=== PATIENT | female | born 1945 | race Caucasian/White ===

== ENCOUNTER → 2018-01-11 16:46 | Outpatient (CLI) | payer MEDICARE, SELFPAY | PROVIDERS: Family Provider Internal Medicine; PCP Internal Medicine; Visit Provider Otolaryngology Otolaryngology/Facial Plastic Surgery | DX: J02.9 Acute pharyngitis, unspecified (principal) | CPT/HCPCS: 87070 ==

== ENCOUNTER → 2018-10-24 12:07 | Outpatient (CLI) | payer MEDICARE, SELFPAY ==
--- NOTE | 2018-10-23 | IMM_PTH ---
PATIENT: DL PALOMINO LOC: [facility] U#:[id number] AGE/SX: 80/F ROOM: RE10/24/[address]: Dr. Juliano Ennis MD : 1945 BED: DIS: SPEC #: [id number] RECD: 10/25/18 09:40 STATUS: FREDA REQ #: [id number] KHANH: 10/23/18 00:[address]: Juliano Ennis DEPT: IMMUNOHISTOCHEMISTRY RECD BY: Kisha Stinson ENTERED: 10/25/18 09:41 SP TYPE: IMMUNO OTHR DR: Dr. Anabella Pastrana MD Tissues: A - Stomach, NOS Procedures: H Pylori (initial) PHYSICIAN & INSTITUTION [place] [id number] SPECIMEN INFORMATION: Tissue Source: A - Antral biopsy Clinical Info: K21.9, Z80.0, K62.5 Specimen Number: [id number] CPT code: 29477 METHODOLOGY: Deparaffinized sections of prefer/formalin-fixed tissue or PAP/DQ stained slides are incubated with monoclonal/polyclonal antibodies/oligonucleotide probes. Localization is made via biotin free immunoperoxidase method. Appropriate controls are performed and reacted as expected. Results on target cell population are indicated in the following table: RESULTS: ANTIBODY / CLONE RESULT Block A H Pylori (polyclonal) negative These tests were developed and their performance characteristics determined by [facility]. They may not have been cleared or approved by the U.S. Food and Drug Administration. The FDA has determined that such clearance or approval is not necessary. INTERPRETATION: A. Antral biopsy: Negative for Helicobacter pylori organisms. SJ:jen 10/25/18
--- NOTE | 2018-10-23 09:42 | EGD_PTH ---
PATIENT: DL PALOMINO LOC: [facility] U#:[id number] AGE/SX: 80/F ROOM: RE10/24/[address]: Dr. Juliano Ennis MD : 1945 BED: DIS: SPEC #: [id number] RECD: 10/24/18 12:01 STATUS: FREDA RENga #: [id number] KHANH: 10/23/18 09:[address]: Juliano Ennis DEPT: SURGICAL PATHOLOGY RECD BY: Niles Chen ENTERED: 10/24/18 13:17 SP TYPE: EGD BIOPSY OT DR: Dr. Anabella Pastrana MD Tissues: A - Gastric mucous membrane B - Right colon C - Sigmoid colon biopsy Procedures: Surgery Specimen Level IV HEADER OPERATION: EGD with biopsy and colonoscopy with biopsy PRE-OP DIAGNOSIS: K21.9, Z80.0, K62.5 TISSUE SUBMITTED: A - Antrum biopsy H/H, B - Random right colon biopsy, C - Sigmoid colon polyp MICROSCOPIC DIAGNOSIS A. Antral biopsy: Mild gastritis. See microscopic description and comment. B. Right colon, random biopsy; Fragments of colonic mucosa, no pathologic diagnosis. C. Sigmoid colon polyp, biopsy: Fragments of colonic mucosa, no pathologic diagnosis. SJ:rg 10/25/18 COMMENT A. The results of immunohistochemistry for Helicobacter pylori will be reported separately ([id number]). MICROSCOPIC DESCRIPTION Slides are reviewed. A. The specimen shows fragments of gastric mucosa with chronic inflammatory cell infiltrates in the lamina propria consisting of lymphocytes and plasma cells, consistent with mild chronic gastritis. GROSS DESCRIPTION A - Received in fixative is one container labeled with the patient's name and designated antral biopsy. The specimen consists of one irregular fragment of light quinn soft tissue that measures 0.5 x 0.3 x 0.1 cm. The specimen is totally submitted in one cassette. B - Received in fixative is one container labeled with the patient's name and designated random right colon biopsy. The specimen consists of multiple irregular fragments of light quinn soft tissue that in aggregate measure 1.5 x 0.5 x 0.1 cm. The specimen is totally submitted in one cassette. C - Received in fixative is one container labeled with the patient's name and designated sigmoid colon polyp. The specimen consists of two irregular fragments of light quinn soft tissue that in aggregate measure 0.6 x 0.2 x 0.1 cm. The specimen is totally submitted in one cassette. / SJ:rg 10/24/18 TC:3 CPT: 27935 x3
== END ==
PROVIDERS: Family Provider Internal Medicine; PCP Internal Medicine; Referring Provider Internal Medicine Gastroenterology; Visit Provider Internal Medicine Gastroenterology
DX: K21.9 Gastro-esophageal reflux disease without esophagitis (principal); K62.5 Hemorrhage of anus and rectum; Z80.0 Family history of malignant neoplasm of digestive organs
CPT/HCPCS: 88305; 88342

== ENCOUNTER 2020-03-19 08:15 | Inpatient (IN) | payer MEDICARE, SELFPAY ==
[2020-03-19] VITALS (11 sets, daily range): BP systolic 137–157; BP diastolic 67–109; PULSE 91–113; RESP 16–20; TEMP 36.6–38.1; O2SAT 82–98; BMI 37.0; BMI 37.2
--- NOTE | 2020-03-19 08:38 | EKG12_ITS ---
Test Reason : ABD PAIN Blood Pressure : / mmHG Vent. Rate : 100 BPM Atrial Rate : 100 BPM P-R Int : 202 ms QRS Dur : 086 ms QT Int : 326 ms P-R-T Axes : 042 -23 060 degrees QTc Int : 420 ms Normal sinus rhythm Normal ECG Confirmed by TALA CARNES, ILA ([id number]), photograph editor PENG BA ([id number]) on 03/24/2020 9:25:44 AM Referred By: JOE Confirmed By:RASHEL EDGAR MD
[2020-03-19] MEDS: HYDROmorphone 1 MG/ML Syringe IV (08:48)
[2020-03-19] MEDS: Ondansetron 4 MG/2 ML Vial IV ×3 (08:48→23:29)
--- NOTE | 2020-03-19 08:50 | CT_ITS ---
STUDY: CT ABDOMEN AND PELVIS WITHOUT CONTRAST REASON FOR EXAM: Female, 74 years old. NAUSEA AND VOMITING SINCE LAST NIGHT RADIATION DOSAGE (If Supplied By Facility): CTDIvol = ( 15.18 ) mGy, DLP = ( 769.85 ) mGycm TECHNIQUE: Transaxial images were obtained from the dome of the diaphragm to the symphysis pubis without oral contrast, and without intravenous contrast. Sagittal and coronal images were reconstructed. Individualized dose optimization techniques were used for this CT. COMPARISON: None. FINDINGS: Minimal increased markings at the lung bases suggestive of atelectasis and/or scarring. Coronary artery calcification. Normal liver. There are multiple small gallstones. The gallbladder is slightly distended. Normal spleen. Mild degree of pancreatitis should be ruled out.There is a mild degree of increased markings in the root of the mesentery. This is nonspecific and may represent changes secondary to inflammatory process. There is thickening of the left perinephric fascia. Normal bilateral adrenal glands. Normal right kidney. There is a punctate nonobstructive calculus in the lower pole calyx of the left kidney. There is a small hiatal hernia. Normal small intestine. There are multiple colonic diverticula consistent with diverticulosis. There is non-visualization of the appendix. There is diffuse atherosclerotic calcification of the abdominal aorta, without a demonstrated aneurysm. Normal inferior vena cava. Normal retroperitoneum. Normal urinary bladder. There is absence of the uterus consistent with a prior hysterectomy. Normal abdominal wall. There are diffuse degenerative changes of the visualized lumbar spine. Marked degree of levoscoliosis. CT/Abdomen/Pelvis without Cont IMPRESSION: Mildly distended gallbladder containing multiple small stones. Increased markings in the root of the mesentery and in the peripancreatic region extending into the left anterior pararenal space. Pancreatitis should be ruled out. Electronically Signed: Luis Lynne, at 9:45 EDT , Service support ,
--- NOTE | 2020-03-19 08:51 | ED.DCSUM_ITS ---
- ER Visit Summary Date of Service: 03/19/20 Chief Complaint: [Abdominal pain] History of Present Illness: The patient is a 74 F [does the emergency department complaint of abdominal pain that started around noon yesterday. Patient states that she had eaten around 8 AM but the pain did not start up about 4 hours later. She described the pain as sharp and stabbing in the upper abdomen radiating into her chest and at times down her left arm. Patient states the pain seems to radiate out her back as well. She has had multiple episodes of nausea and vomiting now having dry heaves. At times she is noted some blood- tinged emesis. No history of peptic ulcer disease. She still has her gallbladder. She is had prior appendectomy. Patient is also had prior hysterectomy. Patient denies urinary symptoms. She denies any fever. Patient has history of diabetes, hypertension, and high cholesterol.] Physical Examination: [HEENT-PERRLA, EOMI. Cranial nerves II through XII grossly intact. TMs clear. Mucous membranes moist. No adenopathy. Cardiovascular-regular rate and rhythm without murmur or ectopy Lungs-clear to auscultation, chest wall stable without crepitus or subcu emphysema Abdomen-normoactive bowel sounds, soft. Patient has diffuse tenderness to the upper abdomen in the epigastric region as well as the right upper quadrant with guarding. She is got a positive Leong sign. She does have guarding. No rebound or rigidity noted. Extremities-intact ?4, normal range of motion, normal pulses, atraumatic] Test Results: [EKG obtained on arrival shows sinus rhythm with a ventricular rate of 100 bpm with no acute segment changes. CBC with differential obtained showed a white count 12.2, hemoglobin 13, hematocrit 38, placed 346. Chemistries unremarkable. LFTs showed a total bili of 1.9, alk phos 128, ALT 89, AST 74, lipase is 15,985. Troponin was less than 0.015. CT scan of the abdomen pelvis obtained showed mildly distended gallbladder with small stones and sludge noted patient also had increased markings around the pancreas consistent with pancreatitis. Patient had also an ultrasound of the gallbladder that showed small gallstones with a gallbladder wall thickness of 2.6 mm and the common bile duct diameter 3.4 mm. There was no pericholecystic fluid. Patient was noted to have some sludge.] Emergency Department Course and Treatment: [IV line established. Patient was me dicated with Zofran 4 mg IV as well as Dilaudid 1 mg IV.] Treatment Plan: [Case discussed with hospitalist will evaluate patient for admission. Hospitalist did speak with general surgeon on-call.] Disposition: [Admit] Impression: [Abdominal pain Acute pancreatitis Cholelithiasis] This note was generated with [employer] dictation software. It may contain incorrect words, spelling, and punctuation that were not noted in review of the chart prior to signing ED Disposition - Plan for ED Patient: Referrals: Anabella Pastrana MD [Primary Care Provider] -
[2020-03-19] MEDS: 0.9% Normal Saline 1,000 ML 999 ML IV (08:53)
[2020-03-19 08:59] LABS: Absolute Lymphocyte Count 0.99 X10^3/uL (0.83-4.51); Absolute Neutrophil Count 10.6 X10^3/uL (2.0-7.7); Basophil# 0.01 X10^3/uL; Basophil% 0.1 % (0-1); Hemoglobin 13.1 g/dL (12.0-15.0); Lymphocyte # 0.99 X10^3/ul (4.0); Lymphocyte % 8.1 % (19-41); Mean Corp Hgb Conc 34.5 g/dL (32-36); Mean Corpuscular Hgb 29.2 pg (27.0-32.0); Mean Corpuscular Volume 84.8 fL (81-99); Mean Platelet Vol. 9.6 fl (6.2-12.0); Monocyte# 0.56 X10^3/uL; Monocyte% 4.6 % (0-10); NRBC Flagged by Analyzer 0 % (0-5); Neutrophil # 10.62 X10^3/uL (2.7-7.7); Neutrophil % 86.9 % (47-70); Platelet Count 346 K/mm3 (150-450); RBC Distribution Width CV 14.8 % (11.6-14.6); RBC Distribution Width SD 43.3 fl (35.1-43.9); Red Blood Count 4.48 M/mm3 (4.2-5.4); White Blood Count 12.2 K/mm3 (4.4-11.0)
[2020-03-19 09:18] LABS: ALB/GLOB Ratio 0.9 RATIO (0.9-2.4); AST(SGOT) 74 U/L (15-37); Alanine Aminotransfer ALT/SGPT 89 U/L (13-56); Albumin, Serum 3.9 g/dL (3.2-5.0); Alkaline Phosphatase 128 U/L (45-117); Anion Gap 5 (5-15); BUN 11 mg/dL (7-18); BUN/Creat Ratio 12.6 RATIO (10-20); Calcium,Total 8.8 mg/dL (8.5-10.1); Chloride 98 mmol/L (98-107); Creatinine, Serum 0.87 mg/dL (0.55-1.02); EST Glomerular Filtration Rate 67 mL/min (>60); Est Glom Filt Rate - Afr Amer 81 mL/min (>60); Estimated Creatinine Clearance 41.37 ml/min; Globulin 4.2 g/dL (2.2-4.2); Glucose 191 mg/dL (74-106); Lipase 15985 U/L (73-393); Potassium 3.5 mmol/L (3.5-5.1); Protein, Total 8.1 g/dL (6.4-8.2); Sodium Level 133 mmol/L (136-145)
[2020-03-19 09:23] LABS: Lactic Acid 1.5 mmol/L (0.4-1.9)
--- NOTE | 2020-03-19 09:28 | US_ITS ---
STUDY: ABDOMINAL ULTRASOUND - RIGHT UPPER QUADRANT REASON FOR VISIT: Female, 74 years old RT ABD PAIN X 2 DAYS TECHNIQUE: Ultrasound evaluation of the right upper quadrant was performed with real-time and static ko-scale imaging. TECHNICAL QUALITY: Adequate. COMPARISON: Comparison is made with prior CT scan abdomen and pelvis done earlier in the day. FINDINGS: Liver: The liver measures 17.0 cm. There is increased echogenicity consistent with fatty infiltration. The bile ducts are within normal limits. There is hepatic color flow. The direction of portal flow is hepatopetal. There is no demonstrated mass lesion. Gallbladder: Normal distended gallbladder. The gallbladder wall measures 2.6 mm. There is a negative sonographic Leong''s sign. There is no pericholecystic fluid. There are multiple echogenic structures within the gallbladder, consistent with multiple small gallstones. Sludge is also seen within the gallbladder lumen. Common Bile Duct (C.B.D.): The common bile duct measures 3.4 mm. Pancreas: Normal size of the head, body and tail of the pancreas. There is increased echogenicity of the pancreas. There is no demonstrated pancreatic mass or cyst. Right Kidney: Normal size of the right kidney. The right kidney measures 11.6 cm x 5.6 cm x 4.9 cm. Normal renal cortex. The right cortex measures 1.7 cm. There is no demonstrated renal mass or cyst. There is no right hydronephrosis. US/Abdomen Limited IMPRESSION: Fatty infiltration of the liver. Multiple small gallstones and sludge within the gallbladder lumen. Electronically Signed: Luis Lynne, at 10:37 EDT , Service support ,
[2020-03-19 10:43] LABS: Mucous, Urine 0 SEEN /hpf (<or=2+); Red Blood Cells-Urine 0 SEEN /hpf (0-5); White Blood Cells 0 SEEN /hpf (0-5)
[2020-03-19 10:44] LABS: Color, Urine Yellow (Yellow); Glucose, Dipstick 50 mg/dl (Normal); Ketone-Dipstick 5 mg/dl (Negative); Leukocyte Esterase-Dipstick Negative /ul (Negative); Nitrite-Dipstick Negative (Negative); Occult Blood-Urine Negative /ul (Negative); Protein-Dipstick 30 mg/dl (Negative); Specific Gravity, Urine 1.025 (1.002-1.030); Urine Bilirubin Dipstick Negative (Negative); Urine Clarity Sl. Cloudy (Clear); Urine Urobilinogen 1 mg/dl (Normal)
--- NOTE | 2020-03-19 10:44 | NURSING ---
DR PLUMMER FOR DR SANABRIA
[2020-03-19 10:52] LABS: Bacteria 1+ /hpf (None Seen); Squamous Epithelial Cells - UA 0-5 SEEN /hpf (5-10)
--- NOTE | 2020-03-19 10:59 | NURSING ---
MED SURG KAVITHA ROGERREATITIS, CHOLELITHIASIS
--- NOTE | 2020-03-19 11:09 | HP.PCM_ITS ---
Problem List (1) Gallstones Status: Acute (2) Acute pancreatitis Status: Acute (3) Type 2 diabetes mellitus Status: Chronic (4) Hypothyroidism Status: Chronic (5) Hypertension Status: Chronic (6) Asthma Status: Chronic (7) Hyperlipidemia Status: Chronic (8) GERD (gastroesophageal reflux disease) Status: Chronic History of Present Illness Date of Admission: 03/19/20 Chief Complaint: Abdominal pain. The patient is a 74 year old F with past medical history as mentioned above presented to the emergency room because of abdominal pain. Her symptoms started yesterday morning after she took her breakfast around 11 AM, started having abdominal pain, upper abdomen/epigastric pain, sharp pain, 10 out of 10 in severity, constant, radiates to the back and up to her chest, associated with nausea and vomiting, no relieving or aggravating factors and she could not keep anything down to her stomach since yesterday morning. She denied fever or chills. She mentioned that she took Gaviscon as well as lansoprazole and both did not help. In the emergency department, she was tachycardic, afebrile, blood pressure was slight elevated, pulse ox was 98% on room air. Routine blood work was remarkable for leukocytosis,, otherwise normal. LFT revealed total bilirubin of 1.9, AST of 74 and ALT of 89, alkaline phosphatase was 129. Lipase was 15,985. EKG revealed normal sinus rhythm without evidence of acute segment changes. Troponin was negative. CT scan abdomen and pelvis revealed increased marking in the root of mesentery and in the peripancreatic region consistent with acute pancreatitis, gallbladder was mildly distended with multiple small gallstones. Ultrasound liver revealed fatty liver, multiple small gallstones and sludge, CBD diameter was 3.4 mm. She is being admitted for acute pancreatitis for treatment. Past Medical History Past Medical History (Chronic Problems): Chronic Problems Type 2 diabetes mellitus (Chronic) Hypothyroidism (Chronic) Hypertension (Chronic) Asthma (Chronic) Hyperlipidemia (Chronic) GERD (gastroesophageal reflux disease) (Chronic) Allergies Penicillins Allergy (Verified 03/19/20 08:20) Rash Sulfa (Sulfonamide Antibiotics) Allergy (Verified 03/19/20 08:20) Rash sertraline Adverse Reaction (Verified 03/19/20 08:20) Other CALCIUM CITRATE Adverse Reaction (Uncoded 03/19/20 08:20) Other Surgical History: appendectomy, hysterectomy Psychiatric History: No pertinent psych hx FIELD EDUCATION COORDINATOR History: No pertinent FIELD EDUCATION COORDINATOR history Lives: Spouse/ Significant Other Smoking Status: Never smoker Alcohol: None Drugs: None - *Family History Maternal History Items: No pertinent history Paternal History Items: No pertinent history Review of Systems Constitutional: Reports: Anorexia. Denies: Chills, Fever, Weakness Eyes: Denies: Blurred vision, Double vision, Drainage, Redness HEENT: Denies: Difficulty Hearing, Ear Pain, Eye Pain, Nasal Congestion, Sore Throat Cardiovascular: Denies: Chest Pain, Claudication, Chest Pressure, Edema, Heaviness, Palpitations, Paroxysmal Noc. Dyspnea, Syncope Respiratory: Denies: Cough, Pleuritic Pain, Shortness of Breath, Sputum production, Wheezing Gastrointestinal: Reports: Abdominal Pain, Nausea, Vomiting. Denies: Constipation, Diarrhea, Hematochezia, Melena Genitourinary: Denies: Dysuria, Frequency, Hematuria Musculoskeletal: Denies: Arm Pain, Back Pain, Foot Pain Skin: Denies: Dryness, Rash Neurological: Denies: Balance problems, Double vision, Slurred speech, Confusion, Headaches, Incoordination, Numbness Psychiatric: Denies: Anxiety, Depression Endocrine: Denies: Change in Body Habitus, Polydipsia, Polyuria VTE Information - Inpt Only VTE Present on Admission: No VTE Mechan Device Prophylaxis: None VTE Pharm Prophylaxis ordered?: Yes Patient Problems: Active and Suspected Problems Gallstones (Acute) Acute pancreatitis (Acute) - Physical Exam Vitals/I&O's: Vital Signs Temp Pulse Resp BP Pulse Ox 98 F 113 H 20 H 157/109 H 98 03/19/20 08:17 03/19/20 08:17 03/19/20 10:44 03/19/20 08:17 03/19/20 08:17 Oxygen Delivery Method Room Air Weight: 190 lb Body Mass Index (BMI) 37.0 General: Alert, Oriented x3, Cooperative, No apparent distress HEENT: Atraumatic, PERRLA, EOMI, Normocephalic Oral: Moist Mucosa, No Gingival or Mucosal Lesions/ Ulcerations Neck: Supple, No JVD, Negative Carotid Bruits, Trachea Midline, Thyroid Normal Size and Texture Lungs: Clear to auscultation, Normal air movement, No rhonchi, No wheeze, No rales Cardiovascular: Regular rate, Regular Rhythm, Normal S1, Normal S2, No murmurs, PMI Normal, Tachycardic Abdomen: Bowel Sounds Present, Soft, Non-Distended, No Hepato-splenomegaly, Tender - Epigastric tenderness, no guarding or rigidity. Extremities: No clubbing, No cyanosis, No edema Skin: No rashes, No breakdown Lymphatic: No Cervical, Supraclavicular, or Inguinal Adenopathy Neurological: Cranial nerves II-XII grossly intact, Motor Exam 5/5 strength throughout Psych/Mental Status: Normal Affect, Appropriate, Alert and oriented to time, place, person, mood and affect Laboratory Results 03/19/20 08:50: WBC 12.2 H, RBC 4.48, Hgb 13.1, Hct 38.0, MCV 84.8, MCH 29.2, MCHC 34.5, RDW Std Deviation 43.3, RDW Coeff of Clarence 14.8 H, Plt Count 346, MPV 9.6, Immature Gran % (Auto) 0.300, Neut % (Auto) 86.9 H, Lymph % (Auto) 8.1 L, [place] % (Auto) 4.6, Eos % (Auto) 0.0, Baso % (Auto) 0.1, Absolute Neuts (auto) 10.6 H, Absolute Lymphs (auto) 0.99, Nucleated RBC % 0 03/19/20 08:50: Sodium 133 L, Potassium 3.5, Chloride 98, Carbon Dioxide 30.0, Anion Gap 5, BUN 11, Creatinine 0.87, Estim Creat Clear Calc 41.37, Est GFR (MDRD) Af Amer 81, Est GFR (MDRD) Non-Af 67, BUN/Creatinine Ratio 12.6, Glucose 191 H, Calcium 8.8, Total Bilirubin 1.90 H, AST 74 H, ALT 89 H, Alkaline Phosphatase 128 H, Troponin I < 0.015, Total Protein 8.1, Albumin 3.9, Globulin 4.2, Albumin/Globulin Ratio 0.9, Lipase 04234 H 03/19/20 08:50: Lactic Acid 1.5 03/19/20 10:40: Urine Color Yellow, Urine Clarity Sl. Cloudy, Urine pH 5.0, Ur Specific [place] 1.025, Urine Protein 30 H, Urine Glucose (UA) 50 H, Urine Ketones 5 H, Urine Occult Blood Negative, Urine Nitrite Negative, Urine Bilirubin Negative, Urine Urobilinogen 1 H, Ur Leukocyte Esterase Negative, Urine RBC 0 SEEN, Urine WBC 0 SEEN, Ur Squamous Epith Cells 0-5 SEEN, Urine Bacteria 1+, Urine Mucus 0 SEEN Clinical Impression(s) from Imaging Studies Abdomen/Pelvis CT 03/19/20 08:50 IMPRESSION: Mildly distended gallbladder containing multiple small stones. Increased markings in the root of the mesentery and in the peripancreatic region extending into the left anterior pararenal space. Pancreatitis should be ruled out. Electronically Signed: Luis Lynne, at 9:45 EDT , Service support , Abdomen Ultrasound 03/19/20 09:28 IMPRESSION: Fatty infiltration of the liver. Multiple small gallstones and sludge within the gallbladder lumen. Electronically Signed: Luis Lynne, at 10:37 EDT , Service support , Current Medications Sodium Chloride () 1,000 mls @ 125 mls/hr IV .Q8H KELL Assessment/Plan All Active Problems Gallstones (Acute) Acute pancreatitis (Acute) This is a 74 years old female patient presented with abdominal pain with nausea and vomiting and she was found to have acute pancreatitis and she is being admitted for treatment. #1 acute pancreatitis: CT scan abdomen as well as ultrasound liver reviewed. CBD diameter on ultrasound was 3.4 mm. LFT revealed elevated total bilirubin as well as slight elevated liver transaminases and alkaline phosphatase. This acute pancreatitis could be due to gallstone pancreatitis with possibly stone passed down. Patient denied alcohol drinking. Plan: Admit to MedSurg, telemetry, n.p.o., IV fluids, IV morphine PRN for pain, IV antiemetics, IV Protonix twice daily, IV Phenergan as needed, general surgery consult, repeat CBC, CMP and lipase tomorrow morning. #2 elevated LFT: Without evidence of acute cholecystitis on ultrasound. This is could be due to CBD stone that passed down already. Plan as above, repeat LFT tomorrow morning, repeat lipase tomorrow morning. #3 type 2 diabetes mellitus: N.p.o., IV fluids, Accu-Cheks every 6 hours, insulin sliding scale, hold p.o. oral hypoglycemics. #4 hypertension: Blood pressure stable, hold antihypertensive medication at this time, start IV allergy PRN. #5 hypothyroidism: Hold levothyroxine. #6 bronchial asthma: Clinically stable, pulse ox maintained on room air. Plan for albuterol PRN. #7 hyperlipidemia: Hold statins. #8 GERD: Start IV Protonix twice daily. #9 DVT prophylaxis: Subcu Lovenox. This note was generated with [employer] dictation software. It may contain incorrect words, spelling, and punctuation that were not noted in checking the note before signing. Inpatient E&M: 56649 Init Hosp L3
[2020-03-19] MEDS: 0.9% Saline Lock 10 ML Syringe IV ×3 (12:51→16:16)
[2020-03-19 13:01] LABS: Bedside Glucose 176 mg/dL (70-110)
--- NOTE | 2020-03-19 13:03 | PCM.CONS.GEN ---
Problem List (1) Gallstone pancreatitis Status: Acute Reason for Consult Date of Consultation: 03/19/20 History of Present Illness: The patient is a 74 year old F admitted with gallstone pancreatitis. The patient reports that yesterday morning she began having epigastric pain that radiated into her chest. She has been having a lot of nausea and vomiting as well. She does not report any gallbladder issues in the past. She is not having any fevers or chills. She reports with the amount of pain now is yesterday. Past Medical History Past Medical History (Chronic Problems): Chronic Problems Type 2 diabetes mellitus (Chronic) Hypothyroidism (Chronic) Hypertension (Chronic) Asthma (Chronic) Hyperlipidemia (Chronic) GERD (gastroesophageal reflux disease) (Chronic) Allergies Penicillins Allergy (Verified 03/19/20 08:20) Rash Sulfa (Sulfonamide Antibiotics) Allergy (Verified 03/19/20 08:20) Rash sertraline Adverse Reaction (Verified 03/19/20 08:20) Other CALCIUM CITRATE Adverse Reaction (Uncoded 03/19/20 08:20) Other Home Medications: Ambulatory Orders Medication Instructions Recorded Albuterol Sulfate [Albuterol 2 puff INHALATION Q6H PRN PRN 03/19/20 Sulfate HFA] Amlodipine [Norvasc] 10 mg PO DAILY 03/19/20 Atorvastatin Calcium 10 mg PO QHS 03/19/20 Ergocalciferol (Vitamin D2) 50,000 unit PO QWEEK 03/19/20 [Vitamin D2] Irbesartan/Hydrochlorothiazide 1 ea PO DAILY 03/19/20 [Irbesartan-Hctz 300-12.5 mg Tb] Lansoprazole [Prevacid] 30 mg PO QODAY 03/19/20 Levothyroxine [Synthroid] 75 mcg PO DAILY 03/19/20 Metformin HCl [Glucophage] 2 tab PO BID 03/19/20 Metoprolol Tartrate 25 mg PO BID 03/19/20 Potassium Chloride 8 meq PO BID 03/19/20 Surgical History: appendectomy, hysterectomy Psychiatric History: No pertinent psych hx [employer] History: No pertinent [employer] history Lives: Spouse/ Significant Other Smoking Status: Never smoker Alcohol: None Drugs: None - *Family History Maternal History Items: No pertinent history Paternal History Items: No pertinent history Review of Systems Constitutional: Denies: Anorexia, Fever HEENT: Denies: Difficulty Swallowing Cardiovascular: Denies: Chest Pain Respiratory: Denies: Cough, Shortness of Breath Gastrointestinal: Reports: Abdominal Pain, Nausea, Vomiting. Denies: Constipation, Diarrhea Genitourinary: Denies: Dysuria Hematologic/ Lymphatic: Denies: Anemia Patient Problems: Active and Suspected Problems Gallstone pancreatitis (Acute) Gallstones (Acute) Acute pancreatitis (Acute) - Physical Exam Vitals/I&O's: Vital Signs Temp Pulse Resp BP Pulse Ox 98.6 F 96 18 155/83 H 94 03/19/20 12:33 03/19/20 12:33 03/19/20 12:33 03/19/20 12:33 03/19/20 12:33 Oxygen Delivery Method Room Air Weight: 190 lb 8 oz Body Mass Index (BMI) 37.2 General: Alert, Oriented x3, Cooperative Neck: No JVD Lungs: Normal air movement Cardiovascular: Regular rate, Regular Rhythm Abdomen: Soft, Non-Distended, Tender - Tender in the epigastric region and right upper quadrant Extremities: No clubbing Musculoskeletal: No Muscle Wasting Neurological: Cranial nerves II-XII grossly intact Psych/Mental Status: Normal Affect Laboratory Results 03/19/20 08:50: WBC 12.2 H, RBC 4.48, Hgb 13.1, Hct 38.0, MCV 84.8, MCH 29.2, MCHC 34.5, RDW Std Deviation 43.3, RDW Coeff of Clarence 14.8 H, Plt Count 346, MPV 9.6, Immature Gran % (Auto) 0.300, Neut % (Auto) 86.9 H, Lymph % (Auto) 8.1 L, [place] % (Auto) 4.6, Eos % (Auto) 0.0, Baso % (Auto) 0.1, Absolute Neuts (auto) 10.6 H, Absolute Lymphs (auto) 0.99, Nucleated RBC % 0 03/19/20 08:50: Sodium 133 L, Potassium 3.5, Chloride 98, Carbon Dioxide 30.0, Anion Gap 5, BUN 11, Creatinine 0.87, Estim Creat Clear Calc 41.37, Est GFR (MDRD) Af Amer 81, Est GFR (MDRD) Non-Af 67, BUN/Creatinine Ratio 12.6, Glucose 191 H, Calcium 8.8, Total Bilirubin 1.90 H, AST 74 H, ALT 89 H, Alkaline Phosphatase 128 H, Troponin I < 0.015, Total Protein 8.1, Albumin 3.9, Globulin 4.2, Albumin/Globulin Ratio 0.9, Lipase 11177 H 03/19/20 08:50: Lactic Acid 1.5 03/19/20 10:40: Urine Color Yellow, Urine Clarity Sl. Cloudy, Urine pH 5.0, Ur Specific [place] 1.025, Urine Protein 30 H, Urine Glucose (UA) 50 H, Urine Ketones 5 H, Urine Occult Blood Negative, Urine Nitrite Negative, Urine Bilirubin Negative, Urine Urobilinogen 1 H, Ur Leukocyte Esterase Negative, Urine RBC 0 SEEN, Urine WBC 0 SEEN, Ur Squamous Epith Cells 0-5 SEEN, Urine Bacteria 1+, Urine Mucus 0 SEEN 03/19/20 12:47: POC Glucose 176 H 03/19/20 12:55: Total Bilirubin Pending, Direct Bilirubin Pending, AST Pending, ALT Pending, Alkaline Phosphatase Pending, Total Protein Pending, Albumin Pending Clinical Impression(s) from Imaging Studies Abdomen/Pelvis CT 03/19/20 08:50 IMPRESSION: Mildly distended gallbladder containing multiple small stones. Increased markings in the root of the mesentery and in the peripancreatic region extending into the left anterior pararenal space. Pancreatitis should be ruled out. Electronically Signed: Luis Lynne, at 9:45 EDT , Service support , Abdomen Ultrasound 03/19/20 09:28 IMPRESSION: Fatty infiltration of the liver. Multiple small gallstones and sludge within the gallbladder lumen. Electronically Signed: Luis yLnne, at 10:37 EDT , Service support , Current Medications Albuterol Sulfate (Ventolin Aerosols) 2.5 mg INHALATION Q4H PRN PRN PRN Reason: Shortness of Breath/Wheezing Enoxaparin Sodium (Lovenox) 40 mg SC DAILY [facility] Hydralazine HCl (Apresoline Iv) 10 mg IV Q6H PRN PRN PRN Reason: for SBP>160 Lactated Ringer's () 1,000 mls @ 150 mls/hr IV .Q6H40M [facility] Pantoprazole Sodium 40 mg/ (Sodium Chloride) 110 mls @ 330 mls/hr IV Q12 [facility] Insulin Human Lispro (Humalog Kwikpen (Bkc)) 0 unit SC Q6 [facility]; Protocol Morphine Sulfate () 2 mg IV Q3H PRN PRN PRN Reason: Pain Score 6-10/10 Ondansetron HCl (Zofran) 4 mg IV Q8H PRN PRN PRN Reason: NAUSEA/VOMITING Last Admin: 03/19/20 12:50 Dose: 4 mg Documented by: Promethazine HCl (Phenergan) 6.25 mg IV Q6H PRN PRN PRN Reason: NAUSEA/VOMITING Sodium Chloride () 10 - 40 ml IV UD PRN PRN Reason: SALINE FLUSH Last Admin: 03/19/20 12:51 Dose: 10 ml Documented by: Assessment/Plan All Active Problems Gallstone pancreatitis (Acute) Gallstones (Acute) Acute pancreatitis (Acute) 74-year-old female with gallstone pancreatitis 1. Patient had an ultrasound which showed small gallstones and sludge. Patient has elevated LFTs at this time. There was slightly elevated. She has markedly elevated lipase. I discussed ERCP and cholecystectomy with her. I discussed that the cholecystectomy with cholangiogram will take place once her pancreatitis has resolved. I discussed if an ERCP is necessary. 2. I repeated hepatic panel this afternoon and it slightly decreased from this morning. I will hold off on ERCP at the time being. I will recheck LFTs in the morning. Or for LFTs rise I will perform ERCP tomorrow. If they continue to decline I will perform cholangiogram during laparoscopic cholecystectomy once pancreatitis resolves. 3. Continue n.p.o. and IV fluids. Trevon Vee MD Pager: [facility] [address] [place] [address], [address] [place] [address] Office:
[2020-03-19 13:17] LABS: AST(SGOT) 63 U/L (15-37); Alanine Aminotransfer ALT/SGPT 79 U/L (13-56); Albumin, Serum 3.6 g/dL (3.2-5.0); Alkaline Phosphatase 118 U/L (45-117); Bilirubin, Direct 0.38 mg/dL (0.00-0.30); Protein, Total 7.6 g/dL (6.4-8.2)
--- NOTE | 2020-03-19 13:34 | NURSING ---
Home med list completed once patient arrived to unit- this RN borrowed pt [employer] card to be connected to her [facility] to verify home medications. Same completed at this time with assistance of Germán at [facility].
[2020-03-19] MEDS: Lactated Ringers 1,000 ML 150 ML IV ×2 (13:44→20:37)
[2020-03-19] MEDS: Morphine 2 MG/ML Syringe IV ×2 (16:10→23:29)
[2020-03-19] MEDS: proMETHazine 25 MG/ML Syringe 6.25 MG IV (16:15)
[2020-03-19 18:40] LABS: Bedside Glucose 110 mg/dL (70-110)
[2020-03-19 23:45] LABS: Bedside Glucose 115 mg/dL (70-110)
[2020-03-20] VITALS (13 sets, daily range): BP systolic 129–158; BP diastolic 54–83; PULSE 80–101; RESP 16–18; TEMP 37.3–38.3; O2SAT 93–97
[2020-03-20] MEDS: Lactated Ringers 1,000 ML 150 ML IV (02:35)
[2020-03-20] MEDS: Morphine 2 MG/ML Syringe IV ×4 (04:04→20:21)
[2020-03-20] MEDS: proMETHazine 25 MG/ML Syringe 6.25 MG IV (04:04)
[2020-03-20 06:16] LABS: Absolute Lymphocyte Count 1.32 X10^3/uL (0.83-4.51); Absolute Neutrophil Count 13.7 X10^3/uL (2.0-7.7); Basophil# 0.02 X10^3/uL; Basophil% 0.1 % (0-1); Eosinophil# 0.01 X10^3/uL; Eosinophils% 0.1 % (0-5); Hematocrit 39.6 % (37-47); Hemoglobin 12.6 g/dL (12.0-15.0); Lymphocyte # 1.32 X10^3/ul (4.0); Lymphocyte % 7.9 % (19-41); Mean Corp Hgb Conc 31.8 g/dL (32-36); Mean Corpuscular Hgb 27.6 pg (27.0-32.0); Mean Corpuscular Volume 86.8 fL (81-99); Mean Platelet Vol. 9.7 fl (6.2-12.0); Monocyte# 1.54 X10^3/uL; Monocyte% 9.3 % (0-10); NRBC Flagged by Analyzer 0 % (0-5); Neutrophil # 13.66 X10^3/uL (2.7-7.7); Neutrophil % 82.1 % (47-70); POSITIVE DIFFERENTIAL YES; Platelet Count 346 K/mm3 (150-450); RBC Distribution Width CV 14.6 % (11.6-14.6); RBC Distribution Width SD 46.6 fl (35.1-43.9); Red Blood Count 4.56 M/mm3 (4.2-5.4); White Blood Count 16.6 K/mm3 (4.4-11.0)
[2020-03-20 06:18] LABS: Differential Indicated SCAN CRITERIA MET
[2020-03-20 06:45] LABS: ALB/GLOB Ratio 0.8 RATIO (0.9-2.4); AST(SGOT) 43 U/L (15-37); Alanine Aminotransfer ALT/SGPT 62 U/L (13-56); Albumin, Serum 3.1 g/dL (3.2-5.0); Alkaline Phosphatase 110 U/L (45-117); Anion Gap 4 (5-15); BUN 6 mg/dL (7-18); BUN/Creat Ratio 8.4 RATIO (10-20); Calcium,Total 8.3 mg/dL (8.5-10.1); Chloride 102 mmol/L (98-107); Creatinine, Serum 0.72 mg/dL (0.55-1.02); Differential Comment SCANNED; EST Glomerular Filtration Rate 85 mL/min (>60); Est Glom Filt Rate - Afr Amer 102 mL/min (>60); Estimated Creatinine Clearance 35.99 ml/min; Glucose 99 mg/dL (74-106); Lipase 4510 U/L (73-393); Potassium 3.3 mmol/L (3.5-5.1); Protein, Total 7.1 g/dL (6.4-8.2); Sodium Level 136 mmol/L (136-145)
[2020-03-20 06:45] LABS: Bedside Glucose 101 mg/dL (70-110)
--- NOTE | 2020-03-20 08:15 | PCM.PROGNOTE ---
Patient Problems: Active and Suspected Problems Gallstone pancreatitis (Acute) Gallstones (Acute) Acute pancreatitis (Acute) Subjective: Chief complaint: Follow-up after admission for acute gallstone pancreatitis. Patient seen and examined. No acute events overnight. Abdominal pain is getting better but it is more diffuse. She complains of dark urine. Denies dysuria or foul-smelling urine. Denied nausea or vomiting this morning. She started having spikes of low-grade fever. Blood pressure and heart rate are stable, pulse ox is 96% on 2 L. - Physical Exam Vitals/I&O's: Vital Signs Temp Pulse Resp BP Pulse Ox 99.9 F H 91 16 129/67 H 96 03/20/20 02:35 03/20/20 04:05 03/20/20 02:35 03/20/20 02:35 03/20/20 02:35 Oxygen Flow Rate (L/min) 2 Oxygen Delivery Method Nasal Cannula Weight: 190 lb 8 oz Body Mass Index (BMI) 37.2 Intake and Output for Last 24 Hours 03/18/20 03/19/20 03/20/20 23:59 23:59 23:59 Intake Total 2210.0 / 2210.0 895 / 895 Output Total 650 / 650 200 / 200 Balance 1560.0 / 1560.0 695 / 695 General: Alert, Oriented x3, Cooperative, - - Minimally short of breath. HEENT: Atraumatic, PERRLA, EOMI, Normocephalic Oral: Moist Mucosa, No Gingival or Mucosal Lesions/ Ulcerations Neck: Supple, No JVD, Negative Carotid Bruits, Trachea Midline, Thyroid Normal Size and Texture Lungs: Clear to auscultation, Normal air movement, No rhonchi, No wheeze, No rales, Diminished Cardiovascular: Regular rate, Regular Rhythm, Normal S1, Normal S2, PMI Normal Abdomen: Bowel Sounds Present, Soft, Non-Distended, No Hepato-splenomegaly, Tender - Epigastric and right upper quadrant tenderness. Extremities: No clubbing, No cyanosis, No edema Skin: No rashes, No breakdown Lymphatic: No Cervical, Supraclavicular, or Inguinal Adenopathy Neurological: Cranial nerves II-XII grossly intact, Neuro grossly intact Psych/Mental Status: Normal Affect, Appropriate, Alert and oriented to time, place, person, mood and affect Laboratory Results 03/19/20 08:50: WBC 12.2 H, RBC 4.48, Hgb 13.1, Hct 38.0, MCV 84.8, MCH 29.2, MCHC 34.5, RDW Std Deviation 43.3, RDW Coeff of [place] 14.8 H, Plt Count 346, MPV 9.6, Immature Gran % (Auto) 0.300, Neut % (Auto) 86.9 H, Lymph % (Auto) 8.1 L, [place] % (Auto) 4.6, Eos % (Auto) 0.0, Baso % (Auto) 0.1, Absolute Neuts (auto) 10.6 H, Absolute Lymphs (auto) 0.99, Nucleated RBC % 0 03/19/20 08:50: Sodium 133 L, Potassium 3.5, Chloride 98, Carbon Dioxide 30.0, Anion Gap 5, BUN 11, Creatinine 0.87, Estim Creat Clear Calc 41.37, Est GFR (MDRD) Af Amer 81, Est GFR (MDRD) Non-Af 67, BUN/Creatinine Ratio 12.6, Glucose 191 H, Calcium 8.8, Total Bilirubin 1.90 H, AST 74 H, ALT 89 H, Alkaline Phosphatase 128 H, Troponin I < 0.015, Total Protein 8.1, Albumin 3.9, Globulin 4.2, Albumin/Globulin Ratio 0.9, Lipase 30031 H 03/19/20 08:50: Lactic Acid 1.5 03/19/20 10:40: Urine Color Yellow, Urine Clarity Sl. Cloudy, Urine pH 5.0, Ur Specific [place] 1.025, Urine Protein 30 H, Urine Glucose (UA) 50 H, Urine Ketones 5 H, Urine Occult Blood Negative, Urine Nitrite Negative, Urine Bilirubin Negative, Urine Urobilinogen 1 H, Ur Leukocyte Esterase Negative, Urine RBC 0 SEEN, Urine WBC 0 SEEN, Ur Squamous Epith Cells 0-5 SEEN, Urine Bacteria 1+, Urine Mucus 0 SEEN 03/19/20 12:47: POC Glucose 176 H 03/19/20 12:55: Total Bilirubin 1.50 H, Direct Bilirubin 0.38 H, AST 63 H, ALT 79 H, Alkaline Phosphatase 118 H, Total Protein 7.6, Albumin 3.6, Globulin 4.0 03/19/20 18:31: POC Glucose 110 03/19/20 23:37: POC Glucose 115 H 03/20/20 05:44: POC Glucose 101 03/20/20 05:55: WBC 16.6 H, RBC 4.56, Hgb 12.6, Hct 39.6, MCV 86.8, MCH 27.6, MCHC 31.8 L D, RDW Std Deviation 46.6 H, RDW Coeff of [place]rence 14.6, Plt Count 346, MPV 9.7, Immature Gran % (Auto) 0.500, Neut % (Auto) 82.1 H, Lymph % (Auto) 7.9 L, [place] % (Auto) 9.3, Eos % (Auto) 0.1, Baso % (Auto) 0.1, Absolute Neuts (auto) 13.7 H, Absolute Lymphs (auto) 1.32, Nucleated RBC % 0, Differential Comment SCANNED, Diff Path Review December03/20/20 05:55: Sodium 136, Potassium 3.3 L, Chloride 102, Carbon Dioxide 30.0, Anion Gap 4 L, BUN 6 L, Creatinine 0.72, Estim Creat Clear Calc 35.99, Est GFR (MDRD) Af Amer 102, Est GFR (MDRD) Non-Af 85, BUN/Creatinine Ratio 8.4 L, Glucose 99, Calcium 8.3 L, Total Bilirubin 2.40 H, AST 43 H, ALT 62 H, Alkaline Phosphatase 110, Total Protein 7.1, Albumin 3.1 L, Globulin 4.0, Albumin/Globulin Ratio 0.8 L, Lipase 4510 H Current Medications Albuterol Sulfate (Ventolin Aerosols) 2.5 mg INHALATION Q4H PRN PRN PRN Reason: Shortness of Breath/Wheezing Enoxaparin Sodium (Lovenox) 40 mg SC DAILY [facility] Hydralazine HCl (Apresoline Iv) 10 mg IV Q6H PRN PRN PRN Reason: for SBP>160 Lactated Ringer's () 1,000 mls @ 150 mls/hr IV .Q6H40M [facility] Last Admin: 03/20/20 02:35 Dose: 150 mls/hr Documented by: Pantoprazole Sodium 40 mg/ (Sodium Chloride) 110 mls @ 330 mls/hr IV Q12 [facility] Last Infusion: 03/19/20 22:05 Dose: Infused Documented by: Insulin Human Lispro (Humalog Kwikpen (Bkc)) 0 unit SC Q6 [facility]; Protocol Last Admin: 03/20/20 05:49 Dose: Not Given Documented by: Morphine Sulfate () 2 mg IV Q3H PRN PRN PRN Reason: Pain Score 6-10/10 Last Admin: 03/20/20 04:04 Dose: 2 mg Documented by: Ondansetron HCl (Zofran) 4 mg IV Q8H PRN PRN PRN Reason: NAUSEA/VOMITING Last Admin: 03/19/20 23:29 Dose: 4 mg Documented by: Promethazine HCl (Phenergan) 6.25 mg IV Q6H PRN PRN PRN Reason: NAUSEA/VOMITING Last Admin: 03/20/20 04:04 Dose: 6.25 mg Documented by: Sodium Chloride () 10 - 40 ml IV UD PRN PRN Reason: SALINE FLUSH Last Admin: 03/19/20 16:16 Dose: 10 ml Documented by: Medical Necessity - Tobacco Use Smoking Status: Never smoker Assessment/Plan All Active Problems Gallstone pancreatitis (Acute) Gallstones (Acute) Acute pancreatitis (Acute) This is a 74 years old female patient presented with abdominal pain with nausea and vomiting and she was found to have acute pancreatitis and she is being admitted for treatment. #1 acute gallstone pancreatitis: She is on n.p.o., IV fluids, IV morphine, IV antiemetics and IV Protonix. Abdominal pain, nausea and vomiting started to improve but she started having spikes of low-grade fever. WBC is trending up. Lipase is down to 4510. Bilirubin is trending up and it is 2.4 today, liver transaminases are trending down as well as alkaline phosphatase. Patient does have significant epigastric and right upper quadrant tenderness. General surgery on the case, case discussed with Dr. Vee this morning. Plan: Start IV cefepime and IV Flagyl, MRCP, continue other treatments, repeat CBC, CMP and lipase tomorrow morning. #2 elevated LFT: Without evidence of acute cholecystitis on ultrasound. CBD diameter was normal on ultrasound, it was 3.4 mm. Bilirubin is trending up, liver transaminases trending down, alkaline phosphatase back to normal. Plan as above. #3 type 2 diabetes mellitus: N.p.o., IV fluids, Accu-Cheks every 6 hours, insulin sliding scale, hold metformin. #4 hypertension: Blood pressure stable, keep holding Norvasc, irbesartan/HCTZ and metoprolol. Continue IV hydralazine PRN. #5 hypothyroidism: Keep holding levothyroxine. #6 bronchial asthma: Clinically stable, she is on 2 L of oxygen. She is on albuterol PRN, denied worsening shortness of breath. #7 hyperlipidemia: Statins held. #8 GERD: She is on IV Protonix twice daily. #9 DVT prophylaxis: Subcu Lovenox. This note was generated with [employer] dictation software. It may contain incorrect words, spelling, and punctuation that were not noted in checking the note before signing. Inpatient E&M: 95881 Subs Hosp L2
--- NOTE | 2020-03-20 08:20 | PCM.PN.SRG ---
Patient Problems: Active and Suspected Problems Gallstone pancreatitis (Acute) Gallstones (Acute) Acute pancreatitis (Acute) Subjective: Patient still reporting some epigastric pain but no nausea or vomiting overnight. - Physical Exam Vitals/I&O's: Vital Signs Temp Pulse Resp BP Pulse Ox 99.9 F H 91 16 129/67 H 96 03/20/20 02:35 03/20/20 04:05 03/20/20 02:35 03/20/20 02:35 03/20/20 02:35 Oxygen Flow Rate (L/min) 2 Oxygen Delivery Method Nasal Cannula Weight: 190 lb 8 oz Body Mass Index (BMI) 37.2 Intake and Output for Last 24 Hours 03/18/20 03/19/20 03/20/20 23:59 23:59 23:59 Intake Total 2210.0 / 2210.0 895 / 895 Output Total 650 / 650 200 / 200 Balance 1560.0 / 1560.0 695 / 695 General: Alert, Oriented x3 Lungs: Normal air movement Abdomen: Soft, Non-Distended, Tender - Tender in the epigastric region and right upper quadrant Laboratory Results 03/19/20 08:50: WBC 12.2 H, RBC 4.48, Hgb 13.1, Hct 38.0, MCV 84.8, MCH 29.2, MCHC 34.5, RDW Std Deviation 43.3, RDW Coeff of [place] 14.8 H, Plt Count 346, MPV 9.6, Immature Gran % (Auto) 0.300, Neut % (Auto) 86.9 H, Lymph % (Auto) 8.1 L, [place] % (Auto) 4.6, Eos % (Auto) 0.0, Baso % (Auto) 0.1, Absolute Neuts (auto) 10.6 H, Absolute Lymphs (auto) 0.99, Nucleated RBC % 0 03/19/20 08:50: Sodium 133 L, Potassium 3.5, Chloride 98, Carbon Dioxide 30.0, Anion Gap 5, BUN 11, Creatinine 0.87, Estim Creat Clear Calc 41.37, Est GFR (MDRD) Af Amer 81, Est GFR (MDRD) Non-Af 67, BUN/Creatinine Ratio 12.6, Glucose 191 H, Calcium 8.8, Total Bilirubin 1.90 H, AST 74 H, ALT 89 H, Alkaline Phosphatase 128 H, Troponin I < 0.015, Total Protein 8.1, Albumin 3.9, Globulin 4.2, Albumin/Globulin Ratio 0.9, Lipase 99884 H 03/19/20 08:50: Lactic Acid 1.5 03/19/20 10:40: Urine Color Yellow, Urine Clarity Sl. Cloudy, Urine pH 5.0, Ur Specific [place] 1.025, Urine Protein 30 H, Urine Glucose (UA) 50 H, Urine Ketones 5 H, Urine Occult Blood Negative, Urine Nitrite Negative, Urine Bilirubin Negative, Urine Urobilinogen 1 H, Ur Leukocyte Esterase Negative, Urine RBC 0 SEEN, Urine WBC 0 SEEN, Ur Squamous Epith Cells 0-5 SEEN, Urine Bacteria 1+, Urine Mucus 0 SEEN 03/19/20 12:47: POC Glucose 176 H 03/19/20 12:55: Total Bilirubin 1.50 H, Direct Bilirubin 0.38 H, AST 63 H, ALT 79 H, Alkaline Phosphatase 118 H, Total Protein 7.6, Albumin 3.6, Globulin 4.0 03/19/20 18:31: POC Glucose 110 03/19/20 23:37: POC Glucose 115 H 03/20/20 05:44: POC Glucose 101 03/20/20 05:55: WBC 16.6 H, RBC 4.56, Hgb 12.6, Hct 39.6, MCV 86.8, MCH 27.6, MCHC 31.8 L D, RDW Std Deviation 46.6 H, RDW Coeff of [place] 14.6, Plt Count 346, MPV 9.7, Immature Gran % (Auto) 0.500, Neut % (Auto) 82.1 H, Lymph % (Auto) 7.9 L, [place] % (Auto) 9.3, Eos % (Auto) 0.1, Baso % (Auto) 0.1, Absolute Neuts (auto) 13.7 H, Absolute Lymphs (auto) 1.32, Nucleated RBC % 0, Differential Comment SCANNED, Diff Path Review December03/20/20 05:55: Sodium 136, Potassium 3.3 L, Chloride 102, Carbon Dioxide 30.0, Anion Gap 4 L, BUN 6 L, Creatinine 0.72, Estim Creat Clear Calc 35.99, Est GFR (MDRD) Af Amer 102, Est GFR (MDRD) Non-Af 85, BUN/Creatinine Ratio 8.4 L, Glucose 99, Calcium 8.3 L, Total Bilirubin 2.40 H, AST 43 H, ALT 62 H, Alkaline Phosphatase 110, Total Protein 7.1, Albumin 3.1 L, Globulin 4.0, Albumin/Globulin Ratio 0.8 L, Lipase 4510 H Current Medications Albuterol Sulfate (Ventolin Aerosols) 2.5 mg INHALATION Q4H PRN PRN PRN Reason: Shortness of Breath/Wheezing Enoxaparin Sodium (Lovenox) 40 mg SC DAILY [facility] Hydralazine HCl (Apresoline Iv) 10 mg IV Q6H PRN PRN PRN Reason: for SBP>160 Lactated Ringer's () 1,000 mls @ 150 mls/hr IV .Q6H40M [facility] Last Admin: 03/20/20 02:35 Dose: 150 mls/hr Documented by: Pantoprazole Sodium 40 mg/ (Sodium Chloride) 110 mls @ 330 mls/hr IV Q12 [facility] Last Infusion: 03/19/20 22:05 Dose: Infused Documented by: Insulin Human Lispro (Humalog Kwikpen (Bkc)) 0 unit SC Q6 [facility]; Protocol Last Admin: 03/20/20 05:49 Dose: Not Given Documented by: Morphine Sulfate () 2 mg IV Q3H PRN PRN PRN Reason: Pain Score 6-10/10 Last Admin: 03/20/20 04:04 Dose: 2 mg Documented by: Ondansetron HCl (Zofran) 4 mg IV Q8H PRN PRN PRN Reason: NAUSEA/VOMITING Last Admin: 03/19/20 23:29 Dose: 4 mg Documented by: Promethazine HCl (Phenergan) 6.25 mg IV Q6H PRN PRN PRN Reason: NAUSEA/VOMITING Last Admin: 03/20/20 04:04 Dose: 6.25 mg Documented by: Sodium Chloride () 10 - 40 ml IV UD PRN PRN Reason: SALINE FLUSH Last Admin: 03/19/20 16:16 Dose: 10 ml Documented by: Medical Necessity - Tobacco Use Smoking Status: Never smoker Assessment/Plan All Active Problems Gallstone pancreatitis (Acute) Gallstones (Acute) Acute pancreatitis (Acute) 74-year-old female with gallstone pancreatitis 1. The patient's lipase is improving. She is still having some epigastric pain but does not believe it has worsened. Patient did have some low-grade fevers overnight. Her white count is elevated this morning as well. I am unsure if this is due to the inflammation or if she has some element of cholangitis. I would recommend starting antibiotics. The patient's AST and ALT and alkaline phosphatase have decreased. Her bilirubin has slightly increased. The bilirubin is usually the last liver enzyme to correct. I believe she is not fully obstructed. I would recommend performing MRCP instead of ERCP today to ensure that there is no obstruction or element of acute cholecystitis. Otherwise I would plan for waiting for the pancreatitis to resolve and then performing a laparoscopic cholecystectomy with cholangiogram. Trevon Vee MD Pager: [facility] [address] [place] [address] Office:
--- NOTE | 2020-03-20 08:22 | MRI_ITS ---
STUDY: MR MRCP WITHOUT CONTRAST REASON FOR EXAM: Female, 74 years old. acute gallstones, pancreatitis, ruq pain TECHNIQUE: Standard MRCP technique was utilized. COMPARISON: None. FINDINGS: Gall Bladder: Small stones in the dependent portion the gallbladder. Cystic duct: Normal with no demonstrated fixed filling defect. Intrahepatic ducts: Normal visualized intrahepatic ducts with no demonstrated fixed filling defect, dilation or stricture. Common hepatic duct: Normal with no demonstrated fixed filling defect, dilation or stricture. Common bile duct: Normal with no demonstrated fixed filling defect, dilation or stricture. Pancreatic duct: Normal with no demonstrated fixed filling defect, dilation or stricture. MRI/MRCP Abdomen without Contrast IMPRESSION: Cholelithiasis. No MRCP evidence of choledocholithiasis. Electronically Signed: Artemio Lares MD at 10:47 EDT Tel , Service support ,
[2020-03-20] MEDS: 0.9% Normal Saline 1,000 ML 125 ML IV ×2 (10:00→18:09)
[2020-03-20] MEDS: Potassium Chloride 10mEq/100mL 10 MEQ/100 ML IV.SOLN. 100 MEQ IV BOLUS ×2 (10:01→12:38)
--- NOTE | 2020-03-20 10:45 | CASEMGMT ---
RN LISA Face to Face with patient for initial transition planning/care coordination assessment. RN CM introduced self and role at [facility]. Patient lying in bed, alert and oriented. Patient willing to participate in assessment and is able to answer all questions appropriately. Care providers, pharmacy, and demographics verified. Patient wishes to discharge home, denies need for home health at this time. Patient states she has no further needs or concerns at this time. CM to follow for discharge planning needs that may arise. PCP: Victoriano Specialists: Theresa senior treasury consultant Preferred Pharmacy: [facility] Insurance: [employer] [facility] Prescription Benefit: yes Living Will/HPOA: none LNOK: Living Arrangements: Patient lives in a 1 story home with bed and bath on the main level. 3 steps and railing to enter the home. Patient states she is independent at home. Transportation: self, DME/HHC: Paitent states she has shower chair, cane, walker, grab bars at home. No previous HHC Disposition Plan: Patient to discharge home with family support and follow-up plans in place. Pamela VERMA, RN, CM
[2020-03-20] MEDS: Enoxaparin 40 MG/0.4 ML Syringe SC (11:04)
[2020-03-20 12:11] LABS: Bedside Glucose 101 mg/dL (70-110)
[2020-03-20] MEDS: metroNIDAZOLE 500 MG/100 ML BAG 100 MG IV ×2 (13:16→22:33)
[2020-03-20] MEDS: 0.9% Saline Lock 10 ML Syringe IV (14:14)
[2020-03-20 16:40] LABS: Bedside Glucose 90 mg/dL (70-110)
--- NOTE | 2020-03-20 18:17 | NURSING ---
PSN called and notified of covid test order, also notified that as pt is asymptomatic and presurgical test will need to be sent out.
[2020-03-21] VITALS (21 sets, daily range): BP systolic 109–151; BP diastolic 51–90; PULSE 80–106; RESP 16–18; TEMP 36.6–37.7; O2SAT 85–100; BMI 37.2
[2020-03-21 00:05] LABS: Bedside Glucose 107 mg/dL (70-110)
[2020-03-21] MEDS: Morphine 2 MG/ML Syringe IV ×5 (00:07→23:31)
[2020-03-21] MEDS: 0.9% Normal Saline 1,000 ML 125 ML IV ×3 (03:59→16:24)
[2020-03-21] MEDS: Ondansetron 4 MG/2 ML Vial IV (04:00)
[2020-03-21] MEDS: metroNIDAZOLE 500 MG/100 ML BAG 100 MG IV ×3 (04:42→21:55)
[2020-03-21 05:51] LABS: Bedside Glucose 101 mg/dL (70-110)
[2020-03-21 06:13] LABS: Absolute Lymphocyte Count 0.83 X10^3/uL (0.83-4.51); Absolute Neutrophil Count 16.6 X10^3/uL (2.0-7.7); Basophil# 0.03 X10^3/uL; Basophil% 0.2 % (0-1); Eosinophil# 0.02 X10^3/uL; Eosinophils% 0.1 % (0-5); Hematocrit 36.3 % (37-47); Hemoglobin 11.5 g/dL (12.0-15.0); Lymphocyte # 0.83 X10^3/ul (4.0); Lymphocyte % 4.4 % (19-41); Mean Corp Hgb Conc 31.7 g/dL (32-36); Mean Corpuscular Volume 88.3 fL (81-99); Mean Platelet Vol. 9.9 fl (6.2-12.0); Monocyte# 1.32 X10^3/uL; NRBC Flagged by Analyzer 0 % (0-5); Neutrophil # 16.58 X10^3/uL (2.7-7.7); Neutrophil % 87.5 % (47-70); Platelet Count 285 K/mm3 (150-450); RBC Distribution Width CV 14.5 % (11.6-14.6); RBC Distribution Width SD 46.7 fl (35.1-43.9); Red Blood Count 4.11 M/mm3 (4.2-5.4); White Blood Count 18.9 K/mm3 (4.4-11.0)
[2020-03-21 06:39] LABS: ALB/GLOB Ratio 0.7 RATIO (0.9-2.4); AST(SGOT) 94 U/L (15-37); Alanine Aminotransfer ALT/SGPT 92 U/L (13-56); Albumin, Serum 2.7 g/dL (3.2-5.0); Alkaline Phosphatase 209 U/L (45-117); Anion Gap 7 (5-15); BUN 7 mg/dL (7-18); BUN/Creat Ratio 12.8 RATIO (10-20); Calcium,Total 7.9 mg/dL (8.5-10.1); Chloride 105 mmol/L (98-107); Creatinine, Serum 0.55 mg/dL (0.55-1.02); EST Glomerular Filtration Rate 115 mL/min (>60); Est Glom Filt Rate - Afr Amer 140 mL/min (>60); Estimated Creatinine Clearance 35.99 ml/min; Globulin 3.9 g/dL (2.2-4.2); Glucose 115 mg/dL (74-106); Lipase 2142 U/L (73-393); Potassium 3.6 mmol/L (3.5-5.1); Protein, Total 6.6 g/dL (6.4-8.2); Sodium Level 136 mmol/L (136-145)
[2020-03-21] MEDS: proMETHazine 25 MG/ML Syringe 6.25 MG IV (07:31)
--- NOTE | 2020-03-21 07:35 | PN.SURG_ITS ---
Patient Problems: Active and Suspected Problems Gallstone pancreatitis (Acute) Gallstones (Acute) Acute pancreatitis (Acute) Subjective: Patient is having worsening pain today and she has been having nausea and vomiting this morning - Physical Exam Vitals/I&O's: Vital Signs Temp Pulse Resp BP Pulse Ox 99.4 F H 100 18 126/63 H 96 03/21/20 04:30 03/21/20 04:30 03/21/20 04:30 03/21/20 04:30 03/21/20 04:30 Oxygen Flow Rate (L/min) 2 Oxygen Delivery Method Nasal Cannula Weight: 190 lb 7.67 oz Body Mass Index (BMI) 37.2 Intake and Output for Last 24 Hours 03/19/20 03/20/20 03/21/20 23:59 23:59 23:59 Intake Total 2210.0 / 2210.0 3615 / 3615 1100 / 1100 Output Total 650 / 650 500 / 800 500 / 500 Balance 1560.0 / 1560.0 3115 / 2815 600 / 600 General: Alert, Oriented x3 Lungs: Normal air movement Abdomen: Soft, Non-Distended, Tender - Tender in the epigastric region Laboratory Results 03/20/20 12:06: POC Glucose 101 03/20/20 16:36: POC Glucose 90 03/21/20 00:03: POC Glucose 107 03/21/20 05:47: POC Glucose 101 03/21/20 05:58: WBC 18.9 H, RBC 4.11 L, Hgb 11.5 L, Hct 36.3 L, MCV 88.3, MCH 28.0, MCHC 31.7 L, RDW Std Deviation 46.7 H, RDW Coeff of Clarence 14.5, Plt Count 285, MPV 9.9, Immature Gran % (Auto) 0.800, Neut % (Auto) 87.5 H, Lymph % (Auto) 4.4 L, [place] % (Auto) 7.0, Eos % (Auto) 0.1, Baso % (Auto) 0.2, Absolute Neuts (auto) 16.6 H, Absolute Lymphs (auto) 0.83, Nucleated RBC % 0 03/21/20 05:58: Sodium 136, Potassium 3.6, Chloride 105, Carbon Dioxide 24.0, Anion Gap 7, BUN 7, Creatinine 0.55, Estim Creat Clear Calc 35.99, Est GFR (MDRD) Af Amer 140, Est GFR (MDRD) Non-Af 115, BUN/Creatinine Ratio 12.8, Glucose 115 H, Calcium 7.9 L, Total Bilirubin 4.70 H, AST 94 H, ALT 92 H, Alkaline Phosphatase 209 H, Total Protein 6.6, Albumin 2.7 L, Globulin 3.9, Albumin/Globulin Ratio 0.7 L, Lipase 2142 H Current Medications Albuterol Sulfate (Ventolin Aerosols) 2.5 mg INHALATION Q4H PRN PRN PRN Reason: Shortness of Breath/Wheezing Enoxaparin Sodium (Lovenox) 40 mg SC DAILY REPLACED BY [facility] Last Admin: 03/20/20 11:04 Dose: 40 mg Documented by: Hydralazine HCl (Apresoline Iv) 10 mg IV Q6H PRN PRN PRN Reason: for SBP>160 Pantoprazole Sodium 40 mg/ (Sodium Chloride) 110 mls @ 330 mls/hr IV Q12 REPLACED BY [facility] Last Infusion: 03/20/20 22:34 Dose: Infused Documented by: Cefepime HCl 1 gm/ Sodium (Chloride) 50 mls @ 100 mls/hr IV Q12 REPLACED BY [facility] Last Infusion: 03/20/20 20:58 Dose: Infused Documented by: Metronidazole (Flagyl) 500 mg in 100 mls @ 100 mls/hr IV Q8 [facility] Last Infusion: 03/21/20 05:52 Dose: Infused Documented by: Sodium Chloride () 1,000 mls @ 125 mls/hr IV .Q8H [facility] Last Admin: 03/21/20 03:59 Dose: 125 mls/hr Documented by: Sodium Chloride () 250 mls @ 15 mls/hr IV .[id number] PRN PRN Reason: Saline Flush Last Admin: 03/20/20 11:16 Dose: 15 mls/hr Documented by: Sodium Chloride () 250 mls @ 15 mls/hr IV .[id number] PRN PRN Reason: Additional IVPB Infusion Insulin Human Lispro (Humalog Kwikpen (Bkc)) 0 unit SC Q6 REPLACED BY [facility]; Protocol Last Admin: 03/21/20 05:51 Dose: Not Given Documented by: Morphine Sulfate () 2 mg IV Q3H PRN PRN PRN Reason: Pain Score 6-10/10 Last Admin: 03/21/20 04:42 Dose: 2 mg Documented by: Ondansetron HCl (Zofran) 4 mg IV Q8H PRN PRN PRN Reason: NAUSEA/VOMITING Last Admin: 03/21/20 04:00 Dose: 4 mg Documented by: Promethazine HCl (Phenergan) 6.25 mg IV Q6H PRN PRN PRN Reason: NAUSEA/VOMITING Last Admin: 03/21/20 07:31 Dose: 6.25 mg Documented by: Sodium Chloride () 10 - 40 ml IV UD PRN PRN Reason: SALINE FLUSH Last Admin: 03/20/20 14:14 Dose: 10 ml Documented by: Medical Necessity - Tobacco Use Smoking Status: Never smoker Assessment/Plan All Active Problems Gallstone pancreatitis (Acute) Gallstones (Acute) Acute pancreatitis (Acute) 74-year-old female with gallstone pancreatitis and obstructive jaundice 1. The patient had MRCP yesterday which did not show any filling defects however overnight she still had a low-grade fever and she is having increased pain. Her LFTs have increased again today. I am unsure if the filling defect was not noticed on MRCP yesterday or if she had another stone drop into her common bile duct. Either way she seems to be worsening instead of improving and I will take her today for ERCP and possible stent placement. 2. I discussed ERCP in detail with the patient. I discussed the risks including not limited to bleeding, infection, perforation of the bile duct or bowel, worsening of pancreatitis. The patient understands the risks and is well to proceed with ERCP this morning. I have held morning Enablonnox and she has been n.p.o. Trevon Vee MD Pager: [facility] [address] [place] [address], [address] [place] [address] Office:
--- NOTE | 2020-03-21 08:19 | PN_ITS ---
Patient Problems: Active and Suspected Problems Ascending cholangitis (Suspected) Gallstone pancreatitis (Acute) Subjective: Chief complaint: Follow-up after admission for acute gallstone pancreatitis and suspected acute cholangitis. Patient seen and examined. No acute events overnight. This morning, she reported worsening abdominal pain mainly onto the right upper quadrant. She complained of nausea and vomiting as well. She had a spike of fever yesterday evening, still having spikes of low-grade fever. She is tachycardic, blood pressure is maintained, pulse ox is 96% on 2 L. - Physical Exam Vitals/I&O's: Vital Signs Temp Pulse Resp BP Pulse Ox 97.9 F 106 H 18 151/79 H 96 03/21/20 08:03 03/21/20 08:03 03/21/20 08:03 03/21/20 08:03 03/21/20 08:03 Oxygen Flow Rate (L/min) 2 Oxygen Delivery Method Nasal Cannula Weight: 190 lb 7.67 oz Body Mass Index (BMI) 37.2 Intake and Output for Last 24 Hours 03/19/20 03/20/20 03/21/20 23:59 23:59 23:59 Intake Total 2210.0 / 2210.0 3615 / 3615 1100 / 1100 Output Total 650 / 650 500 / 800 500 / 500 Balance 1560.0 / 1560.0 3115 / 2815 600 / 600 General: Alert, Oriented x3, Cooperative, - - She is in mild distress because of abdominal pain. HEENT: Atraumatic, PERRLA, EOMI, Normocephalic Oral: Moist Mucosa, No Gingival or Mucosal Lesions/ Ulcerations Neck: Supple, No JVD, Negative Carotid Bruits, Trachea Midline, Thyroid Normal Size and Texture Lungs: Clear to auscultation, Normal air movement, No rhonchi, No wheeze, No rales, Diminished Cardiovascular: Regular rate, Regular Rhythm, Normal S1, Normal S2, PMI Normal, Tachycardic Abdomen: Bowel Sounds Present, Soft, Non-Distended, No Hepato-splenomegaly, Obese, Tender - Right upper quadrant tenderness, mild epigastric tenderness. No guarding or rigidity. Extremities: No clubbing, No cyanosis, No edema Skin: No rashes, No breakdown Lymphatic: No Cervical, Supraclavicular, or Inguinal Adenopathy Neurological: Cranial nerves II-XII grossly intact, Neuro grossly intact Psych/Mental Status: Normal Affect, Appropriate, Alert and oriented to time, place, person, mood and affect Laboratory Results 03/20/20 12:06: POC Glucose 101 03/20/20 16:36: POC Glucose 90 03/21/20 00:03: POC Glucose 107 03/21/20 05:47: POC Glucose 101 03/21/20 05:58: WBC 18.9 H, RBC 4.11 L, Hgb 11.5 L, Hct 36.3 L, MCV 88.3, MCH 28.0, MCHC 31.7 L, RDW Std Deviation 46.7 H, RDW Coeff of Clarence 14.5, Plt Count 285, MPV 9.9, Immature Gran % (Auto) 0.800, Neut % (Auto) 87.5 H, Lymph % (Auto) 4.4 L, [place] % (Auto) 7.0, Eos % (Auto) 0.1, Baso % (Auto) 0.2, Absolute Neuts (auto) 16.6 H, Absolute Lymphs (auto) 0.83, Nucleated RBC % 0 03/21/20 05:58: Sodium 136, Potassium 3.6, Chloride 105, Carbon Dioxide 24.0, Anion Gap 7, BUN 7, Creatinine 0.55, Estim Creat Clear Calc 35.99, Est GFR (MDRD) Af Amer 140, Est GFR (MDRD) Non-Af 115, BUN/Creatinine Ratio 12.8, Glucose 115 H, Calcium 7.9 L, Total Bilirubin 4.70 H, AST 94 H, ALT 92 H, Alkaline Phosphatase 209 H, Total Protein 6.6, Albumin 2.7 L, Globulin 3.9, Al bumin/Globulin Ratio 0.7 L, Lipase 2142 H Clinical Impression(s) from Imaging Studies MRCP 03/20/20 08:22 IMPRESSION: Cholelithiasis. No MRCP evidence of choledocholithiasis. Electronically Signed: Artemio Lares MD at 10:47 EDT Tel , Service support , Current Medications Albuterol Sulfate (Ventolin Aerosols) 2.5 mg INHALATION Q4H PRN PRN PRN Reason: Shortness of Breath/Wheezing Enoxaparin Sodium (Lovenox) 40 mg SC DAILY [facility] Last Admin: 03/20/20 11:04 Dose: 40 mg Documented by: Hydralazine HCl (Apresoline Iv) 10 mg IV Q6H PRN PRN PRN Reason: for SBP>160 Pantoprazole Sodium 40 mg/ (Sodium Chloride) 110 mls @ 330 mls/hr IV Q12 [facility] Last Infusion: 03/20/20 22:34 Dose: Infused Documented by: Cefepime HCl 1 gm/ Sodium (Chloride) 50 mls @ 100 mls/hr IV Q12 [facility] Last Infusion: 03/20/20 20:58 Dose: Infused Documented by: Metronidazole (Flagyl) 500 mg in 100 mls @ 100 mls/hr IV Q8 [facility] Last Infusion: 03/21/20 05:52 Dose: Infused Documented by: Sodium Chloride () 1,000 mls @ 125 mls/hr IV .Q8H [facility] Last Admin: 03/21/20 03:59 Dose: 125 mls/hr Documented by: Sodium Chloride () 250 mls @ 15 mls/hr IV .[id number] PRN PRN Reason: Saline Flush Last Admin: 03/20/20 11:16 Dose: 15 mls/hr Documented by: Sodium Chloride () 250 mls @ 15 mls/hr IV .[id number] PRN PRN Reason: Additional IVPB Infusion Insulin Human Lispro (Humalog Kwikpen (Bkc)) 0 unit SC Q6 [facility]; Protocol Last Admin: 03/21/20 05:51 Dose: Not Given Documented by: Morphine Sulfate () 2 mg IV Q3H PRN PRN PRN Reason: Pain Score 6-10/10 Last Admin: 03/21/20 04:42 Dose: 2 mg Documented by: Ondansetron HCl (Zofran) 4 mg IV Q8H PRN PRN PRN Reason: NAUSEA/VOMITING Last Admin: 03/21/20 04:00 Dose: 4 mg Documented by: Promethazine HCl (Phenergan) 6.25 mg IV Q6H PRN PRN PRN Reason: NAUSEA/VOMITING Last Admin: 03/21/20 07:31 Dose: 6.25 mg Documented by: Sodium Chloride () 10 - 40 ml IV UD PRN PRN Reason: SALINE FLUSH Last Admin: 03/20/20 14:14 Dose: 10 ml Documented by: Medical Necessity - Tobacco Use Smoking Status: Never smoker Assessment/Plan All Active Problems Gallstone pancreatitis (Acute) This is a 74 years old female patient presented with abdominal pain with nausea and vomiting and she was found to have acute pancreatitis and she is being admitted for treatment. #1 acute gallstone pancreatitis/suspected acute cholangitis: Remains on n.p.o., IV fluids, IV morphine, IV antiemetics and IV Protonix. Started on IV cefepime and IV Flagyl yesterday for possible acute cholangitis. She is having spikes of fever, leukocytosis is worsening, symptoms are worsening as well with abdominal pain and nausea and vomiting. Total bilirubin as well as liver transaminases and alkaline phosphatase are trending up. Lipase is trending down, it is down to 2142. Patient slightly tachycardic, blood pressure is maintained, pulse ox is 96% on 2 L. General surgery on the case. Plan: ERCP today, repeat CBC, CMP and lipase tomorrow morning, continue IV antibiotics. #2 elevated LFT: With suspected acute cholangitis. No evidence of acute cholecystitis on ultrasound. CBD diameter was normal on ultrasound, it was 3.4 mm. Bilirubin is trending up, liver transaminases and alkaline phosphatase also trending up today. MRCP showed no evidence of choledocholithiasis. Plan as above. #3 type 2 diabetes mellitus: Blood sugar stable, continue Accu-Cheks every 6 hours, insulin sliding scale, keep holding metformin. #4 hypertension: Blood pressure stable, keep holding Norvasc, irbesartan/HCTZ and metoprolol. Continue IV hydralazine PRN. #5 hypothyroidism: Keep holding levothyroxine. #6 bronchial asthma: Clinically stable, she is on 2 L of oxygen. She is on albuterol PRN, denied worsening shortness of breath. #7 hyperlipidemia: Statins held. #8 GERD: She is on IV Protonix twice daily. #9 DVT prophylaxis: Subcu Lovenox. This note was generated with Rivalfoxation software. It may contain incorrect words, spelling, and punctuation that were not noted in checking the note before signing. Inpatient E&M: 80116 [facility] L3
--- NOTE | 2020-03-21 09:30 | GALL_PTH ---
PATIENT: DL PALOMINO LOC: MS3 U#:[id number] AGE/SX: 74/F ROOM: WI320 RE03/19/[address]: Dr. Cade Mariano MD : 1945 BED: 1 DIS: 03/30/2020 SPEC #: [id number] RECD: 03/24/20 14:01 STATUS: FREDA ARTI #: [id number] KHANH: 03/21/20 09:[address]: Trevon Vee DEPT: SURGICAL PATHOLOGY RECD BY: Niles Chen ENTERED: 03/25/20 07:58 SP TYPE: JOHNNIE DE LA CRUZ DR: MD Dr. Any Navarro DO Dr. Liza D Talampas, MD Tissues: Gallbladder, NOS Procedures: Surgery Specimen Level III HEADER OPERATION: ERCP PRE-OP DIAGNOSIS: Gallstone pancreatitis TISSUE SUBMITTED: Gallbladder MICROSCOPIC DIAGNOSIS Gallbladder, cholecystectomy: Chronic cholecystitis and cholelithiasis. Moderate to marked atypia favor reactive epithelial changes. Focal dysplastic changes CRISTOPHER:jen 03/27/20 COMMENT Case has been reviewed in consultation with Dr. Nina who concurs with the above diagnosis. IDC:AM MICROSCOPIC DESCRIPTION Slides are reviewed. GROSS DESCRIPTION Received is one container labeled with the patient's name and designated gallbladder. The specimen consists of a gallbladder measuring 7.5 cm in length and up to 3 cm in diameter. The external surface is pink-quinn, smooth and glistening for the most part. Focally it is granular, hemorrhagic and contains cautery artifact. The gallbladder contains green-yellow mucoid bile and multiple black stones measuring in aggregate 2 x 2 x 0.2 cm and <0.1 to 0.1 cm in greatest dimension. The mucosa is bile-stained and without any mass lesions. The gallbladder wall measures up to 0.5 cm in thickness. Bearing Maker sections from the gallbladder and the cystic duct are submitted in one cassette. / CRISTOPHER:jen 03/25/20 More sections are submitted in three more cassettes. / CRISTOPHER:jen 03/26/20 TC:5 CPT: 89902
--- NOTE | 2020-03-21 09:41 | RAD_ITS ---
STUDY: ERCP. REASON FOR EXAM: Female, 74 years old. ERCP FOR PAIN, CHOLELITHESIS, AND PANCREATITIS -- 44.29 mGy DOSE FLUOROSCOPY TIME (if supplied): ( 84.7 seconds. ) minutes/seconds. A single image was submitted. TECHNIQUE: An ERCP was performed by the surgeon. COMPARISON: None. FINDINGS: A nondiagnostic image was submitted for interpretation. RAD/ERCP Biliary Only IMPRESSION: Nondiagnostic image submitted for interpretation. Electronically Signed: Luis Lynne, at 15:35 EDT , Service support ,
--- NOTE | 2020-03-21 10:25 | OP.ERCP_ITS ---
Patient Name: Carmen Parsons Procedure Date: 03/21/2020 9:10 AM Date of : 1945 Age: 74 Procedure: ERCP Indications: Elevated liver enzymes Providers: Trevon Vee MD Medicines: General Anesthesia Patient Profile: This is a 74 year old female. Refer to note in patient chart for documentation of history and physical. Complications: No immediate complications. Estimated blood loss: Minimal. Procedure: Pre-Anesthesia Assessment: - Prior to the procedure, a History and Physical was performed, and patient medications and allergies were reviewed. The patient's tolerance of previous anesthesia was also reviewed. The risks and benefits of the procedure and the sedation options and risks were discussed with the patient. All questions were answered, and informed consent was obtained. Prior Anticoagulants: The patient has taken no previous anticoagulant or antiplatelet agents. After reviewing the risks and benefits, the patient was deemed in satisfactory condition to undergo the procedure. After obtaining informed consent, the scope was passed under direct vision. Throughout the procedure, the patient's blood pressure, pulse, and oxygen saturations were monitored continuously. The duodenoscope was introduced through the mouth, and advanced to the duodenum and used to inject contrast into the bile duct. The ERCP was accomplished without difficulty. The patient tolerated the procedure well. Scope In: 9:45:23 AM Scope Out: 10:09:51 AM Total Procedure Duration Time 0 hours 24 minutes 28 seconds Findings: The major papilla was bulging. A 0.035 inch x 260 cm straight Dreamwire was passed into the biliary tree. The sphincterotome was passed over the guidewire and the bile duct was then deeply cannulated. Contrast was injected. Biliary sphincterotomy was made with a monofilament sphincterotome using ERBE electrocautery. The sphincterotomy oozed blood. The biliary tree was swept with a 12 mm balloon starting at the bifurcation. Sludge was swept from the duct. Impression: - The major papilla appeared to be bulging. - A biliary sphincterotomy was performed. - The biliary tree was swept and sludge was found. Recommendation: - NPO. - [facility]. Procedure Code(s): --- Professional --- 42544, Endoscopic retrograde cholangiopancreatography (ERCP); with removal of calculi/debris from biliary/pancreatic duct(s) 35573, 51, Endoscopic retrograde cholangiopancreatography (ERCP); with sphincterotomy/papillotomy Diagnosis Code(s): --- Professional --- R74.8, Abnormal levels of other serum enzymes K83.8, Other specified diseases of biliary tract CPT copyright 2017 [employer]. All rights reserved. The codes documented in this report are preliminary and upon air cargo ground crew supervisor review may be revised to meet current compliance requirements. Trevon Vee MD 03/21/2020 10:24:38 AM This report has been signed electronically. Number of Addenda: 0 Note Initiated On: 03/21/2020 9:10 AM
--- NOTE | 2020-03-21 10:25 | OP.CCLET_ITS ---
03/21/2020 Anabella Pastrana [address] [place] [address] Re : ERCP procedure for Carmen Parsons Dear Dr. Pastrana This procedure was performed on Saturday, March 21, 2020. My impressions and recommendations are as follows: Impressions : - The major papilla appeared to be bulging. - A biliary sphincterotomy was performed. - The biliary tree was swept and sludge was found. Recommendations : - NPO. - [facility]. My findings are described in the full procedure note, which is enclosed. If I can be of further assistance, please feel free to contact me at Doctor phone number(s): , Work: . Sincerely, Trevon Vee MD 03/21/2020 10:24:38 AM This report has been signed electronically.
[2020-03-21] MEDS: Levothyroxine 75 MCG Tablet PO (10:45)
[2020-03-21 10:55] LABS: Bedside Glucose 115 mg/dL (70-110)
[2020-03-21] MEDS: amLODIPine 10 MG Tablet PO (11:05)
[2020-03-21] MEDS: Metoprolol Tartrate 25 MG Tablet PO (11:05)
[2020-03-21 12:11] LABS: Pathologist Review Reviewed
[2020-03-21 12:21] LABS: Bedside Glucose 112 mg/dL (70-110)
--- NOTE | 2020-03-21 12:32 | NURSING ---
Dr. Vee wants pt to continue to be NPO today only with sips with meds.
[2020-03-21] MEDS: 0.9% Saline Lock 10 ML Syringe IV ×3 (16:23→23:32)
[2020-03-21 17:21] LABS: Bedside Glucose 123 mg/dL (70-110)
[2020-03-21 23:45] LABS: Bedside Glucose 94 mg/dL (70-110)
[2020-03-22] VITALS (13 sets, daily range): BP systolic 111–157; BP diastolic 69–90; PULSE 88–100; RESP 18–20; TEMP 36.7–37.1; O2SAT 94–98; BMI 37.2
[2020-03-22] MEDS: 0.9% Normal Saline 1,000 ML 125 ML IV (00:40)
[2020-03-22] MEDS: metroNIDAZOLE 500 MG/100 ML BAG 100 MG IV ×3 (05:13→21:10)
--- NOTE | 2020-03-22 06:26 | PN.SURG_ITS ---
Patient Problems: Active and Suspected Problems Ascending cholangitis (Suspected) Gallstone pancreatitis (Acute) Subjective: Patient states that her abdomen is feeling much improved. She pokes around on it demonstrating minimal tenderness. She also states that she was so parched that she snuck some water. She tolerated that well. She states that she does have trouble breathing. She cannot get a deep breath. She admits that she has not been ambulating in the otto. She denies any blood per rectum - Physical Exam Vitals/I&O's: Vital Signs Temp Pulse Resp BP Pulse Ox 98.7 F 96 18 125/90 H 94 03/22/20 05:00 03/22/20 06:00 03/22/20 05:00 03/22/20 05:00 03/22/20 05:00 Oxygen Flow Rate (L/min) 2 Oxygen Delivery Method Nasal Cannula Weight: 190 lb 7.67 oz Body Mass Index (BMI) 37.2 Finger Stick Blood Glucose 115 Intake and Output for Last 24 Hours 03/20/20 03/21/20 03/22/20 23:59 23:59 23:59 Intake Total 3615 / 3615 3420.25 / 3620.25 1300 / 1300 Output Total 500 / 800 975 / 1175 700 / 700 Balance 3115 / 2815 2445.25 / 2445.25 600 / 600 General: Alert, Oriented x3, Cooperative, No apparent distress Lungs: - - Diminished excursion, diminished breath sounds in the bases, Abdomen: Soft, Non Tender, Hypoactive Bowel Sounds Laboratory Results 03/20/20 05:55: Diff Path Review Reviewed 03/21/20 05:58: Sodium 136, Potassium 3.6, Chloride 105, Carbon Dioxide 24.0, Anion Gap 7, BUN 7, Creatinine 0.55, Estim Creat Clear Calc 35.99, Est GFR (MDRD) Af Amer 140, Est GFR (MDRD) Non-Af 115, BUN/Creatinine Ratio 12.8, Glucose 115 H, Calcium 7.9 L, Total Bilirubin 4.70 H, AST 94 H, ALT 92 H, Alkaline Phosphatase 209 H, Total Protein 6.6, Albumin 2.7 L, Globulin 3.9, Albumin/Globulin Ratio 0.7 L, Lipase 2142 H 03/21/20 10:51: POC Glucose 115 H 03/21/20 12:16: POC Glucose 112 H 03/21/20 17:10: POC Glucose 123 H 03/21/20 23:38: POC Glucose 94 Current Medications Albuterol Sulfate (Ventolin Aerosols) 2.5 mg INHALATION Q4H PRN PRN PRN Reason: Shortness of Breath/Wheezing Enoxaparin Sodium (Lovenox) 40 mg SC DAILY [facility] Last Admin: 03/20/20 11:04 Dose: 40 mg Documented by: Hydralazine HCl (Apresoline Iv) 10 mg IV Q6H PRN PRN PRN Reason: for SBP>160 Pantoprazole Sodium 40 mg/ (Sodium Chloride) 110 mls @ 330 mls/hr IV Q12 [facility] Last Infusion: 03/21/20 21:56 Dose: Infused Documented by: Cefepime HCl 1 gm/ Sodium (Chloride) 50 mls @ 100 mls/hr IV Q12 [facility] Last Infusion: 03/21/20 23:44 Dose: Infused Documented by: Metronidazole (Flagyl) 500 mg in 100 mls @ 100 mls/hr IV Q8 [facility] Last Infusion: 03/22/20 06:13 Dose: Infused Documented by: Sodium Chloride () 1,000 mls @ 125 mls/hr IV .Q8H [facility] Last Admin: 03/22/20 00:40 Dose: 125 mls/hr Documented by: Sodium Chloride () 250 mls @ 15 mls/hr IV .[id number] PRN PRN Reason: Saline Flush Last Infusion: 03/21/20 23:35 Dose: 15 mls/hr Documented by: Sodium Chloride () 250 mls @ 15 mls/hr IV .[id number] PRN PRN Reason: Additional IVPB Infusion Insulin Human Lispro (Humalog Kwikpen (Bkc)) 0 unit SC Q6 [facility]; Protocol Last Admin: 03/22/20 06:16 Dose: Not Given Documented by: Morphine Sulfate () 2 mg IV Q3H PRN PRN PRN Reason: Pain Score 6-10/10 Last Admin: 03/21/20 23:31 Dose: 2 mg Documented by: Ondansetron HCl (Zofran) 4 mg IV Q8H PRN PRN PRN Reason: NAUSEA/VOMITING Last Admin: 03/21/20 04:00 Dose: 4 mg Documented by: Promethazine HCl (Phenergan) 6.25 mg IV Q6H PRN PRN PRN Reason: NAUSEA/VOMITING Last Admin: 03/21/20 07:31 Dose: 6.25 mg Documented by: Sodium Chloride () 10 - 40 ml IV UD PRN PRN Reason: SALINE FLUSH Last Admin: 03/21/20 23:32 Dose: 10 ml Documented by: Medical Necessity - Tobacco Use Smoking Status: Never smoker Assessment/Plan All Active Problems Gallstone pancreatitis (Acute) Patient appears to be quite stable. Laboratories pending. I will initiate clear liquids. Tentative plans are for laparoscopic cholecystectomy on March 24, 2020 Patient notes shortness of breath. Likely fluid overloaded, third spaced fluids and significant atelectasis from 5 days of supine posturing. Will check chest x-ray and limit IV fluids Orlando Oconnor M.D., F.A.C.S.
--- NOTE | 2020-03-22 06:41 | RAD_ITS ---
STUDY: X-RAY CHEST REASON FOR EXAM: Female, 74 years old. SOB TECHNIQUE: PA and lateral views of the chest. COMPARISON: None. FINDINGS: Poor inspiration with some bibasilar atelectasis. There is no demonstrated pleural abnormality. Normal size heart. Normal mediastinum and robert. Normal visualized pulmonary arteries. Normal visualized aortic arch and descending thoracic aorta. There is a dextroscoliosis of the thoracic spine. Normal visualized ribs, clavicles, and shoulders. There is no demonstrated abnormality of the visualized soft tissue structures of the upper abdomen. RAD/Chest PA and Lateral IMPRESSION: Poor inspiration with some bibasilar atelectasis Electronically Signed: Artemio Lares MD at 7:58 EDT Tel , Service support ,
[2020-03-22 06:46] LABS: Bedside Glucose 83 mg/dL (70-110)
[2020-03-22 07:05] LABS: Absolute Lymphocyte Count 0.75 X10^3/uL (0.83-4.51); Absolute Neutrophil Count 16.6 X10^3/uL (2.0-7.7); Basophil# 0.04 X10^3/uL; Basophil% 0.2 % (0-1); Eosinophil# 0.02 X10^3/uL; Eosinophils% 0.1 % (0-5); Hematocrit 34.8 % (37-47); Hemoglobin 10.8 g/dL (12.0-15.0); Lymphocyte # 0.75 X10^3/ul (4.0); Mean Corpuscular Hgb 27.6 pg (27.0-32.0); Mean Platelet Vol. 9.9 fl (6.2-12.0); Monocyte# 1.13 X10^3/uL; NRBC Flagged by Analyzer 0 % (0-5); Neutrophil # 16.55 X10^3/uL (2.7-7.7); Neutrophil % 88.1 % (47-70); Platelet Count 295 K/mm3 (150-450); RBC Distribution Width CV 14.8 % (11.6-14.6); RBC Distribution Width SD 47.7 fl (35.1-43.9); Red Blood Count 3.91 M/mm3 (4.2-5.4); White Blood Count 18.8 K/mm3 (4.4-11.0)
[2020-03-22 07:15] LABS: ALB/GLOB Ratio 0.7 RATIO (0.9-2.4); AST(SGOT) 53 U/L (15-37); Alanine Aminotransfer ALT/SGPT 78 U/L (13-56); Albumin, Serum 2.5 g/dL (3.2-5.0); Alkaline Phosphatase 226 U/L (45-117); Anion Gap 5 (5-15); BUN 9 mg/dL (7-18); BUN/Creat Ratio 15.7 RATIO (10-20); Chloride 108 mmol/L (98-107); Creatinine, Serum 0.57 mg/dL (0.55-1.02); EST Glomerular Filtration Rate 109 mL/min (>60); Est Glom Filt Rate - Afr Amer 132 mL/min (>60); Estimated Creatinine Clearance 35.99 ml/min; Globulin 3.8 g/dL (2.2-4.2); Glucose 99 mg/dL (74-106); Lipase 192 U/L (73-393); Potassium 3.5 mmol/L (3.5-5.1); Protein, Total 6.3 g/dL (6.4-8.2); Sodium Level 140 mmol/L (136-145)
--- NOTE | 2020-03-22 08:44 | PN_ITS ---
Patient Problems: Active and Suspected Problems Ascending cholangitis (Suspected) Gallstone pancreatitis (Acute) Subjective: Chief complaint: Follow-up after admission for acute gallstone pancreatitis and suspected ascending cholangitis. Patient seen and examined. No acute events overnight. Abdominal pain significantly improved, denies any more nausea or vomiting. This morning, she complained of shortness of breath. Chest x-ray done and reviewed. Denied fever chills. Maximum temperature overnight was 99.8, heart rate has been around 100, blood pressure stable, pulse ox is 94% on 2 L. - Physical Exam Vitals/I&O's: Vital Signs Temp Pulse Resp BP Pulse Ox 98.7 F 96 18 125/90 H 94 03/22/20 05:00 03/22/20 06:00 03/22/20 05:00 03/22/20 05:00 03/22/20 05:00 Oxygen Flow Rate (L/min) 2 Oxygen Delivery Method Nasal Cannula Weight: 190 lb 7.67 oz Body Mass Index (BMI) 37.2 Finger Stick Blood Glucose 115 Intake and Output for Last 24 Hours 03/20/20 03/21/20 03/22/20 23:59 23:59 23:59 Intake Total 3615 / 3615 3420.25 / 3620.25 1300 / 1300 Output Total 500 / 800 975 / 1175 700 / 700 Balance 3115 / 2815 2445.25 / 2445.25 600 / 600 General: Alert, Oriented x3, Cooperative, - - Minimally short of breath. HEENT: Atraumatic, PERRLA, EOMI, Normocephalic Oral: Moist Mucosa, No Gingival or Mucosal Lesions/ Ulcerations Neck: Supple, No JVD, Negative Carotid Bruits, Trachea Midline, Thyroid Normal Size and Texture Lungs: No rhonchi, No wheeze, Diminished, Rales, - - Decreased breath sounds bilateral, faint basilar crackles. Cardiovascular: Regular rate, Regular Rhythm, Normal S1, Normal S2, PMI Normal Abdomen: Bowel Sounds Present, Soft, Non-Distended, No Hepato-splenomegaly, Tender - Minimal epigastric and right upper quadrant tenderness, no guarding or rigidity. Extremities: No clubbing, No cyanosis, No edema Skin: No rashes, No breakdown Lymphatic: No Cervical, Supraclavicular, or Inguinal Adenopathy Neurological: Cranial nerves II-XII grossly intact, Neuro grossly intact Psych/Mental Status: Normal Affect, Appropriate, Alert and oriented to time, place, person, mood and affect Laboratory Results 03/20/20 05:55: Diff Path Review Reviewed 03/21/20 10:51: POC Glucose 115 H 03/21/20 12:16: POC Glucose 112 H 03/21/20 17:10: POC Glucose 123 H 03/21/20 23:38: POC Glucose 94 03/22/20 06:15: POC Glucose 83 03/22/20 06:47: WBC 18.8 H, RBC 3.91 L, Hgb 10.8 L, Hct 34.8 L, MCV 89.0, MCH 27.6, MCHC 31.0 L, RDW Std Deviation 47.7 H, RDW Coeff of Clarence 14.8 H, Plt Count 295, MPV 9.9, Immature Gran % (Auto) 1.600 H, Neut % (Auto) 88.1 H, Lymph % (Auto) 4.0 L, [place] % (Auto) 6.0, Eos % (Auto) 0.1, Baso % (Auto) 0.2, Absolute Neuts (auto) 16.6 H, Absolute Lymphs (auto) 0.75 L, Nucleated RBC % 0 03/22/20 06:47: Sodium 140, Potassium 3.5, Chloride 108 H, Carbon Dioxide 27.0, Anion Gap 5, BUN 9, Creatinine 0.57, Estim Creat Clear Calc 35.99, Est GFR (MDRD ) Af Amer 132, Est GFR (MDRD) Non-Af 109, BUN/Creatinine Ratio 15.7, Glucose 99, Calcium 8.0 L, Total Bilirubin 2.70 H, AST 53 H, ALT 78 H, Alkaline Phosphatase 226 H, Total Protein 6.3 L, Albumin 2.5 L, Globulin 3.8, Albumin/Globulin Ratio 0.7 L, Lipase 192 Current Medications Albuterol Sulfate (Ventolin Aerosols) 2.5 mg INHALATION Q4H PRN PRN PRN Reason: Shortness of Breath/Wheezing Enoxaparin Sodium (Lovenox) 40 mg SC DAILY [facility] Last Admin: 03/20/20 11:04 Dose: 40 mg Documented by: Hydralazine HCl (Apresoline Iv) 10 mg IV Q6H PRN PRN PRN Reason: for SBP>160 Pantoprazole Sodium 40 mg/ (Sodium Chloride) 110 mls @ 330 mls/hr IV Q12 [facility] Last Infusion: 03/21/20 21:56 Dose: Infused Documented by: Cefepime HCl 1 gm/ Sodium (Chloride) 50 mls @ 100 mls/hr IV Q12 [facility] Last Infusion: 03/21/20 23:44 Dose: Infused Documented by: Metronidazole (Flagyl) 500 mg in 100 mls @ 100 mls/hr IV Q8 [facility] Last Infusion: 03/22/20 06:13 Dose: Infused Documented by: Sodium Chloride () 1,000 mls @ 30 mls/hr IV .[id number] [facility] Last Admin: 03/22/20 00:40 Dose: 125 mls/hr Documented by: Sodium Chloride () 250 mls @ 15 mls/hr IV .[id number] PRN PRN Reason: Saline Flush Last Infusion: 03/21/20 23:35 Dose: 15 mls/hr Documented by: Sodium Chloride () 250 mls @ 15 mls/hr IV .[id number] PRN PRN Reason: Additional IVPB Infusion Insulin Human Lispro (Humalog Kwikpen (Bkc)) 0 unit SC Q6 [facility]; Protocol Last Admin: 03/22/20 06:16 Dose: Not Given Documented by: Morphine Sulfate () 2 mg IV Q3H PRN PRN PRN Reason: Pain Score 6-10/10 Last Admin: 03/21/20 23:31 Dose: 2 mg Documented by: Ondansetron HCl (Zofran) 4 mg IV Q8H PRN PRN PRN Reason: NAUSEA/VOMITING Last Admin: 03/21/20 04:00 Dose: 4 mg Documented by: Promethazine HCl (Phenergan) 6.25 mg IV Q6H PRN PRN PRN Reason: NAUSEA/VOMITING Last Admin: 03/21/20 07:31 Dose: 6.25 mg Documented by: Sodium Chloride () 10 - 40 ml IV UD PRN PRN Reason: SALINE FLUSH Last Admin: 03/21/20 23:32 Dose: 10 ml Documented by: Medical Necessity - Tobacco Use Smoking Status: Never smoker Assessment/Plan All Active Problems Gallstone pancreatitis (Acute) This is a 74 years old female patient presented with abdominal pain with nausea and vomiting and she was found to have acute pancreatitis and she is being admitted for treatment. #1 acute gallstone pancreatitis/suspected acute cholangitis: She is on IV fluids, IV antibiotics, IV antiemetics, IV Protonix. Status post ERCP that revealed bulging major papilla, biliary sludge, biliary sphincterotomy was performed. She was started on clear liquids this morning. Fever is trending down, WBC remained almost the same, other vital signs are stable. Lipase is back to normal. Bilirubin is trending down as well as liver transaminases. Patient had no more abdominal pain, no nausea or vomiting, she is tolerating clear liquids. General surgery on the case. Plan: Continue clear liquids, repeat CBC and CMP after tomorrow morning, plan for laparoscopic cholecystectomy on Tuesday. #2 elevated LFT: With suspected acute cholangitis. Status post ERCP as mentioned above. CBD diameter was normal on ultrasound, it was 3.4 mm. Total bilirubin as well as liver transaminases are trending down. MRCP showed no evidence of choledocholithiasis. Plan as above. #3 type 2 diabetes mellitus: Blood sugar stable, continue Accu-Cheks every 6 hours, insulin sliding scale, keep holding metformin. #4 hypertension: Blood pressure stable, keep holding Norvasc, irbesartan/HCTZ and metoprolol. Continue IV hydralazine PRN. #5 hypothyroidism: Keep holding levothyroxine. #6 bronchial asthma: Clinically stable, she is on 2 L of oxygen. She is on albuterol PRN. Chest x-ray reviewed, revealed poor aeration of the right lung, treated patient. Her shortness of breath likely due to volume overload. IV fluids decreased down to 30 cc/h, encouraged ambulation and incentive spirometer. #7 hyperlipidemia: Statins held. #8 GERD: Continue IV Protonix twice daily. #9 DVT prophylaxis: Subcu Lovenox. This note was generated with [employer] dictation software. It may contain incorrect words, spelling, and punctuation that were not noted in checking the note before signing. Inpatient E&M: 21120 Subs Hosp L2
[2020-03-22] MEDS: Enoxaparin 40 MG/0.4 ML Syringe SC (10:22)
[2020-03-22 12:01] LABS: Bedside Glucose 165 mg/dL (70-110)
[2020-03-22] MEDS: Insulin Lispro 100 UNIT/ML INSULN.PEN SC (12:04)
[2020-03-22] MEDS: Furosemide 20 MG/2 ML VIAL IV (12:04)
[2020-03-22] MEDS: Morphine 2 MG/ML Syringe IV ×2 (14:24→19:33)
[2020-03-22] MEDS: 0.9% Saline Lock 10 ML Syringe IV ×3 (14:25→22:23)
[2020-03-22 19:21] LABS: Bedside Glucose 145 mg/dL (70-110)
[2020-03-22] MEDS: Ondansetron 4 MG/2 ML Vial IV (22:23)
[2020-03-22] MEDS: 0.9% Normal Saline 1,000 ML 30 ML IV (22:55)
[2020-03-22] MEDS: Zolpidem Tartrate 5 MG Tablet PO (22:57)
--- NOTE | 2020-03-22 23:00 | NURSING ---
pt ambulated in halls x2 and sat up in chair for 2 hrs this evening
[2020-03-22 23:30] LABS: Bedside Glucose 143 mg/dL (70-110)
[2020-03-23] VITALS (12 sets, daily range): BP systolic 145–166; BP diastolic 74–99; PULSE 83–95; RESP 16–20; TEMP 36.8–37.2; O2SAT 91–98
[2020-03-23 03:46] LABS: Bedside Glucose 113 mg/dL (70-110)
[2020-03-23] MEDS: metroNIDAZOLE 500 MG/100 ML BAG 100 MG IV ×3 (05:27→21:29)
[2020-03-23 05:40] LABS: Bedside Glucose 115 mg/dL (70-110)
--- NOTE | 2020-03-23 06:28 | PCM.PN.SRG ---
Patient Problems: Active and Suspected Problems Gallstone pancreatitis (Acute) Subjective: Patient continues to feel improved. Minimal nausea with clear liquids yesterday. She feels bloated in the abdomen. She feels like she needs to move her bowels. She has walked the halls 4 times. I found her sitting out of bed in a chair. She is still on nasal prong oxygen therapy. - Physical Exam Vitals/I&O's: Vital Signs Temp Pulse Resp BP Pulse Ox 98.3 F 87 20 H 159/83 H 97 03/23/20 03:40 03/23/20 03:46 03/23/20 03:40 03/23/20 03:40 03/23/20 03:40 Oxygen Flow Rate (L/min) 1 Oxygen Delivery Method Nasal Cannula Weight: 190 lb 7.67 oz Body Mass Index (BMI) 37.2 Finger Stick Blood Glucose 115 Intake and Output for Last 24 Hours 03/21/20 03/22/20 03/23/20 23:59 23:59 23:59 Intake Total 3420.25 / 3620.25 3870.00 / 4110.00 685.75 / 685.75 Output Total 975 / 1175 700 / 1300 1000 / 1000 Balance 2445.25 / 2445.25 3170.00 / 2810.00 -314.25 / -314.25 General: Alert, Oriented x3 Lungs: Clear to auscultation, Normal air movement Abdomen: Soft, Hypoactive Bowel Sounds, Tender Laboratory Results 03/22/20 06:15: POC Glucose 83 03/22/20 06:47: WBC 18.8 H, RBC 3.91 L, Hgb 10.8 L, Hct 34.8 L, MCV 89.0, MCH 27.6, MCHC 31.0 L, RDW Std Deviation 47.7 H, RDW Coeff of Clarence 14.8 H, Plt Count 295, MPV 9.9, Immature Gran % (Auto) 1.600 H, Neut % (Auto) 88.1 H, Lymph % (Auto) 4.0 L, [place] % (Auto) 6.0, Eos % (Auto) 0.1, Baso % (Auto) 0.2, Absolute Neuts (auto) 16.6 H, Absolute Lymphs (auto) 0.75 L, Nucleated RBC % 0 03/22/20 06:47: Sodium 140, Potassium 3.5, Chloride 108 H, Carbon Dioxide 27.0, Anion Gap 5, BUN 9, Creatinine 0.57, Estim Creat Clear Calc 35.99, Est GFR (MDRD) Af Amer 132, Est GFR (MDRD) Non-Af 109, BUN/Creatinine Ratio 15.7, Glucose 99, Calcium 8.0 L, Total Bilirubin 2.70 H, AST 53 H, ALT 78 H, Alkaline Phosphatase 226 H, Total Protein 6.3 L, Albumin 2.5 L, Globulin 3.8, Albumin/Globulin Ratio 0.7 L, Lipase 192 03/22/20 11:54: POC Glucose 165 H 03/22/20 17:23: POC Glucose 145 H 03/22/20 23:16: POC Glucose 143 H 03/23/20 03:36: POC Glucose 113 H 03/23/20 05:33: POC Glucose 115 H Current Medications Albuterol Sulfate (Ventolin Aerosols) 2.5 mg INHALATION Q4H PRN PRN PRN Reason: Shortness of Breath/Wheezing Enoxaparin Sodium (Lovenox) 40 mg SC DAILY [facility] Last Admin: 03/22/20 10:22 Dose: 40 mg Documented by: Hydralazine HCl (Apresoline Iv) 10 mg IV Q6H PRN PRN PRN Reason: for SBP>160 Pantoprazole Sodium 40 mg/ (Sodium Chloride) 110 mls @ 330 mls/hr IV Q12 [facility] Last Infusion: 03/22/20 22:41 Dose: Infused Documented by: Cefepime HCl 1 gm/ Sodium (Chloride) 50 mls @ 100 mls/hr IV Q12 [facility] Last Infusion: 03/22/20 23:24 Dose: Infused Documented by: Metronidazole (Flagyl) 500 mg in 100 mls @ 100 mls/hr IV Q8 [facility] Last Admin: 03/23/20 05:27 Dose: 100 mls/hr Documented by: Sodium Chloride () 1,000 mls @ 30 mls/hr IV .[id number] [facility] Last Infusion: 03/23/20 05:27 Dose: 0 mls/hr Documented by: Sodium Chloride () 250 mls @ 15 mls/hr IV .[id number] PRN PRN Reason: Saline Flush Last Infusion: 03/23/20 01:23 Dose: Infused Documented by: Sodium Chloride () 250 mls @ 15 mls/hr IV .[id number] PRN PRN Reason: Additional IVPB Infusion Insulin Human Lispro (Humalog Kwikpen (Bkc)) 0 unit SC Q6 [facility]; Protocol Last Admin: 03/23/20 05:33 Dose: Not Given Documented by: Morphine Sulfate () 2 mg IV Q3H PRN PRN PRN Reason: Pain Score 6-10/10 Last Admin: 03/22/20 19:33 Dose: 2 mg Documented by: Ondansetron HCl (Zofran) 4 mg IV Q8H PRN PRN PRN Reason: NAUSEA/VOMITING Last Admin: 03/22/20 22:23 Dose: 4 mg Documented by: Potassium Chloride (K-Dur) 20 meq PO BIDCM [facility] Last Admin: 03/22/20 17:19 Dose: 20 meq Documented by: Promethazine HCl (Phenergan) 6.25 mg IV Q6H PRN PRN PRN Reason: NAUSEA/VOMITING Last Admin: 03/21/20 07:31 Dose: 6.25 mg Documented by: Sodium Chloride () 10 - 40 ml IV UD PRN PRN Reason: SALINE FLUSH Last Admin: 03/22/20 22:23 Dose: 10 ml Documented by: Zolpidem Tartrate (Ambien (Generic)) 5 mg PO QHS PRN PRN PRN Reason: INSOMNIA Last Admin: 03/22/20 22:57 Dose: 5 mg Documented by: Medical Necessity - Tobacco Use Smoking Status: Never smoker Assessment/Plan All Active Problems Gallstone pancreatitis (Acute) The patient had questions about her upcoming surgery which I attempted to answer. She is concerned that the surgery will be done in the same area namely epigastrium where she still is persistently sore. I tried to reassure her that it would be done laparoscopically and I am not anticipating that she should have any difficulties. We will provide a suppository today to help assist with her feeling of needing to move her bowels We will hold her clear liquids today. I continue to encourage I-S and mobilization. The patient said that her urine was clear yesterday afternoon and then became more dark by evening. Her laboratory is pending
--- NOTE | 2020-03-23 08:22 | PCM.PROGNOTE ---
Patient Problems: Active and Suspected Problems Gallstone pancreatitis (Acute) Subjective: Chief complaint: Follow-up after admission for acute gallstone pancreatitis and suspected ascending cholangitis. Patient seen and examined. No acute events overnight. Abdominal pain has been improving, denied nausea or vomiting this morning. Shortness of breath is also improved and she is down to 1 L of oxygen. She has been afebrile, blood pressure and heart rate are stable, pulse ox is 97% on 1 L. - Physical Exam Vitals/I&O's: Vital Signs Temp Pulse Resp BP Pulse Ox 98.3 F 87 20 H 159/83 H 91 03/23/20 03:40 03/23/20 03:46 03/23/20 03:40 03/23/20 03:40 03/23/20 08:05 Oxygen Flow Rate (L/min) 1 Oxygen Delivery Method Nasal Cannula Weight: 190 lb 7.67 oz Body Mass Index (BMI) 37.2 Finger Stick Blood Glucose 115 Intake and Output for Last 24 Hours 03/21/20 03/22/20 03/23/20 23:59 23:59 23:59 Intake Total 3420.25 / 3620.25 3870.00 / 4110.00 785.75 / 785.75 Output Total 975 / 1175 700 / 1300 1000 / 1000 Balance 2445.25 / 2445.25 3170.00 / 2810.00 -214.25 / -214.25 General: Alert, Oriented x3, Cooperative, - - Minimally short of breath. HEENT: Atraumatic, PERRLA, EOMI, Normocephalic Oral: Moist Mucosa, No Gingival or Mucosal Lesions/ Ulcerations Neck: Supple, No JVD, Negative Carotid Bruits, Trachea Midline, Thyroid Normal Size and Texture Lungs: Clear to auscultation, No rhonchi, No wheeze, No rales, Diminished, - - Diminished breath sounds at the bases, otherwise clear. Cardiovascular: Regular rate, Regular Rhythm, Normal S1, Normal S2, PMI Normal Abdomen: Bowel Sounds Present, Soft, Non-Distended, No Hepato-splenomegaly, Obese, Tender - Minimal epigastric and right upper quadrant tenderness. Extremities: No clubbing, No cyanosis, No edema Skin: No rashes, No breakdown Lymphatic: No Cervical, Supraclavicular, or Inguinal Adenopathy Neurological: Cranial nerves II-XII grossly intact, Neuro grossly intact Psych/Mental Status: Normal Affect, Appropriate, Alert and oriented to time, place, person, mood and affect Laboratory Results 03/22/20 11:54: POC Glucose 165 H 03/22/20 17:23: POC Glucose 145 H 03/22/20 23:16: POC Glucose 143 H 03/23/20 03:36: POC Glucose 113 H 03/23/20 05:33: POC Glucose 115 H Current Medications Albuterol Sulfate (Ventolin Aerosols) 2.5 mg INHALATION Q4H PRN PRN PRN Reason: Shortness of Breath/Wheezing Enoxaparin Sodium (Lovenox) 40 mg SC DAILY [facility] Last Admin: 03/22/20 10:22 Dose: 40 mg Documented by: Hydralazine HCl (Apresoline Iv) 10 mg IV Q6H PRN PRN PRN Reason: for SBP>160 Pantoprazole Sodium 40 mg/ (Sodium Chloride) 110 mls @ 330 mls/hr IV Q12 [facility] Last Infusion: 03/22/20 22:41 Dose: Infused Documented by: Cefepime HCl 1 gm/ Sodium (Chloride) 50 mls @ 100 mls/hr IV Q12 [facility] Last Infusion: 03/22/20 23:24 Dose: Infused Documented by: Metronidazole (Flagyl) 500 mg in 100 mls @ 100 mls/hr IV Q8 [facility] Last Infusion: 03/23/20 06:27 Dose: Infused Documented by: Sodium Chloride () 1,000 mls @ 30 mls/hr IV .[id number] [facility] Last Infusion: 03/23/20 06:27 Dose: 30 mls/hr Documented by: Sodium Chloride () 250 mls @ 15 mls/hr IV .[id number] PRN PRN Reason: Saline Flush Last Infusion: 03/23/20 01:23 Dose: Infused Documented by: Sodium Chloride () 250 mls @ 15 mls/hr IV .[id number] PRN PRN Reason: Additional IVPB Infusion Insulin Human Lispro (Humalog Kwikpen (Bkc)) 0 unit SC Q6 [facility]; Protocol Last Admin: 03/23/20 05:33 Dose: Not Given Documented by: Morphine Sulfate () 2 mg IV Q3H PRN PRN PRN Reason: Pain Score 6-10/10 Last Admin: 03/22/20 19:33 Dose: 2 mg Documented by: Ondansetron HCl (Zofran) 4 mg IV Q8H PRN PRN PRN Reason: NAUSEA/VOMITING Last Admin: 03/22/20 22:23 Dose: 4 mg Documented by: Potassium Chloride (K-Dur) 20 meq PO BIDCM [facility] Last Admin: 03/22/20 17:19 Dose: 20 meq Documented by: Promethazine HCl (Phenergan) 6.25 mg IV Q6H PRN PRN PRN Reason: NAUSEA/VOMITING Last Admin: 03/21/20 07:31 Dose: 6.25 mg Documented by: Sodium Chloride () 10 - 40 ml IV UD PRN PRN Reason: SALINE FLUSH Last Admin: 03/22/20 22:23 Dose: 10 ml Documented by: Zolpidem Tartrate (Ambien (Generic)) 5 mg PO QHS PRN PRN PRN Reason: INSOMNIA Last Admin: 03/22/20 22:57 Dose: 5 mg Documented by: Medical Necessity - Tobacco Use Smoking Status: Never smoker Assessment/Plan All Active Problems Gallstone pancreatitis (Acute) This is a 74 years old female patient presented with abdominal pain with nausea and vomiting and she was found to have acute pancreatitis and she is being admitted for treatment. #1 acute gallstone pancreatitis/suspected acute cholangitis: Remains on clear liquids, minimal IV fluids, IV antibiotics, IV antiemetics, IV Protonix. Status post ERCP that revealed bulging major papilla, biliary sludge, biliary sphincterotomy was performed. She has been afebrile, symptoms of abdominal pain, nausea vomiting has been improving. No blood work was done today. General surgery on the case. Plan for laparoscopic cholecystectomy tomorrow. #2 elevated LFT: Attributed to suspected acute cholangitis. Status post ERCP as mentioned above. CBD diameter was normal on ultrasound, it was 3.4 mm. Total bilirubin as well as liver transaminases was trending down from yesterday's blood work. MRCP showed no evidence of choledocholithiasis. Plan as above. #3 type 2 diabetes mellitus: Blood sugar stable, continue Accu-Cheks every 6 hours, insulin sliding scale, keep holding metformin. #4 hypertension: Blood pressure stable, keep holding Norvasc, irbesartan/HCTZ and metoprolol. Continue IV hydralazine PRN. #5 hypothyroidism: Keep holding levothyroxine. #6 bronchial asthma: Shortness of breath improved, it was attributed to mild volume overload. She is down to 1 L of oxygen. She is on albuterol PRN. Chest x-ray from yesterday reviewed, revealed poor aeration of the right lung, treated patient. #7 hyperlipidemia: Statins held. #8 GERD: Continue IV Protonix twice daily. #9 DVT prophylaxis: Subcu Lovenox. This note was generated with [employer] dictation software. It may contain incorrect words, spelling, and punctuation that were not noted in checking the note before signing. Inpatient E&M: 01277 Subs Hosp L2
[2020-03-23] MEDS: Bisacodyl 10 MG Suppository RECTAL (09:54)
[2020-03-23] MEDS: Enoxaparin 40 MG/0.4 ML Syringe SC (10:05)
[2020-03-23 12:05] LABS: Bedside Glucose 128 mg/dL (70-110)
[2020-03-23] MEDS: 0.9% Saline Lock 10 ML Syringe IV (20:18)
[2020-03-23] MEDS: Morphine 2 MG/ML Syringe IV (20:18)
[2020-03-23 21:30] LABS: Bedside Glucose 106 mg/dL (70-110)
[2020-03-23] MEDS: Zolpidem Tartrate 5 MG Tablet PO (23:17)
[2020-03-23 23:21] LABS: Bedside Glucose 116 mg/dL (70-110)
[2020-03-24] VITALS (24 sets, daily range): BP systolic 151–173; BP diastolic 75–84; PULSE 70–97; RESP 12–20; TEMP 36.6–37.2; O2SAT 92–99; BMI 37.2
[2020-03-24] MEDS: hydrALAZINE 20 MG/ML Vial 10 MG IV ×2 (02:04→20:03)
[2020-03-24] MEDS: 0.9% Saline Lock 10 ML Syringe IV ×3 (02:04→20:03)
[2020-03-24] MEDS: metroNIDAZOLE 500 MG/100 ML BAG 100 MG IV ×3 (05:29→21:18)
[2020-03-24 05:41] LABS: Bedside Glucose 109 mg/dL (70-110)
[2020-03-24 07:42] LABS: Absolute Lymphocyte Count 1.06 X10^3/uL (0.83-4.51); Absolute Neutrophil Count 9.7 X10^3/uL (2.0-7.7); Basophil# 0.04 X10^3/uL; Basophil% 0.3 % (0-1); Eosinophil# 0.17 X10^3/uL; Eosinophils% 1.4 % (0-5); Hematocrit 32.2 % (37-47); Hemoglobin 10.3 g/dL (12.0-15.0); Lymphocyte # 1.06 X10^3/ul (4.0); Lymphocyte % 8.9 % (19-41); Mean Corpuscular Hgb 27.6 pg (27.0-32.0); Mean Corpuscular Volume 86.3 fL (81-99); Mean Platelet Vol. 9.5 fl (6.2-12.0); Monocyte# 0.89 X10^3/uL; Monocyte% 7.5 % (0-10); NRBC Flagged by Analyzer 0 % (0-5); Neutrophil # 9.65 X10^3/uL (2.7-7.7); Neutrophil % 81.2 % (47-70); Platelet Count 314 K/mm3 (150-450); RBC Distribution Width CV 14.8 % (11.6-14.6); RBC Distribution Width SD 46.8 fl (35.1-43.9); Red Blood Count 3.73 M/mm3 (4.2-5.4); White Blood Count 11.9 K/mm3 (4.4-11.0)
[2020-03-24 08:07] LABS: ALB/GLOB Ratio 0.7 RATIO (0.9-2.4); AST(SGOT) 20 U/L (15-37); Alanine Aminotransfer ALT/SGPT 38 U/L (13-56); Albumin, Serum 2.4 g/dL (3.2-5.0); Alkaline Phosphatase 154 U/L (45-117); Anion Gap 6 (5-15); BUN 7 mg/dL (7-18); Calcium,Total 8.1 mg/dL (8.5-10.1); Chloride 104 mmol/L (98-107); Creatinine, Serum 0.39 mg/dL (0.55-1.02); EST Glomerular Filtration Rate 172 mL/min (>60); Est Glom Filt Rate - Afr Amer 208 mL/min (>60); Estimated Creatinine Clearance 35.99 ml/min; Globulin 3.6 g/dL (2.2-4.2); Glucose 110 mg/dL (74-106); Potassium 3.2 mmol/L (3.5-5.1); Sodium Level 140 mmol/L (136-145); Thyroid Stim Hormone (TSH) 2.72 uIU/mL (0.358-3.74)
[2020-03-24 08:36] LABS: Hemoglobin A1c 6.6 % (3.8-5.6)
[2020-03-24] MEDS: Lactated Ringers 1,000 ML 100 ML IV ×2 (10:20→12:36)
--- NOTE | 2020-03-24 12:17 | RAD_ITS ---
STUDY: INTRAOPERATIVE GLANDULAR. REASON FOR EXAM: Female, 74 years old. LAP LEIGHANN -- 1 CINE RUN, 16.4 FLUORO SEC, 7.13mGy FLUOROSCOPY TIME (if supplied): ( 16.4 seconds ) minutes/seconds. A cine loop consisting of 93 images were submitted. TECHNIQUE: Intraoperative Cholangiogram was performed by the surgeon. Imaging was submitted. COMPARISON: None. FINDINGS: The intrahepatic biliary ducts are unremarkable. The common bile duct is unremarkable as well. There is free flow of contrast into the duodenum. RAD/Cholangiogram/ O R,Initial IMPRESSION: Unremarkable intraoperative cholangiogram. Electronically Signed: Luis Lynne, at 13:11 EDT , Service support ,
[2020-03-24] MEDS: Bupiv/Epi 0.25% 30 ML Vial (13:03)
--- NOTE | 2020-03-24 13:32 | PCM.OPRPT ---
Problem List (1) Gallstone pancreatitis Status: Acute Report of Operation Date of Procedure: 03/24/20 Pre-Operative Diagnosis: Gallstone pancreatitis Post-Operative Diagnosis: Same Surgery/Procedure Performed:: Laparoscopic cholecystectomy with cholangiogram Specimen's removed: Gallbladder Description of Procedure: After obtaining informed consent patient was brought back to the operating room. General anesthesia was induced. The abdomen was prepped and draped in usual sterile fashion. A small midline incision was made superior to the umbilicus and deepened to the level of fascia. The fascia was elevated and incised. Next the peritoneum was elevated and incised in the same fashion. Finger sweep was performed and the Patton trocar was placed into the abdomen. The balloon was inflated. The abdomen was inflated to 15 mmHg. Next a camera was introduced into the abdomen and the abdomen was inspected. Next under direct visualization three 5-mm ports were placed one subxiphoid and 2 subcostal. Next the gallbladder was elevated and retracted toward the right shoulder. The peritoneum was stripped from the gallbladder. The infundibulum was located and retracted laterally. Next the triangle of Calot was dissected and the cystic duct and cystic artery were identified. Cholangiograms were performed. The Albarado clamp was used to clamp across the infundibulum and the catheter needle was inserted into the gallbladder. Under fluoroscopy contrast was instilled into the gallbladder and the common duct, cystic duct as well as proximal hepatic ducts were identified. There was good filling of the duodenum. There were no filling defects noted in the common bile duct. The clamp was removed as well as the needle and the infundibulum was grasped once more. Three hemolock clips were placed across the cystic duct. The cystic duct was then divided leaving 2 clips on the stump. The cystic artery was clipped and divided in the same fashion. The hook cautery was then used to take the gallbladder off of the gallbladder bed. Hemostasis was obtained. Gallbladder fossa was irrigated and no active bleeding or bile leakage was noted. Next the camera was introduced in the subxiphoid port. An Endopouch bag was placed through the umbilical port and the gallbladder was placed into it. The gallbladder was then removed through the umbilical incision. The camera was then reinserted through the umbilical port. The gallbladder fossa was inspected once more and noted to be hemostatic with no leaking bile. The abdomen was suctioned dry. The 5 mm ports were removed under direct visualization. The umbilical port was then removed and the air was removed from the abdomen. Next using an 0 Vicryl suture the umbilical fascia was closed in a [id number] fashion. The umbilical port site was irrigated local anesthetic was administered to all the incisions. All the incisions were closed with interrupted subcuticular 4-0 Monocryl sutures followed by Steri-Strips and dressings. The patient was awoken and taken to PACU in stable condition. - Admit VTE Documentation VTE Mechan Device Prophylaxis: SCD's
[2020-03-24 13:41] LABS: Bedside Glucose 109 mg/dL (70-110)
--- NOTE | 2020-03-24 14:33 | PCM.PN.HOSP ---
Patient Problems: Active and Suspected Problems Gallstone pancreatitis (Acute) Subjective: Pt has just returned from OR. Takes quite a bit of stimuli to awaken. Admits to having JOSIE but not compliant with home treatment. Falls back asleep Vitals/I&O's: Vital Signs Temp Pulse Resp BP Pulse Ox 98.4 F 91 16 166/83 H 96 03/24/20 13:35 03/24/20 14:15 03/24/20 14:15 03/24/20 14:15 03/24/20 14:15 Oxygen Flow Rate (L/min) 2 Oxygen Delivery Method Nasal Cannula Weight: 86.4 kg Body Mass Index (BMI) 37.2 Finger Stick Blood Glucose 115 Intake and Output for Last 24 Hours 03/22/20 03/23/20 03/24/20 23:59 23:59 23:59 Intake Total 3870.00 / 4110.00 2657.25 / 2897.25 1980.5 / 1980.5 Output Total 700 / 1300 1000 / 1700 1300 / 1300 Balance 3170.00 / 2810.00 1657.25 / 1197.25 680.5 / 680.5 General: Lethargic, - - sleepy, Obese WF lying in bed sleeping, has just returned from PACU HEENT: Atraumatic, PERRLA, EOMI, Normocephalic, EAC Clear Oral: Moist Mucosa, No Gingival or Mucosal Lesions/ Ulcerations, Dry Mucosa, - - Mallamapti 3 Neck: Supple, No JVD, - - short thick neck Lungs: No rhonchi, No wheeze, No rales, Diminished - bases B Cardiovascular: Regular Rhythm, Normal S1, Normal S2, No murmurs, No Ectopic Activity, No rub noted, No Gallop, Tachycardic - slight Abdomen: Soft, Hypoactive Bowel Sounds, Distended, Tender, - - laproscopic incisions noted, no oozing at the present time Extremities: No clubbing, No cyanosis, No edema, Capillary Refill Less than 3 Seconds Skin: No rashes, No breakdown Musculoskeletal: No Tenderness to Palpation of Joints or Extremities Lymphatic: No Cervical, Supraclavicular, or Inguinal Adenopathy Neurological: Deep Tendon Reflexes 2+/4 and Symmetrical, - - difficult to fully assess 2/2 pt sleepiness in the immediate post-op period Psych/Mental Status: - - sleepy Laboratory Results 03/23/20 17:31: POC Glucose 106 03/23/20 23:13: POC Glucose 116 H 03/24/20 05:33: POC Glucose 109 03/24/20 05:45: WBC Cancelled, Corrected WBC Cancelled, RBC Cancelled, Hgb Cancelled, Hct Cancelled, MCV Cancelled, MCH Cancelled, MCHC Cancelled, RDW Std Deviation Cancelled, RDW Coeff of Clarence Cancelled, Plt Count Cancelled, MPV Cancelled, Immature Gran % (Auto) Cancelled, Neut % (Auto) Cancelled, Lymph % (Auto) Cancelled, Bracken % (Auto) Cancelled, Eos % (Auto) Cancelled, Baso % (Auto) Cancelled, Absolute Neuts (auto) Cancelled, Absolute Lymphs (auto) Cancelled, Total Counted Cancelled, Neutrophils % (Manual) Cancelled, Band Neutrophils % Cancelled, Lymphocytes % (Manual) Cancelled, Monocytes % (Manual) Cancelled, Eosinophils % (Manual) Cancelled, Basophils % (Manual) Cancelled, Metamyelocytes % Cancelled, Myelocytes % Cancelled, Promyelocytes % Cancelled, Blast Cells % Cancelled, Plasma Cell % (Manual) Cancelled, Other Cells % Cancelled, Nucleated RBC % Cancelled, Nucleated RBCs/100 WBC Cancelled, Differential Comment Cancelled, Diff Path Review Cancelled, Hypersegmented Neuts Cancelled, Atypical Lymphocytes Cancelled, Reactive Lymphocytes Cancelled, Smudge Cells Cancelled, Toxic Granulation Cancelled, Toxic Vacuolation Cancelled, Dohle Bodies Cancelled, Ladarius Rods Cancelled, Platelet Estimate Cancelled, Plt Morphology Comment Cancelled, RBC Morphology Cancelled, Polychromasia Cancelled, Hypochromasia Cancelled, Poikilocytosis Cancelled, Basophilic Stippling Cancelled, Anisocytosis Cancelled, Microcytosis Cancelled, Macrocytosis Cancelled, Spherocytes Cancelled, Sickle Cells Cancelled, Target Cells Cancelled, Tear Drop Cells Cancelled, Ovalocytes Cancelled, Stomatocytes Cancelled, Dorado-Doon Bodies Cancelled, Christal Cells Cancelled, Bite Cells Cancelled, Crenated Cell Cancelled, Acanthocytes (Spur) Cancelled, Rouleaux Cancelled, Schistocytes Cancelled 03/24/20 05:45: Sodium Cancelled, Potassium Cancelled, Chloride Cancelled, Carbon Dioxide Cancelled, Anion Gap Cancelled, BUN Cancelled, Creatinine Cancelled, Estim Creat Clear Calc Cancelled, Est GFR (MDRD) Af Amer Cancelled, Est GFR (MDRD) Non-Af Cancelled, BUN/Creatinine Ratio Cancelled, Glucose Cancelled, Calcium Cancelled, Total Bilirubin Cancelled, AST Cancelled, ALT Cancelled, Alkaline Phosphatase Cancelled, Total Protein Cancelled, Albumin Cancelled, Globulin Cancelled, Albumin/Globulin Ratio Cancelled 03/24/20 05:45: TSH Cancelled 03/24/20 05:45: Hemoglobin A1c Cancelled 03/24/20 07:25: WBC 11.9 H, RBC 3.73 L, Hgb 10.3 L, Hct 32.2 L, MCV 86.3, MCH 27.6, MCHC 32.0, RDW Std Deviation 46.8 H, RDW Coeff of Clarence 14.8 H, Plt Count 314, MPV 9.5, Immature Gran % (Auto) 0.700, Neut % (Auto) 81.2 H, Lymph % (Auto) 8.9 L, Bracken % (Auto) 7.5, Eos % (Auto) 1.4, Baso % (Auto) 0.3, Absolute Neuts (auto) 9.7 H, Absolute Lymphs (auto) 1.06, Nucleated RBC % 0 03/24/20 07:25: Sodium 140, Potassium 3.2 L, Chloride 104, Carbon Dioxide 30.0, Anion Gap 6, BUN 7, Creatinine 0.39 L, Estim Creat Clear Calc 35.99, Est GFR (MDRD) Af Amer 208, Est GFR (MDRD) Non-Af 172, BUN/Creatinine Ratio 18.0, Glucose 110 H, Calcium 8.1 L, Total Bilirubin 1.00, AST 20, ALT 38, Alkaline Phosphatase 154 H, Total Protein 6.0 L, Albumin 2.4 L, Globulin 3.6, Albumin/Globulin Ratio 0.7 L, TSH 2.72 03/24/20 07:25: Hemoglobin A1c 6.6 H 03/24/20 13:38: POC Glucose 109 Current Medications Albuterol Sulfate (Ventolin Aerosols) 2.5 mg INHALATION Q4H PRN PRN PRN Reason: Shortness of Breath/Wheezing Enoxaparin Sodium (Lovenox) 40 mg SC DAILY [facility] [place] Last Admin: 03/24/20 08:43 Dose: Not Given Documented by: Hydralazine HCl (Apresoline Iv) 10 mg IV Q6H PRN PRN PRN Reason: for SBP>160 Last Admin: 03/24/20 02:04 Dose: 10 mg Documented by: Pantoprazole Sodium 40 mg/ (Sodium Chloride) 110 mls @ 330 mls/hr IV Q12 [facility] Last Infusion: 03/24/20 10:21 Dose: Infused Documented by: Cefepime HCl 1 gm/ Sodium (Chloride) 50 mls @ 100 mls/hr IV Q12 [facility] [place] Last Infusion: 03/24/20 09:20 Dose: Infused Documented by: Metronidazole (Flagyl) 500 mg in 100 mls @ 100 mls/hr IV Q8 [facility] [place] Last Admin: 03/24/20 14:30 Dose: 100 mls/hr Documented by: Sodium Chloride () 1,000 mls @ 30 mls/hr IV .[id number] [facility] Last Infusion: 03/24/20 10:21 Dose: 30 mls/hr Documented by: Sodium Chloride () 250 mls @ 15 mls/hr IV .[id number] PRN PRN Reason: Saline Flush Last Infusion: 03/23/20 01:23 Dose: Infused Documented by: Sodium Chloride () 250 mls @ 15 mls/hr IV .[id number] PRN PRN Reason: Additional IVPB Infusion Lactated Ringer's () 1,000 mls @ 100 mls/hr IV .Q10H [facility] [place] Last Admin: 03/24/20 12:36 Dose: 100 mls/hr Documented by: Insulin Human Lispro (Humalog Kwikpen (Bkc)) 0 unit SC Q6 [facility]; Protocol Last Admin: 03/24/20 05:33 Dose: Not Given Documented by: Morphine Sulfate () 2 mg IV Q3H PRN PRN PRN Reason: Pain Score 6-10/10 Last Admin: 03/23/20 20:18 Dose: 2 mg Documented by: Ondansetron HCl (Zofran) 4 mg IV Q8H PRN PRN PRN Reason: NAUSEA/VOMITING Last Admin: 03/22/20 22:23 Dose: 4 mg Documented by: Potassium Chloride (K-Dur) 20 meq PO BIDCM [facility] Last Admin: 03/23/20 17:33 Dose: 20 meq Documented by: Promethazine HCl (Phenergan) 6.25 mg IV Q6H PRN PRN PRN Reason: NAUSEA/VOMITING Last Admin: 03/21/20 07:31 Dose: 6.25 mg Documented by: Sodium Chloride () 10 - 40 ml IV UD PRN PRN Reason: SALINE FLUSH Last Admin: 03/24/20 05:29 Dose: 10 ml Documented by: Zolpidem Tartrate (Ambien (Generic)) 5 mg PO QHS PRN PRN PRN Reason: INSOMNIA Last Admin: 03/23/20 23:17 Dose: 5 mg Documented by: STROKE Vital Signs/Narrative: Vital Signs Temp Pulse Resp BP Pulse Ox 03/24/20 14:15 91 16 166/83 H 96 03/24/20 14:00 93 16 168/84 H 95 03/24/20 13:45 96 16 170/80 H 96 03/24/20 13:35 98.4 F 95 16 171/84 H 97 Medical Necessity - Tobacco Use Smoking Status: Never smoker Assessment/Plan All Active Problems Gallstone pancreatitis (Acute) Acute Gallstone Pancreatitis with suspected cholangitis -POD 0 from [facility] with cholangiogram today 03/24 -had ERCP with sphincterotomy done 03/21 -Cefepime to complete today and pt has had appropriate drainage and treatment -WBC count is trending down -may go up a bit tomorrow with OR today -wean IVF to 50 cc/hr and d/c tomorrow if PO intake of fluids is adequate -CLD per GS -GS following Hypokalemia -40 mEq Po and recheck in am -check am mag DM-2 Controlled -A1c is 6.6 -BGT here good -SSI only for now -take metformin at home Transaminitis -AST and ALT resolved -AP is still mildly elevated -bili WNL HTN -restart home amlodipine 10 mg, metoprolol 25 mg BID and Losartan as substitution for home ARB -hold HCTZ Hypothyroidism -continue Synthroid JOSIE -untreated at baseline -CPAP now and naps/qhs for now -8 cmH2O Asthma -on 4 L now in postoperative period -wean as able to no O2 as pt is not dependent at home -wean IVF and restart home diuretic (HCTZ as able) -nebs -IS HPL -statin on hold for now -restart tomorrow if stable and tolerating PO GERD -PPI IV for now DVT prophylaxis -Lovenox Code Status -not ordered--> unable to discuss with pt at present time 2/2 MS post op Inpatient E&M: 37747 Subs Hosp L3
[2020-03-24 17:31] LABS: Bedside Glucose 127 mg/dL (70-110)
[2020-03-24 18:11] LABS: Allen Test Positive; Base Excess 2 mmol/L (-2 to +2); Bicarbonate 28.2 mmol/L (22-26); Blood Gas Specimen Type ART; FI02 30; O2 Delivery Device BiPAP; PO2 77 mmHG (75-100); SITE L Radial; SO2 94 % (95-99); Total Carbon Dioxide 30 mmol/L; pCO2 52.8 mmHg (35-45); pH 7.34 (7.35-7.45)
--- NOTE | 2020-03-24 20:45 | NURSING ---
this rn set up to straight cath pt who previously was only responding to physical stimuli and mumbling. pt awoke and asked repeatedly to get up to bsc instead of being straight cath'd. this rn and gas engine operator compressors pablito assisted pt on bedpan but pt was unable to void. bipap removed and nasal cannula placed. pt a/ox3 and denied pain or nausea. assisted pt to sit on edge of bed for a few minutes and then assisted to bsc with gas engine operator compressors pablito and pt was able to void. pt kimberly activity well.
[2020-03-24] MEDS: Lactated Ringers 1,000 ML 50 ML IV (21:15)
--- NOTE | 2020-03-24 21:35 | NURSING ---
update given to pt's , Iain. pt notified of update
[2020-03-24] MEDS: Metoprolol Tartrate 25 MG Tablet PO (22:46)
[2020-03-24 23:26] LABS: Bedside Glucose 136 mg/dL (70-110)
[2020-03-25] VITALS (19 sets, daily range): BP systolic 149–173; BP diastolic 50–87; PULSE 72–100; RESP 12–21; TEMP 36.9–37.6; O2SAT 85–99; BMI 37.2
[2020-03-25] MEDS: 0.9% Saline Lock 10 ML Syringe IV (02:32)
[2020-03-25] MEDS: Morphine 2 MG/ML Syringe IV (02:32)
[2020-03-25] MEDS: Ondansetron 4 MG/2 ML Vial IV (02:43)
[2020-03-25 06:14] LABS: Absolute Lymphocyte Count 1.13 X10^3/uL (0.83-4.51); Absolute Neutrophil Count 7.5 X10^3/uL (2.0-7.7); Basophil# 0.03 X10^3/uL; Basophil% 0.3 % (0-1); Eosinophil# 0.15 X10^3/uL; Eosinophils% 1.5 % (0-5); Hemoglobin 10.1 g/dL (12.0-15.0); Lymphocyte # 1.13 X10^3/ul (4.0); Lymphocyte % 11.6 % (19-41); Mean Corp Hgb Conc 31.6 g/dL (32-36); Mean Corpuscular Hgb 27.4 pg (27.0-32.0); Mean Platelet Vol. 9.6 fl (6.2-12.0); Monocyte# 0.85 X10^3/uL; Monocyte% 8.7 % (0-10); NRBC Flagged by Analyzer 0 % (0-5); Neutrophil # 7.54 X10^3/uL (2.7-7.7); Neutrophil % 77.2 % (47-70); Platelet Count 341 K/mm3 (150-450); RBC Distribution Width CV 15.2 % (11.6-14.6); RBC Distribution Width SD 48.2 fl (35.1-43.9); Red Blood Count 3.68 M/mm3 (4.2-5.4); White Blood Count 9.8 K/mm3 (4.4-11.0)
[2020-03-25] MEDS: metroNIDAZOLE 500 MG/100 ML BAG 100 MG IV (06:15)
[2020-03-25 06:21] LABS: Allen Test Positive; Base Excess 4 mmol/L (-2 to +2); Bicarbonate 28.8 mmol/L (22-26); Blood Gas Specimen Type ART; O2 Delivery Device BiPAP; PO2 65 mmHG (75-100); SITE L Radial; SO2 92 % (95-99); Total Carbon Dioxide 30 mmol/L; pH 7.41 (7.35-7.45)
[2020-03-25 06:25] LABS: Bedside Glucose 100 mg/dL (70-110)
[2020-03-25 06:47] LABS: ALB/GLOB Ratio 0.6 RATIO (0.9-2.4); AST(SGOT) 49 U/L (15-37); Alanine Aminotransfer ALT/SGPT 41 U/L (13-56); Albumin, Serum 2.1 g/dL (3.2-5.0); Alkaline Phosphatase 132 U/L (45-117); Anion Gap 6 (5-15); BUN 8 mg/dL (7-18); BUN/Creat Ratio 17.4 RATIO (10-20); Chloride 102 mmol/L (98-107); Creatinine, Serum 0.46 mg/dL (0.55-1.02); EST Glomerular Filtration Rate 142 mL/min (>60); Est Glom Filt Rate - Afr Amer 171 mL/min (>60); Estimated Creatinine Clearance 35.99 ml/min; Globulin 3.5 g/dL (2.2-4.2); Glucose 107 mg/dL (74-106); Magnesium 1.9 mg/dL (1.6-2.6); Potassium 3.3 mmol/L (3.5-5.1); Protein, Total 5.6 g/dL (6.4-8.2); Sodium Level 138 mmol/L (136-145)
[2020-03-25 07:18] LABS: FI02 30
--- NOTE | 2020-03-25 07:30 | PN.SURG_ITS ---
Patient Problems: Active and Suspected Problems Gallstone pancreatitis (Acute) Subjective: Patient is still complaining of abdominal pain and some mild nausea. - Physical Exam Vitals/I&O's: Vital Signs Temp Pulse Resp BP Pulse Ox 98.8 F 72 21 H 153/74 H 95 03/25/20 02:24 03/25/20 04:30 03/25/20 04:30 03/25/20 02:24 03/25/20 07:11 Oxygen Flow Rate (L/min) 2 Oxygen Delivery Method Nasal Cannula Weight: 190 lb 7.67 oz Body Mass Index (BMI) 37.2 Finger Stick Blood Glucose 109 Intake and Output for Last 24 Hours 03/23/20 03/24/20 03/25/20 23:59 23:59 23:59 Intake Total 2657.25 / 2897.25 3010.00 / 3370.00 1062.5 / 1062.5 Output Total 1000 / 1700 1300 / 2100 1000 / 1000 Balance 1657.25 / 1197.25 1710.00 / 1270.00 62.5 / 62.5 General: Alert, Oriented x3 Abdomen: Soft, Non-Distended, Tender - Tender in the epigastric and right upper quadrant region Laboratory Results 03/24/20 07:25: WBC 11.9 H, RBC 3.73 L, Hgb 10.3 L, Hct 32.2 L, MCV 86.3, MCH 27.6, MCHC 32.0, RDW Std Deviation 46.8 H, RDW Coeff of Clarence 14.8 H, Plt Count 314, MPV 9.5, Immature Gran % (Auto) 0.700, Neut % (Auto) 81.2 H, Lymph % (Auto) 8.9 L, Converse % (Auto) 7.5, Eos % (Auto) 1.4, Baso % (Auto) 0.3, Absolute Neuts (auto) 9.7 H, Absolute Lymphs (auto) 1.06, Nucleated RBC % 0 03/24/20 07:25: Sodium 140, Potassium 3.2 L, Chloride 104, Carbon Dioxide 30.0, Anion Gap 6, BUN 7, Creatinine 0.39 L, Estim Creat Clear Calc 35.99, Est GFR (MDRD) Af Amer 208, Est GFR (MDRD) Non-Af 172, BUN/Creatinine Ratio 18.0, Glucose 110 H, Calcium 8.1 L, Total Bilirubin 1.00, AST 20, ALT 38, Alkaline Phosphatase 154 H, Total Protein 6.0 L, Albumin 2.4 L, Globulin 3.6, Albumin/Globulin Ratio 0.7 L, TSH 2.72 03/24/20 07:25: Hemoglobin A1c 6.6 H 03/24/20 13:38: POC Glucose 109 03/24/20 17:24: POC Glucose 127 H 03/24/20 18:03: Specimen Type ART, Sample Site L Radial, pH 7.34 L, Bicarbonate Actual 28.2 H, Total CO2 30, Base Excess 2, O2 Saturation 94 L, O2 % 30, ABG pCO2 52.8 H, ABG pO2 77, Keegan Test Positive, O2 Delivery Device BiPAP 03/24/20 23:19: POC Glucose 136 H 03/25/20 06:03: Specimen Type ART, Sample Site L Radial, pH 7.41, Bicarbonate A ctual 28.8 H, Total CO2 30, Base Excess 4 H, O2 Saturation 92 L, O2 % 30, ABG pCO2 46.0 H, ABG pO2 65 L, Keegan Test Positive, O2 Delivery Device BiPAP 03/25/20 06:04: WBC 9.8, RBC 3.68 L, Hgb 10.1 L, Hct 32.0 L, MCV 87.0, MCH 27.4, MCHC 31.6 L, RDW Std Deviation 48.2 H, RDW Coeff of Clarence 15.2 H, Plt Count 341, MPV 9.6, Immature Gran % (Auto) 0.700, Neut % (Auto) 77.2 H, Lymph % (Auto) 11.6 L, Converse % (Auto) 8.7, Eos % (Auto) 1.5, Baso % (Auto) 0.3, Absolute Neuts (auto) 7.5, Absolute Lymphs (auto) 1.13, Nucleated RBC % 0 03/25/20 06:04: Sodium 138, Potassium 3.3 L, Chloride 102, Carbon Dioxide 30.0, Anion Gap 6, BUN 8, Creatinine 0.46 L, Estim Creat Clear Calc 35.99, Est GFR (MDRD) Af Amer 171, Est GFR (MDRD) Non-Af 142, BUN/Creatinine Ratio 17.4, Glucose 107 H, Calcium 8.0 L, Magnesium 1.9, Total Bilirubin 0.70, AST 49 H, ALT 41, Alkaline Phosphatase 132 H, Total Protein 5.6 L, Albumin 2.1 L, Globulin 3.5, Albumin/Globulin Ratio 0.6 L 03/25/20 06:19: POC Glucose 100 Current Medications Albuterol Sulfate (Ventolin Aerosols) 2.5 mg INHALATION Q4H PRN PRN PRN Reason: Shortness of Breath/Wheezing Amlodipine Besylate (Norvasc) 10 mg PO DAILY [facility] Last Admin: 03/24/20 22:34 Dose: Not Given Documented by: Enoxaparin Sodium (Lovenox) 40 mg SC DAILY [facility] Last Admin: 03/24/20 08:43 Dose: Not Given Documented by: Hydralazine HCl (Apresoline Iv) 10 mg IV Q6H PRN PRN PRN Reason: for SBP>160 Last Admin: 03/24/20 20:03 Dose: 10 mg Documented by: Pantoprazole Sodium 40 mg/ (Sodium Chloride) 110 mls @ 330 mls/hr IV Q12 [facility] Last Infusion: 03/24/20 23:24 Dose: Infused Documented by: Cefepime HCl 1 gm/ Sodium (Chloride) 50 mls @ 100 mls/hr IV Q12 [facility] Last Infusion: 03/24/20 22:54 Dose: Infused Documented by: Metronidazole (Flagyl) 500 mg in 100 mls @ 100 mls/hr IV Q8 [facility] Last Admin: 03/25/20 06:15 Dose: 100 mls/hr Documented by: Sodium Chloride () 1,000 mls @ 30 mls/hr IV .[id number] [facility] Last Infusion: 03/24/20 15:34 Dose: Infused Documented by: Sodium Chloride () 250 mls @ 15 mls/hr IV .[id number] PRN PRN Reason: Saline Flush Last Infusion: 03/23/20 01:23 Dose: Infused Documented by: Sodium Chloride () 250 mls @ 15 mls/hr IV .[id number] PRN PRN Reason: Additional IVPB Infusion Lactated Ringer's () 1,000 mls @ 50 mls/hr IV .Q20H [facility] Last Infusion: 03/25/20 06:15 Dose: 0 mls/hr Documented by: Insulin Human Lispro (Humalog Kwikpen (Bkc)) 0 unit SC Q6 [facility]; Protocol Last Admin: 03/25/20 06:21 Dose: Not Given Documented by: Losartan Potassium (Cozaar) 50 mg PO DAILY [facility] Last Admin: 03/24/20 22:34 Dose: Not Given Documented by: Metoprolol Tartrate (Lopressor (Beta José Luis)) 25 mg PO BID [facility] Last Admin: 03/24/20 22:46 Dose: 25 mg Documented by: Morphine Sulfate () 2 mg IV Q3H PRN PRN PRN Reason: Pain Score 6-05/24 Last Admin: 03/25/20 02:32 Dose: 2 mg Documented by: Ondansetron HCl (Zofran) 4 mg IV Q8H PRN PRN PRN Reason: NAUSEA/VOMITING Last Admin: 03/25/20 02:43 Dose: 4 mg Documented by: Potassium Chloride (K-Dur) 20 meq PO BIDCM [facility] Last Admin: 03/24/20 22:44 Dose: 20 meq Documented by: Promethazine HCl (Phenergan) 6.25 mg IV Q6H PRN PRN PRN Reason: NAUSEA/VOMITING Last Admin: 03/21/20 07:31 Dose: 6.25 mg Documented by: Sodium Chloride () 10 - 40 ml IV UD PRN PRN Reason: SALINE FLUSH Last Admin: 03/25/20 02:32 Dose: 10 ml Documented by: Zolpidem Tartrate (Ambien (Generic)) 5 mg PO QHS PRN PRN PRN Reason: INSOMNIA Last Admin: 03/23/20 23:17 Dose: 5 mg Documented by: Medical Necessity - Tobacco Use Smoking Status: Never smoker Assessment/Plan All Active Problems Gallstone pancreatitis (Acute) 74-year-old female status post laparoscopic cholecystectomy for gallstone pancreatitis 1. Patient still having some pain and nausea. Continue clear liquids until patient is doing well and ambulating and passing flatus with no nausea. 2. At this point I believe antibiotics can be stopped. Trevon Vee MD Pager: [facility] [address] [place] [address], [address] [place] [address] Office:
--- NOTE | 2020-03-25 09:51 | PN_ITS ---
Patient Problems: Active and Suspected Problems Gallstone pancreatitis (Acute) Subjective: Pt states that she is feeling tired and sore. Is up in a chair and eating lunch. Asking for pain medication. Per discussion, not ready to and would like to be full code. Vitals/I&O's: Vital Signs Temp Pulse Resp BP Pulse Ox 98.4 F 73 16 149/50 H 96 03/25/20 08:20 03/25/20 08:20 03/25/20 08:20 03/25/20 08:20 03/25/20 08:20 Oxygen Flow Rate (L/min) 1.5 Oxygen Delivery Method Nasal Cannula Weight: 86.4 kg Body Mass Index (BMI) 37.2 Finger Stick Blood Glucose 109 Intake and Output for Last 24 Hours 03/23/20 03/24/20 03/25/20 23:59 23:59 23:59 Intake Total 2657.25 / 2897.25 3010.00 / 3370.00 1162.5 / 1162.5 Output Total 1000 / 1700 1300 / 2100 1000 / 1000 Balance 1657.25 / 1197.25 1710.00 / 1270.00 162.5 / 162.5 General: Alert, Oriented x3, Cooperative, No apparent distress, Well developed, Well nourished HEENT: Atraumatic, PERRLA, EOMI, Normocephalic, TM's Clear, - - Mallamapti 3, tongue orange Oral: Moist Mucosa, No Gingival or Mucosal Lesions/ Ulcerations Neck: Supple, No JVD, Negative Carotid Bruits, Negative Hepatojugular Reflux, No Nodes, No Nuchal Rigidity, Trachea Midline, Thyroid Normal Size and Texture Lungs: Clear to auscultation, Normal air movement, No rhonchi, No wheeze, No rales Cardiovascular: Regular rate, Regular Rhythm, Normal S1, Normal S2, No murmurs, No Ectopic Activity, No rub noted, No Gallop Abdomen: Bowel Sounds Present, Soft, Non-Distended, Obese, Tender Extremities: No clubbing, No cyanosis, No edema, No Calf Tenderness, Peripheral Pulses Normal Skin: No rashes, No breakdown Musculoskeletal: No Tenderness to Palpation of Joints or Extremities, No Muscle Wasting, Arthritic Changes Lymphatic: No Cervical, Supraclavicular, or Inguinal Adenopathy Neurological: Cranial nerves II-XII grossly intact, Neuro grossly intact, Muscle tone normal, Coordination normal Psych/Mental Status: Normal Affect, Appropriate, Alert and oriented to time, place, person, mood and affect Laboratory Results 03/24/20 13:38: POC Glucose 109 03/24/20 17:24: POC Glucose 127 H 03/24/20 18:03: Specimen Type ART, Sample Site L Radial, pH 7.34 L, Bicarbonate Actual 28.2 H, Total CO2 30, Base Excess 2, O2 Saturation 94 L, O2 % 30, ABG pCO2 52.8 H, ABG pO2 77, Keegan Test Positive, O2 Delivery Device BiPAP 03/24/20 23:19: POC Glucose 136 H 03/25/20 06:03: Specimen Type ART, Sample Site L Radial, pH 7.41, Bicarbonate Actual 28.8 H, Total CO2 30, Base Excess 4 H, O2 Saturation 92 L, O2 % 30, ABG pCO2 46.0 H, ABG pO2 65 L, Keegan Test Positive, O2 Delivery Device BiPAP 03/25/20 06:04: WBC 9.8, RBC 3.68 L, Hgb 10.1 L, Hct 32.0 L, MCV 87.0, MCH 27.4, MCHC 31.6 L, RDW Std Deviation 48.2 H, RDW Coeff of Clarence 15.2 H, Plt Count 341, MPV 9.6, Immature Gran % (Auto) 0.700, Neut % (Auto) 77.2 H, Lymph % (Auto) 11.6 L, [place] % (Auto) 8.7, Eos % (Auto) 1.5, Baso % (Auto) 0.3, Absolute Neuts (auto) 7.5, Absolute Lymphs (auto) 1.13, Nucleated RBC % 0 03/25/20 06:04: Sodium 138, Potassium 3.3 L, Chloride 102, Carbon Dioxide 30.0, Anion Gap 6, BUN 8, Creatinine 0.46 L, Estim Creat Clear Calc 35.99, Est GFR (MDRD) Af Amer 171, Est GFR (MDRD) Non-Af 142, BUN/Creatinine Ratio 17.4, Glucose 107 H, Calcium 8.0 L, Magnesium 1.9, Total Bilirubin 0.70, AST 49 H, ALT 41, Alkaline Phosphatase 132 H, Total Protein 5.6 L, Albumin 2.1 L, Globulin 3.5, Albumin/Globulin Ratio 0.6 L 03/25/20 06:19: POC Glucose 100 Current Medications Albuterol Sulfate (Ventolin Aerosols) 2.5 mg INHALATION Q4H PRN PRN PRN Reason: Shortness of Breath/Wheezing Amlodipine Besylate (Norvasc) 10 mg PO DAILY [facility] Last Admin: 03/24/20 22:34 Dose: Not Given Documented by: Enoxaparin Sodium (Lovenox) 40 mg SC DAILY [facility] Last Admin: 03/24/20 08:43 Dose: Not Given Documented by: Hydralazine HCl (Apresoline Iv) 10 mg IV Q6H PRN PRN PRN Reason: for SBP>160 Last Admin: 03/24/20 20:03 Dose: 10 mg Documented by: Pantoprazole Sodium 40 mg/ (Sodium Chloride) 110 mls @ 330 mls/hr IV Q12 [facility] Last Infusion: 03/24/20 23:24 Dose: Infused Documented by: Cefepime HCl 1 gm/ Sodium (Chloride) 50 mls @ 100 mls/hr IV Q12 [facility] Last Infusion: 03/24/20 22:54 Dose: Infused Documented by: Metronidazole (Flagyl) 500 mg in 100 mls @ 100 mls/hr IV Q8 [facility] Last Infusion: 03/25/20 07:33 Dose: Infused Documented by: Sodium Chloride () 250 mls @ 15 mls/hr IV .[id number] PRN PRN Reason: Saline Flush Last Infusion: 03/23/20 01:23 Dose: Infused Documented by: Sodium Chloride () 250 mls @ 15 mls/hr IV .[id number] PRN PRN Reason: Additional IVPB Infusion Lactated Ringer's () 1,000 mls @ 50 mls/hr IV .Q20H [facility] Last Infusion: 03/25/20 07:34 Dose: 50 mls/hr Documented by: Insulin Human Lispro (Humalog Kwikpen (Bkc)) 0 unit SC Q6 [facility]; Protocol Last Admin: 03/25/20 06:21 Dose: Not Given Documented by: Losartan Potassium (Cozaar) 50 mg PO DAILY [facility] Last Admin: 03/24/20 22:34 Dose: Not Given Documented by: Metoprolol Tartrate (Lopressor (Beta José Luis)) 25 mg PO BID [facility] Last Admin: 03/24/20 22:46 Dose: 25 mg Documented by: Morphine Sulfate () 2 mg IV Q3H PRN PRN PRN Reason: Pain Score 6-05/24 Last Admin: 03/25/20 02:32 Dose: 2 mg Documented by: Ondansetron HCl (Zofran) 4 mg IV Q8H PRN PRN PRN Reason: NAUSEA/VOMITING Last Admin: 03/25/20 02:43 Dose: 4 mg Documented by: Potassium Chloride (K-Dur) [facility]q [facility] Last Admin: 03/25/20 08:07 Dose: 20 meq Documented by: Promethazine HCl (Phenergan) 6.25 mg IV Q6H PRN PRN PRN Reason: NAUSEA/VOMITING Last Admin: 03/21/20 07:31 Dose: 6.25 mg Documented by: Sodium Chloride () 10 - 40 ml IV UD PRN PRN Reason: SALINE FLUSH Last Admin: 03/25/20 02:32 Dose: 10 ml Documented by: Zolpidem Tartrate (Ambien (Generic)) 5 mg PO QHS PRN PRN PRN Reason: INSOMNIA Last Admin: 03/23/20 23:17 Dose: 5 mg Documented by: STROKE Vital Signs/Narrative: Vital Signs Temp Pulse Resp BP Pulse Ox 03/25/20 08:20 98.4 F 73 16 149/50 H 96 03/25/20 07:32 72 03/25/20 07:11 95 Medical Necessity - Tobacco Use Smoking Status: Never smoker Assessment/Plan All Active Problems Gallstone pancreatitis (Acute) Acute Gallstone Pancreatitis with suspected cholangitis -POD 0 from [facility] with cholangiogram today 03/24 -had ERCP with sphincterotomy done 03/21 -Abx completed -WBC count has normalized -d/c IVF -to continue CLD per GS -add oxy po for pain -GS following Acute Hypoxic/Hypercapnic Respiratory Failure 2/2 JOSIE and Narcotics post- operatively -pt somnolent continually post-op and did receive 12 mg of morphine in PACU -has untreated JOSIE at baseline -ABG showed mild respiratory acidosis with pCO2 of 52 and pH of 7.34 -better this am with nomalized pH and pCO2 to 46 -weaned to 1.5 L nasal cannula with SpO2 96% -wean as able Hypokalemia -40 mEq PO and recheck in am -check am mag DM-2 Controlled -A1c is 6.6 -BGT here good -SSI only for now -take metformin at home HTN -Continue amlodipine 10 mg, metoprolol 25 mg BID and Losartan as substitution for home ARB -restart HCTZ Hypothyroidism -continue Synthroid JOSIE -untreated at baseline -CPAP at HS -8 cmH2O Asthma -weaned to 1.5 L -wean as able to no O2 as pt is not dependent at home -wean IVF and restart home diuretic (HCTZ as able) -nebs -IS HPL -restart home statin GERD -PPI IV for now DVT prophylaxis -Lovenox Code Status -Full code Inpatient E&M: 35288 Subs Hosp L3
[2020-03-25] MEDS: Polyethylene Glycol 3350 17 GM PACKET PO (10:12)
[2020-03-25] MEDS: oxyCODONE 5 MG Tablet PO ×2 (10:13→18:30)
[2020-03-25] MEDS: Metoprolol Tartrate 25 MG Tablet PO ×2 (10:16→21:35)
[2020-03-25] MEDS: Losartan Potassium 50 MG Tablet PO (10:16)
[2020-03-25] MEDS: Enoxaparin 40 MG/0.4 ML Syringe SC (10:17)
[2020-03-25] MEDS: amLODIPine 10 MG Tablet PO (10:17)
[2020-03-25 11:46] LABS: Bedside Glucose 164 mg/dL (70-110)
[2020-03-25] MEDS: Insulin Lispro 100 UNIT/ML INSULN.PEN SC (11:57)
[2020-03-25] MEDS: Albuterol 2.5 MG/3 ML VIAL.NEB. INHALATION ×2 (12:13→20:05)
[2020-03-25 18:31] LABS: Bedside Glucose 134 mg/dL (70-110)
[2020-03-25] MEDS: hydrALAZINE 20 MG/ML Vial 10 MG IV (19:50)
[2020-03-25 23:25] LABS: Bedside Glucose 138 mg/dL (70-110)
[2020-03-26] VITALS (14 sets, daily range): BP systolic 151–168; BP diastolic 64–85; PULSE 77–98; RESP 12–22; TEMP 36.7–37.2; O2SAT 93–99
[2020-03-26] MEDS: Ondansetron 4 MG/2 ML Vial IV (05:45)
[2020-03-26 06:00] LABS: Bedside Glucose 138 mg/dL (70-110)
--- NOTE | 2020-03-26 07:51 | PN.SURG_ITS ---
Patient Problems: Active and Suspected Problems Gallstone pancreatitis (Acute) Subjective: The patient had a lot of nausea this morning. She is passing flatus and had 2 liquid bowel movements. She is still having epigastric pain as well. - Physical Exam Vitals/I&O's: Vital Signs Temp Pulse Resp BP Pulse Ox 98.1 F 81 16 154/85 H 99 03/26/20 02:00 03/26/20 03:07 03/26/20 02:00 03/26/20 02:00 03/26/20 02:00 Oxygen Flow Rate (L/min) 2 Oxygen Delivery Method Bi-pap Weight: 190 lb 7.67 oz Body Mass Index (BMI) 37.2 Finger Stick Blood Glucose 109 Intake and Output for Last 24 Hours 03/24/20 03/25/20 03/26/20 23:59 23:59 23:59 Intake Total 3010.00 / 3370.00 3682.5 / 3682.5 Output Total 1300 / 2100 1900 / 1900 850 / 850 Balance 1710.00 / 1270.00 1782.5 / 1782.5 -850 / -850 General: Alert, Oriented x3 Lungs: Normal air movement Abdomen: Soft, Tender Laboratory Results 03/25/20 11:39: POC Glucose 164 H 03/25/20 18:24: POC Glucose 134 H 03/25/20 23:19: POC Glucose 138 H 03/26/20 05:44: POC Glucose 138 H Current Medications Albuterol Sulfate (Ventolin Aerosols) 2.5 mg INHALATION Q4H PRN PRN PRN Reason: Shortness of Breath/Wheezing Last Admin: 03/25/20 20:05 Dose: 2.5 mg Documented by: Amlodipine Besylate (Norvasc) 10 mg PO DAILY [facility] Last Admin: 03/25/20 10:17 Dose: 10 mg Documented by: Enoxaparin Sodium (Lovenox) 40 mg SC DAILY [facility] Last Admin: 03/25/20 10:17 Dose: 40 mg Documented by: Hydralazine HCl (Apresoline Iv) 10 mg IV Q6H PRN PRN PRN Reason: for SBP>160 Last Admin: 03/25/20 19:50 Dose: 10 mg Documented by: Pantoprazole Sodium 40 mg/ (Sodium Chloride) 110 mls @ 330 mls/hr IV Q12 [facility] Last Infusion: 03/25/20 21:56 Dose: Infused Documented by: Sodium Chloride () 250 mls @ 15 mls/hr IV .[id number] PRN PRN Reason: Saline Flush Last Infusion: 03/23/20 01:23 Dose: Infused Documented by: Sodium Chloride () 250 mls @ 15 mls/hr IV .[id number] PRN PRN Reason: Additional IVPB Infusion Insulin Human Lispro (Humalog Kwikpen (Bkc)) 0 unit SC Q6 [facility]; Protocol Last Admin: 03/26/20 06:03 Dose: Not Given Documented by: Losartan Potassium (Cozaar) 50 mg PO DAILY [facility] Last Admin: 03/25/20 10:16 Dose: 50 mg Documented by: Metoprolol Tartrate (Lopressor (Beta José Luis)) 25 mg PO BID [facility] Last Admin: 03/25/20 21:35 Dose: 25 mg Documented by: Morphine Sulfate () 2 mg IV Q3H PRN PRN PRN Reason: Pain Score 6-10/10 Last Admin: 03/25/20 02:32 Dose: 2 mg Documented by: Ondansetron HCl (Zofran) 4 mg IV Q8H PRN PRN PRN Reason: NAUSEA/VOMITING Last Admin: 03/26/20 05:45 Dose: 4 mg Documented by: Oxycodone HCl (Oxyir) 5 mg PO Q6H PRN PRN PRN Reason: Pain Score 6-10/10 Last Admin: 03/25/20 18:30 Dose: 5 mg Documented by: Polyethylene Glycol (Miralax) 17 gm PO DAILY [facility] Last Admin: 03/25/20 10:12 Dose: 17 gm Documented by: Promethazine HCl (Phenergan) 6.25 mg IV Q6H PRN PRN PRN Reason: NAUSEA/VOMITING Last Admin: 03/21/20 07:31 Dose: 6.25 mg Documented by: Sodium Chloride () 10 - 40 ml IV UD PRN PRN Reason: SALINE FLUSH Last Admin: 03/25/20 02:32 Dose: 10 ml Documented by: Zolpidem Tartrate (Ambien (Generic)) 5 mg PO QHS PRN PRN PRN Reason: INSOMNIA Last Admin: 03/23/20 23:17 Dose: 5 mg Documented by: Medical Necessity - Tobacco Use Smoking Status: Never smoker Assessment/Plan All Active Problems Gallstone pancreatitis (Acute) 74-year-old female status post laparoscopic cholecystectomy for gallstone pancreatitis 1. The patient is still having pain in the epigastric region and she is still having nausea. She is passing flatus and liquid bowel movements. Patient may be still having residual inflammation from her pancreatitis. Continue PPI and clear liquids until pain and nausea resolved and then she may be advanced to a full liquid diet. Trevon Vee MD Pager: [facility] [address] [place] [address] [address] [place] [address] Office:
--- NOTE | 2020-03-26 09:03 | PCM.PN.HOSP ---
Patient Problems: Active and Suspected Problems Gallstone pancreatitis (Acute) Subjective: Some nausea this am but no emesis and tolerating CLD. Having BM and flatus. Some BRB in stool yesterday. Dr. Barahona aware. C/O leg hurting from all of the edema. Vitals/I&O's: Vital Signs Temp Pulse Resp BP Pulse Ox 98.1 F 81 16 154/85 H 98 03/26/20 02:00 03/26/20 03:07 03/26/20 02:00 03/26/20 02:00 03/26/20 07:00 Oxygen Flow Rate (L/min) 3 Oxygen Delivery Method Nasal Cannula Weight: 86.4 kg Body Mass Index (BMI) 37.2 Finger Stick Blood Glucose 109 Intake and Output for Last 24 Hours 03/24/20 03/25/20 03/26/20 23:59 23:59 23:59 Intake Total 3010.00 / 3370.00 3682.5 / 3682.5 Output Total 1300 / 2100 1900 / 1900 850 / 850 Balance 1710.00 / 1270.00 1782.5 / 1782.5 -850 / -850 General: Alert, Oriented x3, Cooperative, No apparent distress, Well developed, Well nourished, - - Obese WF, sitting up in a chair doing IS HEENT: Atraumatic, PERRLA, EOMI, Normocephalic, EAC Clear Oral: Moist Mucosa, No Gingival or Mucosal Lesions/ Ulcerations, - - Mallampati 3 Neck: Supple, No JVD, Trachea Midline, Thyroid Normal Size and Texture Lungs: Clear to auscultation, No rhonchi, No wheeze, No rales, Diminished - bases B Cardiovascular: Regular rate, Regular Rhythm, Normal S1, Normal S2, No murmurs, No Ectopic Activity, No rub noted, No Gallop Abdomen: Bowel Sounds Present, Soft, Non-Distended, Tender - at scope sites Extremities: No clubbing, No cyanosis, Capillary Refill Less than 3 Seconds, Edema - 1-2+, Tenderness Skin: No rashes, No breakdown Musculoskeletal: No Tenderness to Palpation of Joints or Extremities, No Muscle Wasting Lymphatic: No Cervical, Supraclavicular, or Inguinal Adenopathy Neurological: Cranial nerves II-XII grossly intact, Neuro grossly intact, Muscle tone normal, Sensory exam intact to light touch and pain, Coordination normal Psych/Mental Status: Normal Affect, Appropriate, - - talkative and very pleasant, Alert and oriented to time, place, person, mood and affect Laboratory Results 03/25/20 11:39: POC Glucose 164 H 03/25/20 18:24: POC Glucose 134 H 03/25/20 23:19: POC Glucose 138 H 03/26/20 05:44: POC Glucose 138 H Current Medications Albuterol Sulfate (Ventolin Aerosols) 2.5 mg INHALATION Q4H PRN PRN PRN Reason: Shortness of Breath/Wheezing Last Admin: 03/25/20 20:05 Dose: 2.5 mg Documented by: Amlodipine Besylate (Norvasc) 10 mg PO DAILY [facility] Last Admin: 03/25/20 10:17 Dose: 10 mg Documented by: Enoxaparin Sodium (Lovenox) 40 mg SC DAILY [facility] Last Admin: 03/25/20 10:17 Dose: 40 mg Documented by: Hydralazine HCl (Apresoline Iv) 10 mg IV Q6H PRN PRN PRN Reason: for SBP>160 Last Admin: 03/25/20 19:50 Dose: 10 mg Documented by: Pantoprazole Sodium 40 mg/ (Sodium Chloride) 110 mls @ 330 mls/hr IV Q12 [facility] Last Infusion: 03/25/20 21:56 Dose: Infused Documented by: Sodium Chloride () 250 mls @ 15 mls/hr IV .[id number] PRN PRN Reason: Saline Flush Last Infusion: 03/23/20 01:23 Dose: Infused Documented by: Sodium Chloride () 250 mls @ 15 mls/hr IV .[id number] PRN PRN Reason: Additional IVPB Infusion Insulin Human Lispro (Humalog Kwikpen (Bkc)) 0 unit SC Q6 [facility]; Protocol Last Admin: 03/26/20 06:03 Dose: Not Given Documented by: Losartan Potassium (Cozaar) 50 mg PO DAILY [facility] Last Admin: 03/25/20 10:16 Dose: 50 mg Documented by: Metoprolol Tartrate (Lopressor (Beta José Luis)) 25 mg PO BID [facility] Last Admin: 03/25/20 21:35 Dose: 25 mg Documented by: Morphine Sulfate () 2 mg IV Q3H PRN PRN PRN Reason: Pain Score 6-10/10 Last Admin: 03/25/20 02:32 Dose: 2 mg Documented by: Ondansetron HCl (Zofran) 4 mg IV Q8H PRN PRN PRN Reason: NAUSEA/VOMITING Last Admin: 03/26/20 05:45 Dose: 4 mg Documented by: Oxycodone HCl (Oxyir) 5 mg PO Q6H PRN PRN PRN Reason: Pain Score 6-10/10 Last Admin: 03/25/20 18:30 Dose: 5 mg Documented by: Polyethylene Glycol (Miralax) 17 gm PO DAILY [facility] Last Admin: 03/25/20 10:12 Dose: 17 gm Documented by: Promethazine HCl (Phenergan) 6.25 mg IV Q6H PRN PRN PRN Reason: NAUSEA/VOMITING Last Admin: 03/21/20 07:31 Dose: 6.25 mg Documented by: Sodium Chloride () 10 - 40 ml IV UD PRN PRN Reason: SALINE FLUSH Last Admin: 03/25/20 02:32 Dose: 10 ml Documented by: Zolpidem Tartrate (Ambien (Generic)) 5 mg PO QHS PRN PRN PRN Reason: INSOMNIA Last Admin: 03/23/20 23:17 Dose: 5 mg Documented by: STROKE Vital Signs/Narrative: Vital Signs Pulse Ox 03/26/20 07:00 98 Medical Necessity - Tobacco Use Smoking Status: Never smoker Assessment/Plan All Active Problems Gallstone pancreatitis (Acute) Acute Gallstone Pancreatitis with suspected cholangitis -POD 2 from [facility] with cholangiogram today 03/24 -had ERCP with sphincterotomy done 03/21 -Abx completed -to continue CLD per GS with nausea today -oxy po for pain -GS following Acute Hypoxic/Hypercapnic Respiratory Failure 2/2 JOSIE and Narcotics post-operatively -pt somnolent continually post-op and did receive 12 mg of morphine in PACU -has untreated JOSIE at baseline -ABG showed mild respiratory acidosis with pCO2 of 52 and pH of 7.34 - repeat ABG am 03/25 was better with normalized pH and pCO2 to 46 -now on 3 L nasal cannula with SpO2 98% -wean as able -CXR today -Lasix x 1 dose today -IS B LE edema -volume overload suspected -lasix 40 mg x 1 dose today -check US BRBPR -once yesterday with BM -has h/o hemorrhoids -CBC in am and monitor -no further bleeding Hypokalemia -am BMP DM-2 Controlled -A1c is 6.6 -BGT here good -SSI to q AC -take metformin at home HTN -Continue amlodipine 10 mg, metoprolol 25 mg BID, HCTZ 12.5 and Losartan as substitution for home ARB -will increase Losartan to 100 mg Hypothyroidism -continue Synthroid JOSIE -untreated at baseline -CPAP at HS -8 cmH2O Asthma -wean O2 as able -wean as able to no O2 as pt is not dependent at home -wean IVF and restart home diuretic (HCTZ as able) -nebs -IS HPL -statin GERD -PPI to PO DVT prophylaxis -Lovenox Code Status -Full code Inpatient E&M: 51910 Subs Hosp L3
--- NOTE | 2020-03-26 09:34 | VDLE_ITS ---
Reason For Study: Swelling RIGHT LEFT GSV is normal. GSV is normal. CFV is compressible, spontaneous, phasic, CFV is compressible, spontaneous, phasic, competent and demonstrates normal competent, and demonstrates normal augmentation. augmentation. FV is compressible, spontaneous, phasic, FV is compressible, spontaneous, phasic, competent and demonstrates normal competent and demonstrates normal augmentation. augmentation. POP V is compressible, spontaneous, phasic, POP V is compressible, spontaneous, phasic, competent and demonstrates normal competent and demonstrates normal augmentation. augmentation. T/P Trunk is compressible. T/P Trunk is compressible. PTV is compressible. PTV is compressible. RT PerV is compressible. LT PerV is compressible. Procedure Exam performed in department. A preliminary report was called and/or faxed to [facility]. Interpretation Summary No evidence for acute deep venous thrombosis bilateral lower extremities with patent and compressible bilateral great saphenous veins. Ordering Physician: Any Preciado Referring Physician: Anabella Pastrana Performed By: Laura Mcfarlane, TINO, RVT
--- NOTE | 2020-03-26 09:35 | RAD_ITS ---
STUDY: X-RAY CHEST REASON FOR EXAM: Female, 74 years old. hypoxia, pancreatitis TECHNIQUE: Single AP portable view of the chest. COMPARISON: Comparison is made with prior study dated 03/22/2020. FINDINGS: EKG electrodes are seen. Mild degree of residual bibasilar atelectasis. There has been improvement as compared to prior study. Persistent blunting of the costophrenic angles bilaterally. Normal size heart. Normal mediastinum and robert. Normal visualized pulmonary arteries. Normal visualized aortic arch and descending thoracic aorta. There is a dextroscoliosis of the thoracic spine. Normal visualized ribs, clavicles, and shoulders. There is no demonstrated abnormality of the visualized soft tissue structures of the upper abdomen. RAD/Chest 1 View (Portable) IMPRESSION: Mild residual bibasilar atelectasis. There has been improvement as compared to prior study. Electronically Signed: Luis Lynne, at 11:02 EDT , Service support ,
[2020-03-26] MEDS: Furosemide 40 MG/4 ML Vial IV (11:17)
[2020-03-26] MEDS: Metoprolol Tartrate 25 MG Tablet PO ×2 (11:23→22:38)
[2020-03-26] MEDS: Enoxaparin 40 MG/0.4 ML Syringe SC (11:24)
[2020-03-26] MEDS: amLODIPine 10 MG Tablet PO (11:24)
[2020-03-26] MEDS: Polyethylene Glycol 3350 17 GM PACKET PO (11:50)
[2020-03-26 12:00] LABS: Bedside Glucose 136 mg/dL (70-110)
--- NOTE | 2020-03-26 12:03 | CT_ITS ---
STUDY: CT ABDOMEN AND PELVIS WITH CONTRAST REASON FOR EXAM: Female, 74 years old. NAUSEA/UPPER ABDOMEN PAIN. Cholecystectomy 03/24/20. Hx of GERD, HTN, diabetes-Insulin RADIATION DOSAGE (If Supplied By Facility): CTDIvol = ( 12.41 ) mGy, DLP = ( 1277.23 ) mGycm TECHNIQUE: Transaxial images were obtained from the dome of the diaphragm to the symphysis pubis with oral contrast. Oral and amp; IV Gastrografin and amp; 100mL Isovue-300 was administered. Sagittal and coronal images were reconstructed. Individualized dose optimization techniques were used for this CT. COMPARISON: Comparison is made with prior examination dated 03/19/2020. FINDINGS: Minimal degree of increased markings at the lung bases suggestive of atelectasis and scarring. Coronary artery calcification. Normal liver. There now is evidence of a small amount of the perihepatic and perisplenic fluid. The patient is status post cholecystectomy. Postoperative changes are seen within the gallbladder fossa. Normal spleen. There is diffuse enlargement of the pancreas with betina-pancreatic edema suggesting acute pancreatitis. Normal bilateral adrenal glands. Normal right kidney. Normal left kidney. There is a small hiatal hernia. Normal small intestine. There are multiple colonic diverticula consistent with diverticulosis. There is non-visualization of the appendix. There is scattered atherosclerotic calcification of the abdominal aorta, without a demonstrated aneurysm. Normal inferior vena cava. Normal retroperitoneum. Normal urinary bladder. Moderate amount of fluid is seen in the cul-de-sac. The patient is status post hysterectomy. Postoperative changes are seen in the periumbilical region most likely secondary to the trocar placement for laparoscopic surgery. There are diffuse degenerative changes of the visualized lumbar spine. Levoscoliosis. CT/Abdomen/Pelvis WITH Contrast IMPRESSION: Mild degree of atelectasis/scarring at the lung bases. Small amount of perihepatic and perisplenic fluid as well as fluid in the pelvis. Findings ET tube with the acute pancreatitis with peripancreatic inflammatory changes and thickening of the anterior pararenal spaces. Electronically Signed: Luis Lynne, at 14:57 EDT , Service support ,
[2020-03-26] MEDS: Losartan Potassium 100 MG Tablet PO (12:35)
[2020-03-26 16:21] LABS: Bedside Glucose 124 mg/dL (70-110)
--- NOTE | 2020-03-26 21:40 | NURSING ---
Oxygen applied at 1L & pulse ox now 96%. Pt had been sleeping with her mouth open when I entered room ...sats were in the upper 80's prior to application of oxygen. Marisa FISHER aware.
[2020-03-26] MEDS: Albuterol 2.5 MG/3 ML VIAL.NEB. INHALATION (23:07)
[2020-03-27] VITALS (14 sets, daily range): BP systolic 154–159; BP diastolic 69–81; PULSE 73–82; RESP 12–20; TEMP 36.8–37.1; O2SAT 93–100
[2020-03-27 06:06] LABS: Absolute Neutrophil Count 6.2 X10^3/uL (2.0-7.7); Basophil# 0.04 X10^3/uL; Basophil% 0.5 % (0-1); Eosinophil# 0.15 X10^3/uL; Eosinophils% 1.7 % (0-5); Hematocrit 31.2 % (37-47); Hemoglobin 10.1 g/dL (12.0-15.0); Lymphocyte % 16.1 % (19-41); Mean Corp Hgb Conc 32.4 g/dL (32-36); Mean Corpuscular Hgb 27.2 pg (27.0-32.0); Mean Corpuscular Volume 84.1 fL (81-99); Mean Platelet Vol. 8.9 fl (6.2-12.0); Monocyte# 0.82 X10^3/uL; Monocyte% 9.4 % (0-10); NRBC Flagged by Analyzer 0 % (0-5); Neutrophil # 6.15 X10^3/uL (2.7-7.7); Neutrophil % 70.5 % (47-70); Platelet Count 368 K/mm3 (150-450); RBC Distribution Width SD 45.6 fl (35.1-43.9); Red Blood Count 3.71 M/mm3 (4.2-5.4); White Blood Count 8.7 K/mm3 (4.4-11.0)
[2020-03-27 06:38] LABS: ALB/GLOB Ratio 0.7 RATIO (0.9-2.4); AST(SGOT) 21 U/L (15-37); Alanine Aminotransfer ALT/SGPT 35 U/L (13-56); Albumin, Serum 2.4 g/dL (3.2-5.0); Alkaline Phosphatase 111 U/L (45-117); Anion Gap 6 (5-15); BUN 3 mg/dL (7-18); Chloride 97 mmol/L (98-107); Creatinine, Serum 0.43 mg/dL (0.55-1.02); EST Glomerular Filtration Rate 153 mL/min (>60); Est Glom Filt Rate - Afr Amer 186 mL/min (>60); Estimated Creatinine Clearance 35.99 ml/min; Globulin 3.6 g/dL (2.2-4.2); Glucose 137 mg/dL (74-106); Potassium 2.9 mmol/L (3.5-5.1); Sodium Level 137 mmol/L (136-145)
[2020-03-27] MEDS: Insulin Lispro 100 UNIT/ML INSULN.PEN SC ×3 (06:46→15:40)
[2020-03-27 06:56] LABS: Bedside Glucose 154 mg/dL (70-110)
--- NOTE | 2020-03-27 08:12 | PCM.PN.SRG ---
Patient Problems: Active and Suspected Problems Gallstone pancreatitis (Acute) Subjective: Patient had nausea and upset stomach after trying full liquids yesterday. She also reports that she is still having bright red bleeding per rectum - Physical Exam Vitals/I&O's: Vital Signs Temp Pulse Resp BP Pulse Ox 98.3 F 76 16 159/69 H 96 03/27/20 03:30 03/27/20 04:01 03/27/20 03:30 03/27/20 03:30 03/27/20 04:41 Oxygen Flow Rate (L/min) 2 Oxygen Delivery Method Nasal Cannula Weight: 190 lb 7.67 oz Body Mass Index (BMI) 37.2 Finger Stick Blood Glucose 109 Intake and Output for Last 24 Hours 03/25/20 03/26/20 03/27/20 23:59 23:59 23:59 Intake Total 3682.5 / 3682.5 110 / 230 430 / 430 Output Total 1900 / 1900 850 / 1350 1125 / 1125 Balance 1782.5 / 1782.5 -740 / -1120 -695 / -695 General: Alert, Oriented x3 Lungs: Normal air movement Cardiovascular: Regular rate, Regular Rhythm Abdomen: Soft, Non-Distended Laboratory Results 03/26/20 11:33: POC Glucose 136 H 03/26/20 16:11: POC Glucose 124 H 03/27/20 05:55: WBC 8.7, RBC 3.71 L, Hgb 10.1 L, Hct 31.2 L, MCV 84.1, MCH 27.2, MCHC 32.4, RDW Std Deviation 45.6 H, RDW Coeff of Clarence 15.0 H, Plt Count 368, MPV 8.9, Immature Gran % (Auto) 1.800 H, Neut % (Auto) 70.5 H, Lymph % (Auto) 16.1 L, [place] % (Auto) 9.4, Eos % (Auto) 1.7, Baso % (Auto) 0.5, Absolute Neuts (auto) 6.2, Absolute Lymphs (auto) 1.40, Nucleated RBC % 0 03/27/20 05:55: Sodium 137, Potassium 2.9 L, Chloride 97 L, Carbon Dioxide 34.0 H, Anion Gap 6, BUN 3 L, Creatinine 0.43 L, Estim Creat Clear Calc 35.99, Est GFR (MDRD) Af Amer 186, Est GFR (MDRD) Non-Af 153, BUN/Creatinine Ratio 7.0 L, Glucose 137 H, Calcium 8.0 L, Total Bilirubin 0.80, AST 21, ALT 35, Alkaline Phosphatase 111, Total Protein 6.0 L, Albumin 2.4 L, Globulin 3.6, Albumin/Globulin Ratio 0.7 L 03/27/20 06:42: POC Glucose 154 H Current Medications Albuterol Sulfate (Ventolin Aerosols) 2.5 mg INHALATION Q4H PRN PRN PRN Reason: Shortness of Breath/Wheezing Last Admin: 03/26/20 23:07 Dose: 2.5 mg Documented by: Amlodipine Besylate (Norvasc) 10 mg PO DAILY [facility] Last Admin: 03/26/20 11:24 Dose: 10 mg Documented by: Enoxaparin Sodium (Lovenox) 40 mg SC DAILY [facility] Last Admin: 03/26/20 11:24 Dose: 40 mg Documented by: Hydralazine HCl (Apresoline Iv) 10 mg IV Q6H PRN PRN PRN Reason: for SBP>160 Last Admin: 03/25/20 19:50 Dose: 10 mg Documented by: Pantoprazole Sodium 40 mg/ (Sodium Chloride) 110 mls @ 330 mls/hr IV Q12 [facility] Last Infusion: 03/27/20 00:44 Dose: Infused Documented by: Sodium Chloride () 250 mls @ 15 mls/hr IV .[id number] PRN PRN Reason: Saline Flush Last Infusion: 03/23/20 01:23 Dose: Infused Documented by: Sodium Chloride () 250 mls @ 15 mls/hr IV .[id number] PRN PRN Reason: Additional IVPB Infusion Insulin Human Lispro (Humalog Kwikpen (Bkc)) 0 unit SC TIDAC [facility]; Protocol Last Admin: 03/27/20 06:46 Dose: 1 u Documented by: Losartan Potassium (Cozaar) 100 mg PO DAILY [facility] Last Admin: 03/26/20 12:35 Dose: 100 mg Documented by: Metoprolol Tartrate (Lopressor (Beta José Luis)) 25 mg PO BID [facility] Last Admin: 03/26/20 22:38 Dose: 25 mg Documented by: Morphine Sulfate () 2 mg IV Q3H PRN PRN PRN Reason: Pain Score 6-10/10 Last Admin: 03/25/20 02:32 Dose: 2 mg Documented by: Ondansetron HCl (Zofran) 4 mg IV Q8H PRN PRN PRN Reason: NAUSEA/VOMITING Last Admin: 03/26/20 05:45 Dose: 4 mg Documented by: Oxycodone HCl (Oxyir) 5 mg PO Q6H PRN PRN PRN Reason: Pain Score 6-10/10 Last Admin: 03/25/20 18:30 Dose: 5 mg Documented by: Polyethylene Glycol (Miralax) 17 gm PO DAILY [facility] Last Admin: 03/26/20 11:50 Dose: 17 gm Documented by: Promethazine HCl (Phenergan) 6.25 mg IV Q6H PRN PRN PRN Reason: NAUSEA/VOMITING Last Admin: 03/21/20 07:31 Dose: 6.25 mg Documented by: Sodium Chloride () 10 - 40 ml IV UD PRN PRN Reason: SALINE FLUSH Last Admin: 03/25/20 02:32 Dose: 10 ml Documented by: Zolpidem Tartrate (Ambien (Generic)) 5 mg PO QHS PRN PRN PRN Reason: INSOMNIA Last Admin: 03/23/20 23:17 Dose: 5 mg Documented by: Medical Necessity - Tobacco Use Smoking Status: Never smoker Assessment/Plan All Active Problems Gallstone pancreatitis (Acute) 74-year-old female with pancreatitis 1. Patient has had ERCP and laparoscopic cholecystectomy. The patient is having bright red bleeding per rectum which she attributes to her hemorrhoids. She says this happened in the past. She had an episode of this yesterday morning as well as this morning. Hemoglobin is stable. I believe if this was happening from the ERCP site it would be darker so I do believe this could be due to her hemorrhoids. 2. Patient is also having nausea and epigastric pain still. I tried full liquid diets for her yesterday evening but this caused her to have upset stomach and nausea. Continue clear liquids and once she is tolerating better she may advance again to try a full liquid diet. Trevon Vee MD Pager: [facility] [address] [place] [address] [address] [place] [address] Office:
[2020-03-27] MEDS: Albuterol 2.5 MG/3 ML VIAL.NEB. INHALATION ×2 (08:15→15:06)
--- NOTE | 2020-03-27 09:07 | PCM.PN.HOSP ---
Patient Problems: Active and Suspected Problems Gallstone pancreatitis (Acute) Reason for Visit: acute gallstone pancreatitis with suspected cholangitis Subjective: 74-year-old lady admitted with acute gallstone pancreatitis with suspected cholangitis -03/27/2020: Patient complained of bright red blood per rectum which she attributed to hemorrhoids Objective: GENERAL: cooperative HEENT: Atraumatic; EYES; Anicteric, Normal Conjunctiva NECK; supple, normal thyroid, RESPIRATORY: Diminished to auscultation CARDIOVASCULAR: Regular S1 S2, GI: soft, normoactive bowel sounds, : No Renal angle tenderness; EXTREMITIES: No edema, no clubbing, MUSCULOSKELETAL: no muscle waisting NEURO: Awake; no lateralizing signs. SKIN: No Rash PSYCH; Flat affect Vitals/I&O's: Vital Signs Temp Pulse Resp BP Pulse Ox 98.3 F 80 13 159/69 H 93 03/27/20 03:30 03/27/20 08:16 03/27/20 08:16 03/27/20 03:30 03/27/20 08:27 Oxygen Flow Rate (L/min) 1 Oxygen Delivery Method Nasal Cannula Weight: 86.4 kg Body Mass Index (BMI) 37.2 Finger Stick Blood Glucose 109 Intake and Output for Last 24 Hours 03/25/20 03/26/20 03/27/20 23:59 23:59 23:59 Intake Total 3682.5 / 3682.5 110 / 230 430 / 430 Output Total 1900 / 1900 850 / 1350 1125 / 1125 Balance 1782.5 / 1782.5 -740 / -1120 -695 / -695 Laboratory Results 03/26/20 11:33: POC Glucose 136 H 03/26/20 16:11: POC Glucose 124 H 03/27/20 05:55: WBC 8.7, RBC 3.71 L, Hgb 10.1 L, Hct 31.2 L, MCV 84.1, MCH 27.2, MCHC 32.4, RDW Std Deviation 45.6 H, RDW Coeff of Clarence 15.0 H, Plt Count 368, MPV 8.9, Immature Gran % (Auto) 1.800 H, Neut % (Auto) 70.5 H, Lymph % (Auto) 16.1 L, Stanton % (Auto) 9.4, Eos % (Auto) 1.7, Baso % (Auto) 0.5, Absolute Neuts (auto) 6.2, Absolute Lymphs (auto) 1.40, Nucleated RBC % 0 03/27/20 05:55: Sodium 137, Potassium 2.9 L, Chloride 97 L, Carbon Dioxide 34.0 H, Anion Gap 6, BUN 3 L, Creatinine 0.43 L, Estim Creat Clear Calc 35.99, Est GFR (MDRD) Af Amer 186, Est GFR (MDRD) Non-Af 153, BUN/Creatinine Ratio 7.0 L, Glucose 137 H, Calcium 8.0 L, Total Bilirubin 0.80, AST 21, ALT 35, Alkaline Phosphatase 111, Total Protein 6.0 L, Albumin 2.4 L, Globulin 3.6, Albumin/Globulin Ratio 0.7 L 03/27/20 06:42: POC Glucose 154 H Current Medications Albuterol Sulfate (Ventolin Aerosols) 2.5 mg INHALATION Q4H PRN PRN PRN Reason: Shortness of Breath/Wheezing Last Admin: 03/27/20 08:15 Dose: 2.5 mg Documented by: Amlodipine Besylate (Norvasc) 10 mg PO DAILY [facility] Last Admin: 03/26/20 11:24 Dose: 10 mg Documented by: Enoxaparin Sodium (Lovenox) 40 mg SC DAILY [facility] Last Admin: 03/26/20 11:24 Dose: 40 mg Documented by: Hydralazine HCl (Apresoline Iv) 10 mg IV Q6H PRN PRN PRN Reason: for SBP>160 Last Admin: 03/25/20 19:50 Dose: 10 mg Documented by: Pantoprazole Sodium 40 mg/ (Sodium Chloride) 110 mls @ 330 mls/hr IV Q12 [facility] Last Infusion: 03/27/20 00:44 Dose: Infused Documented by: Sodium Chloride () 250 mls @ 15 mls/hr IV .[id number] PRN PRN Reason: Saline Flush Last Infusion: 03/23/20 01:23 Dose: Infused Documented by: Sodium Chloride () 250 mls @ 15 mls/hr IV .[id number] PRN PRN Reason: Additional IVPB Infusion Insulin Human Lispro (Humalog Kwikpen (Bkc)) 0 unit SC TIDAC [facility]; Protocol Last Admin: 03/27/20 06:46 Dose: 1 u Documented by: Losartan Potassium (Cozaar) 100 mg PO DAILY [facility] Last Admin: 03/26/20 12:35 Dose: 100 mg Documented by: Metoprolol Tartrate (Lopressor (Beta José Luis)) 25 mg PO BID [facility] Last Admin: 03/26/20 22:38 Dose: 25 mg Documented by: Morphine Sulfate () 2 mg IV Q3H PRN PRN PRN Reason: Pain Score 6-10/10 Last Admin: 03/25/20 02:32 Dose: 2 mg Documented by: Ondansetron HCl (Zofran) 4 mg IV Q8H PRN PRN PRN Reason: NAUSEA/VOMITING Last Admin: 03/26/20 05:45 Dose: 4 mg Documented by: Oxycodone HCl (Oxyir) 5 mg PO Q6H PRN PRN PRN Reason: Pain Score 6-10/10 Last Admin: 03/25/20 18:30 Dose: 5 mg Documented by: Polyethylene Glycol (Miralax) 17 gm PO DAILY [facility] Last Admin: 03/26/20 11:50 Dose: 17 gm Documented by: Promethazine HCl (Phenergan) 6.25 mg IV Q6H PRN PRN PRN Reason: NAUSEA/VOMITING Last Admin: 03/21/20 07:31 Dose: 6.25 mg Documented by: Sodium Chloride () 10 - 40 ml IV UD PRN PRN Reason: SALINE FLUSH Last Admin: 03/25/20 02:32 Dose: 10 ml Documented by: Zolpidem Tartrate (Ambien (Generic)) 5 mg PO QHS PRN PRN PRN Reason: INSOMNIA Last Admin: 03/23/20 23:17 Dose: 5 mg Documented by: STROKE Vital Signs/Narrative: Vital Signs Pulse Resp Pulse Ox 03/27/20 08:27 93 03/27/20 08:16 80 13 96 Medical Necessity - Tobacco Use Smoking Status: Never smoker Assessment/Plan All Active Problems Gallstone pancreatitis (Acute) 74-year-old lady admitted with acute gallstone pancreatitis with suspected cholangitis 1. Acute gallstone pancreatitis with suspected cholangitis ?Patient underwent ERCP with sphincterotomy on 03/21/2020 and subsequently lap rajani with cholangiogram on 03/24/2020. 2. Acute hypoxic/hypercapnic respiratory failure ?This was attributed to narcotics postoperatively as well as obstructive sleep apnea 3. Bleeding per rectum Attributed to hemorrhoids managed conservatively 4. Hypokalemia ?Corrected per protocol 5. Diabetes mellitus type 2 -on sliding scale insulin 6. Essential hypertension - Blood pressure controlled, home medications continued with dose adjustment as needed 7. Dyslipidemia -Patient is on statin therapy, continued at home dose 8. Hypothyroidism - Patient is on levothyroxine home dose continued . Mild intermittent asthma ?Currently stable 10. GERD ?On PPI 11. DVT prophylaxis SC Lovenox Inpatient E&M: [id number] [facility] Hosp L2
[2020-03-27] MEDS: Metoprolol Tartrate 25 MG Tablet PO ×2 (09:24→21:16)
[2020-03-27] MEDS: Polyethylene Glycol 3350 17 GM PACKET PO (09:24)
[2020-03-27] MEDS: Losartan Potassium 100 MG Tablet PO (09:24)
[2020-03-27] MEDS: amLODIPine 10 MG Tablet PO (09:24)
[2020-03-27] MEDS: Enoxaparin 40 MG/0.4 ML Syringe SC (09:25)
[2020-03-27 10:55] LABS: Bedside Glucose 196 mg/dL (70-110)
[2020-03-27 15:56] LABS: Bedside Glucose 212 mg/dL (70-110)
[2020-03-27] MEDS: Potassium Chloride 10mEq/100mL 10 MEQ/100 ML IV.SOLN. 100 MEQ IV BOLUS ×2 (16:48→21:40)
[2020-03-27] MEDS: Potassium Chloride 10mEq/100mL 10 MEQ/100 ML IV.SOLN. 70 MEQ IV BOLUS ×2 (18:09→20:09)
[2020-03-28] VITALS (15 sets, daily range): BP systolic 141–166; BP diastolic 66–80; PULSE 65–90; RESP 12–20; TEMP 36.7–37.1; O2SAT 94–99
[2020-03-28 06:51] LABS: Bedside Glucose 143 mg/dL (70-110)
[2020-03-28 07:49] LABS: Hematocrit 34.1 % (37-47); Hemoglobin 10.9 g/dL (12.0-15.0); Mean Corpuscular Hgb 27.3 pg (27.0-32.0); Mean Corpuscular Volume 85.3 fL (81-99); Mean Platelet Vol. 8.7 fl (6.2-12.0); Platelet Count 432 K/mm3 (150-450); RBC Distribution Width CV 15.4 % (11.6-14.6); RBC Distribution Width SD 47.5 fl (35.1-43.9); White Blood Count 8.1 K/mm3 (4.4-11.0)
[2020-03-28 08:02] LABS: Anion Gap 5 (5-15); BUN 2 mg/dL (7-18); BUN/Creat Ratio 3.9 RATIO (10-20); Calcium,Total 8.5 mg/dL (8.5-10.1); Chloride 99 mmol/L (98-107); Creatinine, Serum 0.51 mg/dL (0.55-1.02); EST Glomerular Filtration Rate 125 mL/min (>60); Est Glom Filt Rate - Afr Amer 151 mL/min (>60); Estimated Creatinine Clearance 35.99 ml/min; Glucose 143 mg/dL (74-106); Magnesium 1.9 mg/dL (1.6-2.6); Potassium 3.8 mmol/L (3.5-5.1); Sodium Level 138 mmol/L (136-145)
--- NOTE | 2020-03-28 08:58 | PCM.PN.HOSP ---
Patient Problems: Active and Suspected Problems Gallstone pancreatitis (Acute) Reason for Visit: Gallstone pancreatitis Subjective: Patient scheduled to undergo upper GI dual contrast imaging studies in view of persistent abdominal discomfort Objective: GENERAL: cooperative HEENT: Atraumatic; EYES; Anicteric, Normal Conjunctiva NECK; supple, normal thyroid, RESPIRATORY: Diminished to auscultation CARDIOVASCULAR: Regular S1 S2, GI: soft, normoactive bowel sounds, : No Renal angle tenderness; EXTREMITIES: No edema, no clubbing, MUSCULOSKELETAL: no muscle waisting NEURO: Awake; no lateralizing signs. SKIN: No Rash PSYCH; Flat affect Vitals/I&O's: Vital Signs Temp Pulse Resp BP Pulse Ox 98.7 F 80 18 166/66 H 98 03/28/20 08:45 03/28/20 08:45 03/28/20 08:45 03/28/20 08:45 03/28/20 08:45 Oxygen Flow Rate (L/min) 2 Oxygen Delivery Method Room Air Weight: 84 kg Body Mass Index (BMI) 37.2 Finger Stick Blood Glucose 109 Intake and Output for Last 24 Hours 03/26/20 03/27/20 03/28/20 23:59 23:59 23:59 Intake Total 110 / 230 1581.75 / 1581.75 314.5 / 314.5 Output Total 850 / 1350 2225 / 2225 1050 / 1050 Balance -740 / -1120 -643.25 / -643.25 -735.5 / -735.5 Laboratory Results 03/27/20 10:43: POC Glucose 196 H 03/27/20 15:35: POC Glucose 212 H 03/28/20 06:44: POC Glucose 143 H 03/28/20 07:35: WBC 8.1, RBC 4.00 L, Hgb 10.9 L, Hct 34.1 L, MCV 85.3, MCH 27.3, MCHC 32.0, RDW Std Deviation 47.5 H, RDW Coeff of Clarence 15.4 H, Plt Count 432, MPV 8.7 03/28/20 07:35: Sodium 138, Potassium 3.8, Chloride 99, Carbon Dioxide 34.0 H, Anion Gap 5, BUN 2 L, Creatinine 0.51 L, Estim Creat Clear Calc 35.99, Est GFR (MDRD) Af Amer 151, Est GFR (MDRD) Non-Af 125, BUN/Creatinine Ratio 3.9 L, Glucose 143 H, Calcium 8.5, Magnesium 1.9 Current Medications Albuterol Sulfate (Ventolin Aerosols) 2.5 mg INHALATION Q4H PRN PRN PRN Reason: Shortness of Breath/Wheezing Last Admin: 03/27/20 15:06 Dose: 2.5 mg Documented by: Amlodipine Besylate (Norvasc) 10 mg PO DAILY [facility] Last Admin: 03/27/20 09:24 Dose: 10 mg Documented by: Enoxaparin Sodium (Lovenox) 40 mg SC DAILY [facility] Last Admin: 03/27/20 09:25 Dose: 40 mg Documented by: Hydralazine HCl (Apresoline Iv) 10 mg IV Q6H PRN PRN PRN Reason: for SBP>160 Last Admin: 03/25/20 19:50 Dose: 10 mg Documented by: Pantoprazole Sodium 40 mg/ (Sodium Chloride) 110 mls @ 330 mls/hr IV Q12 [facility] Last Infusion: 03/27/20 23:28 Dose: Infused Documented by: Sodium Chloride () 250 mls @ 15 mls/hr IV .[id number] PRN PRN Reason: Saline Flush Last Infusion: 03/28/20 06:50 Dose: Infused Documented by: Sodium Chloride () 250 mls @ 15 mls/hr IV .[id number] PRN PRN Reason: Additional IVPB Infusion Last Infusion: 03/27/20 23:11 Dose: 0 mls/hr Documented by: Insulin Human Lispro (Humalog Kwikpen (Bkc)) 0 unit SC TIDAC [facility]; Protocol Last Admin: 03/28/20 06:49 Dose: Not Given Documented by: Losartan Potassium (Cozaar) 100 mg PO DAILY [facility] Last Admin: 03/27/20 09:24 Dose: 100 mg Documented by: Metoprolol Tartrate (Lopressor (Beta José Luis)) 25 mg PO BID [facility] Last Admin: 03/27/20 21:16 Dose: 25 mg Documented by: Morphine Sulfate () 2 mg IV Q3H PRN PRN PRN Reason: Pain Score 6-10/10 Last Admin: 03/25/20 02:32 Dose: 2 mg Documented by: Ondansetron HCl (Zofran) 4 mg IV Q8H PRN PRN PRN Reason: NAUSEA/VOMITING Last Admin: 03/26/20 05:45 Dose: 4 mg Documented by: Oxycodone HCl (Oxyir) 5 mg PO Q6H PRN PRN PRN Reason: Pain Score 6-10/10 Last Admin: 03/25/20 18:30 Dose: 5 mg Documented by: Polyethylene Glycol (Miralax) 17 gm PO DAILY [facility] Last Admin: 03/27/20 09:24 Dose: 17 gm Documented by: Potassium Chloride (K-Dur) 20 meq PO BIDCM [facility] Last Admin: 03/27/20 17:00 Dose: 20 meq Documented by: Promethazine HCl (Phenergan) 6.25 mg IV Q6H PRN PRN PRN Reason: NAUSEA/VOMITING Last Admin: 03/21/20 07:31 Dose: 6.25 mg Documented by: Sodium Chloride () 10 - 40 ml IV UD PRN PRN Reason: SALINE FLUSH Last Admin: 03/25/20 02:32 Dose: 10 ml Documented by: Zolpidem Tartrate (Ambien (Generic)) 5 mg PO QHS PRN PRN PRN Reason: INSOMNIA Last Admin: 03/23/20 23:17 Dose: 5 mg Documented by: STROKE Vital Signs/Narrative: Vital Signs Temp Pulse Resp BP Pulse Ox 03/28/20 08:45 98.7 F 80 18 166/66 H 98 Medical Necessity - Tobacco Use Smoking Status: Never smoker Assessment/Plan All Active Problems Gallstone pancreatitis (Acute) 74-year-old lady admitted with acute gallstone pancreatitis with suspected cholangitis 1. Acute gallstone pancreatitis with suspected cholangitis ?Patient underwent ERCP with sphincterotomy on 03/21/2020 and subsequently lap rajani with cholangiogram on 03/24/2020. -03/28/2020: Patient scheduled to undergo upper GI dual contrast imaging studies in view of persistent abdominal discomfort 2. Acute hypoxic/hypercapnic respiratory failure ?This was attributed to narcotics postoperatively as well as obstructive sleep apnea 3. Bleeding per rectum Attributed to hemorrhoids managed conservatively -1020. Bleeding per rectum subsiding in frequency 4. Hypokalemia ?Corrected per protocol 5. Diabetes mellitus type 2 -on sliding scale insulin 6. Essential hypertension - Blood pressure controlled, home medications continued with dose adjustment as needed 7. Dyslipidemia -Patient is on statin therapy, continued at home dose 8. Hypothyroidism - Patient is on levothyroxine home dose continued . Mild intermittent asthma ?Currently stable 10. GERD ?On PPI 11. DVT prophylaxis SC Lovenox Inpatient E&M: [id number] [facility] Hosp L2
--- NOTE | 2020-03-28 09:01 | PCM.PN.SRG ---
Patient Problems: Active and Suspected Problems Gallstone pancreatitis (Acute) Subjective: The patient is still not tolerating a diet. She is continuing to have pain and upset stomach with clear liquids. - Physical Exam Vitals/I&O's: Vital Signs Temp Pulse Resp BP Pulse Ox 98.7 F 80 18 166/66 H 98 03/28/20 08:45 03/28/20 08:45 03/28/20 08:45 03/28/20 08:45 03/28/20 08:45 Oxygen Flow Rate (L/min) 2 Oxygen Delivery Method Room Air Weight: 185 lb 3.013 oz Body Mass Index (BMI) 37.2 Finger Stick Blood Glucose 109 Intake and Output for Last 24 Hours 03/26/20 03/27/20 03/28/20 23:59 23:59 23:59 Intake Total 110 / 230 1581.75 / 1581.75 314.5 / 314.5 Output Total 850 / 1350 2225 / 2225 1050 / 1050 Balance -740 / -1120 -643.25 / -643.25 -735.5 / -735.5 General: Alert, Oriented x3 Lungs: Normal air movement Abdomen: Soft, Non-Distended Laboratory Results 03/27/20 10:43: POC Glucose 196 H 03/27/20 15:35: POC Glucose 212 H 03/28/20 06:44: POC Glucose 143 H 03/28/20 07:35: WBC 8.1, RBC 4.00 L, Hgb 10.9 L, Hct 34.1 L, MCV 85.3, MCH 27.3, MCHC 32.0, RDW Std Deviation 47.5 H, RDW Coeff of Clarence 15.4 H, Plt Count 432, MPV 8.7 03/28/20 07:35: Sodium 138, Potassium 3.8, Chloride 99, Carbon Dioxide 34.0 H, Anion Gap 5, BUN 2 L, Creatinine 0.51 L, Estim Creat Clear Calc 35.99, Est GFR (MDRD) Af Amer 151, Est GFR (MDRD) Non-Af 125, BUN/Creatinine Ratio 3.9 L, Glucose 143 H, Calcium 8.5, Magnesium 1.9 Current Medications Albuterol Sulfate (Ventolin Aerosols) 2.5 mg INHALATION Q4H PRN PRN PRN Reason: Shortness of Breath/Wheezing Last Admin: 03/27/20 15:06 Dose: 2.5 mg Documented by: Amlodipine Besylate (Norvasc) 10 mg PO DAILY [facility] Last Admin: 03/27/20 09:24 Dose: 10 mg Documented by: Enoxaparin Sodium (Lovenox) 40 mg SC DAILY [facility] Last Admin: 03/27/20 09:25 Dose: 40 mg Documented by: Hydralazine HCl (Apresoline Iv) 10 mg IV Q6H PRN PRN PRN Reason: for SBP>160 Last Admin: 03/25/20 19:50 Dose: 10 mg Documented by: Pantoprazole Sodium 40 mg/ (Sodium Chloride) 110 mls @ 330 mls/hr IV Q12 [facility] Last Infusion: 03/27/20 23:28 Dose: Infused Documented by: Sodium Chloride () 250 mls @ 15 mls/hr IV .[id number] PRN PRN Reason: Saline Flush Last Infusion: 03/28/20 06:50 Dose: Infused Documented by: Sodium Chloride () 250 mls @ 15 mls/hr IV .[id number] PRN PRN Reason: Additional IVPB Infusion Last Infusion: 03/27/20 23:11 Dose: 0 mls/hr Documented by: Insulin Human Lispro (Humalog Kwikpen (Bkc)) 0 unit SC TIDAC [facility]; Protocol Last Admin: 03/28/20 06:49 Dose: Not Given Documented by: Losartan Potassium (Cozaar) 100 mg PO DAILY [facility] Last Admin: 03/27/20 09:24 Dose: 100 mg Documented by: Metoprolol Tartrate (Lopressor (Beta José Luis)) 25 mg PO BID [facility] Last Admin: 03/27/20 21:16 Dose: 25 mg Documented by: Morphine Sulfate () 2 mg IV Q3H PRN PRN PRN Reason: Pain Score 6-10/10 Last Admin: 03/25/20 02:32 Dose: 2 mg Documented by: Ondansetron HCl (Zofran) 4 mg IV Q8H PRN PRN PRN Reason: NAUSEA/VOMITING Last Admin: 03/26/20 05:45 Dose: 4 mg Documented by: Oxycodone HCl (Oxyir) 5 mg PO Q6H PRN PRN PRN Reason: Pain Score 6-10/10 Last Admin: 03/25/20 18:30 Dose: 5 mg Documented by: Polyethylene Glycol (Miralax) 17 gm PO DAILY [facility] Last Admin: 03/27/20 09:24 Dose: 17 gm Documented by: Potassium Chloride (K-Dur) 20 meq PO BIDCM [facility] Last Admin: 03/27/20 17:00 Dose: 20 meq Documented by: Promethazine HCl (Phenergan) 6.25 mg IV Q6H PRN PRN PRN Reason: NAUSEA/VOMITING Last Admin: 03/21/20 07:31 Dose: 6.25 mg Documented by: Sodium Chloride () 10 - 40 ml IV UD PRN PRN Reason: SALINE FLUSH Last Admin: 03/25/20 02:32 Dose: 10 ml Documented by: Zolpidem Tartrate (Ambien (Generic)) 5 mg PO QHS PRN PRN PRN Reason: INSOMNIA Last Admin: 03/23/20 23:17 Dose: 5 mg Documented by: Medical Necessity - Tobacco Use Smoking Status: Never smoker Assessment/Plan All Active Problems Gallstone pancreatitis (Acute) 74-year-old female with pancreatitis 1. Patient is still not made much progress since Tuesday. She had not been able to tolerate full liquids and continues to be on clears and even the clear liquids are making her nauseous. I am ordering an upper GI to see if she has gastric outlet obstruction and thickening of the duodenum. She had a CT scan which showed contrast getting through but she is still unable to tolerate oral intake. Check lipase in the morning. If the patient is unable to tolerate diet I would recommend CorPak placement for postpyloric tube feeding. Trevon Vee MD Pager: [facility] [address] [place] [address], [address] [place] [address] Office:
[2020-03-28] MEDS: hydrALAZINE 20 MG/ML Vial 10 MG IV (09:06)
[2020-03-28] MEDS: 0.9% Saline Lock 10 ML Syringe IV ×2 (09:07→21:51)
[2020-03-28 11:36] LABS: Bedside Glucose 136 mg/dL (70-110)
--- NOTE | 2020-03-28 14:04 | RAD_ITS ---
STUDY: AIR-CONTRAST UPPER GI SERIES UNKNOWN REASON FOR EXAM: Female, 74 years old. CHECK GASTRIC OUTLET OBSTRUCTION. ABDOMEN PAIN, MOSTLY ON THE RIGHT SIDE, WITH SOME NAUSEA. RECTAL BLEEDING ALSO PER PATIENT. RECENT PANCREATITIS, GB REMOVED RECENTLY. HX OF APPENDECTOMY AND TOTAL HYSTERECTOMY IN 1999. NO HX OF CA. FLUOROSCOPY TIME (if supplied): ( 45 seconds ) minutes/seconds. 17 spot views were obtained. TECHNIQUE: The patient ingested barium. Multiple images of the esophagus, stomach and duodenum were obtained. COMPARISON: None. FINDINGS: The esophagus is unremarkable. There is no evidence of esophageal obstruction. No evidence of mass lesion. No evidence of gastroesophageal reflux. The stomach and duodenum are unremarkable. There is no evidence of gastric outlet obstruction. RAD/Upper GI Dual Contrast IMPRESSION: No evidence of gastric outlet obstruction. Electronically Signed: Luis Lynne, at 15:22 EDT , Service support ,
[2020-03-28] MEDS: Metoprolol Tartrate 25 MG Tablet PO ×2 (15:03→21:50)
[2020-03-28] MEDS: Losartan Potassium 100 MG Tablet PO (15:03)
[2020-03-28] MEDS: amLODIPine 10 MG Tablet PO (15:03)
[2020-03-28] MEDS: Enoxaparin 40 MG/0.4 ML Syringe SC (15:03)
[2020-03-28] MEDS: Polyethylene Glycol 3350 17 GM PACKET PO (15:04)
--- NOTE | 2020-03-28 15:10 | NURSING ---
pt returned from test in radiology advanced to clear diet and mediations administered.
[2020-03-29] VITALS (14 sets, daily range): BP systolic 152–180; BP diastolic 67–93; PULSE 64–86; RESP 16–18; TEMP 36.6–37.2; O2SAT 94–96
[2020-03-29 03:16] LABS: Bedside Glucose 147 mg/dL (70-110)
[2020-03-29 07:00] LABS: Bedside Glucose 140 mg/dL (70-110)
[2020-03-29 07:03] LABS: Hematocrit 34.7 % (37-47); Hemoglobin 10.9 g/dL (12.0-15.0); Mean Corp Hgb Conc 31.4 g/dL (32-36); Mean Corpuscular Hgb 26.5 pg (27.0-32.0); Mean Corpuscular Volume 84.4 fL (81-99); Mean Platelet Vol. 9.4 fl (6.2-12.0); Platelet Count 508 K/mm3 (150-450); RBC Distribution Width CV 15.6 % (11.6-14.6); Red Blood Count 4.11 M/mm3 (4.2-5.4); White Blood Count 8.5 K/mm3 (4.4-11.0)
[2020-03-29 07:23] LABS: Anion Gap 8 (5-15); BUN 3 mg/dL (7-18); BUN/Creat Ratio 5.9 RATIO (10-20); Calcium,Total 8.4 mg/dL (8.5-10.1); Chloride 101 mmol/L (98-107); Creatinine, Serum 0.51 mg/dL (0.55-1.02); EST Glomerular Filtration Rate 126 mL/min (>60); Est Glom Filt Rate - Afr Amer 152 mL/min (>60); Estimated Creatinine Clearance 35.99 ml/min; Glucose 141 mg/dL (74-106); Potassium 3.4 mmol/L (3.5-5.1); Sodium Level 136 mmol/L (136-145)
--- NOTE | 2020-03-29 07:43 | PCM.PN.HOSP ---
Patient Problems: Active and Suspected Problems Gallstone pancreatitis (Acute) Reason for Visit: Acute gallstone pancreatitis with suspected cholangitis Subjective: Patient seen, admitted to tolerating clear diet. Plan is advanced patient's clear diet to full liquids. Upper GI series obtained the day prior did not demonstrate any evidence of gastric obstruction clinical obstruction Objective: GENERAL: cooperative HEENT: Atraumatic; EYES; Anicteric, Normal Conjunctiva NECK; supple, normal thyroid, RESPIRATORY: Diminished to auscultation CARDIOVASCULAR: Regular S1 S2, GI: soft, normoactive bowel sounds, : No Renal angle tenderness; EXTREMITIES: No edema, no clubbing, MUSCULOSKELETAL: no muscle waisting NEURO: Awake; no lateralizing signs. SKIN: No Rash PSYCH; Flat affect Vitals/I&O's: Vital Signs Temp Pulse Resp BP Pulse Ox 98.3 F 64 18 158/67 H 96 03/29/20 03:17 03/29/20 03:57 03/29/20 03:17 03/29/20 03:17 03/29/20 07:04 Oxygen Flow Rate (L/min) 2 Oxygen Delivery Method Nasal Cannula Weight: 82.1 kg Body Mass Index (BMI) 37.2 Finger Stick Blood Glucose 109 Intake and Output for Last 24 Hours 03/27/20 03/28/20 03/29/20 23:59 23:59 23:59 Intake Total 1581.75 / 1581.75 1454.25 / 1454.25 300 / 300 Output Total 2225 / 2225 2950 / 2950 600 / 600 Balance -643.25 / -643.25 -1495.75 / -1495.75 -300 / -300 Laboratory Results 03/28/20 07:35: WBC 8.1, RBC 4.00 L, Hgb 10.9 L, Hct 34.1 L, MCV 85.3, MCH 27.3, MCHC 32.0, RDW Std Deviation 47.5 H, RDW Coeff of Clarence 15.4 H, Plt Count 432, MPV 8.7 03/28/20 07:35: Sodium 138, Potassium 3.8, Chloride 99, Carbon Dioxide 34.0 H, Anion Gap 5, BUN 2 L, Creatinine 0.51 L, Estim Creat Clear Calc 35.99, Est GFR (MDRD) Af Amer 151, Est GFR (MDRD) Non-Af 125, BUN/Creatinine Ratio 3.9 L, Glucose 143 H, Calcium 8.5, Magnesium 1.9 03/28/20 11:25: POC Glucose 136 H 03/29/20 03:11: POC Glucose 147 H 03/29/20 06:34: WBC 8.5, RBC 4.11 L, Hgb 10.9 L, Hct 34.7 L, MCV 84.4, MCH 26.5 L, MCHC 31.4 L, RDW Std Deviation 47.0 H, RDW Coeff of Clarence 15.6 H, Plt Count 508 H, MPV 9.4 03/29/20 06:34: Sodium 136, Potassium 3.4 L, Chloride 101, Carbon Dioxide 27.0, Anion Gap 8, BUN 3 L, Creatinine 0.51 L, Estim Creat Clear Calc 35.99, Est GFR (MDRD) Af Amer 152, Est GFR (MDRD) Non-Af 126, BUN/Creatinine Ratio 5.9 L, Glucose 141 H, Calcium 8.4 L, Magnesium 2.0 03/29/20 06:54: POC Glucose 140 H Current Medications Albuterol Sulfate (Ventolin Aerosols) 2.5 mg INHALATION Q4H PRN PRN PRN Reason: Shortness of Breath/Wheezing Last Admin: 03/27/20 15:06 Dose: 2.5 mg Documented by: Amlodipine Besylate (Norvasc) 10 mg PO DAILY [facility] Last Admin: 03/28/20 15:03 Dose: 10 mg Documented by: Enoxaparin Sodium (Lovenox) 40 mg SC DAILY [facility] Last Admin: 03/28/20 15:03 Dose: 40 mg Documented by: Hydralazine HCl (Apresoline Iv) 10 mg IV Q6H PRN PRN PRN Reason: for SBP>160 Last Admin: 03/28/20 09:06 Dose: 10 mg Documented by: Pantoprazole Sodium 40 mg/ (Sodium Chloride) 110 mls @ 330 mls/hr IV Q12 [facility] Last Infusion: 03/28/20 22:11 Dose: Infused Documented by: Sodium Chloride () 250 mls @ 15 mls/hr IV .[id number] PRN PRN Reason: Saline Flush Last Infusion: 03/28/20 06:50 Dose: Infused Documented by: Sodium Chloride () 250 mls @ 15 mls/hr IV .[id number] PRN PRN Reason: Additional IVPB Infusion Last Infusion: 03/28/20 23:30 Dose: 0 mls/hr Documented by: Insulin Human Lispro (Humalog Kwikpen (Bkc)) 0 unit SC TIDAC [facility]; Protocol Last Admin: 03/29/20 06:56 Dose: Not Given Documented by: Losartan Potassium (Cozaar) 100 mg PO DAILY [facility] Last Admin: 03/28/20 15:03 Dose: 100 mg Documented by: Metoprolol Tartrate (Lopressor (Beta José Luis)) 25 mg PO BID [facility] Last Admin: 03/28/20 21:50 Dose: 25 mg Documented by: Morphine Sulfate () 2 mg IV Q3H PRN PRN PRN Reason: Pain Score 6-10/10 Last Admin: 03/25/20 02:32 Dose: 2 mg Documented by: Ondansetron HCl (Zofran) 4 mg IV Q8H PRN PRN PRN Reason: NAUSEA/VOMITING Last Admin: 03/26/20 05:45 Dose: 4 mg Documented by: Oxycodone HCl (Oxyir) 5 mg PO Q6H PRN PRN PRN Reason: Pain Score 6-10/10 Last Admin: 03/25/20 18:30 Dose: 5 mg Documented by: Polyethylene Glycol (Miralax) 17 gm PO DAILY [facility] Last Admin: 03/28/20 15:04 Dose: 17 gm Documented by: Potassium Chloride (K-Dur) 20 meq PO BIDCM [facility] Last Admin: 03/28/20 18:23 Dose: 20 meq Documented by: Promethazine HCl (Phenergan) 6.25 mg IV Q6H PRN PRN PRN Reason: NAUSEA/VOMITING Last Admin: 03/21/20 07:31 Dose: 6.25 mg Documented by: Sodium Chloride () 10 - 40 ml IV UD PRN PRN Reason: SALINE FLUSH Last Admin: 03/28/20 21:51 Dose: 10 ml Documented by: Zolpidem Tartrate (Ambien (Generic)) 5 mg PO QHS PRN PRN PRN Reason: INSOMNIA Last Admin: 03/23/20 23:17 Dose: 5 mg Documented by: STROKE Vital Signs/Narrative: Vital Signs Pulse Pulse Ox 08/15/20 07:04 96 03/29/20 03:57 64 Medical Necessity - Tobacco Use Smoking Status: Never smoker Assessment/Plan All Active Problems Gallstone pancreatitis (Acute) 74-year-old lady admitted with acute gallstone pancreatitis with suspected cholangitis 1. Acute gallstone pancreatitis with suspected cholangitis ?Patient underwent ERCP with sphincterotomy on 03/21/2020 and subsequently lap rajani with cholangiogram on 03/24/2020. -03/28/2020: Patient scheduled to undergo upper GI dual contrast imaging studies in view of persistent abdominal discomfort -03/29/2020 admitted to tolerating clear diet. Plan is advanced patient's clear diet to full liquids. Upper GI series obtained the day prior did not demonstrate any evidence of gastric obstruction clinical obstruction 2. Acute hypoxic/hypercapnic respiratory failure ?This was attributed to narcotics postoperatively as well as obstructive sleep apnea 3. Bleeding per rectum Attributed to hemorrhoids managed conservatively -1020. Bleeding per rectum subsiding in frequency 4. Hypokalemia ?Corrected per protocol 5. Diabetes mellitus type 2 -on sliding scale insulin 6. Essential hypertension - Blood pressure controlled, home medications continued with dose adjustment as needed 7. Dyslipidemia -Patient is on statin therapy, continued at home dose 8. Hypothyroidism - Patient is on levothyroxine home dose continued . Mild intermittent asthma ?Currently stable 10. GERD ?On PPI 11. DVT prophylaxis SC Lovenox Inpatient E&M: [id number] [facility] Hosp L2
[2020-03-29] MEDS: amLODIPine 10 MG Tablet PO (08:54)
[2020-03-29] MEDS: Metoprolol Tartrate 25 MG Tablet PO ×2 (08:54→21:08)
[2020-03-29] MEDS: Losartan Potassium 100 MG Tablet PO (08:54)
[2020-03-29] MEDS: Enoxaparin 40 MG/0.4 ML Syringe SC (08:55)
[2020-03-29] MEDS: Polyethylene Glycol 3350 17 GM PACKET PO (08:55)
--- NOTE | 2020-03-29 10:55 | PN.SURG_ITS ---
Patient Problems: Active and Suspected Problems Gallstone pancreatitis (Acute) Subjective: Patient is tolerating clear liquids. Will be advanced to full liquids today. Her progress has been slow but she is continuing to get better. Objective: Abdomen is soft and nontender - Physical Exam Vitals/I&O's: Vital Signs Temp Pulse Resp BP Pulse Ox 98.9 F 77 16 164/70 H 95 03/29/20 08:51 03/29/20 08:54 03/29/20 08:51 03/29/20 08:51 03/29/20 08:51 Oxygen Flow Rate (L/min) 2 Oxygen Delivery Method Room Air Weight: 180 lb 15.992 oz Body Mass Index (BMI) 37.2 Finger Stick Blood Glucose 109 Intake and Output for Last 24 Hours 03/27/20 03/28/20 03/29/20 23:59 23:59 23:59 Intake Total 1581.75 / 1581.75 1454.25 / 1454.25 410 / 410 Output Total 2225 / 2225 2950 / 2950 600 / 600 Balance -643.25 / -643.25 -1495.75 / -1495.75 -190 / -190 Laboratory Results 03/28/20 11:25: POC Glucose 136 H 03/29/20 03:11: POC Glucose 147 H 03/29/20 06:34: WBC 8.5, RBC 4.11 L, Hgb 10.9 L, Hct 34.7 L, MCV 84.4, MCH 26.5 L, MCHC 31.4 L, RDW Std Deviation 47.0 H, RDW Coeff of Clarence 15.6 H, Plt Count 508 H, MPV 9.4 03/29/20 06:34: Sodium 136, Potassium 3.4 L, Chloride 101, Carbon Dioxide 27.0, Anion Gap 8, BUN 3 L, Creatinine 0.51 L, Estim Creat Clear Calc 35.99, Est GFR (MDRD) Af Amer 152, Est GFR (MDRD) Non-Af 126, BUN/Creatinine Ratio 5.9 L, Glucose 141 H, Calcium 8.4 L, Magnesium 2.0 03/29/20 06:54: POC Glucose 140 H Current Medications Albuterol Sulfate (Ventolin Aerosols) 2.5 mg INHALATION Q4H PRN PRN PRN Reason: Shortness of Breath/Wheezing Last Admin: 03/27/20 15:06 Dose: 2.5 mg Documented by: Amlodipine Besylate (Norvasc) 10 mg PO DAILY [facility] Last Admin: 03/29/20 08:54 Dose: 10 mg Documented by: Enoxaparin Sodium (Lovenox) 40 mg SC DAILY [facility] Last Admin: 03/29/20 08:55 Dose: 40 mg Documented by: Hydralazine HCl (Apresoline Iv) 10 mg IV Q6H PRN PRN PRN Reason: for SBP>160 Last Admin: 03/28/20 09:06 Dose: 10 mg Documented by: Sodium Chloride () 250 mls @ 15 mls/hr IV .[id number] PRN PRN Reason: Saline Flush Last Infusion: 03/28/20 06:50 Dose: Infused Documented by: Sodium Chloride () 250 mls @ 15 mls/hr IV .[id number] PRN PRN Reason: Additional IVPB Infusion Last Infusion: 03/28/20 23:30 Dose: 0 mls/hr Documented by: Insulin Human Lispro (Humalog Kwikpen (Bkc)) 0 unit SC TIDAC [facility]; Protocol Last Admin: 03/29/20 06:56 Dose: Not Given Documented by: Losartan Potassium (Cozaar) 100 mg PO DAILY [facility] Last Admin: 03/29/20 08:54 Dose: 100 mg Documented by: Metoprolol Tartrate (Lopressor (Beta José Luis)) 25 mg PO BID [facility] Last Admin: 03/29/20 08:54 Dose: 25 mg Documented by: Morphine Sulfate () 2 mg IV Q3H PRN PRN PRN Reason: Pain Score 6-10/10 Last Admin: 03/25/20 02:32 Dose: 2 mg Documented by: Ondansetron HCl (Zofran) 4 mg IV Q8H PRN PRN PRN Reason: NAUSEA/VOMITING Last Admin: 03/26/20 05:45 Dose: 4 mg Documented by: Oxycodone HCl (Oxyir) 5 mg PO Q6H PRN PRN PRN Reason: Pain Score 6-10/10 Last Admin: 03/25/20 18:30 Dose: 5 mg Documented by: Pantoprazole Sodium (Protonix) 40 mg PO BID [facility] Polyethylene Glycol (Miralax) 17 gm PO DAILY [facility] Last Admin: 03/29/20 08:55 Dose: 17 gm Documented by: Potassium Chloride (K-Dur) 20 meq PO BIDCM [facility] Last Admin: 03/29/20 08:55 Dose: 20 meq Documented by: Promethazine HCl (Phenergan) 6.25 mg IV Q6H PRN PRN PRN Reason: NAUSEA/VOMITING Last Admin: 03/21/20 07:31 Dose: 6.25 mg Documented by: Sodium Chloride () 10 - 40 ml IV UD PRN PRN Reason: SALINE FLUSH Last Admin: 03/28/20 21:51 Dose: 10 ml Documented by: Zolpidem Tartrate (Ambien (Generic)) 5 mg PO QHS PRN PRN PRN Reason: INSOMNIA Last Admin: 03/23/20 23:17 Dose: 5 mg Documented by: Medical Necessity - Tobacco Use Smoking Status: Never smoker Assessment/Plan All Active Problems Gallstone pancreatitis (Acute) Slow improvement. We will see how she does with full liquids today hopefully will be able to be discharged tomorrow.
[2020-03-29] MEDS: Insulin Lispro 100 UNIT/ML INSULN.PEN SC ×2 (12:22→16:56)
[2020-03-29 12:31] LABS: Bedside Glucose 167 mg/dL (70-110)
[2020-03-29 17:01] LABS: Bedside Glucose 170 mg/dL (70-110)
[2020-03-29] MEDS: Pantoprazole Sodium 40 MG Tablet PO (21:08)
[2020-03-29] MEDS: hydrALAZINE 20 MG/ML Vial 10 MG IV (23:59)
[2020-03-29] MEDS: 0.9% Saline Lock 10 ML Syringe IV (23:59)
[2020-03-30] VITALS (8 sets, daily range): BP systolic 158–160; BP diastolic 83–84; PULSE 73–86; RESP 12–20; TEMP 36.7–37.1; O2SAT 96–100
[2020-03-30 05:50] LABS: Hematocrit 33.3 % (37-47); Mean Corpuscular Hgb 27.7 pg (27.0-32.0); Mean Corpuscular Volume 83.9 fL (81-99); Mean Platelet Vol. 9.4 fl (6.2-12.0); Platelet Count 479 K/mm3 (150-450); RBC Distribution Width CV 15.7 % (11.6-14.6); RBC Distribution Width SD 46.8 fl (35.1-43.9); Red Blood Count 3.97 M/mm3 (4.2-5.4); White Blood Count 8.7 K/mm3 (4.4-11.0)
[2020-03-30 06:03] LABS: Anion Gap 6 (5-15); BUN 4 mg/dL (7-18); BUN/Creat Ratio 6.6 RATIO (10-20); Calcium,Total 8.4 mg/dL (8.5-10.1); Chloride 103 mmol/L (98-107); EST Glomerular Filtration Rate 104 mL/min (>60); Est Glom Filt Rate - Afr Amer 125 mL/min (>60); Estimated Creatinine Clearance 35.99 ml/min; Glucose 150 mg/dL (74-106); Potassium 3.8 mmol/L (3.5-5.1); Sodium Level 138 mmol/L (136-145)
[2020-03-30 06:55] LABS: Bedside Glucose 148 mg/dL (70-110)
--- NOTE | 2020-03-30 09:02 | PN.SURG_ITS ---
Patient Problems: Active and Suspected Problems Gallstone pancreatitis (Acute) Subjective: No nausea or vomiting tolerating a diet Objective: Dressings dry no signs of infection abdomen is soft - Physical Exam Vitals/I&O's: Vital Signs Temp Pulse Resp BP Pulse Ox 98.7 F 76 20 H 160/84 H 97 03/30/20 02:45 03/30/20 07:02 03/30/20 04:04 03/30/20 02:45 03/30/20 07:08 Oxygen Flow Rate (L/min) 2 Oxygen Delivery Method Room Air Weight: 180 lb 15.992 oz Body Mass Index (BMI) 37.2 Finger Stick Blood Glucose 109 Intake and Output for Last 24 Hours 03/28/20 03/29/20 03/30/20 23:59 23:59 23:59 Intake Total 1454.25 / 1454.25 1140 / 1140 600 / 600 Output Total 2950 / 2950 1000 / 1000 Balance -1495.75 / -1495.75 140 / 140 600 / 600 Laboratory Results 03/29/20 12:21: POC Glucose 167 H 03/29/20 16:49: POC Glucose 170 H 03/30/20 05:41: WBC 8.7, RBC 3.97 L, Hgb 11.0 L, Hct 33.3 L, MCV 83.9, MCH 27.7, MCHC 33.0 D, RDW Std Deviation 46.8 H, RDW Coeff of Clarence 15.7 H, Plt Count 479 H , MPV 9.4 03/30/20 05:41: Sodium 138, Potassium 3.8, Chloride 103, Carbon Dioxide 29.0, Anion Gap 6, BUN 4 L, Creatinine 0.60, Estim Creat Clear Calc 35.99, Est GFR (MDRD) Af Amer 125, Est GFR (MDRD) Non-Af 104, BUN/Creatinine Ratio 6.6 L, Glucose 150 H, Calcium 8.4 L 03/30/20 06:48: POC Glucose 148 H Current Medications Albuterol Sulfate (Ventolin Aerosols) 2.5 mg INHALATION Q4H PRN PRN PRN Reason: Shortness of Breath/Wheezing Last Admin: 03/27/20 15:06 Dose: 2.5 mg Documented by: Amlodipine Besylate (Norvasc) 10 mg PO DAILY [facility] Last Admin: 03/29/20 08:54 Dose: 10 mg Documented by: Enoxaparin Sodium (Lovenox) 40 mg SC DAILY [facility] Last Admin: 03/29/20 08:55 Dose: 40 mg Documented by: Hydralazine HCl (Apresoline Iv) 10 mg IV Q6H PRN PRN PRN Reason: for SBP>160 Last Admin: 03/29/20 23:59 Dose: 10 mg Documented by: Sodium Chloride () 250 mls @ 15 mls/hr IV .[id number] PRN PRN Reason: Saline Flush Last Infusion: 03/28/20 06:50 Dose: Infused Documented by: Sodium Chloride () 250 mls @ 15 mls/hr IV .[id number] PRN PRN Reason: Additional IVPB Infusion Last Infusion: 03/28/20 23:30 Dose: 0 mls/hr Documented by: Insulin Human Lispro (Humalog Kwikpen (Bkc)) 0 unit SC TIDAC [facility]; Protocol Last Admin: 03/30/20 06:48 Dose: Not Given Documented by: Losartan Potassium (Cozaar) 100 mg PO DAILY [facility] Last Admin: 03/29/20 08:54 Dose: 100 mg Documented by: Metoprolol Tartrate (Lopressor (Beta José Luis)) 25 mg PO BID [facility] Last Admin: 03/29/20 21:08 Dose: 25 mg Documented by: Morphine Sulfate () 2 mg IV Q3H PRN PRN PRN Reason: Pain Score 6-10/10 Last Admin: 03/25/20 02:32 Dose: 2 mg Documented by: Ondansetron HCl (Zofran) 4 mg IV Q8H PRN PRN PRN Reason: NAUSEA/VOMITING Last Admin: 03/26/20 05:45 Dose: 4 mg Documented by: Oxycodone HCl (Oxyir) 5 mg PO Q6H PRN PRN PRN Reason: Pain Score 6-10/10 Last Admin: 03/25/20 18:30 Dose: 5 mg Documented by: Pantoprazole Sodium (Protonix) 40 mg PO BID [facility] Last Admin: 03/29/20 21:08 Dose: 40 mg Documented by: Polyethylene Glycol (Miralax) 17 gm PO DAILY [facility] Last Admin: 03/29/20 08:55 Dose: 17 gm Documented by: Potassium Chloride (K-Dur) 20 meq PO BIDCM [facility] Last Admin: 03/29/20 16:56 Dose: 20 meq Documented by: Promethazine HCl (Phenergan) 6.25 mg IV Q6H PRN PRN PRN Reason: NAUSEA/VOMITING Last Admin: 03/21/20 07:31 Dose: 6.25 mg Documented by: Sodium Chloride () 10 - 40 ml IV UD PRN PRN Reason: SALINE FLUSH Last Admin: 03/29/20 23:59 Dose: 10 ml Documented by: Zolpidem Tartrate (Ambien (Generic)) 5 mg PO QHS PRN PRN PRN Reason: INSOMNIA Last Admin: 03/23/20 23:17 Dose: 5 mg Documented by: Medical Necessity - Tobacco Use Smoking Status: Never smoker Assessment/Plan All Active Problems Gallstone pancreatitis (Acute) Okay for discharge
--- NOTE | 2020-03-30 09:05 | PCM.DC ---
- Discharge Diagnoses Current Active Problems: Current Active and Chronic Problems Gallstone pancreatitis (Acute) Type 2 diabetes mellitus (Chronic) Hypothyroidism (Chronic) Hypertension (Chronic) Asthma (Chronic) Hyperlipidemia (Chronic) GERD (gastroesophageal reflux disease) (Chronic) You will use the following diet at home:: Calorie/Carbohydrate Controlled (specify 1200, 1400, etc) - 1800 Your food should be the consistency of: Soft (bite-sized & easy to chew/swallow) Discharge Activity: Return to Normal Activity Allergies/Adverse Reactions: Allergies Penicillins Allergy (Verified 03/19/20 08:20) Rash Sulfa (Sulfonamide Antibiotics) Allergy (Verified 03/19/20 08:20) Rash sertraline Adverse Reaction (Verified 03/19/20 08:20) Other CALCIUM CITRATE Adverse Reaction (Uncoded 03/19/20 08:20) Other Medications to take at Discharge Albuterol Sulfate [Albuterol Sulfate HFA] 2 puff INHALATION Q6H PRN PRN 03/19/20 Amlodipine [Norvasc] 10 mg PO DAILY 03/19/20 Atorvastatin Calcium 10 mg PO QHS 03/19/20 Ergocalciferol (Vitamin D2) [Vitamin D2] 50,000 unit PO QWEEK 03/19/20 Irbesartan/Hydrochlorothiazide [Irbesartan-Hctz 300-12.5 mg Tb] 1 ea PO DAILY 03/19/20 Lansoprazole [Prevacid] 30 mg PO QODAY 03/19/20 Levothyroxine [Synthroid] 75 mcg PO DAILY 03/19/20 Metformin HCl [Glucophage] 2 tab PO BID 03/19/20 Metoprolol Tartrate 25 mg PO BID 03/19/20 Potassium Chloride 8 meq PO BID 03/19/20 Pantoprazole Sodium [Protonix] 40 mg PO DAILY #60 tab 03/30/20 The following prescriptions were given: Pantoprazole Sodium [Protonix] 40 mg PO DAILY #60 tab Transmission Status: Pending to [facility] [facility] Primary Care Physician: Anabella Pastrana MD [Primary Care Provider] - Please follow up with your Primary Care Physician in: in 1-2 weeks Test Results: Test results from this visit will be discussed in further detail at your follow-up appointment, if applicable. Please Follow Up With: Trevon Vee MD When: in 1-2 weeks Proposed Discharge Date: 03/30/20
--- NOTE | 2020-03-30 09:08 | PCM.DC.SUM ---
Discharge Date and Diagnosis - Problem List Patient Problems: Active and Suspected Problems Gallstone pancreatitis (Acute) Date of Admission: 03/19/20 Date of Discharge: 03/30/20 - Primary Discharge Diagnosis Acute Problems: Active Problems Gallstone pancreatitis (Acute) - Secondary Discharge Diagnosis Chronic Problems: Chronic Problems Type 2 diabetes mellitus (Chronic) Hypothyroidism (Chronic) Hypertension (Chronic) Asthma (Chronic) Hyperlipidemia (Chronic) GERD (gastroesophageal reflux disease) (Chronic) Hospital Course and Treatment Imaging Results: Clinical Impression(s) from Imaging Studies Abdomen/Pelvis CT 03/19/20 08:50 IMPRESSION: Mildly distended gallbladder containing multiple small stones. Increased markings in the root of the mesentery and in the peripancreatic region extending into the left anterior pararenal space. Pancreatitis should be ruled out. Electronically Signed: Luis Lynne, at 9:45 EDT , Service support , Abdomen Ultrasound 03/19/20 09:28 IMPRESSION: Fatty infiltration of the liver. Multiple small gallstones and sludge within the gallbladder lumen. Electronically Signed: Luis Lynne at 10:37 EDT , Service support , MRCP 03/20/20 08:22 IMPRESSION: Cholelithiasis. No MRCP evidence of choledocholithiasis. Electronically Signed: Artemio Lares MD at 10:47 EDT Tel , Service support , ADDENDUM: 03/22/20 1123 ERCP X-Ray 03/21/20 09:41 IMPRESSION: Nondiagnostic image submitted for interpretation. Electronically Signed: Luis Lynne at 15:35 EDT , Service support , Chest X-Ray 03/22/20 06:41 IMPRESSION: Poor inspiration with some bibasilar atelectasis Electronically Signed: Artemio Lares MD at 7:58 EDT Tel , Service support , Cholangiogram 03/24/20 12:17 IMPRESSION: Unremarkable intraoperative cholangiogram. Electronically Signed: Luis Lynne, at 13:11 EDT , Service support , Chest X-Ray 03/26/20 09:35 IMPRESSION: Mild residual bibasilar atelectasis. There has been improvement as compared to prior study. Electronically Signed: Luis Lynne, at 11:02 EDT , Service support , Abdomen/Pelvis CT 03/26/20 12:03 IMPRESSION: Mild degree of atelectasis/scarring at the lung bases. Small amount of perihepatic and perisplenic fluid as well as fluid in the pelvis. Findings ET tube with the acute pancreatitis with peripancreatic inflammatory changes and thickening of the anterior pararenal spaces. Electronically Signed: Luis Lynne, at 14:57 EDT , Service support , Upper GI Series 03/28/20 14:04 IMPRESSION: No evidence of gastric outlet obstruction. Electronically Signed: Luis Lynne, at 15:22 EDT , Service support , Summary of Care Provided: 74-year-old lady admitted with acute gallstone pancreatitis with suspected cholangitis 1. Acute gallstone pancreatitis with suspected cholangitis ?Patient underwent ERCP with sphincterotomy on 03/21/2020 and subsequently lap rajani with cholangiogram on 03/24/2020. -03/28/2020: Patient scheduled to undergo upper GI dual contrast imaging studies in view of persistent abdominal discomfort -03/29/2020 admitted to tolerating clear diet. Plan is advanced patient's clear diet to full liquids. Upper GI series obtained the day prior did not demonstrate any evidence of gastric obstruction clinical obstruction -03/30/2020: Patient was deemed stable for discharge, with plan for patient to follow-up with Dr. Vee as outpatient 2. Acute hypoxic/hypercapnic respiratory failure ?This was attributed to narcotics postoperatively as well as obstructive sleep apnea 3. Bleeding per rectum Attributed to hemorrhoids managed conservatively -1020. Bleeding per rectum subsiding in frequency 4. Hypokalemia ?Corrected per protocol 5. Diabetes mellitus type 2 -on sliding scale insulin 6. Essential hypertension - Blood pressure controlled, home medications continued with dose adjustment as needed 7. Dyslipidemia -Patient is on statin therapy, continued at home dose 8. Hypothyroidism - Patient is on levothyroxine home dose continued . Mild intermittent asthma ?Currently stable 10. GERD ?On PPI 11. DVT prophylaxis SC Lovenox Patient Problems: Active and Suspected Problems Gallstone pancreatitis (Acute) Objective: GENERAL: cooperative HEENT: Atraumatic; EYES; Anicteric, Normal Conjunctiva NECK; supple, normal thyroid, RESPIRATORY: Diminished to auscultation CARDIOVASCULAR: Regular S1 S2, GI: soft, normoactive bowel sounds, : No Renal angle tenderness; EXTREMITIES: No edema, no clubbing, MUSCULOSKELETAL: no muscle waisting NEURO: Awake; no lateralizing signs. SKIN: No Rash PSYCH; Flat affect - Physical Exam Vitals/I&O's: Vital Signs Temp Pulse Resp BP Pulse Ox 98.7 F 76 20 H 160/84 H 97 03/30/20 02:45 03/30/20 07:02 03/30/20 04:04 03/30/20 02:45 03/30/20 07:08 Oxygen Flow Rate (L/min) 2 Oxygen Delivery Method Room Air Weight: 82.1 kg Body Mass Index (BMI) 37.2 Finger Stick Blood Glucose 109 Intake and Output for Last 24 Hours 03/28/20 03/29/20 03/30/20 23:59 23:59 23:59 Intake Total 1454.25 / 1454.25 1140 / 1140 600 / 600 Output Total 2950 / 2950 1000 / 1000 Balance -1495.75 / -1495.75 140 / 140 600 / 600 Laboratory Results 03/29/20 12:21: POC Glucose 167 H 03/29/20 16:49: POC Glucose 170 H 03/30/20 05:41: WBC 8.7, RBC 3.97 L, Hgb 11.0 L, Hct 33.3 L, MCV 83.9, MCH 27.7, MCHC 33.0 D, RDW Std Deviation 46.8 H, RDW Coeff of Clarence 15.7 H, Plt Count 479 H, MPV 9.4 03/30/20 05:41: Sodium 138, Potassium 3.8, Chloride 103, Carbon Dioxide 29.0, Anion Gap 6, BUN 4 L, Creatinine 0.60, Estim Creat Clear Calc 35.99, Est GFR (MDRD) Af Amer 125, Est GFR (MDRD) Non-Af 104, BUN/Creatinine Ratio 6.6 L, Glucose 150 H, Calcium 8.4 L 03/30/20 06:48: POC Glucose 148 H Current Medications Albuterol Sulfate (Ventolin Aerosols) 2.5 mg INHALATION Q4H PRN PRN PRN Reason: Shortness of Breath/Wheezing Last Admin: 03/27/20 15:06 Dose: 2.5 mg Documented by: Amlodipine Besylate (Norvasc) 10 mg PO DAILY [facility] Last Admin: 03/29/20 08:54 Dose: 10 mg Documented by: Enoxaparin Sodium (Lovenox) 40 mg SC DAILY [facility] Last Admin: 03/29/20 08:55 Dose: 40 mg Documented by: Hydralazine HCl (Apresoline Iv) 10 mg IV Q6H PRN PRN PRN Reason: for SBP>160 Last Admin: 03/29/20 23:59 Dose: 10 mg Documented by: Sodium Chloride () 250 mls @ 15 mls/hr IV .[id number] PRN PRN Reason: Saline Flush Last Infusion: 03/28/20 06:50 Dose: Infused Documented by: Sodium Chloride () 250 mls @ 15 mls/hr IV .[id number] PRN PRN Reason: Additional IVPB Infusion Last Infusion: 03/28/20 23:30 Dose: 0 mls/hr Documented by: Insulin Human Lispro (Humalog Kwikpen (Bkc)) 0 unit SC TIDAC [facility]; Protocol Last Admin: 03/30/20 06:48 Dose: Not Given Documented by: Losartan Potassium (Cozaar) 100 mg PO DAILY [facility] Last Admin: 03/29/20 08:54 Dose: 100 mg Documented by: Metoprolol Tartrate (Lopressor (Beta José Luis)) 25 mg PO BID [facility] Last Admin: 03/29/20 21:08 Dose: 25 mg Documented by: Morphine Sulfate () 2 mg IV Q3H PRN PRN PRN Reason: Pain Score 6-10/10 Last Admin: 03/25/20 02:32 Dose: 2 mg Documented by: Ondansetron HCl (Zofran) 4 mg IV Q8H PRN PRN PRN Reason: NAUSEA/VOMITING Last Admin: 03/26/20 05:45 Dose: 4 mg Documented by: Oxycodone HCl (Oxyir) 5 mg PO Q6H PRN PRN PRN Reason: Pain Score 6-1010 Last Admin: 03/25/20 18:30 Dose: 5 mg Documented by: Pantoprazole Sodium (Protonix) 40 mg PO BID [facility] Last Admin: 03/29/20 21:08 Dose: 40 mg Documented by: Polyethylene Glycol (Miralax) 17 gm PO DAILY [facility] Last Admin: 03/29/20 08:55 Dose: 17 gm Documented by: Potassium Chloride (K-Dur) 20 meq PO BIDCM [facility] Last Admin: 03/29/20 16:56 Dose: 20 meq Documented by: Promethazine HCl (Phenergan) 6.25 mg IV Q6H PRN PRN PRN Reason: NAUSEA/VOMITING Last Admin: 03/21/20 07:31 Dose: 6.25 mg Documented by: Sodium Chloride () 10 - 40 ml IV UD PRN PRN Reason: SALINE FLUSH Last Admin: 03/29/20 23:59 Dose: 10 ml Documented by: Zolpidem Tartrate (Ambien (Generic)) 5 mg PO QHS PRN PRN PRN Reason: INSOMNIA Last Admin: 03/23/20 23:17 Dose: 5 mg Documented by: Discharge Diet: 1800 Calorie Control Diet Discharge Activity: Return to Normal Activity Home Medications: Medications to take at Discharge Albuterol Sulfate [Albuterol Sulfate HFA] 2 puff INHALATION Q6H PRN PRN 03/19/20 Amlodipine [Norvasc] 10 mg PO DAILY 03/19/20 Atorvastatin Calcium 10 mg PO QHS 03/19/20 Ergocalciferol (Vitamin D2) [Vitamin D2] 50,000 unit PO QWEEK 03/19/20 Irbesartan/Hydrochlorothiazide [Irbesartan-Hctz 300-12.5 mg Tb] 1 ea PO DAILY 03/19/20 Lansoprazole [Prevacid] 30 mg PO QODAY 03/19/20 Levothyroxine [Synthroid] 75 mcg PO DAILY 03/19/20 Metformin HCl [Glucophage] 2 tab PO BID 03/19/20 Metoprolol Tartrate 25 mg PO BID 03/19/20 Potassium Chloride 8 meq PO BID 03/19/20 Pantoprazole Sodium [Protonix] 40 mg PO DAILY #60 tab 03/30/20 Following Prescriptions Were Given to Patient: Pantoprazole Sodium [Protonix] 40 mg PO DAILY #60 tab Transmission Status: Pending to [facility] Primary Care Physician: Anabella Pastrana MD [Primary Care Provider] - Please follow up with your Primary Care Physician in: in 1-2 weeks Please Follow Up With: Trevon Vee MD When: in 1-2 weeks Disposition: Home Minutes spent on discharge:: 35 Patient Condition:: Stable Medical Necessity - Tobacco Use Smoking Status: Never smoker Meaningful Use Info Meaningful Use Diagnoses (Choose all that apply): None applicable Inpatient E&M: 46309 [facility]
[2020-03-30] MEDS: Metoprolol Tartrate 25 MG Tablet PO (10:17)
[2020-03-30] MEDS: Polyethylene Glycol 3350 17 GM PACKET PO (10:18)
[2020-03-30] MEDS: Losartan Potassium 100 MG Tablet PO (10:18)
[2020-03-30] MEDS: amLODIPine 10 MG Tablet PO (10:18)
[2020-03-30] MEDS: Enoxaparin 40 MG/0.4 ML Syringe SC (10:18)
[2020-03-30] MEDS: Pantoprazole Sodium 40 MG Tablet PO (10:20)
--- NOTE | 2020-03-31 14:59 | CASEMGMT ---
NATALIA GONZALEZ Discharge Follow-up Phone Call: JESSIE: 13 Strata: 3 Call Date: 03/31/2020 Discharge Date: 03/30/2020 Time of Call: 1500 Duration: 5 min Admitting Diagnosis: pancreatitis RN LISA completed follow-up phone call after recent hospitalization. Patient states she is feeling much better since being home. Patient had no questions regarding discharge instructions. Patient was able to fill prescriptions without any issues. Patient has follow-up appt scheduled with Dr. Vee. Patient had no further questions or concerns.
== END 2020-03-30 12:00 | disposition home or self-care (01) | DRG 417 ==
LOC: ED 09:26 → MS3 11:05
PROVIDERS: Internal Medicine; Surgery; Admitting Provider Hospitalist; Emergency Provider Emergency Medicine; PCP Internal Medicine; Visit Provider Internal Medicine
PROC: 0FCD8ZZ Extirpation of Matter from Pancreatic Duct, Via Natural or Artificial Opening Endoscopic (ICD-10-PCS; CPT 43260; principal; 2020-03-21 09:00)
PROC: 0FT44ZZ Resection of Gallbladder, Percutaneous Endoscopic Approach (ICD-10-PCS; CPT 47610; principal; 2020-03-24 10:45)
DX: K85.10 Biliary acute pancreatitis without necrosis or infection (principal); J96.01 Acute respiratory failure with hypoxia; J96.02 Acute respiratory failure with hypercapnia; K80.21 Calculus of gallbladder without cholecystitis with obstruction; K83.09 Other cholangitis; J98.11 Atelectasis; E87.2 Acidosis; T50.905A Adverse effect of unspecified drugs, medicaments and biological substances, initial encounter; K64.9 Unspecified hemorrhoids; K80.20 Calculus of gallbladder without cholecystitis without obstruction; K76.0 Fatty (change of) liver, not elsewhere classified; E11.9 Type 2 diabetes mellitus without complications; J45.20 Mild intermittent asthma, uncomplicated; E03.9 Hypothyroidism, unspecified; E78.00 Pure hypercholesterolemia, unspecified; K21.9 Gastro-esophageal reflux disease without esophagitis; E78.5 Hyperlipidemia, unspecified; I10 Essential (primary) hypertension; E87.6 Hypokalemia; G47.33 Obstructive sleep apnea (adult) (pediatric); Z79.890 Hormone replacement therapy; Z79.899 Other long term (current) drug therapy; Z90.710 Acquired absence of both cervix and uterus
CPT/HCPCS: 36415; 36600; 71045; 71046; 74176; 74177; 74181; 74246; 74300; 74328; 76000; 76705; 80048; 80053; 80076; 81001; 82803; 82962; 83036; 83605; 83690; 83735; 84443; 84484; 85025; 85027; 87635; 88304; 93005; 93970; 94002; 94003; 94640; 94799; 97110; 97116; 97162; 97163; 97166; 97530; 97535; 99251; 99284; J7030; J7050; J7120; Q9967; A4216; G0463; J1940; J2405; U0003

== ENCOUNTER → 2020-05-01 15:27 | Outpatient (CLI) | payer MEDICARE, SELFPAY ==
[2020-05-01 14:13] VITALS: BMI 37.2
[2020-05-01 16:43] LABS: Absolute Lymphocyte Count 2.23 X10^3/uL (0.83-4.51); Absolute Neutrophil Count 7.2 X10^3/uL (2.0-7.7); Basophil# 0.07 X10^3/uL; Basophil% 0.7 % (0-1); Eosinophil# 0.26 X10^3/uL; Eosinophils% 2.5 % (0-5); Hematocrit 38.8 % (37-47); Hemoglobin 12.2 g/dL (12.0-15.0); Lymphocyte # 2.23 X10^3/ul (4.0); Lymphocyte % 21.4 % (19-41); Mean Corp Hgb Conc 31.4 g/dL (32-36); Mean Corpuscular Hgb 27.1 pg (27.0-32.0); Mean Corpuscular Volume 86.2 fL (81-99); Mean Platelet Vol. 10.2 fl (6.2-12.0); Monocyte# 0.64 X10^3/uL; Monocyte% 6.2 % (0-10); NRBC Flagged by Analyzer 0 % (0-5); Neutrophil # 7.18 X10^3/uL (2.7-7.7); Platelet Count 444 K/mm3 (150-450); RBC Distribution Width CV 14.7 % (11.6-14.6); RBC Distribution Width SD 46.7 fl (35.1-43.9); White Blood Count 10.4 K/mm3 (4.4-11.0)
[2020-05-01 16:57] LABS: ALB/GLOB Ratio 0.9 RATIO (0.9-2.4); AST(SGOT) 14 U/L (15-37); Alanine Aminotransfer ALT/SGPT 28 U/L (13-56); Albumin, Serum 3.8 g/dL (3.2-5.0); Alkaline Phosphatase 109 U/L (45-117); Anion Gap 5 (5-15); BUN 9 mg/dL (7-18); BUN/Creat Ratio 11.2 RATIO (10-20); Calcium,Total 9.2 mg/dL (8.5-10.1); Chloride 100 mmol/L (98-107); Cholesterol 163 mg/dL (200); EST Glomerular Filtration Rate 74 mL/min (>60); Est Glom Filt Rate - Afr Amer 90 mL/min (>60); Globulin 4.2 g/dL (2.2-4.2); Glucose 148 mg/dL (74-106); High Density Lipoprotein 59 mg/dL; Potassium 3.7 mmol/L (3.5-5.1); Sodium Level 136 mmol/L (136-145); Triglycerides 144 mg/dL; Very Low Density Lipoprotein 29 mg/dL (5-40)
[2020-05-01 17:59] LABS: Hemoglobin A1c 6.8 % (3.8-5.6)
== END ==
PROVIDERS: PCP Internal Medicine; Visit Provider Internal Medicine
DX: K85.90 Acute pancreatitis without necrosis or infection, unspecified (principal); E78.5 Hyperlipidemia, unspecified; E03.9 Hypothyroidism, unspecified; I10 Essential (primary) hypertension; E11.9 Type 2 diabetes mellitus without complications; K21.9 Gastro-esophageal reflux disease without esophagitis
CPT/HCPCS: 36415; 80053; 80061; 83036; 85025

== ENCOUNTER → 2020-05-29 10:10 | Outpatient (CLI) | payer MEDICARE, SELFPAY ==
[2020-05-01 15:34] VITALS: BMI 37.2
--- NOTE | 2020-05-29 10:23 | RAD_ITS ---
STUDY: X-RAY CHEST REASON FOR EXAM: Female, 75 years old. SOB, COUGH, FEVER, DIARRHEA SINCE TUESDAY TECHNIQUE: PA and lateral views of the chest. COMPARISON: Comparison is made with prior examination 03/26/2020 and 03/22/2020. FINDINGS: Stable mild increased markings at the left lung base suggestive of left basilar scarring. There is no demonstrated pleural abnormality. Normal size heart. Normal mediastinum and robert. Normal visualized pulmonary arteries. Normal visualized aortic arch and descending thoracic aorta. There is a marked dextroscoliosis of the thoracic spine. Normal visualized ribs, clavicles, and shoulders. There is no demonstrated abnormality of the visualized soft tissue structures of the upper abdomen. RAD/Chest PA and Lateral IMPRESSION: Stable mild increased markings at the left lung base suggestive of scarring. Electronically Signed: Luis Lynne, at 11:26 EDT , Service support ,
[2020-05-29 11:38] LABS: Absolute Lymphocyte Count 1.43 X10^3/uL (0.83-4.51); Absolute Neutrophil Count 3.3 X10^3/uL (2.0-7.7); Basophil# 0.02 X10^3/uL; Basophil% 0.4 % (0-1); Eosinophil# 0.13 X10^3/uL; Eosinophils% 2.3 % (0-5); Hematocrit 38.4 % (37-47); Hemoglobin 12.1 g/dL (12.0-15.0); Lymphocyte # 1.43 X10^3/ul (4.0); Lymphocyte % 25.6 % (19-41); Mean Corp Hgb Conc 31.5 g/dL (32-36); Mean Corpuscular Hgb 26.5 pg (27.0-32.0); Mean Platelet Vol. 10.3 fl (6.2-12.0); Monocyte# 0.73 X10^3/uL; Monocyte% 13.1 % (0-10); NRBC Flagged by Analyzer 0 % (0-5); Neutrophil # 3.25 X10^3/uL (2.7-7.7); Neutrophil % 58.2 % (47-70); Platelet Count 311 K/mm3 (150-450); RBC Distribution Width CV 14.8 % (11.6-14.6); RBC Distribution Width SD 44.9 fl (35.1-43.9); Red Blood Count 4.57 M/mm3 (4.2-5.4); White Blood Count 5.6 K/mm3 (4.4-11.0)
[2020-05-29 12:14] LABS: ALB/GLOB Ratio 0.9 RATIO (0.9-2.4); AST(SGOT) 21 U/L (15-37); Alanine Aminotransfer ALT/SGPT 32 U/L (13-56); Albumin, Serum 3.7 g/dL (3.2-5.0); Alkaline Phosphatase 85 U/L (45-117); Anion Gap 7 (5-15); BUN 12 mg/dL (7-18); BUN/Creat Ratio 15.1 RATIO (10-20); Calcium,Total 8.7 mg/dL (8.5-10.1); Chloride 94 mmol/L (98-107); Creatinine, Serum 0.79 mg/dL (0.55-1.02); EST Glomerular Filtration Rate 75 mL/min (>60); Est Glom Filt Rate - Afr Amer 91 mL/min (>60); Glucose 113 mg/dL (74-106); Potassium 3.4 mmol/L (3.5-5.1); Protein, Total 7.7 g/dL (6.4-8.2); Sodium Level 130 mmol/L (136-145)
== END ==
PROVIDERS: PCP Internal Medicine; Referring Provider Internal Medicine; Visit Provider Internal Medicine
DX: R50.9 Fever, unspecified (principal); R19.7 Diarrhea, unspecified; R09.89 Other specified symptoms and signs involving the circulatory and respiratory systems; K85.90 Acute pancreatitis without necrosis or infection, unspecified; R05 Cough
CPT/HCPCS: 36415; 71046; 80053; 85025; 87635; C9803; U0003

== ENCOUNTER 2020-06-01 16:50 | Inpatient (IN) | payer MEDICARE, SELFPAY ==
[2020-05-01 15:34] VITALS: BMI 37.2
[2020-06-01] VITALS (12 sets, daily range): BP systolic 145–164; BP diastolic 81–88; PULSE 86–110; RESP 12–24; TEMP 37.8–38.4; O2SAT 89–96; BMI 35.5; BMI 34.9; BMI 35.0
--- NOTE | 2020-06-01 17:31 | EKG12_ITS ---
Test Reason : SOB Blood Pressure : / mmHG Vent. Rate : 094 BPM Atrial Rate : 094 BPM P-R Int : 158 ms QRS Dur : 084 ms QT Int : 342 ms P-R-T Axes : 034 -23 024 degrees QTc Int : 427 ms Normal sinus rhythm Normal ECG Confirmed by TALA CARNES, ILA ([id number]), manager editorial PENG BA ([id number]) on 06/12/2020 9:35:22 A M Referred By: NONI Confirmed By:RASHEL EDGAR MD
--- NOTE | 2020-06-01 17:33 | ED.DCSUM_ITS ---
History of Present Illness Chief Complaint: Shortness of Breath Narrative: This patient is a 75-year-old female who presents with cough and shortness of breath. She had a cough for a couple of weeks. 1 week ago she developed diarrhea and worsening shortness of breath, increased cough. She has had fevers of 101-1 02. She states that her cough is so hard that she then has dry heaving but no actual emesis. Just complains of 1 week of diarrhea. She states her abdomen is sore from coughing. She did have an outpatient chest x-ray laboratory studies and a Covid swab on but has not yet heard the results. She states that she is just tired of being ill and wants someone to tell her what is wrong and give her a medication to make her better. She screened positive on her suicide screening however on further questioning states that she is just depressed because she does not feel well she does not actively feel suicidal or that she is a risk to herself. Past Medical History - Allergies and Home Meds Allergies/Adverse Reactions: Allergies Penicillins Allergy (Verified 06/01/20 16:59) Rash Sulfa (Sulfonamide Antibiotics) Allergy (Verified 06/01/20 16:59) Rash sertraline Adverse Reaction (Verified 06/01/20 16:59) Other CALCIUM CITRATE Adverse Reaction (Uncoded 06/01/20 16:59) Other Primary Care Physician: Shoshana Condon MD [Primary Care Provider] - Past Medical History: - - Diabetes, hypertension, asthma Surgical History: appendectomy, hysterectomy Smoking Status: Never smoker - Family History Maternal Family History: Family History (Last Reviewed 05/29/20 @ 09:11 by Naila Spencer) Mother Diabetes Heart disease Arthritis Hypertension Hyperlipemia Father Colon cancer Heart disease Hypertension Hyperlipemia Cancer Myocardial infarction Family History: Reports: No pertinent history Paternal Family History: Family History (Last Reviewed 05/29/20 @ 09:11 by Naila Spencer) Mother Diabetes Heart disease Arthritis Hypertension Hyperlipemia Father Colon cancer Heart disease Hypertension Hyperlipemia Cancer Myocardial infarction Family History: Reports: No pertinent history Review of Systems All systems negative except as indicated General: Denies: Fever Eyes: Denies: Visual changes - bilaterally ENT: Denies: Bilateral ear pain Cardiovascular: Denies: Chest pain Respiratory: Reports: Dyspnea, Cough. Denies: Sputum Gastrointestinal: Reports: Abdominal pain, Nausea. Denies: Vomiting Musculoskeletal: Denies: Myalgias, Arthralgias Skin: Denies: Rash Neurological: Denies: Headache Allergy: Denies: Uticaria Physical Exam Vital Signs/Narrative: Vital Signs Temp Pulse Resp BP Pulse Ox 06/01/20 16:51 100.2 F H 99 20 H 164/88 H 93 Inital Vital Signs reviewed: Yes General: Well nourished Head: Normocephalic Eyes: EOMI ENT: Moist mucous membranes Neck: Supple Cardiovascular: Regular rhythm, Tachycardia Respiratory: - - Decreased air exchange, rales noted at the left base no wheezing Abdomen: Soft, Nontender, Nondistended Extremities: Nontender Skin: Normal color Neurological: Alert Psychological: Normal affect Diagnostic/Tx/Re-eval Impressions Chest X-Ray 06/01/20 20:04 IMPRESSION: Left basilar atelectasis. Electronically Signed: Gato Gómez MD at 20:16 EDT Tel , Service support , 06/01/20 20:04 Chest PA and Lateral [RAD] Stat Laboratory Results 06/01/20 06/01/20 17:30 17:30 WBC 4.5 RBC 4.40 Hgb 11.7 L Hct 36.6 L MCV 83.2 MCH 26.6 L MCHC 32.0 RDW Std Deviation 43.8 RDW Coeff of Clarence 14.4 Plt Count 252 MPV 10.1 Immature Gran % (Auto) 0.200 Neut % (Auto) 70.0 Lymph % (Auto) 22.5 [place] % (Auto) 7.1 Eos % (Auto) 0.0 Baso % (Auto) 0.2 Absolute Neuts (auto) 3.1 Absolute Lymphs (auto) 1.01 Nucleated RBC % 0 Sodium 129 L Potassium 3.6 Chloride 96 L Carbon Dioxide 27.0 Anion Gap 6 BUN 7 Creatinine 0.65 Estim Creat Clear Calc 35.45 Est GFR (MDRD) Af Amer 114 Est GFR (MDRD) Non-Af 94 BUN/Creatinine Ratio 10.7 Glucose 123 H Calcium 8.5 - Medical Decision Making Diagnostic evaluation as above. Serum labs are unremarkable and chest x-ray just shows left basilar atelectasis. On review of prior labs COVID-19 test was positive. On reevaluation patient is desaturated to 88% was placed on 2 L via nasal cannula. She will be admitted. ED Disposition - Plan for ED Patient: Disposition: Acute Care Hospital [facility] Diagnosis: COVID-19 Referrals: Shoshana Condon MD [Primary Care Provider] -
[2020-06-01] MEDS: Ipratropium/Albuterol Sulfate 3 ML AMPUL.NEB INHALATION (17:54)
[2020-06-01 18:14] LABS: Absolute Lymphocyte Count 1.01 X10^3/uL (0.83-4.51); Absolute Neutrophil Count 3.1 X10^3/uL (2.0-7.7); Basophil# 0.01 X10^3/uL; Basophil% 0.2 % (0-1); Hematocrit 36.6 % (37-47); Hemoglobin 11.7 g/dL (12.0-15.0); Lymphocyte # 1.01 X10^3/ul (4.0); Lymphocyte % 22.5 % (19-41); Mean Corpuscular Hgb 26.6 pg (27.0-32.0); Mean Corpuscular Volume 83.2 fL (81-99); Mean Platelet Vol. 10.1 fl (6.2-12.0); Monocyte# 0.32 X10^3/uL; Monocyte% 7.1 % (0-10); NRBC Flagged by Analyzer 0 % (0-5); Neutrophil # 3.13 X10^3/uL (2.7-7.7); Platelet Count 252 K/mm3 (150-450); RBC Distribution Width CV 14.4 % (11.6-14.6); RBC Distribution Width SD 43.8 fl (35.1-43.9); White Blood Count 4.5 K/mm3 (4.4-11.0)
[2020-06-01 18:24] LABS: Anion Gap 6 (5-15); BUN 7 mg/dL (7-18); BUN/Creat Ratio 10.7 RATIO (10-20); Calcium,Total 8.5 mg/dL (8.5-10.1); Chloride 96 mmol/L (98-107); Creatinine, Serum 0.65 mg/dL (0.55-1.02); EST Glomerular Filtration Rate 94 mL/min (>60); Est Glom Filt Rate - Afr Amer 114 mL/min (>60); Estimated Creatinine Clearance 35.45 ml/min; Glucose 123 mg/dL (74-106); Potassium 3.6 mmol/L (3.5-5.1); Sodium Level 129 mmol/L (136-145)
--- NOTE | 2020-06-01 20:04 | RAD_ITS ---
STUDY: X-RAY CHEST REASON FOR EXAM: Female, 75 years old. DIARRHEA X1 WEEK. SOB INCREASING OVER LAST WEEK. INTERMITTENT PRODUCTIVE COUGH. BODY ACHES. FEVER AT HOME EARLY IN WEEK TECHNIQUE: Frontal and lateral views of the chest. COMPARISON: 05/29/2020 FINDINGS: Left basilar atelectasis. There is no demonstrated pleural abnormality. Normal size heart. Normal mediastinum and robert. Normal visualized pulmonary arteries. Normal visualized aortic arch and descending thoracic aorta. There is a dextroscoliosis of the thoracic spine. Normal visualized ribs, clavicles, and shoulders. There is no demonstrated abnormality of the visualized soft tissue structures of the upper abdomen. RAD/Chest PA and Lateral IMPRESSION: Left basilar atelectasis. Electronically Signed: Gato Gómez MD at 20:16 EDT Tel , Service support ,
--- NOTE | 2020-06-01 21:30 | PCM.HP.STD ---
Problem List (1) COVID-19 Status: Acute (2) Fever and chills Status: Acute (3) Pancreatitis Status: Inactive (4) Asthma Status: Chronic (5) Arthritis Status: Chronic (6) Seasonal allergies Status: Chronic (7) Diabetes Status: Chronic (8) Hyperlipemia Status: Chronic (9) Osteopenia Status: Chronic (10) Hypothyroidism Status: Chronic (11) GERD (gastroesophageal reflux disease) Status: Chronic (12) Essential hypertension Status: Chronic (13) Ascending cholangitis Status: Suspected (14) Gallstone pancreatitis Status: Acute (15) Type 2 diabetes mellitus Status: Chronic (16) Hypothyroidism Status: Chronic (17) Hypertension Status: Chronic (18) Asthma Status: Chronic (19) Hyperlipidemia Status: Chronic (20) GERD (gastroesophageal reflux disease) Status: Chronic History of Present Illness Date of Admission: 06/01/20 Chief Complaint: shortness of breath The patient is a 75 year old F presents with a one-week history of shortness of breath. About 8 days ago, patient and her went out to a restaurant and afterwards she had some diarrhea. But during the rest of the week, she has been progressively short of breath and coughing. Patient saw her doctor this past week and had a chest x-ray on the that showed increased markings of the left base but patient was otherwise doing well. Since that time she is just steadily gotten worse. She is also been having fevers and chills. Patient also having abdominal pain that felt similar to when she had gallstone pancreatitis. Patient presents to the emergency room and had increasing infiltrate on chest x-ray. She tested positive for COVID-19. Other than that restaurant, patient is unaware of any other potential contacts she may have contracted COVID-19. Patient's had some diarrhea around the same time she did but has no other symptoms. [] Past Medical History Past Medical History (Chronic Problems): Chronic Problems (Last Reviewed 05/29/20 @ 09:11 by Naila Spencer) Asthma (Chronic) Arthritis (Chronic) Seasonal allergies (Chronic) Diabetes (Chronic) Hyperlipemia (Chronic) Osteopenia (Chronic) Hypothyroidism (Chronic) GERD (gastroesophageal reflux disease) (Chronic) Essential hypertension (Chronic) Type 2 diabetes mellitus (Chronic) Hypothyroidism (Chronic) Hypertension (Chronic) Asthma (Chronic) Hyperlipidemia (Chronic) GERD (gastroesophageal reflux disease) (Chronic) Medical History: Medical History (Last Reviewed 06/01/20 @ 21:[address] Yasmani Lowe DO) Pancreatitis (Inactive) K85.90 Asthma (Chronic) J45.909 Arthritis (Chronic) M19.90 Seasonal allergies (Chronic) J30.2 Diabetes (Chronic) E11.9 Hyperlipemia (Chronic) E78.5 Osteopenia (Chronic) M85.80 Hypothyroidism (Chronic) E03.9 GERD (gastroesophageal reflux disease) (Chronic) K21.9 Essential hypertension (Chronic) I10 Allergies Penicillins Allergy (Verified 06/01/20 16:59) Rash Sulfa (Sulfonamide Antibiotics) Allergy (Verified 06/01/20 16:59) Rash sertraline Adverse Reaction (Verified 06/01/20 16:59) Other CALCIUM CITRATE Adverse Reaction (Uncoded 06/01/20 16:59) Other Home Medications: Ambulatory Orders Medication Instructions Recorded Albuterol Sulfate [Albuterol 2 puff INHALATION Q6H PRN PRN 03/19/20 Sulfate HFA] Amlodipine [Norvasc] 10 mg PO DAILY 03/19/20 Atorvastatin Calcium 10 mg PO QHS 03/19/20 Ergocalciferol (Vitamin D2) 50,000 unit PO QWEEK 03/19/20 [Vitamin D2] Irbesartan/Hydrochlorothiazide 1 ea PO DAILY 03/19/20 [Irbesartan-Hctz 300-12.5 mg Tb] Levothyroxine [Synthroid] 75 mcg PO DAILY 03/19/20 Metformin HCl [Glucophage] 2 tab PO BID 03/19/20 Metoprolol Tartrate 25 mg PO BID 03/19/20 fluticasone propionate 110 2 puff INHALATION BID 05/01/20 mcg/actuation HFA aerosol inhaler potassium chloride 8 mEq 8 meq PO BID 05/01/20 tablet,extended release pantoprazole 40 mg tablet,delayed 40 mg PO DAILY #90 tab 05/29/20 release Surgical History: Surgical History (Last Reviewed 06/01/20 @ 21:[address] 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 Yasmani Lowe DO) Mother Diabetes Heart disease Arthritis Hypertension Hyperlipemia Father Colon cancer Heart disease Hypertension Hyperlipemia Cancer Myocardial infarction History Items: No pertinent history Paternal Family History: Family History (Last Reviewed 06/01/20 @ 21:[address] Yasmani Lowe DO) Mother Diabetes Heart disease Arthritis Hypertension Hyperlipemia Father Colon cancer Heart disease Hypertension Hyperlipemia Cancer Myocardial infarction History Items: No pertinent history Review of Systems Constitutional: Reports: Anorexia, Chills, Fever, Malaise, Weakness Eyes: Denies: Blurred vision, Double vision Cardiovascular: Denies: Chest Pain, Palpitations Respiratory: Reports: Cough, Shortness of Breath Gastrointestinal: Reports: Abdominal Pain, Diarrhea, Nausea, Vomiting Genitourinary: Denies: Dysuria Musculoskeletal: Denies: Joint Pain, Joint Tenderness Skin: Reports: Rash - On her abdomen. Denies: Dryness, Jaundice Psychiatric: Denies: Anxiety, Depression VTE Information - Inpt Only VTE Present on Admission: No VTE Mechan Device Prophylaxis: None VTE Pharm Prophylaxis ordered?: Yes Patient Problems: Active and Suspected Problems (Last Reviewed 05/29/20 @ 09:11 by Naila Spencer) COVID-19 (Acute) - Physical Exam Vitals/I&O's: Vital Signs Temp Pulse Resp BP Pulse Ox 37.9 C H 89 23 H 145/86 H 96 06/01/20 21:00 06/01/20 21:00 06/01/20 21:00 06/01/20 21:00 06/01/20 21:00 Oxygen Flow Rate (L/min) 2 Oxygen Delivery Method Nasal Cannula Weight: 82.554 kg Body Mass Index (BMI) 35.5 Finger Stick Blood Glucose 109 General: Alert, Cooperative, No apparent distress, - - Listless. Febrile. Neck: No Nodes, Thyroid Normal Size and Texture Lungs: Diminished, - - Crackles in the bases Cardiovascular: Regular rate, Regular Rhythm, Normal S1, Normal S2, No murmurs Abdomen: Bowel Sounds Present, Soft, Non Tender, Non-Distended, No Hepato-splenomegaly Extremities: No edema, No Calf Tenderness Skin: No breakdown, - - Faint macular rash on her upper abdomen Musculoskeletal: No Tenderness to Palpation of Joints or Extremities, No Muscle Wasting Neurological: Motor Exam 5/5 strength throughout, - - No clonus Psych/Mental Status: Normal Affect, Appropriate Laboratory Results 06/01/20 17:30: WBC 4.5, RBC 4.40, Hgb 11.7 L, Hct 36.6 L, MCV 83.2, MCH 26.6 L, MCHC 32.0, RDW Std Deviation 43.8, RDW Coeff of Clarence 14.4, Plt Count 252, MPV 10.1, Immature Gran % (Auto) 0.200, Neut % (Auto) 70.0, Lymph % (Auto) 22.5, [place] % (Auto) 7.1, Eos % (Auto) 0.0, Baso % (Auto) 0.2, Absolute Neuts (auto) 3.1, Absolute Lymphs (auto) 1.01, Nucleated RBC % 0 06/01/20 17:30: Sodium 129 L, Potassium 3.6, Chloride 96 L, Carbon Dioxide 27.0, Anion Gap 6, BUN 7, Creatinine 0.65, Estim Creat Clear Calc 35.45, Est GFR (MDRD) Af Amer 114, Est GFR (MDRD) Non-Af 94, BUN/Creatinine Ratio 10.7, Glucose 123 H, Calcium 8.5 06/01/20 17:50: COVID-19 (CHRISTY) Detected Chest x-ray reviewed and showed atelectasis left lung base. Increased pulmonary vascular markings particularly in the right lung. Assessment/Plan All Active Problems (Last Reviewed 05/29/20 @ 09:11 by Naila Spencer) COVID-19 (Acute) Fever and chills (Acute) Gallstone pancreatitis (Acute) 1. Acute COVID-19 infection: We will start the patient on dexamethasone. Consult infectious disease for other possible treatments. Check additional lab work, including d-dimer, LDH. Hold off on any antibiotics at this time. I advised the patient's to notify his primary care doctor to get tested. He had has a follow-up appointment on the to get a B12 shot. I told him to cancel that and to contact his primary care provider. 2. Acute hypoxic respiratory insufficiency: Currently stable on nasal cannula. Wean oxygen as tolerated. Check ambulatory pulse ox prior to discharge. 3. Asthma: Certainly complicating patient's infection. Continue with bronchodilators that she takes at home. 4. Hyponatremia: Likely are the HCTZ, which will be held. Monitor. 5. VTE prophylaxis: LMWH 6. Advanced care planning: dw patient. full code status. Inpatient E&M: [id number] Init Hosp L3
[2020-06-01 22:21] LABS: Prothrombin Time (Protime)PT. 12.5 SECONDS (11.7-14.9)
[2020-06-01 22:24] LABS: D-Dimer Quantitative (DVT/PE) 0.47 FEU/ug/m (0.27-0.49)
[2020-06-01] MEDS: 0.9% Normal Saline 1,000 ML 150 ML IV (22:39)
[2020-06-01] MEDS: Atorvastatin Calcium 10 MG Tablet PO (22:44)
[2020-06-01] MEDS: Acetaminophen 325 MG Tablet 650 MG PO (22:44)
[2020-06-01] MEDS: Metoprolol Tartrate 25 MG Tablet PO (22:44)
[2020-06-01] MEDS: 0.9% Saline Lock 10 ML Syringe IV (22:44)
[2020-06-01] MEDS: Enoxaparin 30 MG/0.3 ML Syringe SC (22:45)
[2020-06-01] MEDS: dexAMETHasone 10 MG/ML Vial 6 MG IV (22:45)
[2020-06-01 23:02] LABS: AST(SGOT) 36 U/L (15-37); Alanine Aminotransfer ALT/SGPT 33 U/L (13-56); Albumin, Serum 3.1 g/dL (3.2-5.0); Alkaline Phosphatase 79 U/L (45-117); LDH 209 U/L (84-246); Lipase 97 U/L (73-393); Protein, Total 7.1 g/dL (6.4-8.2)
[2020-06-01 23:13] LABS: Lactic Acid 0.9 mmol/L (0.4-1.9)
[2020-06-01 23:15] LABS: Procalcitonin 0.09 ng/mL (0.00-0.09)
[2020-06-01 23:41] LABS: Bedside Glucose 116 mg/dL (70-110)
[2020-06-02 02:01] VITALS: BP 149/81; PULSE 70; RESP 20; TEMP 36.4; O2SAT 96
[2020-06-02 06:28] LABS: Absolute Lymphocyte Count 0.73 X10^3/uL (0.83-4.51); Absolute Neutrophil Count 2.4 X10^3/uL (2.0-7.7); Hematocrit 36.6 % (37-47); Hemoglobin 11.7 g/dL (12.0-15.0); Lymphocyte # 0.73 X10^3/ul (4.0); Lymphocyte % 22.3 % (19-41); Mean Corpuscular Hgb 26.8 pg (27.0-32.0); Mean Corpuscular Volume 83.9 fL (81-99); Mean Platelet Vol. 9.7 fl (6.2-12.0); Monocyte# 0.13 X10^3/uL; NRBC Flagged by Analyzer 0 % (0-5); Neutrophil # 2.42 X10^3/uL (2.7-7.7); Neutrophil % 73.7 % (47-70); POSITIVE MORPHOLOGY YES; Platelet Count 239 K/mm3 (150-450); RBC Distribution Width CV 14.3 % (11.6-14.6); RBC Distribution Width SD 43.8 fl (35.1-43.9); Red Blood Count 4.36 M/mm3 (4.2-5.4); White Blood Count 3.3 K/mm3 (4.4-11.0)
[2020-06-02 06:37] LABS: Differential Indicated SCAN CRITERIA MET
[2020-06-02 06:52] LABS: Atypical Lymphocyte RARE %; Differential Comment SCANNED; Reactive Lymphocyte RARE
[2020-06-02] MEDS: Insulin Lispro 100 UNIT/ML INSULN.PEN SC ×3 (06:53→16:59)
[2020-06-02 06:59] LABS: Anion Gap 8 (5-15); BUN 10 mg/dL (7-18); BUN/Creat Ratio 15.7 RATIO (10-20); Calcium,Total 8.4 mg/dL (8.5-10.1); Chloride 99 mmol/L (98-107); Creatinine, Serum 0.64 mg/dL (0.55-1.02); EST Glomerular Filtration Rate 97 mL/min (>60); Est Glom Filt Rate - Afr Amer 118 mL/min (>60); Estimated Creatinine Clearance 62.96 ml/min; Glucose 202 mg/dL (74-106); Potassium 3.9 mmol/L (3.5-5.1); Sodium Level 132 mmol/L (136-145)
[2020-06-02 07:05] LABS: Bedside Glucose 213 mg/dL (70-110)
[2020-06-02 07:44] VITALS: BP 145/93; PULSE 82; RESP 18; TEMP 36.6; O2SAT 97
[2020-06-02] MEDS: metFORMIN HCl 500 MG Tablet PO ×2 (07:52→16:59)
--- NOTE | 2020-06-02 08:56 | PCM.NTREPORT ---
Nutrition Therapy Report - History Nutrition Services has been consulted to:: Manage nutrient details of diet order Current diet / nutrition support order:: 1800 calorie Consistent Cho - Anthropometric Measurements Height:: 5 ft Weight:: 80.8 kg Body Mass Index (BMI):: 34.7 - Relevant Labs Relevant Labs:: WBC 3.3 K/mm3 (4.4-11.0) L 06/02/20 06:10 Hgb 11.7 g/dL (12.0-15.0) L 06/02/20 06:10 Hct 36.6 % (37-47) L 06/02/20 06:10 MCH 26.8 pg (27.0-32.0) L 06/02/20 06:10 Neut % (Auto) 73.7 % (47-70) H 06/02/20 06:10 Absolute Lymphs (auto) 0.73 X10^3/uL (0.83-4.51) L 06/02/20 06:10 Sodium 132 mmol/L (136-145) L 06/02/20 06:10 Chloride 96 mmol/L (98-107) L 06/01/20 17:30 Glucose 202 mg/dL (74-106) H 06/02/20 06:10 Calcium 8.4 mg/dL (8.5-10.1) L 06/02/20 06:10 Albumin 3.1 g/dL (3.2-5.0) L 06/01/20 22:31 - Assessment Food / Nutrition-Related History:: Pt states tries to limit sugar in diet at home - po intake has been poor and has been trying to force myself to eat. UBW: 82.554 kg - had gained wt d/t gallbladder/pancreas issues and wt per EMR 86.409 kg (03/19/20) - wt loss of 2.2% x past week or so. Pt agreeable to ONS for increased nutrition if consumed. Checks bld gluc fasting in mornings w/ gluc ~ 120s. Declines need for diet education at this time. On steroid which may further elevate gluc - on insulin to help w/ glycemic control. Having issues w/ diarrhea x 1 wk. [ End ] - Nutrition Diagnosis Problem / Etiology / Signs & Symptoms (PES):: Pt with decreased po intake x 1 wk d/t issues with diarrhea and + Covid AEB 2.2% wt loss x 1 wk, no appetite forcing self to eat - also pt w/ no sense of taste or smell. Evidence of Malnutrition Exists:: Yes Moderate PCM:: Acute Illness - Nutrition Intervention Nutrition Prescription:: [id number] macy / 75-85 gm pro / day - Food / Nutrient Delivery Interventions Summary of nutrition intervention:: Rec consider liberalize to regular diet if pt poor po intake improves. Continue ONS at [facility] for increased nutrition if consumed. [ End ] - MNT Monitoring Further MNT monitoring and evaluation required?: Yes MNT Follow-up in:: 3-5 days - please call RD/LD if questions/concerns at [phone]
[2020-06-02 09:00] VITALS: BMI 34.7
[2020-06-02] MEDS: dexAMETHasone 10 MG/ML Vial 6 MG IV (10:54)
[2020-06-02 10:56] VITALS: PULSE 82
[2020-06-02] MEDS: 0.9% Saline Lock 10 ML Syringe IV (10:56)
[2020-06-02] MEDS: Metoprolol Tartrate 25 MG Tablet PO ×2 (10:56→22:21)
[2020-06-02] MEDS: Pantoprazole Sodium 40 MG Tablet PO (10:56)
[2020-06-02] MEDS: amLODIPine 10 MG Tablet PO (10:56)
[2020-06-02] MEDS: Levothyroxine 75 MCG Tablet PO (10:56)
[2020-06-02] MEDS: Enoxaparin 30 MG/0.3 ML Syringe SC ×2 (10:57→22:21)
[2020-06-02 11:21] LABS: Bedside Glucose 207 mg/dL (70-110)
[2020-06-02] MEDS: Glucerna Shake 120 ML LIQUID PO ×3 (12:35→22:20)
--- NOTE | 2020-06-02 12:48 | PCM.PN.HOSP ---
Patient Problems: Active and Suspected Problems (Last Reviewed 06/01/20 @ 21:[address] Yasmani Lowe, DO) COVID-19 (Acute) Fever and chills (Acute) Ascending cholangitis (Suspected) Gallstone pancreatitis (Acute) Subjective: Patient seen and examined. She was admitted with a complaint of shortness of breath and found to be positive for Covid. Feels much better today and has no complaints. Shortness of breath is improved. Review of symptoms otherwise negative. She has remained hemodynamically stable. Is on 2 L of oxygen. Vitals/I&O's: Vital Signs Temp Pulse Resp BP Pulse Ox 97.8 F 82 18 145/93 H 97 06/02/20 07:44 06/02/20 10:56 06/02/20 07:44 06/02/20 07:44 06/02/20 07:44 Oxygen Flow Rate (L/min) 2 Oxygen Delivery Method Nasal Cannula Weight: 178 lb 2.136 oz Body Mass Index (BMI) 34.7 Finger Stick Blood Glucose 109 Intake and Output for Last 24 Hours 05/31/20 06/01/20 06/02/20 23:59 23:59 23:59 Intake Total 900 / 900 Output Total 1150 / 1150 Balance -250 / -250 General: Alert, Oriented x3, Cooperative, No apparent distress HEENT: Atraumatic, PERRLA, EOMI, Normocephalic Oral: Moist Mucosa Neck: Supple, No JVD, Negative Carotid Bruits Lungs: - - Diminished breath sounds bibasally. No wheezes or crackles. On 2 L of oxygen. Cardiovascular: Regular rate, Regular Rhythm, Normal S1, Normal S2, No murmurs Abdomen: Bowel Sounds Present, Soft, Non Tender, Non-Distended, No Hepato-splenomegaly Extremities: No clubbing, No cyanosis, No edema, Capillary Refill Less than 3 Seconds Skin: No rashes, No breakdown Musculoskeletal: No Tenderness to Palpation of Joints or Extremities Lymphatic: No Cervical, Supraclavicular, or Inguinal Adenopathy Neurological: Cranial nerves II-XII grossly intact, Neuro grossly intact, Motor Exam 5/5 strength throughout Psych/Mental Status: Normal Affect, Appropriate, Alert and oriented to time, place, person, mood and affect Laboratory Results 06/01/20 17:30: WBC 4.5, RBC 4.40, Hgb 11.7 L, Hct 36.6 L, MCV 83.2, MCH 26.6 L, MCHC 32.0, RDW Std Deviation 43.8, RDW Coeff of Clarence 14.4, Plt Count 252, MPV 10.1, Immature Gran % (Auto) 0.200, Neut % (Auto) 70.0, Lymph % (Auto) 22.5, [place] % (Auto) 7.1, Eos % (Auto) 0.0, Baso % (Auto) 0.2, Absolute Neuts (auto) 3.1, Absolute Lymphs (auto) 1.01, Nucleated RBC % 0 06/01/20 17:30: Sodium 129 L, Potassium 3.6, Chloride 96 L, Carbon Dioxide 27.0, Anion Gap 6, BUN 7, Creatinine 0.65, Estim Creat Clear Calc 35.45, Est GFR (MDRD) Af Amer 114, Est GFR (MDRD) Non-Af 94, BUN/Creatinine Ratio 10.7, Glucose 123 H, Calcium 8.5 06/01/20 17:35: PT 12.5, INR 1.0, D-Dimer Quant (PE/DVT) 0.47 06/01/20 17:50: COVID-19 (CHRISTY) Detected 06/01/20 22:31: Total Bilirubin 0.80, Direct Bilirubin 0.30, AST 36, ALT 33, Alkaline Phosphatase 79, Lactate Dehydrogenase 209, Total Protein 7.1, Albumin 3.1 L, Globulin 4.0, Lipase 97 06/01/20 22:31: Lactic Acid 0.9 06/01/20 22:31: Procalcitonin 0.09 06/01/20 22:43: POC Glucose 116 H 06/02/20 06:10: WBC 3.3 L, RBC 4.36, Hgb 11.7 L, Hct 36.6 L, MCV 83.9, MCH 26.8 L, MCHC 32.0, RDW Std Deviation 43.8, RDW Coeff of Clarence 14.3, Plt Count 239, MPV 9.7, Immature Gran % (Auto) 0.000, Neut % (Auto) 73.7 H, Lymph % (Auto) 22.3, [place] % (Auto) 4.0, Eos % (Auto) 0.0, Baso % (Auto) 0.0, Absolute Neuts (auto) 2.4, Absolute Lymphs (auto) 0.73 L, Nucleated RBC % 0, Differential Comment SCANNED, Atypical Lymphocytes RARE, Reactive Lymphocytes RARE 06/02/20 06:10: Sodium 132 L, Potassium 3.9, Chloride 99, Carbon Dioxide 25.0, Anion Gap 8, BUN 10, Creatinine 0.64, Estim Creat Clear Calc 62.96, Est GFR (MDRD) Af Amer 118, Est GFR (MDRD) Non-Af 97, BUN/Creatinine Ratio 15.7, Glucose 202 H, Calcium 8.4 L 06/02/20 06:49: POC Glucose 213 H 06/02/20 10:53: POC Glucose 207 H Diagnostic Data Chest X-Ray 06/01/20 20:04 IMPRESSION: Left basilar atelectasis. Electronically Signed: Gato Gómez MD at 20:16 EDT Tel , Service support , Current Medications Acetaminophen (Acetaminophen 325 Mg Tablet) 650 mg PO Q6H PRN PRN PRN Reason: Pain Score 1-10/Temp > 100.7 F Last Admin: 06/01/20 22:44 Dose: 650 mg Documented by: Albuterol Sulfate (Albuterol Sulfate Hfa 6.7 Gm Inhaler (200 Puffs)) 2 puff IH Q6H PRN PRN PRN Reason: Asthma Amlodipine Besylate (Amlodipine 10 Mg Tablet) 10 mg PO DAILY [facility] Last Admin: 06/02/20 10:56 Dose: 10 mg Documented by: Atorvastatin Calcium (Atorvastatin Calcium 10 Mg Tablet) 10 mg PO QHS [facility] Last Admin: 06/01/20 22:44 Dose: 10 mg Documented by: Dexamethasone Sodium Phosphate (Dexamethasone 10 Mg/Ml Vial) 6 mg IV DAILY [facility] Last Admin: 06/02/20 10:54 Dose: 6 mg Documented by: Dextrose (Dextrose 50%-Water 25 Gm/50 Ml Disp.Syrin) 0 gm IV X1 PRN; Protocol PRN Reason: Hypoglycemia Enoxaparin Sodium (Enoxaparin 30 Mg/0.3 Ml Syringe) 30 mg SC BID [facility] Last Admin: 06/02/20 10:57 Dose: 30 mg Documented by: Ergocalciferol (Ergocalciferol 50,000 Unit Capsule) 50,000 unit PO QWEEK [facility] Glucagon (Glucagon 1 Mg/Ml Syringe) 1 mg IM .X1 PRN PRN Reason: Hypoglycemia Guaifenesin (Guaifenesin 10 Ml Udc (200mg/10ml)) 20 ml PO Q4H PRN PRN PRN Reason: COUGH Sodium Chloride () 250 mls @ 15 mls/hr IV .[id number] PRN PRN Reason: Saline Flush Sodium Chloride () 250 mls @ 15 mls/hr IV .[id number] PRN PRN Reason: Additional IVPB Infusion Insulin Human Lispro (Insulin Lispro 100 Unit/Ml Insuln.Pen) 0 unit SC TIDAC [facility]; Protocol Last Admin: 06/02/20 10:57 Dose: 1 unit Documented by: Levothyroxine Sodium (Levothyroxine 75 Mcg Tablet) 75 mcg PO DAILY [facility] Last Admin: 06/02/20 10:56 Dose: 75 mcg Documented by: Metformin HCl (Met[facility] Hcl 500 Mg Tablet) [facility] Last Admin: 06/02/20 07:52 Dose: 500 mg Documented by: Metoprolol Tartrate (Metoprolol Tartrate 25 Mg Tablet) 25 mg PO BID [facility] Last Admin: 06/02/20 10:56 Dose: 25 mg Documented by: Miscellaneous Information (Inhaler, Assist Devices 1 Each Spacer) 1 each INHALATION PRN PRN PRN Reason: WITH PROVENTIL MDI Nutritional Formula (Lactose Free) (Glucerna Shake 120 Ml Liquid) 120 ml PO 4X/DAYCM [facility] Last Admin: 06/02/20 12:35 Dose: 120 ml Documented by: Ondansetron HCl (Ondansetron 4 Mg/2 Ml Vial) 4 mg IV Q8H PRN PRN PRN Reason: NAUSEA/VOMITING Pantoprazole Sodium (Pantoprazole Sodium 40 Mg Tablet) 40 mg PO DAILY [facility] Last Admin: 06/02/20 10:56 Dose: 40 mg Documented by: Sodium Chloride (0.9% Saline Lock 10 Ml Syringe) 10 - 40 ml IV UD PRN PRN Reason: SALINE FLUSH Last Admin: 06/02/20 10:56 Dose: 10 ml Documented by: STROKE Vital Signs/Narrative: Vital Signs Pulse 06/02/20 10:56 82 Medical Necessity - Tobacco Use Smoking Status: Never smoker Assessment/Plan All Active Problems (Last Reviewed 06/01/20 @ 21:[address] Yasmani Lowe, DO) COVID-19 (Acute) Fever and chills (Acute) Gallstone pancreatitis (Acute) # Acute hypoxic respiratory insufficiency due to COVI 19 infection On IV dexamethasone. Infectious disease consulted. Currently on 2 L of oxygen. Titrate oxygen to maintain saturation above 90%. Chest x-ray showed left basilar atelectasis but showed no evidence of infection. Await ID recommendations. On breathing treatments with bronchodilators. #Acute COVID-19 infection: As above. #Asthma: On bronchodilators. Titrate oxygen to maintain saturation above 90%. #Hyponatremia: Today was 129 on admission and is now 132. Hydrochlorothiazide on hold. #Type 2 diabetes mellitus: On Metformin 500 mg twice daily. Insulin sliding scale. Accu-Cheks AC at bedtime. #Hypertension: Amlodipine and metoprolol DVT prophylaxis: On Lovenox 30 mg twice daily. Inpatient E&M: [id number] [facility] Hosp L2
--- NOTE | 2020-06-02 15:17 | CON.PCM_ITS ---
Problem List (1) COVID-19 Status: Acute Reason for Consult: covid Consulted by: Dr. Burton History of Present Illness: The patient is a 75 year old F who presented with sx starting 8 days ago, c/o diarrhea, aches, chills, cough. Loss of taste. has not been sick, not been tested. No known sick contacts. Feeling better since arrival. On dexamethasone. Full ROS performed and neg except as noted above. - Medical History Past Medical History (Chronic Problems): Chronic Problems (Last Reviewed 06/01/20 @ 21:[address] Yasmani Lowe, DO) Asthma (Chronic) Arthritis (Chronic) Seasonal allergies (Chronic) Diabetes (Chronic) Hyperlipemia (Chronic) Osteopenia (Chronic) Hypothyroidism (Chronic) GERD (gastroesophageal reflux disease) (Chronic) Essential hypertension (Chronic) Type 2 diabetes mellitus (Chronic) Hypothyroidism (Chronic) Hypertension (Chronic) Asthma (Chronic) Hyperlipidemia (Chronic) GERD (gastroesophageal reflux disease) (Chronic) Allergies/Adverse Reactions: Allergies Penicillins Allergy (Verified 06/01/20 16:59) Rash Sulfa (Sulfonamide Antibiotics) Allergy (Verified 06/01/20 16:59) Rash sertraline Adverse Reaction (Verified 06/01/20 16:59) Other CALCIUM CITRATE Adverse Reaction (Uncoded 06/01/20 16:59) Other Home Medications: Ambulatory Orders Medication Instructions Recorded Albuterol Sulfate [Albuterol 2 puff INHALATION Q6H PRN PRN 03/19/20 Sulfate HFA] Amlodipine [Norvasc] 10 mg PO DAILY 03/19/20 Atorvastatin Calcium 10 mg PO QHS 03/19/20 Ergocalciferol (Vitamin D2) 50,000 unit PO QWEEK 03/19/20 [Vitamin D2] Irbesartan/Hydrochlorothiazide 1 ea PO DAILY 03/19/20 [Irbesartan-Hctz 300-12.5 mg Tb] Levothyroxine [Synthroid] 75 mcg PO DAILY 03/19/20 Metformin HCl [Glucophage] 1 tab PO BID 03/19/20 Metoprolol Tartrate 25 mg PO BID 03/19/20 fluticasone propionate 110 2 puff INHALATION BID 05/01/20 mcg/actuation HFA aerosol inhaler potassium chloride 8 mEq 8 meq PO BID 05/01/20 tablet,extended release pantoprazole 40 mg tablet,delayed 40 mg PO DAILY #90 tab 05/29/20 release - Social History Tobacco Use: non-smoker Vital Signs Temp Pulse Resp BP Pulse Ox 97.9 F 86 20 H 132/85 H 94 06/02/20 14:50 06/02/20 14:50 06/02/20 14:50 06/02/20 14:50 06/02/20 14:50 Oxygen Flow Rate (L/min) 2 Oxygen Delivery Method Room Air Weight: 80.8 kg Body Mass Index (BMI) 34.7 Finger Stick Blood Glucose 109 Laboratory Tests Past 24 Hrs 06/01/20 06/01/20 06/01/20 17:30 17:30 17:35 WBC 4.5 RBC 4.40 Hgb 11.7 L Hct 36.6 L MCV 83.2 MCH 26.6 L MCHC 32.0 RDW Std Deviation 43.8 RDW Coeff of Clarence 14.4 Plt Count 252 MPV 10.1 Immature Gran % (Auto) 0.200 Neut % (Auto) 70.0 Lymph % (Auto) 22.5 [place] % (Auto) 7.1 Eos % (Auto) 0.0 Baso % (Auto) 0.2 Absolute Neuts (auto) 3.1 Absolute Lymphs (auto) 1.01 Nucleated RBC % 0 Differential Comment Atypical Lymphocytes Reactive Lymphocytes PT 12.5 INR 1.0 D-Dimer Quant (PE/DVT) 0.47 Sodium 129 L Potassium 3.6 Chloride 96 L Carbon Dioxide 27.0 Anion Gap 6 BUN 7 Creatinine 0.65 Estim Creat Clear Calc 35.45 Est GFR (MDRD) Af Amer 114 Est GFR (MDRD) Non-Af 94 BUN/Creatinine Ratio 10.7 Glucose 123 H Lactic Acid Calcium 8.5 Total Bilirubin Direct Bilirubin AST ALT Alkaline Phosphatase Lactate Dehydrogenase Total Protein Albumin Globulin Lipase Procalcitonin COVID-19 (CHRISTY) 06/01/20 06/01/20 06/01/20 17:50 22:31 22:31 WBC RBC Hgb Hct MCV MCH MCHC RDW Std Deviation RDW Coeff of Clarence Plt Count MPV Immature Gran % (Auto) Neut % (Auto) Lymph % (Auto) [place] % (Auto) Eos % (Auto) Baso % (Auto) Absolute Neuts (auto) Absolute Lymphs (auto) Nucleated RBC % Differential Comment Atypical Lymphocytes Reactive Lymphocytes PT INR D-Dimer Quant (PE/DVT) Sodium Potassium Chloride Carbon Dioxide Anion Gap BUN Creatinine Estim Creat Clear Calc Est GFR (MDRD) Af Amer Est GFR (MDRD) Non-Af BUN/Creatinine Ratio Glucose Lactic Acid 0.9 Calcium Total Bilirubin 0.80 Direct Bilirubin 0.30 AST 36 ALT 33 Alkaline Phosphatase 79 Lactate Dehydrogenase 209 Total Protein 7.1 Albumin 3.1 L Globulin 4.0 Lipase 97 Procalcitonin COVID-19 (CHRISTY) Detected 06/01/20 06/02/20 06/02/20 22:31 06:10 06:10 WBC 3.3 L RBC 4.36 Hgb 11.7 L Hct 36.6 L MCV 83.9 MCH 26.8 L MCHC 32.0 RDW Std Deviation 43.8 RDW Coeff of Clarence 14.3 Plt Count 239 MPV 9.7 Immature Gran % (Auto) 0.000 Neut % (Auto) 73.7 H Lymph % (Auto) 22.3 [place] % (Auto) 4.0 Eos % (Auto) 0.0 Baso % (Auto) 0.0 Absolute Neuts (auto) 2.4 Absolute Lymphs (auto) 0.73 L Nucleated RBC % 0 Differential Comment SCANNED Atypical Lymphocytes RARE Reactive Lymphocytes RARE PT INR D-Dimer Quant (PE/DVT) Sodium 132 L Potassium 3.9 Chloride 99 Carbon Dioxide 25.0 Anion Gap 8 BUN 10 Creatinine 0.64 Estim Creat Clear Calc 62.96 Est GFR (MDRD) Af Amer 118 Est GFR (MDRD) Non-Af 97 BUN/Creatinine Ratio 15.7 Glucose 202 H Lactic Acid Calcium 8.4 L Total Bilirubin Direct Bilirubin AST ALT Alkaline Phosphatase Lactate Dehydrogenase Total Protein Albumin Globulin Lipase Procalcitonin 0.09 COVID-19 (CHRISTY) - Other Studies Radiology: [] reviewed Other Studies: [] Route of nutrition/ use of supplements: [] Nutritional Intake: [] IV Site: [] Pineda Catheter: [] - Physical Exam General: Alert, Oriented x3, Cooperative, No apparent distress HEENT: Atraumatic, PERRLA, EOMI Neck: Supple, No Nodes Lungs: Clear to auscultation, Diminished Cardiovascular: Regular rate, Regular Rhythm Abdomen: Soft, Non Tender, Non-Distended Extremities: No edema Skin: No rashes IV Site: Peripheral, without redness Musculoskeletal: No Tenderness to Palpation of Joints or Extremities Neurological: Cranial nerves II-XII grossly intact - Assessment/Plan Antibiotics: [] Assessment/Plan: [] Active and Suspected Problems (Last Reviewed 06/01/20 @ 21:[address] Yasmani Lowe, DO) COVID-19 (Acute) Fever and chills (Acute) Ascending cholangitis (Suspected) Gallstone pancreatitis (Acute) covid with hypoxia - initially 89% on RA, feeling better, O2 better. Now on RA. Ok for discharge home on O2 as needed. Complete 10 days total of dex. Recommend get tested and he should quarantine 14 days. She should quarantine for 6 more days. Will follow, thank you.
--- NOTE | 2020-06-02 15:25 | CASEMGMT ---
RN CM called patient for initial transition planning/care coordination assessment. RN CM introduced self and role at [facility]. Patient is alert and oriented. Patient willing to participate in assessment and is able to answer all questions appropriately. Care providers, pharmacy, and demographics verified. Patient wishes to discharge home, denies need for home health at this time. Patient states she has no further needs or concerns at this time. CM to follow for discharge planning needs that may arise. PCP: Kyle Specialists: none Preferred Pharmacy: [facility] Insurance: [email or web address] [facility] Prescription Benefit: yes Living Will/HPOA: none LNOK: Living Arrangements: Patient lives with in a 1 story home with ramp to enter the home. Patient states she is independent at home. Transportation: DME/HHC: Patient states she has cane, walker, shower chair, grab bars, and nebulizer at home. Patient denies previous HHC. Will monitor for need for home oxygen at discharge. Disposition Plan: Patient to discharge home with family support and follow-up plans in place. Pamela VERMA, RN, CM
--- NOTE | 2020-06-02 16:04 | CHAPLAIN ---
Type of Pastoral Visit ___ Initial Visit ___ Follow-up Visit ___ On-call Visit ___ General Patient Visit ___ Spiritual Assessment ___ Family Conference ___ Bereavement ___ Rapid Response ___ Code Blue _x__ Other (describe below) Pastoral Care Referral From _x__ Patient ___ Family ___ Nurse ___ Physician ___ Regulatory Process Manager ___ Brass Burnisher ___ Other (describe below) Sacrament/Intervention _x__ Active listening ___ Anointing ___ Bahai ___ Bereavement ___ Communion ___ Radha exploration ___ ___ Life review _x__ Prayer ___ Reconciliation ___ Sacrament of Sick ___ Supportive presence ___ Wedding ___ Other (describe below) Pastoral Comments phone call made to patient isolation room; pt is able to talk and welcomes the support; pt is optimistic about improvement and asks for prayer for recovery; pt also requests contact to be made with her methodist for prayer support; barge loader will follow up with this request
[2020-06-02 16:56] LABS: Bedside Glucose 210 mg/dL (70-110)
[2020-06-02 22:08] VITALS: BP 141/88; PULSE 93; RESP 18; TEMP 36.9; O2SAT 92
[2020-06-02] MEDS: Atorvastatin Calcium 10 MG Tablet PO (22:20)
[2020-06-02 22:21] VITALS: PULSE 93
[2020-06-02 23:21] LABS: Bedside Glucose 197 mg/dL (70-110)
[2020-06-03] VITALS (9 sets, daily range): BP systolic 123–151; BP diastolic 63–79; PULSE 80–98; RESP 16–18; TEMP 36.3–38.6; O2SAT 93–95
[2020-06-03] MEDS: guaiFENesin 10 ML UDC (200MG/10ML) 20 ML PO ×3 (02:01→16:52)
[2020-06-03 07:16] LABS: Bedside Glucose 119 mg/dL (70-110)
[2020-06-03 07:27] LABS: Absolute Neutrophil Count 8.8 X10^3/uL (2.0-7.7); Basophil# 0.01 X10^3/uL; Basophil% 0.1 % (0-1); Hematocrit 35.8 % (37-47); Hemoglobin 11.5 g/dL (12.0-15.0); Lymphocyte % 10.5 % (19-41); Mean Corp Hgb Conc 32.1 g/dL (32-36); Mean Corpuscular Hgb 26.7 pg (27.0-32.0); Mean Corpuscular Volume 83.1 fL (81-99); Mean Platelet Vol. 9.9 fl (6.2-12.0); Monocyte# 0.48 X10^3/uL; Monocyte% 4.6 % (0-10); NRBC Flagged by Analyzer 0 % (0-5); Neutrophil % 84.4 % (47-70); Platelet Count 308 K/mm3 (150-450); RBC Distribution Width CV 14.3 % (11.6-14.6); RBC Distribution Width SD 43.4 fl (35.1-43.9); Red Blood Count 4.31 M/mm3 (4.2-5.4); White Blood Count 10.4 K/mm3 (4.4-11.0)
[2020-06-03 07:54] LABS: Anion Gap 7 (5-15); BUN 12 mg/dL (7-18); Calcium,Total 8.9 mg/dL (8.5-10.1); Chloride 97 mmol/L (98-107); EST Glomerular Filtration Rate 86 mL/min (>60); Est Glom Filt Rate - Afr Amer 104 mL/min (>60); Estimated Creatinine Clearance 35.45 ml/min; Glucose 124 mg/dL (74-106); Potassium 3.6 mmol/L (3.5-5.1); Sodium Level 131 mmol/L (136-145)
[2020-06-03] MEDS: Levothyroxine 75 MCG Tablet PO (08:20)
[2020-06-03] MEDS: Metoprolol Tartrate 25 MG Tablet PO ×2 (08:20→21:28)
[2020-06-03] MEDS: Enoxaparin 30 MG/0.3 ML Syringe SC ×2 (08:21→21:28)
[2020-06-03] MEDS: amLODIPine 10 MG Tablet PO (08:21)
[2020-06-03] MEDS: Pantoprazole Sodium 40 MG Tablet PO (08:21)
[2020-06-03] MEDS: dexAMETHasone 10 MG/ML Vial 6 MG IV (08:54)
[2020-06-03] MEDS: Acetaminophen 325 MG Tablet 650 MG PO ×2 (08:55→16:52)
[2020-06-03] MEDS: 0.9% Saline Lock 10 ML Syringe IV (08:55)
[2020-06-03] MEDS: metFORMIN HCl 500 MG Tablet PO ×2 (08:55→16:52)
--- NOTE | 2020-06-03 10:59 | PN_ITS ---
Patient Problems: Active and Suspected Problems (Last Reviewed 06/01/20 @ 21:[address] Yasmani Lowe, DO) COVID-19 (Acute) Fever and chills (Acute) Ascending cholangitis (Suspected) Gallstone pancreatitis (Acute) Subjective: Patient seen and examined this morning. She complained of feeling weak and tired. Says she got more short of breath overnight and required breathing treatments to feel better. She still has a mild cough which is nonproductive. She denies any chest pain or palpitations, dizziness, nausea or vomiting. R eview of systems otherwise negative. She has remained hemodynamically stable. Vitals/I&O's: Vital Signs Temp Pulse Resp BP Pulse Ox 99.0 F 80 18 123/63 H 93 06/03/20 10:20 06/03/20 10:20 06/03/20 10:20 06/03/20 10:20 06/03/20 10:20 Oxygen Flow Rate (L/min) 2 Oxygen Delivery Method Nasal Cannula Weight: 178 lb 2.136 oz Body Mass Index (BMI) 34.7 Finger Stick Blood Glucose 109 Intake and Output for Last 24 Hours 06/01/20 06/02/20 06/03/20 23:59 23:59 23:59 Intake Total 1150 / 1150 Output Total 1600 / 1600 Balance -450 / -450 General: Alert, Oriented x3, Cooperative, looks weak HEENT: Atraumatic, PERRLA, EOMI, Normocephalic Oral: Moist Mucosa Neck: Supple, No JVD, Negative Carotid Bruits Lungs: - - Diminished breath sounds bibasally. No wheezes or crackles. On 2 L of oxygen. Cardiovascular: Regular rate, Regular Rhythm, Normal S1, Normal S2, No murmurs Abdomen: Bowel Sounds Present, Soft, Non Tender, Non-Distended, No Hepato- splenomegaly Extremities: No clubbing, No cyanosis, No edema, Capillary Refill Less than 3 Seconds Skin: No rashes, No breakdown Musculoskeletal: No Tenderness to Palpation of Joints or Extremities Lymphatic: No Cervical, Supraclavicular, or Inguinal Adenopathy Neurological: Cranial nerves II-XII grossly intact, Neuro grossly intact, Motor Exam 5/5 strength throughout Psych/Mental Status: Normal Affect, Appropriate, Alert and oriented to time, place, person, mood and affect Laboratory Results 06/02/20 10:53: POC Glucose 207 H 06/02/20 16:32: POC Glucose 210 H 06/02/20 22:07: POC Glucose 197 H 06/03/20 06:45: POC Glucose 119 H 06/03/20 06:52: WBC 10.4, RBC 4.31, Hgb 11.5 L, Hct 35.8 L, MCV 83.1, MCH 26.7 L , MCHC 32.1, RDW Std Deviation 43.4, RDW Coeff of Clarence 14.3, Plt Count 308, MPV 9.9, Immature Gran % (Auto) 0.400, Neut % (Auto) 84.4 H, Lymph % (Auto) 10.5 L, [place] % (Auto) 4.6, Eos % (Auto) 0.0, Baso % (Auto) 0.1, Absolute Neuts (auto) 8.8 H, Absolute Lymphs (auto) 1.10, Nucleated RBC % 0 06/03/20 06:52: Sodium 131 L, Potassium 3.6, Chloride 97 L, Carbon Dioxide 27.0, Anion Gap 7, BUN 12, Creatinine 0.70, Estim Creat Clear Calc 35.45, Est GFR (MDRD) Af Amer 104, Est GFR (MDRD) Non-Af 86, BUN/Creatinine Ratio 17.0, Glucose 124 H, Calcium 8.9 Current Medications Acetaminophen (Acetaminophen 325 Mg Tablet) 650 mg PO Q6H PRN PRN PRN Reason: Pain Score 1-10/Temp > 100.7 F Last Admin: 06/03/20 08:55 Dose: 650 mg Documented by: Albuterol Sulfate (Albuterol Sulfate Hfa 6.7 Gm Inhaler (200 Puffs)) 2 puff IH Q6H PRN PRN PRN Reason: Asthma Last Admin: 06/03/20 01:37 Dose: 2 puff Documented by: Amlodipine Besylate (Amlodipine 10 Mg Tablet) 10 mg PO DAILY [facility] Last Admin: 06/03/20 08:21 Dose: 10 mg Documented by: Atorvastatin Calcium (Atorvastatin Calcium 10 Mg Tablet) 10 mg PO QHS [facility] Last Admin: 06/02/20 22:20 Dose: 10 mg Documented by: Dexamethasone Sodium Phosphate (Dexamethasone 10 Mg/Ml Vial) 6 mg IV DAILY [facility] Last Admin: 06/03/20 08:54 Dose: 6 mg Documented by: Dextrose (Dextrose 50%-Water 25 Gm/50 Ml Disp.Syrin) 0 gm IV X1 PRN; Protocol PRN Reason: Hypoglycemia Enoxaparin Sodium (Enoxaparin 30 Mg/0.3 Ml Syringe) 30 mg SC BID [facility] Last Admin: 06/03/20 08:21 Dose: 30 mg Documented by: Ergocalciferol (Ergocalciferol 50,000 Unit Capsule) 50,000 unit PO QWEEK [facility] Glucagon (Glucagon 1 Mg/Ml Syringe) 1 mg IM .X1 PRN PRN Reason: Hypoglycemia Guaifenesin (Guaifenesin 10 Ml Udc (200mg/10ml)) 20 ml PO Q4H PRN PRN PRN Reason: COUGH Last Admin: 06/03/20 08:55 Dose: 20 ml Documented by: Sodium Chloride () 250 mls @ 15 mls/hr IV .[id number] PRN PRN Reason: Saline Flush Sodium Chloride () 250 mls @ 15 mls/hr IV .[id number] PRN PRN Reason: Additional IVPB Infusion Insulin Human Lispro (Insulin Lispro 100 Unit/Ml Insuln.Pen) 0 unit SC TIDAC [facility]; Protocol Last Admin: 06/03/20 06:45 Dose: Not Given Documented by: Levothyroxine Sodium (Levothyroxine 75 Mcg Tablet) 75 mcg PO DAILY [facility] Last Admin: 06/03/20 08:20 Dose: 75 mcg Documented by: Metformin HCl (Metformin Hcl 500 Mg Tablet) 500 mg PO BIDCM [facility] Last Admin: 06/03/20 08:55 Dose: 500 mg Documented by: Metoprolol Tartrate (Metoprolol Tartrate 25 Mg Tablet) 25 mg PO BID [facility] Last Admin: 06/03/20 08:20 Dose: 25 mg Documented by: Miscellaneous Information (Inhaler, Assist Devices 1 Each Spacer) 1 each INHALATION PRN PRN PRN Reason: WITH PROVENTIL MDI Nutritional Formula (Lactose Free) (Glucerna Shake 120 Ml Liquid) 120 ml PO 4X/DAYCM [facility] Last Admin: 06/03/20 09:39 Dose: Not Given Documented by: Ondansetron HCl (Ondansetron 4 Mg/2 Ml Vial) 4 mg IV Q8H PRN PRN PRN Reason: NAUSEA/VOMITING Pantoprazole Sodium (Pantoprazole Sodium 40 Mg Tablet) 40 mg PO DAILY [facility] Last Admin: 06/03/20 08:21 Dose: 40 mg Documented by: Sodium Chloride (0.9% Saline Lock 10 Ml Syringe) 10 - 40 ml IV UD PRN PRN Reason: SALINE FLUSH Last Admin: 06/03/20 08:55 Dose: 10 ml Documented by: STROKE Vital Signs/Narrative: Vital Signs Temp Pulse Resp BP Pulse Ox 06/03/20 10:20 99.0 F 80 18 123/63 H 93 06/03/20 08:20 98 06/03/20 08:00 101.4 F H 98 18 151/76 H 93 Medical Necessity - Tobacco Use Smoking Status: Never smoker Assessment/Plan All Active Problems (Last Reviewed 06/01/20 @ 21:[address] Yasmani Lowe, DO) COVID-19 (Acute) Fever and chills (Acute) Gallstone pancreatitis (Acute) # Acute hypoxic respiratory insufficiency due to COVI 19 infection * On IV dexamethasone. Infectious disease on board. * Currently on 2 L of oxygen. Titrate oxygen to maintain saturation above 90%. * Chest x-ray showed left basilar atelectasis but showed no evidence of infection. * On breathing treatments with bronchodilators. * feels weak today, and doesnt think she can go home * #Acute COVID-19 infection: As above. #Asthma: On bronchodilators. Titrate oxygen to maintain saturation above 90%. #Hyponatremia: Today was 129 on admission and is now 131. Hydrochlorothiazide on hold. #Type 2 diabetes mellitus: On Metformin 500 mg twice daily. Insulin sliding scale. Accu-Cheks AC at bedtime. #Hypertension: Amlodipine and metoprolol DVT prophylaxis: On Lovenox 30 mg twice daily. Disposition: for likely dc home tomorrow Inpatient E&M: [id number] Subs Hosp L2
[2020-06-03 11:36] LABS: Bedside Glucose 164 mg/dL (70-110)
[2020-06-03] MEDS: Insulin Lispro 100 UNIT/ML INSULN.PEN SC ×2 (12:16→16:55)
--- NOTE | 2020-06-03 15:35 | PN.ID_ITS ---
Patient Problems: Active and Suspected Problems (Last Reviewed 06/01/20 @ 21:[address] Yasmani Lowe, DO) COVID-19 (Acute) Fever and chills (Acute) Ascending cholangitis (Suspected) Gallstone pancreatitis (Acute) Subjective: Breathing ok, no fever, some chronic diarrhea - Physical Exam Vitals/I&O's: Vital Signs Temp Pulse Resp BP Pulse Ox 99.0 F 80 18 123/63 H 93 06/03/20 10:20 06/03/20 10:20 06/03/20 10:20 06/03/20 10:20 06/03/20 10:20 Oxygen Flow Rate (L/min) 2 Oxygen Delivery Method Nasal Cannula Weight: 80.8 kg Body Mass Index (BMI) 34.7 Finger Stick Blood Glucose 109 Intake and Output for Last 24 Hours 06/01/20 06/02/20 06/03/20 23:59 23:59 23:59 Intake Total 1150 / 1150 340 / 340 Output Total 1600 / 1600 425 / 425 Balance -450 / -450 -85 / -85 General: Alert, Cooperative, No apparent distress Lungs: Clear to auscultation Cardiovascular: Regular rate, Regular Rhythm Abdomen: Soft, Non Tender, Non-Distended Skin: No rashes Laboratory Results 06/02/20 16:32: POC Glucose 210 H 06/02/20 22:07: POC Glucose 197 H 06/03/20 06:45: POC Glucose 119 H 06/03/20 06:52: WBC 10.4, RBC 4.31, Hgb 11.5 L, Hct 35.8 L, MCV 83.1, MCH 26.7 L , MCHC 32.1, RDW Std Deviation 43.4, RDW Coeff of Clarence 14.3, Plt Count 308, MPV 9.9, Immature Gran % (Auto) 0.400, Neut % (Auto) 84.4 H, Lymph % (Auto) 10.5 L, [place] % (Auto) 4.6, Eos % (Auto) 0.0, Baso % (Auto) 0.1, Absolute Neuts (auto) 8.8 H, Absolute Lymphs (auto) 1.10, Nucleated RBC % 0 06/03/20 06:52: Sodium 131 L, Potassium 3.6, Chloride 97 L, Carbon Dioxide 27.0, Anion Gap 7, BUN 12, Creatinine 0.70, Estim Creat Clear Calc 35.45, Est GFR (MDRD) Af Amer 104, Est GFR (MDRD) Non-Af 86, BUN/Creatinine Ratio 17.0, Glucose 124 H, Calcium 8.9 06/03/20 11:27: POC Glucose 164 H Current Medications Acetaminophen (Acetaminophen 325 Mg Tablet) 650 mg PO Q6H PRN PRN PRN Reason: Pain Score 1-10/Temp > 100.7 F Last Admin: 06/03/20 08:55 Dose: 650 mg Documented by: Albuterol Sulfate (Albuterol Sulfate Hfa 6.7 Gm Inhaler (200 Puffs)) 2 puff IH Q6H PRN PRN PRN Reason: Asthma Last Admin: 06/03/20 01:37 Dose: 2 puff Documented by: Amlodipine Besylate (Amlodipine 10 Mg Tablet) 10 mg PO DAILY [facility] Last Admin: 06/03/20 08:21 Dose: 10 mg Documented by: Atorvastatin Calcium (Atorvastatin Calcium 10 Mg Tablet) 10 mg PO QHS [facility] Last Admin: 06/02/20 22:20 Dose: 10 mg Documented by: Dexamethasone Sodium Phosphate (Dexamethasone 10 Mg/Ml Vial) 6 mg IV DAILY [facility] Last Admin: 06/03/20 08:54 Dose: 6 mg Documented by: Dextrose (Dextrose 50%-Water 25 Gm/50 Ml Disp.Syrin) 0 gm IV X1 PRN; Protocol PRN Reason: Hypoglycemia Enoxaparin Sodium (Enoxaparin 30 Mg/0.3 Ml Syringe) 30 mg SC BID [facility] Last Admin: 06/03/20 08:21 Dose: 30 mg Documented by: Ergocalciferol (Ergocalciferol 50,000 Unit Capsule) 50,000 unit PO QWEEK [facility] Glucagon (Glucagon 1 Mg/Ml Syringe) 1 mg IM .X1 PRN PRN Reason: Hypoglycemia Guaifenesin (Guaifenesin 10 Ml Udc (200mg/10ml)) 20 ml PO Q4H PRN PRN PRN Reason: COUGH Last Admin: 06/03/20 08:55 Dose: 20 ml Documented by: Sodium Chloride () 250 mls @ 15 mls/hr IV .[id number] PRN PRN Reason: Saline Flush Sodium Chloride () 250 mls @ 15 mls/hr IV .[id number] PRN PRN Reason: Additional IVPB Infusion Insulin Human Lispro (Insulin Lispro 100 Unit/Ml Insuln.Pen) 0 unit SC TIDAC [facility]; Protocol Last Admin: 06/03/20 12:16 Dose: 1 unit Documented by: Levothyroxine Sodium (Levothyroxine 75 Mcg Tablet) 75 mcg PO DAILY [facility] Last Admin: 06/03/20 08:20 Dose: 75 mcg Documented by: Metformin HCl (Metformin Hcl 500 Mg Tablet) [facility] Last Admin: 06/03/20 08:55 Dose: 500 mg Documented by: Metoprolol Tartrate (Metoprolol Tartrate 25 Mg Tablet) 25 mg PO BID [facility] Last Admin: 06/03/20 08:20 Dose: 25 mg Documented by: Miscellaneous Information (Inhaler, Assist Devices 1 Each Spacer) 1 each INHALATION PRN PRN PRN Reason: WITH PROVENTIL MDI Nutritional Formula (Lactose Free) (Glucerna Shake 120 Ml Liquid) [facility] Last Admin: 06/03/20 12:18 Dose: Not Given Documented by: Ondansetron HCl (Ondansetron 4 Mg/2 Ml Vial) 4 mg IV Q8H PRN PRN PRN Reason: NAUSEA/VOMITING Pantoprazole Sodium (Pantoprazole Sodium 40 Mg Tablet) 40 mg PO DAILY [facility] Last Admin: 06/03/20 08:21 Dose: 40 mg Documented by: Sodium Chloride (0.9% Saline Lock 10 Ml Syringe) 10 - 40 ml IV UD PRN PRN Reason: SALINE FLUSH Last Admin: 06/03/20 08:55 Dose: 10 ml Documented by: Medical Necessity - Tobacco Use Smoking Status: Never smoker Route of nutrition/ use of supplements: [] Nutritional Intake: [] IV Site: [] Pineda Catheter: [] - Assessment/Plan Antibiotics: [] Assessment/Plan: [] Active and Suspected Problems (Last Reviewed 06/01/20 @ 21:[address] Yasmani Lowe, DO) COVID-19 (Acute) Fever and chills (Acute) Ascending cholangitis (Suspected) Gallstone pancreatitis (Acute) covid with hypoxia - initially 89% on RA, feeling better, O2 better. Now on RA. Ok for discharge home on O2 as needed. Complete 10 days total of dex. Recommend get tested and he should quarantine 14 days. She should quarantine for 5 more days. Will follow
[2020-06-03] MEDS: Glucerna Shake 120 ML LIQUID PO ×2 (16:51→21:28)
[2020-06-03 17:21] LABS: Bedside Glucose 224 mg/dL (70-110)
[2020-06-03] MEDS: Atorvastatin Calcium 10 MG Tablet PO (21:28)
[2020-06-03 23:15] LABS: Bedside Glucose 213 mg/dL (70-110)
[2020-06-04 03:30] VITALS: BP 160/94; PULSE 84; RESP 18; TEMP 36.3; O2SAT 95
[2020-06-04] MEDS: INHALER, ASSIST DEVICES 1 EACH SPACER INHALATION (03:46)
[2020-06-04] MEDS: guaiFENesin 10 ML UDC (200MG/10ML) 20 ML PO ×2 (04:03→08:49)
[2020-06-04 07:35] LABS: Bedside Glucose 147 mg/dL (70-110)
[2020-06-04 08:43] VITALS: BP 148/85; PULSE 93; RESP 18; TEMP 37.4; O2SAT 97
[2020-06-04] MEDS: Glucerna Shake 120 ML LIQUID PO ×2 (08:46→11:46)
[2020-06-04 08:47] VITALS: BP 148/85; PULSE 93
[2020-06-04] MEDS: Metoprolol Tartrate 25 MG Tablet PO (08:47)
[2020-06-04] MEDS: Pantoprazole Sodium 40 MG Tablet PO (08:47)
[2020-06-04] MEDS: metFORMIN HCl 500 MG Tablet PO (08:47)
[2020-06-04] MEDS: Acetaminophen 325 MG Tablet 650 MG PO (08:48)
[2020-06-04] MEDS: Levothyroxine 75 MCG Tablet PO (08:48)
[2020-06-04] MEDS: Enoxaparin 30 MG/0.3 ML Syringe SC (08:48)
[2020-06-04] MEDS: dexAMETHasone 10 MG/ML Vial 6 MG IV (08:49)
[2020-06-04] MEDS: 0.9% Saline Lock 10 ML Syringe IV (08:50)
[2020-06-04] MEDS: amLODIPine 10 MG Tablet PO (08:53)
[2020-06-04 11:52] VITALS: O2SAT 86; O2SAT 91; O2SAT 95
[2020-06-04 12:04] VITALS: BP 159/82; PULSE 84; RESP 18; TEMP 36.7; O2SAT 94
[2020-06-04] MEDS: Insulin Lispro 100 UNIT/ML INSULN.PEN SC (12:13)
[2020-06-04 12:26] LABS: Bedside Glucose 206 mg/dL (70-110)
--- NOTE | 2020-06-04 13:06 | PCM.DC ---
- Discharge Diagnoses Current Active Problems: Current Active and Chronic Problems (Last Reviewed 06/01/20 @ 21:[address] Yasmani Lowe, DO) COVID-19 (Acute) Fever and chills (Acute) Asthma (Chronic) Arthritis (Chronic) Seasonal allergies (Chronic) Diabetes (Chronic) Hyperlipemia (Chronic) Osteopenia (Chronic) Hypothyroidism (Chronic) GERD (gastroesophageal reflux disease) (Chronic) Essential hypertension (Chronic) Gallstone pancreatitis (Acute) Type 2 diabetes mellitus (Chronic) Hypothyroidism (Chronic) Hypertension (Chronic) Asthma (Chronic) Hyperlipidemia (Chronic) GERD (gastroesophageal reflux disease) (Chronic) You will use the following diet at home:: Cardiac Your food should be the consistency of: Regular Your liquids should be the consistency of: Regular/Thin Discharge Activity: Return to Normal Activity Weight Bearing Status: Weight bearing as tolerated Call your doctor if you observe: Fever of 101 or Higher, Shortness of breath, Dizziness, Swelling in the ankles, Chest pain, Increased palpitations (irregular heartbeat), Uncontrolled pain Instructions: ED Dyspnea Additional Instructions: use oxygen as needed for shortness of breath. To self isolate for 5 more days, till 06/09/2020 for a total of 14 days isolation. Allergies/Adverse Reactions: Allergies Penicillins Allergy (Verified 06/01/20 16:59) Rash Sulfa (Sulfonamide Antibiotics) Allergy (Verified 06/01/20 16:59) Rash sertraline Adverse Reaction (Verified 06/01/20 16:59) Other CALCIUM CITRATE Adverse Reaction (Uncoded 06/01/20 16:59) Other Medications to take at Discharge Albuterol Sulfate [Albuterol Sulfate HFA] 2 puff INHALATION Q6H PRN PRN 03/19/20 Amlodipine [Norvasc] 10 mg PO DAILY 03/19/20 Atorvastatin Calcium 10 mg PO QHS 03/19/20 Ergocalciferol (Vitamin D2) [Vitamin D2] 50,000 unit PO QWEEK 03/19/20 Irbesartan/Hydrochlorothiazide [Irbesartan-Hctz 300-12.5 mg Tb] 1 ea PO DAILY 03/19/20 Levothyroxine [Synthroid] 75 mcg PO DAILY 03/19/20 Metformin HCl [Glucophage] 1 tab PO BID 03/19/20 Metoprolol Tartrate 25 mg PO BID 03/19/20 fluticasone propionate 110 mcg/actuation HFA aerosol inhaler 2 puff INHALATION BID 05/01/20 potassium chloride 8 mEq tablet,extended release 8 meq PO BID 05/01/20 pantoprazole 40 mg tablet,delayed release 40 mg PO DAILY #90 tab 05/29/20 Dexamethasone 6 mg PO DAILY 6 Days #6 tab 06/04/20 The following prescriptions were given: Dexamethasone 6 mg PO DAILY 6 Days #6 tab Transmission Status: Pending to [facility] Primary Care Physician: Shoshana Condon MD [Primary Care Provider] - Please follow up with your Primary Care Physician in: 1-2 weeks Test Results: Test results from this visit will be discussed in further detail at your follow-up appointment, if applicable. Proposed Discharge Date: 06/04/20
--- NOTE | 2020-06-04 13:15 | DS.PCM_ITS ---
Discharge Date and Diagnosis - Problem List Patient Problems: Active and Suspected Problems (Last Reviewed 06/01/20 @ 21:[address] Yasmani Lowe DO) COVID-19 (Acute) Fever and chills (Acute) Ascending cholangitis (Suspected) Gallstone pancreatitis (Acute) Date of Admission: 06/01/20 Date of Discharge: 06/04/20 - Primary Discharge Diagnosis Acute Problems: Active Problems (Last Reviewed 06/01/20 @ 21:[address] Yasamni Lowe DO) COVID-19 (Acute) Suspected Problems: Suspected Problems (Last Reviewed 06/01/20 @ 21:[address] Yasmani Lowe DO) Ascending cholangitis (Suspected) - Secondary Discharge Diagnosis Chronic Problems: Chronic Problems (Last Reviewed 06/01/20 @ 21:[address] Yasmani Lowe DO) Asthma (Chronic) Arthritis (Chronic) Seasonal allergies (Chronic) Diabetes (Chronic) Hyperlipemia (Chronic) Osteopenia (Chronic) Hypothyroidism (Chronic) GERD (gastroesophageal reflux disease) (Chronic) Essential hypertension (Chronic) Type 2 diabetes mellitus (Chronic) Hypothyroidism (Chronic) Hypertension (Chronic) Asthma (Chronic) Hyperlipidemia (Chronic) GERD (gastroesophageal reflux disease) (Chronic) Hospital Course and Treatment Imaging Results: Diagnostic Data Chest X-Ray 06/01/20 20:04 IMPRESSION: Left basilar atelectasis. Electronically Signed: Gato Gómez MD at 20:16 EDT Tel , Service support , infectious disease Operations: None Procedures: None Summary of Care Provided: The patient is a 75 year old F with an extensive past medical history as outlined was admitted via the ED on 06/01/2020 with a complaint of shortness of breath for 1 week. 80s prior to admission, patient went out to a restaurant with her subsequently started having diarrhea. Subsequently she became more short of breath and started coughing. X-ray of the chest done on 29 May after saw her PCP showed increased markings of the left lung base with patient was otherwise doing well. However she subsequently deteriorated and started having fever and chills as well as abdominal pain so she decided to come into the ED. In the ED, she tested positive for COVID-19. She was admitted and managed for acute covert 19 infection. She was hydrated with IV fluids and started on IV dexamethasone. Factious disease was also consulted. She was also managed for acute hypoxic respiratory insufficiency due to COVID-19 infection. Patient gradually felt better and shortness of breath improved. Patient was treated by infectious diseases and was continued on Decadron. On day of discharge, patient's ambulatory pulse ox was 86% on room air but came up to 95% on 2 L of oxygen. Therefore she qualified for oxygen. Patient was therefore discharged home on 06/04/2020 with a prescription for p.o. dexamethasone 6 mg daily for 6 more days to make a total of 10 days. She qualified for 2 L of oxygen and was discharged home on 2 L of oxygen to use as needed for shortness of breath. She was also told to continue isolating at home till 06/09/2020 for total of 14 days of isolation since her symptoms started. She is to follow-up with her primary care doctor in 1 to 2 weeks. Patient seen and examined prior to discharge. She still felt a bit weak but had improved. Shortness of breath is also improved. Review of symptoms otherwise negative. Labs and vitals reviewed. Home medication reviewed and reconciled. O/E: Vital Signs Temp Pulse Resp BP Pulse Ox 98.1 F 84 18 159/82 H 94 06/04/20 12:04 06/04/20 12:04 06/04/20 12:04 06/04/20 12:04 06/04/20 12:04 ] General: Alert, Oriented x3, Cooperative HEENT: Atraumatic, PERRLA, EOMI, Normocephalic Oral: Moist Mucosa Neck: Supple, No JVD, Negative Carotid Bruits Lungs: - - Diminished breath sounds bibasally. No wheezes or crackles. On 2 L of oxygen. Cardiovascular: Regular rate, Regular Rhythm, Normal S1, Normal S2, No murmurs Abdomen: Bowel Sounds Present, Soft, Non Tender, Non-Distended, No Hepato- splenomegaly Extremities: No clubbing, No cyanosis, No edema, Capillary Refill Less than 3 Seconds Skin: No rashes, No breakdown Musculoskeletal: No Tenderness to Palpation of Joints or Extremities Lymphatic: No Cervical, Supraclavicular, or Inguinal Adenopathy Neurological: Cranial nerves II-XII grossly intact, Neuro grossly intact, Motor Exam 5/5 strength throughout Psych/Mental Status: Normal Affect, Appropriate, Alert and oriented to time, place, person, mood and affect Plan is for discharge home today. Patient Problems: Active and Suspected Problems (Last Reviewed 06/01/20 @ 21:[address] Yasmani Lowe, DO) COVID-19 (Acute) Fever and chills (Acute) Ascending cholangitis (Suspected) Gallstone pancreatitis (Acute) - Physical Exam Vitals/I&O's: Vital Signs Temp Pulse Resp BP Pulse Ox 98.1 F 84 18 159/82 H 94 06/04/20 12:04 06/04/20 12:04 06/04/20 12:04 06/04/20 12:04 06/04/20 12:04 Oxygen Flow Rate (L/min) [ 2 AMBULATION with Oxygen] Oxygen Flow Rate (L/min) [ 0 AMBULATING on Room Air] Oxygen Flow Rate (L/min) [At 0 REST on Room Air] Oxygen Flow Rate (L/min) 2 Oxygen Delivery Method Nasal Cannula Weight: 178 lb 2.136 oz Body Mass Index (BMI) 34.7 Finger Stick Blood Glucose 109 Intake and Output for Last 24 Hours 06/02/20 06/03/20 06/04/20 23:59 23:59 23:59 Intake Total 1150 / 1150 840 / 840 750 / 750 Output Total 1600 / 1600 1275 / 1275 500 / 500 Balance -450 / -450 -435 / -435 250 / 250 Laboratory Results 06/03/20 16:46: POC Glucose 224 H 06/03/20 21:21: POC Glucose 213 H 06/04/20 06:25: POC Glucose 147 H 06/04/20 11:48: POC Glucose 206 H Current Medications Acetaminophen (Acetaminophen 325 Mg Tablet) 650 mg PO Q6H PRN PRN PRN Reason: Pain Score 1-10/Temp > 100.7 F Last Admin: 06/04/20 08:48 Dose: 650 mg Documented by: Albuterol Sulfate (Albuterol Sulfate Hfa 6.7 Gm Inhaler (200 Puffs)) 2 puff IH Q6H PRN PRN PRN Reason: Asthma Last Admin: 06/04/20 03:46 Dose: 2 puff Documented by: Amlodipine Besylate (Amlodipine 10 Mg Tablet) 10 mg PO DAILY [facility] Last Admin: 06/04/20 08:53 Dose: 10 mg Documented by: Atorvastatin Calcium (Atorvastatin Calcium 10 Mg Tablet) 10 mg PO QHS [facility] Last Admin: 06/03/20 21:28 Dose: 10 mg Documented by: Dexamethasone Sodium Phosphate (Dexamethasone 10 Mg/Ml Vial) 6 mg IV DAILY [facility] Last Admin: 06/04/20 08:49 Dose: 6 mg Documented by: Dextrose (Dextrose 50%-Water 25 Gm/50 Ml Disp.Syrin) 0 gm IV X1 PRN; Protocol PRN Reason: Hypoglycemia Enoxaparin Sodium (Enoxaparin 30 Mg/0.3 Ml Syringe) 30 mg SC BID [facility] Last Admin: 06/04/20 08:48 Dose: 30 mg Documented by: Ergocalciferol (Ergocalciferol 50,000 Unit Capsule) 50,000 unit PO QWEEK [facility] Glucagon (Glucagon 1 Mg/Ml Syringe) 1 mg IM .X1 PRN PRN Reason: Hypoglycemia Guaifenesin (Guaifenesin 10 Ml Udc (200mg/10ml)) 20 ml PO Q4H PRN PRN PRN Reason: COUGH Last Admin: 06/04/20 08:49 Dose: 20 ml Documented by: Sodium Chloride () 250 mls @ 15 mls/hr IV .[id number] PRN PRN Reason: Saline Flush Sodium Chloride () 250 mls @ 15 mls/hr IV .[id number] PRN PRN Reason: Additional IVPB Infusion Insulin Human Lispro (Insulin Lispro 100 Unit/Ml Insuln.Pen) 0 unit SC TIDAC [facility]; Protocol Last Admin: 06/04/20 12:13 Dose: 1 unit Documented by: Levothyroxine Sodium (Levothyroxine 75 Mcg Tablet) 75 mcg PO DAILY [facility] Last Admin: 06/04/20 08:48 Dose: 75 mcg Documented by: Metformin HCl ([facility] Hcl 500 Mg Tablet) [facility] Last Admin: 06/04/20 08:47 Dose: 500 mg Documented by: Metoprolol Tartrate (Metoprolol Tartrate 25 Mg Tablet) 25 mg PO BID [facility] Last Admin: 06/04/20 08:47 Dose: 25 mg Documented by: Miscellaneous Information (Inhaler, Assist Devices 1 Each Spacer) 1 each INHALATION PRN PRN PRN Reason: WITH PROVENTIL MDI Last Admin: 06/04/20 03:46 Dose: 1 each Documented by: Nutritional Formula (Lactose Free) (Glucerna Shake 120 Ml Liquid) 120 ml PO 4X/DAYCM [facility] Last Admin: 06/04/20 11:46 Dose: 120 ml Documented by: Ondansetron HCl (Ondansetron 4 Mg/2 Ml Vial) 4 mg IV Q8H PRN PRN PRN Reason: NAUSEA/VOMITING Pantoprazole Sodium (Pantoprazole Sodium 40 Mg Tablet) 40 mg PO DAILY [facility] Last Admin: 06/04/20 08:47 Dose: 40 mg Documented by: Sodium Chloride (0.9% Saline Lock 10 Ml Syringe) 10 - 40 ml IV UD PRN PRN Reason: SALINE FLUSH Last Admin: 06/04/20 08:50 Dose: 10 ml Documented by: Discharge Diet: Low fat/ Low Cholesterol Discharge Activity: Return to Normal Activity Weight Bearing Status: Weight bearing as tolerated Call your doctor if you observe: Fever of 101 or Higher, Shortness of breath, Dizziness, Swelling in the ankles, Chest pain, Increased palpitations (irregular heartbeat), Uncontrolled pain Home Medications: Medications to take at Discharge Albuterol Sulfate [Albuterol Sulfate HFA] 2 puff INHALATION Q6H PRN PRN 03/19/20 Amlodipine [Norvasc] 10 mg PO DAILY 03/19/20 Atorvastatin Calcium 10 mg PO QHS 03/19/20 Ergocalciferol (Vitamin D2) [Vitamin D2] 50,000 unit PO QWEEK 03/19/20 Irbesartan/Hydrochlorothiazide [Irbesartan-Hctz 300-12.5 mg Tb] 1 ea PO DAILY 03/19/20 Levothyroxine [Synthroid] 75 mcg PO DAILY 03/19/20 Metformin HCl [Glucophage] 1 tab PO BID 03/19/20 Metoprolol Tartrate 25 mg PO BID 03/19/20 fluticasone propionate 110 mcg/actuation HFA aerosol inhaler 2 puff INHALATION BID 05/01/20 potassium chloride 8 mEq tablet,extended release 8 meq PO BID 05/01/20 pantoprazole 40 mg tablet,delayed release 40 mg PO DAILY #90 tab 05/29/20 Dexamethasone 6 mg PO DAILY 6 Days #6 tab 06/04/20 Following Prescriptions Were Given to Patient: Dexamethasone 6 mg PO DAILY 6 Days #6 tab Transmission Status: Received by [facility] Primary Care Physician: Shoshana Condon MD [Primary Care Provider] - Please follow up with your Primary Care Physician in: 1-2 weeks Patient Instructions: ED Dyspnea Disposition: Home Minutes spent on discharge:: 35 Patient Condition:: Stable Medical Necessity - Tobacco Use Smoking Status: Never smoker Meaningful Use Info Meaningful Use Diagnoses (Choose all that apply): None applicable Inpatient E&M: [id number] [facility]
--- NOTE | 2020-06-04 13:26 | CASEMGMT ---
Addendum entered by Manuel Kennedy 06/04/20 13:35: Pt states she does not have any other needs/concerns w/going home @ discharge. Original Note: NATALIA GONZALEZ NOTE: Ambulatory home oxygen testing has been completed and pt qualifies for Home O2 @ 2 l/m w/exertion. Call placed to pt and she states does not have a preference of DME company. Script obtained for O2 and faxed to [facility]. Call placed to [facility] and spoke w/Radha. She was made aware and will deliver O2 to hospital. Pt states would like to have her scripts sent to [facility] so they can be delivered to her prior to going home. She also inquired about the cough medicine she has been taking while @ [facility] and would like to get that as well. Pt has been taking PRN Guaifenesin. Call placed to [facility] pharmacy. They do have this OTC and car[place]quillo is $12.97. Per pharmacist, pt's insurance does not cover this and a script for this would not be cheaper. Pt made aware and states will get this OTC. Pt asks for her to be called for payment of oxygen and meds over the phone. Radha made aware of this also. Pt states her will be picking her up @ discharge but will not be here until around 4 PM. RNEvy, made aware. Reviewed with pt home isolation precautions and importance of self-quarantining for 14 days as well. Pt made aware they should not share the same bedroom and bathroom. Pt states they have 2 bathrooms but only have one bedroom, but she always sleeps on the recliner in the living room and sleeps in the bed, so this will not be an issue. They have masks and is picking up disinfectant today. Niece will get their groceries for them. Sharron VERMA RN, CM
[2020-06-04 16:21] VITALS: BP 160/90; RESP 18; TEMP 36.6
--- NOTE | 2020-06-04 17:10 | PN.ID_ITS ---
Patient Problems: Active and Suspected Problems (Last Reviewed 06/01/20 @ 21:[address] Yasmani Lowe, DO) COVID-19 (Acute) Fever and chills (Acute) Ascending cholangitis (Suspected) Gallstone pancreatitis (Acute) Subjective: Feeling better, no fever, some cough - Physical Exam Vitals/I&O's: Vital Signs Temp Pulse Resp BP Pulse Ox 97.9 F 84 18 160/90 H 94 06/04/20 16:21 06/04/20 12:04 06/04/20 16:21 06/04/20 16:21 06/04/20 12:04 Oxygen Flow Rate (L/min) [ 2 AMBULATION with Oxygen] Oxygen Flow Rate (L/min) [ 0 AMBULATING on Room Air] Oxygen Flow Rate (L/min) [At 0 REST on Room Air] Oxygen Flow Rate (L/min) 2 Oxygen Delivery Method Nasal Cannula Weight: 80.8 kg Body Mass Index (BMI) 34.7 Finger Stick Blood Glucose 109 Intake and Output for Last 24 Hours 06/02/20 06/03/20 06/04/20 23:59 23:59 23:59 Intake Total 1150 / 1150 840 / 840 750 / 750 Output Total 1600 / 1600 1275 / 1275 500 / 500 Balance -450 / -450 -435 / -435 250 / 250 General: Alert, Cooperative, No apparent distress Lungs: Clear to auscultation Cardiovascular: Regular rate, Regular Rhythm Abdomen: Soft, Non Tender, Non-Distended Skin: No rashes Laboratory Results 06/03/20 16:46: POC Glucose 224 H 06/03/20 21:21: POC Glucose 213 H 06/04/20 06:25: POC Glucose 147 H 06/04/20 11:48: POC Glucose 206 H Current Medications Acetaminophen (Acetaminophen 325 Mg Tablet) 650 mg PO Q6H PRN PRN PRN Reason: Pain Score 1-10/Temp > 100.7 F Last Admin: 06/04/20 08:48 Dose: 650 mg Documented by: Albuterol Sulfate (Albuterol Sulfate Hfa 6.7 Gm Inhaler (200 Puffs)) 2 puff IH Q6H PRN PRN PRN Reason: Asthma Last Admin: 06/04/20 03:46 Dose: 2 puff Documented by: Amlodipine Besylate (Amlodipine 10 Mg Tablet) 10 mg PO DAILY [facility] Last Admin: 06/04/20 08:53 Dose: 10 mg Documented by: Atorvastatin Calcium (Atorvastatin Calcium 10 Mg Tablet) 10 mg PO QHS [facility] Last Admin: 06/03/20 21:28 Dose: 10 mg Documented by: Dexamethasone Sodium Phosphate (Dexamethasone 10 Mg/Ml Vial) 6 mg IV DAILY [facility] Last Admin: 06/04/20 08:49 Dose: 6 mg Documented by: Dextrose (Dextrose 50%-Water 25 Gm/50 Ml Disp.Syrin) 0 gm IV X1 PRN; Protocol PRN Reason: Hypoglycemia Enoxaparin Sodium (Enoxaparin 30 Mg/0.3 Ml Syringe) 30 mg SC BID [facility] Last Admin: 06/04/20 08:48 Dose: 30 mg Documented by: Ergocalciferol (Ergocalciferol 50,000 Unit Capsule) 50,000 unit PO QWEEK [facility] Glucagon (Glucagon 1 Mg/Ml Syringe) 1 mg IM .X1 PRN PRN Reason: Hypoglycemia Guaifenesin (Guaifenesin 10 Ml Udc (200mg/10ml)) 20 ml PO Q4H PRN PRN PRN Reason: COUGH Last Admin: 06/04/20 08:49 Dose: 20 ml Documented by: Sodium Chloride () 250 mls @ 15 mls/hr IV .[id number] PRN PRN Reason: Saline Flush Sodium Chloride () 250 mls @ 15 mls/hr IV .[id number] PRN PRN Reason: Additional IVPB Infusion Insulin Human Lispro (Insulin Lispro 100 Unit/Ml Insuln.Pen) 0 unit SC TIDAC [facility]; Protocol Last Admin: 06/04/20 12:13 Dose: 1 unit Documented by: Levothyroxine Sodium (Levothyroxine 75 Mcg Tablet) 75 mcg PO DAILY [facility] Last Admin: 06/04/20 08:48 Dose: 75 mcg Documented by: Metformin HCl ([facility]cl 500 Mg Tablet) [facility] Last Admin: 06/04/20 08:47 Dose: 500 mg Documented by: Metoprolol Tartrate (Metoprolol Tartrate 25 Mg Tablet) 25 mg PO BID [facility] Last Admin: 06/04/20 08:47 Dose: 25 mg Documented by: Miscellaneous Information (Inhaler, Assist Devices 1 Each Spacer) 1 each INHALATION PRN PRN PRN Reason: WITH PROVENTIL MDI Last Admin: 06/04/20 03:46 Dose: 1 each Documented by: Nutritional Formula (Lactose Free) (Glucerna Shake 120 Ml Liquid) 120 ml PO 4X/DAYCM [facility] Last Admin: 06/04/20 11:46 Dose: 120 ml Documented by: Ondansetron HCl (Ondansetron 4 Mg/2 Ml Vial) 4 mg IV Q8H PRN PRN PRN Reason: NAUSEA/VOMITING Pantoprazole Sodium (Pantoprazole Sodium 40 Mg Tablet) 40 mg PO DAILY [facility] Last Admin: 06/04/20 08:47 Dose: 40 mg Documented by: Sodium Chloride (0.9% Saline Lock 10 Ml Syringe) 10 - 40 ml IV UD PRN PRN Reason: SALINE FLUSH Last Admin: 06/04/20 08:50 Dose: 10 ml Documented by: Medical Necessity - Tobacco Use Smoking Status: Never smoker Route of nutrition/ use of supplements: [] Nutritional Intake: [] IV Site: [] Pineda Catheter: [] - Assessment/Plan Antibiotics: [] Assessment/Plan: [] Active and Suspected Problems (Last Reviewed 06/01/20 @ 21:[address] Yasmani Lowe, DO) COVID-19 (Acute) Fever and chills (Acute) Ascending cholangitis (Suspected) Gallstone pancreatitis (Acute) covid with hypoxia - initially 89% on RA, feeling better, O2 better. Now on 2L. Ok for discharge home on O2 as needed. Complete 10 days total of dex. Recommend get tested and he should quarantine 14 days; he remains asymptomatic. She should quarantine for 5 more days. Will follow
--- NOTE | 2020-06-05 13:51 | CASEMGMT ---
NATALIA CM DC PHONE CALL DC DATE: 06/04/20 DC DISPOSITION: Home DC DIAGNOSIS: SARS COVID 2 Attempted call to home phone. No answer, and no voice messaging with name identifier. Kirstin VERMA RN ACM
== END 2020-06-04 16:45 | disposition home or self-care (01) | DRG 178 ==
LOC: ED 20:29 → MS2 22:58
PROVIDERS: Emergency Provider Emergency Medicine; PCP Internal Medicine; Visit Provider Student in an Organized Health Care Education/Training Program
DX: U07.1 COVID-19 (principal); E87.1 Hypo-osmolality and hyponatremia; J45.909 Unspecified asthma, uncomplicated; I10 Essential (primary) hypertension; E11.9 Type 2 diabetes mellitus without complications; M19.90 Unspecified osteoarthritis, unspecified site; E78.5 Hyperlipidemia, unspecified; E03.9 Hypothyroidism, unspecified; K21.9 Gastro-esophageal reflux disease without esophagitis; R09.02 Hypoxemia
CPT/HCPCS: 36415; 71046; 80048; 80053; 80076; 82962; 83605; 83615; 83690; 84145; 85025; 85379; 85610; 87635; 93005; 94640; 99285; C9803; J7030; A4216; U0003

== ENCOUNTER → 2020-06-24 12:25 | Outpatient (CLI) | payer MEDICARE, SELFPAY ==
[2020-05-01 15:34] VITALS: BMI 37.2
[2020-06-02 09:00] VITALS: BMI 34.7
--- NOTE | 2020-06-24 12:45 | BI_ITS ---
MAMMOGRAPHY - BILATERAL SCREENING REASON FOR EXAM: Female, 75 years old. Routine annual screening examination. PERTINENT HISTORY: Non-contributory. TECHNIQUE: Digital bilateral breast gonsalo (3D mammographic acquisition) in the CC and MLO projections. 2-D mediolateral oblique (MLO) and craniocaudad (CC) views of both breasts were obtained. CAD: Full Field Digital Mammography with Computer Added Detection was performed. COMPARISON: Comparison is made with prior examination dated 12/25/2018. FINDINGS: Breast Composition: There are scattered areas of fibroglandular density. There are no dominant masses or suspicious calcifications. Stable benign-appearing bilateral axillary lymph nodes. Artifact from the patient''s facial covering is seen along the deep medial portion of the left breast on the craniocaudad view. No other significant abnormalities are identified. There has been no significant change since the prior study. BI/SCREEN MAMM (CAD) W/GONSALO BILAT IMPRESSION: Stable bilateral screening mammogram. Yearly follow-up mammogram recommended. (A) ASSESSMENT CATEGORY: BIRADS Category 2: Benign. A letter regarding these results will be sent to the patient by the facility within 30 days. Approximately 10% of breast cancers are not detected by mammography. A normal mammogram should not delay biopsy of a clinically suspicious abnormality. [id number] Electronically Signed: Luis Lynne, at 13:28 EST , Service support ,
== END ==
PROVIDERS: PCP Internal Medicine; Referring Provider Internal Medicine; Visit Provider Internal Medicine
DX: Z12.31 Encounter for screening mammogram for malignant neoplasm of breast (principal)
CPT/HCPCS: 77063; 77067

== ENCOUNTER → 2021-03-16 10:46 | Outpatient (CLI) | payer MEDICARE, SELFPAY ==
[2021-03-16 09:58] VITALS: BMI 34.7
[2021-03-16 12:24] LABS: Absolute Lymphocyte Count 1.74 X10^3/uL (0.83-4.51); Absolute Neutrophil Count 5.6 X10^3/uL (2.0-7.7); Basophil# 0.06 X10^3/uL; Basophil% 0.7 % (0-1); Eosinophil# 0.32 X10^3/uL; Eosinophils% 3.8 % (0-5); Hematocrit 40.4 % (37-47); Hemoglobin 12.5 g/dL (12.0-15.0); Lymphocyte # 1.74 X10^3/ul (0.83-4.51); Lymphocyte % 20.8 % (19-41); Mean Corp Hgb Conc 30.9 g/dL (32-36); Mean Corpuscular Hgb 26.2 pg (27.0-32.0); Mean Corpuscular Volume 84.7 fL (81-99); Mean Platelet Vol. 10.4 fl (6.2-12.0); Monocyte# 0.65 X10^3/uL; Monocyte% 7.8 % (0-10); NRBC Flagged by Analyzer 0 % (0-5); Neutrophil # 5.58 X10^3/uL (2.7-7.7); Neutrophil % 66.7 % (47-70); Platelet Count 427 K/mm3 (150-450); RBC Distribution Width CV 14.2 % (11.6-14.6); Red Blood Count 4.77 M/mm3 (4.2-5.4); White Blood Count 8.4 K/mm3 (4.4-11.0)
[2021-03-16 12:38] LABS: Vitamin D,25 Hydroxy 72.1 ng/mL
[2021-03-16 12:46] LABS: Hemoglobin A1c 7.1 % (3.8-5.6)
[2021-03-16 12:47] LABS: AST(SGOT) 12 U/L (15-37); Alanine Aminotransfer ALT/SGPT 25 U/L (13-56); Alkaline Phosphatase 95 U/L (45-117); Anion Gap 6 (5-15); BUN 10 mg/dL (7-18); BUN/Creat Ratio 13.6 RATIO (10-20); Calcium,Total 9.4 mg/dL (8.5-10.1); Chloride 97 mmol/L (98-107); Cholesterol 147 mg/dL (200); Creatinine, Serum 0.74 mg/dL (0.55-1.02); EST Glomerular Filtration Rate 82 mL/min (>60); Est Glom Filt Rate - Afr Amer 99 mL/min (>60); Free T3 2.4 pg/mL (2.18-3.98); Globulin 4.1 g/dL (2.2-4.2); Glucose 129 mg/dL (74-106); High Density Lipoprotein 59 mg/dL; Magnesium 1.6 mg/dL (1.6-2.6); Potassium 3.7 mmol/L (3.5-5.1); Protein, Total 8.1 g/dL (6.4-8.2); Sodium Level 135 mmol/L (136-145); T4 Free Direct 1.55 ng/dL (0.76-1.46); Thyroid Stim Hormone (TSH) 2.44 uIU/mL (0.358-3.74); Triglycerides 112 mg/dL; Very Low Density Lipoprotein 22 mg/dL (5-40)
== END ==
PROVIDERS: PCP Internal Medicine; Visit Provider Internal Medicine
DX: K21.9 Gastro-esophageal reflux disease without esophagitis (principal); E11.9 Type 2 diabetes mellitus without complications; E78.5 Hyperlipidemia, unspecified; E03.9 Hypothyroidism, unspecified; I10 Essential (primary) hypertension; M85.80 Other specified disorders of bone density and structure, unspecified site
CPT/HCPCS: 36415; 80053; 80061; 82306; 83036; 83735; 84439; 84443; 84481; 85025

== ENCOUNTER → 2021-06-11 12:32 | Outpatient (CLI) | payer MEDICARE, SELFPAY ==
--- NOTE | 2021-06-11 12:33 | VDLE_ITS ---
Reason For Study: Pain RIGHT LEFT GSV is normal. GSV is normal. CFV is compressible, spontaneous, phasic, CFV is compressible, spontaneous, phasic, competent and demonstrates normal competent, and demonstrates normal augmentation. augmentation. FV is compressible, spontaneous, phasic, FV is compressible, spontaneous, phasic, competent and demonstrates normal competent and demonstrates normal augmentation. augmentation. POP V is compressible, spontaneous, phasic, POP V is compressible, spontaneous, phasic, competent and demonstrates normal competent and demonstrates normal augmentation. augmentation. T/P Trunk is compressible. T/P Trunk is compressible. PTV is compressible. PTV is compressible. RT PerV is compressible. LT PerV is compressible. Procedure This is a venous duplex using B-mode, color flow and spectral Doppler. Exam performed in department. A preliminary report was called and/or faxed to [facility]. VL/Venous Duplex US - Cuong Extrem Interpretation Summary No evidence for acute deep venous thrombosis bilateral lower extremities with p atent and compressible bilateral great saphenous veins. Ordering Physician: Shoshana Condon Referring Physician: Shoshana Condon Performed By: Pamela Paulino RVT
== END ==
PROVIDERS: PCP Internal Medicine; Referring Provider Internal Medicine; Visit Provider Internal Medicine
DX: R22.43 Localized swelling, mass and lump, lower limb, bilateral (principal)
CPT/HCPCS: 93970

== ENCOUNTER 2021-07-13 15:00 | Outpatient (RCR) | payer MEDICARE, SELFPAY ==
[2021-03-16 09:58] VITALS: BMI 34.7
--- NOTE | 2021-03-30 15:40 | HP.PTEVAL ---
Patient's Visit Information DL PALOMINO is a 75 year old F referred to Physical Therapy by Dr. Shoshana Condon MD with a diagnosis of generalized weakness, covid, mult comorbidities. Date of Evaluation: 03/30/21 Physical Therapist: JOSÉ MIGUEL Carlton - Visit Plan Frequency: 2x /Week Duration: 3 Months Plan: 2X/ week for 12 weeks for progressive endurance, gait training, stair negotation, LE strengthening, sit to stand transfers, balance with HEP - Subjective In March 2020 she was in hospital for 12 days due to pancreatitus etc. When she came home she felt great but her immune system was down. 5 weeks after (May 2020) she came down with COVID but thought she had the flu and by the end of the week she was having trouble breathing and her taste and smell was gone. She was tested and in the hospital. When she came home she was basically an invalid. It took her awhile to get her strength back. She has also put on 40 pounds. When she tries to do anything she is so SOB and her legs are swelled up. By evening her ankles are all swollen. She does not do well with the heat. Pt crying cause she has not been able to clean her house for a year now. She reports that she can not go outside. Pt is on oxygen on at night. Sometimes during the day if she feels super out of breath. She sleeps in a recliner now cause she can not breath if she sleeps on her back. Pt asthma is worse since COVID. did some blood tests and her A1C is up over 7... she is going to try and eat veggies and fruit and get some exercise through PT. She is not seeing anyone for her breathing. She is using her inhalers more since COVID and with the humidity. Stairs are difficult because of balance and endurance. Pt can not get up off the floor if she is down on the floor. She uses a rolling walker. She has lost her balance twice and fallen but was not injured. - Objective Gait: walks back with a rollator with good stride with kvng UE support on her walker. She has a flexed trunk as well with gait. Pt is very SOB walking back to the exam rooms and needs a few minutes to catch her breath. Sit to stand: needs UE to get out of a chair with a flexed trunk after multiple attempts to stand and her legs did give out once standing and needed UE to help her get her legs straight again. LE MMT: B hip flex 3+/5, B knee ext 3+/5, B knee flex 3+/5, seated hip abd 3-/5 ( in sitting as pt can not breath laying down). B UE MMT: shld flex, abd, ER and IR grossly 3+/5. 6 inch step up pt was able to get up X 1 6 inch step with each leg using max B UE to get foot onto the step. Tinetti 15 - Balance/Special Test Scores Tinetti Balance Score: 6 Tinetti Gait Score: 9 Tinetti Balance & Gait Score: 15 - Goals Goal 1:: I HEP Goal Time Frame: 8-12 Weeks Goal 2:: Be able to go up and down the stairs with 1 hand rail with recip gait pattern. Goal Time Frame: 8-12 Weeks Goal 3:: Be able to walk back to the exam room without major SOB that causes her to have to rest for minutes afterward Goal Time Frame: 8-12 Weeks Goal 4:: Be able to sit to stand 2 X 10 using UE on first attempt without legs giving out. Goal Time Frame: 8-12 Weeks Goal 5:: IncreLE MMT: (at time of eval: B hip flex 3+/5, B knee ext 3+/5, B knee flex 3+/5, seated hip abd 3-/5 ( in sitting as pt can not breath laying down)ase LE strength by 1/2 muscle grade) Goal Time Frame: 8-12 Weeks - Rehabilitation Potential Rehabilitation Potential: Good - Anticipated Interventions Patient/Client Instruction: Educate patient on: Condition, Plan of Care For the Purpose of:: To increase ROM, To improve nutrient delivery to tissue, To increase oxygenation perfusion, To improve muscle performance and motor function, To improve ability to perform ADL's, To increase tolerance to activity/condition/position, To improve performance and independence with ADL's, To improve ability of physical actions for home/community/work/leisure, To improve gait and locomotor functions, To improve health of tissue, To decrease soft tissue restriction, To increase flexibility/ROM, To improve endurance, To improve balance, To improve safety with gait, To foster healthy habits Therapeutic Exercise to Include: Strength training, Endurance training, Balance training, Postural training, Flexibilty training, Gait and locomotor training, Neuromotor development, Passive ROM, Active ROM, Dynamic Lumbar Stabilization For the Purpose of:: To improve nutrient delivery to tissue, To improve muscle performance and motor function, To improve ability to perform ADL's, To increase tolerance to activity/condition/position, To improve performance and independence with ADL's, To decrease level of supervision to perform tasks, To improve ability of physical actions for home/community/work/leisure, To improve gait and locomotor functions, To improve health of tissue, To decrease soft tissue restriction, To increase flexibility/ROM, To improve endurance, To improve balance, To improve safety with gait Functional Training to Include: Gait training For the Purpose of:: To improve gait and locomotor functions, To improve safety with gait Thank you for the opportunity to evaluate your patient. For Medicare and Medicare HMO plans, please review the plan of care and approve it. It will need to be FAXED BACK to us at [phone] for Medicare purposes. For Medicare only, by signing this I certify the plan of care. Please let me know if there are questions or concerns regarding this plan of care. Physician Signature: Date:
--- NOTE | 2021-06-02 14:06 | HP.PTREVAL ---
Dr. Shoshana Condon MD, It has been my pleasure to treat DL PALOMINO over the last 13 visits for generalized weakness, covid, mult co-morbidities. Please see the progress note below for an update on the physical therapy plan of care! Subjective: Pt reports that she fell off her rollator as it was not locked when her helped her to sit down on the rollator. She reports that she is sore on the L side of her back and hip and L shoulder. Pt reports that somedays she struggles with her breath. She still has weakness in her legs and in her back. Pt reports that she was able to get through the vegetable isle with the rollator and then started with breathing issues and then strength in her legs were quivering. Pt reports that she is retaining water and that her Dr know this but said to go to PT. [place] [employer] and getting farther and farther before she has to sit down. Objective/Function: B hip flex 3+/5, B knee ext 3+/5, B knee flex 4-/5, seated hip abd 3+/5 ( in sitting as pt can not breath laying down). Stairs: up and down recip with 2 hand rails and pulls self up with her arms.. Sit to stand X 10 using B arms to help until she gets her legs set and extended to stand Plan Plan: Continue but add additional Neutral spine core stability and additional leg strength (especially hip ext and sit to stands),endurance as able. 2x/ week for 12 weeks for progressive endurance, gait training, stair negotiation, LE strengthening, sit to stand transfers, balance with HEP Balance/Gait/Functional tests - Balance/Special Test Scores Tinetti Balance Score: 6 Tinetti Gait Score: 9 Tinetti Balance & Gait Score: 15 Lower Extremity Functional Score: 17 Goals Goal 1:: I HEP Goal Time Frame: 8-12 Weeks Goal Progress: Progressing Goal 2:: Be able to go up and down the stairs with 1 hand rail with recip gait pattern. Goal Time Frame: 8-12 Weeks Goal Progress: Progressing Goal 3:: Be able to walk back to the exam room without major SOB that causes her to have to rest for minutes afterward Goal Time Frame: 8-12 Weeks Goal Progress: Progressing Goal 4:: Be able to sit to stand 2 X 10 using UE on first attempt without legs giving out. Goal Time Frame: 8-12 Weeks Goal Progress: Progressing Goal 5:: IncreLE MMT: (at time of eval: B hip flex 3+/5, B knee ext 3+/5, B knee flex 3+/5, seated hip abd 3-/5 ( in sitting as pt can not breath laying down)ase LE strength by 1/2 muscle grade) Goal Time Frame: 8-12 Weeks Goal Progress: Progressing Anticipated Interventions Patient/Client Instruction: Educate patient on: Condition, Plan of Care For the Purpose of:: To increase ROM, To improve nutrient delivery to tissue, To increase oxygenation perfusion, To improve muscle performance and motor function, To improve ability to perform ADL's, To increase tolerance to activity/condition/position, To improve performance and independence with ADL's, To improve ability of physical actions for home/community/work/leisure, To improve gait and locomotor functions, To improve health of tissue, To decrease soft tissue restriction, To increase flexibility/ROM, To improve endurance, To improve balance, To improve safety with gait, To foster healthy habits Therapeutic Exercise to Include: Strength training, Endurance training, Balance training, Postural training, Flexibilty training, Gait and locomotor training, Neuromotor development, Passive ROM, Active ROM, Dynamic Lumbar Stabilization For the Purpose of:: To improve nutrient delivery to tissue, To improve muscle performance and motor function, To improve ability to perform ADL's, To increase tolerance to activity/condition/position, To improve performance and independence with ADL's, To decrease level of supervision to perform tasks, To improve ability of physical actions for home/community/work/leisure, To improve gait and locomotor functions, To improve health of tissue, To decrease soft tissue restriction, To increase flexibility/ROM, To improve endurance, To improve balance, To improve safety with gait Functional Training to Include: Gait training For the Purpose of:: To improve gait and locomotor functions, To improve safety with gait Please do not hesitate to contact me at [phone] by phone or if you have questions or concerns regarding this new plan of care! Sincerely, Izzy Alatorre, MPT
--- NOTE | 2021-07-08 16:01 | HP.PTREVAL_ITS ---
Dr. Shoshana Condon MD, It has been my pleasure to treat DL PALOMINO over the last 20 visits for generalized weakness, covid, mult co-morbidities. Please see the progress note below for an update on the physical therapy plan of care! Subjective: Pt reports that she missed some of her appts due to illness. Pt feels that she has improved. Her biggest issue right now is her L leg because it is painful and it gives out on her. Sometimes she walks fine and other times she will get a shooting pain and feels there is a piece of bone that moves diane und. Pt can not stand the whole time to do the dishes nor can she walk through the grocery store. Pt reports that her SOB is doing better some days than others. Today pt feels good. She had to use her inhaler last night but feels good today. Pt wants to be able to run the sweeper in her house and she wants to be able to do some yard work. Pt feels that her endurance is still weak. Pt's B LE swelling has gotten better but if she stands too much they will be much worse. Objective/Function: LE MMT: IncreLE MMT: R hip flex 4-/5 and L hip flex 4-/5, R knee ext 4/5 and L knee ext, R knee flex 4/5 and L knee flex 3+/5, seated hip abd 4-/5. Pt is able to sit to stand X 7 and then has to stop and rest less than 30 sec and can complete her 10 sit to stands. She became SOB with sit to stand. Steps: up and down recip with pulling self up with B arms and increase SOB and increase favoring of the L LE when ascending and descending the steps. Gait: Pt walked in the dept with a rollator for 3 min and 25 seconds and had to sit down as she felt SOB and her legs were going to give out on her. Plan Plan: Ask for additional visits to increase endurance to be able to carry out things inside her home (take laps with rollator to increase endurance), Increase LE strength Balance/Gait/Functional tests - Balance/Special Test Scores Tinetti Balance Score: 6 Tinetti Gait Score: 9 Tinetti Balance & Gait Score: 15 Lower Extremity Functional Score: 25 Goals Goal 1:: I HEP Goal Time Frame: 8-12 Weeks Goal Progress: Goal Met Goal 2:: Be able to go up and down the stairs with 1 hand rail with recip gait pattern. Goal Time Frame: 8-12 Weeks Goal Progress: Progressing Goal 3:: Be able to walk back to the exam room without major SOB that causes her to have to rest for minutes afterward Goal Time Frame: 8-12 Weeks Goal Progress: Progressing Goal 4:: Be able to sit to stand 2 X 10 using UE on first attempt without legs giving out. Goal Time Frame: 8-12 Weeks Goal Progress: Progressing Goal 5:: IncreLE MMT: (at time of eval: B hip flex 3+/5, B knee ext 3+/5, B knee flex 3+/5, seated hip abd 3-/5 ( in sitting as pt can not breath laying down)ase LE strength by 1/2 muscle grade) Goal Time Frame: 8-12 Weeks Goal Progress: Progressing Goal 6:: Be able to walk around the entire building X 2 laps with least restrictive device with no major SOB to increase endurance to be able to sweep and yard work. Goal Time Frame: 4-6 Weeks Anticipated Interventions Patient/Client Instruction: Educate patient on: Condition, Plan of Care For the Purpose of:: To increase ROM, To improve nutrient delivery to tissue, To increase oxygenation perfusion, To improve muscle performance and motor function, To improve ability to perform ADL's, To increase tolerance to activity/condition/position, To improve performance and independence with ADL's, To improve ability of physical actions for home/community/work/leisure, To improve gait and locomotor functions, To improve health of tissue, To decrease soft tissue restriction, To increase flexibility/ROM, To improve endurance, To improve balance, To improve safety with gait, To foster healthy habits Therapeutic Exercise to Include: Strength training, Endurance training, Balance training, Postural training, Flexibilty training, Gait and locomotor training, Neuromotor development, Passive ROM, Active ROM, Dynamic Lumbar Stabilization For the Purpose of:: To improve nutrient delivery to tissue, To improve muscle performance and motor function, To improve ability to perform ADL's, To increase tolerance to activity/condition/position, To improve performance and independence with ADL's, To decrease level of supervision to perform tasks, To improve ability of physical actions for home/community/work/leisure, To improve gait and locomotor functions, To improve health of tissue, To decrease soft tissue restriction, To increase flexibility/ROM, To improve endurance, To improve balance, To improve safety with gait Functional Training to Include: Gait training For the Purpose of:: To improve gait and locomotor functions, To improve safety with gait Please do not hesitate to contact me at [phone] by phone or if you have questions or concerns regarding this new plan of care! Sincerely, Izzy Alatorre, MPT
--- NOTE | 2021-08-19 11:53 | HP.PT.NRP ---
DL PALOMINO was seen in my office for initial evaluation on 03/30/21. The following Plan of Care was established for this patient: Initial Frequency: 2x /Week Initial Duration: 3 Months Patient/Client Instruction: Educate patient on: Condition, Plan of Care For the Purpose of:: To increase ROM, To improve nutrient delivery to tissue, To increase oxygenation perfusion, To improve muscle performance and motor function, To improve ability to perform ADL's, To increase tolerance to activity/condition/position, To improve performance and independence with ADL's, To improve ability of physical actions for home/community/work/leisure, To improve gait and locomotor functions, To improve health of tissue, To decrease soft tissue restriction, To increase flexibility/ROM, To improve endurance, To improve balance, To improve safety with gait, To foster healthy habits Therapeutic Exercise to Include: Strength training, Endurance training, Balance training, Postural training, Flexibilty training, Gait and locomotor training, Neuromotor development, Passive ROM, Active ROM, Dynamic Lumbar Stabilization For the Purpose of:: To improve nutrient delivery to tissue, To improve muscle performance and motor function, To improve ability to perform ADL's, To increase tolerance to activity/condition/position, To improve performance and independence with ADL's, To decrease level of supervision to perform tasks, To improve ability of physical actions for home/community/work/leisure, To improve gait and locomotor functions, To improve health of tissue, To decrease soft tissue restriction, To increase flexibility/ROM, To improve endurance, To improve balance, To improve safety with gait Functional Training to Include: Gait training For the Purpose of:: To improve gait and locomotor functions, To improve safety with gait This patient was last seen in our office . Pertinent comments regarding their Physical therapy will appear below: At this point I will be discontinuing this patient from physical therapy. I would be happy to see this patient again in the future if found appropriate by the physician. Thank you! Izzy Alatorre, JOSÉ MIGUEL Balance/Gait/Functional tests - Balance/Special Test Scores Tinetti Balance Score: 6 Tinetti Gait Score: 9 Tinetti Balance & Gait Score: 15 Lower Extremity Functional Score: 25
== END 2021-07-13 19:00 | disposition home or self-care (01) ==
LOC: PT 15:00
PROVIDERS: PCP Internal Medicine; Referring Provider Internal Medicine; Visit Provider Internal Medicine
DX: M62.81 Muscle weakness (generalized) (principal); E11.9 Type 2 diabetes mellitus without complications; J45.909 Unspecified asthma, uncomplicated; E78.5 Hyperlipidemia, unspecified; E03.9 Hypothyroidism, unspecified; I10 Essential (primary) hypertension; Z86.16 Personal history of COVID-19
CPT/HCPCS: 97110; 97162; 97164; 97530

== ENCOUNTER → 2021-12-07 | Outpatient (CLI) | payer MEDICARE, SELFPAY ==
[2021-12-07 11:30] LABS: Bacteria 0 SEEN /hpf (None Seen); Mucous, Urine 0 SEEN /hpf (<or=2+); Red Blood Cells-Urine 0 SEEN /hpf (0-5)
[2021-12-07 12:27] LABS: Absolute Lymphocyte Count 2.06 X10^3/uL (0.83-4.51); Basophil# 0.05 X10^3/uL; Basophil% 0.7 % (0-1); Eosinophil# 0.35 X10^3/uL; Hematocrit 38.8 % (37-47); Hemoglobin 12.2 g/dL (12.0-15.0); Lymphocyte # 2.06 X10^3/ul (0.83-4.51); Lymphocyte % 29.6 % (19-41); Mean Corp Hgb Conc 31.4 g/dL (32-36); Mean Corpuscular Hgb 26.6 pg (27.0-32.0); Mean Corpuscular Volume 84.7 fL (81-99); Mean Platelet Vol. 10.1 fl (6.2-12.0); Monocyte# 0.49 X10^3/uL; NRBC Flagged by Analyzer 0 % (0-5); Neutrophil # 4.01 X10^3/uL (2.7-7.7); Neutrophil % 57.6 % (47-70); Platelet Count 363 K/mm3 (150-450); RBC Distribution Width CV 15.3 % (11.6-14.6); RBC Distribution Width SD 47.4 fl (35.1-43.9); Red Blood Count 4.58 M/mm3 (4.2-5.4)
[2021-12-07 12:31] LABS: Color, Urine Yellow (Yellow); Glucose, Dipstick Normal (Normal); Ketone-Dipstick Negative (Negative); Leukocyte Esterase-Dipstick 500 /ul (Negative); Nitrite-Dipstick Negative (Negative); Occult Blood-Urine Negative /ul (Negative); Protein-Dipstick Negative (Negative); Urine Bilirubin Dipstick Negative (Negative); Urine Clarity Sl. Cloudy (Clear); Urine Urobilinogen Normal (Normal); Urine pH 6.5 (5.0 - 8.0)
[2021-12-07 12:39] LABS: Vitamin D,25 Hydroxy 78.9 ng/mL
[2021-12-07 12:51] LABS: Squamous Epithelial Cells - UA 0-5 SEEN /hpf (5-10); White Blood Cells 25-50 SEEN /hpf (0-5)
[2021-12-07 13:12] LABS: ALB/GLOB Ratio 0.9 RATIO (0.9-2.4); AST(SGOT) 18 U/L (15-37); Alanine Aminotransfer ALT/SGPT 29 U/L (13-56); Albumin, Serum 3.6 g/dL (3.2-5.0); Alkaline Phosphatase 88 U/L (45-117); Anion Gap 5 (5-15); BUN 7 mg/dL (7-18); BUN/Creat Ratio 9.8 RATIO (10-20); Calcium,Total 9.6 mg/dL (8.5-10.1); Chloride 99 mmol/L (98-107); Cholesterol 135 mg/dL (200); Creatinine, Serum 0.71 mg/dL (0.55-1.02); EST Glomerular Filtration Rate 85 mL/min (>60); Est Glom Filt Rate - Afr Amer 103 mL/min (>60); Free T3 2.2 pg/mL (2.18-3.98); Glucose 128 mg/dL (74-106); High Density Lipoprotein 49 mg/dL; Potassium 3.7 mmol/L (3.5-5.1); Protein, Total 7.6 g/dL (6.4-8.2); Sodium Level 135 mmol/L (136-145); T4 Free Direct 1.62 ng/dL (0.76-1.46); Thyroid Stim Hormone (TSH) 2.08 uIU/mL (0.358-3.74); Triglycerides 96 mg/dL; Very Low Density Lipoprotein 19 mg/dL (5-40)
[2021-12-07 13:17] LABS: Hemoglobin A1c 7.2 % (3.8-5.6)
== END | disposition home or self-care (01) ==
LOC: BIMLAB 09:17
PROVIDERS: PCP Internal Medicine; Referring Provider Internal Medicine; Visit Provider Internal Medicine
DX: K21.9 Gastro-esophageal reflux disease without esophagitis (principal); E11.9 Type 2 diabetes mellitus without complications; I10 Essential (primary) hypertension; E78.5 Hyperlipidemia, unspecified; E03.9 Hypothyroidism, unspecified; E66.9 Obesity, unspecified; E55.9 Vitamin D deficiency, unspecified; R30.0 Dysuria
CPT/HCPCS: 36415; 80053; 80061; 81001; 82306; 83036; 83735; 84439; 84443; 84481; 85025; 87086; 87088

== ENCOUNTER → 2021-12-30 | Outpatient (CLI) | payer MEDICARE, SELFPAY ==
--- NOTE | 2021-12-30 07:54 | EKG12_ITS ---
Test Reason : PRE OP Blood Pressure : / mmHG Vent. Rate : 074 BPM Atrial Rate : 074 BPM P-R Int : 180 ms QRS Dur : 088 ms QT Int : 402 ms P-R-T Axes : 039 -28 034 degrees QTc Int : 446 ms Normal sinus rhythm Left ventricular hypertrophy Poor R wave progression Abnormal ECG Confirmed by ANILA CARNES, THAD ([id number]), image editor PENG BA ([id number]) on 12/31/2021 12:50:12 PM Referred By: KUMAR Confirmed By:THAD HIGH MD
== END | disposition home or self-care (01) ==
LOC: PSN 07:52
PROVIDERS: PCP Internal Medicine; Visit Provider Internal Medicine
DX: I10 Essential (primary) hypertension (principal); E11.9 Type 2 diabetes mellitus without complications; E78.5 Hyperlipidemia, unspecified; R06.00 Dyspnea, unspecified; E03.9 Hypothyroidism, unspecified
CPT/HCPCS: 93005

== ENCOUNTER → 2022-01-05 | Outpatient (CLI) | payer MEDICARE, SELFPAY ==
--- NOTE | 2022-01-05 09:52 | STRESSREP ---
Stress Test Report Pharmacologic myocardial perfusion stress test. 76-year-old lady with a history of chest pain. Stress protocol: Resting KG demonstrates normal sinus rhythm with a rate of 79 bpm normal intervals are noted resting blood pressure is 138/70 mmHg. 0.4 mg of regadenoson was infused per usual protocol followed by Intravenous saline flush injection continuous EKG monitoring was performed. The maximum heart rate attained was noted to be 115 bpm which was 79% of max impact at heart rate the maximum workload was 1 metabolic equivalent. At rest there were no ST or T wave changes noted to suggest abnormal flow reserve and at peak infusion nonspecific ST changes were noted which did not meet the criteria for ischemia. No clinical angina was noted. Myocardial perfusion protocol. 14.7 mCi of technetium 99m sestamibi was injected at rest. 0.4 mg of regadenoson was infused per usual protocol. At peak infusion 44.1 mCi of technetium 99m sestamibi was injected stress images were obtained stress and rest images were reconstructed and compared in the short axis vertical long and horizontal long axis. Gated images were also obtained. Perfusion SPECT analysis: Review of the stress images demonstrate normal uptake of tracer noted in all areas of the myocardium. The resting images similarly demonstrate normal uptake of tracer noted in all areas of the myocardium. No areas of reversibility are noted to suggest ischemia and no previous infarct is noted. Gated SPECT analysis: The gated ejection fraction 79%. Conclusion: Normal pharmacologic myocardial perfusion stress test. Preserved ejection fraction.
[2022-01-05 15:46] LABS: Bedside Glucose 155 mg/dL (74-106)
== END | disposition home or self-care (01) ==
LOC: CVS 06:50
PROVIDERS: PCP Internal Medicine; Visit Provider Internal Medicine
DX: R06.09 Other forms of dyspnea (principal); E11.9 Type 2 diabetes mellitus without complications; I10 Essential (primary) hypertension
CPT/HCPCS: 78452; 82962; 93017; A9500; A4216; J2785

== ENCOUNTER 2022-02-02 06:47 | Day surgery (SDC) | payer MEDICARE, SELFPAY ==
[2022-02-02] VITALS (7 sets, daily range): BP systolic 116–162; BP diastolic 64–90; PULSE 64–75; RESP 14–104; TEMP 36.1–36.8; O2SAT 90–97; BMI 38.7
[2022-02-02] MEDS: Lactated Ringers 1,000 ML 15 ML IV (07:29)
--- NOTE | 2022-02-02 07:47 | PCM.HP.BLA ---
History and Physical Date of Admission: 02/02/22 Allergies Penicillins Allergy (Verified 12/11/21 13:43) RashSulfa (Sulfonamide Antibiotics) Allergy (Verified 12/11/21 13:43) Rashsertraline Adverse Reaction (Verified 12/11/21 13:43) OtherCALCIUM CITRATE Adverse Reaction (Uncoded 12/07/21 08:25) Other Medications lancets #100 ea 07/02/20 [History Confirmed 12/11/21] blood-glucose meter #1 ea 09/04/20 [Rx Confirmed 12/11/21] amlodipine 10 mg tablet 10 mg PO DAILY #90 tab 07/28/21 [Rx Confirmed 12/11/21] atorvastatin 10 mg tablet 10 mg PO QHS #90 tab 07/28/21 [Rx Confirmed 12/11/21] ergocalciferol (vitamin D2) 1,250 mcg (50,000 unit) capsule 1,250 mcg PO QWEEK #14 cap 07/28/21 [Rx Confirmed 12/11/21] irbesartan 300 mg-hydrochlorothiazide 12.5 mg tablet 1 tab PO DAILY #90 tab 07/28/21 [Rx Confirmed 12/11/21] levothyroxine 75 mcg tablet 75 mcg PO DAILY #90 tab 07/28/21 [Rx Confirmed 12/11/21] metformin 500 mg tablet 500 mg PO BID #180 tab 07/28/21 [Rx Confirmed 12/11/21] metoprolol tartrate 25 mg tablet 25 mg PO BID #180 tab 07/28/21 [Rx Confirmed 12/11/21] albuterol sulfate 90 mcg/actuation aerosol inhaler 2 inh INHALATION Q6H PRN #8.5 g 12/07/21 [Rx Confirmed 12/11/21] blood sugar diagnostic #100 ea 12/07/21 [Rx Confirmed 12/11/21] dextromethorphan-guaifenesin ER 60 mg-1,200 mg tab,extend release,12hr 1 tab PO Q12H 12/07/21 [History Confirmed 12/11/21] fluticasone propionate 110 mcg/actuation HFA aerosol inhaler 2 puff INHALATION BID #12 g 12/07/21 [Rx Confirmed 12/11/21] lancets #100 ea 12/07/21 [Rx Confirmed 12/11/21] lansoprazole 30 mg capsule,delayed release 30 mg PO DAILY PRN #30 cap 12/07/21 [Rx Confirmed 12/11/21] potassium chloride 8 mEq capsule,extended release 8 meq PO BID #180 cap 12/07/21 [Rx Confirmed 12/11/21] Is last menstrual period known: No Post menopausal: Yes Patient : No PFSH Medical History? Arthritis Ascending cholangitis Asthma COVID-19 Diarrhea Difficulty balancing when standing Essential hypertension Gallstone pancreatitis Hemorrhoids History of COVID-19 Incontinence Knee pain Obesity Osteopenia Pancreatitis Seasonal allergies Surgical History?(Updated 12/11/21 @ 13:41 by Michaela Hinds) Cataracts, bilateral Cholecystectomy planned H/O: hysterectomy History of colonoscopy Family History? Mother Diabetes Heart disease Arthritis Hypertension HyperlipemiaFather Colon cancer Heart disease Hypertension Hyperlipemia Cancer ?? ? prostate ?? ? Myocardial infarction Social History? Smoking Status:? Never smoker alcohol intake:? never substance use type:? does not use what type of physical activity do you participate in:? other details: yard work HPI HPI HPI: DL PALOMINO, is a 76 F who presents to the office today for bloody diarrhea.? The patient reports that she has been having diarrhea a lot lately and when she does she has a lot of blood.? She reports that she has alternating diarrhea and constipation.? She says her last colonoscopy may have been in 2017 ROS General General: No weight change or fatigue HEENT HEENT: No difficulty swallowing Endo Endocrine: No thyroid disease Musc Musculoskeletal: No back problems or arthritis Cardio Cardiovascular: No pacemaker, heart disease, atrial fibrillation, high blood pressure, heart attack, heart stent, palpitations or chest pain Psych Psychiatric: No depression or anxiety Resp Respiratory: No shortness of breath, No cough, No COPD, No asthma and No emphysema Gastro Gastrointestinal: Yes abdominal pain, No nausea or vomiting, Yes diarrhea, Yes constipation, Yes blood in stool, No acid reflux, No hemorrhoids, No ulcers, No gallbladder problem and No black,tarry stools Armani Hematologic: No blood thinners Exam Const General: cooperative Orientation: alert and oriented x3 HENMT Head: normal to inspection Neck Neck: normal visual inspection and full ROM Chest Chest palpation & inspection: normal inspection of the chest Resp Effort & Inspection: normal respiratory effort Auscultation: clear to auscultation bilaterally Cardio Rate: regular rate Rhythm: regular rhythm GI Inspection: non-distended Palpation: soft and nontender Skin General: no rashes or lesions noted Neuro General: patient alert and patient oriented x3 Extrem General: full ROM Psych Appearance: grossly normal Mental Status: mental status grossly normal Assessment and Plan Assessment and Plan (1) BRBPR (bright red blood per rectum): ?Status:?Acute ?Plan - Dr. Trevon Vee MD: The patient has been having diarrhea and this has been mixed with blood.? This is been going on for a long time at least 3 months.? Patient has alternating diarrhea and constipation.? She reports with constipation she has bleeding as well.? I would recommend colonoscopy to start with possible random biopsies to elucidate the cause of the diarrhea.? I will check the top of the hemorrhoids to see how they look and then I will see her back after colonoscopy to discuss hemorrhoidectomy. I explained endoscopy in detail to the patient.? I explained the risks including but not limited to stroke or heart attack with anesthesia, perforation of the GI tract, bleeding, infection.? I explained that any of these could necessitate further emergency surgery.? The patient understands and all questions were answered sufficiently.? The patient wishes to proceed with procedure. Trevon Vee MD Pager: [phone] Office: Assessment & Plan Assessment/Plan (1) BRBPR (bright red blood per rectum): PLAN: I explained endoscopy in detail to the patient. I explained the risks including but not limited to stroke or heart attack with anesthesia, perforation of the GI tract, bleeding, infection. I explained that any of these could necessitate further emergency surgery. The patient understands and all questions were answered sufficiently. The patient wishes to proceed with procedure. Trevon Vee MD Pager: [address], [place] [phone] Office:
--- NOTE | 2022-02-02 08:23 | OP.CCLET_ITS ---
02/02/2022 Shoshana Condon [facility] [address] [place] [address] Re : Colonoscopy procedure for Carmen Jaqueline Dear Dr. Condon This procedure was performed on Wednesday, February 02, 2022. My impressions and recommendations are as follows: Impressions : - Internal hemorrhoids. - Diverticulosis in the sigmoid colon. - The examination was otherwise normal on direct and retroflexion views. - No specimens collected. Recommendations : - Discharge patient to home. - Resume previous diet. - Continue present medications. - Repeat colonoscopy is not recommended due to current age (66 years or older) for screening purposes. My findings are described in the full procedure note, which is enclosed. If I can be of further assistance, please feel free to contact me at Doctor phone number(s): , Work: . Sincerely, Trevon Vee MD 02/02/2022 8:22:16 AM This report has been signed electronically.
--- NOTE | 2022-02-02 08:23 | OP.COLON_ITS ---
Patient Name: Carmen Parsons Procedure Date: 02/02/2022 7:53 AM Date of : 1945 Age: 76 Procedure: Colonoscopy Indications: Rectal bleeding Providers: Trevon Vee MD Referring MD: Shoshana Condon Medicines: Monitored Anesthesia Care Patient Profile: This is a 76 year old female. Refer to note in patient chart for documentation of history and physical. Last Colonoscopy: 5 years ago. Complications: No immediate complications. Procedure: Pre-Anesthesia Assessment: - Prior to the procedure, a History and Physical was performed, and patient medications and allergies were reviewed. The patient's tolerance of previous anesthesia was also reviewed. The risks and benefits of the procedure and the sedation options and risks were discussed with the patient. All questions were answered, and informed consent was obtained. Prior Anticoagulants: The patient has taken no previous anticoagulant or antiplatelet agents. After reviewing the risks and benefits, the patient was deemed in satisfactory condition to undergo the procedure. After I obtained informed consent, the scope was passed under direct vision. Throughout the procedure, the patient's blood pressure, pulse, and oxygen saturations were monitored continuously. The pediatric colonoscope was introduced through the anus and advanced to the cecum, identified by appendiceal orifice and ileocecal valve. The colonoscopy was performed without difficulty. The patient tolerated the procedure well. The quality of the bowel preparation was good. Scope In: 8:09:27 AM Scope Withdrawal Time 0 hours 4 minutes 31 seconds Scope Out: 8:18:20 AM Total Procedure Duration Time 0 hours 8 minutes 53 seconds Findings: Internal hemorrhoids were found during retroflexion. The hemorrhoids were moderate and Grade III (internal hemorrhoids that prolapse but require manual reduction). Multiple small-mouthed diverticula were found in the sigmoid colon. The exam was otherwise without abnormality on direct and retroflexion views. Impression: - Internal hemorrhoids. - Diverticulosis in the sigmoid colon. - The examination was otherwise normal on direct and retroflexion views. - No specimens collected. Recommendation: - Discharge patient to home. - Resume previous diet. - Continue present medications. - Repeat colonoscopy is not recommended due to current age (66 years or older) for screening purposes. Procedure Code(s): --- Professional --- 18685, Colonoscopy, flexible; diagnostic, including collection of specimen(s) by brushing or washing, when performed (separate procedure) Diagnosis Code(s): --- Professional --- K64.2, Third degree hemorrhoids K62.5, Hemorrhage of anus and rectum K57.30, Diverticulosis of large intestine without perforation or abscess without bleeding CPT copyright 2017 [employer]. All rights reserved. The codes documented in this report are preliminary and upon event specialist product demonstrator review may be revised to meet current compliance requirements. Trevon Vee MD 02/02/2022 8:22:16 AM This report has been signed electronically. Number of Addenda: 0 Note Initiated On: 02/02/2022 7:53 AM
[2022-02-02 09:06] LABS: Bedside Glucose 137 mg/dL (74-106)
== END 2022-02-02 09:21 | disposition home or self-care (01) ==
LOC: EN 06:48 → AC 06:49
PROVIDERS: PCP Internal Medicine; Referring Provider Internal Medicine; Visit Provider Surgery
PROC: 0DJD8ZZ Inspection of Lower Intestinal Tract, Via Natural or Artificial Opening Endoscopic (ICD-10-PCS; CPT 45378; principal; 2022-02-02 07:55)
DX: K57.30 Diverticulosis of large intestine without perforation or abscess without bleeding (principal); E11.9 Type 2 diabetes mellitus without complications; K64.2 Third degree hemorrhoids; K21.9 Gastro-esophageal reflux disease without esophagitis; I10 Essential (primary) hypertension; E07.9 Disorder of thyroid, unspecified; J45.909 Unspecified asthma, uncomplicated; Z79.899 Other long term (current) drug therapy; Z79.84 Long term (current) use of oral hypoglycemic drugs; Z86.16 Personal history of COVID-19; Z80.0 Family history of malignant neoplasm of digestive organs
CPT/HCPCS: 45378; 82962; J7120

== ENCOUNTER → 2022-06-09 | Outpatient (CLI) | payer MEDICARE, SELFPAY ==
[2022-06-09 11:30] LABS: Absolute Lymphocyte Count 2.51 X10^3/uL (0.83-4.51); Absolute Neutrophil Count 5.5 X10^3/uL (2.0-7.7); Basophil# 0.07 X10^3/uL; Basophil% 0.8 % (0-1); Eosinophil# 0.25 X10^3/uL; Eosinophils% 2.8 % (0-5); Hematocrit 41.6 % (37-47); Hemoglobin 13.4 g/dL (12.0-15.0); Lymphocyte # 2.51 X10^3/ul (0.83-4.51); Lymphocyte % 27.7 % (19-41); Mean Corp Hgb Conc 32.2 g/dL (32-36); Mean Corpuscular Hgb 27.3 pg (27.0-32.0); Mean Corpuscular Volume 84.9 fL (81-99); Mean Platelet Vol. 9.9 fl (6.2-12.0); Monocyte# 0.72 X10^3/uL; Monocyte% 7.9 % (0-10); NRBC Flagged by Analyzer 0 % (0-5); Neutrophil # 5.49 X10^3/uL (2.7-7.7); Neutrophil % 60.6 % (47-70); Platelet Count 384 K/mm3 (150-450); RBC Distribution Width CV 15.1 % (11.6-14.6); RBC Distribution Width SD 46.8 fl (35.1-43.9); White Blood Count 9.1 K/mm3 (4.4-11.0)
[2022-06-09 12:06] LABS: AST(SGOT) 13 U/L (15-37); Alanine Aminotransfer ALT/SGPT 29 U/L (13-56); Albumin, Serum 3.8 g/dL (3.2-5.0); Alkaline Phosphatase 87 U/L (45-117); Anion Gap 4 (5-15); BUN 8 mg/dL (7-18); Calcium,Total 9.4 mg/dL (8.5-10.1); Chloride 100 mmol/L (98-107); Cholesterol 141 mg/dL (200); EST Glomerular Filtration Rate 74 mL/min (>60); Est Glom Filt Rate - Afr Amer 89 mL/min (>60); Free T3 2.2 pg/mL (2.18-3.98); Globulin 3.9 g/dL (2.2-4.2); Glucose 130 mg/dL (74-106); High Density Lipoprotein 62 mg/dL; Potassium 3.9 mmol/L (3.5-5.1); Protein, Total 7.7 g/dL (6.4-8.2); Sodium Level 135 mmol/L (136-145); T4 Free Direct 1.47 ng/dL (0.76-1.46); Thyroid Stim Hormone (TSH) 1.76 uIU/mL (0.358-3.74); Triglycerides 92 mg/dL; Very Low Density Lipoprotein 18 mg/dL (5-40)
== END | disposition home or self-care (01) ==
LOC: LAB 10:54
PROVIDERS: PCP Internal Medicine; Referring Provider Internal Medicine; Visit Provider Internal Medicine
DX: K21.9 Gastro-esophageal reflux disease without esophagitis (principal); E11.9 Type 2 diabetes mellitus without complications; E03.9 Hypothyroidism, unspecified; E78.5 Hyperlipidemia, unspecified; E66.9 Obesity, unspecified; I10 Essential (primary) hypertension
CPT/HCPCS: 36415; 80053; 80061; 84439; 84443; 84481; 85025

== ENCOUNTER → 2022-06-24 | Outpatient (CLI) | payer MEDICARE, SELFPAY ==
--- NOTE | 2022-06-24 12:20 | BI_ITS ---
MAMMOGRAPHY - BILATERAL SCREENING REASON FOR EXAM: Female, 77 years old. Routine annual screening examination. PERTINENT HISTORY: Non-contributory. TECHNIQUE: Digital bilateral breast gonsalo (3D mammographic acquisition) in the CC and MLO projections. 2-D mediolateral oblique (MLO) and craniocaudad (CC) views of both breasts were obtained. CAD: Full Field Digital Mammography with Computer Added Detection was performed. COMPARISON: Comparison is made with prior study dated 06/24/2020. FINDINGS: Breast Composition: There are scattered areas of fibroglandular density. There is a 7.8 mm x 8 mm well-defined nodule in the slightly upper deep lateral portion of the left breast. Correlation with ultrasound is recommended. Stable benign-appearing bilateral axillary lymph nodes. No other significant abnormalities are identified. BI/SCRN MAMM (CAD)W/GONSALO BILAT IMPRESSION: 7.8 mm x 8 mm well-defined nodule in the slightly upper deep lateral portion of left breast. Correlation with ultrasound is recommended. ASSESSMENT CATEGORY: BIRADS Category 0: Incomplete. Need additional imaging evaluation. A letter regarding these results will be sent to the patient by the facility within 30 days. Approximately 10% of breast cancers are not detected by mammography. A normal mammogram should not delay biopsy of a clinically suspicious abnormality. [id number] Electronically Signed: Luis Lynne MD at 13:04 EST ,
== END | disposition home or self-care (01) ==
LOC: OPBI 12:19
PROVIDERS: PCP Internal Medicine; Referring Provider Internal Medicine; Visit Provider Internal Medicine
DX: Z12.31 Encounter for screening mammogram for malignant neoplasm of breast (principal)
CPT/HCPCS: 77063; 77067

== ENCOUNTER → 2022-06-28 | Outpatient (CLI) | payer MEDICARE, SELFPAY ==
--- NOTE | 2022-06-28 08:56 | US_ITS ---
STUDY: ULTRASOUND BREAST - LEFT REASON FOR EXAM: Female, 77 years old. Abnormal screening mammogram. TECHNIQUE: Axial and longitudinal images of the LEFT breast were performed with a high resolution ultrasound transducer. # OF IMAGES: 39 COMPARISON: Comparison is made with prior mammogram dated 06/24/2022. FINDINGS: LEFT Breast: The mammographic abnormality corresponds to an 8 mm x 8 mm x 4 mm well-defined hypoechoic nodule at the 3 o''clock position of the breast at 7 signs of nipple. This most likely represents a small lymph node. US/Breast Limited Unilateral IMPRESSION: The mammographic abnormality corresponds to a 8 mm x 8 mm x 4 mm hypoechoic nodule suggestive of a small lymph node. ASSESSMENT CATEGORY: BIRADS Category 2: Benign. A letter regarding these results will be sent to the patient by the facility within 30 days. Electronically Signed: Luis Lynne MD at 14:03 EST ,
== END | disposition home or self-care (01) ==
LOC: OPUS 08:50
PROVIDERS: PCP Internal Medicine; Visit Provider Internal Medicine
DX: R92.8 Other abnormal and inconclusive findings on diagnostic imaging of breast (principal)
CPT/HCPCS: 76642

== ENCOUNTER → 2022-12-30 | Outpatient (CLI) | payer MEDICARE, SELFPAY | END | disposition home or self-care (01) | LOC: LABSPEC 12:17 | PROVIDERS: PCP Internal Medicine; Referring Provider Internal Medicine; Visit Provider Internal Medicine | DX: R30.0 Dysuria (principal) | CPT/HCPCS: 87077; 87086; 87088; 87186 ==

== ENCOUNTER → 2022-12-31 | Outpatient (CLI) | payer MEDICARE, SELFPAY ==
[2022-12-31 10:35] LABS: Basophil# 0.06 X10^3/uL; Basophil% 0.7 % (0-1); Eosinophil# 0.29 X10^3/uL; Eosinophils% 3.5 % (0-5); Hematocrit 40.4 % (37-47); Hemoglobin 12.7 g/dL (12.0-15.0); Lymphocyte % 28.6 % (19-41); Mean Corp Hgb Conc 31.4 g/dL (32-36); Mean Corpuscular Hgb 26.8 pg (27.0-32.0); Mean Corpuscular Volume 85.4 fL (81-99); Mean Platelet Vol. 10.1 fl (6.2-12.0); Monocyte# 0.65 X10^3/uL; Monocyte% 7.7 % (0-10); NRBC Flagged by Analyzer 0 % (0-5); Neutrophil # 4.97 X10^3/uL (2.7-7.7); Neutrophil % 59.1 % (47-70); Platelet Count 427 K/mm3 (150-450); RBC Distribution Width CV 13.8 % (11.6-14.6); RBC Distribution Width SD 43.3 fl (35.1-43.9); Red Blood Count 4.73 M/mm3 (4.2-5.4); White Blood Count 8.4 K/mm3 (4.4-11.0)
[2022-12-31 11:05] LABS: Vitamin D,25 Hydroxy 62.1 ng/mL
[2022-12-31 11:10] LABS: ALB/GLOB Ratio 0.9 RATIO (0.9-2.4); AST(SGOT) 17 U/L (15-37); Alanine Aminotransfer ALT/SGPT 22 U/L (13-56); Albumin, Serum 3.5 g/dL (3.2-5.0); Alkaline Phosphatase 91 U/L (45-117); Anion Gap 7 (5-15); BUN 10 mg/dL (7-18); BUN/Creat Ratio 12.3 RATIO (10-20); Calcium,Total 9.4 mg/dL (8.5-10.1); Chloride 98 mmol/L (98-107); Cholesterol 129 mg/dL (200); Creatinine, Serum 0.81 mg/dL (0.55-1.02); EST Glomerular Filtration Rate 73 mL/min (>60); Est Glom Filt Rate - Afr Amer 88 mL/min (>60); Free T3 2.1 pg/mL (2.18-3.98); Globulin 4.1 g/dL (2.2-4.2); Glucose 141 mg/dL (74-106); High Density Lipoprotein 54 mg/dL; Potassium 3.7 mmol/L (3.5-5.1); Protein, Total 7.6 g/dL (6.4-8.2); Sodium Level 133 mmol/L (136-145); Thyroid Stim Hormone (TSH) 3.89 uIU/mL (0.358-3.74); Triglycerides 111 mg/dL; Very Low Density Lipoprotein 22 mg/dL (5-40)
[2022-12-31 11:22] LABS: Hemoglobin A1c 7.3 % (3.8-5.6)
== END | disposition home or self-care (01) ==
LOC: LAB 09:25
PROVIDERS: PCP Internal Medicine; Referring Provider Internal Medicine; Visit Provider Internal Medicine
DX: K21.9 Gastro-esophageal reflux disease without esophagitis (principal); E11.9 Type 2 diabetes mellitus without complications; E78.5 Hyperlipidemia, unspecified; E03.9 Hypothyroidism, unspecified; I10 Essential (primary) hypertension; E66.9 Obesity, unspecified; E55.9 Vitamin D deficiency, unspecified
CPT/HCPCS: 36415; 80053; 80061; 82306; 83036; 83735; 84439; 84443; 84481; 85025

== ENCOUNTER → 2023-02-22 | Outpatient (CLI) | payer MEDICARE, SELFPAY ==
[2023-02-22 10:35] LABS: T4 Free Direct 1.39 ng/dL (0.76-1.46); Thyroid Stim Hormone (TSH) 2.26 uIU/mL (0.358-3.74)
== END | disposition home or self-care (01) ==
LOC: LAB 08:56
PROVIDERS: PCP Internal Medicine; Referring Provider Internal Medicine; Visit Provider Internal Medicine
DX: E03.9 Hypothyroidism, unspecified (principal)
CPT/HCPCS: 36415; 84439; 84443; 84481

== ENCOUNTER → 2023-07-27 | Outpatient (CLI) | payer MEDICARE, SELFPAY ==
[2023-07-27 09:47] LABS: Absolute Lymphocyte Count 2.94 X10^3/uL (0.83-4.51); Absolute Neutrophil Count 4.6 X10^3/uL (2.0-7.7); Basophil# 0.06 X10^3/uL; Basophil% 0.7 % (0-1); Eosinophil# 0.35 X10^3/uL; Hematocrit 42.2 % (37-47); Hemoglobin 13.2 g/dL (12.0-15.0); Lymphocyte # 2.94 X10^3/ul (0.83-4.51); Lymphocyte % 33.9 % (19-41); Mean Corp Hgb Conc 31.3 g/dL (32-36); Mean Corpuscular Hgb 27.2 pg (27.0-32.0); Mean Platelet Vol. 10.1 fl (6.2-12.0); Monocyte# 0.64 X10^3/uL; Monocyte% 7.4 % (0-10); NRBC Flagged by Analyzer 0 % (0-5); Neutrophil # 4.64 X10^3/uL (2.7-7.7); Neutrophil % 53.7 % (47-70); Platelet Count 422 K/mm3 (150-450); RBC Distribution Width CV 14.4 % (11.6-14.6); RBC Distribution Width SD 46.3 fl (35.1-43.9); Red Blood Count 4.85 M/mm3 (4.2-5.4); White Blood Count 8.7 K/mm3 (4.4-11.0)
[2023-07-27 10:31] LABS: Hemoglobin A1c 7.2 % (3.8-5.6)
[2023-07-27 12:04] LABS: ALB/GLOB Ratio 0.9 RATIO (0.9-2.4); AST(SGOT) 16 U/L (15-37); Alanine Aminotransfer ALT/SGPT 23 U/L (13-56); Albumin, Serum 3.7 g/dL (3.2-5.0); Alkaline Phosphatase 89 U/L (45-117); Anion Gap 8 (5-15); BUN 9 mg/dL (7-18); BUN/Creat Ratio 11.6 RATIO (10-20); Calcium,Total 9.2 mg/dL (8.5-10.1); Chloride 101 mmol/L (98-107); Creatinine, Serum 0.78 mg/dL (0.55-1.02); EST Glomerular Filtration Rate 77 mL/min (>60); Est Glom Filt Rate - Afr Amer 93 mL/min (>60); Globulin 4.1 g/dL (2.2-4.2); Glucose 146 mg/dL (74-106); Protein, Total 7.8 g/dL (6.4-8.2); Sodium Level 137 mmol/L (136-145); T4 Free Direct 1.49 ng/dL (0.76-1.46); Thyroid Stim Hormone (TSH) 1.68 uIU/mL (0.358-3.74)
== END | disposition home or self-care (01) ==
PROVIDERS: PCP Internal Medicine; Referring Provider Internal Medicine; Visit Provider Internal Medicine
DX: E78.5 Hyperlipidemia, unspecified (principal); E11.9 Type 2 diabetes mellitus without complications; E03.9 Hypothyroidism, unspecified; I10 Essential (primary) hypertension; E66.9 Obesity, unspecified
CPT/HCPCS: 36415; 80053; 83036; 83735; 84439; 84443; 84481; 85025

== ENCOUNTER → 2024-01-30 | Outpatient (CLI) | payer MEDICARE, SELFPAY ==
--- NOTE | 2024-01-30 14:17 | US_ITS ---
STUDY: ULTRASOUND BREAST - LEFT REASON FOR EXAM: Female, 78 years old. Left breast lump. TECHNIQUE: Axial and longitudinal images of the LEFT breast were performed with a high resolution ultrasound transducer. # OF IMAGES: 23 COMPARISON: Comparison is made with prior mammogram dated January 30, 2024 and prior sonogram of the left breast dated June 28, 2022. FINDINGS: LEFT Breast: The lateral superior aspect of the left breast was examined with ultrasound. No sonographic abnormality is seen. US/Breast Limited Unilateral IMPRESSION: No sonographic abnormality is seen. ASSESSMENT CATEGORY: BIRADS Category 1: Negative. A letter regarding these results will be sent to the patient by the facility within 30 days. Electronically Signed: Luis Lynne MD at 9:26 EDT ,
--- NOTE | 2024-01-30 14:17 | BI_ITS ---
MAMMOGRAPHY - BILATERAL DIAGNOSTIC REASON FOR EXAM: Female, 78 years old. Left lateral breast lump. Against the chest wall. PERTINENT HISTORY: Aunt with breast cancer. TECHNIQUE: Digital bilateral breast carmela (3D mammographic acquisition) in the CC and MLO projections. 2-D mediolateral oblique (MLO) and craniocaudad (CC) views of both breasts were obtained. CAD: Full Field Digital Mammography with Computer Added Detection was performed. COMPARISON: Comparison is made with prior study dated June 24, 2022 and June 24, 2020. FINDINGS: Breast Composition: There are scattered areas of fibroglandular density. There are no dominant masses or suspicious calcifications. Stable fat-containing bilateral axillary lymph nodes. Stable scattered bilateral calcifications. No other significant abnormalities are identified. There has been no significant change since the prior study. BI/DIAG MAMM W/CAD, BILAT IMPRESSION: Stable bilateral diagnostic mammogram. With the patient''s history of a palpable lump in the deep upper outer aspect of the left breast, correlation with ultrasound is recommended. ASSESSMENT CATEGORY: BIRADS Category 0: Incomplete. Need additional imaging evaluation. A letter regarding these results will be sent to the patient by the facility within 30 days. Approximately 10% of breast cancers are not detected by mammography. A normal mammogram should not delay biopsy of a clinically suspicious abnormality. Electronically Signed: Luis Lynne MD at 15:45 EDT ,
== END | disposition home or self-care (01) ==
LOC: OPBI 14:17
PROVIDERS: PCP Internal Medicine; Referring Provider Internal Medicine; Visit Provider Internal Medicine
DX: N63.0 Unspecified lump in unspecified breast (principal); R92.8 Other abnormal and inconclusive findings on diagnostic imaging of breast
CPT/HCPCS: 76642; 77062; 77066; G0279

== ENCOUNTER → 2024-02-15 | Outpatient (CLI) | payer MEDICARE, SELFPAY ==
--- NOTE | 2024-02-15 | SOF_PTH ---
PATIENT: DL PALOMINO LOC: [facility] U#:[id number] AGE/SX: 78/F ROOM: RE02/15/[address]: Dr. Trevon Vee MD : 1945 BED: DIS: 02/15/2024 SPEC #: [id number] RECD: 02/15/24 11:04 STATUS: FREDA CHI #: [id number] KHANH: 02/15/24 00:[address]: Trevon Vee DEPT: SURGICAL PATHOLOGY RECD BY: Delfina Reyes ENTERED: 02/15/24 11:27 SP TYPE: SOFT TISS OTHR DR: Dr. Shoshana Condon MD Tissues: Soft tissues, NOS Procedures: Surgery Specimen Level III HEADER OPERATION: Excision of left chest wall mass PRE-OP DIAGNOSIS: Left chest mass TISSUE SUBMITTED: Left chest wall MICROSCOPIC DIAGNOSIS Left chest wall mass, excision: Fragments of mature adipose tissue, consistent with lipoma. SJ/mr 02/17/2024 MICROSCOPIC DESCRIPTION Slides are reviewed. GROSS DESCRIPTION Received in fixative is one container labeled with the patient's name and designated Left chest wall. The specimen consists of multiple pieces of yellow adipose tissue that in aggregate measure 3.5 x 3.0 x 0.4 cm. Sections do not reveal areas of hemorrhage, necrosis or cystic degeneration. The specimen is totally submitted in two cassettes. / 02/15/2024 TC:1 CPT:88106
== END | disposition home or self-care (01) ==
LOC: LABSPEC 11:16
PROVIDERS: PCP Internal Medicine; Referring Provider Surgery; Visit Provider Surgery
DX: R22.2 Localized swelling, mass and lump, trunk (principal)
CPT/HCPCS: 88304

== ENCOUNTER → 2024-06-15 | Outpatient (CLI) | payer MEDICARE, SELFPAY ==
[2024-06-15 07:09] LABS: Absolute Lymphocyte Count 2.79 X10^3/uL (0.83-4.51); Basophil# 0.07 X10^3/uL; Basophil% 0.8 % (0-1); Eosinophil# 0.34 X10^3/uL; Eosinophils% 3.8 % (0-5); Hematocrit 37.4 % (37-47); Hemoglobin 12.1 g/dL (12.0-15.0); Lymphocyte # 2.79 X10^3/ul (0.83-4.51); Lymphocyte % 31.5 % (19-41); Mean Corp Hgb Conc 32.4 g/dL (32-36); Mean Corpuscular Hgb 27.5 pg (27.0-32.0); Mean Platelet Vol. 9.1 fl (6.2-12.0); Monocyte# 0.69 X10^3/uL; Monocyte% 7.8 % (0-10); NRBC Flagged by Analyzer 0 % (0-5); Neutrophil # 4.96 X10^3/uL (2.7-7.7); Platelet Count 382 K/mm3 (150-450); RBC Distribution Width CV 14.5 % (11.6-14.6); RBC Distribution Width SD 44.7 fl (35.1-43.9); White Blood Count 8.9 K/mm3 (4.4-11.0)
[2024-06-15 07:47] LABS: AST(SGOT) 14 U/L (15-37); Alanine Aminotransfer ALT/SGPT 23 U/L (13-56); Albumin, Serum 3.6 g/dL (3.2-5.0); Alkaline Phosphatase 90 U/L (45-117); Anion Gap 7 (5-15); BUN 10 mg/dL (7-18); BUN/Creat Ratio 13.2 RATIO (10-20); Calcium,Total 9.2 mg/dL (8.5-10.1); Chloride 101 mmol/L (98-107); Cholesterol 122 mg/dL (200); Creatinine, Serum 0.76 mg/dL (0.55-1.02); EST Glomerular Filtration Rate 78 mL/min (>60); Est Glom Filt Rate - Afr Amer 95 mL/min (>60); Free T3 1.9 pg/mL (2.18-3.98); Globulin 3.7 g/dL (2.2-4.2); Glucose 146 mg/dL (74-106); High Density Lipoprotein 62 mg/dL; Protein, Total 7.3 g/dL (6.4-8.2); Sodium Level 136 mmol/L (136-145); T4 Free Direct 1.32 ng/dL (0.76-1.46); Triglycerides 78 mg/dL; Very Low Density Lipoprotein 16 mg/dL (5-40)
[2024-06-15 07:48] LABS: Hemoglobin A1c 7.2 % (3.8-5.6)
[2024-06-15 08:03] LABS: Vitamin D,25 Hydroxy 64.3 ng/mL
== END | disposition home or self-care (01) ==
LOC: LAB 06:55
PROVIDERS: PCP Internal Medicine; Referring Provider Internal Medicine; Visit Provider Internal Medicine
DX: E11.9 Type 2 diabetes mellitus without complications (principal); E03.9 Hypothyroidism, unspecified; E78.5 Hyperlipidemia, unspecified; I10 Essential (primary) hypertension; E66.9 Obesity, unspecified; N63.0 Unspecified lump in unspecified breast; Z13.220 Encounter for screening for lipoid disorders; E55.9 Vitamin D deficiency, unspecified
CPT/HCPCS: 36415; 80053; 80061; 82306; 83036; 84439; 84443; 84481; 85025

== ENCOUNTER 2024-07-03 05:54 | Emergency (ER) | payer MEDICARE, SELFPAY ==
[2024-07-03] VITALS (9 sets, daily range): BP systolic 122–151; BP diastolic 65–87; PULSE 75–83; RESP 16–20; TEMP 36.9–37.6; O2SAT 93–95; BMI 38.7
--- NOTE | 2024-07-03 05:58 | EDS_ITS ---
HPI <Dr. Pierre Haley, DO - Last Filed: 07/03/24 07:03> History of Present Illness Chief Complaint: Shortness of Breath PFSH <Dr. Pierre Haley, DO - Last Filed: 07/03/24 07:03> [facility] Medical History Need for influenza vaccination Syncope Wears glasses Post-menopausal Thyroid disease Diabetes Walker as ambulation aid Ambulates with cane Injury of head and neck Gastric reflux Non-smoker History of edema History of echocardiogram History of stress test Bronchitis Shortness of breath on exertion Obesity History of COVID-19 Incontinence Difficulty balancing when standing Knee pain Diarrhea Hemorrhoids COVID-19 Pancreatitis Asthma Arthritis Seasonal allergies Osteopenia Essential hypertension Ascending cholangitis Gallstone pancreatitis Home Medications ?Medication ?Instructions ?Recorded ?Last Taken ?Type lancets (Accu-Chek Multiclix #100 ea 07/02/20 Unknown History Lancet) fluticasone propionate 110 2 puff inhalation BID #12 grams 12/07/21 Unknown Rx mcg/actuation HFA aerosol inhaler (Flovent HFA) geriatric multivitamin-min 1 tab PO MOTH 01/28/22 Unknown History handicap placard #1 ea 07/06/23 Unknown Rx blood-glucose meter #1 ea 07/11/23 Unknown Rx lancets (Accu-Chek Softclix #100 ea 07/11/23 Unknown Rx Lancets) alcohol swabs 1 pad topical BID #100 ea 07/18/23 Unknown Rx accu-check avivia control solutions #1 BOTTLE 10/17/23 Unknown Rx blood sugar diagnostic (Accu-Chek #100 ea 10/31/23 Unknown Rx Guide test strips) amlodipine 10 mg tablet 10 mg PO DAILY BLOOD PRESSURE #90 02/23/24 Unknown Rx tabs atorvastatin 10 mg tablet 10 mg PO QHS CHOLESTEROL #90 tabs 02/23/24 Unknown Rx ergocalciferol (vitamin D2) 1,250 1,250 mcg PO QWEEK #14 caps 02/23/24 Unknown Rx mcg (50,000 unit) capsule irbesartan 300 1 tab PO DAILY BP #90 tabs 02/23/24 Unknown Rx mg-hydrochlorothiazide 12.5 mg tablet (Avalide) lansoprazole 30 mg capsule,delayed 30 mg PO DAILY #90 caps 02/23/24 Unknown Rx release levothyroxine 75 mcg tablet 75 mcg PO DAILY THYROID #90 tabs 02/23/24 Unknown Rx metformin 500 mg tablet 500 mg PO BID DIABETES #180 tabs 02/23/24 Unknown Rx metoprolol tartrate 25 mg tablet 25 mg PO BID BLOOD PRESSURE #180 02/23/24 Unknown Rx tabs potassium chloride 8 mEq 8 meq PO BID #180 caps 02/25/24 Unknown Rx capsule,extended release albuterol sulfate 90 mcg/actuation 2 inh inhalation Q6H PRN 05/30/24 Unknown Rx aerosol inhaler bronchospasm #8.5 grams Allergy/AdvReac Type Severity Reaction Status Date / Time Penicillins Allergy Rash Verified 07/03/24 05:54 Sulfa (Sulfonamide Allergy Rash Verified 07/03/24 05:54 Antibiotics) calcium AdvReac Constipatio Verified 07/03/24 05:54 n sertraline AdvReac Constipatio Verified 07/03/24 05:54 n Family History Mother Diabetes Heart disease Arthritis Hypertension Hyperlipemia Father Colon cancer Heart disease Hypertension Hyperlipemia Cancer prostate Myocardial infarction Surgical History Hx laparoscopic cholecystectomy History of ERCP History of colonoscopy Cataracts, bilateral H/O: hysterectomy Cholecystectomy planned Social History Smoking Status: Never smoker alcohol intake: never substance use type: does not use what type of physical activity do you participate in: other details: yard work additional social history: pt denies vaping, denies marijuana use, denies edib les, denies aspirin, denies ibuprofen use. EXAM <Dr. Pierre Haley, DO - Last Filed: 07/03/24 07:03> Physical Exam Const Vital Signs: 07/03/24 05:55 07/03/24 05:57 07/03/24 06:14 Temperature 99.6 F H 99.6 F H Temperature Source Oral Oral Pulse Rate 83 82 77 Respiratory Rate 20 H 20 H 18 Respiratory Effort Respiratory Depth Respiratory Pattern Blood Pressure 151/65 H 151/65 H Blood Pressure Mean 93 93 Pulse Ox 94 94 Oxygen Delivery Method Room Air Room Air 07/03/24 06:18 07/03/24 06:19 07/03/24 06:57 Temperature 99.3 F H Temperature Source Oral Pulse Rate 77 Respiratory Rate 18 Respiratory Effort Short of Breath Respiratory Depth Normal Respiratory Pattern Tachypnea Blood Pressure 144/69 H Blood Pressure Mean 94 Pulse Ox 93 Oxygen Delivery Method Room Air Room Air Room Air 07/03/24 07:00 07/03/24 08:00 07/03/24 08:00 Temperature 99.3 F H 98.7 F Temperature Source Oral Oral Pulse Rate 77 75 75 Respiratory Rate 18 17 16 Respiratory Effort Respiratory Depth Respiratory Pattern Blood Pressure 144/69 H 129/69 H 129/69 H Blood Pressure Mean 94 89 89 Pulse Ox 93 93 93 Oxygen Delivery Method Room Air Room Air <Dr. Jose Luis Ji MD - Last Filed: 07/03/24 09:05> Physical Exam Const Vital Signs: 07/03/24 05:55 07/03/24 05:57 07/03/24 06:14 Temperature 99.6 F H 99.6 F H Temperature Source Oral Oral Pulse Rate 83 82 77 Respiratory Rate 20 H 20 H 18 Respiratory Effort Respiratory Depth Respiratory Pattern Blood Pressure 151/65 H 151/65 H Blood Pressure Mean 93 93 Pulse Ox 94 94 Oxygen Delivery Method Room Air Room Air 07/03/24 06:18 07/03/24 06:19 07/03/24 06:57 Temperature 99.3 F H Temperature Source Oral Pulse Rate 77 Respiratory Rate 18 Respiratory Effort Short of Breath Respiratory Depth Normal Respiratory Pattern Tachypnea Blood Pressure 144/69 H Blood Pressure Mean 94 Pulse Ox 93 Oxygen Delivery Method Room Air Room Air Room Air 07/03/24 07:00 07/03/24 08:00 07/03/24 08:00 Temperature 99.3 F H 98.7 F Temperature Source Oral Oral Pulse Rate 77 75 75 Respiratory Rate 18 17 16 Respiratory Effort Respiratory Depth Respiratory Pattern Blood Pressure 144/69 H 129/69 H 129/69 H Blood Pressure Mean 94 89 89 Pulse Ox 93 93 93 Oxygen Delivery Method Room Air Room Air MDM <Dr. Pierre Haley DO - Last Filed: 07/03/24 07:03> MDM MDM Narrative Medical decision making narrative: HISTORY OF PRESENT ILLNESS: 79-year-old female presents with shortness of breath. Notes history of asthma. No recent sick contacts. Notes her had a recent viral URI. She notes for the last 2 days she has been experiencing a nonproductive cough that produces chest discomfort. Denies leg swelling. The patient denies recent surgery in the last 4 weeks or immobilization in the last 3 days, denies previous diagnosis of DVT or PE, hemoptysis, unilateral leg swelling or malignancy with treatment the last 6 months or palliative. No estrogen use noted. Patient denies bleeding diathesis such as melena hematochezia. No hematuria either. REVIEW OF SYSTEMS: Pertinent positives: Shortness of breath, cough Pertinent negatives: Leg swelling PHYSICAL EXAM: Nursing triage notes reviewed, Vital signs reviewed Constitutional: please see mdm HENT: MMM Eyes: Pupils equal round and reactive to light, Extraocular muscles intact Neck: No stridor, no JVD, full neck ROM Lungs: Clear to auscultation, coarse breath sounds with no obvious wheezing or rales. Patient speaking in full sentences. No increased work of breathing, no conversational dyspnea, no accessory muscle use, no nasal flaring. No respiratory distress noted Heart: Regular rate and rhythm, No murmurs, No rubs and No gallops, 2+ distal pulses (radial, femoral, posterior tibial) in all extremities Abdomen: Soft, there is no tenderness, rigidity, rebound or guarding, no obvious peritoneal signs, no palpable pulsatile abdominal masses, no auscultated abdominal bruit : No CVAT Extremities: No edema Neuro: No focal neurological deficits, cranial nerves II through XII intact, 5/5 strength in all extremities. Intact sensation to light touch in all extremities, 2+ reflexes bilateral patella tendons. Normal gait. No ataxia. Skin: No rash or lesions noted MEDICAL DECISION MAKING: Chief Complaint: Shortness of breath External records reviewed: Reviewed prior cardiovascular testing, allergies, problem list, vital signs, current medications Factors affecting care: Hypertension, hyperlipidemia, type 2 diabetes, hypothyroidism, asthma Social determinants of health: none History obtained from others: none Consults: none [facility] Narrative: The patient was initially hemodynamically stable, borderline febrile, saturating 94% room air. Exam without respiratory distress. No obvious wheezing or rales. No lower extremity edema or stigmata of VTE. I suspect patient suffering from a viral URI or other infectious etiology given borderline febrile state, recent sick contact and cough. I considered the following differential diagnosis: Viral URI, pneumonia, COVID, flu, RSV, pneumothorax, ACS, arrhythmia, anemia ALL IMAGES (IF OBTAINED) HAVE BEEN PERSONALLY REVIEWED AND INTERPRETED BY MYSELF. CBC with no leukocytosis, noted mild anemia similar to prior studies, no thrombocytopenia noted Patient was signed out to a.m. physician pending labs, x-ray, delta troponin, reassessment and final disposition Total critical care time today provided was at least 0 minutes. This excludes separately billable procedures. Critical care time (if documented) is secondary to the patient having high probability of clinically significant/life threatening deterioration in the patient's condition which required my urgent intervention. Impression: 1. Cough 2. History of asthma 3. Chest pain Dispo: Pending labs and disposition This note was generated with Soldsie dictation software. It may contain incorrect words, spelling, and punctuation that were not noted in review of the chart prior to signing. Lab Data Labs: Laboratory Results - last 24 hr 07/03/24 07/03/24 06:14 08:13 WBC 8.6 RBC 4.10 L Hgb 11.1 L Hct 33.8 L MCV 82.4 MCH 27.1 MCHC 32.8 RDW Std Deviation 42.5 RDW Coeff of Clarence 14.2 Plt Count 324 MPV 9.3 Immature Gran % (Auto) 0.300 Neut % (Auto) 64.9 Lymph % (Auto) 18.3 L [place] % (Auto) 15.6 H Eos % (Auto) 0.1 Baso % (Auto) 0.8 Absolute Neuts (auto) 5.6 Absolute Lymphs (auto) 1.57 Nucleated RBC % 0 Sodium 127 L Potassium 3.3 L Chloride 94 L Carbon Dioxide 25.0 Anion Gap 9 BUN 11 Creatinine 0.86 Estim Creat Clear Calc 52.85 Est GFR (MDRD) Af Amer 82 Est GFR (MDRD) Non-Af 68 BUN/Creatinine Ratio 12.8 Glucose 176 H Calcium 8.6 Troponin I High Sens 4 4 B-Natriuretic Peptide 42.0 Radiography Diagnostic Testing: Clinical Impression(s) from Imaging Studies Chest X-Ray 07/03/24 06:50 IMPRESSION: Low lung volumes limit the exam. No acute cardiopulmonary abnormality. No interval change. Electronically Signed: Bong Rao MD at 7:20 EST , <Dr. Jose Luis Ji MD - Last Filed: 07/03/24 09:05> [facility] Lab Data Attestation: I reviewed the patient's lab results. Lab results narrative: CBC reveals mild anemia with normal indices. Troponin and BNP were both normal. 2-hour troponin pending. Basic metabolic panel is remarked for glucose of 176 with normal CO2 anion gap. Rapid antigen for COVID is positive. In my opinion this is the cause of her pain. However since she is elderly and reported chest pain we will wait for 2-hour troponin to results. Labs: Laboratory Results - last 24 hr 07/03/24 07/03/24 06:14 08:13 WBC 8.6 RBC 4.10 L Hgb 11.1 L Hct 33.8 L MCV 82.4 MCH 27.1 MCHC 32.8 RDW Std Deviation 42.5 RDW Coeff of Clarence 14.2 Plt Count 324 MPV 9.3 Immature Gran % (Auto) 0.300 Neut % (Auto) 64.9 Lymph % (Auto) 18.3 L [place] % (Auto) 15.6 H Eos % (Auto) 0.1 Baso % (Auto) 0.8 Absolute Neuts (auto) 5.6 Absolute Lymphs (auto) 1.57 Nucleated RBC % 0 Sodium 127 L Potassium 3.3 L Chloride 94 L Carbon Dioxide 25.0 Anion Gap 9 BUN 11 Creatinine 0.86 Estim Creat Clear Calc 52.85 Est GFR (MDRD) Af Amer 82 Est GFR (MDRD) Non-Af 68 BUN/Creatinine Ratio 12.8 Glucose 176 H Calcium 8.6 Troponin I High Sens 4 4 B-Natriuretic Peptide 42.0 Radiography Chest X-Ray - ED: 1 View, Read by ED Physician (This was reviewed by ms. Patient's care was transferred to ms at 0700. Plan was to discharge to home if second troponin was normal.), Heart, Mediastinum, Bony Structures, No Acute Disease and Chronic Changes Diagnostic Testing: Clinical Impression(s) from Imaging Studies Chest X-Ray 07/03/24 06:50 IMPRESSION: Low lung volumes limit the exam. No acute cardiopulmonary abnormality. No interval change. Electronically Signed: Bong Rao MD at 7:20 EST , Treatment and Re-Evaluation :: First troponin was 4. Second troponin is 4 with a delta of 0. Since both levels are below 7 this has 100% negative predictive value for cardiac disease. In my opinion patient's chest pain is due to the fact that she has COVID. Patient be discharged home with appropriate home-going instructions. Comments:: Patient was informed of her results. She asked about any treatment. She was told the is potential treatment based on her meds there are contraindications. There is an expense. There is also possibility of recurrence. Also discussed possible use of Decadron. With her being diabetic she was informed this would cause her blood sugars to be elevated. After going over the risk benefits Paxlovid and Decadron patient declined both. Patient did request albuterol treatment prior to going home. Discharge Plan Triage Chief Complaint: Shortness of Breath ED Provider: Pierre Haley Dx/Rx/DC Orders Clinical Impression: COVID-19 virus infection, Essential hypertension, Hyperlipidemia, Chest pain, Type 2 diabetes mellitus with hyperglycemia, Acute dyspnea, Acute bronchospasm Instructions: Coronavirus Disease 2019 (COVID-19): Overview, Coronavirus Disease 2019 (COVID-19): Caring for Yourself or Others Prescriptions: No Action (DME) lancets [Accu-Chek Multiclix Lancet] Misc See Rx Instructions .ROUTE .MEDSUPPLY Qty: 100 Rx Instructions: As directed Flovent HFA 110 mcg/actuation HFA aerosol inhaler 2 puff inhalation BID Qty: 12 5RF (DME) handicap placard See Rx Instructions .Route .MEDSUPPLY Qty: 1 0RF Rx Instructions: As directed Multivitamin, Mineral Formula Tablet 1 tab PO MOTH (DME) blood-glucose meter Misc See Rx Instructions .ROUTE .MEDSUPPLY Qty: 1 0RF Rx Instructions: As directed (DME) lancets [Accu-Chek Softclix Lancets] Misc See Rx Instructions .ROUTE .MEDSUPPLY Qty: 100 3RF Rx Instructions: As directed use to test blood sugar twice daily and PRN alcohol swabs Pads, Medicated 1 pad topical BID Qty: 100 1RF Rx Instructions: BID AND PRN (DME) accu-check avivia control solutions See Rx Instructions .Route .MEDSUPPLY Qty: 1 2RF Rx Instructions: as directed (DME) Accu-Chek Guide test strips Strip See Rx Instructions .Route Qty: 100 6RF Rx Instructions: As directed amlodipine 10 mg tablet 10 mg PO DAILY Qty: 90 3RF atorvastatin 10 mg tablet 10 mg PO QHS Qty: 90 3RF irbesartan-hydrochlorothiazide [Avalide] 300-12.5 mg tablet 1 tab PO DAILY Qty: 90 3RF lansoprazole 30 mg capsule,delayed release(DR/EC) 30 mg PO DAILY Qty: 90 3RF levothyroxine 75 mcg tablet 75 mcg PO DAILY Qty: 90 3RF metformin 500 mg tablet 500 mg PO BID Qty: 180 3RF metoprolol tartrate 25 mg tablet 25 mg PO BID Qty: 180 3RF ergocalciferol (vitamin D2) 1,250 mcg (50,000 unit) capsule 1,250 mcg PO QWEEK Qty: 14 3RF potassium chloride 8 mEq capsule, extended release 8 meq PO BID Qty: 180 3RF albuterol sulfate 90 mcg/actuation HFA aerosol inhaler 2 inh inhalation Q6H PRN (Reason: bronchospasm) Qty: 8.5 5RF Primary Care Provider: Shoshana Condon Referrals: Shoshana Condon MD [Primary Care Provider] - 10-14 Days if not better Print Language: Upper Sorbian Disposition Disposition: Home, Self Care
--- NOTE | 2024-07-03 06:13 | EKG12_ITS ---
Test Reason : SOB Blood Pressure : */* mmHG Vent. Rate : 80 BPM Atrial Rate : 80 BPM P-R Int : 186 ms QRS Dur : 90 ms QT Int : 392 ms P-R-T Axes : 23 -25 19 degrees QTcB Int : 452 ms Normal sinus rhythm Minimal voltage criteria for LVH, may be normal variant ( R in aVL ) Borderline ECG Confirmed by NOAH CARNES, VALERIA ([id number]), purchasing expeditor PENG BA ([id number]) on 07/03/2024 1:54:08 PM Referred By: Confirmed By: VALERIA ZAMORA MD
[2024-07-03] MEDS: Ipratropium/Albuterol Sulfate 3 ML AMPUL.NEB INHALATION (06:20)
[2024-07-03 06:26] LABS: Absolute Lymphocyte Count 1.57 X10^3/uL (0.83-4.51); Absolute Neutrophil Count 5.6 X10^3/uL (2.0-7.7); Basophil# 0.07 X10^3/uL; Basophil% 0.8 % (0-1); Eosinophil# 0.01 X10^3/uL; Eosinophils% 0.1 % (0-5); Hematocrit 33.8 % (37-47); Hemoglobin 11.1 g/dL (12.0-15.0); Lymphocyte # 1.57 X10^3/ul (0.83-4.51); Lymphocyte % 18.3 % (19-41); Mean Corp Hgb Conc 32.8 g/dL (32-36); Mean Corpuscular Hgb 27.1 pg (27.0-32.0); Mean Corpuscular Volume 82.4 fL (81-99); Mean Platelet Vol. 9.3 fl (6.2-12.0); Monocyte# 1.34 X10^3/uL; Monocyte% 15.6 % (0-10); NRBC Flagged by Analyzer 0 % (0-5); Neutrophil # 5.58 X10^3/uL (2.7-7.7); Neutrophil % 64.9 % (47-70); Platelet Count 324 K/mm3 (150-450); RBC Distribution Width CV 14.2 % (11.6-14.6); RBC Distribution Width SD 42.5 fl (35.1-43.9); White Blood Count 8.6 K/mm3 (4.4-11.0)
[2024-07-03] MEDS: Acetaminophen/Codeine #3 Tablet 1 TABLET PO (06:26)
[2024-07-03 06:46] LABS: Anion Gap 9 (5-15); BUN 11 mg/dL (7-18); BUN/Creat Ratio 12.8 RATIO (10-20); Calcium,Total 8.6 mg/dL (8.5-10.1); Chloride 94 mmol/L (98-107); Creatinine, Serum 0.86 mg/dL (0.55-1.02); EST Glomerular Filtration Rate 68 mL/min (>60); Est Glom Filt Rate - Afr Amer 82 mL/min (>60); Estimated Creatinine Clearance 52.85 ml/min; Glucose 176 mg/dL (74-106); Potassium 3.3 mmol/L (3.5-5.1); Sodium Level 127 mmol/L (136-145); Troponin-I HS (w/2H Reflex) 4 pg/mL (3.0-54.0)
--- NOTE | 2024-07-03 06:50 | RAD_ITS ---
EXAM: XR CHEST, 1 VIEW CLINICAL INDICATION: cough TECHNIQUE: Frontal view of the chest. COMPARISON: 06/01/2020. FINDINGS: LUNGS AND PLEURAL SPACES: Low lung volumes limit the exam. No consolidations. No pneumothorax. No effusion. HEART: Unremarkable. Cardiac silhouette not enlarged. MEDIASTINUM: Central airways and mediastinal contour are unremarkable. BONES/JOINTS: Moderate dextroscoliosis. No acute fracture. SOFT TISSUES: Unremarkable. RAD/Chest 1 View (Portable) IMPRESSION: Low lung volumes limit the exam. No acute cardiopulmonary abnormality. No interval change. Electronically Signed: Bong Rao MD at 7:20 EST ,
[2024-07-03 08:22] LABS: Reflex Troponin-HS? (from REC) Y
[2024-07-03 08:47] LABS: Troponin-I HS 4 pg/mL (3.0-54.0)
[2024-07-03] MEDS: Albuterol 2.5 MG/3 ML VIAL.NEB. INHALATION (09:13)
== END 2024-07-03 09:38 | disposition home or self-care (01) ==
PROVIDERS: Emergency Provider Emergency Medicine; PCP Internal Medicine; Visit Provider Emergency Medicine
DX: U07.1 COVID-19 (principal); E11.65 Type 2 diabetes mellitus with hyperglycemia; I10 Essential (primary) hypertension; E03.9 Hypothyroidism, unspecified; E78.5 Hyperlipidemia, unspecified; D64.9 Anemia, unspecified; K21.9 Gastro-esophageal reflux disease without esophagitis; E66.9 Obesity, unspecified; M85.80 Other specified disorders of bone density and structure, unspecified site; J45.909 Unspecified asthma, uncomplicated; Z88.2 Allergy status to sulfonamides; Z88.0 Allergy status to penicillin; Z79.84 Long term (current) use of oral hypoglycemic drugs; Z90.49 Acquired absence of other specified parts of digestive tract; Z87.19 Personal history of other diseases of the digestive system; Z79.899 Other long term (current) drug therapy; Z79.890 Hormone replacement therapy; Z90.710 Acquired absence of both cervix and uterus
CPT/HCPCS: 71045; 80048; 83880; 84484; 85025; 87631; 93005; 94640; 99284; A4216

== ENCOUNTER → 2024-08-22 | Outpatient (CLI) | payer MEDICARE, SELFPAY | END | disposition home or self-care (01) | LOC: LABSPEC 10:56 | PROVIDERS: PCP Internal Medicine; Referring Provider Internal Medicine; Visit Provider Internal Medicine | DX: N39.0 Urinary tract infection, site not specified (principal) | CPT/HCPCS: 87077; 87086; 87088; 87186 ==

== ENCOUNTER → 2024-08-28 | Outpatient (CLI) | payer MEDICARE, SELFPAY ==
--- NOTE | 2024-08-28 12:04 | US_ITS ---
EXAM: US RETROPERITONEAL LIMITED, RENAL CLINICAL INDICATION: Back pain, uti TECHNIQUE: Limited grayscale and color Doppler sonographic evaluation of the retroperitoneum was performed. COMPARISON: No relevant prior studies available. FINDINGS: RIGHT KIDNEY: Unremarkable. No hydronephrosis. No shadowing calculus. No focal lesion. No perinephric collection is demonstrated. LEFT KIDNEY: Unremarkable. No hydronephrosis. No shadowing calculus. No focal lesion. No perinephric collection is demonstrated. US/Kidney and Bladder IMPRESSION: Unremarkable limited retroperitoneal ultrasound. Electronically Signed: Luis Yoon MD at 13:24 EST ,
== END | disposition home or self-care (01) ==
LOC: OPUS 12:03
PROVIDERS: PCP Internal Medicine; Referring Provider Internal Medicine; Visit Provider Internal Medicine
DX: N39.0 Urinary tract infection, site not specified (principal); M54.9 Dorsalgia, unspecified

== ENCOUNTER → 2024-08-30 | Outpatient (CLI) | payer MEDICARE, SELFPAY | END | disposition home or self-care (01) | LOC: LABSPEC 11:01 | PROVIDERS: PCP Internal Medicine; Referring Provider Internal Medicine; Visit Provider Internal Medicine | DX: K92.1 Melena (principal) | CPT/HCPCS: 82274 ==

== ENCOUNTER 2024-10-09 06:20 | Day surgery (SDC) | payer MEDICARE, SELFPAY ==
--- NOTE | 2024-10-04 14:22 | PAT.ANE_ITS ---
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 When Was Last Pacemaker Check QUESTION #4 FULL TEXT: You/Your Family Experience fever (hyperthermia) with Anesthesia Last Oral Intake Last Oral intake: Last Oral Intake NPO since Meds taken in AM with sips of water? Meds patient instructed to take am of surgery PONV PONV - construction estimator: PONV - construction estimator Female Yes 10/04/24 13:54 HX of Motion Sickness No 10/04/24 13:54 HX of N/V After Surgery No 10/04/24 13:54 Non-Smoker Yes 10/04/24 13:54 Duration of Surgery greater No 10/04/24 13:54 than 60 minutes Number of Risk Factors 2 10/04/24 13:54 PONV Score Moderate Risk 10/04/24 13:54 Height & Weight Height & Weight: Anesthesia: Height & Weight Height 5 ft 09/05/24 13:47 Respiratory Assessment Respiratory Assessment - construction estimator: Respiratory Tract Infection Hx - construction estimator Hx Respiratory Tract Infection No 10/04/24 13:54 STOP Sleep Apnea STOP Sleep Apnea - construction estimator: STOP Sleep Apnea - construction estimator Hx Hypertension Yes: CONTROLLED ON MED 10/04/24 13:54 Hx Sleep Apnea No 10/04/24 13:54 CPAP No 10/04/24 13:54 BIPAP No 10/04/24 13:54 Do you snore loudly (louder No 10/04/24 13:54 than talking or can be heard Do you often feel tired/ No 10/04/24 13:54 fatigued/ sleepy during daytime? Has anyone observed you stop No 10/04/24 13:54 breathing during sleep? STOP Results Negative 10/04/24 13:54 QUESTION #5 FULL TEXT : Do you snore loudly (louder than talking or can be heard through closed doors)? 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 Specify any problems Hx of Preganancy in last 3 No 10/04/24 13:54 Months Nurse Filling Out Transfusion VCHRISTIN 10/04/24 13:54 & Questions: Date: 10/04/24 10/04/24 13:54 Time: 13:55 10/04/24 13:54 Patient unable to answer at this time (ie. confused, unrespo /Reproduction History /Reproductive History - construction estimator: /Reproductive Hx- construction estimator Hx Now Gestational Age (in weeks): EDC: Hx Hx Para Hx Section SAB PFSH Medical History (Updated 10/04/24 @ 13:54 by Kourtney Hernandez) Cancer On home oxygen therapy Hypertension Abdominal discomfort Occult blood positive stool Back pain Black stool Acute URI Urinary tract infection Need for influenza vaccination Syncope Wears glasses Post-menopausal Thyroid disease Diabetes Walker as ambulation aid Ambulates with cane Injury of head and neck Gastric reflux Non-smoker History of edema History of echocardiogram History of stress test Bronchitis Shortness of breath on exertion Obesity History of COVID-19 Incontinence Difficulty balancing when standing Knee pain Diarrhea Hemorrhoids COVID-19 Pancreatitis Asthma Arthritis Seasonal allergies Osteopenia Essential hypertension Ascending cholangitis Gallstone pancreatitis Home Medications ?Medication ?Instructions ?Recorded ?Last Taken ?Type lancets (Accu-Chek Multiclix #100 ea 07/02/20 Unknown History Lancet) fluticasone propionate 110 2 puff inhalation BID #12 g nico 12/07/21 Unknown Rx mcg/actuation HFA aerosol inhaler (Flovent HFA) geriatric multivitamin-min 1 tab PO .QOD 01/28/22 Unkn own History handicap placard #1 ea 07/06/23 Unknown Rx blood-glucose meter #1 ea 07/11/23 Unknown Rx lancets (Accu-Chek Softclix #100 ea 07/11/23 Unknown R x Lancets) alcohol swabs 1 pad topical BID #100 ea Unknown Rx blood sugar diagnostic (Accu-Chek #100 ea 10/31/23 Unk nown Rx Guide test strips) potassium chloride 8 mEq 8 meq PO BID #180 caps 02/24 Unknown Rx capsule,extended release albuterol sulfate 90 mcg/actuation 2 inh inhalation Q6 H PRN 05/30/24 Unknown Rx aerosol inhaler bronchospasm #8.5 grams accu-check avivia control solutions #1 BOTTLE 07/23/24 Unknown Rx amlodipine 10 mg tablet 10 mg PO DAILY BLOOD PRESSUR E #90 07/23/24 Unknown Rx tabs atorvastatin 10 mg tablet 10 mg PO QHS CHOLESTEROL #90 tabs 07/23/24 Unknown Rx ergocalciferol (vitamin D2) 1,250 1,250 mcg PO QWEEK # 14 caps 07/23/24 Unknown Rx mcg (50,000 unit) capsule irbesartan 300 1 tab PO DAILY BP #90 tabs 1 09/23/23 Unknown Rx mg-hydrochlorothiazide 12.5 mg tablet (Avalide) lansoprazole 30 mg capsule,delayed 30 mg PO DAILY #90 caps 07/23/24 Unknown Rx release levothyroxine 75 mcg tablet 75 mcg PO DAILY THYROID #9 0 tabs 07/23/24 Unknown Rx metformin 500 mg tablet 500 mg PO BID DIABETES #180 tabs 07/23/24 Unknown Rx metoprolol tartrate 25 mg tablet 25 mg PO BID BLOOD CO ESSURE #180 07/23/24 Unknown Rx tabs Allergy/AdvReac Type Severity Reaction Status Date / Time Penicillins Allergy Rash Verified 10/04/24 13:39 Sulfa (Sulfonamide Allergy Rash Verified 10/04/24 13:39 Antibiotics) calcium AdvReac Constipatio Verified 10/04/24 13:39 n sertraline AdvReac Constipatio Verified 10/04/24 13:39 n Family History Mother Diabetes Heart disease Arthritis Hypertension Hyperlipemia Father Colon cancer Heart disease Hypertension Hyperlipemia Cancer prostate Myocardial infarction Surgical History (Updated 10/04/24 @ 13:54 by Kourtney Hernandez) Hx laparoscopic cholecystectomy History of ERCP History of colonoscopy Cataracts, bilateral H/O: hysterectomy Cholecystectomy planned Social History Smoking Status: Never smoker alcohol intake: never substance use type: does not use what type of physical activity do you participate in: other details: yard work additional social history: pt denies vaping, denies marijuana use, denies edibles, denies aspirin, denies ibuprofen use. Audit: Pertinent Findings Pertinent Findings EKG Perinent findings: Normal sinus rhythm Minimal voltage criteria for LVH, may be normal variant ( R in aVL ) Borderline ECG Stress test pertinent findings: Normal pharmacologic myocardial perfusion stress test. The gated ejection fraction 79%. Recommendation Anesthesia Recommendation Anesthesia recommendation: OPTIMIZED for anesthesia
[2024-10-09] VITALS (8 sets, daily range): BP systolic 100–154; BP diastolic 58–77; PULSE 16–71; RESP 16–18; TEMP 36.2–37.3; O2SAT 93–96; BMI 37.0
--- NOTE | 2024-10-09 | IMM_PTH ---
PATIENT: DL PALOMINO LOC: EN U#:[id number] AGE/SX: 79/F ROOM: RE10/09/[address]: Dr. Trevon Vee MD : 1945 BED: DIS: 10/09/2024 SPEC #: [id number] RECD: 10/10/24 10:37 STATUS: FREDA REQ #: [id number] KHANH: 10/09/24 00:[address]: Trevon Vee DEPT: IMMUNOHISTOCHEMISTRY RECD BY: Oniel Cage ENTERED: 10/10/24 10:37 SP TYPE: IMMUNO OTHR DR: Dr. Shoshana Condon MD Tissues: Esophagus, NOS Procedures: P53 (initial) KI-67 (add) PHYSICIAN & INSTITUTION [place] [address] SPECIMEN INFORMATION: Tissue Source: Gastroesophageal junction biopsy Clinical Info: Abdominal discomfort, black stool Specimen Number: [id number] CPT code: 68169,61790 METHODOLOGY: Deparaffinized sections of prefer/formalin-fixed tissue or PAP/DQ stained slides are incubated with monoclonal/polyclonal antibodies/oligonucleotide probes. Localization is made via biotin free immunoperoxidase method. Appropriate controls are performed and reacted as expected. Results on target cell population are indicated in the following table: RESULTS: ANTIBODY / CLONE RESULT P53 (DO-7) positive, focal and weak (wild type pattern) Ki-67 (30-9) positive, low These tests were developed and their performance characteristics determined by [facility]. They may not have been cleared or approved by the U.S. Food and Drug Administration. The FDA has determined that such clearance or approval is not necessary. The above immunohistochemical/dualISH markers are ordered and reviewed by the Pathologist. INTERPRETATION: Gastroesophageal junction, biopsy: Negative for dysplasia. 10/10/2024
--- NOTE | 2024-10-09 07:03 | PCM.PRE.AN2 ---
ASA Classification* ASA Classification ASA Classification: 3 Assessment & Plan Anesthesia* Anesthesia Assessment Anesthesia Assessment: Discussed sedation and/or anesthesia options, risks, benefits, and alternatives with patient/parents/legal guardian/POA. Questions invited. The patient/parents/legal guardian/POA seems to understand and agrees to proceed with anesthesia plan. Reviewed the physical assessment, medical history, allergy history and patient home medications list prior to surgery/procedure/anesthetic and documented any changes. Performed airway and anesthesia risk assessments. Anesthesia Type Anesthesia Type: MAC History Source History Obtained from:: Patient and Chart Anesthesia Focused Assessment* Temperature: 97.1 F Pulse Rate: 71 Blood Pressure: 154/77 Respiratory Rate: 16 Pulse Ox: 96 Oxygen Delivery Method: Room Air Airway Assessment Mouth opens: >3 cm Mallampati Score: II Teeth Condition: Caps/Crowns (Patient has couple of caps. They are tight.) Neck Range of motion (ROM): Limited ROM Focused Labs Anesthesia Preop lab: CBC WBC 8.6 K/mm3 (4.4-11.0) 07/03/24 06:14 07/03/24 RBC 4.10 M/mm3 (4.2-5.4) L 07/03/24 06:14 07/03/24 Hgb 11.1 g/dL (12.0-15.0) L 07/03/24 06:14 07/03/24 Hct 33.8 % (37-47) L 07/03/24 06:14 07/03/24 Plt Count 324 K/mm3 (150-450) 07/03/24 06:14 07/03/24 CHEMISTRY Potassium 3.3 mmol/L (3.5-5.1) L 07/03/24 06:14 07/03/24 Sodium 127 mmol/L (136-145) L 07/03/24 06:14 07/03/24 Magnesium 2.0 mg/dL (1.6-2.6) 07/27/23 08:58 07/27/23 BUN 11 mg/dL (7-18) 07/03/24 06:14 07/03/24 Creatinine 0.86 mg/dL (0.55-1.02) 07/03/24 06:14 07/03/24 Glucose 176 mg/dL (74-106) H 07/03/24 06:14 07/03/24 POC Glucose 137 mg/dL (74-106) H 02/02/22 07:16 02/02/22 TSH 2.630 uIU/mL (0.358-3.740) 06/15/24 07:00 06/15/24 COAG PT 12.5 SECONDS (11.7-14.9) 06/01/20 17:35 06/01/20 Pre-Assessment Diagnosis/Proposed Procedure Planned Operative Procedure(s): EGD Anesthesia History 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 When Was Last Pacemaker Check QUESTION #4 FULL TEXT: You/Your Family Experience fever (hyperthermia) with Anesthesia Last Oral Intake Last Oral intake: Last Oral Intake NPO since 05:30 10/09/24 06:47 Meds taken in AM with sips of Yes 10/09/24 06:47 water? Meds patient instructed to see home med list 10/09/24 06:47 take am of surgery Any additional information?: Yes NPO since: 06:00 (Patient took her meds at 6 AM) Meds taken in AM with sips of water?: Yes PONV PONV - superintendent service: PONV - superintendent service Female Yes 10/04/24 13:54 HX of Motion Sickness No 10/04/24 13:54 HX of N/V After Surgery No 10/04/24 13:54 Non-Smoker Yes 10/04/24 13:54 Duration of Surgery greater No 10/04/24 13:54 than 60 minutes Number of Risk Factors 2 10/04/24 13:54 PONV Score Moderate Risk 10/04/24 13:54 Height & Weight Height & Weight: Anesthesia: Height & Weight Height 5 ft 10/09/24 06:47 Weight: 86 kg 10/09/24 06:47 Body Mass Index (BMI) 37.0 10/09/24 06:47 Respiratory Assessment Respiratory Assessment - superintendent service: Respiratory Tract Infection Hx - superintendent service Hx Respiratory Tract Infection No 10/04/24 13:54 STOP Sleep Apnea STOP Sleep Apnea - superintendent service: STOP Sleep Apnea - superintendent service Hx Hypertension Yes: CONTROLLED ON MED 10/04/24 13:54 Hx Sleep Apnea No 10/04/24 13:54 CPAP No 10/04/24 13:54 BIPAP No 10/04/24 13:54 Do you snore loudly (louder No 10/04/24 13:54 than talking or can be heard Do you often feel tired/ No 10/04/24 13:54 fatigued/ sleepy during daytime? Has anyone observed you stop No 10/04/24 13:54 breathing during sleep? STOP Results Negative 10/04/24 13:54 QUESTION #5 FULL TEXT : Do you snore loudly (louder than talking or can be heard through closed doors)? Tobacco Use History Tobacco Use History - superintendent service: Tobacco Use History - superintendent service Tobacco Use Smoking Status Never smoker 10/04/24 13:54 Hx Tobacco Use No 10/04/24 13:54 Years Smoking Packs Smoked per Day Smoking Cessation Date was within the last 15 years Hx Smoking Cessation Date Hx Smoking Cessation Counseling Hematologic Medial History Hematologic Hx - superintendent service: Hematologic Medical Hx - rubber down Hx of Blood Transfusion No 10/04/24 13:54 Hx of Transfusion in last 3 No 10/04/24 13:54 Months Date of Last Transfusion (if within last 3 months) Ever experience any problems No 10/04/24 13:54 with transfusion(s)? Specify any problems Hx of Preganancy in last 3 No 10/04/24 13:54 Months Nurse Filling Out Transfusion VCHRISTIN 10/04/24 13:54 & Questions: Date: 10/04/24 10/04/24 13:54 Time: 13:55 10/04/24 13:54 Patient unable to answer at this time (ie. confused, unrespo /Reproduction History /Reproductive History - superintendent service: /Reproductive Hx- superintendent service Hx Now Gestational Age (in weeks): EDC: Hx Hx Para Hx Section SAB PFSH Medical History Cancer On home oxygen therapy Hypertension Abdominal discomfort Occult blood positive stool Back pain Black stool Acute URI Urinary tract infection Need for influenza vaccination Syncope Wears glasses Post-menopausal Thyroid disease Diabetes Walker as ambulation aid Ambulates with cane Injury of head and neck Gastric reflux Non-smoker History of edema History of echocardiogram History of stress test Bronchitis Shortness of breath on exertion Obesity History of COVID-19 Incontinence Difficulty balancing when standing Knee pain Diarrhea Hemorrhoids COVID-19 Pancreatitis Asthma Arthritis Seasonal allergies Osteopenia Essential hypertension Ascending cholangitis Gallstone pancreatitis Home Medications ?Medication ?Instructions ?Recorded ?Last Taken ?Type lancets (Accu-Chek Multiclix #100 ea 07/02/20 Unknown History Lancet) fluticasone propionate 110 2 puff inhalation BID #12 grams 12/07/21 Unknown Rx mcg/actuation HFA aerosol inhaler (Flovent HFA) geriatric multivitamin-min 1 tab PO .QOD 01/28/22 10/08/24 History handicap placard #1 ea 07/06/23 Unknown Rx blood-glucose meter #1 ea 07/11/23 Unknown Rx lancets (Accu-Chek Softclix #100 ea 07/11/23 Unknown Rx Lancets) alcohol swabs 1 pad topical BID #100 ea 07/18/23 Unknown Rx blood sugar diagnostic (Accu-Chek #100 ea 10/31/23 Unknown Rx Guide test strips) potassium chloride 8 mEq 8 meq PO BID #180 caps 02/25/24 10/08/24 Rx capsule,extended release albuterol sulfate 90 mcg/actuation 2 inh inhalation Q6H PRN 05/30/24 Unknown Rx aerosol inhaler bronchospasm #8.5 grams accu-check avivia control solutions #1 BOTTLE 07/23/24 Unknown Rx amlodipine 10 mg tablet 10 mg PO DAILY BLOOD PRESSURE #90 07/23/24 10/09/24 Rx tabs atorvastatin 10 mg tablet 10 mg PO QHS CHOLESTEROL #90 tabs 07/23/24 10/08/24 Rx ergocalciferol (vitamin D2) 1,250 1,250 mcg PO QWEEK #14 caps 07/23/24 10/08/24 Rx mcg (50,000 unit) capsule irbesartan 300 1 tab PO DAILY BP #90 tabs 07/23/24 10/08/24 Rx mg-hydrochlorothiazide 12.5 mg tablet (Avalide) lansoprazole 30 mg capsule,delayed 30 mg PO DAILY #90 caps 07/23/24 10/08/24 Rx release levothyroxine 75 mcg tablet 75 mcg PO DAILY THYROID #90 tabs 07/23/24 10/09/24 Rx metformin 500 mg tablet 500 mg PO BID DIABETES #180 tabs 07/23/24 10/05/24 Rx metoprolol tartrate 25 mg tablet 25 mg PO BID BLOOD PRESSURE #180 07/23/24 10/09/24 Rx tabs Allergy/AdvReac Type Severity Reaction Status Date / Time Penicillins Allergy Rash Verified 10/09/24 06:32 Sulfa (Sulfonamide Allergy Rash Verified 10/09/24 06:32 Antibiotics) calcium AdvReac Constipatio Verified 10/09/24 06:32 n sertraline AdvReac Constipatio Verified 10/09/24 06:32 n Family History Mother Diabetes Heart disease Arthritis Hypertension Hyperlipemia Father Colon cancer Heart disease Hypertension Hyperlipemia Cancer prostate Myocardial infarction Surgical History Hx laparoscopic cholecystectomy History of ERCP History of colonoscopy Cataracts, bilateral H/O: hysterectomy Cholecystectomy planned Social History Smoking Status: Never smoker alcohol intake: never substance use type: does not use what type of physical activity do you participate in: other details: yard work additional social history: pt denies vaping, denies marijuana use, denies edibles, denies aspirin, denies ibuprofen use. Review of Systems (Anesthesia) ROS Narrative System reviewed and no additional complaints, except as documented.
--- NOTE | 2024-10-09 07:12 | HP.PCM_ITS ---
History and Physical Date of Admission: 10/09/24 Intake Vital Signs 08/22/2507:34 09/05/2512:47 Height 4 ft 11 in 5 ft Weight: 188 lb 189 lb 8 oz BMI 38.0 37.0 BP 135/72 H 146/73 H Blood Pressure Location Rt brachial Rt brachial Position Sitting Sitting Respiration 18 17 Pulse 77 80 Pulse Source Monitor Monitor Temp 98.1 F Temp Source Temporal Pulse Oximetry (%) 95 92 Oxygen Delivery Method room air room air Intake Visit Reasons: GERD & POSITIVE OCCULT Chief Complaint: gerd positive occult Is patient in pain?: No Allergies Penicillins Allergy (Verified 09/05/24 13:48) RashSulfa (Sulfonamide Antibiotics) Allergy (Verified 09/05/24 13:48) Rashcalcium Adverse Reaction (Verified 09/05/24 13:48) Constipationsertraline Adverse Reaction (Verified 09/05/24 13:48) Constipation Medications ?Medication ?Instructions ?Recorded ?Confirmed ?Type lancets (Accu-Chek Multiclix #100 ea 07/02/20 09/05/24 History Lancet) fluticasone propionate 110 2 puff inhalation BID #12 grams 12/07/21 09/05/24 Rx mcg/actuation HFA aerosol inhaler (Flovent HFA) geriatric multivitamin-min 1 tab PO MOTH 01/28/22 09/05/24 History handicap placard #1 ea 07/06/23 09/05/24 Rx blood-glucose meter #1 ea 07/11/23 09/05/24 Rx lancets (Accu-Chek Softclix #100 ea 07/11/23 09/05/24 Rx Lancets) alcohol swabs 1 pad topical BID #100 ea 07/18/23 09/05/24 Rx blood sugar diagnostic (Accu-Chek #100 ea 10/31/23 09/05/24 Rx Guide test strips) potassium chloride 8 mEq 8 meq PO BID #180 caps 02/25/24 09/05/24 Rx capsule,extended release albuterol sulfate 90 mcg/actuation 2 inh inhalation Q6H PRN 05/30/24 09/05/24 Rx aerosol inhaler bronchospasm #8.5 grams accu-check avivia control solutions #1 BOTTLE 07/23/24 09/05/24 Rx amlodipine 10 mg tablet 10 mg PO DAILY BLOOD PRESSURE #90 07/23/24 09/05/24 Rx tabs atorvastatin 10 mg tablet 10 mg PO QHS CHOLESTEROL #90 tabs 07/23/24 09/05/24 Rx ergocalciferol (vitamin D2) 1,250 1,250 mcg PO QWEEK #14 caps 07/23/24 09/05/24 Rx mcg (50,000 unit) capsule irbesartan 300 1 tab PO DAILY BP #90 tabs 07/23/24 09/05/24 Rx mg-hydrochlorothiazide 12.5 mg tablet (Avalide) lansoprazole 30 mg capsule,delayed 30 mg PO DAILY #90 caps 07/23/24 09/05/24 Rx release levothyroxine 75 mcg tablet 75 mcg PO DAILY THYROID #90 tabs 07/23/24 09/05/24 Rx metformin 500 mg tablet 500 mg PO BID DIABETES #180 tabs 07/23/24 09/05/24 Rx metoprolol tartrate 25 mg tablet 25 mg PO BID BLOOD PRESSURE #180 07/23/24 09/05/24 Rx tabs ondansetron 4 mg disintegrating 4 mg PO Q8H PRN nausea and 08/23/24 09/05/24 Rx tablet vomiting #10 tabs Have you fallen in the past year?: No PFSH Medical History (Updated 09/05/24 @ 13:47 by Adele Baca) Abdominal discomfort Occult blood positive stool Back pain Black stool Acute URI Urinary tract infection Need for influenza vaccination Syncope Wears glasses Post-menopausal Thyroid disease Diabetes Walker as ambulation aid Ambulates with cane Injury of head and neck Gastric reflux Non-smoker History of edema History of echocardiogram History of stress test Bronchitis Shortness of breath on exertion Obesity History of COVID-19 Incontinence Difficulty balancing when standing Knee pain Diarrhea Hemorrhoids COVID-19 Pancreatitis Asthma Arthritis Seasonal allergies Osteopenia Essential hypertension Ascending cholangitis Gallstone pancreatitis Surgical History Hx laparoscopic cholecystectomy History of ERCP History of colonoscopy Cataracts, bilateral H/O: hysterectomy Cholecystectomy planned Family History Mother Diabetes Heart disease Arthritis Hypertension HyperlipemiaFather Colon cancer Heart disease Hypertension Hyperlipemia Cancer prostate Myocardial infarction Social History Smoking Status: Never smoker alcohol intake: never substance use type: does not use what type of physical activity do you participate in: other details: yard work additional social history: pt denies vaping, denies marijuana use, denies edibles, denies aspirin, denies ibuprofen use. HPI HPI HPI: Patient is a 79-year-old female who comes in with multiple complaints. She reports that for the last 2 to 3 weeks she has been having epigastric pain and nausea and she has also noted that she has had some black tarry stools. She was on Pepto-Bismol during this admission may be from that but she is reporting that the only thing that helped was restarting her lansoprazole. ROS General General: Yes fatigue; No weight change, appetite, colon cancer, breast cancer or weakness HEENT HEENT: Yes eye surgery; No difficulty swallowing, eye injury, swollen glands or hoarseness Endo Endocrine: Yes thyroid disease and diabetes mellitus; No thyroid cancer, Hair loss, heat intolerance or cold intolerance Skin Skin: No rash or changing moles Musc Musculoskeletal: No back problems, arthritis, rheumatoid arthritis, gout or joint pain Cardio Cardiovascular: Yes high blood pressure; No murmur, pacemaker, heart disease, atrial fibrillation, heart attack, heart stent, palpitations, shortness of breat with exertion or chest pain Psych Psychiatric: No depression, anxiety or hearing voices Resp Respiratory: Yes shortness of breath, No sleep apnea, No cough, No COPD, Yes asthma, No emphysema and No wheezing Gastro Gastrointestinal: Yes abdominal pain, Yes nausea or vomiting, Yes diarrhea, No constipation, Yes blood in stool, Yes acid reflux, No hemorrhoids, No ulcers, No gallbladder problem and No black,tarry stools Armani Hematologic: No blood thinners, No blood disorders, No bleeding, No anemia and No blood clots Neuro Neurologic: No system reviewed and no additional complaints, except as documented, No as per HPI, No abnormal gait, No abnormal hearing, No abnormal movements, No abnormal speech, No behavioral changes, No burning sensations, No confusion, No convulsions, No disequilibrium, No dizziness, No localized weakness, No frequent falls, No headache(s), No lack of coordination, No loss of vision, No memory loss, No numbness, No other visual disturbances, No radicular pain, No restless legs, No sensory deficit, No syncope, No tingling, No tremor(s), No weakness and No other Exam Const General: cooperative Orientation: alert and oriented x3 HENMT Head: normal to inspection Neck Neck: normal visual inspection and full ROM Chest Chest palpation & inspection: normal inspection of the chest Resp Effort & Inspection: normal respiratory effort Auscultation: clear to auscultation bilaterally Cardio Rate: regular rate Rhythm: regular rhythm GI Inspection: non-distended Palpation: soft and nontender Skin General: no rashes or lesions noted Neuro General: patient alert and patient oriented x3 Extrem General: full ROM Psych Appearance: grossly normal Mental Status: mental status grossly normal Assessment and Plan Assessment and Plan (1) Abdominal discomfort: Status: Acute (2) Black stool: Status: Acute Orders: Orders EGD Today Plan The patient is having some abdominal discomfort as well as nausea. I believe this is peptic ulcer disease as she has had some black tarry stools as well and the lansoprazole is helping. I would like to perform an EGD to evaluate the st omach lining. Continue lansoprazole. I explained endoscopy in detail to the patient. I explained the risks including but not limited to stroke or heart attack with anesthesia, perforation of the GI tract, bleeding, infection. I explained that any of these could necessitate further emergency surgery. The patient understands and all questions were answered sufficiently. The patient wishes to proceed with procedure. Trevon Vee MD Pager: [facility] [address] [place] [address], [address] [place] [phone] Office: I have examined the patient and the H&P has been reviewed. There are no clinical changes since date of exam.
--- NOTE | 2024-10-09 07:30 | EGD_PTH ---
PATIENT: DL PALOMINO LOC: EN U#:[id number] AGE/SX: 79/F ROOM: RE10/09/[address]: Dr. Trevon Vee MD : 1945 BED: DIS: 10/09/2024 SPEC #: [id number] RECD: 10/09/24 10:21 STATUS: FREDA CHI #: [id number] KHANH: 10/09/24 07:[address]: Trevon Vee DEPT: SURGICAL PATHOLOGY RECD BY: Delfina Reyes ENTERED: 10/09/24 11:57 SP TYPE: EGD BIOPSY OT DR: Dr. Shoshana Condon MD Tissues: Esophagus, NOS Procedures: Special Stain Group I Surgery Specimen Level IV Alcian Blue/PAS (control) HEADER OPERATION: EGD, biopsy PRE-OP DIAGNOSIS: Abdominal discomfort, black stool TISSUE SUBMITTED: Gastroesophageal junction biopsy MICROSCOPIC DIAGNOSIS Gastroesophageal junction, biopsy: Fragments of gastric mucosa with intestinal metaplasia (goblet cell metaplasia), consistent with Tapia's esophagus. Chronic inflammation. Negative for dysplasia. See comment. 10/10/2024 COMMENT Alcian blue/PAS stain with matched control is used in the evaluation of the specimen. Immunohistochemistry ([id number]) for P53 and Ki-67 will be performed and results will be reported separately. MICROSCOPIC DESCRIPTION Slides are reviewed. GROSS DESCRIPTION Received in fixative is one container labeled with the patient's name and designated GE junction biopsy. The specimen consists of two irregular fragments of light quinn soft tissue that in aggregate measure 0.7 x 0.2 x 0.2 cm. The specimen is totally submitted in one cassette. MITCH 10/09/2024 TC:3 CPT:07048,86836
--- NOTE | 2024-10-09 07:41 | OP.EGD_ITS ---
Patient Name: Carmen Parsons Procedure Date: 10/09/2024 7:28 AM Date of : 1945 Age: 79 Procedure: Upper GI endoscopy Indications: Epigastric abdominal pain, Melena Providers: Trevon Vee MD Referring MD: Shoshana Condon Medicines: Propofol per Anesthesia Patient Profile: This is a 79 year old female. Refer to note in patient chart for documentation of history and physical. Complications: No immediate complications. Estimated blood loss: Minimal. Procedure: Pre-Anesthesia Assessment: - Prior to the procedure, a History and Physical was performed, and patient medications and allergies were reviewed. The patient's tolerance of previous anesthesia was also reviewed. The risks and benefits of the procedure and the sedation options and risks were discussed with the patient. All questions were answered, and informed consent was obtained. Prior Anticoagulants: The patient has taken no anticoagulant or antiplatelet agents. After reviewing the risks and benefits, the patient was deemed in satisfactory condition to undergo the procedure. After obtaining informed consent, the endoscope was passed under direct vision. Throughout the procedure, the patient's blood pressure, pulse, and oxygen saturations were monitored continuously. The Endoscope was introduced through the mouth, and advanced to the third part of duodenum. The upper GI endoscopy was accomplished without difficulty. The patient tolerated the procedure well. Scope In: 7:32:06 AM Scope Out: 7:35:47 AM Total Procedure Duration Time 0 hours 3 minutes 41 seconds Findings: One tongue of salmon-colored mucosa was present. Biopsies were taken with a cold forceps for histology. Multiple pedunculated polyps with no bleeding and no stigmata of recent bleeding were found in the stomach. Impression: - [place]-colored mucosa suspicious for short-segment Tapia's esophagus. Biopsied. - Multiple gastric polyps. Recommendation: - Discharge patient to home. - Resume previous diet. - Continue present medications. - Await pathology results. Procedure Code(s): --- Professional --- 13261, Esophagogastroduodenoscopy, flexible, transoral; with biopsy, single or multiple Diagnosis Code(s): --- Professional --- K22.89, Other specified disease of esophagus K31.7, Polyp of stomach and duodenum R10.13, Epigastric pain K92.1, Melena (includes Hematochezia) CPT copyright 2021 [employer]. All rights reserved. The codes documented in this report are preliminary and upon dry chain offbearer review may be revised to meet current compliance requirements. Trevon Vee MD 10/09/2024 7:40:56 AM This report has been signed electronically. Number of Addenda: 0 Note Initiated On: 10/09/2024 7:28 AM
--- NOTE | 2024-10-09 07:41 | OP.CCLET_ITS ---
10/09/2024 Shoshana Condon [facility] [address] [place] [address] Re : Upper GI endoscopy procedure for Carmen Parsons Dear Dr. Condon This procedure was performed on Wednesday, October 09, 2024. My impressions and recommendations are as follows: Impressions : - [place]-colored mucosa suspicious for short-segment Tapia's esophagus. Biopsied. - Multiple gastric polyps. Recommendations : - Discharge patient to home. - Resume previous diet. - Continue present medications. - Await pathology results. My findings are described in the full procedure note, which is enclosed. If I can be of further assistance, please feel free to contact me at Doctor phone number(s): , Work: . Sincerely, Trevon Vee MD 10/09/2024 7:40:56 AM This report has been signed electronically.
--- NOTE | 2024-10-09 07:45 | PCM.POST.ANE ---
Anesthesia: Postop Eval I Current Vital Signs Temperature: 98 F Pulse Rate: 16 Blood Pressure: 111/63 Respiratory Rate: 16 Pulse Ox: 95 Oxygen Delivery Method: Room Air Assessment Airway patent: Yes Spontaneous unlabored respirations: Yes Mental status: Awake nausea: No Vomiting: No Anesthesia Complication: No Fluid Hydration Crystalloid volume administer (ml): 30 Total IV fluid infused: 30 Progress Note Anesthesia document: Postop Eval 1 completed: Yes
[2024-10-09 08:52] LABS: Bedside Glucose 151 mg/dL (74-106)
--- NOTE | 2024-10-09 18:28 | PCM.POSTANE2 ---
Anesthesia Postop Eval I Sum Postop Eval Completion status Anesthesia document: Postop Eval 1 completed: Yes Anesthesia Postop Eval I Summary Anesthesia Postop Eval I Summary: Anesthesia Postop Eval I: Assessment Summary Airway patent Yes 10/09/24 07:46 [email or web address] Spontaneous unlabored Yes 10/09/24 07:46 [email or web address] respirations Mental status Awake 10/09/24 07:46 [email or web address] nausea No 10/09/24 07:46 [email or web address] Vomiting No 10/09/24 07:46 [email or web address] Anesthesia Postop Eval I: Fluid Summary Crystalloid volume administer 30 10/09/24 07:46 [email or web address] (ml) Colloids volume administered ( ml) Blood Product volume administered (ml) Total IV fluid infused 30 10/09/24 07:46 [email or web address] Anesthesia Postop Eval I: Summary Notes Anesthesia Complication No 10/09/24 07:46 [email or web address] Anesthesia Complication Comment: Post-operative progress note Anesthesia: Postop Eval II Evaluation Mental status: Awake and Calm Pain Level: 0 nausea: No Vomiting: No Complications Anesthesia Complication: No
== END 2024-10-09 08:19 | disposition home or self-care (01) ==
LOC: EN 06:21 → AC 06:24
PROVIDERS: PCP Internal Medicine; Referring Provider Internal Medicine; Visit Provider Surgery
PROC: 0DJ08ZZ Inspection of Upper Intestinal Tract, Via Natural or Artificial Opening Endoscopic (ICD-10-PCS; CPT 43235; principal; 2024-10-09 07:25)
DX: K22.70 Barrett's esophagus without dysplasia (principal); E11.9 Type 2 diabetes mellitus without complications; I10 Essential (primary) hypertension; K31.7 Polyp of stomach and duodenum; K21.00 Gastro-esophageal reflux disease with esophagitis, without bleeding; Z79.899 Other long term (current) drug therapy; J45.909 Unspecified asthma, uncomplicated; Z79.84 Long term (current) use of oral hypoglycemic drugs; Z79.890 Hormone replacement therapy; E07.9 Disorder of thyroid, unspecified
CPT/HCPCS: 43239; 82962; 88305; 88312; 88341; 88342; A4216; J2405

== ENCOUNTER → 2025-01-29 | Outpatient (CLI) | payer MEDICARE, SELFPAY ==
[2025-01-29 09:08] LABS: Absolute Lymphocyte Count 2.23 X10^3/uL (0.83-4.51); Absolute Neutrophil Count 4.3 X10^3/uL (2.0-7.7); Basophil# 0.07 X10^3/uL; Basophil% 0.9 % (0-1); Eosinophil# 0.34 X10^3/uL; Eosinophils% 4.5 % (0-5); Hematocrit 36.7 % (37-47); Lymphocyte # 2.23 X10^3/ul (0.83-4.51); Lymphocyte % 29.3 % (19-41); Mean Corp Hgb Conc 32.7 g/dL (32-36); Mean Corpuscular Hgb 26.6 pg (27.0-32.0); Mean Corpuscular Volume 81.4 fL (81-99); Mean Platelet Vol. 9.7 fl (6.2-12.0); Monocyte# 0.63 X10^3/uL; Monocyte% 8.3 % (0-10); NRBC Flagged by Analyzer 0 % (0-5); Neutrophil # 4.32 X10^3/uL (2.7-7.7); Neutrophil % 56.7 % (47-70); Platelet Count 407 K/mm3 (150-450); RBC Distribution Width CV 14.6 % (11.6-14.6); RBC Distribution Width SD 43.1 fl (35.1-43.9); Red Blood Count 4.51 M/mm3 (4.2-5.4); White Blood Count 7.6 K/mm3 (4.4-11.0)
[2025-01-29 10:08] LABS: Hemoglobin A1c 8.4 % (<=5.6)
[2025-01-29 15:25] LABS: ALB/GLOB Ratio 1.3 RATIO (0.9-2.4); AST(SGOT) 17 U/L (<=31); Alanine Aminotransfer ALT/SGPT 18 U/L (<=34); Albumin, Serum 4.1 g/dL (3.4-4.8); Alkaline Phosphatase 87 U/L (35-104); Anion Gap 10 (5-15); BUN 11 mg/dL (4-19); BUN/Creat Ratio 14.2 RATIO (10-20); Calcium,Total 9.4 mg/dL (7.6-11.0); Carbon Dioxide 27.9 mmol/L (21.0-32.0); Chloride 98 mmol/L (98-108); Cholesterol 129 mg/dL (<=200); Creatinine, Serum 0.74 mg/dL (0.70-1.20); EST Glomerular Filtration Rate 82 (>60); Free T3 2.6 pg/mL (2.18-3.98); Globulin 3.1 g/dL (2.2-4.2); Glucose 167 mg/dL (70-99); High Density Lipoprotein 58 mg/dL; Low Density Lipoprotein Calc. 54 mg/dL; Magnesium 1.7 mg/dL (1.5-2.2); Potassium 4.3 mmol/L (3.3-5.1); Protein, Total 7.2 g/dL (5.9-8.4); Sodium Level 136 mmol/L (133-145); Triglycerides 88 mg/dL; Very Low Density Lipoprotein 18 mg/dL (5-40); Vitamin B12 434 pg/mL (180-914); Vitamin D,25 Hydroxy 44.4 ng/mL (30-100); cholesterol:hdl ratio screen 2.24
== END | disposition home or self-care (01) ==
LOC: LAB 08:19
PROVIDERS: PCP Internal Medicine; Referring Provider Internal Medicine; Visit Provider Internal Medicine
DX: E78.5 Hyperlipidemia, unspecified (principal); E11.65 Type 2 diabetes mellitus with hyperglycemia; Z13.220 Encounter for screening for lipoid disorders; E03.9 Hypothyroidism, unspecified; I10 Essential (primary) hypertension; E66.9 Obesity, unspecified; M85.80 Other specified disorders of bone density and structure, unspecified site; E53.8 Deficiency of other specified B group vitamins; E55.9 Vitamin D deficiency, unspecified
CPT/HCPCS: 36415; 80053; 80061; 82306; 82607; 83036; 83735; 84439; 84443; 84481; 85025

== ENCOUNTER → 2025-02-05 | Outpatient (CLI) | payer MEDICARE, SELFPAY ==
--- NOTE | 2025-02-05 10:58 | BD_ITS ---
PROCEDURE: DEXA BONE DENSITY STUDY 02/05/2025 REASON FOR EXAM: OSTEOPOROSIS F, age 79 y/o . TECHNIQUE: DEXA BONE DENSITY STUDY COMPARISON: None FINDINGS: BMD and T-SCORES Lumbar spine: 0.942 g/cm2, T-score -0.3 Levels: L1 through L2 Left femoral neck: 0.710 g/cm2, T-score -1.2 Femoral neck comparison data not recommended for monitoring change. Left total hip: 0.826 g/cm2, T-score -1.0 Right femoral neck: 0.809 g/cm2, T-score -0.4 Femoral neck comparison data not recommended for monitoring change. Right total hip: 0.853 g/cm2, T-score -0.7 The World Health Organization has defined the following categories based on bone density: Normal bone density: T-score equal to or greater than -1.0 Osteopenia: T-score between -1.0 and -2.5 Osteoporosis: T-score equal to or less than -2.5 FRAX (or Comparable) Fracture Risk Assessment: 10 Year Probability of Fracture: Major Osteoporotic Fracture: 16% Hip Fracture: 3.5% (Note: FRAX is not to be reported in setting of normal range bone density, osteoporosis on DEXA, known history of osteoporosis, prior osteoporotic hip or vertebral fracture, or for any patient undergoing pharmacological treatment for bone loss.) The National Osteoporosis Foundation (NOF) recommends pharmacological treatment for patients with a FRAX 10-year risk of 3% or higher for a hip fracture, or 20% or higher for a major osteoporotic fracture, to prevent osteoporosis and reduce fracture risk. The patient does meet the pharmacological treatment recommendations for prevention of osteoporosis. BD/Dexa Bone Density Study IMPRESSION: OSTEOPENIA. Reading Location: [id number]
--- NOTE | 2025-02-05 12:00 | BI_ITS ---
EXAM: SCRN MAMM (CAD)W/GONSALO BILAT DATE: 02/05/2025 CLINICAL HISTORY: F, Age 79 y/o , BREAST CANCER SCREENING History of maternal aunt with breast cancer. TECHNIQUE: SCRN MAMM (CAD)W/GONSALO BILAT COMPARISON: Prior exam(s) dated January 30, 2024.. FINDINGS: TISSUE DENSITY: The breast tissue is composed of scattered areas of fibroglandular density. Bilateral Breast Mammographic Findings: No significant masses, calcifications or other abnormalities are identified. Stable scattered bilateral calcifications most likely secretory calcifications. No focal cluster is seen. Stable fat containing bilateral axillary lymph nodes. No suspicious masses, areas of developing architectural distortion, or suspicious calcifications. There has been no significant interval change. BI/SCRN MAMM (CAD)W/GONSALO BILAT IMPRESSION: Stable examination. OVERALL FINAL ASSESSMENT BI-RADS 2: BENIGN RECOMMEND ANNUAL MAMMOGRAPHIC SCREENING. RECOMMENDATION: Routine annual follow-up in 1 Year A letter with findings and recommendations will be mailed to the patient. Reading Location: [facility]
== END | disposition home or self-care (01) ==
LOC: OPBI 10:52
PROVIDERS: PCP Internal Medicine; Referring Provider Internal Medicine; Visit Provider Internal Medicine
DX: Z12.31 Encounter for screening mammogram for malignant neoplasm of breast (principal); M81.0 Age-related osteoporosis without current pathological fracture
CPT/HCPCS: 77063; 77067; 77080

== ENCOUNTER → 2025-02-16 | Outpatient (CLI) | payer MEDICARE, SELFPAY | END | disposition home or self-care (01) | LOC: LABSPEC 14:43 | PROVIDERS: PCP Internal Medicine; Visit Provider Nurse Practitioner Family | DX: R30.0 Dysuria (principal) | CPT/HCPCS: 87086; 87088 ==

== ENCOUNTER 2025-02-18 21:15 | Emergency (ER) | payer MEDICARE, SELFPAY ==
[2025-02-18 21:15] VITALS: BP 161/86; PULSE 90; RESP 18; TEMP 36.9; O2SAT 95
[2025-02-18 23:40] VITALS: BP 108/91; PULSE 71; PULSE 73; RESP 18; TEMP 37.2; O2SAT 94; O2SAT 95; BMI 38.1
[2025-02-19] VITALS: BP 121/54; PULSE 74; RESP 18; TEMP 37.2; O2SAT 96
[2025-02-19 00:50] LABS: Hematocrit 37.3 % (37-47); Hemoglobin 12.2 g/dL (12.0-15.0); Immature Granulocytes Count 0.020 X10^3/uL (0.0-0.0); Mean Corp Hgb Conc 32.7 g/dL (32-36); Mean Corpuscular Volume 80.7 fL (81-99); Mean Platelet Vol. 10.2 fl (6.2-12.0); NRBC Flagged by Analyzer 0 % (0-5); Platelet Count 346 K/mm3 (150-450); RBC Distribution Width CV 15.2 % (11.6-14.6); RBC Distribution Width SD 44.6 fl (35.1-43.9); Red Blood Count 4.62 M/mm3 (4.2-5.4); White Blood Count 8.8 K/mm3 (4.4-11.0)
--- NOTE | 2025-02-19 01:00 | RAD_ITS ---
PROCEDURE: CHEST PA AND LATERAL 02/19/2025 REASON FOR EXAM: DYSPNEA TECHNIQUE: CHEST PA AND LATERAL COMPARISON: 2023 FINDINGS: Poor inspiratory effort. Exaggerated hilar bronchovascular markings suggesting mild congestion. Minimal bilateral perihilar bronchial wall thickening suggesting bronchitis. Bilateral basilar atelectasis are noted. No effusion. No pneumothorax. Normal cardiac size. Aortic atherosclerotic calcifications. Moderate dextroscoliosis. No definite acute trips abnormalities RAD/Chest PA and Lateral IMPRESSION: Poor inspiratory effort. Exaggerated hilar bronchovascular markings suggesting mild congestion. Minimal bilateral perihilar bronchial wall thickening suggesting bronchitis. N ew as compared to the. Follow-up is advised Reading Location: [facility]
[2025-02-19 01:09] VITALS: PULSE 67; RESP 16
[2025-02-19 01:23] LABS: Lipase 27 U/L (13-75)
[2025-02-19 01:34] LABS: AST(SGOT) 58 U/L (<=31); Alanine Aminotransfer ALT/SGPT 47 U/L (<=34); Albumin, Serum 4.0 g/dL (3.4-4.8); Alkaline Phosphatase 118 U/L (35-104); Anion Gap 13 (5-15); BUN 10 mg/dL (4-19); BUN/Creat Ratio 9.8 RATIO (10-20); Bilirubin, Direct 0.68 mg/dL (0.00-0.30); Calcium,Total 9.3 mg/dL (7.6-11.0); Carbon Dioxide 24.0 mmol/L (21.0-32.0); Chloride 92 mmol/L (98-108); Estimated Creatinine Clearance 45.99 ml/min (50-250); Globulin 1.8 g/dL (2.2-4.2); Glucose 169 mg/dL (70-99); Potassium 4.2 mmol/L (3.3-5.1)
[2025-02-19 01:35] LABS: Pro- Brain NATRIURETIC PEPTIDE 151 pg/mL (<=1800)
[2025-02-19 01:38] LABS: Troponin T High Sensitivity 20 ng/L (<=14)
[2025-02-19 02:04] LABS: Mucous, Urine 0 SEEN /hpf (<or=2+); Red Blood Cells-Urine 0 SEEN /hpf (0-5)
[2025-02-19 02:05] VITALS: BP 140/64; PULSE 74; RESP 18; O2SAT 98
[2025-02-19 02:06] LABS: Color, Urine Yellow (Yellow); Glucose, Dipstick Normal (Normal); Ketone-Dipstick Negative (Negative); Leukocyte Esterase-Dipstick Negative /ul (Negative); Nitrite-Dipstick Negative (Negative); Occult Blood-Urine Negative /ul (Negative); Protein-Dipstick 30 mg/dl (Negative); Specific Gravity, Urine 1.015 (1.002-1.030); Urine Bilirubin Dipstick Negative (Negative)
[2025-02-19 02:34] LABS: Squamous Epithelial Cells - UA 0-5 SEEN /hpf (5-10); Transitional Epithelial - Ur 0-5 SEEN /hpf (0-5)
[2025-02-19 03:02] LABS: Troponin T High Sens 2 HR 13 ng/L (<=14)
--- NOTE | 2025-02-19 03:11 | EX.ED.DYSGE1 ---
HPI History of Present Illness Chief Complaint: General Illness Informant: patient and spouse/S.O. Narrative Narrative: Patient is a 79-year-old female with past medical history of hypertension hypothyroidism hyperlipidemia and noa-mawmgfy-tadejqhts type 2 diabetes. She states that she had recently gone to an urgent care secondary to concern for UTI and was placed on Macrobid. She states that she took the dose this evening and then developed upper abdominal discomfort and nausea. She states that she is unsure if the symptoms were related to the medication or could they have been from a potential cardiac event. She also states that she has had cough and shortness of breath and is unsure if she may have pneumonia. She denies any fevers or chills or known sick contacts but with worsening symptoms presents for evaluation [facility] Medical History (Updated 02/19/25 @ 04:[address] Luis Weathers, ) Family history of dementia Memory deficit Cancer On home oxygen therapy Hypertension Abdominal discomfort Occult blood positive stool Back pain Black stool Acute URI Urinary tract infection Need for influenza vaccination Syncope Wears glasses Post-menopausal Thyroid disease Diabetes Walker as ambulation aid Ambulates with cane Injury of head and neck Gastric reflux Non-smoker History of edema History of echocardiogram History of stress test Bronchitis Shortness of breath on exertion Obesity History of COVID-19 Incontinence Difficulty balancing when standing Knee pain Diarrhea Hemorrhoids COVID-19 Pancreatitis Asthma Arthritis Seasonal allergies Osteopenia Essential hypertension Ascending cholangitis Gallstone pancreatitis Home Medications ?Medication ?Instructions ?Recorded ?Last Taken ?Type lancets (Accu-Chek Multiclix #100 ea 07/02/20 Unknown History Lancet) geriatric multivitamin-min 1 tab PO .QOD 01/28/22 10/08/24 History handicap placard #1 ea 07/06/23 Unknown Rx blood-glucose meter #1 ea 07/11/23 Unknown Rx lancets (Accu-Chek Softclix #100 ea 07/11/23 Unknown Rx Lancets) alcohol swabs 1 pad topical BID #100 ea 07/18/23 Unknown Rx blood sugar diagnostic (Accu-Chek #100 ea 10/31/23 Unknown Rx Guide test strips) potassium chloride 8 mEq 8 meq PO BID #180 caps 02/25/24 10/08/24 Rx capsule,extended release accu-check avivia control solutions #1 BOTTLE 07/23/24 Unknown Rx amlodipine 10 mg tablet 10 mg PO DAILY BLOOD PRESSURE #90 07/23/24 10/09/24 Rx tabs atorvastatin 10 mg tablet 10 mg PO QHS CHOLESTEROL #90 tabs 07/23/24 10/08/24 Rx ergocalciferol (vitamin D2) 1,250 1,250 mcg PO QWEEK #14 caps 07/23/24 10/08/24 Rx mcg (50,000 unit) capsule irbesartan 300 1 tab PO DAILY BP #90 tabs 07/23/24 10/08/24 Rx mg-hydrochlorothiazide 12.5 mg tablet (Avalide) levothyroxine 75 mcg tablet 75 mcg PO DAILY THYROID #90 tabs 07/23/24 10/09/24 Rx metoprolol tartrate 25 mg tablet 25 mg PO BID BLOOD PRESSURE #180 07/23/24 10/09/24 Rx tabs omeprazole 20 mg tablet,delayed 20 mg PO QDAY #60 tabs 10/23/24 Unknown Rx release albuterol sulfate 90 mcg/actuation 2 inh inhalation Q6H PRN 10/25/24 Unknown Rx aerosol inhaler bronchospasm #8.5 grams fluticasone furoate 100 1 inh inhalation Q24H #90 ea 10/29/24 Unknown Rx mcg/actuation blister powder for inhalation metformin 500 mg tablet See Rx Instructions PO BID 01/31/25 Unknown Rx DIABETES #270 tabs nitrofurantoin 100 mg PO Q12H 5 days #10 caps 02/16/25 Unknown Rx monohydrate/macrocrystals 100 mg capsule (Macrobid) omeprazole 20 mg capsule,delayed 20 mg PO DAILY 02/18/25 Unknown History release Allergy/AdvReac Type Severity Reaction Status Date / Time Penicillins Allergy Rash Verified 02/18/25 21:17 Sulfa (Sulfonamide Allergy Rash Verified 02/18/25 21:17 Antibiotics) calcium AdvReac Constipatio Verified 02/18/25 21:17 n sertraline AdvReac Constipatio Verified 02/18/25 21:17 n Family History Mother Diabetes Heart disease Arthritis Hypertension Hyperlipemia Father Colon cancer Heart disease Hypertension Hyperlipemia Cancer prostate Myocardial infarction Surgical History Hx laparoscopic cholecystectomy History of ERCP History of colonoscopy Cataracts, bilateral H/O: hysterectomy Cholecystectomy planned Social History Smoking Status: Never smoker alcohol intake: never substance use type: does not use what type of physical activity do you participate in: other details: yard work additional social history: pt denies vaping, denies marijuana use, denies edibles, denies aspirin, denies ibuprofen use. ROS ROS ED Constitutional Constitutional ED: Denies chills or fever(s) Eyes Eyes: Denies change in vision ENT ENT ED: Denies rhinorrhea or sore throat Cardiovascular Cardiovascular: Denies chest pain or palpitations Respiratory/Chest Respiratory/Chest: Reports cough and dyspnea Gastrointestinal Gastrointestinal: Reports abdominal pain and nausea; Denies diarrhea or vomiting Genitourinary Genitourinary ED: Denies dysuria, hematuria or urinary frequency Musculoskeletal Musculoskeletal: Denies back pain Integumentary Denies rash Neurologic Neurologic: Reports weakness; Denies headache(s) Hematologic/Lymphatic Hematologic/Lymphatic: Denies easy bleeding or easy bruising EXAM Physical Exam Const Vital Signs: 02/18/25 21:15 02/18/25 23:40 02/18/25 23:40 Temperature 98.4 F 99 F Temperature Source Oral Oral Pulse Rate 90 71 73 Respiratory Rate 18 18 18 Respiratory Effort Respiratory Pattern Blood Pressure 161/86 H 108/91 H 108/91 H Blood Pressure Mean 111 96 96 Pulse Ox 95 94 95 Oxygen Delivery Method Room Air Room Air Room Air 02/18/25 23:40 02/19/25 00:00 02/19/25 01:09 Temperature 99 F Temperature Source Oral Pulse Rate 74 67 Respiratory Rate 18 16 Respiratory Effort Short of Breath Respiratory Pattern Normal Blood Pressure 121/54 H Blood Pressure Mean 76 Pulse Ox 96 Oxygen Delivery Method Room Air 02/19/25 02:05 02/19/25 03:18 Temperature 98.2 F Temperature Source Pulse Rate 74 76 Respiratory Rate 18 18 Respiratory Effort Respiratory Pattern Blood Pressure 140/64 H 131/75 H Blood Pressure Mean 89 93 Pulse Ox 98 96 Oxygen Delivery Method Room Air Positive well nourished and well developed General Appearance ED: well developed; Negative for pallor HEENT HEENT Narrative: Normocephalic atraumatic No tongue or lip swelling no oral lesions no airway edema or compromise Eyes PERRL and EOMs intact bilaterally General Eye ED: Negative for scleral icterus Neck supple and no JVD Neck Narrative: No nuchal rigidity or meningeal signs Chest Wall palpation of chest normal Resp normal respiratory effort Resp Narrative: Breath sounds are diminished throughout with faint rhonchi noted in the bilateral lower lobes however no nasal flaring retractions tachypnea or accessory muscle use Cardio regular rate and regular rhythm Rate: other Other Details: Radial and carotid pulses are equal and symmetric GI normal to inspection, nondistended, normoactive bowel sounds, non-tender, non-distended and no masses GI Narrative: Abdomen is soft nontender nondistended with normal active bowel sounds. No voluntary guarding or rigidity or pulsatile mass. No fluid wave noted. No peritoneal signs. Auscultation: normoactive bowel sounds Palpation: soft Extremity Extremity Narrative: +1-2 pitting edema to the bilateral lower extremities that is equal and symmetric and chronic per patient Negative Homans' sign bilaterally Neuro oriented x3, CN's II-XII intact bilaterally and no sensory deficits noted Sensorium / Orientation: alert Motor Exam: strength 5/5 throughout Psych mental status grossly normal Skin no rashes or lesions noted and no wounds General Skin Exam: Negative for jaundice or pallor MDM MDM MDM Narrative Medical decision making narrative: Patient arrived to the ER hypertensive but otherwise with stable vitals. She reported upper abdominal discomfort with nausea and shortness of breath after taking Macrobid this evening. Symptoms could be related to adverse effects of Macrobid as nausea and abdominal discomfort are common side effects. However based on her past medical history she does have risk factor for potential cardiac event/ACS. Patient could also have pneumonia with her reported shortness of breath and cough or atypical presentation for acute pancreatitis. Secondary to his basic labs were obtained with chest x-ray. White count is normal going against systemic infection there is no left shift. Lipase is normal going against pancreatitis. Liver enzymes are slightly elevated but she has had her gallbladder previously removed and without jaundice or scleral icterus and only slight elevation to the bilirubin concern for a impacted common bile duct stone is extremely low and the levels are most likely slightly elevated due to [place]. Therefore do not feel need for an abdominal CT at this time. Patient's chest x-ray showed changes consistent with bronchitis without pneumonia. This does correlate with her physical exam and history of cough. However she is not in respiratory distress or requiring supplemental oxygen and no therefore there is no need for further workup. Also has most bronchitis infections are viral there is no need for further antibiotic. The patient's urine sample showed +2 bacteria but there was no white cells and no report of leukocyte esterase or nitrates. Therefore the bacteria is most likely normal edda and I would recommend that the patient stop the Macrobid as this was most likely cause of tonight symptoms. On reevaluation the patient is resting comfortably. Her workup reveals no signs of acute pneumonia or hypoxia or urosepsis or BILL, there is no signs of acute coronary syndrome. Therefore I feel there is no need for further intervention in the hospital and she is otherwise safe for discharge History & Record Review Discussion w/independent historian: Patient and Significant other Lab Data Attestation: I reviewed the patient's lab results. Labs: Laboratory Results - last 24 hr 02/18/25 02/19/25 02/19/25 23:52 01:59 02:04 WBC 8.8 RBC 4.62 Hgb 12.2 Hct 37.3 MCV 80.7 L MCH 26.4 L MCHC 32.7 RDW Std Deviation 44.6 H RDW Coeff of Clarence 15.2 H Plt Count 346 MPV 10.2 Immature Gran % (Auto) 0.200 Neut % (Auto) 77.5 H Lymph % (Auto) 9.2 L [place] % (Auto) 11.0 H Eos % (Auto) 1.6 Baso % (Auto) 0.5 Absolute Neuts (auto) 6.8 Absolute Lymphs (auto) 0.81 L Nucleated RBC % 0 Sodium 129 L Potassium 4.2 Chloride 92 L Carbon Dioxide 24.0 Anion Gap 13 BUN 10 Creatinine 0.98 Estim Creat Clear Calc 45.99 L Est GFR (MDRD) Non-Af 59 L BUN/Creatinine Ratio 9.8 L Glucose 169 H Calcium 9.3 Total Bilirubin 1.65 H Direct Bilirubin 0.68 H AST 58 H ALT 47 H Alkaline Phosphatase 118 H Troponin T High Sens 20 H Troponin T Hi Sens 2 Hr 13 NT pro BNP II 151 Total Protein 5.8 L Albumin 4.0 Globulin 1.8 L Lipase 27 Urine Color Yellow Urine Clarity Clear Urine pH 6.0 Ur Specific Hubbard 1.015 Urine Protein 30 H Urine Glucose (UA) Normal Urine Ketones Negative Urine Occult Blood Negative Urine Nitrite Negative Urine Bilirubin Negative Urine Urobilinogen Normal Ur Leukocyte Esterase Negative Urine RBC 0 SEEN Urine WBC 0-5 SEEN Ur Squamous Epith Cells 0-5 SEEN Ur Transition Epith Cell 0-5 SEEN Urine Bacteria 2+ Urine Mucus 0 SEEN Radiography Diagnostic Testing: Clinical Impression(s) from Imaging Studies Chest X-Ray 02/19/25 01:00 IMPRESSION: Poor inspiratory effort. Exaggerated hilar bronchovascular markings suggesting mild congestion. Minimal bilateral perihilar bronchial wall thickening suggesting bronchitis. New as compared to the. Follow-up is advised Reading Location: [place] [id number] Chest x-ray as interpreted by the emergency medicine physician reveals poor inspiration with mild inflammatory changes consistent with bronchitis but no acute infiltrate or pneumothorax Discharge Plan Triage Chief Complaint: General Illness ED Provider: Luis Weathers Dx/Rx/DC Orders Clinical Impression: Bronchitis, Essential hypertension, Type 2 diabetes mellitus, Hypothyroidism Instructions: Acute Bronchitis Prescriptions: No Action (DME) lancets [Accu-Chek Multiclix Lancet] Misc See Rx Instructions .ROUTE .MEDSUPPLY Qty: 100 Rx Instructions: As directed (DME) handicap placard See Rx Instructions .Route .MEDSUPPLY Qty: 1 0RF Rx Instructions: As directed nitrofurantoin monohyd/m-cryst [Macrobid] 100 mg capsule 100 mg PO Q12H 5 Days Qty: 10 0RF Rx Instructions: must administer with a meal/food geriatric multivitamin-min Tablet 1 tab PO .QOD omeprazole 20 mg capsule,delayed release(DR/EC) 20 mg PO DAILY (DME) blood-glucose meter Misc See Rx Instructions .ROUTE .MEDSUPPLY Qty: 1 0RF Rx Instructions: As directed (DME) lancets [Accu-Chek Softclix Lancets] Misc See Rx Instructions .ROUTE .MEDSUPPLY Qty: 100 3RF Rx Instructions: As directed use to test blood sugar twice daily and PRN alcohol swabs Pads, Medicated 1 pad topical BID Qty: 100 1RF Rx Instructions: BID AND PRN (DME) Accu-Chek Guide test strips Strip See Rx Instructions .Route Qty: 100 6RF Rx Instructions: As directed potassium chloride 8 mEq capsule, extended release 8 meq PO BID Qty: 180 3RF (DME) accu-check avivia control solutions See Rx Instructions .Route .MEDSUPPLY Qty: 1 2RF Rx Instructions: as directed amlodipine 10 mg tablet 10 mg PO DAILY Qty: 90 3RF atorvastatin 10 mg tablet 10 mg PO QHS Qty: 90 3RF ergocalciferol (vitamin D2) 1,250 mcg (50,000 unit) capsule 1,250 mcg PO QWEEK Qty: 14 3RF irbesartan-hydrochlorothiazide [Avalide] 300-12.5 mg tablet 1 tab PO DAILY Qty: 90 3RF levothyroxine 75 mcg tablet 75 mcg PO DAILY Qty: 90 3RF metoprolol tartrate 25 mg tablet 25 mg PO BID Qty: 180 3RF omeprazole 20 mg tablet,delayed release (DR/EC) 20 mg PO QDAY Qty: 60 1RF albuterol sulfate 90 mcg/actuation HFA aerosol inhaler 2 inh inhalation Q6H PRN (Reason: bronchospasm) Qty: 8.5 5RF fluticasone furoate 100 mcg/actuation blister with device 1 inh inhalation Q24H Qty: 90 1RF metformin 500 mg tablet See Rx Instructions PO BID Qty: 270 3RF Rx Instructions: Take 500 mg (1 tab) each morning and 1000 mg (2 tabs) at suppertime. Primary Care Provider: Shoshana Condon Referrals: Shoshana Condon MD [Primary Care Provider] - Activity Restrictions/Additional Instructions: Please stop taking the Macrobid/nitrofurantoin as your urine sample today does not correlate with an acute urinary tract infection. Your x-ray and exam are consistent with bronchitis but this is typically a viral infection and will resolve spontaneously. Your heart exam/workup was negative for acute heart damage and your symptoms of abdominal discomfort and nausea were most likely related to adverse effects from the antibiotic. Follow-up with your family doctor for repeat evaluation and return to the ER should you have any further concerns Print Language: [place] Disposition Disposition: Home, Self Care Discharge Date/Time: 02/19/25 03:28
[2025-02-19 03:18] VITALS: BP 131/75; PULSE 76; RESP 18; TEMP 36.8; O2SAT 96
== END 2025-02-19 03:28 | disposition home or self-care (01) ==
PROVIDERS: Emergency Provider Emergency Medicine; PCP Internal Medicine; Visit Provider Emergency Medicine
DX: J20.9 Acute bronchitis, unspecified (principal); E11.9 Type 2 diabetes mellitus without complications; R06.02 Shortness of breath; I10 Essential (primary) hypertension; E03.9 Hypothyroidism, unspecified; K21.9 Gastro-esophageal reflux disease without esophagitis; E66.9 Obesity, unspecified; K75.81 Nonalcoholic steatohepatitis (NASH); M85.80 Other specified disorders of bone density and structure, unspecified site; J45.909 Unspecified asthma, uncomplicated; Z79.51 Long term (current) use of inhaled steroids; Z79.84 Long term (current) use of oral hypoglycemic drugs; Z90.49 Acquired absence of other specified parts of digestive tract; Z87.19 Personal history of other diseases of the digestive system; Z79.899 Other long term (current) drug therapy; Z79.890 Hormone replacement therapy
CPT/HCPCS: 71046; 80048; 80076; 81001; 83690; 83880; 84484; 85025; 93005; 94640; 99283; A4216

== ENCOUNTER → 2025-03-14 | Outpatient (CLI) | payer MEDICARE, SELFPAY ==
[2025-03-14 11:31] LABS: Mucous, Urine 0 SEEN /hpf (<or=2+); Red Blood Cells-Urine 0 SEEN /hpf (0-5); Squamous Epithelial Cells - UA 0 SEEN /hpf (5-10)
[2025-03-14 13:01] LABS: Color, Urine Yellow (Yellow); Glucose, Dipstick Normal (Normal); Ketone-Dipstick Negative (Negative); Leukocyte Esterase-Dipstick Negative /ul (Negative); Nitrite-Dipstick Negative (Negative); Occult Blood-Urine Negative /ul (Negative); Protein-Dipstick 30 mg/dl (Negative); Specific Gravity, Urine 1.010 (1.002-1.030); Urine Bilirubin Dipstick Negative (Negative)
== END | disposition home or self-care (01) ==
PROVIDERS: PCP Internal Medicine; Referring Provider Internal Medicine; Visit Provider Internal Medicine
DX: N39.0 Urinary tract infection, site not specified (principal)
CPT/HCPCS: 81001; 87077; 87086; 87088

== ENCOUNTER 2025-03-15 16:15 | Emergency (ER) | payer MEDICARE, SELFPAY ==
[2025-03-15] VITALS (8 sets, daily range): BP systolic 118–156; BP diastolic 67–114; PULSE 80–110; RESP 16–20; TEMP 36.8–37.9; O2SAT 93–98; BMI 39.6
--- NOTE | 2025-03-15 16:47 | CT_ITS ---
PROCEDURE: SOFT TISSUE NECK WITH CONTRAST 03/15/2025 REASON FOR EXAM: SUBMANDIBULAR FULLNESS, PAIN TECHNIQUE: CT soft tissue neck with IV contrast. Multiplanar 2D reconstructions were performed. CONTRAST: Isovue 370 VOLUME: 100 mL One or more dose reduction techniques were used (e.g., Automated exposure control, adjustment of the mA and/or kV according to patient size, use of iterative reconstruction technique). RADIATION DOSE SUMMARY: CTDlvol: 17.58 mGy DLP: 562.2 mGycm COMPARISON: None. FINDINGS: The thyroid gland is enlarged and heterogeneous, with large ill-defined hypodense lobulated lesion extending across the anterior thyroid isthmus and anterior left lobe, with macrocalcification. There is associated surrounding regional fat infiltration which is indistinct from the overlying strap muscles, with infiltration of the superior mediastinum anterior paratracheal fat. Superiorly there is mild subcutaneous fatty infiltration in the anterior neck. No drainable fluid collection. Innumerable regional cervical lymph nodes subcentimeter in size, which may be reactive but are indeterminate. The airway is patent and midline without any significant narrowing. Lung apices are clear. Major cervical vascular structures are patent, normal in course and caliber. Normal, symmetric appearance of the bilateral major salivary glands. Absent [place] ocular lenses. There appears to be a small right orbital venous varix posteromedially to the right globe. Visualized osseous structures are intact. Mild multilevel degenerative changes of the spine. No osseous lytic or blastic lesion identified. Well-aerated paranasal sinuses and bilateral mastoid air cells. CT/Soft Tissue Neck WITH Contrast IMPRESSION: Enlarged heterogeneous thyroid gland with a prominent lobulated hypodense mass lesion extending across the anterior thyroid isthmus, with ill-defined margins and surrounding fat infiltration at the anter ior aspect of the neck, and numerous regional small lymph nodes. Findings are suspicious for an infiltrative/locally aggress karin thyroid neoplasm, or potentially superinfected thyroid lesion. Reading Location: [facility]
--- NOTE | 2025-03-15 16:49 | EX.ED.DYSGE1 ---
HPI History of Present Illness Chief Complaint: Complaint Detail of Chief Complaint: Dysuria Informant: patient Narrative Narrative: Patient presents to the emergency department with concern for urinary tract infection. Patient states that she was on nitrofurantoin a month ago and then 2-1/2 days ago was started on Cipro which she started having dysuria again. She has had 3 UTIs this year. Since taking the Cipro she describes some fullness in her throat. She has had a cough. She denies fever. She states that she cannot stop shaking since taking the Cipro. She denies any pain in her back. She has had nausea but no vomiting. Patient also has been having some diarrhea since yesterday. [facility] Medical History (Updated 03/15/25 @ 20:[address] Seamus Zhou, ) Family history of dementia Memory deficit Cancer On home oxygen therapy Hypertension Abdominal discomfort Occult blood positive stool Back pain Black stool Acute URI Urinary tract infection Need for influenza vaccination Syncope Wears glasses Post-menopausal Thyroid disease Diabetes Walker as ambulation aid Ambulates with cane Injury of head and neck Gastric reflux Non-smoker History of edema History of echocardiogram History of stress test Bronchitis Shortness of breath on exertion Obesity History of COVID-19 Incontinence Difficulty balancing when standing Knee pain Diarrhea Hemorrhoids COVID-19 Pancreatitis Asthma Arthritis Seasonal allergies Osteopenia Essential hypertension Ascending cholangitis Gallstone pancreatitis Home Medications ?Medication ?Instructions ?Recorded ?Last Taken ?Type lancets (Accu-Chek Multiclix #100 ea 07/02/20 Unknown History Lancet) geriatric multivitamin-min 1 tab PO .QOD 01/28/22 10/08/24 History handicap placard #1 ea 07/06/23 Unknown Rx blood-glucose meter #1 ea 07/11/23 Unknown Rx lancets (Accu-Chek Softclix #100 ea 07/11/23 Unknown Rx Lancets) blood sugar diagnostic (Accu-Chek #100 ea 10/31/23 Unknown Rx Guide test strips) accu-check avivia control solutions #1 BOTTLE 07/23/24 Unknown Rx amlodipine 10 mg tablet 10 mg PO DAILY BLOOD PRESSURE #90 07/23/24 10/09/24 Rx tabs atorvastatin 10 mg tablet 10 mg PO QHS CHOLESTEROL #90 tabs 07/23/24 10/08/24 Rx ergocalciferol (vitamin D2) 1,250 1,250 mcg PO QWEEK #14 caps 07/23/24 10/08/24 Rx mcg (50,000 unit) capsule irbesartan 300 1 tab PO DAILY BP #90 tabs 07/23/24 10/08/24 Rx mg-hydrochlorothiazide 12.5 mg tablet (Avalide) levothyroxine 75 mcg tablet 75 mcg PO DAILY THYROID #90 tabs 07/23/24 10/09/24 Rx metoprolol tartrate 25 mg tablet 25 mg PO BID BLOOD PRESSURE #180 07/23/24 10/09/24 Rx tabs albuterol sulfate 90 mcg/actuation 2 inh inhalation Q6H PRN 10/25/24 Unknown Rx aerosol inhaler bronchospasm #8.5 grams fluticasone furoate 100 1 inh inhalation Q24H #90 ea 10/29/24 Unknown Rx mcg/actuation blister powder for inhalation metformin 500 mg tablet See Rx Instructions PO BID 01/31/25 Unknown Rx DIABETES #270 tabs omeprazole 20 mg capsule,delayed 20 mg PO DAILY 02/18/25 Unknown History release ciprofloxacin HCl 500 mg tablet 500 mg PO BID #14 tabs 03/14/25 Unknown Rx lansoprazole 30 mg capsule,delayed 30 mg PO DAILY 03/15/25 Unknown History release Allergy/AdvReac Type Severity Reaction Status Date / Time Penicillins Allergy Rash Verified 03/15/25 16:21 Sulfa (Sulfonamide Allergy Rash Verified 03/15/25 16:21 Antibiotics) calcium AdvReac Constipatio Verified 03/15/25 16:21 n sertraline AdvReac Constipatio Verified 03/15/25 16:21 n Family History Mother Diabetes Heart disease Arthritis Hypertension Hyperlipemia Father Colon cancer Heart disease Hypertension Hyperlipemia Cancer prostate Myocardial infarction Surgical History Hx laparoscopic cholecystectomy History of ERCP History of colonoscopy Cataracts, bilateral H/O: hysterectomy Cholecystectomy planned Social History (Updated 03/15/25 @ 17:05 by Naila Taveras) household members: spouse housing: house Smoking Status: Never smoker alcohol intake: never substance use type: does not use what type of physical activity do you participate in: other details: yard work additional social history: pt denies vaping, denies marijuana use, denies edibles, denies aspirin, denies ibuprofen use. ROS ROS ED Review of Systems ROS Unobtainable: other Constitutional Constitutional ED: Reports lethargy; Denies chills, fever(s), sweats or weight loss Eyes Eyes: Denies blurry vision, change in vision or diplopia ENT ENT ED: Reports other Details: Anterior throat pain ; Denies rhinorrhea or sore throat Cardiovascular Cardiovascular: Denies chest pain, orthopnea or racing heartbeat Respiratory/Chest Respiratory/Chest: Reports cough and dyspnea; Denies dyspnea on exertion, orthopnea or sputum Gastrointestinal Gastrointestinal: Reports diarrhea, nausea and vomiting; Denies abdominal pain Genitourinary Genitourinary ED: Reports dysuria; Denies hematuria or urinary frequency Musculoskeletal Musculoskeletal: Denies arthralgias, back pain, myalgias or neck pain Integumentary Denies abscess, Abrasions or rash Neurologic Neurologic: Denies headache(s) or weakness Psychiatric Psychiatric: Denies anxiety, depression or suicidal thoughts Endocrine Endocrinology: Denies polydipsia, polyphagia or polyuria Hematologic/Lymphatic Hematologic/Lymphatic: Denies easy bleeding, easy bruising or lymphadenopathy Allergic/Immunologic Allergic/Immunologic ED: Denies mouth swelling, tongue swelling or urticaria EXAM Physical Exam Const Vital Signs: 03/15/25 16:16 03/15/25 17:04 03/15/25 18:00 Temperature 99.3 F H 98.3 F 100 F H Temperature Source Oral Oral Oral Pulse Rate 101 H 80 94 Respiratory Rate 18 18 18 Blood Pressure 142/114 H 120/78 152/82 H Blood Pressure Mean 123 92 105 Pulse Ox 94 98 96 Oxygen Delivery Method Room Air Room Air Room Air 03/15/25 19:00 03/15/25 20:00 03/15/25 21:00 Temperature 99.7 F H 99.8 F H 100.3 F H Temperature Source Oral Oral Oral Pulse Rate 102 H 106 H 110 H Respiratory Rate 16 18 20 H Blood Pressure 141/77 H 156/101 H 119/92 H Blood Pressure Mean 98 119 101 Pulse Ox 95 93 94 Oxygen Delivery Method Room Air Room Air Room Air 03/15/25 22:00 03/15/25 23:00 Temperature 99.8 F H 99.5 F H Temperature Source Oral Oral Pulse Rate 106 H 107 H Respiratory Rate 18 18 Blood Pressure 141/67 H 118/91 H Blood Pressure Mean 91 100 Pulse Ox 97 94 Oxygen Delivery Method Room Air Room Air Positive well nourished and well developed General Appearance ED: well developed and NAD HEENT Reports TM's clear and moist mucous membranes HEENT Narrative: Anterior fullness over the thyroid and into the soft tissues. No significant cellulitic changes. No fluctuance or soft tissue gas noted. Pharynx not erythematous. Uvula midline without trismus. Floor the mouth is soft and nontender normocephalic and atraumatic; Negative for trauma or tenderness Tympanic Membrane ED: Yes TM's clear Eyes PERRL and EOMs intact bilaterally General Eye ED: Negative for pale conjunctiva or scleral icterus Neck no lymphadenopathy, supple and no JVD General: Negative for tenderness Chest Wall inspection of chest normal and palpation of chest normal Chest: Negative for tenderness Resp normal respiratory effort and clear to auscultation bilaterally Effort and Inspection: Negative for respiratory distress or pain with movement Auscultation: Negative for rhonchi, wheezes or diminished lung sounds Cardio regular rate, regular rhythm, S1 normal heart sound, S2 normal heart sound and no murmurs Peripheral Pulses: pulses 2+ throughout GI normal to inspection, nondistended, normoactive bowel sounds, soft to palpation, non-tender, non-distended and no masses Back/Spine no CVA tenderness and no thoracic nor lumbar tenderness Extremity normal to inspection General Extremety ED: Negative for edema General Extremity: Negative for edema Neuro oriented x3, CN's II-XII intact bilaterally, no sensory deficits noted and gait normal Sensorium / Orientation: awake, alert, oriented to person, oriented to place and oriented to time Motor Exam: strength 5/5 throughout and strength abnormal Psych mental status grossly normal Skin no rashes or lesions noted and no wounds MDM MDM MDM Narrative Medical decision making narrative: Patient presents with fullness in her anterior neck and discomfort. Also concern for UTI. Currently on Cipro. IV line established. CBC with inflammation and elevated white count of 15.5 with hemoglobin 11.7 platelet count 317. Chemistries shows a sodium of 126 with potassium 3.1 and chloride of 89. BUN was 10 and creatinine 0.75. Urinalysis unremarkable. CT of the neck with IV contrast obtained showed enlarged heterogenous thyroid gland with prominent lobulated hypodense mass lesion extending across the anterior thyroid isthmus with ill-defined margins and surrounding fat infiltration at the anterior aspect of the neck and numerous regional small lymph nodes. Findings suspicious for infiltrative locally aggressive thyroid neoplasm or potentially superinfected thyroid lesion. Patient started on clindamycin IV as she has penicillin allergy as well as sulfa allergy. Discussed results with patient. We do not have ENT available. Also discussed case with our general surgeon on-call Dr. Rivera who recommended transfer to tertiary care center for definitive care. Patient would like to go to the [facility]. Discussed case with Dr. Finley at [facility] who accepted transfer of patient to their facility. It is unclear when a bed will be available. Care of patient turned over to night physician awaiting transfer to [facility]. Lab Data Attestation: I reviewed the patient's lab results. Labs: Laboratory Results - last 24 hr 03/15/25 03/15/25 16:59 17:19 WBC 15.5 H RBC 4.26 Hgb 11.7 L Hct 33.0 L MCV 77.5 L MCH 27.5 MCHC 35.5 RDW Std Deviation 42.2 RDW Coeff of Clarence 15.1 H Plt Count 317 MPV 9.4 Immature Gran % (Auto) 0.600 Neut % (Auto) 82.2 H Lymph % (Auto) 8.1 L [place] % (Auto) 8.9 Eos % (Auto) 0.1 Baso % (Auto) 0.1 Absolute Neuts (auto) 12.7 H Absolute Lymphs (auto) 1.26 Nucleated RBC % 0 Sodium 126 L Potassium 3.1 L Chloride 89 L Carbon Dioxide 23.1 Anion Gap 14 BUN 10 Creatinine 0.75 Estim Creat Clear Calc 57.51 Est GFR (MDRD) Non-Af 82 BUN/Creatinine Ratio 13.0 Glucose 154 H Lactic Acid 1.5 Calcium 9.1 TSH 2.390 Urine Color Yellow Urine Clarity Clear Urine pH 6.5 Ur Specific [place] 1.010 Urine Protein 15 H Urine Glucose (UA) Normal Urine Ketones 5 H Urine Occult Blood 25 H Urine Nitrite Negative Urine Bilirubin Negative Urine Urobilinogen Normal Ur Leukocyte Esterase Negative Urine RBC 0-5 SEEN Urine WBC 0-5 SEEN Ur Squamous Epith Cells 0 SEEN Urine Bacteria 0 SEEN Urine Mucus 0 SEEN Radiography Diagnostic Testing: Clinical Impression(s) from Imaging Studies Soft Tissue Neck CT 03/15/25 16:47 IMPRESSION: Enlarged heterogeneous thyroid gland with a prominent lobulated hypodense mass lesion extending across the anterior thyroid isthmus, with ill-defined margins and surrounding fat infiltration at the anterior aspect of the neck, and numerous regional small lymph nodes. Findings are suspicious for an infiltrative/locally aggressive thyroid neoplasm, or potentially superinfected thyroid lesion. Reading Location: [facility] Chest X-Ray 03/15/25 18:20 IMPRESSION: Cardiomegaly with suspected mild vascular congestion. Reading Location: [facility] Discharge Plan Triage Chief Complaint: Complaint ED Provider: Seamus Zhou Dx/Rx/DC Orders Clinical Impression: Thyroid mass, Acute hyponatremia, Acute hypokalemia Prescriptions: No Action (DME) lancets [Accu-Chek Multiclix Lancet] Mis See Rx Instructions .ROUTE .MEDSUPPLY Qty: 100 Rx Instructions: As directed (DME) handicap placard See Rx Instructions .Route .MEDSUPPLY Qty: 1 0RF Rx Instructions: As directed geriatric multivitamin-min Tablet 1 tab PO .QOD omeprazole 20 mg capsule,delayed release(DR/EC) 20 mg PO DAILY lansoprazole 30 mg capsule,delayed release(DR/EC) 30 mg PO DAILY (DME) blood-glucose meter Misc See Rx Instructions .ROUTE .MEDSUPPLY Qty: 1 0RF Rx Instructions: As directed (DME) lancets [Accu-Chek Softclix Lancets] Misc See Rx Instructions .ROUTE .MEDSUPPLY Qty: 100 3RF Rx Instructions: As directed use to test blood sugar twice daily and PRN (DME) Accu-Chek Guide test strips Strip See Rx Instructions .Route Qty: 100 6RF Rx Instructions: As directed (DME) accu-check avivia control solutions See Rx Instructions .Route .MEDSUPPLY Qty: 1 2RF Rx Instructions: as directed amlodipine 10 mg tablet 10 mg PO DAILY Qty: 90 3RF atorvastatin 10 mg tablet 10 mg PO QHS Qty: 90 3RF ergocalciferol (vitamin D2) 1,250 mcg (50,000 unit) capsule 1,250 mcg PO QWEEK Qty: 14 3RF irbesartan-hydrochlorothiazide [Avalide] 300-12.5 mg tablet 1 tab PO DAILY Qty: 90 3RF levothyroxine 75 mcg tablet 75 mcg PO DAILY Qty: 90 3RF metoprolol tartrate 25 mg tablet 25 mg PO BID Qty: 180 3RF albuterol sulfate 90 mcg/actuation HFA aerosol inhaler 2 inh inhalation Q6H PRN (Reason: bronchospasm) Qty: 8.5 5RF fluticasone furoate 100 mcg/actuation blister with device 1 inh inhalation Q24H Qty: 90 1RF metformin 500 mg tablet See Rx Instructions PO BID Qty: 270 3RF Rx Instructions: Take 500 mg (1 tab) each morning and 1000 mg (2 tabs) at suppertime. ciprofloxacin HCl 500 mg tablet 500 mg PO BID Qty: 14 0RF Primary Care Provider: Shoshana Condon Referrals: Shoshana Condon MD [Primary Care Provider] - Print Language: Lao Disposition Disposition: DC/Tx to Another Type of HCF
[2025-03-15] MEDS: 0.9% Normal Saline (1000mL) 1,000 ML 150 ML IV (17:16)
[2025-03-15 17:24] LABS: Hematocrit 33.0 % (37-47); Hemoglobin 11.7 g/dL (12.0-15.0); Immature Granulocytes Count 0.090 X10^3/uL (0.0-0.0); Mean Corp Hgb Conc 35.5 g/dL (32-36); Mean Corpuscular Volume 77.5 fL (81-99); Mean Platelet Vol. 9.4 fl (6.2-12.0); NRBC Flagged by Analyzer 0 % (0-5); Platelet Count 317 K/mm3 (150-450); RBC Distribution Width CV 15.1 % (11.6-14.6); RBC Distribution Width SD 42.2 fl (35.1-43.9); Red Blood Count 4.26 M/mm3 (4.2-5.4); White Blood Count 15.5 K/mm3 (4.4-11.0)
[2025-03-15 17:26] LABS: Mucous, Urine 0 SEEN /hpf (<or=2+); Squamous Epithelial Cells - UA 0 SEEN /hpf (5-10)
[2025-03-15 17:37] LABS: Color, Urine Yellow (Yellow); Glucose, Dipstick Normal (Normal); Ketone-Dipstick 5 mg/dl (Negative); Leukocyte Esterase-Dipstick Negative /ul (Negative); Nitrite-Dipstick Negative (Negative); Occult Blood-Urine 25 /ul (Negative); Protein-Dipstick 15 mg/dl (Negative); Specific Gravity, Urine 1.010 (1.002-1.030); Urine Bilirubin Dipstick Negative (Negative)
[2025-03-15 17:44] LABS: Red Blood Cells-Urine 0-5 SEEN /hpf (0-5)
[2025-03-15 17:58] LABS: Anion Gap 14 (5-15); BUN 10 mg/dL (4-19); BUN/Creat Ratio 13.0 RATIO (10-20); Calcium,Total 9.1 mg/dL (7.6-11.0); Carbon Dioxide 23.1 mmol/L (21.0-32.0); Chloride 89 mmol/L (98-108); Estimated Creatinine Clearance 57.51 ml/min (50-250); Glucose 154 mg/dL (70-99); Potassium 3.1 mmol/L (3.3-5.1)
--- NOTE | 2025-03-15 18:20 | RAD_ITS ---
PROCEDURE: CHEST 1 VIEW (PORTABLE) 03/15/2025 REASON FOR EXAM: COUGH TECHNIQUE: Frontal view of the chest. COMPARISON: Chest PA and Lateral - 19-Feb-2025 1:03 AM FINDINGS: LUNGS AND PLEURA: Mildly diminished lung volumes bilaterally. No focal airspace consolidation. No pleural effusion or pneumothorax. HEART AND MEDIASTINUM: The cardiac silhouette is mildly enlarged. The mediastinal contour is normal. PULMONARY VESSELS: Mild prominence of the central pulmonary vasculature. BONES: No acute osseous abnormality. Moderate thoracic dextroscoliosis. RAD/Chest 1 View (Portable) IMPRESSION: Cardiomegaly with suspected mild vascular congestion. Reading Location: [id number]
[2025-03-15] MEDS: Clindamycin 900 MG/50 ML BAG 75 MG IV (19:35)
[2025-03-15] MEDS: Potassium Chloride Oral Tablet 20 MEQ 40 MEQ PO (20:08)
[2025-03-16] VITALS (12 sets, daily range): BP systolic 112–189; BP diastolic 47–97; PULSE 82–99; RESP 16–20; TEMP 36.9–37.3; O2SAT 93–100
[2025-03-16] MEDS: 0.9% Normal Saline (1000mL) 1,000 ML 150 ML IV ×3 (00:27→14:58)
[2025-03-16] MEDS: Clindamycin 900 MG/50 ML BAG 75 MG IV ×2 (06:15→14:56)
--- NOTE | 2025-03-16 09:35 | ED.RN ---
CALLED [facility] WAITING ON DISCHARGES
== END 2025-03-16 16:00 | disposition other institution (70) ==
PROVIDERS: Emergency Provider Emergency Medicine; PCP Internal Medicine; Visit Provider Emergency Medicine
DX: R30.0 Dysuria (principal); E11.9 Type 2 diabetes mellitus without complications; E87.1 Hypo-osmolality and hyponatremia; E87.6 Hypokalemia; Z90.710 Acquired absence of both cervix and uterus; E04.1 Nontoxic single thyroid nodule; I10 Essential (primary) hypertension; Z79.899 Other long term (current) drug therapy; Z79.84 Long term (current) use of oral hypoglycemic drugs; K21.9 Gastro-esophageal reflux disease without esophagitis; Z90.49 Acquired absence of other specified parts of digestive tract; Z98.41 Cataract extraction status, right eye; Z98.42 Cataract extraction status, left eye
CPT/HCPCS: 70491; 71045; 80048; 81001; 83605; 84443; 85025; 87040; 87086; 87631; 96360; 96361; 96365; 99283; Q9967; A4216

== ENCOUNTER → 2025-07-01 | Outpatient (CLI) | payer MEDICARE, SELFPAY ==
--- OUTSIDE RECORDS SUMMARY | 2025-07-01 07:29 | XMS RPT_ITS | CCD ---
Author Organization [facility]iniSym[facility] Care Team Providers Care Cruller Maker Machine Name Role Phone MERLIN AMIN E Unavailable Unavailable BUENOJENISEI (PRODUCE CLERK) Unavailable Unavailable MERLIN AMIN Unavailable Unavailable IMCA Unavailable Unavailable TALAMPAS, CLARISA Unavailable Unavailable ELOISA, MERLIN Unavailable Unavailable ELOISA, MERLIN Unavailable Unavailable TALAMPAS, CLARISA Unavailable Unavailable EDWIN, SANAM E Attending Unavailable EDWIN, SANAM E Primary Care Unavailable EDWIN, SANAM E Admitting Unavailable EDWIN, SANAM E Attending Unavailable EDWIN, SANAM E Primary Care Unavailable EDWIN, SANAM E Admitting Unavailable Dr. Kaitlyn Condon Primary Care Provider Dr. Kaitlyn Condon Attending Provider 1([facility]) Dr. Kaitlyn Condon Referring Provider 1([facility]) Dr. Trevon Vee Attending Provider 1([facility] )[phone] Dr. Kishore Morrow Attending Provider 1([facility])[phone] Dr. Kaitlyn Condon Other Provider 1([facility])[phone] Richard Prasad Attending Provider 1([facility])[phone] Trevon Vee Other Provider 1([facility])[phone] Dr. Kaitlyn Condon Primary Care Provider Dr. Kaitlyn Condon Attending Provider 1([facility]) Dr. Kaitlyn Condon Referring Provider 1([facility]) Dr. Kaitlyn Condon Primary Care Provider Dr. Kaitlyn Condon Attending Provider 1([facility]) Dr. Kaitlyn Condon Primary Care Provider Dr. Kaitlyn Condon Attending Provider Roseanna CARNES, Dr. Anna Primary Care Provider Roseanna CARNES, Dr. Anna Referring Provider Nanda CARNES, Dr. Lester Attending Provider [phone] Nanda CARNES, Dr. Lester Other Provider Roseanna CARNES, Dr. Anna Attending Provider Roseanna CARNES, Dr. Anna Primary Care Provider Roseanna CARNES, Dr. Anna Referring Provider Nanda CARNES, Dr. Lester Attending Provider [phone] Radha CLAIMS AGENT RIGHT OF WAY-C, Miriam Attending Provider Jasiel QUIROZ, Dr. Smith Emergency Provider Andjerry QUIROZ, Dr. Smith Attending Provider Unganshul QUIROZ, Dr. Way Emergency Provider Roseanna CARNES, Kaitlyn Primary Care Provider Roseanna CARNES, Dr. Anna Primary Care Physician [phone] Roseanna CARNES, Dr. Anna Attending Physician Roseanna CARNES, Dr. Anna Referring Provider Radha CLAIMS AGENT RIGHT OF WAY-C, Miriam Attending Physician [phone] AndDr. Luis edwards DO Attending Physician Dr. Luis Weathers DO Emergency Department Physic jammie Unganshul QUIROZ, Dr. Way Attending Physician Abelardo QUIROZ, Dr. Way Emergency Department Physici an Pierre Haley Attending Unavailable Roseanna, Kaitlyn Primary Care Unavailable Roseanna, Kaitlyn Primary Care Unavailable Trevon Vee Attending Unavailable Roseanna, Kaitlyn Referring Unavailable Roseanna, Kaitlyn Attending Unavailable Roseanna, Kaitlyn Referring Unavailable Roseanna, Kaitlyn Primary Care Unavailable Roseanna, Kaitlyn Attending Unavailable Roseanna, Kaitlyn Referring Unavailable Roseanna, Kaitlyn Primary Care Unavailable Roseanna, Kaitlyn Primary Care Unavailable Roseanna, Kaitlyn Attending Unavailable Roseanna, Kaitlyn Referring Unavailable Roseanna, Kaitlyn Primary Care Unavailable Luis Weathers Attending Unavailable Roseanna, Kaitlyn Primary Care Unavailable Roseanna, Kaitlyn Referring Unavailable Roseanna, Kaitlyn Attending Unavailable Roseanna, Kaitlyn Primary Care Unavailable Miriam Garcia Attending Unavailable Roseanna, Kaitlyn Primary Care Unavailable Trevon Vee Attending Unavailable Roseanna, Kaitlyn Referring Unavailable Roseanna, Kaitlyn Attending Unavailable Roseanna, Kaitlyn Primary Care Unavailable Roseanna, Kaitlyn Primary Care Unavailable Roseanna, Kaitlyn Referring Unavailable Roseanna, Kaitlyn Attending Unavailable Roseanna, Kaitlyn Primary Care Unavailable Ungur, Remus Attending Unavailable Roseanna, Kaitlyn Attending Unavailable Roseanna, Kaitlyn Primary Care Unavailable Roseanna, Kaitlyn Attending Unavailable Roseanna, Kaitlyn Primary Care Unavailable Roseanna, Kaitlyn Referring Unavailable NURSE, BIM Attending Unavailable Roseanna, Kaitlyn Primary Care Unavailable Roseanna, Kaitlyn Referring Unavailable Roseanna, Kaitlyn Primary Care Unavailable Trevon Vee Attending Unavailable Roseanna, Kaitlyn Primary Care Unavailable Roseanna, Kaitlyn Attending Unavailable Roseanna, Kaitlyn Attending Unavailable Roseanna, Kaitlyn Primary Care Unavailable Roseanna, Kaitlyn Referring Unavailable Roseanna, Kaitlyn Primary Care Unavailable Trevon Vee Attending Unavailable Trevon Vee Consulting Unavailable Roseanna, Kaitlyn Primary Care Unavailable Roseanna, Kaitlyn Referring Unavailable Miriam Garcia Attending Unavailable Roseanna, Kaitlyn Primary Care Unavailable Roseanna, Kaitlyn Referring Unavailable Roseanna, Kaitlyn Attending Unavailable ARTHUR LUND Attending Unavailable SELF Referring Unavailable ROSEANNA, KAITLYN M Primary Care Unavailable AYDIN DAWSON Admitting Unavailable UNGANSHUL, REMUS A Referring Unavailable AYDIN DAWSON Attending Unavailable ROSEANNA, KAITLYN M Primary Care Unavailable AYDIN DAWSON Referring Unavailable ROSEANNA, KAITLYN M Primary Care Unavailable JONNATHAN MILIAN Attending Unavailable ROSEANNA, KAITLYN M Primary Care Unavailable ARTHUR LUND Referring Unavailable ROSEANNA, KAITLYN M Primary Care Unavailable PROVIDER, UNKNOWN Attending Unavailable PROVIDER, UNKNOWN Admitting Unavailable ROSEANNA, KAITLYN M Primary Care Unavailable ARTHUR LUND Referring Unavailable KAITLYN CONDON Primary Care Unavailable KAITLYN CONDON Primary Care Unavailable ROSALINDA, HEMALATHA Referring Unavailable ARTHUR LUND Attending Unavailable KAITLYN CONDON Primary Care Unavailable SELF Referring Unavailable ARTHUR LUND Attending Unavailable ARTHUR LUND Admitting Unavailable KAITLYN CONDON Primary Care Unavailable Allergies Allergy Classification Reported Allergen(s) Allergy Type Date of Onset Reaction(s) Facility (16 sources) calcium citrate; Translations: [CALCIUM CITRATE] Drug Allergy 12-26-19 10 Intolerance, Other: See Comments [facility] Repository (20 sources) Penicillins; Translations: [PENICILLINS] Propensity to adverse reactions to drug (disorder) 05-13-20 05 [facility] Repository (12 sources) pravastatin; Translations: [PRAVASTATIN] Drug Allergy 04-13-20 13 Other: See Comments [facility] Repository (12 sources) sertraline; Translations: [SERTRALINE HCL] Drug Allergy 05-14-20 05 [facility] Repository (20 sources) Sulfonamides (Antibiotic); Translations: [SULFA (SULFONAMIDE ANTIBIOTICS)] Propensity to adverse reactions to drug (disorder) 05-13-20 05 [facility] Repository (17 sources) Sertraline Drug Allergy 12-12-19 22 Drug-induced constipation with proper administration [facility] Comment on above: pt reports constipat ion (13 sources) Calcium Drug Allergy 06-09-20 22 Drug-induced constipation with proper administration [facility] Comment on above: CALCIUM CITRATE-pt r eports constipation (1 source) Calcium Drug Allergy 05-14-20 [facility] Repository (1 source) Sertraline Drug Allergy 05-14-20 [facility] Repository Medications Current Medications Medication Drug Class(es) Dates Sig (Normalized) Sig (Original) accu-check avivia control solutions (20 sources) Start: 07-23-2024 accu-check avivia control solutions Active 0 .Route .MEDSUPPLY 1 July 23, 2024 11:38am as directed Start: 07-23-2024 accu-check donnie via control solutions Active 0 .Route .MEDSUPPLY July 23, 2024 11:38am as directed Start: 10-17-2023 End: 07-23-2024 accu-check avivia control so lutions Discontinued 0 .Route .MEDSUPPLY 1 2 October 17, 2023 1:12pm July 23, 2024 11:39am as directed Start: 10-17-2023 End: 07-23-2024 accu-check avivia control so lutions Discontinued 0 .Route .MEDSUPPLY 1 October 17, 2023 1:12pm July 23, 2024 11:39am as directed Start: 07-18-2023 End: 10-17-2023 accu-check avivia control so lutions Discontinued 0 .Route .MEDSUPPLY 1 0 July 18, 2023 1:36pm October 17, 2023 1:13pm as directed Start: 07-18-2023 End: 10-17-2023 accu-check avivia control so lutions Discontinued 0 .Route .MEDSUPPLY 1 July 18, 2023 1:36pm October 17, 2023 1:13pm as directed Start: 06-09-2022 End: 07-18-2023 accu-check avivia control so lutions Discontinued 0 .Route .MEDSUPPLY 1 0 June 09, 2022 1:10pm July 18, 2023 1:36pm as directed Start: 06-09-2022 End: 07-18-2023 accu-check avivia control so lutions Discontinued 0 .Route .MEDSUPPLY 1 June 09, 2022 1:10pm July 18, 2023 1:36pm as directed Start: 06-09-2022 accu-check donnie via control solutions Active 0 .Route .MEDSUPPLY June 09, 2022 1:10pm as directed Start: 06-09-2022 accu-check donnie via control solutions Active 0 .Route .MEDSUPPLY June 09, 2022 12:10pm as directed Start: 06-09-2022 End: 06-09-2022 accu-check avivia control so lutions Discontinued 0 .Route .MEDSUPPLY June 09, 2022 12:00am June 09, 2022 1:11pm as directed Start: 06-09-2022 End: 06-09-2022 accu-check avivia control so lutions Discontinued 0 .Route .MEDSUPPLY June 08, 2022 11:00pm June 09, 2022 12:11pm as directed [id number] actuat albuterol 0.09 mg/actuat metered dose inhaler (20 sources) beta2-Adrenergic Agonist Start: 03-27-2025 Albut leticia Sulfate 90 mcg/actuation HFA aerosol inhaler Active 2 NMA INHALATION 4 TIMES DAILY March 27, 2025 11:20am bronchospasm Start: 12-07-2021 Albuterol Sulf ate Active 2 INH INHALATION EVERY 6 HOURS 8.December 07, 2021 8:43am Start: 12-07-2021 End: 12-07-2021 Albuterol Sulfate Discontinu ed 2 INH INHALATION EVERY 6 HOURS December 07, 2021 8:30am December 07, 2021 8:43am Start: 12-07-2021 End: 05-03-2025 Start: 12-07-2021 End: 03-27-2025 Albuterol Sulfate 90 mcg/act uation HFA aerosol inhaler Discontinued 2 NMA INHALATION EVERY 6 HOURS as needed for bronchospasm 8.5 5 October 25, 2024 3:57pm March 27, 2025 11:20am Start: 12-07-2021 End: 10-20-2022 Albuterol Sulfate Discontinu ed 2 INH INHALATION EVERY 6 HOURS 8.5 December 07, 2021 8:43am October 20, 2022 4:21pm Start: 03-19-2020 End: 07-17-2021 Start: 03-19-2020 End: 07-17-2021 Albuterol Sulfate 90 mcg/act uation HFA aerosol inhaler Discontinued 2 NMA INHALATION EVERY 6 HOURS NEEDED as needed for Asthma 8.5 2 March 16, 2021 1:12pm July 17, 2021 12:52pm Start: 03-19-2020 End: 07-17-2021 take 1 puff(s) by inhalation every six hours as needed Albuterol Sulfate Discontinued 2 PUFF INHALATION EVERY 6 HOURS NEEDED 8.5 March 16, 2021 1:12pm July 17, 2021 12:52pm Start: 08-27-2019 take 2 puff(s) by in halation four times daily albuterol HFA (PROVENTIL HFA, VENTOLIN HFA) 90 mcg/actuation inhaler Indications: Moderate persistent asthma without complication (HCC) Inhale 2 Puffs as instructed four times daily. 1 Inhaler 08/27/2019 Active azithromycin 250 mg oral tab let (20 sources) Macrolide Antimicrobial Start: 05-14-2025 Start: 07-22-2021 End: 07-31-2021 Start: 07-17-2020 End: 03-16-2021 Blood Glucose Control, Tosha l (CONTOUR CONTROL SOLUTION, NML) Misc Soln (9 sources) Start: 07-12-2011 Blood Glucose Control, Normal (CONTOUR CONTROL SOLUTION, NML) Misc Soln As intstructed. 1 Each 07/12/2011 Active Blood-Glucose Meter misc (8 sources) Start: 07-11-2023 Blood-Glucose Meter misc Active 0 .ROUTE .MEDSUPPLY 1 0 July 11, 2023 10:35am Type 2 diabetes mellitus without complications As directed Start: 07-11-2023 Blood-Glucose Meter misc Active 0 .ROUTE .MEDSUPPLY 1 July 11, 2023 10:35am As directed cholecalciferol 1.25 mg oral capsule (9 sources) Vitamin D Start: 12-19-2019 take 1 capsule by mouth every week cholecalciferol, Vitamin D3, (VITAMIN D3) 1,250 mcg (50,000 unit) cap capsule Indications: Vitamin D deficiency Take 1 capsule by mouth one time a week. 12 capsule 3 12/19/2019 Active 12 hr dextromethorphan hydrobromide 60 mg / guaiFENesin 1200 mg extended release oral tablet (1 source) Uncompetitive S-lgglwm-A-asparta te Receptor Antagonist, Sigma-1 Agonist Start: 12-07-2021 take 60-1200 mg by mouth every twelve hours Dextromethorphan-Gua ifenesin (Mucinex Dm) 60-1,200 mg tablet extended release 12 hr Active 1 TABLET PO Q12H December 07, 2021 8:32am ergocalciferol 1.25 mg oral capsule (20 sources) Provitamin D2 Compound Start: 07-28-2021 End: 05-03-2025 Start: 06-26-2020 End: 07-17-2021 Ergocalciferol (Vitamin D2) 1,250 mcg (50,000 unit) capsule Discontinued [id number] U PO EVERY WEEK 12 November 11, 2020 11:59am March 16, 2021 1:13pm SUPPLEMENT TUESDAY Start: 03-19-2020 End: 07-17-2021 Start: 03-19-2020 End: 07-17-2021 Ergocalciferol (Vitamin D2) 50,000 UNIT capsule Discontinued [id number] U PO EVERY WEEK March 19, 2020 12:00am June 26, 2020 2:22pm SUPPLEMENT TUESDAY ferrous sulfate 325 mg oral tablet (11 sources) Start: 03-27-2025 Start: 03-20-2025 End: 06-18-2025 take 1 tablet by mouth every other day ferrous sulfate 325 mg (65 mg iron) tablet Take 1 tablet by mouth every other day. 15 tablet 2 03/20/2025 06/18/2025 Active Fluticasone Furoate (20 sources) Corticosteroid Start: 04-04-2025 Start: 03-27-2025 End: 04-04-2025 Start: 01-15-2025 take 2 puff(s) by in halation once daily ARNUITY ELLIPTA 100 mcg/actuation inhaler Inhale 2 puffs as instructed once daily. 01/15/2025 Active Start: 10-29-2024 End: 03-27-2025 Start: 10-29-2024 End: 03-27-2025 Fluticasone Furoate 100 mcg/actuation blister with device Discontinued 1 NMA INHALATION Q24H 90 October 29, 2024 12:00am March 27, 2025 11:20am Start: 12-07-2021 End: 10-29-2024 Start: 12-07-2021 End: 10-29-2024 Fluticasone Propionate (Flov ent Hfa) 110 mcg/actuation HFA aerosol inhaler Discontinued 2 NMA INHALATION TWICE A DAY 07 19October 25, 2024 3:57pm October 29, 2024 1:22pm Start: 12-07-2021 take 1 puff(s) by in halation twice daily Fluticasone Propionate (Flovent Hfa) 110 mcg/actuation HFA aerosol inhaler Active 2 PUFF INHALATION TWICE A DAY December 07, 2021 12:00am Start: 05-01-2020 End: 03-16-2021 Start: 05-01-2020 End: 03-16-2021 Fluticasone Propionate (Flov ent Hfa) 110 mcg/actuation HFA aerosol inhaler Discontinued 2 NMA INHALATION TWICE A DAY May 01, 2020 12:00am March 16, 2021 9:54am Start: 05-01-2020 End: 03-16-2021 take 1 puff(s) by inhalation twice daily Fluticasone Propionate (Flovent Hfa) 110 mcg/actuation HFA aerosol inhaler Discontinued 2 PUFF INHALATION TWICE A DAY May 01, 2020 12:00am March 16, 2021 9:54am Fluticasone Furoate 100 mcg/actuation blister with device (1 source) Start: 03-27-2025 Fluticasone Fu roate 100 mcg/actuation blister with device Active 2 NMA INHALATION Q24H March 27, 2025 11:19am Geriatric Multivitamin-Min (Multivitamin, Mineral Formula) Tablet (5 sources) Start: 01-28-2022 take 1 tablet by mouth once Geriatric Multivitamin-Min (Multivitamin, Mineral Formula) Tablet Active 1 TABLET PO MOTH January 27, 2022 11:00pm Start: 01-28-2022 take 1 tablet by mouth once Ge riatric Multivitamin-Min (Multivitamin, Mineral Formula) Tablet Active 1 TABLET PO MOTH January 28, 2022 12:00am Geriatric Multivitamin-Min Tablet (8 sources) Start: 01-28-2022 Geriatric Mult ivitamin-Min Tablet Active 1 {tbl} PO .QOD January 28, 2022 12:00am handicap placard (8 sources) Start: 07-06-[address] Active 0 .Route .MEDSUPPLY 1 0 July 06, 2023 1:00am Difficulty balancing when standing Other abnormalities of gait and mobility 5 year rx 07/06/23-07/06/28 dx:R26.89 As directed Start: 07-06-[address] Active 0 .Route .MEDSUPPLY 1 July 06, 2023 1:00am As directed hydroCHLOROthiazide 12.5 mg / irbesartan 300 mg oral tablet (20 sources) Thiazide Diuretic, Angiotensin 2 Receptor Gonzalez Start: 03-19-2020 End: 07-23-2024 Start: 03-19-2020 End: 12-16-2021 take 1 tablet by mouth once daily Irbesartan-Hydrochlorothiazide Discontin ued 1 TABLET PO DAILY July 28, 2021 1:29pm December 16, 2021 3:00pm Start: 01-17-2020 End: 07-23-2024 take 1 tablet by mouth once daily Irbesartan-Hydrochlorothiazide 300-12.5 mg per tablet Indications: Essential hypertension Take 1 tablet by mouth once daily. replaces losartan hctz 90 tablet 3 01/17/2020 Active lansoprazole 30 mg delayed r elease oral capsule (20 sources) Proton Pump Inhibitor Start: 03-15-2025 Start: 04-13-2023 End: 12-19-2024 Start: 12-07-2021 End: 06-09-2022 Start: 03-19-2020 End: 05-01-2020 Start: 09-14-2019 End: 05-01-2020 lansoprazole (PREVACID) 30 m g capsule Indications: Gastroesophageal reflux disease without esophagitis Take one capsule every other day. 45 capsule 3 09/14/2019 Active omeprazole 20 mg delayed rel ease oral capsule (15 sources) Proton Pump Inhibitor Start: 02-18-2025 Start: 10-23-2024 End: 03-15-2025 (20 sources) Start: 03-27-2025 Start: 07-23-2024 Start: 10-31-2023 End: 03-27-2025 Start: 10-17-2023 End: 07-23-2024 Start: 10-17-2023 End: 10-31-2023 Start: 07-18-2023 End: 10-17-2023 Start: 07-11-2023 Start: 07-11-2023 Start: 07-06-2023 End: 10-17-2023 Start: 07-06-2023 Start: 06-09-2022 End: 07-06-2023 Start: 06-09-2022 End: 07-18-2023 Start: 06-09-2022 End: 06-09-2022 Start: 01-28-2022 Start: 01-28-2022 End: 12-30-2022 Start: 12-07-2021 End: 06-09-2022 Start: 12-07-2021 End: 07-11-2023 Start: 10-09-2020 End: 12-07-2021 Start: 10-09-2020 End: 12-07-2021 Start: 09-04-2020 End: 07-11-2023 Start: 09-04-2020 End: 09-04-2020 Start: 07-02-2020 End: 10-09-2020 Start: 07-02-2020 End: 10-09-2020 Start: 07-02-2020 Start: 07-02-2020 End: 07-02-2020 Completed/Discontinued Medications Medication Drug Class(es) Dates Sig (Normalized) Sig (Original) amLODIPine 10 mg oral tablet (20 sources) Dihydropyridine Calcium Channel Gonzalez Start: 01-17-2020 End: 07-23-2024 ascorbic acid 500 mg extended release oral tablet (14 sources) Vitamin C Start: 01-28-2022 End: 12-30-2022 atorvastatin 10 mg oral tablet (20 sources) HMG-CoA Reductase Inhibitor Start: 01-17-2020 End: 07-23-2024 Blood-Glucose Meter (Accu-Chek Mimi Plus Meter) misc (20 sources) Start: 09-04-2020 End: 07-11-2023 Blood-Glucose Meter (Accu-Chek Mimi Plus Meter) misc Discontinued 0 .ROUTE .MEDSUPPLY 1 0 September 04, 2020 9:31am July 11, 2023 10:36am Type 2 diabetes mellitus without complications As directed Start: 09-04-2020 End: 07-11-2023 Blood-Glucose Meter (Accu-Ch ek Mimi Plus Meter) misc Discontinued 0 .ROUTE .MEDSUPPLY September 04, 2020 9:31am July 11, 2023 10:36am As directed Start: 09-04-2020 Blood-Glucose Meter (Accu-Chek Mimi Plus Meter) misc Active 0 .ROUTE .MEDSUPPLY September 04, 2020 8:31am As directed Start: 09-04-2020 Blood-Glucose Meter (Accu-Chek Mimi Plus Meter) misc Active 0 .ROUTE .MEDSUPPLY September 04, 2020 9:31am As directed Start: 09-04-2020 End: 09-04-2020 Blood-Glucose Meter (Accu-Ch ek Mimi Plus Meter) misc Discontinued 0 .ROUTE .MEDSUPPLY September 04, 2020 9:23am September 04, 2020 9:32am As directed Start: 09-04-2020 End: 09-04-2020 Blood-Glucose Meter (Accu-Ch ek Mimi Plus Meter) misc Discontinued 0 .ROUTE .MEDSUPPLY September 04, 2020 1:00am September 04, 2020 9:32am Type 2 diabetes mellitus without complications As directed Start: 09-04-2020 End: 09-04-2020 Blood-Glucose Meter (Accu-Ch ek Mimi Plus Meter) misc Discontinued 0 .ROUTE .MEDSUPPLY September 04, 2020 12:00am September 04, 2020 8:32am As directed Start: 09-04-2020 End: 09-04-2020 Blood-Glucose Meter (Accu-Ch ek Mimi Plus Meter) misc Discontinued 0 .ROUTE .MEDSUPPLY September 04, 2020 1:00am September 04, 2020 9:32am As directed cefdinir 300 mg oral capsule (3 sources) Cephalosporin Antibacterial Start: 03-19-2025 End: 05-14-2025 ciprofloxacin 500 mg oral ta blet (15 sources) Quinolone Antimicrobial Start: 03-14-2025 End: 03-27-2025 Start: 12-30-2022 End: 07-06-2023 codeine phosphate 2 mg/ml / guaiFENesin 20 mg/ml oral solution (9 sources) Opioid Agonist Start: 08-22-2024 End: 09-05-2024 Start: 08-22-2024 End: 09-05-2024 take 1 mL by mouth every four to six hours as needed for cough Codeine-Guaifenesin 10-100 mg/5 mL liquid Discontinued 10 mL PO EVERY 4-6 HOURS as needed for cough 200 0 August 22, 2024 1:00am September 05, 2024 2:48pm Start: 08-22-2024 End: 09-05-2024 take 1 mL by mouth every four to six hours as needed for cough Codeine-Guaifenesin 10-100 mg/5 mL liquid Discontinued 10 mL PO EVERY 4-6 HOURS as needed for cough 200 August 22, 2024 1:00am September 05, 2024 2:48pm dexamethasone 6 mg oral tablet (17 sources) Corticosteroid Start: 06-04-2020 End: 06-10-2020 Fluad Quad (65yr up)(PF) 60 mcg (15 mcg x 4)/0.5mL IM syringe (flu vac (3 sources) Start: 05-14-2021 End: 05-14-2021 Fluad Quad (65yr up)(PF) 60 mcg (15 mcg x 4)/0.5mL IM syringe (flu vac Discontinued 60 MCG IM ONCE 0.5 May 14, 2021 10:41am May 14, 2021 11:15am fluconazole 100 mg oral tablet (2 sources) Azole Antifungal Start: 03-27-2025 End: 03-30-2025 fluorouracil 50 mg/ml topical cream (18 sources) Nucleoside Metabolic Inhibitor Start: 12-06-2023 End: 06-20-2024 Start: 12-06-2023 End: 06-20-2024 Fluorouracil 5 % cream Disco ntinued NMA TOPICAL December 06, 2023 12:00am June 20, 2024 9:23am Start: 10-25-2023 End: 11-15-2023 isopropyl alcohol 0.7 ml/ml medicated pad (18 sources) Start: 07-18-2023 End: 03-15-2025 Start: 07-18-2023 End: 03-15-2025 Alcohol Swabs pads, medicate d Discontinued 1 NMA TOPICAL TWICE A DAY 100 1 July 18, 2023 1:36pm March 15, 2025 6:29pm BID AND PRN ketoconazole 20 mg/ml topical cream (6 sources) Azole Antifungal Start: 07-27-2017 End: 04-19-2025 ketoconazole (NIZORAL) 2 % cream Indications: Perleche with candidiasis Apply 1 application to affected area once daily. Continue 1 week more after rash resolves 30 g 07/27/2017 04/19/2025 Discontinued levoFLOXacin 500 mg oral tablet (9 sources) Quinolone Antimicrobial Start: 08-22-2024 End: 09-05-2024 levothyroxine sodium 0.075 mg oral tablet (20 sources) l-Thyroxine Start: 09-14-2019 End: 07-23-2024 metFORMIN hydrochloride 500 mg oral tablet (20 sources) Biguanide Start: 03-19-2020 End: 01-31-2025 Start: 03-19-2020 End: 06-26-2020 Metformin 500 MG tablet Discontinued 1 {tbl} PO TWICE A DAY March 19, 2020 12:00am June 26, 2020 2:22pm DIABETES Start: 09-12-2019 take 2 tablets by mo ut twice daily at mealtime metFORMIN (GLUCOPHAGE) 500 mg tablet Take 2 tablets by mouth twice daily with meals. 360 tablet 3 09/12/2019 Active metoprolol tartrate 25 mg oral tablet (20 sources) beta-Adrenergic Gonzalez Start: 09-12-2019 End: 07-23-2024 nitrofurantoin, macrocrystals 25 mg / nitrofurantoin, monohydrate 75 mg oral capsule (7 sources) Nitrofuran Antibacterial Start: 02-16-2025 End: 02-21-2025 [place]-3 Fatty Acids ([place] Oil) Capsule (13 sources) Start: 01-28-2022 End: 12-30-2022 take 1 capsule by mouth once daily [place]-3 Fatty Acids ([place] Oil) Capsule Discontinued 1000 mg PO DAILY January 28, 2022 12:00am December 30, 2022 9:37am Start: 01-28-2022 End: 12-30-2022 take 1 capsule by mouth once daily [place]-3 Fatty Acids ([place] Oil) Capsule Discontinued 1000 MG PO DAILY January 28, 2022 12:00am December 30, 2022 9:37am Start: 01-28-2022 take 1 capsule by mo ut once daily [place]-3 Fatty Acids ([place] Oil) Capsule Active 1000 MG PO DAILY January 27, 2022 11:00pm Start: 01-28-2022 take 1 capsule by mo uth once daily [place]-3 Fatty Acids ([place] Oil) Capsule Active 1000 MG PO DAILY January 28, 2022 12:00am ondansetron 4 mg disintegrat ing oral tablet (9 sources) Serotonin-3 Receptor Antagonist Start: 08-23-2024 End: 10-04-2024 pantoprazole 20 mg delayed release oral tablet (20 sources) Proton Pump Inhibitor Start: 06-09-2022 End: 04-13-2023 Start: 03-30-2020 End: 07-17-2021 potassium chloride 8 meq ext ended release oral capsule (20 sources) Start: 03-19-2020 End: 12-07-2021 Start: 09-12-2019 End: 03-15-2025 Problems Active Problems Problem Classification Problem Date Documented Da te Episodic/Chronic Asthma (20 sources) Asthma; Translations: [Unspecified asthma, uncomplicated] Onset: 2 Chronic Comment on above: USES RESCUE INHALER ONLY Biliary tract disease (17 sources) Ascending cholangitis; Translations: [Other cholangitis] 12-05-2021 Chronic Cancer of thyroid (7 sources) Papillary thyroid carcinoma; Translations: [Malignant neoplasm of thyroid gland] Onset: 5 04-10-2025 Chronic Chronic obstructive pulmonary disease and bronchiectasis (6 sources) Bronchitis; Translations: [Bronchitis, not specified as acute or chronic] 02-19-2025 Episodic Deficiency and other anemia (8 sources) Microcytic anemia; Translations: [Iron deficiency anemia, unspecified] Onset: 5 04-09-2025 Episodic Deficiency and other anemia (1 source) Iron deficiency anemia, unspecified; Translations: [Microcytic anemia] Onset: 5 Episodic Diabetes mellitus with complications (18 sources) Hyperglycemia due to type 2 diabetes mellitus; Translations: [Type 2 diabetes mellitus with hyperglycemia] Onset: 4 Resolved: 7 07-11-2024 Chronic Diabetes mellitus without complication (20 sources) Type 2 diabetes mellitus; Translations: [Type 2 diabetes mellitus without complications] Onset: 8 Resolved: 4 Chronic Diabetes mellitus without complication (2 sources) Hyperglycemia, unspecified; Translations: [Hyperglycemia, unspecified] Onset: 5 Episodic Disorders of lipid metabolism (20 sources) Hyperlipidemia; Translations: [Hyperlipidemia, unspecified] Onset: 5 Resolved: 0 Chronic Esophageal disorders (20 sources) Gastroesophageal reflux disease; Translations: [Gastro-esophageal reflux disease without esophagitis] Onset: 5 Chronic Comment on above: PRN PREVACID Essential hypertension (20 sources) Essential (primary) hypertension; Translations: [Essential hypertension] Onset: 5 Chronic Fever of unknown origin (17 sources) Fever with chills; Translations: [Fever, unspecified] 12-05-2021 Episodic Fluid and electrolyte disorders (20 sources) Acute hyponatremia; Translations: [Hypo-osmolality and hyponatremia] Onset: 5 03-15-2025 Episodic Genitourinary symptoms and ill-defined conditions (17 sources) Incontinence; Translations: [Unspecified urinary incontinence] 12-05-2021 Chronic Genitourinary symptoms and ill-defined conditions (20 sources) Dysuria; Translations: [Dysuria] Onset: 5 12-07-2021 Episodic Heart valve disorders (11 sources) Nonrheumatic aortic (valve) stenosis; Translations: [Aortic valve sclerosis] Onset: 8 07-19-2019 Chronic Hemorrhoids (17 sources) Hemorrhoids; Translations: [Unspecified hemorrhoids] 12-05-2021 Episodic Immunizations and screening for infectious disease (20 sources) Patient encounter status; Translations: [Encounter for screening for COVID-19] 12-05-2021 Episodic Malaise and fatigue (17 sources) Fatigue; Translations: [Other fatigue] 12-05-2021 Episodic Neoplasms of unspecified nature or uncertain behavior (9 sources) Neoplasm of uncertain behavior of skin of nose; Translations: [Neoplasm of uncertain behavior of skin] 10-25-2023 Episodic Nonmalignant breast conditions (11 sources) Breast lump; Translations: [Unspecified lump in unspecified breast] Onset: 5 01-04-2024 Episodic Nonspecific chest pain (20 sources) Chest discomfort; Translations: [Other chest pain] Onset: 9 Resolved: 5 Episodic Nutritional deficiencies (11 sources) Vitamin D deficiency; Translations: [Vitamin D deficiency, unspecified] Onset: 9 06-24-2009 Chronic Osteoarthritis (17 sources) Arthritis; Translations: [Unspecified osteoarthritis, unspecified site] 06-01-2020 Chronic Osteoporosis (2 sources) Age-related osteoporosis without current pathological fracture; Translations: [Age-related osteoporosis without current pathological fracture] Onset: 5 Chronic Other aftercare (7 sources) Long-term current use of oral hypoglycemic medication; 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] Onset: 5 04-09-2025 Episodic Other and ill-defined heart disease (9 sources) Diastolic dysfunction; Translations: [Other ill-defined heart diseases] Onset: 9 07-19-2019 Chronic Other bone disease and musculoskeletal deformities (20 sources) Osteopenia; Translations: [Other specified disorders of bone density and structure, unspecified site] Onset: 1 06-01-2020 Episodic Other bone disease and musculoskeletal deformities (2 sources) Other specified disorders of bone density and structure, unspecified site; Translations: [Other specified disorders of bone density and structure, unspecified site] Onset: 5 Episodic Other connective tissue disease (17 sources) Muscle weakness; Translations: [Muscle weakness (generalized)] 12-05-2021 Episodic Other gastrointestinal disorders (17 sources) Diarrhea; Translations: [Diarrhea, unspecified] 12-05-2021 Episodic Other gastrointestinal disorders (9 sources) Occult blood in stools; Translations: [Other fecal abnormalities] 08-30-2024 Episodic Other gastrointestinal disorders (7 sources) Dysphagia; Translations: [Dysphagia, unspecified] Onset: 5 04-09-2025 Episodic Other infections; including parasitic (17 sources) Personal history of other infectious and parasitic diseases; Translations: [History of COVID-19] 01-28-2022 Episodic Comment on above: 2019 Other lower respiratory disease (17 sources) Cough; Translations: [Cough] 12-07-2021 Episodic Other lower respiratory disease (20 sources) Dyspnea; Translations: [Dyspnea, unspecified] Onset: 5 12-07-2021 Episodic Other lower respiratory disease (4 sources) Dyspnea, unspecified; Translations: [Other respiratory abnormalities] Episodic Other lower respiratory disease (7 sources) Hypoxia; Translations: [Hypoxemia] Onset: 5 04-09-2025 Episodic Other nervous system disorders (17 sources) Difficulty balancing when standing; Translations: [Other abnormalities of gait and mobility] 07-17-2021 Episodic Other nervous system disorders (1 source) Other acute postprocedural pain; Translations: [Acute post-operative pain] Onset: 5 Episodic Other non-traumatic joint disorders (17 sources) Pain in unspecified knee; Translations: [Knee pain] 12-05-2021 Episodic Other nutritional; endocrine; and metabolic disorders (20 sources) Obesity; Translations: [Obesity, unspecified] 12-05-2021 Chronic Other nutritional; endocrine; and metabolic disorders (10 sources) Obesity, unspecified; Translations: [Obesity, unspecified] Onset: 5 Chronic Other nutritional; endocrine; and metabolic disorders (10 sources) Obesity caused by energy imbalance; Translations: [Class 2 obesity due to excess calories without serious comorbidity with body mass index (BMI) of 37.0 to 37.9 in adult] Onset: 9 07-26-2019 Chronic Other nutritional; endocrine; and metabolic disorders (1 source) Other obesity due to excess calories; Translations: [Class 2 obesity due to excess calories without serious comorbidity with body mass index (BMI) of 36.0 to 36.9 in adult] Onset: 5 Chronic Other nutritional; endocrine; and metabolic disorders (1 source) Body mass index (BMI) 36.0-36.9, adult; Translations: [Class 2 obesity due to excess calories without serious comorbidity with body mass index (BMI) of 36.0 to 36.9 in adult] Onset: 5 Chronic Other skin disorders (9 sources) Mass of chest wall; Translations: [Localized swelling, mass and lump, trunk] 02-03-2024 Episodic Other skin disorders (9 sources) Actinic keratosis; Translations: [Actinic keratosis] 12-06-2023 Episodic Other upper respiratory disease (17 sources) Seasonal allergy; Translations: [Other seasonal allergic rhinitis] 06-01-2020 Chronic Other upper respiratory disease (9 sources) Acute bronchospasm; Translations: [Acute bronchospasm] 07-11-2024 Episodic Pancreatic disorders (not diabetes) (20 sources) Pancreatitis; Translations: [Acute pancreatitis without necrosis or infection, unspecified] 06-01-2020 Episodic Residual codes; unclassified (10 sources) Obstructive sleep apnea syndrome; Translations: [Obstructive sleep apnea (adult) (pediatric)] Onset: 9 11-08-2016 Chronic Residual codes; unclassified (1 source) Obstructive sleep apnea (adult) (pediatric); Translations: [MYLES (obstructive sleep apnea)] Onset: 7 Chronic Residual codes; unclassified (9 sources) Family history of dementia; Translations: [Family history of other mental and behavioral disorders] 12-26-2024 Episodic Residual codes; unclassified (9 sources) Memory impairment; Translations: [Other amnesia] 12-26-2024 Episodic Residual codes; unclassified (8 sources) Edema of lower extremity; Translations: [Localized edema] Onset: 5 04-09-2025 Episodic Spondylosis; intervertebral disc disorders; other back problems (9 sources) Backache; Translations: [Dorsalgia, unspecified] 08-27-2024 Episodic Thyroid disorders (20 sources) Hypothyroidism; Translations: [Hypothyroidism, unspecified] Onset: 0 Chronic Unclassified (1 source) Unknown / UNK(Unknown) Onset: 8 Unclassified (1 source) Autogenerated Problem Onset: 5 03-24-2025 Unclassified (1 source) Class 2 obesity due to excess calories without serious comorbidity with body mass index (BMI) of 36.0 to 36.9 in adult; Translations: [Class 2 obesity due to excess calories without serious comorbidity with body mass index (BMI) of 36.0 to 36.9 in adult] Onset: 5 Viral infection (20 sources) Disease caused by 2019-nCoV; Translations: [COVID-19] 12-05-2021 Episodic Past or Other Problems Problem Classification Problem Date Documented Da te Episodic/Chronic Abdominal pain (11 sources) Abdominal discomfort; Translations: [Unspecified abdominal pain] Onset: 5 08-30-2024 Episodic Gastrointestinal hemorrhage (20 sources) Gastrointestinal hemorrhage; Translations: [Hemorrhage of anus and rectum] Onset: 5 Episodic Other eye disorders (9 sources) Dermatochalasis of right upper eyelid; Translations: [Dermatochalasis] Onset: 8 Resolved: 8 05-12-2018 Episodic Other lower respiratory disease (1 source) Shortness of breath; Translations: [Shortness of breath] Onset: 5 Episodic Other nervous system disorders (9 sources) Ataxia; Translations: [Ataxia, unspecified] Onset: 9 07-26-2019 Episodic Other screening for suspected conditions (not mental disorders or infectious disease) (10 sources) Mammography abnormal; Translations: [Other abnormal and inconclusive findings on diagnostic imaging of breast] Onset: 9 06-20-2009 Episodic Other upper respiratory infections (11 sources) Acute upper respiratory infection; Translations: [Acute upper respiratory infection, unspecified] Onset: 5 08-22-2024 Episodic Residual codes; unclassified (9 sources) Family history of ischemic heart disease; Translations: [Family history of ischemic heart disease and other diseases of the circulatory system] Onset: 9 07-19-2019 Episodic Thyroid disorders (20 sources) Mass of thyroid gland; Translations: [Disorder of thyroid, unspecified] Onset: 5 03-15-2025 Episodic Unclassified (1 source) Preprocedural examination done 04-19-2025 Urinary tract infections (20 sources) Urinary tract infectious disease; Translations: [Urinary tract infection, site not specified] Onset: 5 08-22-2024 Episodic Results Test Name Value Interpretation Reference Range Facility CNOV 06-11-2025 CNOV Office Visit (OESGMN ) DL PARSONS ([id number]) 1945 F NFR Date Time Provider Department 06/11/25 3:45 PM ARTHUR LUND During your visit today, we recorded the following information about you: Arthur Lund MD 06/12/2025 12:16 PM Signed [facility] [place] Patient Name: Dl Parsons Age: [age] year old Sex: female Date: 06/11/2025 SUBJECTIVE HPI: Dl Parsons is a 80 year old female with a history significant for pT2N0 papillary thyroid cancer and a surgical history significant for total thyroidectomy on 05/21/25. She has had some dysphonia since surgery and some dysphagia in the morning with pills. Denies choking or aspiration. Pain is well controlled. Review of Systems: As per HPI OBJECTIVE Vitals: There were no vitals taken for this visit. Physical Examination: Constitutional - General Appearance: well developed, well nourished, without obvious deformities Communication: speaks with a normal voice without hoarseness Head AND Face - Facial strength: HB 1/6 Bilaterally Neck: Thyroidectomy incision is healing well, area is soft with mild supra-incisional edema, non-tender to palpation Cranial Nerves: III, IV, : EOM normal VII: Normal strength in all divisions IX, X: Normal voice XI: Shoulder strength normal XII: Tongue mobility normal PROCEDURE: With the patient sitting upright, informed consent was obtained. Topical anesthesia and vasoconstriction was applied with spray to the right and left side(s) of the nose. After waiting an appropriate period of time for anesthesia/vasoconstriction to become effective, a flexible laryngoscope was passed through the left side(s) of the nose. Nasopharynx, oropharynx, hypopharynx and larynx were examined. FINDINGS: The nasopharynx and oropharynx were normal without any lesions or masses visualized. No masses or lesions were visualized at the base of tongue, vallecula, epiglottis, aryepiglottic folds, pyriform sinuses, and lateral pharyngeal hnies. True vocal cord movement was intact bilaterally, and no lesions were visualized. The patient's airway was widely patent with no evidence of obstruction. Pt tolerated the procedure well, and there were no complications. The procedure was performed by Dr. Milian ASSESSMENT/PLAN Dl Parsons is a 80 year old female with pT2N0 papillary thyroid cancer and a surgical history significant for total thyroidectomy on 05/21/25. Healing well. 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 - Endocrinology consult for consideration of DONALD given pre-operative rapid growth and tall cell variant - Follow up in 4-6 months for post treatment ultrasound Jonnathan Milian MD for the service of Arthur Lund MD June 12, 2025 I participated in the history and physical exam of Dl Parsons. I discussed the management of Dl Parsons with the resident. I reviewed the resident's note and agree with the documented findings and plan of care. MD Mike Mora Ann M, RN 06/11/2025 4:30 PM Signed Follow up with Dr Lund in 4-6 months Referring Provider: SELF [200] Allergies As of Date: 06/11/2025 Noted Allergy Reaction CITRACAL (CALCIUM CITRATE) 12/25/2009 14 - Other: See Comments Comments: constipation PRAVASTATIN 04/13/2013 14 - Other: See Comments Comments: Achy joints, legs felt "like lead" PENICILLINS 05/13/2005 2 - Rash SULFA (SULFONAMIDE ANTIBIOTICS) 05/13/2005 2 - Rash ZOLOFT (SERTRALINE HCL) 05/14/2005 2 - Rash Date Reviewed: 06/11/2025 Reviewed by: Rachael Schroeder OCCA - Fully Assessed Reason for Visit: Follow Up [171] Cmt: Post op Primary Visit Diagnosis:Thyroid cancer (HCC) [C73] Order(s):CONSULT TO ENDOCRINOLOGY [9007] Order #: [id number]: 1 FUTURE Prescriptions as of 06/12/2025 - levothyroxine (SYNTHROID) 150 mcg tablet Take 1 tablet by mouth once daily. - ondansetron orally disintegrating (ZOFRAN ODT) 4 mg disintegrating tablet Take 1 tablet by mouth every 8 hours as needed for nausea/vomiting. - calcium carbonate (TUMS ULTRA) 400 mg (1,000 mg) chew Take 1 tablet by mouth two times a day. - Famotidine-Ca Carb-Mag Hydrox (PEPCID COMPLETE) 10-800-165 mg chew Take by mouth. - ferrous sulfate 325 mg (65 mg iron) tablet Take 1 tablet by mouth every other day. - ARNUITY ELLIPTA 100 mcg/actuation inhaler Inhale 2 puffs as instructed once daily. - blood sugar diagnostic (ACCU-CHEK MIMI PLUS TEST STRP) test strip Test blood sugar(s) 1 time daily and as needed for symptoms of high or low sugar. Dx: Type 2 DM - Controlled E11.9 Insulin: No - Lancets lancets Test blood sugar(s) 1 x daily and as needed. Dx: E11.9. Insulin: No - amLODIPine (NORVASC) 10 mg tablet Take 1 tablet by mouth once daily. - Irbe (more content not included)... Normal [facility] CNDSon 05-25-2025 CNDS HNO ID: [id number] Author: ARTHUR LUND MD Service: Otolaryngology Author Type: Nurse Practitioner Type: Discharge Summary Filed: 06/24/2025 12:07 Note Text: Attestation signed by Arthur Lund MD at 06/24/2025 12:07 PM dictated [facility] [place] [phone] or ([phone]) [facility] I N F O R M A T I O N ------ STANDARD [facility] DOCUMENT DISCHARGE SUMMARY Patient Name: Dl Parsons Patient Admission Date: 05/21/2025 Discharge Date: 05/25/2025 Attending Physician: Arthur Lund MD Principal Diagnosis: Thyroid mass [E07.9] Papillary thyroid carcinoma (HCC) [C73] Secondary Diagnoses: Patient Active Hospital Problem List: Papillary thyroid carcinoma (HCC) Date Noted: 05/21/2025 Essential hypertension Date Noted: 05/14/2005 Esophageal reflux Date Noted: 05/14/2005 MYLES (obstructive sleep apnea) Date Noted: 09/11/2008 Class 2 obesity due to excess calories without serious comorbidity with body mass index (BMI) of 36.0 to 36.9 in adult Date Noted: 09/11/2008 Hypothyroid Date Noted: 05/21/2011 Diabetes mellitus type 2, uncomplicated (HCC) Date Noted: 07/18/2014 Mixed hyperlipidemia Date Noted: 07/19/2019 Moderate persistent asthma without complication (HCC) Date Noted: Microcytic anemia Date Noted: 04/09/2025 Leg edema Date Noted: 04/09/2025 Operations During Hospitalization: urgical Procedure : Procedure(s): THYROIDECTOMY TOTAL Date of Surgery: 05/21/2025 Reason for Surgery: Pre-Op Diagnosis Codes: * Thyroid mass [E07.9] Reason for Hospitalization: Post-operative management Hospital Course: The patient was taken to the operative room for the above listed procedure. She underwent an uncomplicated surgery and was admitted directly to the PACU for post operative management of blood pressure, close monitoring airway management. The patient remained hemodynamically stable and was transferred to the [facility] . The drains were monitored and pulled when the output was <30cc/24hrs. The patient was on roxicodone/ tylenol with adequate pain control. Physical therapy/occupational therapy visited the patient and felt she was most appropriate for home at discharge. Case management was involved in the care and facilitated discharge. The patient was ambulating , voiding without difficulties, pain was controlled, all drains were removed . On POD #4, the patient was ready for discharge and instructed to follow up with Dr. Lund . Patient Condition at Discharge: Stable Discharge Disposition: Home Information Provided to the Patient: Patient given copy of Discharge Instructions No special instructions. Discharge Medications: Medication List START taking these medications calcium carbonate 400 mg (1,000 mg) Chew Commonly known as: TUMS ULTRA Take 1 tablet by mouth two times a day. ondansetron orally disintegrating 4 mg disintegrating tablet Commonly known as: ZOFRAN ODT Take 1 tablet by mouth every 8 hours as needed for nausea/vomiting. oxyCODONE IR 5 mg immediate release tablet Commonly known as: ROXICODONE Take 1 tablet by mouth every 6 hours as needed for pain for up to 5 days. CHANGE how you take these medications levothyroxine 150 mcg tablet Commonly known as: SYNTHROID Take 1 tablet by mouth once daily. What changed: medication strength how much to take CONTINUE taking these medications albuterol HFA 90 mcg/actuation inhaler Commonly known as: PROVENTIL HFA, VENTOLIN HFA Inhale 2 Puffs as instructed four times daily. amLODIPine 10 mg tablet Commonly known as: NORVASC Take 1 tablet by mouth once daily. ARNUITY ELLIPTA 100 mcg/actuation inhaler Generic drug: fluticasone furoate atorvastatin 10 mg tablet Commonly known as: LIPITOR Take 1 tablet by mouth once daily. Blood Glucose Control, Normal Soln Commonly known as: CONTOUR CONTROL SOLUTION, NML As intstructed. * BLOOD GLUCOSE TEST test strip Generic drug: blood sugar diagnostic Test blood sugar(s) 1 time daily and as needed for symptoms of high or low sugar . Dx: Type 2 DM - Controlled E11.9 Insulin: No * ACCU-CHEK MIMI PLUS TEST STRP test strip Generic drug: blood sugar diagnostic Test blood sugar(s) 1 time daily and as needed for symptoms of high or low sugar. Dx: Type 2 DM - Controlled E11.9 Insulin: No cholecalciferol (Vitamin D3) 1,250 mcg (50,000 unit) Cap capsule Commonly known as: VITAMIN D3 Take 1 capsule by mouth one time a week. ferrous sulfate 325 mg (65 mg iron) tablet Take 1 tablet by mouth every other day. Irbesartan-hydroCHLOROthiazid e 300-12.5 mg per tablet Take 1 tablet by mouth once daily. (more content not included)... Normal [facility] Basic metabolic 2000 panelon 05-23-2025 Anion gap [Moles/Vol] 14 mmol/L Normal 8-15 [facility] Comment on above: Order Comment: Speci men Type: BLOOD SPECIMENOrdering Facility: [facility] Address: [address] [place] [address] Performed By: #### 2 777-1, 38962-5, 37880-9 ####[facility] LABCLIA [id number] [place] [address] [place] Calcium [Mass/Vol] 9.2 mg/dL Normal 8.5-10.[address] [facility] Comment on above: Order Comment: Speci men Type: BLOOD SPECIMENOrdering Facility: [facility] Address: [address] [place] [address] Performed By: #### 2 777-1, , 11431-2 ####[facility] LABCLIA [id number] [address] [address] [place] Chloride [Moles/Vol] 95 mmol/L Low 98-107 [facility] Comment on above: Order Comment: Speci men Type: BLOOD SPECIMENOrdering Facility: [facility] Address: [address] [place] [address] Performed By: #### 2 777-1, , ####[facility] LABIA [id number] [place] [id number] [place] CO2 [Moles/Vol] 25 mmol/L Normal 22-30 [facility] Comment on above: Order Comment: Speci men Type: BLOOD SPECIMENOrdering Facility: [facility] Address: [address] [place] [address] Performed By: #### 2 777-1, , ####[facility] LABIA [id number] [place] [id number] [place] Creatinine [Mass/Vol] 0.67 mg/dL Normal 0.58-0.96 [facility] Comment on above: Order Comment: Speci men Type: BLOOD SPECIMENOrdering Facility: [facility] Address: [address] [place], [place] [id number] Performed By: #### 2 777-1, , ####[facility] LABIA [id number] [address] [address] [place] eGFRcr SerPlBld CKD-EPI 2020 89 mL/min/1.73m??? Normal >=60 [facility] Comment on above: Order Comment: Speci men Type: BLOOD SPECIMENOrdering Facility: [facility] Address: [address] [place] [address] Result Comment: Sofy mated Glomerular Filtration Rate (eGFR) is calculated using the 2020 CKD-EPI creatinine equation. This equation utilizes serum creatinine, sex, and age as parameters. The creatinine assay has traceable calibration to isotope dilution-mass spectrometry. Refer to KDIGO guidelines for clinical interpretation. In patients with unstable renal function, e.g. those with acute kidney injury, the eGFR may not accurately reflect actual GFR. Performed By: #### 2 777-1, , 44694-8 ####[facility] LABCLIA [id number] [place] [id number] [place] Glucose [Mass/Vol] 145 mg/dL High 74-[address] [facility] Comment on above: Order Comment: [place] cunningham Type: BLOOD SPECIMENOrdering Facility: [facility] Address: [address] [place] [address] Result Comment: The [place] [employer] (ADA) provides guidance for cutoff values for fasting glucose and random glucose. The ADA defines fasting as no caloric intake for at least 8 hours. Fasting plasma glucose results between 100 to 125 mg/dL indicate increased risk for diabetes (prediabetes). Fasting plasma glucose results greater than or equal to 126 mg/dL meet the criteria for diagnosis of diabetes. In the absence of unequivocal hyperglycemia, results should be confirmed by repeat testing. In a patient with classic symptoms of hyperglycemia or hyperglycemic crisis, random plasma glucose results greater than or equal to 200 mg/dL meet the criteria for diagnosis of diabetes. Reference: Standards of Medical Care in Diabetes 2016, [place] [employer]. Diabetes Care. 2016.39(Suppl 1). Performed By: #### 2 777-1, , 12496-5 ####[facility] LABCLIA [id number] [address] [address] [place] Potassium [Moles/Vol] 4.0 mmol/L Normal 3.7-5.1 [facility] Comment on above: Order Comment: Houston cunningham Type: BLOOD SPECIMENOrdering Facility: [facility] Address: [address] [place] [address] Performed By: #### 2 777-1, , 34405-6 ####[facility] LABCLIA [id number] [address] [place] [address] [place] Sodium [Moles/Vol] 134 mmol/L Low 136-[address] [facility] Comment on above: Order Comment: Speci men Type: BLOOD SPECIMENOrdering Facility: [facility] Address: [address] [place] [address] Performed By: #### 2 777-1, 72673-9, 88004-6 ####[facility] LABCLIA [id number] [place] [id number] [place] Urea nitrogen [Mass/Vol] 9 mg/dL Normal 7-21 [facility] Comment on above: Order Comment: Speci men Type: BLOOD SPECIMENOrdering Facility: [facility] Address: [address] [place] [address] Performed By: #### 2 777-1, , 36134-8 ####[facility] LABCLIA [id number] [place] [address] [place] CBC panel Auto (Bld)on 05-23 Erythrocyte distribution width (RBC) [Ratio] 15.9 % High 11.5-15.0 [facility] Comment on above: Order Comment: Speci men Type: BLOOD SPECIMENOrdering Facility: [facility] Address: [address] [place] [address] Performed By: #### 5 8410-2 ####[facility] LABCLIA [id number] [address] [address] [place] Hematocrit (Bld) [Volume fraction] 38.1 % Normal 36.0-46.0 [facility] Comment on above: Order Comment: Speci men Type: BLOOD SPECIMENOrdering Facility: [facility] Address: [address] [place] [address] Performed By: #### 5 8410-2 ####[facility] LABCLIA [id number] [address] [address] [place] Hemoglobin (Bld) [Mass/Vol] 12.8 g/dL Normal 11.5-15.5 [facility] Comment on above: Order Comment: Speci men Type: BLOOD SPECIMENOrdering Facility: [facility] Address: [address] [place] [address] Performed By: #### 5 8410-2 ####[facility] LABIA [id number] [place] [address] [place] MCH (RBC) [Entitic mass] 27.3 pg Normal 26.0-34.0 [facility] Comment on above: Order Comment: Speci men Type: BLOOD SPECIMENOrdering Facility: [facility] Address: [address] [place] [address] Performed By: #### 5 8410-2 ####[facility] LABIA [id number] [address] [place] MCHC (RBC) [Mass/Vol] 33.6 g/dL Normal 30.5-36.0 [facility] Comment on above: Order Comment: Speci men Type: BLOOD SPECIMENOrdering Facility: [facility] Address: [address] [place] [address] Performed By: #### 5 8410-2 ####[facility] LABIA [id number] [place] [address] [place] MCV (RBC) [Entitic vol] 81.2 fL Normal 80.0-100.0 [facility] Comment on above: Order Comment: Speci men Type: BLOOD SPECIMENOrdering Facility: [facility] Address: [address] [place] [address] Performed By: #### 5 8410-2 ####[facility] LABIA [id number] [place] [address] [place] Nucleated RBC (Bld) [#/Vol] 10*3/uL Normal <0.01 [facility] Comment on above: Order Comment: Speci men Type: BLOOD SPECIMENOrdering Facility: [facility] Address: [address] [place] [address] Performed By: #### 5 8410-2 ####[facility] LABIA [id number] [place] [address] [place] Platelet mean volume (Bld) [Entitic vol] 9.3 fL Normal 9.0-12.7 [facility] Comment on above: Order Comment: Speci men Type: BLOOD SPECIMENOrdering Facility: [facility] Address: [address] [place] [address] Performed By: #### 5 8410-2 ####[facility] LABIA [id number] [place] [address] [place] Platelets (Bld) [#/Vol] 371 10*3/uL Normal 150-400 [facility] Comment on above: Order Comment: Speci men Type: BLOOD SPECIMENOrdering Facility: [facility] Address: [address] [place] [address] Performed By: #### 5 8410-2 ####[facility] LABIA [id number] [place] [address] [place] RBC (Bld) [#/Vol] 4.69 10*6/uL Normal 3.90-5.20 [facility] Comment on above: Order Comment: Speci men Type: BLOOD SPECIMENOrdering Facility: [facility] Address: [address] [place] [address] Performed By: #### 5 8410-2 ####[facility] LABIA [id number] [place] [address] [place] WBC (Bld) [#/Vol] 12.08 10*3/uL High 3.70-11.00 [facility] Comment on above: Order Comment: Speci men Type: BLOOD SPECIMENOrdering Facility: [facility] Address: [address] [place] [address] Performed By: #### 5 8410-2 ####[facility] LABIA [id number] [place] [address] [place] Calcium.ionized [Moles/Vol]o n 05-23-2025 Calcium.ionized (Bld) [Mass/Vol] 1.14 mmol/L Normal 1.08-1.30 [facility] Comment on above: Order Comment: Speci men Type: BLOOD SPECIMENOrdering Facility: [facility] Address: [address] [place] [address] Performed By: #### 1 995-0 ####[facility] [id number] [place] [address] [place] Calcium.ionized adjusted to pH 7.4 (Bld) [Moles/Vol] 1.14 mmol/L Normal 1.08-1.30 [facility] Comment on above: Order Comment: Speci men Type: BLOOD SPECIMENOrdering Facility: [facility] Address: [address] [place] [address] Performed By: #### 1 995-0 ####[facility] [id number] [place] [address] [place] Gas and Carbon monoxide pane l (BldV)on 05-23-2025 Base excess Calc (BldV) [Moles/Vol] 4 mmol/L High 0-2 [facility] Comment on above: Order Comment: Speci men Type: VENOUS BLOOD SPECIMENOrdering Facility: [facility] Address: [address] [place] [address] Performed By: #### 2 4344-4 ####[facility] [id number] [address] [place] Body temperature 98.6 [degF] Normal [facility] Comment on above: Order Comment: Speci men Type: VENOUS BLOOD SPECIMENOrdering Facility: [facility] Address: [address] [place] [address] Performed By: #### 2 4344-4 ####[facility] [id number] [place] [address] [place] Calcium.ionized (Bld) [Mass/Vol] 1.10 mmol/L Normal 1.08-1.30 [facility] Comment on above: Order Comment: Speci men Type: VENOUS BLOOD SPECIMENOrdering Facility: [facility] Address: [address] [place] [address] Performed By: #### 2 4344-4 ####[facility] [id number] [place] [address] [place] Calcium.ionized adjusted to pH 7.4 (BldA) [Moles/Vol] 1.11 mmol/L Normal 1.08-1.30 [facility] Comment on above: Order Comment: Speci men Type: VENOUS BLOOD SPECIMENOrdering Facility: [facility] Address: [address] [place] [address] Performed By: #### 2 4344-4 ####[facility] [id number] [place] [address] [place] Carboxyhemoglobin (BldV) [Mass fraction] 1.2 % Normal 0.0-2.0 [facility] Comment on above: Order Comment: Speci men Type: VENOUS BLOOD SPECIMENOrdering Facility: [facility] Address: [address] [place] [address] Result Comment: Carb oxyhemoglobin Reference Range for Smokers: 2.0-8.0% Performed By: #### 2 4344-4 ####[facility] [id number] [place] [address] [place] CO2 (BldV) [Partial pressure] 44 mm[Hg] Normal 42-55 [facility] Comment on above: Order Comment: Speci men Type: VENOUS BLOOD SPECIMENOrdering Facility: [facility] Address: [address] [place] [address] Performed By: #### 2 4344-4 ####[facility] LABCLIA [id number] [facility] [address] [place] [address] [place] Glucose [Mass/Vol] 175 mg/dL High 60-[address] [facility] Comment on above: Order Comment: Speci men Type: VENOUS BLOOD SPECIMENOrdering Facility: [facility] Address: [address] [place] [address] Performed By: #### 2 4344-4 ####[facility] LABCLIA [id number] [facility] [address], [facility] [place] HCO3 (Bld) [Moles/Vol] 28 mmol/L Normal 24-28 [facility] Comment on above: Order Comment: Speci men Type: VENOUS BLOOD SPECIMENOrdering Facility: [facility] Address: [address] [place] [address] Performed By: #### 2 4344-4 ####[facility] LABCLIA [id number] [address], [place] [address] [place] Hematocrit (Bld) [Volume fraction] 38.8 % Normal 36.0-46.0 [facility] Comment on above: Order Comment: Speci men Type: VENOUS BLOOD SPECIMENOrdering Facility: [facility] Address: [address] [place] [address] Performed By: #### 2 4344-4 ####[facility] LABCLIA [id number] [facility] [place] [id number] [place] Hemoglobin (Bld) [Mass/Vol] 12.6 g/dL Normal 11.5-15.5 [facility] Comment on above: Order Comment: Speci men Type: VENOUS BLOOD SPECIMENOrdering Facility: [facility] Address: [address] [place] [address] Performed By: #### 2 4344-4 ####[facility] LABCLIA [id number] [facility] [address], [facility]95 [place] Lactate [Moles/Vol] 1.3 mmol/L Normal 0.5-2.2 [facility] Comment on above: Order Comment: Speci men Type: VENOUS BLOOD SPECIMENOrdering Facility: [facility] Address: [address] [place] [address] Performed By: #### 2 4344-4 ####[facility] LABCLIA [id number] [address] [address] [place] Methemoglobin (Bld) [Mass fraction] 0.9 % Normal 0.0-1.5 [facility] Comment on above: Order Comment: Speci men Type: VENOUS BLOOD SPECIMENOrdering Facility: [facility] Address: [address] [place] [address] Performed By: #### 2 4344-4 ####[facility] LABCLIA [id number] [place] [address] [place] O2 THERAPY NC = Nasal Cannula Normal [facility] Comment on above: Order Comment: Speci men Type: VENOUS BLOOD SPECIMENOrdering Facility: [facility] Address: [address] [place] [address] Result Comment: 3 Performed By: #### 2 4344-4 ####[facility] LABCLIA [id number] [address] [address] [place] Oxygen (BldV) [Partial pressure] 132 mm[Hg] High 35-45 [facility] Comment on above: Order Comment: Speci men Type: VENOUS BLOOD SPECIMENOrdering Facility: [facility] Address: [address] [place] [address] Performed By: #### 2 4344-4 ####[facility] LABCLIA [id number] [place] [address] [place] Oxygen saturation in Venous blood 100 % High 60-85 [facility] Comment on above: Order Comment: Speci men Type: VENOUS BLOOD SPECIMENOrdering Facility: [facility] Address: [address] [place] [address] Performed By: #### 2 4344-4 ####[facility] LABCLIA [id number] [address] [address] [place] Oxyhemoglobin (BldV) [Mass fraction] 97 % High 60-85 [facility] Comment on above: Order Comment: Speci men Type: VENOUS BLOOD SPECIMENOrdering Facility: [facility] Address: [address] [place] [address] Performed By: #### 2 4344-4 ####[facility] LABIA [id number] [address] [address] [place] pH (BldV) 7.42 [pH] Normal 7.32-7.42 [facility] Comment on above: Order Comment: Speci men Type: VENOUS BLOOD SPECIMENOrdering Facility: [facility] Address: [address] [place] [address] Performed By: #### 2 4344-4 ####[facility] LABIA [id number] [place] [address] [place] Potassium [Moles/Vol] 3.7 mmol/L Normal 3.5-5.0 [facility] Comment on above: Order Comment: Speci men Type: VENOUS BLOOD SPECIMENOrdering Facility: [facility] Address: [address] [place] [address] Performed By: #### 2 4344-4 ####[facility] LABIA [id number] [place] [address] [place] Sodium [Moles/Vol] 131 mmol/L Low 136-[address] [facility] Comment on above: Order Comment: Speci men Type: VENOUS BLOOD SPECIMENOrdering Facility: [facility] Address: [address] [place] [address] Performed By: #### 2 4344-4 ####[facility] LABIA [id number] [address] [address] [place] Magnesium SerPl-ncon 05-23 Magnesium [Mass/Vol] 1.9 mg/dL Normal 1.7-2.3 [facility] Comment on above: Order Comment: Speci men Type: BLOOD SPECIMENOrdering Facility: [facility] Address: [address] [place] [address] Performed By: #### 2 777-1, , 64808-7 ####[facility] LABCLIA [id number] [place] [address] [place] Phosphate SerPl-mCncon 05-23 Phosphate [Mass/Vol] 3.1 mg/dL Normal 2.7-4.8 [facility] Comment on above: Order Comment: Speci men Type: BLOOD SPECIMENOrdering Facility: [facility] Address: [address] [place] [address] Performed By: #### 2 777-1, , 26565-5 ####[facility] LABCLIA [id number] [place] [address] [place] Basic metabolic 2000 panelon 05-22-2025 Anion gap [Moles/Vol] 11 mmol/L Normal 8-15 [facility] Comment on above: Order Comment: Speci men Type: BLOOD SPECIMENOrdering Facility: [facility] Address: [address] [place] [address] Performed By: #### 2 4321-2, 2777-1, , 8 ####[facility] LABCLIA [id number] [place] [address] [place] Calcium [Mass/Vol] 9.0 mg/dL Normal 8.5-10.[address] [facility] Comment on above: Order Comment: Speci men Type: BLOOD SPECIMENOrdering Facility: [facility] Address: [address] [place], [place] [address] Performed By: #### 2 4321-2, 2777-1, , 8 ####[facility] LABCLIA [id number] [address] [address] [place] Chloride [Moles/Vol] 101 mmol/L Normal 98-107 [facility] Comment on above: Order Comment: Speci men Type: BLOOD SPECIMENOrdering Facility: [facility] Address: [address] [place] [address] Performed By: #### 2 4321-2, 277-1, , 2731-03 ####[facility] LABCLIA [id number] [place] [address] [place] CO2 [Moles/Vol] 25 mmol/L Normal 22-30 [facility] Comment on above: Order Comment: Speci men Type: BLOOD SPECIMENOrdering Facility: [facility] Address: [address] [place] [address] Performed By: #### 2 4321-2, 277-1, , 2731-03 ####[facility] LABCLIA [id number] [place] [address] [place] Creatinine [Mass/Vol] 0.58 mg/dL Normal 0.58-0.96 [facility] Comment on above: Order Comment: Speci men Type: BLOOD SPECIMENOrdering Facility: [facility] Address: [address] [place] [address] Performed By: #### 2 4321-2, 277-1, , 2731-03 ####[facility] LABCLIA [id number] [place] [address] [place] eGFRcr SerPlBld CKD-EPI 2020 92 mL/min/1.73m??? Normal >=60 [facility] Comment on above: Order Comment: Speci men Type: BLOOD SPECIMENOrdering Facility: [facility] Address: [address] [place] [address] Result Comment: Sofy mated Glomerular Filtration Rate (eGFR) is calculated using the 2020 CKD-EPI creatinine equation. This equation utilizes serum creatinine, sex, and age as parameters. The creatinine assay has traceable calibration to isotope dilution-mass spectrometry. Refer to KDIGO guidelines for clinical interpretation. In patients with unstable renal function, e.g. those with acute kidney injury, the eGFR may not accurately reflect actual GFR. Performed By: #### 2 4321-2, 2776-, , 2731-03 ####[facility] LABCLIA [id number] [address] [address] [place] Glucose [Mass/Vol] 164 mg/dL High 74-[address] [facility] Comment on above: Order Comment: [place] cunningham Type: BLOOD SPECIMENOrdering Facility: [facility] Address: [address] [place] [address] Result Comment: The [place] [employer] (ADA) provides guidance for cutoff values for fasting glucose and random glucose. The ADA defines fasting as no caloric intake for at least 8 hours. Fasting plasma glucose results between 100 to 125 mg/dL indicate increased risk for diabetes (prediabetes). Fasting plasma glucose results greater than or equal to 126 mg/dL meet the criteria for diagnosis of diabetes. In the absence of unequivocal hyperglycemia, results should be confirmed by repeat testing. In a patient with classic symptoms of hyperglycemia or hyperglycemic crisis, random plasma glucose results greater than or equal to 200 mg/dL meet the criteria for diagnosis of diabetes. Reference: Standards of Medical Care in Diabetes 2016, [place] [employer]. Diabetes Care. 2016.39(Suppl 1). Performed By: #### 2 4321-2, 2776-, , 2731-03 ####[facility] LABCLIA [id number] [address] [address] [place] Potassium [Moles/Vol] 4.4 mmol/L Normal 3.7-5.1 [facility] Comment on above: Order Comment: [place] cunningham Type: BLOOD SPECIMENOrdering Facility: [facility] Address: [address] [place] [address] Performed By: #### 2 4321-2, 277-, , 2731-03 ####[facility] LABCLIA [id number] [address] [address] [place] Sodium [Moles/Vol] 137 mmol/L Normal 136-[address] [facility] Comment on above: Order Comment: Speci men Type: BLOOD SPECIMENOrdering Facility: [facility] Address: [address] [place] [address] Performed By: #### 2 4321-2, 2777-1, 08384-3, 2730-8 ####[facility] LABCLIA [id number] [place] [address] [place] Urea nitrogen [Mass/Vol] 7 mg/dL Normal 7-21 [facility] Comment on above: Order Comment: Speci men Type: BLOOD SPECIMENOrdering Facility: [facility] Address: [address] [place] [address] Performed By: #### 2 4321-2, 2777-1, 27133-6, 2730-8 ####[facility] LABCLIA [id number] [place] [address] [place] CBC panel Auto (Bld)on 05-22 Erythrocyte distribution width (RBC) [Ratio] 15.3 % High 11.5-15.0 [facility] Comment on above: Order Comment: Speci men Type: BLOOD SPECIMENOrdering Facility: [facility] Address: [address] [place] [address] Performed By: #### 5 8410-2 ####[facility] LABCLIA [id number] [place] [id number] [place] Hematocrit (Bld) [Volume fraction] 37.1 % Normal 36.0-46.0 [facility] Comment on above: Order Comment: Speci men Type: BLOOD SPECIMENOrdering Facility: [facility] Address: [address] [place] [address] Performed By: #### 5 8410-2 ####[facility] LABCLIA [id number] [place] [id number] [place] Hemoglobin (Bld) [Mass/Vol] 12.0 g/dL Normal 11.5-15.5 [facility] Comment on above: Order Comment: Speci men Type: BLOOD SPECIMENOrdering Facility: [facility] Address: [address] [place] [address] Performed By: #### 5 8410-2 ####[facility] LABCLIA [id number] [place] [address] [place] MCH (RBC) [Entitic mass] 27.3 pg Normal 26.0-34.0 [facility] Comment on above: Order Comment: Speci men Type: BLOOD SPECIMENOrdering Facility: [facility] Address: [address] [place] [address] Performed By: #### 5 8410-2 ####[facility] LABIA [id number] [address] [place] MCHC (RBC) [Mass/Vol] 32.3 g/dL Normal 30.5-36.0 [facility] Comment on above: Order Comment: Speci men Type: BLOOD SPECIMENOrdering Facility: [facility] Address: [address] [place] [address] Performed By: #### 5 8410-2 ####[facility] LABIA [id number] [place] [address] [place] MCV (RBC) [Entitic vol] 84.5 fL Normal 80.0-100.0 [facility] Comment on above: Order Comment: Speci men Type: BLOOD SPECIMENOrdering Facility: [facility] Address: [address] [place] [address] Performed By: #### 5 8410-2 ####[facility] LABIA [id number] [place] [address] [place] Nucleated RBC (Bld) [#/Vol] 10*3/uL Normal <0.01 [facility] Comment on above: Order Comment: Speci men Type: BLOOD SPECIMENOrdering Facility: [facility] Address: [address] [place] [address] Performed By: #### 5 8410-2 ####[facility] LABIA [id number] [place] [address] [place] Platelet mean volume (Bld) [Entitic vol] 9.6 fL Normal 9.0-12.7 [facility] Comment on above: Order Comment: Speci men Type: BLOOD SPECIMENOrdering Facility: [facility] Address: [address] [place] [address] Performed By: #### 5 8410-2 ####[facility] LABIA [id number] [place] [address] [place] Platelets (Bld) [#/Vol] 350 10*3/uL Normal 150-400 [facility] Comment on above: Order Comment: Speci men Type: BLOOD SPECIMENOrdering Facility: [facility] [facility] Address: [address] [place] [address] Performed By: #### 5 8410-2 ####[facility] LABIA [id number] [place] [address] [place] RBC (Bld) [#/Vol] 4.39 10*6/uL Normal 3.90-5.20 [facility] Comment on above: Order Comment: Speci men Type: BLOOD SPECIMENOrdering Facility: [facility] Address: [address] [place] [address] Performed By: #### 5 8410-2 ####[facility] LABIA [id number] [place] [address] [place] WBC (Bld) [#/Vol] 10.59 10*3/uL Normal 3.70-11.00 [facility] Comment on above: Order Comment: Speci men Type: BLOOD SPECIMENOrdering Facility: [facility] Address: [address] [place] [address] Performed By: #### 5 8410-2 ####[facility] [id number] [place] [id number] [place] Calcium.ionized [Moles/Vol]o n 05-22-2025 Calcium.ionized (Bld) [Mass/Vol] 1.21 mmol/L Normal 1.08-1.30 [facility] Comment on above: Order Comment: Speci men Type: BLOOD SPECIMENOrdering Facility: [facility] Address: [address] [place] [address] Performed By: #### 1 995-0 ####[facility] [id number] [address] Calcium.ionized adjusted to pH 7.4 (Bld) [Moles/Vol] 1.21 mmol/L Normal 1.08-1.30 [facility] Comment on above: Order Comment: Speci men Type: BLOOD SPECIMENOrdering Facility: [facility] Address: [address] [place] [address] Performed By: #### 1 995-0 ####[facility] [id number] [address] [place] Magnesium SerPl-mCncon 05-22 Magnesium [Mass/Vol] 1.8 mg/dL Normal 1.7-2.3 [facility] Comment on above: Order Comment: Speci men Type: BLOOD SPECIMENOrdering Facility: [facility] Address: [address] [place] [address] Performed By: #### 2 4321-2, 2777-1, 72017-6, 2731-8 ####[facility] [id number] [address] [place] NURSING PROGon 05-22-2025 NURSING PROG HNO ID: [id number] Author: IRAJ INMAN, RN Service: Nursing Author Type: Registered Nurse Type: Nursing Progress Note Filed: 05/22/2025 15:38 Note Text: Transfer Note: PATIENT NAME: Dl Parsons Patient Location: 029 Room: [place] [address] Patient transferred into room/unit [facility] in stable condition. Actions taken: Oriented pt to floor and unit. Bed locked in lowest position. Belongings within reach. No futher actions taken at this time. Will continue to monitor and check with patient. Normal [facility] NURSING PROG HNO ID: [id number] Author: NICKY STALEY, RN Service: Nursing Author Type: Registered Nurse Type: Nursing Progress Note Filed: 05/22/2025 15:26 Note Text: Nursing Progress Note Topic of Note: Incidental PATIENT NAME: Dl Parsons Patient Location: [facility] 001 Room: [place] [address] 1440: Report called to Xenia on G81. 1525: Patient transferred to [facility] via bed in stable condition. This note was completed by: Nicky Staley Normal [facility] PTH-Intact SerPl-ncon 10- Parathyrin.intact [Mass/Vol] 30 pg/mL Normal 15-65 [facility] Comment on above: Order Comment: Speci men Type: BLOOD SPECIMENOrdering Facility: [facility] Address: [address] [place] [address] Performed By: #### 2 4321-2, 2777-1, , 2731-03 ####[facility] [id number] [address] [place] Phosphate SerPl-mCncon 05-22 Phosphate [Mass/Vol] 3.3 mg/dL Normal 2.7-4.8 [facility] Comment on above: Order Comment: Speci men Type: BLOOD SPECIMENOrdering Facility: [facility] Address: [address] [place] [address] Performed By: #### 2 4321-2, 2777-1, , 2731-03 ####[facility] LABIA [id number] [address] [address] [place] ANES POSTPROC EVALon 025 ANES POSTPROC EVAL HNO ID: [id number] Author: YARON MAGAÑA MD Service: ? Author Type: Anesthesiologist Type: Anesthesia Postprocedure Evaluation Filed: 05/21/2025 14:51 Note Text: POST ANESTHESIA EVALUATION NOTE : 1945 Procedure Summary Date: 05/21/25 Room / Location: [address] Anesthesia Start: 949 Anesthesia Stop: 1324 Procedure: THYROIDECTOMY TOTAL (Thyroid) Diagnosis: Thyroid mass (Thyroid mass [E07.9]) Surgeons: Arthur Lund MD Responsible Provider: Yaron Magaña MD Anesthesia Type: general ASA Status: 3 Anesthesia Type: general Airway Type: ETT Last Vitals Vitals Value Taken Time BP 128/60 05/21/25 14:45 Temp 36.4 ?C (97.5 ?F) 05/21/25 14:30 Pulse 100 05/21/25 14:46 Resp 17 05/21/25 14:46 SpO2 95 % 05/21/25 14:46 Vitals shown include unfiled device data. Post Anesthesia Patient Status Patient Evaluation: PACU. PACU/ICU Patient Condition: stable. Anticipated Disposition: inpatient floor planned admission. Neurological Status: aware and responsive. Pulmonary Status: breathing comfortably on supplemental oxygen Airway Control: returned to baseline unsupported. Cardiovascular Status: stable. Pain Management: clinically adequate Postoperative Hydration: acceptable. Intraoperative Events: no significant anesthesia events Post Operative Nausea/Vomiting Status: no significant post operative nausea or vomiting Recommendation: continue current plan of care. Anesthesia Observations No Documentation SIGNATURE: Yaron Magaña MD PATIENT NAME: Dl Parsons DATE: May 21, 2025 TIME: 2:51 PM CSN: [id number] Normal [facility] ANES PRE-OPon 05-21-2025 ANES PRE-OP HNO ID: [id number] Author: YARON MAGAÑA MD Service: ? Author Type: Anesthesiologist Type: Anesthesia Preprocedure Evaluation Filed: 05/21/2025 09:50 Note Text: ANESTHESIOLOGY DAY OF SURGERY NOTE : 1945 Procedure Information Date/Time: 05/21/2545 Procedure: THYROIDECTOMY TOTAL (Thyroid) Location: MAIN [address] [facility] Surgeons: Arthur Lund MD Estimated body mass index is 36.64 kg/m? as calculated from the following: Height as of 04/19/25: 152.4 cm (5'). Weight as of 04/19/25: 85.1 kg (187 lb 9.8 oz). Most recent hematocrit and potassium results: Hematocrit 37.7 04/19/2025 Potassium 3.8 04/19/2025 Relevant Problems ANESTHESIA (+) MYLES (obstructive sleep apnea) CARDIO (+) Essential hypertension ENDO (+) Diabetes mellitus type 2, uncomplicated (HCC) (+) Hypothyroid GI (+) Esophageal reflux PULMONARY (+) Asthma (HCC) (+) Dyspnea (+) Moderate persistent asthma without complication (HCC) (+) MYLES (obstructive sleep apnea) I - PHYSICAL EVALUATION AIRWAY Patient intubated: No. Tracheostomy tube not present Mallampati: I. TM distance: >3 FB. Neck ROM: full ROM without neurological symptoms. Mouth opening: >3 FB. Short neck: no. Thick neck: yes Additional exam findings: no II - ANESTHESIA PLAN ASA Score: 3 Anesthetic Plan: general Airway type: ETT NPO Status: adequate Monitoring Plan Monitoring plan: standard ASA. Post Procedure Analgesic Plan Postoperative analgesic plan: multimodal analgesia. Informed Consent Anesthetic risks, benefits, alternatives, personnel and consent discussed: yes. Patient / Responsible [employer] agrees to proceed: yes Patient / Surrogate agrees to blood products: Yes DNR status not reviewed with patient and/or family prior to surgery. Significant changes in the patient condition since the History and Physical, not otherwise documented in primary service progress note: no. Potential Anesthesia issues that may suggest increased risk of complications or contraindication to planned procedure: none. Vitals Value Taken Time BP 157/69 05/21/25 08:42 Pulse 64 05/21/25 08:42 Resp 16 05/21/25 08:42 Temp 36.1 ?C (97 ?F) 05/21/25 08:42 SpO2 95 % 05/21/25 08:42 Facility-Administered Medications as of 05/21/2025 Medication Dose Route Frequency dextrose 10% iv bolus 12.5 g INTRAVENOUS PRN Or glucagon 0.5-1 mg injection 0.5-1 mg INTRAMUSCULAR PRN lidocaine (PF) 10 mg/mL (1 %) 1-2 mg injection (XYLOCAINE) 0.1-0.2 mL INTRADERMAL PRN Or lidocaine 1% 0.25 mL subcutaneous j-tip syringe (XYLOCAINE) 0.25 mL SUBCUTANEOUS PRN lactated ringers iv infusion 5-30 mL/hr INTRAVENOUS CONTINUOUS NaCl 0.9% iv flush bag 20 mL INTRAVENOUS PRN ceFAZolin 2 g in dextrose (iso-osmotic) 50 mL (ANCEF,KEFZOL) 2 g INTRAVENOUS Pre-Op Once Outpatient Medications as of 05/21/2025 Medication Sig Famotidine-Ca Carb-Mag Hydrox (PEPCID COMPLETE) 10-800-165 mg chew Take by mouth. ARNUITY ELLIPTA 100 mcg/actuation inhaler Inhale 2 puffs as instructed once daily. amLODIPine (NORVASC) 10 mg tablet Take 1 tablet by mouth once daily. Irbesartan-Hydrochlorothiazid e 300-12.5 mg per tablet Take 1 tablet by mouth once daily. replaces losartan hctz atorvastatin (LIPITOR) 10 mg tablet Take 1 tablet by mouth once daily. cholecalciferol, Vitamin D3, (VITAMIN D3) 1,250 mcg (50,000 unit) cap capsule Take 1 capsule by mouth one time a week. levothyroxine (LEVOXYL) 75 mcg tablet Take 1 tablet by mouth once daily. lansoprazole (PREVACID) 30 mg capsule Take one capsule every other day. metoprolol tartrate, short acting, (LOPRESSOR) 25 mg tablet Take 1 tablet by mouth twice daily. metFORMIN (GLUCOPHAGE) 500 mg tablet Take 2 tablets by mouth twice daily with meals. albuterol HFA (PROVENTIL HFA, VENTOLIN HFA) 90 mcg/actuation inhaler Inhale 2 Puffs as instructed four times daily. ferrous sulfate 325 mg (65 mg iron) tablet Take 1 tablet by mouth every other day. blood sugar diagnostic (ACCU-CHEK MIMI PLUS TEST STRP) test strip Test blood sugar(s) 1 time daily and as needed for symptoms of high or low sugar. Dx: Type 2 DM - Controlled E11.9 Insulin: No Lancets lancets Test blood sugar(s) 1 x daily and as needed. Dx: E11.9. Insulin: No Lancing Device with Lancets (ACCU-CHEK SOFT DEV LANCETS) Check sugars daily and as needed. E11.9 DM type 2, Insulin: No potassium chloride SR (MICRO-K) 8 mEq cpER Take 1 capsule by mouth twice daily. blood sugar diagnostic (BLOOD GLUCOSE TEST) test strip Test blood sugar(s) 1 time daily and as needed for symptoms of high or low sugar . Dx: Type 2 DM - Controlled E11.9 Insulin: No Blood Glucose Control, Normal (CONTOUR CONTROL SOLUTION, NML) Misc Soln As intstructed. I have interviewed and examined the patient. I have reviewed the medical record and/or the pre-anesthesia evaluation, pertinent labs, and test results. This contains updated information obtained within 48 hours of Surgery/Pro (more content not included)... Normal [facility] BRIEF OP NOTon 05-21-2025 BRIEF OP NOT HNO ID: [id number] Author: PAMELA BRAVO MD Service: Otolaryngology Author Type: Resident Type: Brief Op Note Filed: 05/21/2025 13:45 Note Text: BRIEF OP NOTE LOG ID: [id number] Surgery/Procedure Date: 05/21/2025 Incision/Procedure Start Time: 10:17 AM Incision Close/Procedure End Time: 12:55 PM Surgeon(s)/Proceduralist(s) and Energy Sales Broker(s): Surgeons and Role: * Arthur Lund MD - Primary * Pamela Bravo MD - Resident - Assisting * Jonnathan Milina MD Procedure(s): Total thyroidectomy Anesthesia: General Findings: Firm nodule involving left isthmus. Left thyroid closely adherent to strap muscles. Cuff of strap muscles taken with specimen The superior and inferior parathyroids were identified and preserved. Estimated Blood Loss: 25 mls Specimens: ID Type Source Tests Collected by Time Destination A : Question?; Left superior parathyroid Tissue Soft Tissue (Not otherwise specified) SURGICAL PATHOLOGY Arthur Lund MD 05/21/2025 11:34 AM B : total thyroid; limited central neck; stich right superior lobe Tissue Thyroid, Total, Thyroidectomy SURGICAL PATHOLOGY Arthur Lund MD 05/21/2025 12:28 PM Implants: * No implants in log * Complications: None Pre-Op/Pre-Procedure Diagnosis: Pre-Op Diagnosis Codes: * Thyroid mass [E07.9] Post-Op/Post-Procedure Diagnosis: same SIGNATURE: Pamela Bravo MD PATIENT NAME: Dl Parsons DATE: May 21, 2025 TIME: 1:04 PM PAGER/CONTACT #: [phone] Normal [facility] Calcium.ionized [Moles/Vol]o n 05-21-2025 Calcium.ionized (Bld) [Mass/Vol] 1.26 mmol/L Normal 1.08-1.30 [facility] Comment on above: Order Comment: Speci men Type: BLOOD SPECIMENOrdering Facility: [facility] Address: [address] [place] [address] Performed By: #### 1 995-0 ####[facility] [id number] [place] [address] [place] Calcium.ionized adjusted to pH 7.4 (Bld) [Moles/Vol] 1.23 mmol/L Normal 1.08-1.30 [facility] Comment on above: Order Comment: Speci men Type: BLOOD SPECIMENOrdering Facility: [facility] Address: [address] [place] [address] Performed By: #### 1 995-0 ####[facility] [id number] [place] [address] [place] Calcium.ionized (Bld) [Mass/Vol] 1.19 mmol/L Normal 1.08-1.30 [facility] Comment on above: Order Comment: Speci men Type: BLOOD SPECIMENOrdering Facility: [facility] Address: [address] [place] [address] Performed By: #### 1 995-0 ####[facility] [id number] [address] [place] Calcium.ionized adjusted to pH 7.4 (Bld) [Moles/Vol] 1.16 mmol/L Normal 1.08-1.30 [facility] Comment on above: Order Comment: Speci men Type: BLOOD SPECIMENOrdering Facility: [facility] Address: [address] [place] [address] Performed By: #### 1 995-0 ####[facility] LABCLIA [id number] [place] [id number] [place] OPERATIVE NOon 05-21-2025 OPERATIVE NO HNO ID: [id number] Author: ARTHUR LUND MD Service: Otolaryngology Author Type: Physician Type: Operative Report Filed: 05/21/2025 15:48 Note Text: The [place] [phone] or [phone] [facility] E N T I A L I N F O R M A T I O N ------ STANDARD [facility] DOCUMENT OPERATIVE REPORT Otolaryngology Head and Neck Surgery Name: Dl Parsons [facility] #: [id number] Date: 05/21/2025 Date of : 1945 Pre Operative Diagnoses: Papillary thyroid carcinoma Post Operative Diagnoses: Invasive papillary thyroid cancer Incision/Procedure Start Time: 10:17 AM Incision Close/Procedure End Time: 12:55 PM Surgeons and Role: * Arthur Lund MD - Primary * Pamela Bravo MD - Resident - Assisting * Jonnathan Milian MD Procedure(s): 1) Extended Total thyroidectomy (including left sternothyroid muscle) with limited central neck dissection (pretracheal) , complex 2) Nerve integrity monitoring Anesthesia: General Operative Indications: Dl Parsons is an 80 year old female who presented with a thyroid mass centered at the left isthmus. FNA showed papillary thyroid carcinoma. The decision was to bring the patient to the OR for the above procedure. All risks, benefits, and alternatives to the above procedure were discussed with the patient and informed consent obtained. Operative Findings: 1) The thyroid was removed en bloc. Firm nodularity of the left thyroid lobe. Left thyroid lobe closely adherent to strap muscles. Cuff of strap muscles (sternothyroid m.) taken with specimen 2) Bilateral recurrent laryngeal nerves was identified and preserved. They stimulated well at the end of the case 3) The superior and inferior parathyroids were identified and preserved. Procedure Details: The patient was brought to the operating room from the preoperative area. A preoperative huddle was performed and the patient was identified by the name and date of . The procedure to be performed was confirmed with all the personnel involved. The patient was then placed under general anesthesia by the Anesthesia team. The was intubated using a NIMS endotracheal tube. Nerve monitoring was confirmed to be functioning at the beginning of the case and used throughout the case. The incision was marked then injected with lidocaine with epi after application of an alcohol swab. The patient was prepped and draped in the usual sterile fashion. A preoperative time-out was then performed. A 10 blade was used to make an incision at the site of the previously marked crease down to the level of the platysma. The platysma was divided with sharp dissection carried down to the fascia overlying the strap musculature with protection of the anterior jugular veins. Subplatysmal flaps were raised superiorly to just below the hyoid and inferiorly to the clavicle. These were held back with [place] retractors. The midline raphae was was bisected so the strap musculature could be at midline. We began the dissection on the left side. The sternohyoid musculature was identified and retracted laterally to visualize thyroid lobe. This easily from the underlying sternothyroid muscle. The thyroid was noted to be adherent to the sternothyroid with a poor dissection plane. The decision was made to divide the strap musculature to gain adequate exposure and a cuff of sternothyroid muscle was left overlying the thyroid gland to be removed with the specimen due to close adherence and concern for possible muscular invasion. Dissection was undertaken using a combination of the blunt dissection with the tonsil, harmonic scalpel and titanium Ligaclips as needed to try and mobilize the thyroid lobe, first superiorly and then inferiorly. The superior then inferior pole vessels were carefully taken down. Bipolar cauterization was used as necessary for meticulous hemostasis. The inferior parathyroid gland was visualized during this dissection and carefully dissected off of the thyroid gland with preservation of the vascular supply. The PT-Eye was used to confirm the locations of the parathyroid glands. A nodule on the left superior thyroid pole was sent for frozen section to rule out parathyroid tissue, which showed thyroid tissue, negative for parathyroid or carcinoma. The PT-Eye identified the left superior parathyroid deeper within the left paratracheal region and this was preserved. The thyroid lobe was retracted medially. Dissection on the perithyroid sheath was undertaken with ultimate identification of the recurrent laryngeal nerve. With meticulous dissection taking extra care to avoid any injury to the recurrent laryngeal nerve, the thyroid lobe was then then dissected free from surrounding tissue superiorly and (more content not included)... [facility] Pathology biopsy report Nikita (Tiss)on 05-21-2025 AP DISCLAIMER Normal [facility] Comment on above: Order Comment: Speci men Type: TISSUE SPECIMENOrdering Facility: [facility] Address: [address] [place] [address] Result Comment: Michelle dubois Developed Test (LDT) Disclaimer: Performance characteristics of immunohistochemical, immunofluorescent, and chromogenic in-situ hybridization tests have been determined by the performing laboratory within the [facility] Department of Pathology and Laboratory Medicine ([facility], [facility][1], [facility], [facility], [facility], [facility], or [facility]) in a manner consistent with CLIA requirements. One or more of these tests may not have been cleared or approved by the FDA. The [facility] Department of Pathology and Laboratory Medicine is regulated under CLIA as qualified to perform high-complexity testing. These tests are used for clinical purposes. These should not be regarded as investigational or for research. Positive and negative controls stain appropriately. Performed By: #### 6 6121-5 ####[facility] LABCLIA [id number] [address] STATES OF [facility] LABORATORYCLIA [id number] [address] [place] BLOCK FOR ADDITIONAL BIOMARKERS/MOLECULAR STUDIES B3 Normal [facility] Comment on above: Order Comment: Speci men Type: TISSUE SPECIMENOrdering Facility: [facility] Address: [address] [place] [address] Performed By: #### 6 6121-5 ####[facility] LABCLIA [id number] [address] LABORATORYIA [id number] [address] [place] CASE REPORT Normal [facility] Comment on above: Order Comment: Speci men Type: TISSUE SPECIMENOrdering Facility: [facility] Address: [address] [place] [address] Result Comment: Surg ical Pathology Report Case: [id number] Authorizing Provider: Arthur Lund MD Collected: 05/21/2025 11:34 AM Ordering Location: Admitting Received: 05/21/2025 11:38 AM Pathologist: Mona Gleason MD Intraop: Rajwinder Mar MD Specimens: A) - Soft Tissue (Not otherwise specified), Question?; Left superior parathyroid B) - Thyroid, Total, Thyroidectomy, total thyroid; limited central neck; stich right superior lobe Performed By: #### 6 6121-5 ####[facility] LABCLIA [id number] [address] LABORATORYCLIA [id number] [address] [place] CLINICAL HISTORY Normal [facility] Comment on above: Order Comment: Speci men Type: TISSUE SPECIMENOrdering Facility: [facility] Address: [address] [place] [address] Result Comment: Pre- op diagnosis: Thyroid mass [E07.9] Performed By: #### 6 6121-5 ####[facility] LABCLIA [id number] [address] LABORATORYCLIA [id number] [address] [place] DIAGNOSIS COMMENT The thyroid contains three foci of papillary thyroid carcinoma. The largest, in the left lower lobe and isthmus spans 3.8 cm. A focus of segmental necrosis was noted on the needle biopsy of this lesion ([id number]) raising the possibility of a high-grade neoplasm however the finding was indeterminate. On the resection, the entire nodule is histologically evaluated, and dense internal fibrosis is present, suggesting a prior infarct. No coagulative/tumor-type necrosis is seen. No high-grade features are identified. This nodule is confined to the thyroid and does not extend to the margin (< 1 mm). In addition, the left upper lobe of the thyroid shows a 1.2 cm papillary thyroid carcinoma, conventional/classic subtype. The margin on this nodule is positive. A minimally invasive follicular variant papillary thyroid carcinoma is also noted in the left upper lobe (0.3 cm). This nodule is confined to the thyroid and does not extend to the margin. For all of these nodules, no lymphovascular invasion is seen and no high-grade features are identified. The tumor approaches but does not invade attached skeletal muscle. The pathologic stage is pT2 (m), pN0 (AJCC eighth edition). Selected slides from the dominant nodule are reviewed in conjunction with Dr. Collins Guerra (B3-B6, B11, B13), who agrees with the diagnosis. Normal [facility] Comment on above: Order Comment: [place] cunningham Type: TISSUE SPECIMENOrdering Facility: [facility] Address: [address] [place] [address] Performed By: #### 6 6121-5 ####[facility] LABCLIA [id number] [address] OF [facility] LABORATORYCLIA [id number] [address] FINAL DIAGNOSIS Normal [facility] Comment on above: Order Comment: [place] cunningham Type: TISSUE SPECIMENOrdering Facility: [facility] Address: [address] [place] [address] Result Comment: A. P ossible left superior parathyroid, excision: - One lymph node, negative for metastasis (0/1). - Fragment of benign thyroid tissue. - No parathyroid identified. B. Thyroid, total thyroidectomy: - Multiple foci of papillary thyroid carcinoma: Papillary thyroid carcinoma, tall cell subtype with conventional architecture, 3.8 cm, involving left lower lobe and isthmus. 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 - Four lymph nodes, negative for metastasis (0/4). 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 RON May 27, 2025 at 1332 EDT Performed By: #### 6 6121-5 ####[facility] LABCLIA [id number] [address] LABORATORYCLIA [id number] [address] OF [facility] FINAL PERFORMING LAB Normal [facility] Comment on above: Order Comment: Speci men Type: TISSUE SPECIMENOrdering Facility: [facility] Address: [address] [place] [address] Result Comment: Diag nostic interpretation performed at: [facility], [address] [place] [address] CLIA# [id number] Penology Professor: Stewart Winn MD Performed By: #### 6 6121-5 ####[facility] LABCLIA [id number] [address] LABORATORYCLIA [id number] [address] GROSS DESCRIPTION Normal [facility] Comment on above: Order Comment: Speci men Type: TISSUE SPECIMENOrdering Facility: [facility] Address: [address] [place] [address] Result Comment: A. S oft Tissue (Not otherwise specified) Received fresh for intraoperative evaluation and labeled "soft tissue" is a single piece of soft orr-pink tissue measuring 0.6 x 0.3 x 0.4 cm and weighing 0.042 g. The specimen is entirely submitted for frozen section evaluation in FSA1. Gross examination performed at [facility], [address], [place] [address]. JR 05/21/25 11:51 AM B. Thyroid, Total, Thyroidectomy Labeled: ???Total thyroid; limited central neck; stitch right superior lobe??? Received: In formalin Specimen type: Total thyroidectomy with attached attachment nodes Oriented: Yes, stitch right superior lobe Weight: 31.1 grams Size: 9.5 x 4.0 x 2.0 cm Right lobe: 4.8 x 3.5 x 2.0cm Left lobe: 4.8 x 4.5 x 1.5 cm. Isthmus: 3.0 x 2.0 x 0.8 cm Ink code: Black - External surface of the right lobe Blue - External surface of the left lobe [place] - External surface of isthmus Sectioning: The right and left lobes are serially sectioned from superior to inferior. The isthmus is serially sectioned from right to left. Number of discrete nodules: 3 Nodule #1 Location: Right middle lobe Size: 0.9 x 0.7 x 0.5 cm Description: Ill-defined, orr-white, firm and calcified Gross extrathyroidal extension: No Nodule #2 Location: Left lower lobe into isthmus Size: 3.8 x 2.0 x 1.5 cm Description: Ill-defined, orr-white firm and focally calcified Gross extrathyroidal extension: No Nodule #3 Location: Left upper lobe Size: 1.2 x 0.5 x 0.3 cm Description: Ill-defined, orr-white, firm Gross extrathyroidal extension: No Background thyroid parenchyma: Orr-brown, homogenous Attached skeletal muscle: Not identified Attached lymph nodes: Yes, 2 measuring 0.8 x 0.5 x 0.3 and 1.5 x 0.5 x 0.2 cm Attached parathyroid: Not identified Gross photograph: Yes Cassette Code: B1-B2 nodule #1, right middle lobe, entirely B3-B6 nodule #2, left lower lobe/isthmus, representatively B7-B8 nodule #3, left upper lobe, entirely B9 background parenchyma B10 lymph node candidates, in toto Gross examination performed at [facility], [address] [place] [address] MSSuresh/MATEO 05/22/25 9:55 AM Additional sections are submitted as follows: B11-B16 remainder of nodule #2 Gross examination performed at [facility], [address] [place] [address] MSL/MATEO 05/24/25 1:59 PM Performed By: #### 6 6121-5 ####[facility] LABCLIA [id number] [address] LABORATORYCLIA [id number] [address] INTRAOPERATIVE DIAGNOSIS Normal [facility] Comment on above: Order Comment: Speci men Type: TISSUE SPECIMENOrdering Facility: [facility] Address: [address] [place] [address] Result Comment: A. S oft Tissue (Not otherwise specified) FSA1: One lymph node negative for carcinoma and thyroid tissue Dr. Mar Intraoperative diagnosis performed at [facility], [address] [place] [address] CLIA# [id number] Performed By: #### 6 6121-5 ####[facility] LABCLIA [id number] [address] LABORATORYCLIA [id number] [address] SYNOPTIC REPORT THYROID GLAND Normal [facility] Comment on above: Order Comment: Speci men Type: TISSUE SPECIMENOrdering Facility: [facility] Address: [address] [place] [address] Result Comment: THYR OID GLAND: RESECTION - All Specimens 8th Edition - Protocol posted: 11/03/2022 CLINICAL Preoperative Biopsy Diagnosis: Papillary thyroid carcinoma on needle biopsy, immunostain for BRAF positive SPECIMEN Procedure: Total thyroidectomy TUMOR Tumor Focality: Multifocal Tumor Characteristics: Tumor Site: Left lobe Tumor Site: Isthmus Tumor Size: Greatest Dimension (Centimeters): 3.8 cm Histologic Tumor Types and Subtypes: : Papillary carcinoma, tall cell subtype Tumor Proliferative Activity: Mitotic Rate: Less than 3 mitoses per 2mm2 : 2 mitoses per 2 mm2 Tumor Necrosis: Not identified Angioinvasion (vascular invasion): Not identified Lymphatic Invasion: Not identified Perineural Invasion: Not identified Extrathyroidal Extension: Margins involved by the tumor, no microscopic extrathyroidal extension (strap muscle invasion) is noted in the sections examined, and no clinical (intraoperative and / or radiologic) or macroscopic evidence of extrathyroidal extension Margin Status: Carcinoma present at margin Margin(s) Involved by Carcinoma: Left lobe REGIONAL LYMPH NODES Regional Lymph Node Status: : All regional lymph nodes negative for tumor Number of Lymph Nodes Examined: 5 Saleem Level(s) Examined: Level pTNM CLASSIFICATION (AJCC 8th Edition) Reporting of pT, pN, and (when applicable) pM categories is based on information available to the pathologist at the time the report is issued. As per the AJCC (Chapter 1, 8th Ed.) it is the managing physician s responsibility to establish the final pathologic stage based upon all pertinent information, including but potentially not limited to this pathology report. pT Category: pT2 T Suffix: (m) pN Category: pN0a ADDITIONAL FINDINGS Additional Findings: Follicular nodular disease (Thyroid follicular nodular disease) Additional Findings: Thyroiditis: Chronic lymphocytic thyroiditis Performed By: #### 6 6121-5 ####[facility] LABCLIA [id number] [address] LABORATORYCLIA [id number] [address] Robin 05-15-2025 CNPN Telephone (OTOLMN) DL PARSONS ([id number]) 1945 F NFR Date Time Provider Department 05/15/25 ARTHUR LUND During your visit today, we recorded the following information about you: Suzy Smiley 05/15/2025 3:35 PM Signed Received call from patient advising that she has been sick with sinus infection for the past week, she has been taking Mucinex and her PCP prescribed azithromyacin which she will be finishing on Tuesday. Patient stated that she hopes this does not interfere with her surgery scheduled for with Dr. Lund. Please call patient at [phone] Suzy Smiley May 15, 2025 3:34 PM Evy Mckeon, RN 05/16/2025 10:00 AM Signed Called and spoke with patient provided message as stated below.Patient verbalized understanding. Please let her know she should be fine provided no fever present Allergies As of Date: 05/15/2025 Noted Allergy Reaction CITRACAL (CALCIUM CITRATE) 12/25/2009 14 - Other: See Comments Comments: constipation PRAVASTATIN 04/13/2013 14 - Other: See Comments Comments: Achy joints, legs felt "like lead" PENICILLINS 05/13/2005 2 - Rash SULFA (SULFONAMIDE ANTIBIOTICS) 05/13/2005 2 - Rash ZOLOFT (SERTRALINE HCL) 05/14/2005 2 - Rash Date Reviewed: 04/23/2025 Reviewed by: Evy Mckeon, RN - Fully Assessed Reason for Visit: Patient Update [1234] Cmt: Sinus Infection Prescriptions as of 05/16/2025 - ferrous sulfate 325 mg (65 mg iron) tablet Take 1 tablet by mouth every other day. - ARNUITY ELLIPTA 100 mcg/actuation inhaler Inhale 2 puffs as instructed once daily. - blood sugar diagnostic (ACCU-CHEK MIMI PLUS TEST STRP) test strip Test blood sugar(s) 1 time daily and as needed for symptoms of high or low sugar. Dx: Type 2 DM - Controlled E11.9 Insulin: No - Lancets lancets Test blood sugar(s) 1 x daily and as needed. Dx: E11.9. Insulin: No - amLODIPine (NORVASC) 10 mg tablet Take 1 tablet by mouth once daily. - Irbesartan-Hydrochlorothiazid e 300-12.5 mg per tablet Take 1 tablet by mouth once daily. replaces losartan hctz - atorvastatin (LIPITOR) 10 mg tablet Take 1 tablet by mouth once daily. - cholecalciferol, Vitamin D3, (VITAMIN D3) 1,250 mcg (50,000 unit) cap capsule Take 1 capsule by mouth one time a week. - Lancing Device with Lancets (ACCU-CHEK SOFT DEV LANCETS) Check sugars daily and as needed. E11.9 DM type 2, Insulin: No - levothyroxine (LEVOXYL) 75 mcg tablet Take 1 tablet by mouth once daily. - lansoprazole (PREVACID) 30 mg capsule Take one capsule every other day. - metoprolol tartrate, short acting, (LOPRESSOR) 25 mg tablet Take 1 tablet by mouth twice daily. - potassium chloride SR (MICRO-K) 8 mEq cpER Take 1 capsule by mouth twice daily. - metFORMIN (GLUCOPHAGE) 500 mg tablet Take 2 tablets by mouth twice daily with meals. - albuterol HFA (PROVENTIL HFA, VENTOLIN HFA) 90 mcg/actuation inhaler Inhale 2 Puffs as instructed four times daily. - blood sugar diagnostic (BLOOD GLUCOSE TEST) test strip Test blood sugar(s) 1 time daily and as needed for symptoms of high or low sugar . Dx: Type 2 DM - Controlled E11.9 Insulin: No - Blood Glucose Control, Normal (CONTOUR CONTROL SOLUTION, NML) Misc Soln As intstructed. Problem List As Of Date 05/15/2025 Noted Resolved Pure hypercholesterolemia [E78.00] 05/14/2005 11/27/2019 Essential hypertension [I10] 05/14/2005 ESOPHAGEAL REFLUX [K21.9] 05/14/2005 DM w/o Complication Type II, Uncontrolled [IMO0*12/08/2007 07/18/2014 MYLES (obstructive sleep apnea) [G47.33] 09/11/2008 Class 2 obesity due to excess calories without *09/11/2008 Abnormal Mammogram [R92.8] 06/19/2009 Vitamin D Deficiency [E55.9] 06/23/2009 Chronic lymphocytic thyroiditis [E06.3] 06/09/2010 Thyroiditis [E06.9] 07/08/2010 Osteopenia [M85.80] 05/21/2011 Hypothyroid [E03.9] 05/21/2011 Asthma [J45.909] 11/01/2011 DM neuropathy, type II diabetes mellitus (HCC) *04/19/2014 11/08/2016 Diabetes mellitus type 2, uncomplicated (HCC) [*07/18/2014 Hemorrhage of gastrointestinal tract, unspecifi*12/05/2014 Dermatochalasis of both upper eyelids [H02.831,*05/12/2018 05/12/2018 Diastolic dysfunction [I51.89] 07/19/2019 Aortic valve sclerosis [I35.8] 07/19/2019 Mixed hyperlipidemia [E78.2] 07/19/2019 Family history of ischemic heart disease [Z82.4*07/19/2019 Chest pain [R07.9] 07/26/2019 04/19/2025 Ataxia [R27.0] 07/26/2019 Moderate persistent asthma without complication* Thyroid mass [E07.9] 03/16/2025 Microcytic anemia [D50.9] 04/09/2025 Hyponatremia [E87.1] 04/09/2025 Abnormal blood electrolyte level [E87.8] 04/09/2025 Dysphagia [R13.10] 04/09/2025 Increased urinary frequency [R35.0] 04/09/2025 Hypoxia [R09.02] 04/09/2025 Dyspnea [R06.00] 04/09/2025 Leg edema [R60.0] 04/09/2025 intermediate (current) use of oral hypoglycemic shayy04/09/2025 Enco (more content not included)... Normal [facility] MR/BMS.Antione 05-14-2025 MR/BMS.IVÁN [facility] [facility] [place] [address] OFFICE VISIT Date of Service: 05/14/25 MR#: [id number] Acct: [id number] Name: DL PARSONS Rep #: [id number] : 1945 Provider: Dr. 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 Accompanied by: Is patient in pain?: No Allergies Penicillins Allergy (Verified 05/14/25 10:00) Rash Sulfa (Sulfonamide Antibiotics) Allergy (Verified 05/14/25 10:00) Rash calcium Adverse Reaction (Verified 05/14/25 10:00) Constipation sertraline Adverse Reaction (Verified 05/14/25 10:00) Constipation Medications ???Medication ???Instructions ???Recorded ???Confirmed ???Type lancets (Accu-Chek Multiclix #100 ea 07/02/20 05/14/25 History Lancet) geriatric multivitamin-min 1 tab PO .QOD 01/28/22 05/14/25 Hi story handicap placard #1 ea 07/06/23 05/14/25 Rx blood-glucose meter #1 ea 07/11/23 05/14/25 Rx lancets (Accu-Chek Softclix #100 ea 07/11/23 05/14/25 Rx Lancets) accu-check avivia control solutions #1 BOTTLE 07/23/24 05/14/25 Rx amlodipine 10 mg tablet 10 mg PO DAILY BLOOD PRESSURE #90 07/23/24 05/14/25 Rx tabs atorvastatin 10 mg tablet 10 mg PO QHS CHOLESTEROL #90 tabs 07/23/24 05/14/25 Rx irbesartan 300 1 tab PO DAILY BP #90 tabs 4 05/14/25 Rx mg-hydrochlorothiazide 12.5 mg tablet (Avalide) levothyroxine 75 mcg tablet 75 mcg PO DAILY THYROID #90 tabs 1 09/23/23 05/14/25 Rx metoprolol tartrate 25 mg tablet 25 mg PO BID BLOOD PRESSURE #180 1 09/23/23 05/14/25 Rx tabs metformin 500 mg tablet See Rx Instructions PO BID 5 05/14/25 Rx DIABETES #270 tabs omeprazole 20 mg capsule,delayed 20 mg PO DAILY 02/18/25 05/14/25 H istory release lansoprazole 30 mg capsule,delayed 30 mg PO DAILY 03/15/25 05/14/25 History release blood sugar diagnostic (Accu-Chek #100 ea 03/27/25 05/14/25 Rx Guide test strips) ferrous sulfate 325 mg (65 mg 325 mg PO Q OTHER DAY 03/27/25 History iron) tablet (FeroSul) fluticasone furoate 100 1 inh inhalation Q24H #90 ea 04/0405/14/25 Rx mcg/actuation blister powder for inhalation albuterol sulfate 90 mcg/actuation 2 inh inhalation 4X/DAY PRN 04/1505/14/25 Rx aerosol inhaler bronchospasm #8.5 grams ergocalciferol (vitamin D2) 1,250 1,250 mcg PO QWEEK #14 caps 05/0305/14/25 Rx mcg (50,000 unit) capsule azithromycin 250 mg tablet See Rx Instructions PO .COMPLEX #6 05/14/25 05/14/25 Rx tabs Have you fallen in the past year?: No PFSH Medical History (Updated 05/14/25 @ 11:[address] Kaitlyn Condon MD) Papillary carcinoma of thyroid Thyroid mass of unclear etiology Family history of dementia Memory deficit Cancer On home oxygen therapy Hypertension Abdominal discomfort Occult blood positive stool Back pain Black stool Acute URI Urinary tract infection Need for influenza vaccination Syncope Wears glasses Post-menopausal Thyroid disease Diabetes Walker as ambulation aid Ambulates with cane Injury of head and neck Gastric reflux Non-smoker History of edema History of echocardiogram History of stress test Bronchitis Shortness of breath on exertion Obesity History of COVID-19 Incontinence Difficulty balancing when standing Knee pain Diarrhea Hemorrhoids COVID-19 Pancreatitis Asthma Arthritis Seasonal allergies Osteopenia Essential hypertension Ascending cholangitis Gallstone pancreatitis Surgical History Hx laparoscopic cholecystectomy History of ERCP History of colonoscopy Cataracts, bilateral H/O: hysterectomy Cholecystectomy planned Family History Mother Diabetes Heart disease Arthritis Hypertension Hyperlipemia Father Colon cancer Heart disease Hypertension Hyperlipemia Cancer prostate Myocardial infarction Social History household members: spouse housing: house Smoking Status: Never smoker alcohol intake: never substance use type: does not use what type of physical activity do you participate in: other details: yard work additional social history: pt denies vaping, denies marijuana use, (more content not included)... Normal [facility] CNOVon 04-23-2025 CNOV Office Visit (OESGMN ) DL PARSONS ([id number]) 1945 F NFR Date Time Provider Department 04/23/25 1:00 PM ARTHUR LUND During your visit today, we recorded the following information about you: Arthur Lund MD 04/24/2025 9:08 AM Signed CC: Patient with thyroid cancer The patient is a 79-year-old female with hypertension, diabetes mellitus, and hypercholesterolemia, presenting for evaluation and preoperative planning of papillary thyroid cancer. E07.9Thyroid mass P98Datwwwajc thyroid carcinoma (HCC)HCC Hypertension Specify and Add E11.9Type 2 diabetes mellitus without complicationsHCC Specify and Add E78.00Hypercholesterolemia Add R13.10Dysphagia Specify and Add Z01.818Encounter for preoperative examination for general surgical procedure Papillary Thyroid Cancer: - Dl D Jaqueline presented to the ED with intense neck swelling, which improved with steroids. - Imaging revealed a mass on bilateral thyroid and centered at the isthmus. - Biopsy confirmed papillary thyroid cancer. - No history of MEN syndromes. - No childhood radiation exposure. - Family history: Sister had a benign thyroid mass removed; grandfather of throat cancer. - No smoking or alcohol use. 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 - Dl denies current voice changes or lymphadenopathy. - Previous scope by Dr. Milian showed normal true vocal cord movement. - Dl reports intermittent dysphonia and dysphagia. General: Patient in wheelchair, no acute distress, alert/oriented, well-nourished, normal communication/understanding, normal voice Head/Face: Normocephalic, atraumatic, no obvious lesions Eyes: Extraocular movements intact bilaterally, pupils equal round/reactive, no spontaneous nystagmus, no conjunctival injection, no ectropion/entropion - Neck: supple, nontender, no cervical lymphadenopathy or masses, full ROM, no erythema/induration - Thyroid: enlarged thyroid mass with central protrusion - Lymphatic: No palpable submandibular lesions, no palpable parotid lesions Labs Tests - Laryngoscopy: Normal true vocal cord movement - Laryngoscopy: Normal true vocal cord movement - Biopsy: Consistent with papillary thyroid cancer Imaging - CT: Mass noted in the bilateral thyroid region centered at the isthmus We discussed your diagnosis of papillary thyroid cancer: - You have been diagnosed with papillary thyroid cancer based on biopsy results and imaging findings. - We reviewed your CT scan, and the findings were consistent with the diagnosis. We discussed the treatment plan: - We recommend proceeding with a total thyroidectomy and central neck dissection to address the cancer. - The risks and benefits of surgery were discussed, including: - Temporary or permanent voice changes. - Potential for hypoparathyroidism. - Risk of bleeding and anesthesia-related complications. - You agreed with the plan to proceed with surgery and had all your questions answered to your satisfaction. Assessment / Plan: Patient with papillary thyroid cancer with probable extrathyroidal extension Recommendation for surgery placed -- risks, benefits, alternatives, personnel discussed Next steps: - We will coordinate scheduling for your surgery. Please await further instructions from our office regarding the date and preoperative preparations. Ace Lund MD Referring Provider: SELF [200] Allergies As of Date: 04/23/2025 Noted Allergy Reaction CITRACAL (CALCIUM CITRATE) 12/25/2009 14 - Other: See Comments Comments: constipation PRAVASTATIN 04/13/2013 14 - Other: See Comments Comments: Achy joints, legs felt "like lead" PENICILLINS 05/13/2005 2 - Rash SULFA (SULFONAMIDE ANTIBIOTICS) 05/13/2005 2 - Rash ZOLOFT (SERTRALINE HCL) 05/14/2005 2 - Rash Date Reviewed: 04/23/2025 Reviewed by: Evy Mckeon RN - Fully Assessed Reason for Visit: New Patient [172] Primary Visit Diagnosis:Thyroid mass [E07.9] Other Visit Diagnosis:Papillary thyroid carcinoma (HCC) [C73] Order(s):SURGICAL REQUEST - ELECTIVE (03/2020) [5929602] Order #: [id number]: 1 XR CHEST 2V FRONTAL/LAT [[id number]] Order #: [id number] FUTURE ECG COMPLETE [ECG01] Order #: [id number] FUTURE REFER TO PACC / [facility] - PREOPERATIVE OPTIMIZATION [1952065] Order #: [id number]: 1 FUTURE COMPLETE BLOOD COUNT [SQCBC] Order #: [id number] FUTURE BASIC METABOLIC PANEL [SQBMP] Order #: [id number] FUTURE Prescriptions as of 04/24/2025 - ferrous sulfate 325 mg (65 mg iron) tablet Take 1 tablet by mouth every other day. - ARNUITY ELLIPTA 100 mcg/actuation inhaler Inhale 2 puffs as instructed once daily. - blood sugar diagnostic (ACCU-CHEK MIMI PLUS TEST STRP) test strip Test blood sugar(s) 1 time daily and as needed for symptoms of high or low sugar. Dx: T (more content not included)... [facility] DL PAR[facility] ([id number]) 1945 F NFR Date Time Provider Department 04/23/25 ARTHUR LUND During your visit today, we recorded the following information about you: Evy Mckeon RN 04/23/2025 1:58 PM Signed AMBULATORY PATIENT EDUCATION NOTE PRE-OP TEACHING TOPIC: SURVIVAL SKILLS: pRE OP PROCEDURE: TOTAL THYROIDECTOMY READINESS TO LEARN COGNITIVE ABILITY: Alert and oriented MOTIVATION TO LEARN: Interested FAMILY SUPPORT: High - Very involved in pt care INSTRUCTION PROVIDED TO: Patient, Family member, and ALENA PATIENT LEARNS BEST BY: Individual Instruction Written Instruction - Hand-outs Verbal Instruction FACTORS AFFECTING LEARNING: None PHYSICAL LIMITATIONS AFFECTING LEARNING: None LEARNING RESPONSE DIAGNOSIS: TOTAL THYROIDECTOMY METHOD OF INSTRUCTION: Individual instruction Written instruction/Handouts Verbal instruction PATIENT / FAMILY RESPONSE: Verbalizes understanding of: PRE-OPERATIVE INSTRUCTIONS-Correct action to take to follow pre-operative instructions FOLLOW-UP PLAN: Patient instructed to call with any further issues SUPPLEMENTAL MATERIAL: Your Surgical Guide REFERRAL (RECOMMENDATION): PAcc Electronically Signed By: Evy Mckeon RN In Department: OTOLARYNGOLOGY Allergies As of Date: 04/23/2025 Noted Allergy Reaction CITRACAL (CALCIUM CITRATE) 12/25/2009 14 - Other: See Comments Comments: constipation PRAVASTATIN 04/13/2013 14 - Other: See Comments Comments: Achy joints, legs felt "like lead" PENICILLINS 05/13/2005 2 - Rash SULFA (SULFONAMIDE ANTIBIOTICS) 05/13/2005 2 - Rash ZOLOFT (SERTRALINE HCL) 05/14/2005 2 - Rash Date Reviewed: 04/23/2025 Reviewed by: Evy Mckeon, RN - Fully Assessed Reason for Visit: Patient Education [91] Cmt: Pre op Prescriptions as of 04/23/2025 - ferrous sulfate 325 mg (65 mg iron) tablet Take 1 tablet by mouth every other day. - ARNUITY ELLIPTA 100 mcg/actuation inhaler Inhale 2 puffs as instructed once daily. - blood sugar diagnostic (ACCU-CHEK MIMI PLUS TEST STRP) test strip Test blood sugar(s) 1 time daily and as needed for symptoms of high or low sugar. Dx: Type 2 DM - Controlled E11.9 Insulin: No - Lancets lancets Test blood sugar(s) 1 x daily and as needed. Dx: E11.9. Insulin: No - amLODIPine (NORVASC) 10 mg tablet Take 1 tablet by mouth once daily. - Irbesartan-Hydrochlorothiazid e 300-12.5 mg per tablet Take 1 tablet by mouth once daily. replaces losartan hctz - atorvastatin (LIPITOR) 10 mg tablet Take 1 tablet by mouth once daily. - cholecalciferol, Vitamin D3, (VITAMIN D3) 1,250 mcg (50,000 unit) cap capsule Take 1 capsule by mouth one time a week. - Lancing Device with Lancets (ACCU-CHEK SOFT DEV LANCETS) Check sugars daily and as needed. E11.9 DM type 2, Insulin: No - levothyroxine (LEVOXYL) 75 mcg tablet Take 1 tablet by mouth once daily. - lansoprazole (PREVACID) 30 mg capsule Take one capsule every other day. - metoprolol tartrate, short acting, (LOPRESSOR) 25 mg tablet Take 1 tablet by mouth twice daily. - potassium chloride SR (MICRO-K) 8 mEq cpER Take 1 capsule by mouth twice daily. - metFORMIN (GLUCOPHAGE) 500 mg tablet Take 2 tablets by mouth twice daily with meals. - albuterol HFA (PROVENTIL HFA, VENTOLIN HFA) 90 mcg/actuation inhaler Inhale 2 Puffs as instructed four times daily. - blood sugar diagnostic (BLOOD GLUCOSE TEST) test strip Test blood sugar(s) 1 time daily and as needed for symptoms of high or low sugar . Dx: Type 2 DM - Controlled E11.9 Insulin: No - Blood Glucose Control, Normal (CONTOUR CONTROL SOLUTION, NML) Misc Soln As intstructed. Problem List As Of Date 04/23/2025 Noted Resolved Pure hypercholesterolemia [E78.00] 05/14/2005 11/27/2019 Essential hypertension [I10] 05/14/2005 ESOPHAGEAL REFLUX [K21.9] 05/14/2005 DM w/o Complication Type II, Uncontrolled [IMO0*12/08/2007 07/18/2014 MYLES (obstructive sleep apnea) [G47.33] 09/11/2008 Class 2 obesity due to excess calories without *09/11/2008 Abnormal Mammogram [R92.8] 06/19/2009 Vitamin D Deficiency [E55.9] 06/23/2009 Chronic lymphocytic thyroiditis [E06.3] 06/09/2010 Thyroiditis [E06.9] 07/08/2010 Osteopenia [M85.80] 05/21/2011 Hypothyroid [E03.9] 05/21/2011 Asthma [J45.909] 11/01/2011 DM neuropathy, type II diabetes mellitus (HCC) *04/19/2014 11/08/2016 Diabetes mellitus type 2, uncomplicated (HCC) [*07/18/2014 Hemorrhage of gastrointestinal tract, unspecifi*12/05/2014 Dermatochalasis of both upper eyelids [H02.831,*05/12/2018 05/12/2018 Diastolic dysfunction [I51.89] 07/19/2019 Aortic valve sclerosis [I35.8] 07/19/2019 Mixed hyperlipidemia [E78.2] 07/19/2019 Family history of ischemic heart disease [Z82.4*07/19/2019 Chest pain [R07.9] 07/26/2019 04/19/2025 Ataxia [R27.0] 07/26/2019 Moderate persistent asthma without complication* Thyroid mass [E07 (more content not included)... Normal [facility] CBC panel Auto (Bld)on 04-19 Erythrocyte distribution width (RBC) [Ratio] 15.5 % High 11.5-15.0 [facility] Comment on above: Order Comment: Speci men Type: BLOOD SPECIMENOrdering Facility: [facility] Address: [address] [place] [address] Performed By: #### 5 8410-2 ####[facility] LABCLIA [id number] [address] [place] Hematocrit (Bld) [Volume fraction] 37.7 % Normal 36.0-46.0 [facility] Comment on above: Order Comment: Speci men Type: BLOOD SPECIMENOrdering Facility: [facility] Address: [address] [place] [address] Performed By: #### 5 8410-2 ####[facility] LABCLIA [id number] [address] [place] Hemoglobin (Bld) [Mass/Vol] 12.5 g/dL Normal 11.5-15.5 [facility] Comment on above: Order Comment: Speci men Type: BLOOD SPECIMENOrdering Facility: [facility] Address: [address] [place] [address] Performed By: #### 5 8410-2 ####[facility] LABCLIA [id number] [address] [place] MCH (RBC) [Entitic mass] 27.2 pg Normal 26.0-34.0 [facility] Comment on above: Order Comment: Speci men Type: BLOOD SPECIMENOrdering Facility: [facility] Address: [address] [place] [address] Performed By: #### 5 8410-2 ####[facility] LABCLIA [id number] [place] [id number] [place] MCHC (RBC) [Mass/Vol] 33.2 g/dL Normal 30.5-36.0 [facility] Comment on above: Order Comment: Speci men Type: BLOOD SPECIMENOrdering Facility: [facility] Address: [address] [place] [address] Performed By: #### 5 8410-2 ####[facility]KAYK[facility] LABCLIA [id number] [address] [place] MCV (RBC) [Entitic vol] 82.0 fL Normal 80.0-100.0 [facility] Comment on above: Order Comment: Speci men Type: BLOOD SPECIMENOrdering Facility: [facility] Address: [address] [place] [address] Performed By: #### 5 8410-2 ####[facility] LABCLIA [id number] [address] [place] Nucleated RBC (Bld) [#/Vol] 10*3/uL Normal <0.01 [facility] Comment on above: Order Comment: Speci men Type: BLOOD SPECIMENOrdering Facility: [facility] Address: [address] [place] [address] Performed By: #### 5 8410-2 ####[facility] LABCLIA [id number] [address] [place] Platelet mean volume (Bld) [Entitic vol] 9.2 fL Normal 9.0-12.7 [facility] Comment on above: Order Comment: Speci men Type: BLOOD SPECIMENOrdering Facility: [facility] Address: [address] [place] [address] Performed By: #### 5 8410-2 ####[facility] LABCLIA [id number] [place] [address] [place] Platelets (Bld) [#/Vol] 360 10*3/uL Normal 150-400 [facility] Comment on above: Order Comment: Speci men Type: BLOOD SPECIMENOrdering Facility: [facility] Address: [address] [place] [address] Performed By: #### 5 8410-2 ####[facility] LABCLIA [id number] [place] [id number] [place] RBC (Bld) [#/Vol] 4.60 10*6/uL Normal 3.90-5.20 [facility] Comment on above: Order Comment: Speci men Type: BLOOD SPECIMENOrdering Facility: [facility] Address: [address] [place] [address] Performed By: #### 5 8410-2 ####[facility] LABCLIA [id number] [place] [id number] [place] WBC (Bld) [#/Vol] 9.63 10*3/uL Normal 3.70-11.00 [facility] Comment on above: Order Comment: Speci men Type: BLOOD SPECIMENOrdering Facility: [facility] Address: [address] [place] [address] Performed By: #### 5 8410-2 ####[facility]MARIELA [facility] LABCLIA [id number] [address] STATES OF [facility] CONFIRM BLOOD TYPEon 025 ABO A Normal [facility] Comment on above: Order Comment: Speci men Type: BLOOD SPECIMENOrdering Facility: [facility] Address: [address] [place] [address] Performed By: #### C ONABO ####CC MAIN BLOOD BANKCLIA [id number] [place] [address] [place] Rh Nom (Bld) Positive Normal [facility] Comment on above: Order Comment: Speci men Type: BLOOD SPECIMENOrdering Facility: [facility] Address: [address] [place] [address] Performed By: #### C ONABO ####CC MAIN BLOOD BANKCLIA [id number] [place] [address] [place] Comprehensive metabolic 2000 panelon 04-19-2025 Albumin [Mass/Vol] 4.1 g/dL Normal 3.9-4.[address] [facility] Comment on above: Order Comment: Speci men Type: BLOOD SPECIMENOrdering Facility: [facility] Address: [address] [place] [address] Performed By: #### 2 4323-8 ####[facility] LABCLIA [id number] [place] [address] [place] ALP [Catalytic activity/Vol] 101 U/L Normal 34-123 [facility] Comment on above: Order Comment: Speci men Type: BLOOD SPECIMENOrdering Facility: [facility] Address: [address] [place] [address] Performed By: #### 2 4323-8 ####[facility] LABCLIA [id number] [address] [place] ALT [Catalytic activity/Vol] 10 U/L Normal 7-38 [facility] Comment on above: Order Comment: Speci men Type: BLOOD SPECIMENOrdering Facility: [facility] Address: [address] [place] [address] Performed By: #### 2 4323-8 ####[facility] LABCLIA [id number] [place] [address] [place] Anion gap [Moles/Vol] 15 mmol/L Normal 8-15 [facility] Comment on above: Order Comment: Speci men Type: BLOOD SPECIMENOrdering Facility: [facility] Address: [address] [place] [address] Performed By: #### 2 4323-8 ####[facility] LABCLIA [id number] [place] [address] [place] AST [Catalytic activity/Vol] 11 U/L Low 13-35 [facility] Comment on above: Order Comment: Speci men Type: BLOOD SPECIMENOrdering Facility: [facility] Address: [address] [place] [address] Performed By: #### 2 4323-8 ####[facility] LABCLIA [id number] [place] [address] [place] Bilirubin [Mass/Vol] 1.1 mg/dL Normal 0.2-1.3 [facility] Comment on above: Order Comment: Speci men Type: BLOOD SPECIMENOrdering Facility: [facility] Address: [address] [place] [address] Performed By: #### 2 4323-8 ####[facility] LABCLIA [id number] [place] [address] [place] Calcium [Mass/Vol] 9.7 mg/dL Normal 8.5-10.[address] [facility] Comment on above: Order Comment: Speci men Type: BLOOD SPECIMENOrdering Facility: [facility] Address: [address] [place] [address] Performed By: #### 2 4323-8 ####[facility] LABCLIA [id number] [place] [address] [place] Chloride [Moles/Vol] 95 mmol/L Low 98-107 [facility] Comment on above: Order Comment: Speci men Type: BLOOD SPECIMENOrdering Facility: [facility] Address: [address] [place] [address] Performed By: #### 2 4323-8 ####[facility] LABCLIA [id number] [place] [id number] [place] CO2 [Moles/Vol] 23 mmol/L Normal 22-30 [facility] Comment on above: Order Comment: Speci men Type: BLOOD SPECIMENOrdering Facility: [facility] Address: [address] [place] [address] Performed By: #### 2 4323-8 ####[facility] LABCLIA [id number] [place] [address] [place] Creatinine [Mass/Vol] 0.64 mg/dL Normal 0.58-0.96 [facility] Comment on above: Order Comment: Speci men Type: BLOOD SPECIMENOrdering Facility: [facility] Address: [address] [place] [address] Performed By: #### 2 4323-8 ####[facility] LABCLIA [id number] [place] [id number] [place] eGFRcr SerPlBld CKD-EPI 2020 91 mL/min/1.73m??? Normal >=60 [facility] Comment on above: Order Comment: [place] men Type: BLOOD SPECIMENOrdering Facility: [facility] Address: [address] [place] [address] Result Comment: Sofy mated Glomerular Filtration Rate (eGFR) is calculated using the 2020 CKD-EPI creatinine equation. This equation utilizes serum creatinine, sex, and age as parameters. The creatinine assay has traceable calibration to isotope dilution-mass spectrometry. Refer to KDIGO guidelines for clinical interpretation. In patients with unstable renal function, e.g. those with acute kidney injury, the eGFR may not accurately reflect actual GFR. Performed By: #### 2 4323-8 ####[facility] LABCLIA [id number] [place] [address] [place] Glucose [Mass/Vol] 133 mg/dL High 74-[address] [facility] Comment on above: Order Comment: [place] cunningham Type: BLOOD SPECIMENOrdering Facility: [facility] Address: [address] [place] [address] Result Comment: The [place] Diabetes [employer] (ADA) provides guidance for cutoff values for fasting glucose and random glucose. The ADA defines fasting as no caloric intake for at least 8 hours. Fasting plasma glucose results between 100 to 125 mg/dL indicate increased risk for diabetes (prediabetes). Fasting plasma glucose results greater than or equal to 126 mg/dL meet the criteria for diagnosis of diabetes. In the absence of unequivocal hyperglycemia, results should be confirmed by repeat testing. In a patient with classic symptoms of hyperglycemia or hyperglycemic crisis, random plasma glucose results greater than or equal to 200 mg/dL meet the criteria for diagnosis of diabetes. Reference: Standards of Medical Care in Diabetes 2016, [place] [employer]. Diabetes Care. 2016.39(Suppl 1). Performed By: #### 2 4323-8 ####[facility] LABCLIA [id number] [place] [address] [place] Potassium [Moles/Vol] 3.8 mmol/L Normal 3.7-5.1 [facility] Comment on above: Order Comment: Speci men Type: BLOOD SPECIMENOrdering Facility: [facility] Address: [address] [place] [address] Performed By: #### 2 4323-8 ####[facility] LABCLIA [id number] [place] [id number] [place] Protein [Mass/Vol] 7.0 g/dL Normal 6.3-8.[address] [facility] Comment on above: Order Comment: Speci men Type: BLOOD SPECIMENOrdering Facility: [facility] Address: [address] [place] [address] Performed By: #### 2 4323-8 ####[facility] LABIA [id number] [place] [address] [place] Sodium [Moles/Vol] 133 mmol/L Low 136-[address] [facility] Comment on above: Order Comment: Speci men Type: BLOOD SPECIMENOrdering Facility: [facility] Address: [address] [place] [address] Performed By: #### 2 4323-8 ####[facility] LABIA [id number] [place] [id number] [place] Urea nitrogen [Mass/Vol] 8 mg/dL Normal 7-21 [facility] Comment on above: Order Comment: Speci men Type: BLOOD SPECIMENOrdering Facility: [facility] Address: [address] [place] [address] Performed By: #### 2 4323-8 ####[facility] LABIA [id number] [place] [id number] [place] ECG COMPLETEon 04-19-2025 ECG COMPLETE Ventricular Rate : 6 4 BPM Atrial Rate : 64 BPM P-R Interval : 172 ms QRS Duration : 86 ms Q-T Interval : 414 ms QTC Calculation(Bazett) : 427 ms Calculated P [place] : 44 degrees Calculated R [place] : -9 degrees Calculated T [place] : 61 degrees NORMAL SINUS RHYTHM POSSIBLE ANTERIOR MYOCARDIAL INFARCTION , AGE UNDETERMINED ABNORMAL ECG Confirmed by MD ABREU QARAB ([id number]) on 04/22/2025 12:45:44 PM NAME : DL PARSONS PID : [id number] : 1945 Gender : Female Race : ORD : [id number] Procedure Date : Apr 19 2025 10:09:31 Edit Date : Apr 22 2025 12:45:53 Diagnosis: NORMAL SINUS RHYTHM POSSIBLE ANTERIOR MYOCARDIAL INFARCTION , AGE UNDETERMINED ABNORMAL ECG Confirmed by MD ABREU QARAB ([id number]) on 04/22/2025 12:45:44 PM Test Reason : Location : 135 : [facility] Overread By : MD ABREU QARAB Edited By : MD ABREU QARAB Referred By : ARTHUR LUND Acquired by : FREDDY Rivers Normal [facility] HISTORY PHYSICALon HISTORY PHYSICAL HNO ID: [id number] Author: HEMALATHA TELLEZ PA-C Service: ? Author Type: Physician Energy Sales Broker Type: H&P Filed: 04/22/2025 09:01 Note Text: [facility] HISTORY AND PHYSICAL EXAMINATION SERVICE DATE: 04/19/2025 SERVICE TIME: 10:48 AM PRIMARY CARE PHYSICIAN: Kaitlyn Condon MD Assessment Patient has the following medical conditions which may affect betina-operative course: Class 2 obesity due to excess calories without serious comorbidity with body mass index (BMI) of 36.0 to 36.9 in adult Assessment: Body mass index is 36.64 kg/m?. Microcytic anemia Assessment: CBC pending. Latest Ref Rng AND Units 07/26/2019 03/10/2020 03/17/2025 CBC WBC 3.70 - 11.00 k/uL 8.73 7.95 8.90 RBC 3.90 - 5.20 m/uL 4.58 4.77 4.26 Hemoglobin 11.5 - 15.5 g/dL 12.3 12.9 11.2 Hematocrit 36.0 - 46.0 % 37.9 41.9 34.1 MCV 80.0 - 100.0 fL 82.8 87.8 80.0 MCH 26.0 - 34.0 pg 26.9 27.0 26.3 MCHC 30.5 - 36.0 g/dL 32.5 30.8 32.8 RDW-CV 11.5 - 15.0 % 14.7 14.6 15.5 Platelet Count 150 - 400 k/uL 400 436 314 MPV 9.0 - 12.7 fL 9.6 10.3 9.6 Baso% % 0.3 Abs Neut (ANC) 1.45 - 7.50 k/uL 7.37 Abs Lymph 1.00 - 4.00 k/uL 0.92 Abs [place] <0.87 k/uL 0.40 Abs Eosin <0.46 k/uL 0.13 Abs Baso <0.11 k/uL 0.03 NRBC /100 WBC 0.0 Hypothyroid Assessment: On levothyroxine. TSH Date Value Ref Range Status 03/17/2025 1.120 0.270 - 4.200 mIU/L Final MYLES (obstructive sleep apnea) Assessment: Unable to tolerate CPAP. Uses supplemental O2 QHS, 2.5L NC. Moderate persistent asthma without complication Assessment: Stable, uses Arnuity daily and albuterol PRN. Managed by PCP. Pt reports she uses albuterol more frequently with hot/humid weather. Pt was instructed after discharge last month to use albuterol daily prior to using Arnuity, which she has been doing up until 2 days ago. She reports that she has not needed albuterol for the past two days. Pt reports that she is able to climb a flight of stairs at home, but has to stop after 3 steps due to leg fatigue/weakness, denies Shortness of Breath. Lungs CTAB, SpO2 97% on RA. Mixed hyperlipidemia Assessment: On Lipitor. Essential hypertension Assessment: Controlled on current medication regimen, BP today 144/76. Last 14 BP Last 14 Encounter BP Readings: Date: BP: 04/19/2025 144/76 03/20/2025 135/70 03/15/2025 125/83 03/12/2020 118/70 11/27/2019 139/86 09/11/2019 134/71[Home wrist cuff[ 08/27/2019 132/70 08/23/2019 150/88 07/25/2019 133/78 07/25/2019 172/92 07/19/2019 144/76 07/02/2019 148/84 03/02/2019 128/68 12/14/2018 138/70 ESOPHAGEAL REFLUX Assessment: Stable, sx managed on Prevacid PRN. Diabetes mellitus type 2, uncomplicated (HCC) Assessment: Compliant on metformin. Does monitor BG at home, FBS ~140-150s. A1C 7.5% 03/2025. Managed by PCP. Hemoglobin A1C (%) Date Value 03/17/2025 7.5 03/10/2020 7.1 07/26/2019 7.0 06/27/2019 6.9 02/21/2019 6.8 11/24/2018 6.9 Leg edema Assessment: Pt reports edema by the end of the day. Swelling is controlled with compression stockings. Trace edema BLE on exam today. ANESTHESIA FINDINGS: Intubation History: No history of difficult intubation. No abnormal airway history Significant Anesthesia Considerations: Pt reports slow emergence from cholecystectomy 2019. potential slow emergence Airway History: No history of difficult airway No abnormal airway history [place] Activity Status Index: METS: Walk indoors, such as around the house (1.75 METs) Do light work around the house, such as dusting or washing dishes (2.70 METs) Take care of self; that is eating, dressing, bathing, using the toilet (2.75 METs) Walk a block or two on level ground (2.75 METs) Do moderate work around the house, such as vacuuming, sweeping floors, or carrying in groceries (3.50 METs) Climb a flight of stairs or walk up a hill (5.50 METs) DASI Score: 18.95 (Limited due to weakness in legs, has climbed the stairs in her house recently and has to stop after ~3 steps due to fatigue in her legs) Patient denies any chest pain or undue shortness of breath with the above physical activity. Clinical Frailty Scale: 4. Apparently vulnerable STOP-Bang Score: STOP-Bang Score: (+MYLES - unable to tolerate CPAP, uses 2.5L O2 QHS) [id number] Score: Age: >=75 Sex: female CHF history: No Hypertension history: Yes Stroke/TIA/thromboembolism history: No Vascular disease history: No Diabetes history: Yes [id number] Score: 5 I - PHYSICAL EVALUATION AIRWAY Patient intubated: No. Tracheostomy tube not present Mallampati: III. TM distance: >3 FB. Neck ROM: limited extension. Mouth openin FB. Short neck: no. Thick neck: no Lip Bite Test: I Microretrognathia/Micronagthi a/Recessed Chin: No DENTAL Dental findings: teeth intact and bridge. II - ANESTHESIA PLAN Anesthetic Plan: other Anesthetic plan additional comments: *PAC (more content not included)... Normal [facility] TYPE AND SCREEN,30 DAYon ABO A Normal [facility] Comment on above: Order Comment: Speci men Type: BLOOD SPECIMENOrdering Facility: [facility] Address: [address] [place] [address] Performed By: #### T SCR30 ####[facility] [id number] [address] Rh Nom (Bld) Positive Normal [facility] Comment on above: Order Comment: Speci men Type: BLOOD SPECIMENOrdering Facility: [facility] Address: [address] [place] [address] Performed By: #### T SCR30 ####CC MAIN BLOOD BANKCLIA [id number] [address] OF [facility] XR CHEST 2V FRONTAL/LATon XR CHEST 2V FRONTAL/LAT * * *Final Report* * * DATE OF EXAM: Apr 19 2025 12:13PM STX [id number] - XR CHEST 2V FRONTAL/LAT / PROCEDURE REASON: Preoperative examination * * * * Physician Interpretation * * * * EXAMINATION: CHEST RADIOGRAPH (2 VIEW FRONTAL and LATERAL) CLINICAL HISTORY: Preoperative examination MQ: XC2_6 EXAM DATE/TIME: 04/19/2025 12:13 PM COMPARISON: 07/25/2019 RESULT: Lines, tubes, and devices: None. Lungs and pleura: No consolidation. No lung mass. No pleural effusion. No pneumothorax. Cardiomediastinal silhouette: Severe thoracolumbar scoliosis, convex to the right in the midthoracic region, and to the left in the lumbar region. Normal cardiac size. Bones and soft tissues: No rib fractures identified IMPRESSION: No acute radiographic abnormality. Thoracolumbar scoliosis Rail Operator[facility] Transcribe Date/Time: Apr 19 2025 2:18P Dictated by : STEWART TURK MD This examination was interpreted and the report reviewed and electronically signed by: STEWART TURK MD on Apr 19 2025 2:20PM EST [id number] Normal [facility] XR Chest PA and Lateralon IMPRESSION: No acute radiographic abnormality. Thoracolumbar scoliosis Rail Operator: [facility] Transcribe Date/Time: Apr 19 2025 2:18P Dictated by : STEWART TURK MD This examination was interpreted and the report reviewed and electronically signed by: STEWART TURK MD on Apr 19 2025 2:20PM EST DIVISION OF RADIOLOGY * * *Final Report* * * DATE OF EXAM: Apr 19 2025 12:13PM STX [id number] - XR CHEST 2V FRONTAL/LAT / PROCEDURE REASON: Preoperative examination * * * * Physician Interpretation * * * * EXAMINATION: CHEST RADIOGRAPH (2 VIEW FRONTAL & LATERAL) CLINICAL HISTORY: Preoperative examination MQ: XC2_6 EXAM DATE/TIME: 04/19/2025 12:13 PM COMPARISON: 07/25/2019 RESULT: Lines, tubes, and devices: None. Lungs and pleura: No consolidation. No lung mass. No pleural effusion. No pneumothorax. Cardiomediastinal silhouette: Severe thoracolumbar scoliosis, convex to the right in the midthoracic region, and to the left in the lumbar region. Normal cardiac size. Bones and soft tissues: No rib fractures identified DIVISION OF RADIOLOGY Provider, [facility] - 04/19/2025 * * *Final Report* * * DATE OF EXAM: Apr 19 2025 12:13PM STX 5291 - XR CHEST 2V FRONTAL/LAT / PROCEDURE REASON: Preoperative examination * * * * Physician Interpretation * * * * EXAMINATION: CHEST RADIOGRAPH (2 VIEW FRONTAL & LATERAL) CLINICAL HISTORY: Preoperative examination MQ: XC2_6 EXAM DATE/TIME: 04/19/2025 12:13 PM COMPARISON: 07/25/2019 RESULT: Lines, tubes, and devices: None. Lungs and pleura: No consolidation. No lung mass. No pleural effusion. No pneumothorax. Cardiomediastinal silhouette: Severe thoracolumbar scoliosis, convex to the right in the midthoracic region, and to the left in the lumbar region. Normal cardiac size. Bones and soft tissues: No rib fractures identified IMPRESSION IMPRESSION: No acute radiographic abnormality. Thoracolumbar scoliosis Rail Operator: ESTRELLITA Transcribe Date/Time: Apr 19 2025 2:18P Dictated by : STEWART TURK MD This examination was interpreted and the report reviewed and electronically signed by: STEWART TURK MD on Apr 19 2025 2:20PM EST [facility] Radiology Study observation (narrative) [facility] XR Chest PA and LateralOrder ed By: Ccf Provider on 04-19-2025 [facility] CNPNon 04-18-2025 CNPN Telephone (PANEST) DL PARSONS ([id number]) 1945 F NFR Date Time Provider Department 04/18/25 CASSY CHAN During your visit today, we recorded the following information about you: Cassy Chan PA-C 04/18/2025 1:51 PM Signed Patient did not show for her PACC appointment. She would like to reschedule for tomorrow, 04/19, 10:30 at [place]. Please reschedule. Thank you. Cassy Allergies As of Date: 04/18/2025 Noted Allergy Reaction CITRACAL (CALCIUM CITRATE) 12/25/2009 14 - Other: See Comments Comments: constipation PRAVASTATIN 04/13/2013 14 - Other: See Comments Comments: Achy joints, legs felt "like lead" PENICILLINS 05/13/2005 2 - Rash SULFA (SULFONAMIDE ANTIBIOTICS) 05/13/2005 2 - Rash ZOLOFT (SERTRALINE HCL) 05/14/2005 2 - Rash Date Reviewed: 04/01/2025 Reviewed by: Patricia Douglas, RN - Fully Assessed Reason for Visit: Appointment [[id number]] Prescriptions as of 04/18/2025 - ferrous sulfate 325 mg (65 mg iron) tablet Take 1 tablet by mouth every other day. - ARNUITY ELLIPTA 100 mcg/actuation inhaler Inhale 2 puffs as instructed once daily. - blood sugar diagnostic (ACCU-CHEK MIMI PLUS TEST STRP) test strip Test blood sugar(s) 1 time daily and as needed for symptoms of high or low sugar. Dx: Type 2 DM - Controlled E11.9 Insulin: No - Lancets lancets Test blood sugar(s) 1 x daily and as needed. Dx: E11.9. Insulin: No - amLODIPine (NORVASC) 10 mg tablet Take 1 tablet by mouth once daily. - Irbesartan-Hydrochlorothiazid e 300-12.5 mg per tablet Take 1 tablet by mouth once daily. replaces losartan hctz - atorvastatin (LIPITOR) 10 mg tablet Take 1 tablet by mouth once daily. - cholecalciferol, Vitamin D3, (VITAMIN D3) 1,250 mcg (50,000 unit) cap capsule Take 1 capsule by mouth one time a week. - Lancing Device with Lancets (ACCU-CHEK SOFT DEV LANCETS) Check sugars daily and as needed. E11.9 DM type 2, Insulin: No - levothyroxine (LEVOXYL) 75 mcg tablet Take 1 tablet by mouth once daily. - lansoprazole (PREVACID) 30 mg capsule Take one capsule every other day. - metoprolol tartrate, short acting, (LOPRESSOR) 25 mg tablet Take 1 tablet by mouth twice daily. - potassium chloride SR (MICRO-K) 8 mEq cpER Take 1 capsule by mouth twice daily. - metFORMIN (GLUCOPHAGE) 500 mg tablet Take 2 tablets by mouth twice daily with meals. - albuterol HFA (PROVENTIL HFA, VENTOLIN HFA) 90 mcg/actuation inhaler Inhale 2 Puffs as instructed four times daily. - blood sugar diagnostic (BLOOD GLUCOSE TEST) test strip Test blood sugar(s) 1 time daily and as needed for symptoms of high or low sugar . Dx: Type 2 DM - Controlled E11.9 Insulin: No - ketoconazole (NIZORAL) 2 % cream Apply 1 application to affected area once daily. Continue 1 week more after rash resolves - Blood Glucose Control, Normal (CONTOUR CONTROL SOLUTION, NML) Misc Soln As intstructed. Problem List As Of Date 04/18/2025 Noted Resolved Pure hypercholesterolemia [E78.00] 05/14/2005 11/27/2019 Essential hypertension [I10] 05/14/2005 ESOPHAGEAL REFLUX [K21.9] 05/14/2005 DM w/o Complication Type II, Uncontrolled [IMO0*12/08/2007 07/18/2014 MYLES (obstructive sleep apnea) [G47.33] 09/11/2008 Class 2 obesity due to excess calories without *09/11/2008 Abnormal Mammogram [R92.8] 06/19/2009 Vitamin D Deficiency [E55.9] 06/23/2009 Chronic lymphocytic thyroiditis [E06.3] 06/09/2010 Thyroiditis [E06.9] 07/08/2010 Osteopenia [M85.80] 05/21/2011 Hypothyroid [E03.9] 05/21/2011 Asthma [J45.909] 11/01/2011 DM neuropathy, type II diabetes mellitus (HCC) *04/19/2014 11/08/2016 Diabetes mellitus type 2, uncomplicated (HCC) [*07/18/2014 Hemorrhage of gastrointestinal tract, unspecifi*12/05/2014 Dermatochalasis of both upper eyelids [H02.831,*05/12/2018 05/12/2018 Diastolic dysfunction [I51.89] 07/19/2019 Aortic valve sclerosis [I35.8] 07/19/2019 Mixed hyperlipidemia [E78.2] 07/19/2019 Family history of ischemic heart disease [Z82.4*07/19/2019 Chest pain [R07.9] 07/26/2019 Ataxia [R27.0] 07/26/2019 Moderate persistent asthma without complication* Thyroid mass [E07.9] 03/16/2025 Microcytic anemia [D50.9] 04/09/2025 Hyponatremia [E87.1] 04/09/2025 Abnormal blood electrolyte level [E87.8] 04/09/2025 Dysphagia [R13.10] 04/09/2025 Increased urinary frequency [R35.0] 04/09/2025 Hypoxia [R09.02] 04/09/2025 Dyspnea [R06.00] 04/09/2025 Leg edema [R60.0] 04/09/2025 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 Milian would give her a call regarding her biopsy and says she did not hear back. She is requesting a call back to go over her results. Her phone number is [phone]. Allergies As of Date: 04/09/2025 Noted Allergy Reaction CITRACAL (CALCIUM CITRATE) 12/25/2009 5 - Intolerance Comments: constipation PENICILLINS 05/13/2005 2 - Rash PRAVASTATIN 04/13/2013 14 - Other: See Comments Comments: Achy joints, legs felt "like lead" SULFA (SULFONAMIDE ANTIBIOTICS) 05/13/2005 2 - Rash ZOLOFT (SERTRALINE HCL) 05/14/2005 2 - Rash Date Reviewed: 04/01/2025 Reviewed by: Patricia Douglas, RN - Fully Assessed Prescriptions as of 04/09/2025 - ferrous sulfate 325 mg (65 mg iron) tablet Take 1 tablet by mouth every other day. - ARNUITY ELLIPTA 100 mcg/actuation inhaler Inhale 2 puffs as instructed once daily. - blood sugar diagnostic (ACCU-CHEK MIMI PLUS TEST STRP) test strip Test blood sugar(s) 1 time daily and as needed for symptoms of high or low sugar. Dx: Type 2 DM - Controlled E11.9 Insulin: No - Lancets lancets Test blood sugar(s) 1 x daily and as needed. Dx: E11.9. Insulin: No - amLODIPine (NORVASC) 10 mg tablet Take 1 tablet by mouth once daily. - Irbesartan-Hydrochlorothiazid e 300-12.5 mg per tablet Take 1 tablet by mouth once daily. replaces losartan hctz - atorvastatin (LIPITOR) 10 mg tablet Take 1 tablet by mouth once daily. - cholecalciferol, Vitamin D3, (VITAMIN D3) 1,250 mcg (50,000 unit) cap capsule Take 1 capsule by mouth one time a week. - Lancing Device with Lancets (ACCU-CHEK SOFT DEV LANCETS) Check sugars daily and as needed. E11.9 DM type 2, Insulin: No - levothyroxine (LEVOXYL) 75 mcg tablet Take 1 tablet by mouth once daily. - lansoprazole (PREVACID) 30 mg capsule Take one capsule every other day. - metoprolol tartrate, short acting, (LOPRESSOR) 25 mg tablet Take 1 tablet by mouth twice daily. - potassium chloride SR (MICRO-K) 8 mEq cpER Take 1 capsule by mouth twice daily. - metFORMIN (GLUCOPHAGE) 500 mg tablet Take 2 tablets by mouth twice daily with meals. - albuterol HFA (PROVENTIL HFA, VENTOLIN HFA) 90 mcg/actuation inhaler Inhale 2 Puffs as instructed four times daily. - blood sugar diagnostic (BLOOD GLUCOSE TEST) test strip Test blood sugar(s) 1 time daily and as needed for symptoms of high or low sugar . Dx: Type 2 DM - Controlled E11.9 Insulin: No - ketoconazole (NIZORAL) 2 % cream Apply 1 application to affected area once daily. Continue 1 week more after rash resolves - Blood Glucose Control, Normal (CONTOUR CONTROL SOLUTION, NML) [facility] As intstructed. Problem List As Of Date 04/09/2025 Noted Resolved Pure hypercholesterolemia [E78.00] 05/14/2005 11/27/2019 Essential hypertension [I10] 05/14/2005 ESOPHAGEAL REFLUX [K21.9] 05/14/2005 DM w/o Complication Type II, Uncontrolled [IMO0*12/08/2007 07/18/2014 MYLES (obstructive sleep apnea) [G47.33] 09/11/2008 Class 2 obesity due to excess calories without *09/11/2008 Abnormal Mammogram [R92.8] 06/19/2009 Vitamin D Deficiency [E55.9] 06/23/2009 Chronic lymphocytic thyroiditis [E06.3] 06/09/2010 Thyroiditis [E06.9] 07/08/2010 Osteopenia [M85.80] 05/21/2011 Hypothyroid [E03.9] 05/21/2011 Asthma [J45.909] 11/01/2011 DM neuropathy, type II diabetes mellitus (HCC) *04/19/2014 11/08/2016 Diabetes mellitus type 2, uncomplicated (HCC) [*07/18/2014 Hemorrhage of gastrointestinal tract, unspecifi*12/05/2014 Dermatochalasis of both upper eyelids [H02.831,*05/12/2018 05/12/2018 Diastolic dysfunction [I51.89] 07/19/2019 Aortic valve sclerosis [I35.8] 07/19/2019 Mixed hyperlipidemia [E78.2] 07/19/2019 Family history of ischemic heart disease [Z82.4*07/19/2019 Chest pain [R07.9] 07/26/2019 Ataxia [R27.0] 07/26/2019 Moderate persistent asthma without complication* Thyroid mass [E07.9] 03/16/2025 Encounter Status:Closed by CATHIE MENARD on 04/09/25 [facility] BRIEF OP NOTon 04-01-2025 BRIEF OP NOT HNO ID: [id number] Author: ALMA GAVIRIA MD Service: Radiology Author Type: Resident Type: Brief Op Note Filed: 04/01/2025 10:37 Note Text: BRIEF OPERATIVE / PROCEDURE NOTE LOG ID: [id number] SURGERY/PROCEDURE DATE: 04/01/2025 INCISION/PROCEDURE START TIME: 10:26 AM INCISION CLOSE/PROCEDURE END TIME: 10:32 AM SURGEON(S)/PROCEDURALIST(S) AND MANAGER TRANSFER(S): Surgeons and Role: * Mata Oliveira MD - Primary * Alma Gaviria MD - Resident - Assisting No Additional Staff SURGERY/PROCEDURE(S): US-guided biopsy of thyroid mass. ANESTHESIA: Procedural Sedation FINDINGS: 3 successful passes ESTIMATED BLOOD LOSS: Trace SPECIMENS: 3 core specimens sent in formalin COMPLICATIONS: None PRE-OP/PRE-PROCEDURE DIAGNOSIS: Thyroid mass. POST-OP/POST-PROCEDURE DIAGNOSIS: Same as Preop SIGNATURE: Alma Gaviria MD PATIENT NAME: Dl Parsons DATE: April 01, 2025 TIME: 10:36 AM [facility] CNOVon 04-01-2025 CNOV Office Visit (OTOLMN ) DL PARSONS ([id number]) 1945 F NFR Date Time Provider Department 04/01/25 8:00 AM JONNATHAN MILIAN OTOLMN During your visit today, we recorded the following information about you: Jonnathan Milian MD 04/01/2025 10:43 AM Signed Otolaryngology Head and Neck Surgery New Patient Visit Note HISTORY OF PRESENT ILLNESS Identification: Dl Parsons is a 79 year old woman with a thyroid nodule Referring physician: No ref. provider found History: I, Dr. Jonnathan Milian, personally reviewed the notes from: Aydin Dawson MD from 03/16/25 [place] presented to the ED on 03/16/25 for painful neck mass and swelling. ED had concern for thyroid mass. Patient was treated with dexamethasone and and ceftriaxone. Bedside ultrasound did not reveal a discrete mass at the time per ENT residents note. She reported that she has neck pain and swelling earlier this month for which she presented to the ED. She has had antibiotics and steroids with near complete resolution of the swelling. Has history of hypothyroidism, on levothyroxine, noted to have an enlarged thyroid at that time. At least 10 years. Medication dose has been stable. Thinks voice is a little bit more raspy. She coughs more. Builds more phlegm in her throat. Sleeps in a recliner since 2019 when she had COVID and can't lay flat anymore. Denies neck pressure or fullness. Has to be careful when she eats and takes small bites. No recurrent choking or aspiration. No history of pneumonia in the last year. Maintaining weight. History of HTN and T2DM, asthma, uses daily inhaler + rescue, albuterol QID. DM managed with metformin, no insulin. History of hysterectomy, cholecystectomy. No bleeding issues or issues with anesthesia. No blood thinners Biopsy: none, scheduled for IR biopsy today Imaging studies: I, Dr. Jonnathan Milian, personally reviewed these scans on the day of clinic: CT scan of the neck with contrast: 03/15/25 IMPRESSION: Prominent lobulated hypoattenuating mass involving the anterior thyroid and left thyroid lobe with ill-defined margins surrounding infiltration, suspicious for underlying malignancy. Infectious/inflammatory process also not excluded. Consultation with otolaryngology and thyroid ultrasound recommended for further assessment. MRI of head and neck: none. PET/CT scan: none. Ultrasound: 03/27/25 RESULT: Right Lobe: 5.2 cm x 1.6 cm x 2.1 cm; homogeneous echogenicity, expected vascular flow. Left Lobe: 6.2 cm x 2.5 cm x 2.3 cm; homogeneous echogenicity, expected vascular flow. Isthmus: 1.4 cm The most suspicious thyroid nodule(s) (up to four) as below: NODULE 1: Location: Left upper pole Size: 1.2 x 1.3 x 1.5 cm Characteristics: Composition: Solid or almost completely solid, 2 points Echogenicity: Hyperechoic, 1 point Shape: [id number], 0 points Margin: Smooth, 0 points Echogenic foci (add points for all that apply): None, 0 points Internal vascularity: present Interval growth: No prior available for comparison TI-RADS Category: TR3 ACR Recommendation: TI-RADS 3 nodule. Follow-up imaging at 1, 3 and 5 years is recommended. NODULE 2: Location: Left isthmus and extending to the lower pole left thyroid lobe Size: 2.4 x 1.6 x 3.7 cm Characteristics: Composition: Solid or almost completely solid, 2 points Echogenicity: Very hypoechoic, 3 points Shape: [id number], 0 points Margin: Lobulated or irregular, 2 points Echogenic foci (add points for all that apply): Macrocalcifications, 1 point Internal vascularity: absent Interval growth: No prior available for comparison TI-RADS Category: TR5 History of radiation: none. History of chemotherapy: none. PAST MEDICAL HISTORY PAST MEDICAL HISTORY Diagnosis Date Benign neoplasm of colon Chest pain, unspecified Dermatitis herpetiformis Diabetes mellitus (HCC) Esophageal reflux Hemorrhage of gastrointestinal tract, unspecified Hypothyroidism Other specified disease of hair and hair follicles Pure hypercholesterolemia Snoring Unspecified asthma(493.90) Dr. Ricketts had seen in the past Unspecified constipation Unspecified essential hypertension PAST SURGICAL HISTORY PAST SURGICAL HISTORY Procedure Laterality Date APPENDECTOMY COLONOS W/REM POLYP SNARE 11/07/12 small polyps asc and hepatic, diverticulosis - moderate COLONOSCOP W/ OR W/O BRSH SPEC 11/1999 Colonoscopy COLONOSCOP W/ OR W/O BRSH SPEC 09/20/2007 Colonoscopy COLONOSCOP W/ OR W/O BRSH SPEC 12/05/2014 Colonoscopy COLONOSCOP W/ OR W/O BRSH SPEC 10/23/2018 Colonoscopy DANDC, DIAG AND/OR THERAPEUTIC EGD W/O [facility] SPECIMEN W/BX 11/07/12 fundic polyps, minimal gastritis EGD W/O OR W/BRUSH/WASH 10/23/2018 EGD TOTAL ABDOM HYSTERECTOMY WITH BSO MEDICATIONS Current Outpatient Medications Medication Instruc (more content not included)... Normal [facility] HISTORY PHYSICALon HISTORY PHYSICAL HNO ID: [id number] Author: MATA OLIVEIRA MD Service: Radiology Author Type: Resident Type: H&P Filed: 04/01/2025 09:41 Note Text: Attestation signed by Mata Oliveira MD at 04/01/2025 9:41 AM Radiology Attending Note I evaluated the patient and personally participated in the avila components. I agree with the resident's findings and plan as documented and have discussed the case and management of the patient's care with the resident. Signature: Mata Oliveira MD Date: 04/01/2025 Time: 9:41 AM RADIOLOGY PROCEDURAL SEDATION HISTORY AND PHYSICAL EXAM SERVICE DATE: 04/01/2025 SERVICE TIME: 9:38 AM Subjective HPI: This is a 79 year old female who presents for biopsy of thyroid-based neck mass. PROCEDURE SCHEDULED: Procedure(s): BIOPSY THYROID (N/A) RADIOLOGY ORDER PLACED: PAST ANESTHESIA HISTORY: No history of adverse event PAST MEDICAL HISTORY Diagnosis Date Benign neoplasm of colon Chest pain, unspecified Dermatitis herpetiformis Diabetes mellitus (HCC) Esophageal reflux Hemorrhage of gastrointestinal tract, unspecified Hypothyroidism Other specified disease of hair and hair follicles Pure hypercholesterolemia Snoring Unspecified asthma(493.90) Dr. Ricketts had seen in the past Unspecified constipation Unspecified essential hypertension PAST SURGICAL HISTORY Procedure Laterality Date APPENDECTOMY COLONOSCOPY FLX DX W/COLLJ SPEC WHEN PFRMD 11/1999 Colonoscopy COLONOSCOPY FLX DX W/COLLJ SPEC WHEN PFRMD 09/20/2007 Colonoscopy COLONOSCOPY FLX DX W/COLLJ SPEC WHEN PFRMD 12/05/2014 Colonoscopy COLONOSCOPY FLX DX W/COLLJ SPEC WHEN PFRMD 10/23/2018 Colonoscopy COLSC FLX W/RMVL OF TUMOR POLYP LESION SNARE TQ 11/07/12 small polyps asc and hepatic, diverticulosis - moderate DILATION AND CURETTAGE DXAND/THER NONOBSTETRIC EGD TRANSORAL BIOPSY SINGLE/MULTIPLE 11/07/12 fundic polyps, minimal gastritis ESOPHAGOGASTRODUODENOSCOPY TRANSORAL DIAGNOSTIC 10/23/2018 EGD TOTAL ABDOMINAL HYSTERECT W/WO RMVL TUBE OVARY WITH BSO Prior to Admission medications as of 04/01/25 0925 Medication Sig Last Dose Taking ARNUITY ELLIPTA 100 mcg/actuation inhaler Inhale 2 puffs as instructed once daily. 04/01/2025 at 4:25 AM Yes amLODIPine (NORVASC) 10 mg tablet Take 1 tablet by mouth once daily. 04/01/2025 at 5:05 AM Yes Irbesartan-Hydrochlorothiazid e 300-12.5 mg per tablet Take 1 tablet by mouth once daily. replaces losartan hctz 04/01/2025 at 5:05 AM Yes atorvastatin (LIPITOR) 10 mg tablet Take 1 tablet by mouth once daily. 03/31/2025 Yes levothyroxine (LEVOXYL) 75 mcg tablet Take 1 tablet by mouth once daily. 04/01/2025 at 4:00 AM Yes metoprolol tartrate, short acting, (LOPRESSOR) 25 mg tablet Take 1 tablet by mouth twice daily. 04/01/2025 at 5:05 AM Yes potassium chloride SR (MICRO-K) 8 mEq cpER Take 1 capsule by mouth twice daily. 03/31/2025 Yes metFORMIN (GLUCOPHAGE) 500 mg tablet Take 2 tablets by mouth twice daily with meals. 03/31/2025 Yes albuterol HFA (PROVENTIL HFA, VENTOLIN HFA) 90 mcg/actuation inhaler Inhale 2 Puffs as instructed four times daily. 04/01/2025 at 4:25 AM Yes ferrous sulfate 325 mg (65 mg iron) tablet Take 1 tablet by mouth every other day. 03/30/2025 blood sugar diagnostic (ACCU-CHEK MIMI PLUS TEST STRP) test strip Test blood sugar(s) 1 time daily and as needed for symptoms of high or low sugar. Dx: Type 2 DM - Controlled E11.9 Insulin: No Unknown Lancets lancets Test blood sugar(s) 1 x daily and as needed. Dx: E11.9. Insulin: No Unknown cholecalciferol, Vitamin D3, (VITAMIN D3) 1,250 mcg (50,000 unit) cap capsule Take 1 capsule by mouth one time a week. Unknown Lancing Device with Lancets (ACCU-CHEK SOFT DEV LANCETS) Check sugars daily and as needed. E11.9 DM type 2, Insulin: No Unknown lansoprazole (PREVACID) 30 mg capsule Take one capsule every other day. 03/29/2025 blood sugar diagnostic (BLOOD GLUCOSE TEST) test strip Test blood sugar(s) 1 time daily and as needed for symptoms of high or low sugar . Dx: Type 2 DM - Controlled E11.9 Insulin: No Unknown ketoconazole (NIZORAL) 2 % cream Apply 1 application to affected area once daily. Continue 1 week more after rash resolves Unknown Blood Glucose Control, Normal (CONTOUR CONTROL SOLUTION, NML) Misc Soln As intstructed. Unknown ALLERGIES Allergen Reactions Citracal [Calcium C* Intolerance constipation Penicillins Rash Pravastatin Other: See Comments Achy joints, legs felt "like lead" Sulfa (Sulfonamide * Rash Zoloft [Sertraline * Rash Objective PHYSICAL EXAM: The remainder of the physical exam is noncontributory. AIRWAY: Mouth opening greater than 3 fingerbreadths: Yes Neck Full Range of Motion: Yes LUNGS: Lungs clear to auscultation, Good diaphragmatic excursion CARDIAC: Normal S1 and S2; no rub (more content not included)... Normal [facility] HISTORY PHYSICAL HNO ID: [id number] Author: JONNATHAN MILIAN MD Service: ? Author Type: Fellow Type: H&P Filed: 04/01/2025 10:43 Note Text: Otolaryngology Head and Neck Surgery New Patient Visit Note HISTORY OF PRESENT ILLNESS Identification: Dl Parsons is a 79 year old woman with a thyroid nodule Referring physician: No ref. provider found History: Dr. Jonnathan Velazquez, personally reviewed the notes from: Aydin Dawson MD from 03/16/25 [place] presented to the ED on 03/16/25 for painful neck mass and swelling. ED had concern for thyroid mass. Patient was treated with dexamethasone and and ceftriaxone. Bedside ultrasound did not reveal a discrete mass at the time per ENT residents note. She reported that she has neck pain and swelling earlier this month for which she presented to the ED. She has had antibiotics and steroids with near complete resolution of the swelling. Has history of hypothyroidism, on levothyroxine, noted to have an enlarged thyroid at that time. At least 10 years. Medication dose has been stable. Thinks voice is a little bit more raspy. She coughs more. Builds more phlegm in her throat. Sleeps in a recliner since 2019 when she had COVID and can't lay flat anymore. Denies neck pressure or fullness. Has to be careful when she eats and takes small bites. No recurrent choking or aspiration. No history of pneumonia in the last year. Maintaining weight. History of HTN and T2DM, asthma, uses daily inhaler + rescue, albuterol QID. DM managed with metformin, no insulin. History of hysterectomy, cholecystectomy. No bleeding issues or issues with anesthesia. No blood thinners Biopsy: none, scheduled for IR biopsy today Imaging studies: Dr. Jonnathan Velazquez, personally reviewed these scans on the day of clinic: CT scan of the neck with contrast: 03/15/25 IMPRESSION: Prominent lobulated hypoattenuating mass involving the anterior thyroid and left thyroid lobe with ill-defined margins surrounding infiltration, suspicious for underlying malignancy. Infectious/inflammatory process also not excluded. Consultation with otolaryngology and thyroid ultrasound recommended for further assessment. MRI of head and neck: none. PET/CT scan: none. Ultrasound: 03/27/25 RESULT: Right Lobe: 5.2 cm x 1.6 cm x 2.1 cm; homogeneous echogenicity, expected vascular flow. Left Lobe: 6.2 cm x 2.5 cm x 2.3 cm; homogeneous echogenicity, expected vascular flow. Isthmus: 1.4 cm The most suspicious thyroid nodule(s) (up to four) as below: NODULE 1: Location: Left upper pole Size: 1.2 x 1.3 x 1.5 cm Characteristics: Composition: Solid or almost completely solid, 2 points Echogenicity: Hyperechoic, 1 point Shape: [id number]-dfoh-[id number], 0 points Margin: Smooth, 0 points Echogenic foci (add points for all that apply): None, 0 points Internal vascularity: present Interval growth: No prior available for comparison TI-RADS Category: TR3 ACR Recommendation: TI-RADS 3 nodule. Follow-up imaging at 1, 3 and 5 years is recommended. NODULE 2: Location: Left isthmus and extending to the lower pole left thyroid lobe Size: 2.4 x 1.6 x 3.7 cm Characteristics: Composition: Solid or almost completely solid, 2 points Echogenicity: Very hypoechoic, 3 points Shape: [id number]-[id number], 0 points Margin: Lobulated or irregular, 2 points Echogenic foci (add points for all that apply): Macrocalcifications, 1 point Internal vascularity: absent Interval growth: No prior available for comparison TI-RADS Category: TR5 History of radiation: none. History of chemotherapy: none. PAST MEDICAL HISTORY PAST MEDICAL HISTORY Diagnosis Date Benign neoplasm of colon Chest pain, unspecified Dermatitis herpetiformis Diabetes mellitus (HCC) Esophageal reflux Hemorrhage of gastrointestinal tract, unspecified Hypothyroidism Other specified disease of hair and hair follicles Pure hypercholesterolemia Snoring Unspecified asthma(493.90) Dr. Ricketts had seen in the past Unspecified constipation Unspecified essential hypertension PAST SURGICAL HISTORY PAST SURGICAL HISTORY Procedure Laterality Date APPENDECTOMY COLONOS W/REM POLYP SNARE 11/07/12 small polyps asc and hepatic, diverticulosis - moderate COLONOSCOP W/ OR W/O BRS SPEC 11/1999 Colonoscopy COLONOSCOP W/ OR W/O BRSH SPEC 09/20/2007 Colonoscopy COLONOSCOP W/ OR W/O BRSH SPEC 12/05/2014 Colonoscopy COLONOSCOP W/ OR W/O BRSH SPEC 10/23/2018 Colonoscopy DANDC, DIAG AND/OR THERAPEUTIC EGD W/O BRSH SPECIMEN W/BX 11/07/12 fundic polyps, minimal gastritis EGD W/O OR W/BRUSH/WASH 10/23/2018 EGD TOTAL ABDOM HYSTERECTOMY WITH BSO MEDICATIONS Current Outpatient Medications Medication Instructions albuterol HFA (PROVENTIL HFA, VENTOLIN HFA) 90 mcg/actuation inhaler 2 puffs, INHALATION, 4 TIMES DAILY amLODIPine (NORVASC) 10 mg, ORAL, DAILY ARNUITY ELLIPTA 100 mcg/actuation inhaler 2 puffs, DAILY at (more content not included)... [facility] NURSING PROGon 04-01-2025 NURSING PROG HNO ID: [id number] Author: CAROL PAREKH, NATALIA Service: ? Author Type: Registered Nurse Type: Nursing Progress Note Filed: 04/02/2025 08:11 Note Text: Completed post procedure phone call. Dl is feeling well and has returned to her baseline diet and activity. Dl denies questions or concerns related to her thyroid biopsy appointment on 04/01/25 and had no surgical site concerns. [facility] PT EDon 04-01-2025 PT ED HNO ID: [id number] Author: CAROL JUNIOR, NATALIA Service: Nursing Author Type: Registered Nurse Type: Patient Education Filed: 04/01/2025 09:55 Note Text: AMBULATORY PATIENT EDUCATION TOPIC: Procedure Note: thyroid biopsy READINESS TO LEARN COGNITIVE ABILITY: Alert and oriented MOTIVATION TO LEARN: Interested FAMILY SUPPORT: High - Very involved in pt care INSTRUCTION PROVIDED TO: Patient PATIENT LEARNS BEST BY: Unable to Assess FACTORS AFFECTING LEARNING: None PHYSICAL LIMITATIONS AFFECTING LEARNING: Fatigue LEARNING RESPONSE DIAGNOSIS: thyroid mass METHOD OF INSTRUCTION: Individual instruction PATIENT / FAMILY RESPONSE: Information received as demonstrated by interest and questions FOLLOW-UP PLAN: Recommend - Recommend continued instruction and follow up as directed SUPPLEMENTAL MATERIAL: None REFERRAL (RECOMMENDATION): None Electronically Signed By: Carol Junior RN In Department: [place] [address] [facility] Pathology biopsy report Nikita (Tiss)on 04-01-2025 AP DISCLAIMER [facility] Comment on above: Order Comment: Speci men Type: TISSUE SPECIMENOrdering Facility: [facility] Address: [address] [place] [address] Result Comment: Michelle dubois Developed Test (LDT) Disclaimer: Performance characteristics of immunohistochemical, immunofluorescent, and chromogenic in-situ hybridization tests have been determined by the performing laboratory within [facility]'s [facility] Pathology and Laboratory Medicine Department ([facility], [facility][1], [facility], [facility], [facility], [facility], or [facility]) in a manner consistent with CLIA requirements. One or more of these tests may not have been cleared or approved by the FDA. [facility] is regulated under CLIA as qualified to perform high-complexity testing. These tests are used for clinical purposes. These should not be regarded as investigational or for research. Positive and negative controls stain appropriately. Performed By: #### 6 6121-5 ####[facility] LABIA [id number] [place] [address] [place] CASE REPORT [facility] Comment on above: Order Comment: Speci men Type: TISSUE SPECIMENOrdering Facility: [facility] Address: [address] [place] [address] Result Comment: [facility] Pathology Report Case: [id number] Authorizing Provider: Mata Oliveira MD Collected: 04/01/2025 10:28 AM Ordering Location: [place] [address] Received: 04/02/2025 01:13 PM Pathologist: Ferdinand Singleton DMD Specimen: Thyroid, Left, Biopsy Performed By: #### 6 6121-5 ####[facility] LABCLIA [id number] [place] [id number] [place] CLINICAL HISTORY Thyroid mass. Normal [facility] Comment on above: Order Comment: Speci men Type: TISSUE SPECIMENOrdering Facility: [facility] Address: [address] [place] [address] Performed By: #### 6 6121-5 ####[facility] LABCLIA [id number] [address] [address] [place] [facility] DIAGNOSIS COMMENT Tumor necrosis is id entified in this papillary thyroid carcinoma, raising concern for higher-grade unsampled disease. Mitotic activity is less than 3 mitoses per 2 mm??? and features of anaplastic thyroid carcinoma are not identified in this specimen. By immunohistochemistry, the carcinoma is positive for HBME-1 and BRAF V600E, while negative for NRAS Q61R. The case was reviewed with Dr. Collins Guerra, who agrees with the diagnosis. [facility] Comment on above: Order Comment: Speci men Type: TISSUE SPECIMENOrdering Facility: [facility] Address: [address] [place] [address] Performed By: #### 6 6121-5 ####[facility] LABCLIA [id number] [address] FINAL DIAGNOSIS [facility] Comment on above: Order Comment: Speci men Type: TISSUE SPECIMENOrdering Facility: [facility] Address: [address] [place] [address] Result Comment: Left thyroid gland, core needle biopsy: - Papillary thyroid carcinoma. - See comment. at 0913 EDT Performed By: #### 6 6121-5 ####[facility] LABCLIA [id number] [place] [id number] [facility] FINAL PERFORMING LAB Normal [facility] Comment on above: Order Comment: Speci men Type: TISSUE SPECIMENOrdering Facility: [facility] Address: [address] [place] [address] Result Comment: Diag nostic interpretation performed at: [facility], [address] [place] [address], [place] [id number] CLIA# [id number] Penology Professor: Stewart Winn MD Performed By: #### 6 6121-5 ####[facility] LABIA [id number] [address] OF [place] GROSS DESCRIPTION Normal [facility] Comment on above: Order Comment: Speci men Type: TISSUE SPECIMENOrdering Facility: [facility] Address: [address] [place] [address] Result Comment: A. T hyroid, Left, Biopsy Labeled "thyroid, left, biopsy" Received: In Formalin Number of tissue fragments: Multiple Specimen dimensions: 3.3 x 0.1 x 0.1 cm Cassette Code: Totally submitted intact BC April 02, 2025 2:22 PM Gross examination performed at [facility], [address] [place] [address] Performed By: #### 6 6121-5 ####[facility] NORTHIA [id number] [address] [place] US BIOPSY THYROIDon 04-01-20 US BIOPSY THYROID * * *Final Report* * * DATE OF EXAM: Apr 01 2025 10:34AM [facility] [place] BIOPSY THYROID / PROCEDURE REASON: E07.9-Thyroid mass * * * * Physician Interpretation * * * * PROCEDURE PERFORMED: ULTRASOUND GUIDED BIOPSY PRE-PROCEDURE DIAGNOSIS: Infiltrative thyroid mass, isthmus/left lower pole POST-PROCEDURE DIAGNOSIS: Same as pre-procedure diagnosis INDICATION FOR PROCEDURE: Infiltrative thyroid mass, isthmus/left lower pole RELEVANT PRIOR STUDIES: CT 03/15/2025 STAFF RADIOLOGIST: Dr. Oliveira MANAGER TRANSFER(S): Dr. Gaviria CONSENT: The risks, benefits, treatment options, potential complications and personnel involved were discussed with the patient. All questions were answered and consent was obtained. The patient indicated willingness to proceed. The staff physician personally verified consent. TIME OUT: A time out was performed immediately prior to procedure start with the nursing, anesthesia and interventional team, correctly identifying the patient name, date of , procedure, anatomy (including marking of site and side), patient position, procedure consent form, relevant diagnostic and radiology test results, antibiotic administration, safety precautions, and procedure-specific equipment needs. RESULT: PROCEDURE: After performing the time out, the thyroid mass was localized with ultrasound, images were obtained and archived. The anterior neck was prepped and draped in the usual sterile fashion. Under direct ultrasound guidance, 3 passes were made into the lesion using a 20 gauge core biopsy needle. The procedure was performed by the: critical care physician assistant, and the attending radiologist personally supervised the entire procedure. The attending radiologist performed the following procedural activities: Appropriate assistance throughout and personal supervision of entire procedure, including avila and critical portions. ANESTHESIA/SEDATION: Conscious sedation: Versed: 0.5 mg IV Fentanyl: 25 mcg IV Local anesthesia: Lidocaine 2%: 3 cc Vital signs were monitored by the nurse. START TIME: 1026 END TIME: 1032 INTRA-SERVICE (SEDATION) TIME: 10 minutes PATIENT MONITORING: The staff physician personally supervised and directed an independent trained observer who assisted in monitoring the patient?s level of consciousness and physiological status throughout the procedure. SIGNIFICANT COMPLICATIONS: None MINOR COMPLICATIONS: None SIGN-OUT DISCUSSION: Completed ESTIMATED BLOOD LOSS: Trace SPECIMENS: 3 core biopsy specimens were placed in formalin and sent to surgical pathology BIOPSY DEVICE: 20 gauge CorVocet core biopsy needle. IMPRESSION: Ultrasound-guided biopsy of isthmus/left lobe thyroid mass. Rail Operator: PSCB Transcribe Date/Time: Apr 01 2025 10:37A Dictated by : ALMA GAVIRIA MD This examination was interpreted and the report reviewed and electronically signed by: MATA OLIVEIRA MD on Apr 01 2025 12:09PM EST [id number] [facility] US NECK (POC) HNI USE ONLYon 04-01-2025 [facility] Radiology Study observation (narrative) [facility] MR/BMS.IMBon 03-27-2025 MR/BMS.IMB [facility] [address] [place], [place] [address] OFFICE VISIT Date of Service: 03/27/25 MR#: [id number] Acct: [id number] Name: DL PARSONS Rep #: [id number] : 1945 Provider: Dr. Kaitlyn del rosario MD Age/Sex: 79/F [place] [facility] [place]: Signed Intake Vital Signs 02/18/25 21:15 03/15/25 16:16 03/27/25 11:24 Height 4 ft 11 in 4 ft 11 in 4 ft 11 in Weight: 188 lb BMI 38.0 BP 133/77 H Blood Pressure Location Lt brachial Position Sitting Respiration 16 Pulse 70 Pulse Source Monitor Temp 98.2 F Temp Source Temporal Pulse Oximetry (%) 92 Oxygen Delivery Method room air Intake Visit Reasons: UTI FU Chief Complaint: UTI FU Experimental Machinist Required: No Accompanied by: Is patient in pain?: No Allergies Penicillins Allergy (Verified 03/27/25 11:05) Rash Sulfa (Sulfonamide Antibiotics) Allergy (Verified 03/27/25 11:05) Rash calcium Adverse Reaction (Verified 03/27/25 11:05) Constipation sertraline Adverse Reaction (Verified 03/27/25 11:05) Constipation Medications ???Medication ???Instructions ???Recorded ???Confirmed ???Type lancets (Accu-Chek Multiclix #100 ea 07/02/20 03/27/25 History Lancet) geriatric multivitamin-min 1 tab PO .QOD 01/28/22 03/27/25 Hi story handicap placard #1 ea 07/06/23 03/27/25 Rx blood-glucose meter #1 ea 07/11/23 03/27/25 Rx lancets (Accu-Chek Softclix #100 ea 07/11/23 03/27/25 Rx Lancets) blood sugar diagnostic (Accu-Chek #100 ea 10/31/23 03/27/25 Rx Guide test strips) accu-check avivia control solutions #1 BOTTLE 07/23/24 03/27/25 Rx amlodipine 10 mg tablet 10 mg PO DAILY BLOOD PRESSURE #90 07/23/24 03/27/25 Rx tabs atorvastatin 10 mg tablet 10 mg PO QHS CHOLESTEROL #90 tabs 07/23/24 03/27/25 Rx ergocalciferol (vitamin D2) 1,250 1,250 mcg PO QWEEK #14 caps 07/2303/27/25 Rx mcg (50,000 unit) capsule irbesartan 300 1 tab PO DAILY BP #90 tabs 2 4 03/27/25 Rx mg-hydrochlorothiazide 12.5 mg tablet (Avalide) levothyroxine 75 mcg tablet 75 mcg PO DAILY THYROID #90 tabs 1 09/23/23 03/27/25 Rx metoprolol tartrate 25 mg tablet 25 mg PO BID BLOOD PRESSURE #180 1 09/23/23 03/27/25 Rx tabs metformin 500 mg tablet See Rx Instructions PO BID 5 03/27/25 Rx DIABETES #270 tabs omeprazole 20 mg capsule,delayed 20 mg PO DAILY 02/18/25 03/27/25 H istory release lansoprazole 30 mg capsule,delayed 30 mg PO DAILY 03/15/25 03/27/25 History release albuterol sulfate 90 mcg/actuation 2 inh inhalation 4X/DAY 03/27/25 History aerosol inhaler bronchospasm cefdinir 300 mg capsule 300 mg PO 03/27/25 03/27/25 Histor y ferrous sulfate 325 mg (65 mg 325 mg PO Q OTHER DAY 03/27/25 History iron) tablet (FeroSul) fluconazole 100 mg tablet 100 mg PO QDAY 3 days #3 tabs 03/1503/27/25 Rx fluticasone furoate 100 2 inh inhalation Q24H 03/27/25 Hi story mcg/actuation blister powder for inhalation Have you fallen in the past year?: No PFSH Medical History (Updated 03/27/25 @ 12:[address] Kaitlyn Condon MD) Thyroid mass of unclear etiology Family history of dementia Memory deficit Cancer On home oxygen therapy Hypertension Abdominal discomfort Occult blood positive stool Back pain Black stool Acute URI Urinary tract infection Need for influenza vaccination Syncope Wears glasses Post-menopausal Thyroid disease Diabetes Walker as ambulation aid Ambulates with cane Injury of head and neck Gastric reflux Non-smoker History of edema History of echocardiogram History of stress test Bronchitis Shortness of breath on exertion Obesity History of COVID-19 Incontinence Difficulty balancing when standing Knee pain Diarrhea Hemorrhoids COVID-19 Pancreatitis Asthma Arthritis Seasonal allergies Osteopenia Essential hypertension Ascending cholangitis Gallstone pancreatitis Surgical History Hx laparoscopic cholecystectomy History of ERCP History of colonoscopy Cataracts, bilateral H/O: hysterectomy Cholecystectomy planned Family History Mother Diabetes Heart disease Arthritis Hypertension Hyperlipemia Father Colon cancer Heart disease Hypertension Hyperlipemia Cancer prostate Myocardial infarction Social History household members: spouse housing: house Smoking Status: Never smoker alcohol intake: never substance use type: does not use what type of physical activity do you participate in: other details: yard work additional social history: pt denies vaping, denies marijuana use, denies edibles, denies aspirin, (more content not included)... Normal [facility] US THYROID/PARATHYROIDon US THYROID/PARATHYROID * * *Final Report* * * DATE OF EXAM: Mar 27 2025 7:54AM [facility] 1048 - US THYROID/PARATHYROID / PROCEDURE REASON: Thyroid mass * * * * Physician Interpretation * * * * EXAMINATION: THYROID ULTRASOUND CLINICAL HISTORY: Thyroid mass TECHNIQUE: Sonography and Doppler imaging of the thyroid was performed. Images were obtained and stored in a permanent archive. MQ: [id number] COMPARISON: 03/15/[address] neck RESULT: Right Lobe: 5.2 cm x 1.6 cm x 2.1 cm; homogeneous echogenicity, expected vascular flow. Left Lobe: 6.2 cm x 2.5 cm x 2.3 cm; homogeneous echogenicity, expected vascular flow. Isthmus: 1.4 cm The most suspicious thyroid nodule(s) (up to four) as below: NODULE 1: Location: Left upper pole Size: 1.2 x 1.3 x 1.5 cm Characteristics: Composition: Solid or almost completely solid, 2 points Echogenicity: Hyperechoic, 1 point Shape: [id number], 0 points Margin: Smooth, 0 points Echogenic foci (add points for all that apply): None, 0 points Internal vascularity: present Interval growth: No prior available for comparison TI-RADS Category: TR3 ACR Recommendation: TI-RADS 3 nodule. Follow-up imaging at 1, 3 and 5 years is recommended. NODULE 2: Location: Left isthmus and extending to the lower pole left thyroid lobe Size: 2.4 x 1.6 x 3.7 cm Characteristics: Composition: Solid or almost completely solid, 2 points Echogenicity: Very hypoechoic, 3 points Shape: [id number]-pdqk-vzkg, 0 points Margin: Lobulated or irregular, 2 points Echogenic foci (add points for all that apply): Macrocalcifications, 1 point Internal vascularity: absent Interval growth: No prior available for comparison TI-RADS Category: TR5 ACR Recommendation: TI-RADS 5 nodule. FNA is advised. IMPRESSION: Thyroid nodule(s) is/are present. Fine needle aspiration is recommended if not previously performed. TI-RADS Category: TR5 ACR Recommendation: TI-RADS 5 nodule. FNA is advised. ACR recommendations are strictly based on the size and imaging appearance at the time of the exam and do not consider stability or previous biopsy results. Rail Operator: ESTRELLITA Transcribe Date/Time: Mar 30 2025 11:26A Dictated by : MODESTO ORDONEZ MD This examination was interpreted and the report reviewed and electronically signed by: MODESTO ORDONEZ MD on Mar 30 2025 11:28AM EST [id number] [facility] NURSING PROGon 03-26-2025 NURSING PROG HNO ID: [id number] Author: CAROL RIVERA LPN Service: ? Author Type: LICENSED NURSE Type: Nursing Progress Note Filed: 03/26/2025 11:59 Note Text: Pre- e instructions: Contacted patient and confirmed appt. for thyroid biopsy scheduled on 04/01/25, at [facility]. Diet: Do not eat solid food after midnight the night before your procedure. You may have water until 8:00am Medications: IF ok with your Prescribing Provider: RADIOLOGY RECOMMENDS THESE MEDICATION RESTRICTIONS : Metformin Metformin oral hypoglycemic the day of this procedure Arrival: Please bring your Photo ID and Insurance Card. A general consent may need to be signed. Arrival at 8:30am to desk B-1 ([facility]) and check in for your procedure. Rn Mds/Transportation: You will need a responsible adult to accompany you to and from the procedure. Recovery expectations: You can expect to be at the hospital for the majority of the day. Please do not schedule any other appointments the day of your procedure. If you have any questions please call [phone] [facility] Culture, Blood (WB)on 2024 CUB Blood cultures x2, f rom two different sites No growth in 5 days. Normal [facility] Comment on above: Performed By: #### L 100.0100, L503.7505, L500.2500, L500.3400, L501.2450 #### [facility] [place], [address] [facility] 03-19-2025 CNPN Telephone (ANGIO) DL PARSONS ([id number]) 1945 F NFR Date Time Provider Department 03/19/25 AYDIN DAWSON V ANGIO During your visit today, we recorded the following information about you: Alcides [place] 03/19/2025 10:58 AM Signed RADIOLOGY CALL CENTER INTAKE GRAVEL INSPECTOR: Alcides Scott EXT: [id number] DATE: 03.19.2025 TIME: 10:56a TRACKING #. 0000 REQUESTING PERSON: Aydin Dawson V PHONE/PAGER: [phone] REQUESTING STAFF: Aydin Dawson V PHONE/PAGER: [phone] SPECIFICS OF THE REQUEST: (Please be as detailed as possible. If request is lymph node biopsy, specify LOCATION of the node if possible): IMAGING GUIDED BIOPSY THYROID (For example: ?biopsy liver mass? or ?biopsy pelvic lymph node?) SPECIAL REQUESTS: TISSUE SAMPLE, LABWORK: N/A -Fine needle aspiration (FNA), core biopsy, no preference, unsure, specific processing request for pathology (For example: ?send for ER, SD, HER2/neymar? or ?possible lymphoma send in RPMI solution?) IS THIS REQUEST PART OF A RESEARCH PROTOCOL: No IF YES: List specifics of request and name/contact number of research coordinator and primary physician. MEDICAL DIAGNOSIS: Thyroid mass [E07.9] (For example: ?history of breast cancer with liver mass? or ?history of lymphoma?) TYPE AND DATE OF THE EXAM THAT IS THE BASIS OF THE REQUEST: CT Date: 08.01.2025 (Note: Requests for "random" organ biopsies, specifically liver and kidney random biopsies do not need imaging. ALL OTHER CASES NEED IMAGING TO EVALUATE APPROPRIATENESS/FEASIBILITY OF THE REQUEST) IMAGING: [facility] (If the imaging was obtained outside the [facility] system, then it needs to be submitted for review prior to approval.) Note to all persons requesting biopsies: All biopsy requests will be scheduled as quickly as possible, based on the clinical urgency, availability of appointment times, the need to hold anti-thrombolytic therapy (aspirin, blood thinners) and the patient?s schedule, including the need for an available hi lo driver. If a percutaneous biopsy or drainage is not felt to be safe or an alternative method for establishing a diagnosis is possible, this will be discussed directly with the requesting physician. Carol Rivera LPN 03/20/2025 9:08 AM Signed BX. COORDINATOR INFORMATION LAB RESULTS: PT INR (no units) Date Value 07/25/2019 1.0 APTT (sec) Date Value 07/25/2019 26.2 Platelet Count (k/uL) Date Value 03/17/2025 314 03/10/2020 436 Current Outpatient Medications Medication Sig cefdinir (OMNICEF) 300 mg capsule Take 1 capsule by mouth every 12 hours at 6 am and 6 pm for 9 days. Patient should start on March 19, 2025. ferrous sulfate 325 mg (65 mg iron) tablet Take 1 tablet by mouth every other day. ARNUITY ELLIPTA 100 mcg/actuation inhaler Inhale 2 puffs as instructed once daily. blood sugar diagnostic (ACCU-CHEK MIMI PLUS TEST STRP) test strip Test blood sugar(s) 1 time daily and as needed for symptoms of high or low sugar. Dx: Type 2 DM - Controlled E11.9 Insulin: No Lancets lancets Test blood sugar(s) 1 x daily and as needed. Dx: E11.9. Insulin: No amLODIPine (NORVASC) 10 mg tablet Take 1 tablet by mouth once daily. Irbesartan-Hydrochlorothiazid e 300-12.5 mg per tablet Take 1 tablet by mouth once daily. replaces losartan hctz atorvastatin (LIPITOR) 10 mg tablet Take 1 tablet by mouth once daily. cholecalciferol, Vitamin D3, (VITAMIN D3) 1,250 mcg (50,000 unit) cap capsule Take 1 capsule by mouth one time a week. Lancing Device with Lancets (ACCU-CHEK SOFT DEV LANCETS) Check sugars daily and as needed. E11.9 DM type 2, Insulin: No levothyroxine (LEVOXYL) 75 mcg tablet Take 1 tablet by mouth once daily. lansoprazole (PREVACID) 30 mg capsule Take one capsule every other day. metoprolol tartrate, short acting, (LOPRESSOR) 25 mg tablet Take 1 tablet by mouth twice daily. potassium chloride SR (MICRO-K) 8 mEq cpER Take 1 capsule by mouth twice daily. metFORMIN (GLUCOPHAGE) 500 mg tablet Take 2 tablets by mouth twice daily with meals. albuterol HFA (PROVENTIL HFA, VENTOLIN HFA) 90 mcg/actuation inhaler Inhale 2 Puffs as instructed four times daily. blood sugar diagnostic (BLOOD GLUCOSE TEST) test strip Test blood sugar(s) 1 time daily and as needed for symptoms of high or low sugar . Dx: Type 2 DM - Controlled E11.9 Insulin: No ketoconazole (NIZORAL) 2 % cream Apply 1 application to affected area once daily. Continue 1 week more after rash resolves Blood Glucose Control, Normal (CONTOUR CONTROL SOLUTION, NML) Misc Soln As intstructed. No current facility-administered medications for this visit. ALLERGIES Allergen Reactions Citracal [Calcium C* Intolerance constipation Penicillins Rash Pravastatin Other: See Comments Achy joints, legs felt "like lead" Sulfa (Sulfonamide * Rash Zoloft [Sertraline * Rash FILMS SENT TO WORKSTATION: GUID (more content not included)... [facility] CNDSon 03-18-2025 DS HNO ID: [id number] Author: AYDIN DAWSON MD Service: General Internal Medicine Author Type: Physician Type: Discharge Summary Filed: 03/31/2025 17:55 Note Text: DISCHARGE SUMMARY PATIENT NAME: Dl Parsons ADMISSION DATE: 03/16/2025 DISCHARGE DATE: 03/18/2025 ATTENDING PHYSICIAN: Aydin Dawson V, MD Code Status: Not on file Highest Readmission Risk Score: 14 The 30 day readmissions risk score is derived from an internally validated risk model which evaluates patient level characteristics, utilization history, medication orders and lab results up until the day of discharge. Patients with a score of 39 or above are considered highest risk for readmission. Specific patient level drivers will be listed at the bottom of the summary. CONSULTING TEAMS DURING HOSPITALIZATION: ENT Treatment Team: Attending Provider: Aydin Dawson V, MD Primary Service: RON Roblero REASON FOR HOSPITALIZATION: Neck mass and swelling suspicious for thyroid cancer Active Hospital Problems Diagnosis POA Thyroid mass Yes Resolved Hospital Problems No resolved problems to display. Morbid Obesity Class 3 OPERATIONS DURING HOSPITALIZATION: None PROCEDURES DURING HOSPITALIZATION: None HOSPITAL COURSE: Dl Parsons was transferred from [facility] ED to [facility] on 03/16/2025 for ENT evaluation of a painful neck mass and swelling with suspicion for possible thyroid cancer. The ENT team was consulted, and they gave the patient dexamethasone 8mg IV q8h (2 doses total), which significantly reduced the neck pain and swelling. She was also started on IV ceftriaxone for a possible bacterial superinfection, albuterol inhaler and mometasone for her asthma, and sliding scale insulin for blood glucose control. She also received 2L O2 at night via nasal cannula for obstructive sleep apnea, since she cannot tolerate a CPAP. On 03/17, ENT performed a bedside ultrasound, which revealed no discrete masses that could be targeted for biopsy. The patient was stable and was cleared by ENT to get a thyroid ultrasound and image-guided FNA in outpatient with a 10 day course of antibiotics. ENT will arrange an outpatient follow-up appointment for the patient. She will also get a thyroid ultrasound and FNA in the outpatient setting. No notes on file Transitions of Care Critical Issues: IMAGING FOLLOW-UP: thyroid ultrasound and image-guided FNA SPECIALIST FOLLOW-UP: ENT, endocrinology LABS AND PROCEDURES PENDING AT DISCHARGE: Lab Results (anti-thyroglobulin) PATIENT CONDITION AT DISCHARGE: Stable DISCHARGE DISPOSITION: Home with Relative Discharge Physical Exam: VITAL SIGNS: BP 125/83 Pulse 98 Temp 36.6 ?C (97.9 ?F) (Oral) Resp 18 Ht 152.4 cm (5') Wt 87.1 kg (192 lb 0.3 oz) SpO2 98% BMI 37.50 kg/m? GENERAL: Alert, no distress, cooperative SKIN: Skin color, texture, turgor normal. No rashes or lesions. HEAD/SINUSES: No significant findings NECK: Stiff swelling centered on the anterior midline neck, mildly tender to palpation LUNGS: Lungs CTAB CARDIAC: Normal S1 and S2; no rubs, murmurs, or gallops ABDOMEN: Abdomen soft, nontender, no masses or organomegaly EXTREMITIES: No deformities, ulcers, or skin discoloration, trace pitting edema present on bilateral lower legs WOUND/SURGICAL SITE CARE: None DIET: Resume your pre-hospital diet ACTIVITY: Resume pre-hospital activity ALLERGIES Allergen Reactions Citracal [Calcium C* Intolerance constipation Penicillins Rash Pravastatin Other: See Comments Achy joints, legs felt "like lead" Sulfa (Sulfonamide * Rash Zoloft [Sertraline * Rash DISCHARGE MEDICATION: Medication List START taking these medications cefdinir 300 mg capsule Commonly known as: OMNICEF Take 1 capsule by mouth every 12 hours at 6 am and 6 pm for 9 days. Patient should start on March 19, 2025. Start taking on: March 19, 2025 ferrous sulfate 325 mg (65 mg iron) tablet Take 1 tablet by mouth every other day. Start taking on: March 20, 2025 CONTINUE taking these medications albuterol HFA 90 mcg/actuation inhaler Commonly known as: PROVENTIL HFA, VENTOLIN HFA Inhale 2 Puffs as instructed four times daily. amLODIPine 10 mg tablet Commonly known as: NORVASC Take 1 tablet by mouth once daily. ARNUITY ELLIPTA 100 mcg/actuation inhaler Generic drug: fluticasone furoate atorvastatin 10 mg tablet Commonly known as: LIPITOR Take 1 tablet by mouth once daily. Blood Glucose Control, Normal Soln Commonly known as: CONTOUR CONTROL SOLUTION, NML As intstructed. * BLOOD GLUCOSE TEST test strip Generic drug: blood sugar diagnostic Test blood sugar(s) 1 time daily and as needed for symptoms of high or low sugar . Dx: Type 2 DM - Controlled E11.9 Insulin: No * ACCU-CHEK MIMI PLUS TEST STRP test strip Generic drug: blood sugar diagnostic Test blood sugar(s) 1 time daily and as needed for symptoms of high or low sugar. (more content not included)... Normal [facility] CBC W Auto Differential pane l (Bld)on 03-17-2025 Basophils (Bld) [#/Vol] 0.03 10*3/uL Normal <0.11 [facility] Comment on above: Order Comment: Speci men Type: BLOOD SPECIMENOrdering Facility: [facility] Address: [address] [place] [address] Performed By: #### 5 7021-8 ####[facility] LABCLIA [id number] [address], [place] [address] [place] Basophils/100 WBC (Bld) 0.3 % Normal [facility] Comment on above: Order Comment: Speci men Type: BLOOD SPECIMENOrdering Facility: [facility] Address: [address] [place] [address] Performed By: #### 5 7021-8 ####[facility] LABCLIA [id number] [address], [place] [address] [place] Differential cell count method Nom (Bld) Auto Normal [facility] Comment on above: Order Comment: Speci men Type: BLOOD SPECIMENOrdering Facility: [facility] Address: [address] [place] [address] Performed By: #### 5 7021-8 ####[facility] LABCLIA [id number] [address], [place] [address] [place] Eosinophils (Bld) [#/Vol] 0.13 10*3/uL Normal <0.46 [facility] Comment on above: Order Comment: Speci men Type: BLOOD SPECIMENOrdering Facility: [facility] Address: [address] [place] [address] Performed By: #### 5 7021-8 ####[facility] LABCLIA [id number] [place] [address] [place] Eosinophils/100 WBC (Bld) 1.5 % Normal [facility] Comment on above: Order Comment: Speci men Type: BLOOD SPECIMENOrdering Facility: [facility] Address: [address] [place] [address] Performed By: #### 5 7021-8 ####[facility] LABCLIA [id number] [address], [place] [address] [place] Erythrocyte distribution width (RBC) [Ratio] 15.5 % High 11.5-15.0 [facility] Comment on above: Order Comment: Speci men Type: BLOOD SPECIMENOrdering Facility: [facility] Address: [address] [place] [address] Performed By: #### 5 7021-8 ####[facility] LABIA [id number] [address] [address] [place] Hematocrit (Bld) [Volume fraction] 34.1 % Low 36.0-46.0 [facility] Comment on above: Order Comment: Speci men Type: BLOOD SPECIMENOrdering Facility: [facility] Address: [address] [place] [address] Performed By: #### 5 7021-8 ####[facility] LABIA [id number] [place] [address] [place] Hemoglobin (Bld) [Mass/Vol] 11.2 g/dL Low 11.5-15.5 [facility] Comment on above: Order Comment: Speci men Type: BLOOD SPECIMENOrdering Facility: [facility] Address: [address] [place] [address] Performed By: #### 5 7021-8 ####[facility] LABIA [id number] [place] [address] [place] Immature granulocytes (Bld) [#/Vol] 0.05 10*3/uL Normal <0.10 [facility] Comment on above: Order Comment: Speci men Type: BLOOD SPECIMENOrdering Facility: [facility] Address: [address] [place] [address] Performed By: #### 5 7021-8 ####[facility] LABIA [id number] [place] [address] [place] Immature granulocytes/100 WBC (Bld) 0.6 % Normal [facility] Comment on above: Order Comment: Speci men Type: BLOOD SPECIMENOrdering Facility: [facility] Address: [address] [place] [address] Performed By: #### 5 7021-8 ####[facility] LABCLIA [id number] [place] [address] [place] Lymphocytes (Bld) [#/Vol] 0.92 10*3/uL Low 1.00-4.00 [facility] Comment on above: Order Comment: Speci men Type: BLOOD SPECIMENOrdering Facility: [facility] Address: [address] [place] [address] Performed By: #### 5 7021-8 ####[facility] LABCLIA [id number] [place] [address] [place] Lymphocytes/100 WBC (Bld) 10.3 % Normal [facility] Comment on above: Order Comment: Speci men Type: BLOOD SPECIMENOrdering Facility: [facility] Address: [address] [place] [address] Performed By: #### 5 7021-8 ####[facility] LABIA [id number] [place] [address] [place] MCH (RBC) [Entitic mass] 26.3 pg Normal 26.0-34.0 [facility] Comment on above: Order Comment: Speci men Type: BLOOD SPECIMENOrdering Facility: [facility] Address: [address] [place] [address] Performed By: #### 5 7021-8 ####[facility] LABCLIA [id number] [place] [address] [place] MCHC (RBC) [Mass/Vol] 32.8 g/dL Normal 30.5-36.0 [facility] Comment on above: Order Comment: Speci men Type: BLOOD SPECIMENOrdering Facility: [facility] Address: [address] [place] [address] Performed By: #### 5 7021-8 ####[facility] LABIA [id number] [place] [address] [place] MCV (RBC) [Entitic vol] 80.0 fL Normal 80.0-100.0 [facility] Comment on above: Order Comment: Speci men Type: BLOOD SPECIMENOrdering Facility: [facility] Address: [address] [place] [address] Performed By: #### 5 7021-8 ####[facility] LABCLIA [id number] [facility] [place] [place] [address] [place] Monocytes (Bld) [#/Vol] 0.40 10*3/uL Normal <0.87 [facility] Comment on above: Order Comment: Speci men Type: BLOOD SPECIMENOrdering Facility: [facility] Address: [address] [place] [address] Performed By: #### 5 7021-8 ####[facility] LABCLIA [id number] [facility] [place] [address] [place] Monocytes/100 WBC (Bld) 4.5 % Normal [facility] Comment on above: Order Comment: Speci men Type: BLOOD SPECIMENOrdering Facility: [facility] Address: [address] [place] [address] Performed By: #### 5 7021-8 ####[facility] LABCLIA [id number] [place] [address] [place] Neutrophils (Bld) [#/Vol] 7.37 10*3/uL Normal 1.45-7.50 [facility] Comment on above: Order Comment: Speci men Type: BLOOD SPECIMENOrdering Facility: [facility] Address: [address] [place] [address] Performed By: #### 5 7021-8 ####[facility] LABCLIA [id number] [place] [address] [place] Neutrophils/100 WBC (Bld) 82.8 % Normal [facility] Comment on above: Order Comment: Speci men Type: BLOOD SPECIMENOrdering Facility: [facility] Address: [address] [place] [address] Performed By: #### 5 7021-8 ####[facility] LABCLIA [id number] [address], [facility] [place] Nucleated RBC (Bld) [#/Vol] 10*3/uL Normal <0.01 [facility] Comment on above: Order Comment: Speci men Type: BLOOD SPECIMENOrdering Facility: [facility] Address: [address] [place] [address] Performed By: #### 5 7021-8 ####[facility] LABCLIA [id number] [address], [facility] [place] Nucleated RBC/100 WBC (Bld) [Ratio] 0.0 /100 WBC Normal [facility] Comment on above: Order Comment: Speci men Type: BLOOD SPECIMENOrdering Facility: [facility] Address: [address] [place] [address] Performed By: #### 5 7021-8 ####[facility] LABIA [id number] [address] [place] [address] [place] Platelet mean volume (Bld) [Entitic vol] 9.6 fL Normal 9.0-12.7 [facility] Comment on above: Order Comment: Speci men Type: BLOOD SPECIMENOrdering Facility: [facility] Address: [address] [place] [address] Performed By: #### 5 7021-8 ####[facility] LABCLIA [id number] [address] [place] [address] [place] Platelets (Bld) [#/Vol] 314 10*3/uL Normal 150-400 [facility] Comment on above: Order Comment: Speci men Type: BLOOD SPECIMENOrdering Facility: [facility] Address: [address] [place] [address] Performed By: #### 5 7021-8 ####[facility] LABCLIA [id number] [address] [place] [address] [place] RBC (Bld) [#/Vol] 4.26 10*6/uL Normal 3.90-5.20 [facility] Comment on above: Order Comment: Speci men Type: BLOOD SPECIMENOrdering Facility: [facility] Address: [address] [place] [address] Performed By: #### 5 7021-8 ####[facility] LABCLIA [id number] [place] [address] [place] WBC (Bld) [#/Vol] 8.90 10*3/uL Normal 3.70-11.00 [facility] Comment on above: Order Comment: Speci men Type: BLOOD SPECIMENOrdering Facility: [facility] Address: [address] [place] [address] Performed By: #### 5 7021-8 ####[facility] LABCLIA [id number] [address] OF [facility] CONSULTon 03-17-2025 CONSULT HNO ID: [id number] Author: BRENTON MORENO MD Service: Otolaryngology Author Type: Resident Type: Consults Filed: 03/17/2025 11:01 Note Text: OTOLARYNGOLOGY HEAD AND NECK SURGERY CONSULT INITIAL NOTE PLEASE PAGE [phone] AFTER 5PM OR ON WEEKENDS Patient Name: Dl Parsons Age: [age] year old Sex: female Date: March 17, 2025 Admission Date: 03/16/2025 Hospital Day: 1 Date of Service: 03/17/2025 ASSESSMENT AND PLAN: Dl Parsons is a 79 year old female with PMHx significant for DM2, hypothyroidism and goiter, HTN, GERD, asthma, MYLES who was admitted to the hospital for neck mass. Otolaryngology-Head and Neck Surgery was consulted for evaluation of thyroid mass. Several weeks neck swelling and sore throat, feels voice might be weaker. Describes subjective dyspnea with speaking but not at rest. Flexible laryngoscopy with patent airway and bilateral mobile TVFs. Ct neck with irregular anterior thyroid mass with surrounding fat infiltration and lymphadenopathy. 8/3 AM: Patient reporting significant subjective improvement in thyroid swelling and tenderness. Airway remains stable. Will need to coordinate for FNA vs core biopsy. Should consider interval imaging with formal thyroid ultrasound in the setting of improving swelling. This can be done as an outpatient if no other inpatient needs. - Decadron 8-10mg q8hrs x 2 doses - Recommend Unsayn or comparable alternative given PCN allergy - Please obtain thyroid function panel and thyroglobulin - Please keep on continous pulse ox - Please page Head and Neck Surgery with any questions or concerns To be discussed with Staff Physician Dr. Reno, recommendations not finalized until co-signed by Staff. Eric Mccormack MD PGY2 Otolaryngology - Head and Neck Surgery Pager: [phone] Service Pager [phone] - please page after 5 PM and on weekends Addendum: 11AM Performed bedside ultrasound. Left neck fullness but not discrete and easily amenable to biopsy. Does not need to remain inpatient for thyroid ultrasound and image-guided FNA, can be pursued as an outpatient. Recommend discharge on 10 day course of Augmentin and steroid taper. - Will arrange for outpatient Head and neck surgery follow up, to be done after Thyroid US/biopsy - - - - - - - - - - - - - - - - - - - - - - - - - - - - - - - - - - - - - - - - - - - - - - - HPI: Dl Parsons is a 79 year old female with PMHx significant for DM2, hypothyroidism and goiter, HTN, GERD, asthma, MYLES who was admitted to the hospital for neck mass. Otolaryngology-Head and Neck Surgery was consulted for evaluation of thyroid mass. Several weeks neck swelling and sore throat, feels voice might be weaker. Describes subjective dyspnea with speaking but not at rest. Flexible laryngoscopy with patent airway. Hypothyroid on levothyroxine, thinks she has had a prior thyroid biopsy around 2014 but is unsure and can not located record. Family history of thyroid cancer in her sister and father. No weight loss, fevers night, sweats. Does endorse difficulty swallowing a large pill yesterday. Tolerating secretions. Non smoker. Past Medical History: PAST MEDICAL HISTORY Diagnosis Date Benign neoplasm of colon Chest pain, unspecified Dermatitis herpetiformis Diabetes mellitus (HCC) Esophageal reflux Hemorrhage of gastrointestinal tract, unspecified Hypothyroidism Other specified disease of hair and hair follicles Pure hypercholesterolemia Snoring Unspecified asthma(493.90) Dr. Ricketts had seen in the past Unspecified constipation Unspecified essential hypertension FAMILY HISTORY Problem Relation Age of Onset Diabetes Mother open heart surgery Diabetes Father Several SC's Colon Cancer Father Colon Cancer Paternal Grandmother Cancer Paternal Grandfather throat and stomach Cancer Sister thyroid cancer other (Multiple Myeloma) Sister Social History Tobacco Use Smoking status: Never Smokeless tobacco: Never Substance Use Topics Alcohol use: No Drug use: No ALLERGIES Allergen Reactions Citracal [Calcium C* Intolerance constipation Penicillins Rash Pravastatin Other: See Comments Achy joints, legs felt "like lead" Sulfa (Sulfonamide * Rash Zoloft [Sertraline * Rash PHYSICAL EXAM: Vitals - BP 138/76 Pulse 97 Temp 37.4 ?C (99.3 ?F) (Oral) Resp 16 Ht 152.4 cm (5') Wt 87.1 kg (192 lb 0.3 oz) SpO2 96% BMI 37.50 kg/m? General - Examination reveals a well-developed, well-nourished patient in no apparent distress. The patient's voice is strong without hoarseness Skin - There are no suspicious cutaneous lesions noted on the skin of the head and neck. Eyes - The conjunctiva are normal and there is no proptosis. Extraocular motility is intact and symmetric. Nose - The external nose reveals no masses or asymmetry. Intranasal examination by anterior rhinoscopy demonstrates a septum midline without perforation. No mass (more content not included)... Normal [facility] Comprehensive metabolic 2000 panelon 03-17-2025 Albumin [Mass/Vol] 3.8 g/dL Low 3.9-4.[address] [facility] Comment on above: Order Comment: Speci men Type: BLOOD SPECIMENOrdering Facility: [facility] Address: [address] [place] [address] Performed By: #### 3 051-0, 24308-5, 7504-7, 27734-2 ####[facility] LABCLIA [id number] [place] [address] [place] ALP [Catalytic activity/Vol] 118 U/L Normal 34-123 [facility] Comment on above: Order Comment: Speci men Type: BLOOD SPECIMENOrdering Facility: [facility] Address: [address] [place] [address] Performed By: #### 3 051-0, 49306-7, 3023-7, 51289-4 ####[facility] LABCLIA [id number] [place] [address] [place] ALT [Catalytic activity/Vol] 25 U/L Normal 7-38 [facility] Comment on above: Order Comment: Speci men Type: BLOOD SPECIMENOrdering Facility: [facility] Address: [address] [place] [address] Performed By: #### 3 051-0, 73399-4, 3023-7, 56712-6 ####[facility] LABCLIA [id number] [place] [address] [place] Anion gap [Moles/Vol] 13 mmol/L Normal 8-15 [facility] Comment on above: Order Comment: Speci men Type: BLOOD SPECIMENOrdering Facility: [facility] Address: [address] [place] [address] Performed By: #### 3 051-0, 40353-4, 3023-7, 81541-6 ####[facility] LABCLIA [id number] [place] [address] [place] AST [Catalytic activity/Vol] 12 U/L Low 13-35 [facility] Comment on above: Order Comment: Speci men Type: BLOOD SPECIMENOrdering Facility: [facility] Address: [address] [place] [address] Performed By: #### 3 051-0, 76077-2, 3023-7, 47486-0 ####[facility] LABCLIA [id number] [address] [address] [place] Bilirubin [Mass/Vol] 1.3 mg/dL Normal 0.2-1.3 [facility] Comment on above: Order Comment: Speci men Type: BLOOD SPECIMENOrdering Facility: [facility] Address: [address] [place], [place] [address] Performed By: #### 3 051-0, 49115-6, 7, 92065-7 ####[facility] LABCLIA [id number] [address] [address] [place] Calcium [Mass/Vol] 9.0 mg/dL Normal 8.5-10.[address] [facility] Comment on above: Order Comment: Speci men Type: BLOOD SPECIMENOrdering Facility: [facility] Address: [address] [place] [address] Performed By: #### 3 051-0, 53828-3, 7, ####[facility] LABIA [id number] [address] [address] [place] Chloride [Moles/Vol] 98 mmol/L Normal 98-107 [facility] Comment on above: Order Comment: Speci men Type: BLOOD SPECIMENOrdering Facility: [facility] Address: [address] [place] [address] Performed By: #### 3 051-0, 92062-7, 7, ####[facility] LABIA [id number] [address] [address] [place] CO2 [Moles/Vol] 24 mmol/L Normal 22-30 [facility] Comment on above: Order Comment: Speci men Type: BLOOD SPECIMENOrdering Facility: [facility] Address: [address] [place], [place] [address] Performed By: #### 3 051-0, 19288-2, 7, 93441-3 ####[facility] LABIA [id number] [address] [address] [place] Creatinine [Mass/Vol] 0.56 mg/dL Low 0.58-0.96 [facility] Comment on above: Order Comment: Speci men Type: BLOOD SPECIMENOrdering Facility: [facility] Address: [address] [place] [address] Performed By: #### 3 051-0, 38623-3, 3024-7, 46554-3 ####[facility] LABIA [id number] [place] [address] [place] eGFRcr SerPlBld CKD-EPI 2020 94 mL/min/1.73m??? Normal >=60 [facility] Comment on above: Order Comment: [place] cunningham Type: BLOOD SPECIMENOrdering Facility: [facility] Address: [address] [place] [address] Result Comment: Sofy mated Glomerular Filtration Rate (eGFR) is calculated using the 2020 CKD-EPI creatinine equation. This equation utilizes serum creatinine, sex, and age as parameters. The creatinine assay has traceable calibration to isotope dilution-mass spectrometry. Refer to KDIGO guidelines for clinical interpretation. In patients with unstable renal function, e.g. those with acute kidney injury, the eGFR may not accurately reflect actual GFR. Performed By: #### 3 051-0, 92574-4, 3024-7, 08946-6 ####[facility] LABIA [id number] [place] [id number] [place] Glucose [Mass/Vol] 172 mg/dL High 74-[address] [facility] Comment on above: Order Comment: [place] cunningham Type: BLOOD SPECIMENOrdering Facility: [facility] [facility] Address: [address] [place] [address] Result Comment: The [place] Diabetes Association (ADA) provides guidance for cutoff values for fasting glucose and random glucose. The ADA defines fasting as no caloric intake for at least 8 hours. Fasting plasma glucose results between 100 to 125 mg/dL indicate increased risk for diabetes (prediabetes). Fasting plasma glucose results greater than or equal to 126 mg/dL meet the criteria for diagnosis of diabetes. In the absence of unequivocal hyperglycemia, results should be confirmed by repeat testing. In a patient with classic symptoms of hyperglycemia or hyperglycemic crisis, random plasma glucose results greater than or equal to 200 mg/dL meet the criteria for diagnosis of diabetes. Reference: Standards of Medical Care in Diabetes 2016, [place] [employer] Association. Diabetes Care. 2016.39(Suppl 1). Performed By: #### 3 051-0, 57257-7, 7, 18886-7 ####[facility] LABCLIA [id number] [address] [address] [place] Potassium [Moles/Vol] 3.7 mmol/L Normal 3.7-5.1 [facility] Comment on above: Order Comment: Speci men Type: BLOOD SPECIMENOrdering Facility: [facility] Address: [address] [place] [address] Performed By: #### 3 051-0, 60278-7, 3024-02, ####[facility] LABIA [id number] [address] [address] [place] Protein [Mass/Vol] 7.0 g/dL Normal 6.3-8.[address] [facility] Comment on above: Order Comment: Speci men Type: BLOOD SPECIMENOrdering Facility: [facility] Address: [address] [place] [address] Performed By: #### 3 051-0, 63905-6, 3024-02, ####[facility] LABIA [id number] [address] [place] [address] [place] Sodium [Moles/Vol] 135 mmol/L Low 136-[address] [facility] Comment on above: Order Comment: Speci men Type: BLOOD SPECIMENOrdering Facility: [facility] Address: [address] [place] [address] Performed By: #### 3 051-0, 14739-3, 3024-02, 01499-4 ####[facility] LABIA [id number] [address] [address] [place] Urea nitrogen [Mass/Vol] 4 mg/dL Low 7-21 [facility] Comment on above: Order Comment: Speci men Type: BLOOD SPECIMENOrdering Facility: [facility] Address: [address] [place] [address] Performed By: #### 3 051-0, 47111-6, 3024-7, 84185-6 ####[facility] LABCLIA [id number] [place] [address] [place] Ferritin SerPl-mCncon 2024 Ferritin [Mass/Vol] 113.0 ng/mL Normal 14.7-205.1 [facility] Comment on above: Order Comment: Speci men Type: BLOOD SPECIMENOrdering Facility: [facility] Address: [address] [place] [address] Performed By: #### 3 016-3, 80966-6, 2276-4 ####[facility] LABIA [id number] [place] [address] [place] HbA1c (Bld)on 03-17-2025 Average glucose Estimated from glycated hemoglobin (Bld) [Mass/Vol] 169 mg/dL Normal [facility] Comment on above: Order Comment: Speci [facility] Type: BLOOD SPECIMENOrdering Facility: [facility] Address: [address] [place] [address] Result Comment: eAG: (Estimated average glucose) is a calculated value from HgbA1c and is district representative of the average blood glucose level in the last 2-3 month period. Performed By: #### 5 5454-3 ####[facility] LABIA [id number] [place] [address] [place] HbA1c (Bld) [Mass fraction] 7.5 % High 4.3-5.6 [facility] Comment on above: Order Comment: [place] cunningham Type: BLOOD SPECIMENOrdering Facility: [facility] Address: [address] [place] [address] Result Comment: [place] Diabetes Association guidelines indicate that patients with HgbA1c in the range 5.7-6.4% are at increased risk for development of diabetes, and intervention by lifestyle modification may be beneficial. HgbA1c greater or equal to 6.5% is considered diagnostic of diabetes. Performed By: #### 5 5454-3 ####[facility] [id number] [place] [id number] [place] Iron and Iron binding capaci panelon 03-17-2025 Iron [Mass/Vol] 25 ug/dL Low 41-186 [facility] Comment on above: Order Comment: Speci men Type: BLOOD SPECIMENOrdering Facility: [facility] Address: [address] [place] [address] Performed By: #### 3 051-0, 89447-5, 3024-7, 03014-6 ####[facility] [id number] [address] [place] Iron binding capacity [Mass/Vol] 340 ug/dL Normal 232-386 [facility] Comment on above: Order Comment: Speci men Type: BLOOD SPECIMENOrdering Facility: [facility] Address: [address] [place] [address] Performed By: #### 3 051-0, 05421-3, 3024-7, 75507-8 ####[facility] [id number] [address] [place] Iron/TIBC [Molar ratio] 7.4 % Low 15.0-57.0 [facility] Comment on above: Order Comment: Speci men Type: BLOOD SPECIMENOrdering Facility: [facility] Address: [address] [place] [address] Performed By: #### 3 051-0, 37000-6, 3024-7, 70165-5 ####[facility] [id number] [place] [address] [place] NT[facility] 03-17 Natriuretic peptide.B prohormone N-Terminal [Mass/Vol] 129 pg/mL Normal <450 [facility] Comment on above: Order Comment: Speci men Type: BLOOD SPECIMENOrdering Facility: [facility] Address: [address] [place] [address] Performed By: #### 3 016-3, 37403-9, 2276-4 ####[facility] LABCLIA [id number] [place] [address] [place] Osmolality SerPlon Osmolality [Osmolality] 280 mosm/kg Normal 275-300 [facility] Comment on above: Order Comment: Speci men Type: BLOOD SPECIMENOrdering Facility: [facility] Address: [address] [place] [address] Performed By: #### 2 692-2 ####[facility] LABIA [id number] [place] [address] [place] Osmolality Uron 03-17-2025 Osmolality (U) [Osmolality] 434 mosm/kg Normal 50-1200 [facility] Comment on above: Order Comment: Speci men Type: URINE SPECIMENOrdering Facility: [facility] Address: [address] [place] [address] Performed By: #### 2 695-5 ####[facility] NORTHIA [id number] [place] [address] [place] Sodium ?Tm Ur-sCncon 025 Sodium Unsp time (U) [Moles/Vol] 143 mmol/L Normal 14-216 [facility] Comment on above: Order Comment: Speci men Type: URINE SPECIMENOrdering Facility: [facility] Address: [address] [place] [address] Performed By: #### 3 5678-2 ####[facility] LABIA [id number] [place] [id number] [place] T3Free SerPl-mCncon 03-17-20 25 Free T3 [Mass/Vol] 2.1 pg/mL Low 2.3-4.[address] [facility] Comment on above: Order Comment: Speci men Type: BLOOD SPECIMENOrdering Facility: [facility] Address: [address] [place] [address] Performed By: #### 3 051-0, 08246-2, 3023-7, 84791-5 ####[facility] LABCLIA [id number] [place] [address] [place] T4 Free SerPl-mCncon 025 Free T4 [Mass/Vol] 1.6 ng/dL Normal 0.9-1.[address] [facility] Comment on above: Order Comment: Speci men Type: BLOOD SPECIMENOrdering Facility: [facility] Address: [address] [place] [address] Performed By: #### 3 051-0, 64955-7, 7, 79139-9 ####[facility] LABCLIA [id number] [address] [place] THYROGLOBULIN ANTIBODYon Thyroglobulin Ab Qn [IU]/mL Normal <4.0 [facility] Comment on above: Order Comment: Speci men Type: BLOOD SPECIMENOrdering Facility: [facility] Address: [address] [place] [address] Result Comment: The Thyroglobulin Antibody test was performed using the [employer] Unicel DXI paramagnetic particle chemiluminescent immunoassay method. Results obtained with different assay methods or kits cannot be used interchangeably. Performed By: #### T FLORY ####[facility] LABCLIA [id number] [address] [place] THYROID PEROXIDASE ANTIBODYo n 03-17-2025 TPO Ab Qn 307.2 [IU]/mL High <5.6 [facility] Comment on above: Order Comment: Speci men Type: BLOOD SPECIMENOrdering Facility: [facility] Address: [address] [place] [address] Result Comment: Thyr oid Peroxidase Antibody test is used as an aid in diagnosis of autoimmune thyroid disease. Clinical correlation is required. Performed By: #### M ICRO ####[facility] LABCLIA [id number] [place] [address] [place] TSH SerPl-aCncon 03-17-2025 TSH Qn 1.120 m[IU]/L Normal 0.270-4.20 0 [facility] Comment on above: Order Comment: Speci men Type: BLOOD SPECIMENOrdering Facility: [facility] Address: [address] [place] [address] Performed By: #### 3 016-3, 28273-3, 2276-4 ####[facility] LABIA [id number] [place] [address] [place] Urinalysis complete panel (U )on 03-17-2025 Bacteria LM.HPF (Urine sed) [#/Area] Negative Normal Negative [facility] Comment on above: Order Comment: Speci men Type: URINE SPECIMENOrdering Facility: [facility] Address: [address] [place] [address] Performed By: #### 2 4356-8 ####[facility] LABIA [id number] [place] [address] [place] Bilirubin Ql (U) Negative Normal Negative [facility] Comment on above: Order Comment: Speci men Type: URINE SPECIMENOrdering Facility: [facility] Address: [address] [place] [address] Performed By: #### 2 4356-8 ####[facility] LABIA [id number] [place] [address] [place] Clarity (Unsp spec) Clear Normal Clear [facility] Comment on above: Order Comment: Speci men Type: URINE SPECIMENOrdering Facility: [facility] Address: [address] [place] [address] Performed By: #### 2 4356-8 ####[facility] LABIA [id number] [place] [address] [place] Color (U) Yellow Normal Yellow [facility] Comment on above: Order Comment: Speci men Type: URINE SPECIMENOrdering Facility: [facility] Address: [address] [place] [address] Performed By: #### 2 4356-8 ####[facility] LABCLIA [id number] [place] [address] [place] Epithelial cells LM.HPF (Urine sed) [#/Area] None Seen Normal [facility] Comment on above: Order Comment: Speci men Type: URINE SPECIMENOrdering Facility: [facility] Address: [address] [place] [address] Performed By: #### 2 4356-8 ####[facility] LABCLIA [id number] [address] [place] Glucose Test strip (U) [Mass/Vol] Negative Normal Negative [facility] Comment on above: Order Comment: Speci men Type: URINE SPECIMENOrdering Facility: [facility] Address: [address] [place] [address] Performed By: #### 2 4356-8 ####[facility] LABCLIA [id number] [place] [address] [place] Hemoglobin Ql (U) Negative Normal Negative [facility] Comment on above: Order Comment: Speci men Type: URINE SPECIMENOrdering Facility: [facility] Address: [address] [place] [address] Performed By: #### 2 4356-8 ####[facility] LABCLIA [id number] [address] [address] [place] Hyaline casts (Urine sed) [#/Area] 1-3 /LPF Abnormal 0 /LPF [facility] Comment on above: Order Comment: Speci men Type: URINE SPECIMENOrdering Facility: [facility] Address: [address] [place] [address] Performed By: #### 2 4356-8 ####[facility] LABCLIA [id number] [address] [place] [address] [place] Ketones Ql (U) Trace Abnormal Negative [facility] Comment on above: Order Comment: Speci men Type: URINE SPECIMENOrdering Facility: [facility] Address: [address] [place] [address] Performed By: #### 2 4356-8 ####[facility] LABCLIA [id number] [address], [facility] [place] Leukocyte esterase Test strip Ql (U) Negative Normal Negative [facility] Comment on above: Order Comment: Speci men Type: URINE SPECIMENOrdering Facility: [facility] Address: [address] [place] [address] Performed By: #### 2 4356-8 ####[facility] LABCLIA [id number] [place] [address] [place] Nitrite Ql (U) Negative Normal Negative [facility] Comment on above: Order Comment: Speci men Type: URINE SPECIMENOrdering Facility: [facility] Address: [address] [place] [address] Performed By: #### 2 4356-8 ####[facility] LABCLIA [id number] [address], [place] [address] [place] pH (U) 6.5 [pH] Normal 5.0-8.0 [facility] Comment on above: Order Comment: Speci men Type: URINE SPECIMENOrdering Facility: [facility] Address: [address] [place] [address] Performed By: #### 2 4356-8 ####[facility] LABCLIA [id number] [place] [address] [place] Protein (U) [Mass/Vol] Negative Normal Negative [facility] Comment on above: Order Comment: Speci men Type: URINE SPECIMENOrdering Facility: [facility] Address: [address] [place] [address] Performed By: #### 2 4356-8 ####[facility] LABCLIA [id number] [place] [address] [place] RBC LM.HPF (Urine sed) [#/Area] 0-2 /HPF Normal 0-2 /HPF [facility] Comment on above: Order Comment: Speci men Type: URINE SPECIMENOrdering Facility: [facility] Address: [address] [place] [address] Performed By: #### 2 4356-8 ####[facility] LABIA [id number] [place] [address] [place] Specific gravity (U) [Rel density] 1.011 Normal 1.005-1.03 0 [facility] Comment on above: Order Comment: Speci men Type: URINE SPECIMENOrdering Facility: [facility] Address: [address] [place] [address] Performed By: #### 2 4356-8 ####[facility] LABIA [id number] [place] [address] [place] Urobilinogen Ql (U) 0.2 EU/dL Normal 0.2-1.0 EU/dL [facility] Comment on above: Order Comment: Speci men Type: URINE SPECIMENOrdering Facility: [facility] Address: [address] [place] [address] Performed By: #### 2 4356-8 ####[facility] LABIA [id number] [place] [address] [place] WBC LM.HPF (Urine sed) [#/Area] 0-5 /HPF Normal 0-5 /HPF [facility] Comment on above: Order Comment: Speci men Type: URINE SPECIMENOrdering Facility: [facility] Address: [address] [place] [address] Performed By: #### 2 4356-8 ####[facility] LABIA [id number] [place] [address] [place] HISTORY PHYSICALon HISTORY PHYSICAL HNO ID: [id number] Author: AYDIN DAWSON MD Service: General Internal Medicine Author Type: Physician Type: H&P Filed: 03/17/2025 21:55 Note Text: MEDICAL STUDENT HANDP INTERNAL MEDICINE This note was generated by a MEDICAL STUDENT working under the supervision of a Physician. As applicable, the findings, conclusions, and assessment of risk have been confirmed by a qualified provider. The note is NOTconsidered authenticated until addended and co-signed by the Physician at the beginning of this note. SERVICE DATE: 03/16/2025 SERVICE TIME: 6pm Subjective CHIEF COMPLAINT: Neck mass and pain HPI: Dl Parsons is a 79 y/o F with a past medical history of HTN, T2DM, hypothyroidism, GERD, asthma, MYLES (not on CPAP), hemorrhoids who is transferred to [facility] for [place] evaluation of neck mass. She initially presented to an [facility] 3 days ago with worsening throat pain and swelling. She developed a UTI 1 week ago and was started on Cipro 6 days ago, which resolved the UTI (by her PCP?). She suspected the Cipro was worsening her throat pain. She reports having had 3 UTIs this year. In the ED, she reported that her throat was painful and swollen, which has been gradually getting worse but she is not sure when exactly it started. She described feeling like her throat was closing up, and felt severely sore, swollen throat with burning pain upon palpation that extends up the lateral sides of the neck towards her ears bilaterally. She also reported a cough, initially noticed by her , that has been going on for about 2 months because of a sensation that "moisture was collecting" in her throat, but there was no hemoptysis. For the last 3-4 weeks, she has had difficulty swallowing and felt that food would get stuck in her throat if she didn't chew thoroughly or ate bulky foods. In the ED, CT neck with contrast showed enlarged heterogenous thyroid gland with prominent lobulated hypodense mass across the anterior thyroid isthmus with ill-defined margins and surrounding fat infiltration at the anterior aspect of the neck and numerous regional small lymph nodes, suspicious for infiltrative locally aggressive thyroid neoplasm or superinfected thyroid lesion. Labs showed WBC 15.5k (82% neutrophil), Hgb 11.7 (MCV 77.5), Platelet count 317k, Na 126, K 3.1, Cl 89, BUN 10, Cr 0.75, UA unremarkable. She was transferred from the ED to [facility] because the ED did not have an ENT available and were suspicious of possible thyroid cancer. In the ED, she was started on clindamycin IV due to penicillin and sulfa drug allergy, which has reduced the pain in her throat somewhat. She no longer reports dysuria but still has frequent urination which she attributes to her diabetes and increased water intake. She reports an increase in metformin daily dose (increased from 500 BID to 500 qAM/1,000 qPM) in the last few months due to worsening hyperglycemia. She had some diarrhea recently, which she attributes to the Cipro, and the diarrhea has resolved since she stopped taking Cipro. At [facility], she is currently on oxygen via nasal cannula because her O2 saturation dropped to 84% on room air. 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 Although she does not weigh her self regularly, she noticed that her weight has increased by at least 10 lbs in the last 2 months unexpectedly, despite her trying to avoid sugary foods and carbs for her diabetes. She also noticed that her legs get swollen throughout the day, but are not swollen in the morning when she wakes up from sleeping in a recliner, which has been going on for the last 6 months. She also reports feeling very cold all the time, often needing to wear multiple layers of clothes in the house, even when her says it feels hot. She has no personal history of cancer, although her sister had lymphoma, and a thyroid cancer diagnosed in her late 60s, her father had prostate cancer, her paternal grandfather had throat cancer, and her paternal grandmother had intestinal cancer in her late 50s. Both her mother and father have a history of diabetes. PAST MEDICAL HISTORY Diagnosis Date Benign neoplasm of colon Chest pain, unspecified Dermatitis herpetiformis Diabetes mellitus (HCC) Esophageal reflux Hemorrhage of gastrointestinal tract, unspecified Hypothyroidism Other specified disease of hair and hair follicles Pure hypercholesterolemia Snoring Unspecified asthma(493.90) Dr. Ricketts had seen in the past Unspecified constipation Unspecified essential hypertension PAST SURGICAL HISTORY Procedure Laterality Date APPENDECTOMY COLONOS W/REM POLYP SNARE 11/07/12 small (more content not included)... Normal [facility] Urine Cultureon 03-16-2025 [facility] Culture exhibits no growth. Normal [facility] Comment on above: Performed By: #### L 100.0100, L503.7505, L500.2500, L500.3400, L501.2450 #### [facility] [address] [place], [place], [id number] [facility] #1, 2 Below infectio n level. Streptococcus group G [place] Count <1000 Mixed Gram Positive Organisms Mixed Gram Positive Organisms MIXC Mixed contaminants. Submit a new specimen if indicated. Normal [facility] Comment on above: Performed By: #### L 100.0100, L503.7505, L500.2500, L500.3400, L501.2450 #### [facility] [address] [place], [place], [id number] Absolute lymphocyte countOrd ered By: Seamus Zhou on 03-15-2025 Lymphocytes Auto (Unsp spec) [#/Vol] 1.26 10*3/uL 0.83-4.51 [facility] Absolute neutrophil countOrd ered By: [facility] on 03-15-2025 Neutrophils (Bld) [#/Vol] 12.7 10*3/uL High 2.0-7.7 [facility] Anion gap in Serum or Plasma Ordered By: Remus Zhuo on 03-15-2025 Anion gap [Moles/Vol] 14 mmol/L 5-15 [facility] Automated lymphocyte count a s percentage of total leukocytesOrdered By: Christineus Abelardo on 03-15-2025 Lymphocytes/100 WBC Auto (Unsp spec) 8.1 % Low 19-41 [facility] BUN/creatinine ratioOrdered By: Seamus Zhou on 03-15-2025 Urea nitrogen/Creatinine [Mass ratio] 13.0 mg/mg - [facility] Basic Metabolic Profile (BMP )on 03-15-2025 BUN/CRE 13.0 RATIO Normal - [facility] Comment on above: Performed By: #### L 501.9520, L500.2500, L100.0100, L503.6005 ####[facility] [address] [place], [address] Calcium [Mass/Vol] 9.1 mg/dL Normal 7.6-11.0 [facility] Comment on above: Performed By: #### L 501.9520, L500.2500, L100.0100, L503.6005 ####[facility] [address] [place], [address] Chloride [Moles/Vol] 89 mmol/L Low 98-108 [facility] Comment on above: Performed By: #### L 501.9520, L500.2500, L100.0100, L503.6005 ####[facility] [address] [place], [address] CO2 [Moles/Vol] 23.1 mmol/L Normal 21.0-32.0 [facility] Comment on above: Performed By: #### L 501.9520, L500.2500, L100.0100, L503.6005 ####[facility] [address] [place], [address] Creatinine [Mass/Vol] 0.75 mg/dL Normal 0.70-1.20 [facility] Comment on above: Performed By: #### L 501.9520, L500.2500, L100.0100, L503.6005 ####[facility] [address] [place], [address] ECRCL 57.51 ml/min Normal 50-250 [facility] Comment on above: Performed By: #### L 501.9520, L500.2500, L100.0100, L503.6005 ####[facility] [address] [place], [address] GAP 14 Normal 5-15 [facility] Comment on above: Performed By: #### L 501.9520, L500.2500, L100.0100, L503.6005 ####[facility] [address] [place], [address] GFR/1.73 sq M.predicted among non-blacks MDRD (S/P/Bld) [Vol rate/Area] 82 mL/min/{1.73_m2} Normal >60 [facility] Comment on above: Result Comment: mL/m in/1.73m2 CKD-EPI Creatinine Equation (2020) Performed By: #### L 501.9520, L500.2500, L100.0100, L503.6005 ####[facility] [address] [place], [address] Glucose [Mass/Vol] 154 mg/dL High 70-99 [facility] Comment on above: Performed By: #### L 501.9520, L500.2500, L100.0100, L503.6005 ####[facility] [address] [place], [address] Potassium [Moles/Vol] 3.1 mmol/L Low 3.3-5.1 [facility] Comment on above: Performed By: #### L 501.9520, L500.2500, L100.0100, L503.6005 ####[facility] [address] [place], [address] Sodium [Moles/Vol] 126 mmol/L Low 133-145 [facility] Comment on above: Performed By: #### L 501.9520, L500.2500, L100.0100, L503.6005 ####[facility] [address] [place], [address] Urea nitrogen [Mass/Vol] 10 mg/dL Normal 4-19 [facility] Comment on above: Performed By: #### L 501.9520, L500.2500, L100.0100, L503.6005 ####[facility] [address] [place], [address] Basophil percentageOrdered B y: Remus Ungur on 03-15-2025 Basophils/100 WBC (Bld) 0.1 % 0-1 [facility] Bilirubin Test strip Ql (U)O rdered By: Remus Ungur on 03-15-2025 Bilirubin Ql (U) Negative Negative [facility] Blood cultureOrdered By: Rem us Ungur on 03-15-2025 Bacteria identified Cx Nom (Bld) No growth in 5 days. [facility] Bacteria identified Cx Nom (Bld) No growth in 5 days. [facility] CBC W/Diff, Automatedon 08-0 Absolute Lymph 1.26 X10 3/uL Normal 0.83-4.51 [facility] Comment on above: Performed By: #### L 501.9520, L500.2500, L100.0100, L503.6005 ####[facility] [address] [place], [address] Absolute Neut 12.7 X10 3/uL High 2.0-7.7 [facility] Comment on above: Performed By: #### L 501.9520, L500.2500, L100.0100, L503.6005 ####[facility] [address] [place], [address] Basophils/100 WBC (Bld) 0.1 % Normal 0-1 [facility] Comment on above: Performed By: #### L 501.9520, L500.2500, L100.0100, L503.6005 ####[facility] [address] [place], [address] Eosinophils/100 WBC (Bld) 0.1 % Normal 0-5 [facility] Comment on above: Performed By: #### L 501.9520, L500.2500, L100.0100, L503.6005 ####[facility] [address] [place], [address] Erythrocyte distribution width (RBC) [Ratio] 15.1 % High 11.6-14.6 [facility] Comment on above: Performed By: #### L 501.9520, L500.2500, L100.0100, L503.6005 ####[facility] [address] [place], [address] Hematocrit (Bld) [Volume fraction] 33.0 % Low 37-47 [facility] Comment on above: Performed By: #### L 501.9520, L500.2500, L100.0100, L503.6005 ####[facility] [address] [place], [address] Hemoglobin (Bld) [Mass/Vol] 11.7 g/dL Low 12.0-15.0 [facility] Comment on above: Performed By: #### L 501.9520, L500.2500, L100.0100, L503.6005 ####[facility] [address] [place], [address] IG% 0.600 Normal 0.0-0.9 [facility] Comment on above: Result Comment: IG% - Immature Granulocytes (promyelocytes, myelocytes and metamyelocytes) > 1% indicates that a LEFT SHIFT is Present. Performed By: #### L 501.9520, L500.2500, L100.0100, L503.6005 ####[facility] [address] [place], [address] Lymphocytes/100 WBC (Bld) 8.1 % Low 19-41 [facility] Comment on above: Performed By: #### L 501.9520, L500.2500, L100.0100, L503.6005 ####[facility] [address] [place], [address] MCH (RBC) [Entitic mass] 27.5 pg Normal 27.0-32.0 [facility] Comment on above: Performed By: #### L 501.9520, L500.2500, L100.0100, L503.6005 ####[facility] [address] [place], [address] MCHC (RBC) [Mass/Vol] 35.5 g/dL Normal 32-36 [facility] Comment on above: Performed By: #### L 501.9520, L500.2500, L100.0100, L503.6005 ####[facility] [address] [place], [address] MCV (RBC) [Entitic vol] 77.5 fL Low 81-99 [facility] Comment on above: Performed By: #### L 501.9520, L500.2500, L100.0100, L503.6005 ####[facility] [address] [place], [address] Monocytes/100 WBC (Bld) 8.9 % Normal 0-10 [facility] Comment on above: Performed By: #### L 501.9520, L500.2500, L100.0100, L503.6005 ####[facility] [address] [place], [address] Neutrophils/100 WBC (Bld) 82.2 % High 47-70 [facility] Comment on above: Performed By: #### L 501.9520, L500.2500, L100.0100, L503.6005 ####[facility] [address] [place], [address] Nucleated RBC (Bld) [#/Vol] 0 10*3/uL Normal 0-5 [facility] Comment on above: Performed By: #### L 501.9520, L500.2500, L100.0100, L503.6005 ####[facility] [address] [place], [address] Platelet mean volume (Bld) [Entitic vol] 9.4 fL Normal 6.2-12.0 [facility] Comment on above: Performed By: #### L 501.9520, L500.2500, L100.0100, L503.6005 ####[facility] [address] [place], [address] Platelets (Bld) [#/Vol] 317 10*3/uL Normal 150-450 [facility] Comment on above: Performed By: #### L 501.9520, L500.2500, L100.0100, L503.6005 ####[facility] [address] [place], [address] RBC (Bld) [#/Vol] 4.26 10*6/uL Normal 4.2-5.4 [facility] Comment on above: Performed By: #### L 501.9520, L500.2500, L100.0100, L503.6005 ####[facility] [address] [place], [address] RDW SD 42.2 fl Normal 35.1-43.9 [facility] Comment on above: Performed By: #### L 501.9520, L500.2500, L100.0100, L503.6005 ####[facility] [address] [place], [address] WBC (Bld) [#/Vol] 15.5 10*3/uL High 4.4-11.0 [facility] Comment on above: Performed By: #### L 501.9520, L500.2500, L100.0100, L503.6005 ####[facility] [address] [place], [address] Carbon dioxide, total [Moles /volume] in Central venous bloodOrdered By: Seamus Zhou on 03-15-2025 CO2 [Moles/Vol] 23.1 mmol/L 21.0-32.0 [facility] Chest 1 View (Portable)on Chest 1 View (Portable) [facility] Imaging Services [address] [place] [address] Chest 1 View (Portable) MR#: [id number] Acct: [id number] Name: DL PARSONS Rep #: [id number] : 1945 F 79 From: Mandy Meng MD PCP: Dr. Kaitlyn Condon MD Status: REG ER Study: Chest 1 View (Portable) Date of Exam: 03/15/25 Exam# [id number] Ordering Dr: Seamus Zhou DO PROCEDURE: CHEST 1 VIEW (PORTABLE) 03/15/2025 REASON FOR EXAM: COUGH TECHNIQUE: Frontal view of the chest. COMPARISON: Chest PA and Lateral - 19-Feb-2025 1:03 AM FINDINGS: LUNGS AND PLEURA: Mildly diminished lung volumes bilaterally. No focal airspace consolidation. No pleural effusion or pneumothorax. HEART AND MEDIASTINUM: The cardiac silhouette is mildly enlarged. The mediastinal contour is normal. PULMONARY VESSELS: Mild prominence of the central pulmonary vasculature. BONES: No acute osseous abnormality. Moderate thoracic dextroscoliosis. RAD/Chest 1 View (Portable) IMPRESSION: Cardiomegaly with suspected mild vascular congestion. Reading Location: [facility] CC: Dr. Kaitlyn Condon MD; Dr. Seamus Zhou DO Rail Operator: Signed Normal [facility] Chloride assayOrdered By: Marilin Zhou on 03-15-2025 Chloride [Moles/Vol] 89 mmol/L Low 98-108 [facility] Emergency Department Summary on 03-15-2025 Emergency Department Summary [facility] Medical Records Department [address] [place] [address] Emergency Department Summary 03/15/25 MR#: [id number] Acct: [id number] Name: DL PARSONS Rep #: [id number] : 1945 79 From: Seamus Zhou DO PCP: Dr. Kaitlyn Condon MD Status:REG ER Location: ED ADDENDUM by Dr. Harpreet Noriega DO on 03/16/25 at 0531 Patient signed out to me awaiting bed availability at [facility]. She request to go here. Drawing Box Tender discussed with transfer line, discussed bed likely available collar band creaser after 7 AM. Will keep her in the ED awaiting bed for transfer. She is treated with antibiotics for concerns for neoplasm with infection. She was given clindamycin little over 9 hours ago. Will schedule clindamycin every 8 hours. Clinically has been stable. 03/16/25 0531 Cosigner Signature (if applicable): cc: Dr. Kaitlyn Condon MD * Signed HPI History of Present Illness Chief Complaint: Complaint Detail of Chief Complaint: Dysuria Informant: patient Narrative Narrative: Patient presents to the emergency department with concern for urinary tract infection. Patient states that she was on nitrofurantoin a month ago and then 2-1/2 days ago was started on Cipro which she started having dysuria again. She has had 3 UTIs this year. Since taking the Cipro she describes some fullness in her throat. She has had a cough. She denies fever. She states that she cannot stop shaking since taking the Cipro. She denies any pain in her back. She has had nausea but no vomiting. Patient also has been having some diarrhea since yesterday. [facility] Medical History (Updated 03/15/25 @ 20:[address] Seamus Zhou DO) Family history of dementia Memory deficit Cancer On home oxygen therapy Hypertension Abdominal discomfort Occult blood positive stool Back pain Black stool Acute URI Urinary tract infection Need for influenza vaccination Syncope Wears glasses Post-menopausal Thyroid disease Diabetes Walker as ambulation aid Ambulates with cane Injury of head and neck Gastric reflux Non-smoker History of edema History of echocardiogram History of stress test Bronchitis Shortness of breath on exertion Obesity History of COVID-19 Incontinence Difficulty balancing when standing Knee pain Diarrhea Hemorrhoids COVID-19 Pancreatitis Asthma Arthritis Seasonal allergies Osteopenia Essential hypertension Ascending cholangitis Gallstone pancreatitis Home Medications ???Medication ???Instructions ???Recorded ???Last Taken ???Type lancets (Accu-Chek Multiclix #100 ea 07/02/20 Unknown History Lancet) geriatric multivitamin-min 1 tab PO .QOD 01/28/22 10/08/24 Hi story handicap placard #1 ea 07/06/23 Unknown Rx blood-glucose meter #1 ea 07/11/23 Unknown Rx lancets (Accu-Chek Softclix #100 ea 07/11/23 Unknown Rx Lancets) blood sugar diagnostic (Accu-Chek #100 ea 10/31/23 Unknown Rx Guide test strips) accu-check avivia control solutions #1 BOTTLE 07/23/24 Unknown Rx amlodipine 10 mg tablet 10 mg PO DAILY BLOOD PRESSURE #90 07/23/24 10/09/24 Rx tabs atorvastatin 10 mg tablet 10 mg PO QHS CHOLESTEROL #90 tabs 07/23/24 10/08/24 Rx ergocalciferol (vitamin D2) 1,250 1,250 mcg PO QWEEK #14 caps 07/2310/08/24 Rx mcg (50,000 unit) capsule irbesartan 300 1 tab PO DAILY BP #90 tabs 4 10/08/24 Rx mg-hydrochlorothiazide 12.5 mg tablet (Avalide) levothyroxine 75 mcg tablet 75 mcg PO DAILY THYROID #90 tabs 1 09/23/23 10/09/24 Rx metoprolol tartrate 25 mg tablet 25 mg PO BID BLOOD PRESSURE #180 1 09/23/23 10/09/24 Rx tabs albuterol sulfate 90 mcg/actuation 2 inh inhalation Q6H PRN 5 Unknown Rx aerosol inhaler bronchospasm #8.5 grams fluticasone furoate 100 1 inh inhalation Q24H #90 ea 10/29 Unknown Rx mcg/actuation blister powder for inhalation metformin 500 mg tablet See Rx Instructions PO BID 5 Unknown Rx DIABETES #270 tabs omeprazole 20 mg capsule,delayed 20 mg PO DAILY 02/18/25 Unknown Hi story release ciprofloxacin HCl 500 mg tablet 500 mg PO BID #14 tabs 03/14/25 Un known Rx lansoprazole 30 mg capsule,delayed 30 mg PO DAILY 03/15/25 Unknown History release Allergy/AdvReac Type Severity Reaction Status Date / Time Penicillins Allergy Rash Verified 03/15/25 16:21 Sulfa (Sulfonamide Allergy Rash Verified 03/15/25 16:21 Antibiotics) calcium AdvReac Constipatio Verified 03/15/25 16:21 n sertraline AdvReac Constipatio Verified 03/15/25 16:21 n Family History Mother Diabetes Heart disease Arthritis Hypertension Hyperlipemia Father Colon cancer Heart disease Hypertension Hyperlipemia Cancer prostate Myocardial infarctio (more content not included)... Normal [facility] Eosinophil percentageOrdered By: Seamus Zhou on 03-15-2025 Eosinophils/100 WBC (Bld) 0.1 % 0-5 [facility] Erythrocyte distribution wid th ratioOrdered By: Seamus Zhou on 03-15-2025 Erythrocyte distribution width (RBC) [Ratio] 15.1 % High 11.6-14.6 [facility] Erythrocyte distribution wid th standard deviationOrdered By: Seamus Zhou on 03-15-2025 Erythrocyte distribution width (RBC) [Ratio] 42.2 fl 35.1-43.9 [facility] Glomerular filtration rate ( GFR) estimation/1.73 sq m using serum, plasma, or whole bOrdered By: Seamus Zhou on 03-15-2025 GFR/1.73 sq M.predicted among non-blacks MDRD (S/P/Bld) [Vol rate/Area] 82 mL/min/{1.73_m2} >60 [facility] Comment on above: mL/min/1.73m2 CKD-EP I Creatinine Equation (2020) Hematocrit Auto (Bld) [Volum e fraction]Ordered By: Seamus Zhou on 03-15-2025 Hematocrit (Bld) [Volume fraction] 33.0 % Low 37-47 [facility] Hemoglobin measurementOrdere d By: Seamus Zhou on 03-15-2025 Hemoglobin (Bld) [Mass/Vol] 11.7 g/dL Low 12.0-15.0 [facility] Immature granulocytes/100 WB C Auto (Bld)Ordered By: Seamus Zhou on 03-15-2025 Immature granulocytes/100 WBC (Bld) 0.600 % 0.0-0.9 [facility] Comment on above: IG% - Immature Granu locytes (promyelocytes, myelocytes and metamyelocytes) > 1% indicates that a LEFT SHIFT is Present. Influenza virus A and B and SARS-CoV-2 (COVID-19) and Respiratory syncytial virus RNAOrdered By: Seamus Zhou on 03-15-2025 SARS-CoV-2 (COVID-19) RNA CHRISTY+probe Ql (Unsp spec) [facility] Ketones Test strip Ql (U)Ord ered By: Seamus Zhou on 03-15-2025 Ketones Ql (U) 5 mg/dl High Negative [facility] Lactic Acidon 03-15-2025 Lactate [Moles/Vol] 1.5 mmol/L Normal 0.0-2.0 [facility] Comment on above: Order Comment: Y Performed By: #### L 501.9520, L500.2500, L100.0100, L503.6005 ####[facility] [address] [facility] [place], [place], [id number] Lactic acid measurementOrder ed By: Seamus Zhou on 03-15-2025 Lactate [Moles/Vol] 1.5 mmol/L 0.0-2.0 [facility] M100.678on 03-15-2025 M100.678 Pending SARS-CoV-2 (COVID 19) Negative INFLUENZA A Negative INFLUENZA B Negative RSV PCR Negative Normal [facility] Comment on above: Performed By: #### L 100.0100, L503.7505, L500.2500, L500.3400, L501.2450 #### [facility] Laboratory [address] [place], [place], [id number] MCV (mean corpuscular volume ) determinationOrdered By: Seamus Zhou on 03-15-2025 MCV (RBC) [Entitic vol] 77.5 fL Low 81-99 [facility] Mean corpuscular hemoglobin (MCH) determinationOrdered By: Seamus Zhou on 03-15-2025 MCH (RBC) [Entitic mass] 27.5 pg 27.0-32.0 [facility] Mean corpuscular hemoglobin concentration (MCHC) determinationOrdered By: Seamus Zhou on 03-15-2025 MCHC (RBC) [Mass/Vol] 35.5 g/dL 32-36 [facility] Mean platelet volume determi nationOrdered By: Seamus Zhou on 03-15-2025 Platelet mean volume (Bld) [Entitic vol] 9.4 fL 6.2-12.0 [facility] Microscopic analysis of urin e for red blood cells (RBC)Ordered By: Seamus Zhou on 03-15-2025 Microscopic analysis of urine for red blood cells (RBC) 0-5 SEEN /hpf 0-5 [facility] Monocyte percentageOrdered B y: Seamus Zhou on 03-15-2025 Monocytes/100 WBC (Bld) 8.9 % 0-10 [facility] Mucus LM Ql (Urine sed)Order ed By: Seamus Zhou on 03-15-2025 Mucus Ql (Urine sed) 0 SEEN /hpf [facility] Neutrophil percentageOrdered By: Seamus Zhou on 03-15-2025 Neutrophils/100 WBC (Bld) 82.2 % High 47-70 [facility] Nitrite Test strip Ql (U)Ord ered By: Seamus Zhou on 03-15-2025 Nitrite Ql (U) Negative Negative [facility] Nucleated red blood cell per centageOrdered By: Seamus Zhou on 03-15-2025 Nucleated RBC/100 WBC (Bld) [Ratio] 0 % 0-5 [facility] Platelet countOrdered By: Marilin Zhou on 03-15-2025 Platelets (Bld) [#/Vol] 317 10*3/uL 150-450 [facility] Potassium measurement (mass/ volume)Ordered By: Seamus Zhou on 03-15-2025 Potassium (Unsp spec) [Mass/Vol] 3.1 mmol/L Low 3.3-5.1 [facility] Protein Test strip Ql (U)Ord ered By: Seamus Zhou on 03-15-2025 Protein Ql (U) 15 mg/dl High Negative [facility] RBC Auto (Bld) [#/Vol]Ordere d By: Seamus Zhou on 03-15-2025 RBC (Bld) [#/Vol] 4.26 10*6/uL 4.2-5.4 [facility] Serum creatinine measurement (mass/volume)Ordered By: Seamus Zhou on 03-15-2025 Creatinine [Mass/Vol] 0.75 mg/dL 0.70-1.20 [facility] Serum glucose measurement (m ass/volume)Ordered By: Seamus Zhou on 03-15-2025 Glucose [Mass/Vol] 154 mg/dL High 70-99 [facility] Serum or plasma calcium john urement (mass/volume)Ordered By: Seamus Zhou on 03-15-2025 Calcium [Mass/Vol] 9.1 mg/dL 7.6-11.0 [facility] Serum or plasma urea nitroge n measurement (mass/volume)Ordered By: Seamus Zhou on 03-15-2025 Urea nitrogen [Mass/Vol] 10 mg/dL 4-19 [facility] Sodium levelOrdered By: Yaya Zhou on 03-15-2025 Sodium [Moles/Vol] 126 mmol/L Low 133-145 [facility] Soft Tissue Neck WITH Contra ston 03-15-2025 Soft Tissue Neck WITH Contrast [facility] Imaging Services [address] [place] [address] Soft Tissue Neck WITH Contrast MR#: [id number] Acct: [id number] Name: DL PARSONS Rep #: [id number] : 1945 F 79 From: Jude Thomas MD PCP: Dr. Kaitlyn Condon MD Status: [facility] ER Study: Soft Tissue Neck WITH Contrast Date of Exam: 0 03/15/25 Exam# [id number] Ordering Dr: Seamus Zhou DO PROCEDURE: SOFT TISSUE NECK WITH CONTRAST 03/15/2025 REASON FOR EXAM: SUBMANDIBULAR FULLNESS, PAIN TECHNIQUE: CT soft tissue neck with IV contrast. Multiplanar 2D reconstructions were performed. CONTRAST: Isovue 370 VOLUME: 100 mL One or more dose reduction techniques were used (e.g., Automated exposure control, adjustment of the mA and/or kV according to patient size, use of iterative reconstruction technique). RADIATION DOSE SUMMARY: CTDlvol: 17.58 mGy DLP: 562.2 mGycm COMPARISON: None. FINDINGS: The thyroid gland is enlarged and heterogeneous, with large ill-defined hypodense lobulated lesion extending across the anterior thyroid isthmus and anterior left lobe, with macrocalcification. There is associated surrounding regional fat infiltration which is indistinct from the overlying strap muscles, with infiltration of the superior mediastinum anterior paratracheal fat. Superiorly there is mild subcutaneous fatty infiltration in the anterior neck. No drainable fluid collection. Innumerable regional cervical lymph nodes subcentimeter in size, which may be reactive but are indeterminate. The airway is patent and midline without any significant narrowing. Lung apices are clear. Major cervical vascular structures are patent, normal in course and caliber. Normal, symmetric appearance of the bilateral major salivary glands. Absent catawba ocular lenses. There appears to be a small right orbital venous varix posteromedially to the right globe. Visualized osseous structures are intact. Mild multilevel degenerative changes of the spine. No osseous lytic or blastic lesion identified. Well-aerated paranasal sinuses and bilateral mastoid air cells. CT/Soft Tissue Neck WITH Contrast IMPRESSION: Enlarged heterogeneous thyroid gland with a prominent lobulated hypodense mass lesion extending across the anterior thyroid isthmus, with ill-defined margins and surrounding fat infiltration at the anterior aspect of the neck, and numerous regional small lymph nodes. Findings are suspicious for an infiltrative/locally aggressive thyroid neoplasm, or potentially superinfected thyroid lesion. Reading Location: [facility] CC: Dr. Kaitlyn Condon MD; Dr. Seamus Zhou DO Rail Operator: Signed Normal [facility] Squamous epithelial cells de tection in urine sediment by light microscopyOrdered By: Seamus Zhou on 03-15-2025 Epithelial cells.squamous LM Ql (Urine sed) 0 SEEN /hpf 5-10 [facility] TSH DL <= 0.005 mIU/L QnOrde red By: Seamus Zhou on 03-15-2025 TSH Qn 2.390 uIU/mL 0.300-4.20 0 [facility] Thyroid Stim Hormone (TSH)on 03-15-2025 TSH 2.390 uIU/mL Normal 0.300-4.20 0 [facility] Comment on above: Performed By: #### L 501.9520, L500.2500, L100.0100, L503.6005 ####[facility] [address] [place], [address] Urinalysis, Completeon 03-15 RBC 0-5 SEEN Normal 0-5 [facility] Comment on above: Order Comment: CLEAN CATCH Performed By: #### L 100.0100, L503.7505, L500.2500, L500.3400, L501.2450 #### [facility] Laboratory [address] [place], [address] WBC 0-5 SEEN Normal 0-5 [facility] Comment on above: Order Comment: CLEAN CATCH Performed By: #### L 100.0100, L503.7505, L500.2500, L500.3400, L501.2450 #### [facility] [address] [place], [address] BACTERIA 0 SEEN Normal None Seen [facility] Comment on above: Order Comment: CLEAN CATCH Performed By: #### L 100.0100, L503.7505, L500.2500, L500.3400, L501.2450 #### [facility] [address] [place], [address] EPI,SQUAMOUS 0 SEEN Normal 5-10 [facility] Comment on above: Order Comment: CLEAN CATCH Performed By: #### L 100.0100, L503.7505, L500.2500, L500.3400, L501.2450 #### [facility] [address] [place], [address] Mucus Ql (Urine sed) 0 SEEN Normal [facility] Comment on above: Order Comment: CLEAN CATCH Performed By: #### L 100.0100, L503.7505, L500.2500, L500.3400, L501.2450 #### [facility] [place], [address] Urine clarityOrdered By: Christine Zhou on 03-15-2025 Clarity (U) Clear Clear [facility] Urine color determinationOrd ered By: Seamus Zhou on 03-15-2025 Color (U) Yellow Yellow [facility] Urine cultureOrdered By: Christine Zhou on 03-15-2025 Bacteria identified Cx Nom (U) Culture exhibits no growth. [facility] Urine glucose detectionOrder ed By: Seamus Zhou on 03-15-2025 Glucose Ql (U) Normal mg/dl Normal [facility] Urine leukocyte esterase det ection by dipstickOrdered By: Seamus Zhou on 03-15-2025 Leukocyte esterase Test strip Ql (U) Negative Negative [facility] Urine pHOrdered By: Seamus Sin gur on 03-15-2025 pH (U) 6.5 [pH] 5.0 - 8.0 [facility] Urine sediment bacteria coun t by microscopy (number/high power field)Ordered By: Seamus Zhou on 03-15-2025 Bacteria LM.HPF (Urine sed) [#/Area] 0 /[HPF] None Seen [facility] Urine specific gravity measu rementOrdered By: Seamus Zhou on 03-15-2025 Specific gravity (U) [Rel density] 1.010 1.002-1.03 0 [facility] Urine urobilinogen measureme ntOrdered By: Seamus Zhou on 03-15-2025 Urobilinogen Ql (U) Normal mg/dl Normal [facility] White blood cell (WBC) count Ordered By: Seamus Zhou on 03-15-2025 WBC (Bld) [#/Vol] 15.5 10*3/uL High 4.4-11.0 [facility] White blood cell countOrdere d By: Seamus Zhou on 03-15-2025 White blood cell count 0-5 SEEN /hpf 0-5 [facility] Bilirubin Test strip Ql (U)O rdered By: Kaitlyn Condon on 03-14-2025 Bilirubin Ql (U) Negative Negative [facility] Ketones Test strip Ql (U)Ord ered By: Kaitlyn Condon on 03-14-2025 Ketones Ql (U) Negative Negative [facility] Microscopic analysis of urin e for red blood cells (RBC)Ordered By: Kaitlyn Condon on 03-14-2025 Microscopic analysis of urine for red blood cells (RBC) 0 SEEN /hpf 0-5 [facility] Mucus LM Ql (Urine sed)Order ed By: Kaitlyn Condon on 03-14-2025 Mucus Ql (Urine sed) 0 SEEN /hpf [facility] Nitrite Test strip Ql (U)Ord ered By: Kaitlyn Condon on 03-14-2025 Nitrite Ql (U) Negative Negative [facility] Protein Test strip Ql (U)Ord ered By: Kaitlyn Condon on 03-14-2025 Protein Ql (U) 30 mg/dl High Negative [facility] Squamous epithelial cells de tection in urine sediment by light microscopyOrdered By: Kaitlyn Condon on 03-14-2025 Epithelial cells.squamous LM Ql (Urine sed) 0 SEEN /hpf 5-10 [facility] Urinalysis, Completeon 03-14 BACTERIA 0 SEEN Normal None Seen [facility] Comment on above: Order Comment: TREY CTOR TO SPECIFY Performed By: #### L 100.0100, L503.7505, L500.2500, L500.3400, L501.2450 #### [facility] [address] [place], [place], [id number] EPI,SQUAMOUS 0 SEEN Normal - [facility] Comment on above: Order Comment: TREY CTOR TO SPECIFY Performed By: #### L 100.0100, L503.7505, L500.2500, L500.3400, L501.2450 #### [facility] [address] [place], [place], [id number] Mucus Ql (Urine sed) 0 SEEN Normal [facility] Comment on above: Order Comment: TREY CTOR TO SPECIFY Performed By: #### L 100.0100, L503.7505, L500.2500, L500.3400, L501.2450 #### [facility] [address] [place], [address] RBC 0 SEEN Normal 0-5 [facility] Comment on above: Order Comment: TREY CTOR TO SPECIFY Performed By: #### L 100.0100, L503.7505, L500.2500, L500.3400, L501.2450 #### [facility] [address] [place], [address] WBC 0 SEEN Normal 0-5 [facility] Comment on above: Order Comment: TREY CTOR TO SPECIFY Performed By: #### L 100.0100, L503.7505, L500.2500, L500.3400, L501.2450 #### [facility] [address] [place], [address] Urine clarityOrdered By: Ron Condon on 03-14-2025 Clarity (U) Clear Clear [facility] Urine color determinationOrd ered By: Kaitlyn Condon on 03-14-2025 Color (U) Yellow Yellow [facility] Urine cultureOrdered By: Ron Condon on 03-14-2025 Bacteria identified Cx Nom (U) Streptococcus group G Abnormal [facility] Bacteria identified Cx Nom (U) Positive Abnormal [facility] Urine glucose detectionOrder ed By: Kaitlyn Condon on 03-14-2025 Glucose Ql (U) Normal mg/dl Normal [facility] Urine leukocyte esterase det ection by dipstickOrdered By: Kaitlyn Condon on 03-14-2025 Leukocyte esterase Test strip Ql (U) Negative Negative [facility] Urine pHOrdered By: Kaitlyn conti on 03-14-2025 pH (U) 6.0 [pH] 5.0 - 8.0 [facility] Urine sediment bacteria coun t by microscopy (number/high power field)Ordered By: Kaitlyn Condon on 03-14-2025 Bacteria LM.HPF (Urine sed) [#/Area] 0 /[HPF] None Seen [facility] Urine specific gravity measu rementOrdered By: Kaitlyn Condon on 03-14-2025 Specific gravity (U) [Rel density] 1.010 1.002-1.03 0 [facility] Urine urobilinogen measureme ntOrdered By: Kaitlyn Condon on 03-14-2025 Urobilinogen Ql (U) Normal mg/dl Normal [facility] White blood cell countOrdere d By: Kaitlyn Condon on 03-14-2025 White blood cell count 0 SEEN /hpf 0-5 [facility] Basic Metabolic Profile (BMP )on 02-19-2025 BUN/CRE 9.8 RATIO Low 10-20 [facility] Comment on above: Performed By: #### L 100.0100, L503.7505, L500.2500, L500.3400, L501.2450 #### [facility] [address] [place], [address] Calcium [Mass/Vol] 9.3 mg/dL Normal 7.6-11.0 [facility] Comment on above: Performed By: #### L 100.0100, L503.7505, L500.2500, L500.3400, L501.2450 #### [facility] [address] [place], [address] Chloride [Moles/Vol] 92 mmol/L Low 98-108 [facility] Comment on above: Performed By: #### L 100.0100, L503.7505, L500.2500, L500.3400, L501.2450 #### [facility] [address] [place], [address] CO2 [Moles/Vol] 24.0 mmol/L Normal 21.0-32.0 [facility] Comment on above: Performed By: #### L 100.0100, L503.7505, L500.2500, L500.3400, L501.2450 #### [facility] [address] [place], [address] Creatinine [Mass/Vol] 0.98 mg/dL Normal 0.70-1.20 [facility] Comment on above: Performed By: #### L 100.0100, L503.7505, L500.2500, L500.3400, L501.2450 #### [facility] [address] [place], [address] ECRCL 45.99 ml/min Low 50-250 [facility] Comment on above: Performed By: #### L 100.0100, L503.7505, L500.2500, L500.3400, L501.2450 #### [facility] [address] [place], [address] GAP 13 Normal 5-15 [facility] Comment on above: Performed By: #### L 100.0100, L503.7505, L500.2500, L500.3400, L501.2450 #### [facility] [address] [place], [address] GFR/1.73 sq M.predicted among non-blacks MDRD (S/P/Bld) [Vol rate/Area] 59 mL/min/{1.73_m2} Low >60 [facility] Comment on above: Result Comment: mL/m in/1.73m2 CKD-EPI Creatinine Equation (2020) Performed By: #### L 100.0100, L503.7505, L500.2500, L500.3400, L501.2450 #### [facility] [address] [place], [address] Glucose [Mass/Vol] 169 mg/dL High 70-99 [facility] Comment on above: Performed By: #### L 100.0100, L503.7505, L500.2500, L500.3400, L501.2450 #### [facility] [address] [place], [address] Potassium [Moles/Vol] 4.2 mmol/L Normal 3.3-5.1 [facility] Comment on above: Performed By: #### L 100.0100, L503.7505, L500.2500, L500.3400, L501.2450 #### [facility] [address] [place], [address] Sodium [Moles/Vol] 129 mmol/L Low 133-145 [facility] Comment on above: Performed By: #### L 100.0100, L503.7505, L500.2500, L500.3400, L501.2450 #### [facility] [address] [place], [address] Urea nitrogen [Mass/Vol] 10 mg/dL Normal 4-19 [facility] Comment on above: Performed By: #### L 100.0100, L503.7505, L500.2500, L500.3400, L501.2450 #### [facility] [address] [place], [address] Bilirubin Test strip Ql (U)O rdered By: Luis Weathers on 02-19-2025 Bilirubin Ql (U) Negative Negative [facility] CBC W/Diff, Automatedon 07 Absolute Lymph 0.81 X10 3/uL Low 0.83-4.51 [facility] Comment on above: Performed By: #### L 100.0100, L503.7505, L500.2500, L500.3400, L501.2450 #### [facility] [address] [place], [address] Absolute Neut 6.8 X10 3/uL Normal 2.0-7.7 [facility] Comment on above: Performed By: #### L 100.0100, L503.7505, L500.2500, L500.3400, L501.2450 #### [facility] [address] [place], [address] Basophils/100 WBC (Bld) 0.5 % Normal 0-1 [facility] Comment on above: Performed By: #### L 100.0100, L503.7505, L500.2500, L500.3400, L501.2450 #### [facility] [address] [place], [address] Eosinophils/100 WBC (Bld) 1.6 % Normal 0-5 [facility] Comment on above: Performed By: #### L 100.0100, L503.7505, L500.2500, L500.3400, L501.2450 #### [facility] [address] [place], [address] Erythrocyte distribution width (RBC) [Ratio] 15.2 % High 11.6-14.6 [facility] Comment on above: Performed By: #### L 100.0100, L503.7505, L500.2500, L500.3400, L501.2450 #### [facility] [address], [address] Hematocrit (Bld) [Volume fraction] 37.3 % Normal 37-47 [facility] Comment on above: Performed By: #### L 100.0100, L503.7505, L500.2500, L500.3400, L501.2450 #### [facility] [address], [address] Hemoglobin (Bld) [Mass/Vol] 12.2 g/dL Normal 12.0-15.0 [facility] Comment on above: Performed By: #### L 100.0100, L503.7505, L500.2500, L500.3400, L501.2450 #### [facility] [address], [address] IG% 0.200 Normal 0.0-0.9 [facility] Comment on above: Result Comment: IG% - Immature Granulocytes (promyelocytes, myelocytes and metamyelocytes) > 1% indicates that a LEFT SHIFT is Present. Performed By: #### L 100.0100, L503.7505, L500.2500, L500.3400, L501.2450 #### [facility] [address] [place], [address] Lymphocytes/100 WBC (Bld) 9.2 % Low 19-41 [facility] Comment on above: Performed By: #### L 100.0100, L503.7505, L500.2500, L500.3400, L501.2450 #### [facility] [address] [place], [address] MCH (RBC) [Entitic mass] 26.4 pg Low 27.0-32.0 [facility] Comment on above: Performed By: #### L 100.0100, L503.7505, L500.2500, L500.3400, L501.2450 #### [facility] [address] [place], [address] MCHC (RBC) [Mass/Vol] 32.7 g/dL Normal 32-36 [facility] Comment on above: Performed By: #### L 100.0100, L503.7505, L500.2500, L500.3400, L501.2450 #### [facility] [address] [place], [address] MCV (RBC) [Entitic vol] 80.7 fL Low 81-99 [facility] Comment on above: Performed By: #### L 100.0100, L503.7505, L500.2500, L500.3400, L501.2450 #### [facility] [address] [place], [address] Monocytes/100 WBC (Bld) 11.0 % High 0-10 [facility] Comment on above: Performed By: #### L 100.0100, L503.7505, L500.2500, L500.3400, L501.2450 #### [facility] [address] [place], [address] Neutrophils/100 WBC (Bld) 77.5 % High 47-70 [facility] Comment on above: Performed By: #### L 100.0100, L503.7505, L500.2500, L500.3400, L501.2450 #### [facility] [address] [place], [address] Nucleated RBC (Bld) [#/Vol] 0 10*3/uL Normal 0-5 [facility] Comment on above: Performed By: #### L 100.0100, L503.7505, L500.2500, L500.3400, L501.2450 #### [facility] [address] [place], [address] Platelet mean volume (Bld) [Entitic vol] 10.2 fL Normal 6.2-12.0 [facility] Comment on above: Performed By: #### L 100.0100, L503.7505, L500.2500, L500.3400, L501.2450 #### [facility] [address] [place], [address] Platelets (Bld) [#/Vol] 346 10*3/uL Normal 150-450 [facility] Comment on above: Performed By: #### L 100.0100, L503.7505, L500.2500, L500.3400, L501.2450 #### [facility] [address] [place], [address] RBC (Bld) [#/Vol] 4.62 10*6/uL Normal 4.2-5.4 [facility] Comment on above: Performed By: #### L 100.0100, L503.7505, L500.2500, L500.3400, L501.2450 #### [facility] [address] [place], [address] RDW SD 44.6 fl High 35.1-43.9 [facility] Comment on above: Performed By: #### L 100.0100, L503.7505, L500.2500, L500.3400, L501.2450 #### [facility] [address] [place], [address] WBC (Bld) [#/Vol] 8.8 10*3/uL Normal 4.4-11.0 [facility] Comment on above: Performed By: #### L 100.0100, L503.7505, L500.2500, L500.3400, L501.2450 #### [facility] [address] [place], [address] Chest PA and Lateralon 02-19 Chest PA and Lateral [facility] [address] [place] [place] [address] Chest PA and Lateral MR#: [id number] Acct: [id number] Name: DL PARSONS Annika Rep #: [id number] : 1945 F 79 From: Alyson ahuja MD PCP: Dr. Kaitlyn Condon MD Status: REG ER Study: Chest PA and Lateral Date of Exam: 02/19/25 Exam# [id number] Ordering Dr: Luis Weathers DO PROCEDURE: CHEST PA AND LATERAL 02/19/2025 REASON FOR EXAM: DYSPNEA TECHNIQUE: CHEST PA AND LATERAL COMPARISON: 2023 FINDINGS: Poor inspiratory effort. Exaggerated hilar bronchovascular markings suggesting mild congestion. Minimal bilateral perihilar bronchial wall thickening suggesting bronchitis. Bilateral basilar atelectasis are noted. No effusion. No pneumothorax. Normal cardiac size. Aortic atherosclerotic calcifications. Moderate dextroscoliosis. No definite acute trips abnormalities RAD/Chest PA and Lateral IMPRESSION: Poor inspiratory effort. Exaggerated hilar bronchovascular markings suggesting mild congestion. Minimal bilateral perihilar bronchial wall thickening suggesting bronchitis. New as compared to the. Follow-up is advised Reading Location: [id number] CC: Dr. Kaitlyn Condon MD; Luis Weathers DO Rail Operator: Signed Normal [facility] Emergency Department Summary on 02-19-2025 Emergency Department Summary [facility] Medical Records Department [address] [place] [address] Emergency Department Summary 02/19/25 MR#: [id number] Acct: [id number] Name: DL PARSONS Rep #: [id number] : 1945 79 From: Luis Weathers DO PCP: Dr. Kaitlyn Condon MD Status:DEP ER Location: ED HPI History of Present Illness Chief Complaint: General Illness Informant: patient and spouse/S.O. Narrative Narrative: Patient is a 79-year-old female with past medical history of hypertension hypothyroidism hyperlipidemia and oyd-weqwfug-rxpdxosfh type 2 diabetes. She states that she had recently gone to an urgent care secondary to concern for UTI and was placed on Macrobid. She states that she took the dose this evening and then developed upper abdominal discomfort and nausea. She states that she is unsure if the symptoms were related to the medication or could they have been from a potential cardiac event. She also states that she has had cough and shortness of breath and is unsure if she may have pneumonia. She denies any fevers or chills or known sick contacts but with worsening symptoms presents for evaluation [facility] Medical History (Updated 02/19/25 @ 04:[address] Luis Weathers DO) Family history of dementia Memory deficit Cancer On home oxygen therapy Hypertension Abdominal discomfort Occult blood positive stool Back pain Black stool Acute URI Urinary tract infection Need for influenza vaccination Syncope Wears glasses Post-menopausal Thyroid disease Diabetes Walker as ambulation aid Ambulates with cane Injury of head and neck Gastric reflux Non-smoker History of edema History of echocardiogram History of stress test Bronchitis Shortness of breath on exertion Obesity History of COVID-19 Incontinence Difficulty balancing when standing Knee pain Diarrhea Hemorrhoids COVID-19 Pancreatitis Asthma Arthritis Seasonal allergies Osteopenia Essential hypertension Ascending cholangitis Gallstone pancreatitis Home Medications ???Medication ???Instructions ???Recorded ???Last Taken ???Type lancets (Accu-Chek Multiclix #100 ea 07/02/20 Unknown History Lancet) geriatric multivitamin-min 1 tab PO .QOD 01/28/22 10/08/24 Hi story handicap placard #1 ea 07/06/23 Unknown Rx blood-glucose meter #1 ea 07/11/23 Unknown Rx lancets (Accu-Chek Softclix #100 ea 07/11/23 Unknown Rx Lancets) alcohol swabs 1 pad topical BID #100 ea 07/18/23 Unknown Rx blood sugar diagnostic (Accu-Chek #100 ea 10/31/23 Unknown Rx Guide test strips) potassium chloride 8 mEq 8 meq PO BID #180 caps 02/25/24 Rx capsule,extended release accu-check avivia control solutions #1 BOTTLE 07/23/24 Unknown Rx amlodipine 10 mg tablet 10 mg PO DAILY BLOOD PRESSURE #90 07/23/24 10/09/24 Rx tabs atorvastatin 10 mg tablet 10 mg PO QHS CHOLESTEROL #90 tabs 07/23/24 10/08/24 Rx ergocalciferol (vitamin D2) 1,250 1,250 mcg PO QWEEK #14 caps 07/2310/08/24 Rx mcg (50,000 unit) capsule irbesartan 300 1 tab PO DAILY BP #90 tabs 4 10/08/24 Rx mg-hydrochlorothiazide 12.5 mg tablet (Avalide) levothyroxine 75 mcg tablet 75 mcg PO DAILY THYROID #90 tabs 1 09/23/23 10/09/24 Rx metoprolol tartrate 25 mg tablet 25 mg PO BID BLOOD PRESSURE #180 1 09/23/23 10/09/24 Rx tabs omeprazole 20 mg tablet,delayed 20 mg PO QDAY #60 tabs 10/23/24 Un known Rx release albuterol sulfate 90 mcg/actuation 2 inh inhalation Q6H PRN 5 Unknown Rx aerosol inhaler bronchospasm #8.5 grams fluticasone furoate 100 1 inh inhalation Q24H #90 ea 10/29 Unknown Rx mcg/actuation blister powder for inhalation metformin 500 mg tablet See Rx Instructions PO BID 5 Unknown Rx DIABETES #270 tabs nitrofurantoin 100 mg PO Q12H 5 days #10 caps 01/06 Unknown Rx monohydrate/macrocrystals 100 mg capsule (Macrobid) omeprazole 20 mg capsule,delayed 20 mg PO DAILY 02/18/25 Unknown Hi story release Allergy/AdvReac Type Severity Reaction Status Date / Time Penicillins Allergy Rash Verified 02/18/25 21:17 Sulfa (Sulfonamide Allergy Rash Verified 02/18/25 21:17 Antibiotics) calcium AdvReac Constipatio Verified 02/18/25 21:17 n sertraline AdvReac Constipatio Verified 02/18/25 21:17 n Family History Mother Diabetes Heart disease Arthritis Hypertension Hyperlipemia Father Colon cancer Heart disease Hypertension Hyperlipemia Cancer prostate Myocardial infarction Surgical History Hx laparoscopic cholecystectomy History of ERCP History of colonoscopy Cataracts, bilateral H/O: hysterectomy Cholecystectomy planned Social History (Reviewed (more content not included)... Normal [facility] Ketones Test strip Ql (U)Ord ered By: Luis Weathers on 02-19-2025 Ketones Ql (U) Negative Negative [facility] L499.0042on 02-19-2025 Trop T High Sen 13 ng/L Normal <=14 [facility] Comment on above: Performed By: #### L 499.0042 ####[facility] [id number] [facility] [place], [address] L501.4021on 02-19-2025 Trop T High Sen 20 ng/L High <=14 [facility] Comment on above: Performed By: #### L 501.4021 ####[facility] [id number] [facility] [place], [address] L503.7505on 02-19-2025 Natriuretic peptide B (Bld) [Mass/Vol] 151 pg/mL Normal <=1800 [facility] Comment on above: Result Comment: Hear t Failure Unlikely: < 300 pg/mL Heart Failure Likely < 50 Years: > 450 pg/mL 50-75 Years: > 900 pg/mL >75 Years: > 1800 pg/mL Performed By: #### L 100.0100, L503.7505, L500.2500, L500.3400, L501.2450 #### [facility] [address] [place], [address] Lipaseon 02-19-2025 Lipase [Catalytic activity/Vol] 27 U/L Normal 13-75 [facility] Comment on above: Result Comment: Madiha canas note: LIPASE revised reference range effective 22. New Lipase methodology. Expected to produce lower values than the previous assay method. NEW Reference Range: 13 - 75 U/L Performed By: #### L 100.0100, L503.7505, L500.2500, L500.3400, L501.2450 #### [facility] [address] [place], [address] Liver Profileon 02-19-2025 Albumin [Mass/Vol] 4.0 g/dL Normal 3.4-4.8 [facility] Comment on above: Performed By: #### L 100.0100, L503.7505, L500.2500, L500.3400, L501.2450 #### [facility] [address] [place], [address] ALK PHOS 118 U/L High 35-104 [facility] Comment on above: Performed By: #### L 100.0100, L503.7505, L500.2500, L500.3400, L501.2450 #### [facility] [address] [place], [address] ALT [Catalytic activity/Vol] 47 U/L High <=34 [facility] Comment on above: Performed By: #### L 100.0100, L503.7505, L500.2500, L500.3400, L501.2450 #### [facility] [address] [place], [address] AST [Catalytic activity/Vol] 58 U/L High <=31 [facility] Comment on above: Performed By: #### L 100.0100, L503.7505, L500.2500, L500.3400, L501.2450 #### [facility] [address] [place], [address] Bilirubin [Mass/Vol] 1.65 mg/dL High 0.00-1.30 [facility] Comment on above: Performed By: #### L 100.0100, L503.7505, L500.2500, L500.3400, L501.2450 #### [facility] [address] [place], [address] Bilirubin.direct [Mass/Vol] 0.68 mg/dL High 0.00-0.30 [facility] Comment on above: Performed By: #### L 100.0100, L503.7505, L500.2500, L500.3400, L501.2450 #### [facility] [address] [place], [address] Globulin (S) [Mass/Vol] 1.8 g/dL Low 2.2-4.2 [facility] Comment on above: Performed By: #### L 100.0100, L503.7505, L500.2500, L500.3400, L501.2450 #### [facility] [address] [place], [address] T PROT 5.8 g/dL Low 5.9-8.4 [facility] Comment on above: Performed By: #### L 100.0100, L503.7505, L500.2500, L500.3400, L501.2450 #### [facility] [address] [place], [address] Microscopic analysis of urin e for red blood cells (RBC)Ordered By: Luis Weathers on 02-19-2025 Microscopic analysis of urine for red blood cells (RBC) 0 SEEN /hpf 0-5 [facility] Mucus LM Ql (Urine sed)Order ed By: Luis Weathers on 02-19-2025 Mucus Ql (Urine sed) 0 SEEN /hpf [facility] Nitrite Test strip Ql (U)Ord ered By: Luis Weathers on 02-19-2025 Nitrite Ql (U) Negative Negative [facility] Protein Test strip Ql (U)Ord ered By: Luis Weathers on 02-19-2025 Protein Ql (U) 30 mg/dl High Negative [facility] Squamous epithelial cells de tection in urine sediment by light microscopyOrdered By: Lius Weathers on 02-19-2025 Epithelial cells.squamous LM Ql (Urine sed) 0-5 SEEN /hpf 5-10 [facility] Transitional cells detection in urine sediment by light microscopyOrdered By: Luis Weathers on 02-19-2025 Transitional cells LM Ql (Urine sed) 0-5 SEEN /hpf 0-5 [facility] Troponin T.cardiac [Mass/vol ume] in Serum or Plasma by High sensitivity methodOrdered By: Luis Weathers on 02-19-2025 Troponin T.cardiac High sensitivity method [Mass/Vol] 13 ng/L <14 [facility] Urinalysis, Completeon 02-19 BACTERIA 2+ /hpf Normal None Seen [facility] Comment on above: Order Comment: TREY CTOR TO SPECIFY Performed By: #### L 100.0100, L503.7505, L500.2500, L500.3400, L501.2450 #### [facility] [address] [place], [place], [id number] EPI,SQUAMOUS 0-5 SEEN Normal 5-10 [facility] Comment on above: Order Comment: TREY CTOR TO SPECIFY Performed By: #### L 100.0100, L503.7505, L500.2500, L500.3400, L501.2450 #### [facility] [address], [place], [id number] EPI,TRANSITION 0-5 SEEN Normal 0-5 [facility] Comment on above: Order Comment: TREY CTOR TO SPECIFY Performed By: #### L 100.0100, L503.7505, L500.2500, L500.3400, L501.2450 #### [facility] [address] [place], [address] WBC 0-5 SEEN Normal 0-5 [facility] Comment on above: Order Comment: COLLE CTOR TO SPECIFY Performed By: #### L 100.0100, L503.7505, L500.2500, L500.3400, L501.2450 #### [facility] [address] [place], [address] Mucus Ql (Urine sed) 0 SEEN Normal [facility] Comment on above: Order Comment: TREY CTOR TO SPECIFY Performed By: #### L 100.0100, L503.7505, L500.2500, L500.3400, L501.2450 #### [facility] [address] [place], [address] RBC 0 SEEN Normal 0-5 [facility] Comment on above: Order Comment: TREY CTOR TO SPECIFY Performed By: #### L 100.0100, L503.7505, L500.2500, L500.3400, L501.2450 #### [facility] [address] [place], [address] Urine clarityOrdered By: Chandana Weathers on 02-19-2025 Clarity (U) Clear Clear [facility] Urine color determinationOrd ered By: Luis Weathers on 02-19-2025 Color (U) Yellow Yellow [facility] Urine glucose detectionOrder ed By: Luis Weathers on 02-19-2025 Glucose Ql (U) Normal mg/dl Normal [facility] Urine leukocyte esterase det ection by dipstickOrdered By: Luis Weathers on 02-19-2025 Leukocyte esterase Test strip Ql (U) Negative Negative [facility] Urine pHOrdered By: Luis vásquez on 02-19-2025 pH (U) 6.0 [pH] 5.0 - 8.0 [facility] Urine sediment bacteria coun t by microscopy (number/high power field)Ordered By: Luis Weathers on 02-19-2025 Bacteria LM.HPF (Urine sed) [#/Area] 2 /[HPF] None Seen [facility] Urine specific gravity measu rementOrdered By: Luis Weathers on 02-19-2025 Specific gravity (U) [Rel density] 1.015 1.002-1.03 0 [facility] Urine urobilinogen measureme ntOrdered By: Luis Weathers on 02-19-2025 Urobilinogen Ql (U) Normal mg/dl Normal [facility] White blood cell countOrdere d By: Luis Weathers on 02-19-2025 White blood cell count 0-5 SEEN /hpf 0-5 [facility] Absolute lymphocyte countOrd ered By: Luis Weathers on 02-18-2025 Lymphocytes Auto (Unsp spec) [#/Vol] 0.81 10*3/uL Low 0.83-4.51 [facility] Absolute neutrophil countOrd ered By: Luis Weathers on 02-18-2025 Neutrophils (Bld) [#/Vol] 6.8 10*3/uL 2.0-7.7 [facility] Anion gap in Serum or Plasma Ordered By: Luis Weathers on 02-18-2025 Anion gap [Moles/Vol] 13 mmol/L 5-15 [facility] Automated lymphocyte count a s percentage of total leukocytesOrdered By: Luis Weathers on 02-18-2025 Lymphocytes/100 WBC Auto (Unsp spec) 9.2 % Low 19-41 [facility] BUN/creatinine ratioOrdered By: Luis Weathers on 02-18-2025 Urea nitrogen/Creatinine [Mass ratio] 9.8 mg/mg Low 10-20 [facility] Basophil percentageOrdered B y: Luis Weathers on 02-18-2025 Basophils/100 WBC (Bld) 0.5 % 0-1 [facility] Bilirubin directOrdered By: Luis Weathers on 02-18-2025 Bilirubin.direct [Mass/Vol] 0.68 mg/dL High 0.00-0.30 [facility] Bilirubin, totalOrdered By: Luis Weathers on 02-18-2025 Bilirubin [Mass/Vol] 1.65 mg/dL High 0.00-1.30 [facility] Carbon dioxide, total [Moles /volume] in Central venous bloodOrdered By: Luis Weathers on 02-18-2025 CO2 [Moles/Vol] 24.0 mmol/L 21.0-32.0 [facility] Chloride assayOrdered By: Dennsie Weathers on 02-18-2025 Chloride [Moles/Vol] 92 mmol/L Low 98-108 [facility] Eosinophil percentageOrdered By: Luis Weathers on 02-18-2025 Eosinophils/100 WBC (Bld) 1.6 % 0-5 [facility] Erythrocyte distribution wid th ratioOrdered By: Luis Weathers on 02-18-2025 Erythrocyte distribution width (RBC) [Ratio] 15.2 % High 11.6-14.6 [facility] Erythrocyte distribution wid th standard deviationOrdered By: Luis Weathers on 02-18-2025 Erythrocyte distribution width (RBC) [Ratio] 44.6 fl High 35.1-43.9 [facility] Glomerular filtration rate ( GFR) estimation/1.73 sq m using serum, plasma, or whole bOrdered By: Luis Weathers on 02-18-2025 GFR/1.73 sq M.predicted among non-blacks MDRD (S/P/Bld) [Vol rate/Area] 59 mL/min/{1.73_m2} Low >60 [facility] Comment on above: mL/min/1.73m2 CKD-EP I Creatinine Equation (2020) Hematocrit Auto (Bld) [Volum e fraction]Ordered By: Luis Weathers on 02-18-2025 Hematocrit (Bld) [Volume fraction] 37.3 % 37-47 [facility] Hemoglobin measurementOrdere d By: Luis Weathers on 02-18-2025 Hemoglobin (Bld) [Mass/Vol] 12.2 g/dL 12.0-15.0 [facility] Immature granulocytes/100 WB C Auto (Bld)Ordered By: Luis Weathers on 02-18-2025 Immature granulocytes/100 WBC (Bld) 0.200 % 0.0-0.9 [facility] Comment on above: IG% - Immature Granu locytes (promyelocytes, myelocytes and metamyelocytes) > 1% indicates that a LEFT SHIFT is Present. Laboratory - Chemistry and C hemistry - challengeOrdered By: Luis Weathers on 02-18-2025 AST [Catalytic activity/Vol] 58 U/L High <32 [facility] Lipase measurementOrdered By : Luis Weathers on 02-18-2025 Lipase [Catalytic activity/Vol] 27 U/L 13-75 [facility] Comment on above: Please note:LIPASE r evised reference range effective 22. New Lipase methodology. Expected to produce lower values than the previous assay method. NEW Reference Range: 13 - 75 U/L MCV (mean corpuscular volume ) determinationOrdered By: Luis Weathers on 02-18-2025 MCV (RBC) [Entitic vol] 80.7 fL Low 81-99 [facility] Mean corpuscular hemoglobin (MCH) determinationOrdered By: Luis Weathers on 02-18-2025 MCH (RBC) [Entitic mass] 26.4 pg Low 27.0-32.0 [facility] Mean corpuscular hemoglobin concentration (MCHC) determinationOrdered By: Luis Weathers on 02-18-2025 MCHC (RBC) [Mass/Vol] 32.7 g/dL 32-36 [facility] Mean platelet volume determi nationOrdered By: Luis Weathers on 02-18-2025 Platelet mean volume (Bld) [Entitic vol] 10.2 fL 6.2-12.0 [facility] Monocyte percentageOrdered B y: Luis Weathers on 02-18-2025 Monocytes/100 WBC (Bld) 11.0 % High 0-10 [facility] Natriuretic peptide.B prohor chris N-Terminal [Mass/volume] in Serum or PlasmaOrdered By: Luis Weathers on 02-18-2025 Natriuretic peptide.B prohormone N-Terminal [Mass/Vol] 151 pg/mL <1800 [facility] Comment on above: Heart Failure Unlike ly: < 300 pg/mLHeart Failure Likely< 50 Years: > 450 pg/mL50-75 Years: > 900 pg/mL>75 Years: > 1800 pg/mL Neutrophil percentageOrdered By: Luis Weathers on 02-18-2025 Neutrophils/100 WBC (Bld) 77.5 % High 47-70 [facility] No Panel InformationOrdered By: Luis Weathers on 02-18-2025 58 U/L High <32 [facility] Nucleated red blood cell per centageOrdered By: Luis Weathers on 02-18-2025 Nucleated RBC/100 WBC (Bld) [Ratio] 0 % 0-5 [facility] Platelet countOrdered By: Dennise Weathers on 02-18-2025 Platelets (Bld) [#/Vol] 346 10*3/uL 150-450 [facility] Potassium measurement (mass/ volume)Ordered By: Luis Weathers on 02-18-2025 Potassium (Unsp spec) [Mass/Vol] 4.2 mmol/L 3.3-5.1 [facility] RBC Auto (Bld) [#/Vol]Ordere d By: Luis Weathers on 02-18-2025 RBC (Bld) [#/Vol] 4.62 10*6/uL 4.2-5.4 [facility] Serum creatinine measurement (mass/volume)Ordered By: Luis Weathers on 02-18-2025 Creatinine [Mass/Vol] 0.98 mg/dL 0.70-1.20 [facility] Serum globulin measurementOr dered By: Luis Weathers on 02-18-2025 Globulin (S) [Mass/Vol] 1.8 g/dL Low 2.2-4.2 [facility] Serum glucose measurement (m ass/volume)Ordered By: Luis Weathers on 02-18-2025 Glucose [Mass/Vol] 169 mg/dL High 70-99 [facility] Serum or plasma alanine bay otransferase (ALT) measurementOrdered By: Luis Weathers on 02-18-2025 ALT [Catalytic activity/Vol] 47 U/L High <35 [facility] Serum or plasma albumin john urement (mass/volume)Ordered By: Luis Weathers on 02-18-2025 Albumin [Mass/Vol] 4.0 g/dL 3.4-4.8 [facility] Serum or plasma alkaline orquidea sphatase measurementOrdered By: Luis Weathers on 02-18-2025 ALP [Catalytic activity/Vol] 118 U/L High 35-104 [facility] Serum or plasma calcium john urement (mass/volume)Ordered By: Luis Weathers on 02-18-2025 Calcium [Mass/Vol] 9.3 mg/dL 7.6-11.0 [facility] Serum or plasma urea nitroge n measurement (mass/volume)Ordered By: Luis Weathers on 02-18-2025 Urea nitrogen [Mass/Vol] 10 mg/dL 4-19 [facility] Sodium levelOrdered By: Benton Weathers on 02-18-2025 Sodium [Moles/Vol] 129 mmol/L Low 133-145 [facility] Total proteinOrdered By: Chandana Weathers on 02-18-2025 Protein [Mass/Vol] 5.8 g/dL Low 5.9-8.4 [facility] Troponin T.cardiac [Mass/vol ume] in Serum or Plasma by High sensitivity methodOrdered By: Luis Weathers on 02-18-2025 Troponin T.cardiac High sensitivity method [Mass/Vol] 20 ng/L High <14 [facility] White blood cell (WBC) count Ordered By: Luis Weathers on 02-18-2025 WBC (Bld) [#/Vol] 8.8 10*3/uL 4.4-11.0 [facility] Urine Cultureon 02-17-2025 URC Below infection leve l. Gram negative paul [place] Count <1000 Normal [facility] Comment on above: Performed By: #### L 100.0100, L503.7505, L500.2500, L500.3400, L501.2450 #### [facility] [address] [place] [address], [id number] Laboratory - Chemistry and C hemistry - challengeOrdered By: Miriam Garcia on 02-16-2025 Bilirubin Ql (U) Negative [facility] Glucose Ql (U) Negative [facility] Ketones Ql (U) Negative [facility] pH (U) 6.0 [pH] [facility] Specific gravity (U) [Rel density] 1.005 [facility] Urobilinogen (U) [Mass/Vol] 0.1499205 mg/dL [facility] Laboratory - Hematology and Cell countsOrdered By: Miriam Garcia on 02-16-2025 Hemoglobin Ql (U) Hemolyzed [facility] Laboratory - Specimen inform ationOrdered By: Miriam Garcia on 02-16-2025 Clarity (U) Cloudy [facility] Color (U) YELLOW [facility] Laboratory - UrinalysisOrder ed By: Miriam Garcia on 02-16-2025 Nitrite Ql (U) Negative [facility] Protein Ql (U) Negative [facility] No Panel InformationOrdered By: Miriam Garcia on 02-16-2025 Urine Leukocytes Positive [facility] Urine Non-Hemolyzed Blood Large [facility] YELLOW [facility] Cloudy [facility] Negative [facility] 1.005 [facility] 6.0 [facility] 0.2 mg/dL [facility] Hemolyzed [facility] Large [facility] Positive [facility] Urgent Care Visit Reporton 0 02-16-2025 Urgent Care Visit Report [facility] [address], [address] [place] [address] OFFICE VISIT Date of Service: 02/16/25 MR#: [id number] Acct: [id number] Name: DL PARSONS Rep #: [id number] : 1945 Provider: ROCIO Garcia Age/Sex: 79/F Location[facility] Status: Signed Intake Vital Signs 12/19/24 08:39 Height 4 ft 11 in Weight: 194 lb 2 oz BMI 39.2 BP 144/71 H Blood Pressure Location Rt brachial Position Sitting Respiration 16 Pulse 68 Pulse Source Monitor Temp 98.2 F Temp Source Temporal Pulse Oximetry (%) 93 Oxygen Delivery Method room air Intake Visit Reasons: CONCERN FOR UTI Accompanied by: Self Allergies Penicillins Allergy (Verified 02/16/25 10:57) Rash Sulfa (Sulfonamide Antibiotics) Allergy (Verified 02/16/25 10:57) Rash calcium Adverse Reaction (Verified 02/16/25 10:57) Constipation sertraline Adverse Reaction (Verified 02/16/25 10:57) Constipation Medications ???Medication ???Instructions ???Recorded ???Confirmed ???Type lancets (Accu-Chek Multiclix #100 ea 07/02/20 12/19/24 History Lancet) geriatric multivitamin-min 1 tab PO .QOD 01/28/22 12/19/24 Hi story handicap placard #1 ea 07/06/23 12/19/24 Rx blood-glucose meter #1 ea 07/11/23 12/19/24 Rx lancets (Accu-Chek Softclix #100 ea 07/11/23 12/19/24 Rx Lancets) alcohol swabs 1 pad topical BID #100 ea 07/18/23 12/19/24 Rx blood sugar diagnostic (Accu-Chek #100 ea 10/31/23 12/19/24 Rx Guide test strips) potassium chloride 8 mEq 8 meq PO BID #180 caps 02/25/24 Rx capsule,extended release accu-check avivia control solutions #1 BOTTLE 07/23/24 12/19/24 Rx amlodipine 10 mg tablet 10 mg PO DAILY BLOOD PRESSURE #90 07/23/24 12/19/24 Rx tabs atorvastatin 10 mg tablet 10 mg PO QHS CHOLESTEROL #90 tabs 07/23/24 12/19/24 Rx ergocalciferol (vitamin D2) 1,250 1,250 mcg PO QWEEK #14 caps 07/2312/19/24 Rx mcg (50,000 unit) capsule irbesartan 300 1 tab PO DAILY BP #90 tabs 4 12/19/24 Rx mg-hydrochlorothiazide 12.5 mg tablet (Avalide) levothyroxine 75 mcg tablet 75 mcg PO DAILY THYROID #90 tabs 1 09/23/23 12/19/24 Rx metoprolol tartrate 25 mg tablet 25 mg PO BID BLOOD PRESSURE #180 1 09/23/23 12/19/24 Rx tabs omeprazole 20 mg tablet,delayed 20 mg PO QDAY #60 tabs 10/23/24 Rx release albuterol sulfate 90 mcg/actuation 2 inh inhalation Q6H PRN 5 12/19/24 Rx aerosol inhaler bronchospasm #8.5 grams fluticasone furoate 100 1 inh inhalation Q24H #90 ea 10/2912/19/24 Rx mcg/actuation blister powder for inhalation metformin 500 mg tablet See Rx Instructions PO BID 5 Rx DIABETES #270 tabs nitrofurantoin 100 mg PO Q12H 5 days #10 caps 01/0602/16/25 Rx monohydrate/macrocrystals 100 mg capsule (Macrobid) Have you fallen in the past year?: No Nurse's Note: Patient has concerns for a UTI. Patient states she has burning and frequency that started Thurs. Patient states it become more intense this morning. [facility] Medical History (Updated 02/16/25 @ 11:06 by Miriam Garcia NP-C) Family history of dementia Memory deficit Cancer On home oxygen therapy Hypertension Abdominal discomfort Occult blood positive stool Back pain Black stool Acute URI Urinary tract infection Need for influenza vaccination Syncope Wears glasses Post-menopausal Thyroid disease Diabetes Walker as ambulation aid Ambulates with cane Injury of head and neck Gastric reflux Non-smoker History of edema History of echocardiogram History of stress test Bronchitis Shortness of breath on exertion Obesity History of COVID-19 Incontinence Difficulty balancing when standing Knee pain Diarrhea Hemorrhoids COVID-19 Pancreatitis Asthma Arthritis Seasonal allergies Osteopenia Essential hypertension Ascending cholangitis Gallstone pancreatitis Surgical History Hx laparoscopic cholecystectomy History of ERCP History of colonoscopy Cataracts, bilateral H/O: hysterectomy Cholecystectomy planned Family History Mother Diabetes Heart disease Arthritis Hypertension Hyperlipemia Father Colon cancer Heart disease Hypertension Hyperlipemia Cancer prostate Myocardial infarction Social History Smoking Status: Never smoker alcohol intake: never substance use type: does not use what type of physical activity do you participate in: other details: yard work additional social history: pt denies vaping, denies marijuana use, denies edibles, denies aspirin, denies ibuprofen use. HPI HPI (more content not included)... Normal [facility] Urine cultureOrdered By: Shubham Garcia on 02-16-2025 Bacteria identified Cx Nom (U) Negative Abnormal [facility] Bone density reportOrdered B y: Kevon Crenshaw on 02-05-2025 Study report Skeletal system DXA [facility] [address] [place], [place] [id number] Dexa Bone Density Study MR#: [id number] Acct: [id number] Name: DL PARSONS Rep #: [id number] : 1945 F 79 From: Amelia Crenshaw MD PCP: Dr. Kaitlyn Condon MD Status: [facility] Study:Dexa Bone Density Study Date of Exam: 02/05/25 Exam# [id number] Ordering Dr: Kaitlyn Condon MD PROCEDURE: DEXA BONE DENSITY STUDY 02/05/2025 REASON FOR EXAM: OSTEOPOROSIS F, age 79 y/o . TECHNIQUE: DEXA BONE DENSITY STUDY COMPARISON: None FINDINGS: BMD and T-SCORES Lumbar spine: 0.942 g/cm2, T-score -0.3 Levels: L1 through L2 Left femoral neck: 0.710 g/cm2, T-score -1.2 Femoral neck comparison data not recommended for monitoring change. Left total hip: 0.826 g/cm2, T-score -1.0 Right femoral neck: 0.809 g/cm2, T-score -0.4 Femoral neck comparison data not recommended for monitoring change. Right total hip: 0.853 g/cm2, T-score -0.7 The World Health Organization has defined the following categories based on bonedensity: Normal bone density: T-score equal to or greater than -1.0 Osteopenia: T-score between -1.0 and -2.5 Osteoporosis: T-score equal to or less than -2.5 FRAX (or Comparable) Fracture Risk Assessment: 10 Year Probability of Fracture: Major Osteoporotic Fracture: 16% Hip Fracture: 3.5% (Note: FRAX is not to be reported in setting of normal range bone density, osteoporosis on DEXA, known history of osteoporosis, prior osteoporotic hip or vertebral fracture, or for any patient undergoing pharmacological treatment for bone loss.) The National Osteoporosis Foundation (NOF) recommends pharmacological treatment for patients with a FRAX 10-year risk of 3% or higher for a hip fracture, or 20% or higher for a major osteoporotic fracture, to prevent osteoporosis and reduce fracture risk. The patient does meet the pharmacological treatment recommendations for prevention of osteoporosis. BD/Dexa Bone Density Study IMPRESSION: OSTEOPENIA. Reading Location: [id number] CC: Dr. Kaitlyn Condon MD ~ Rail Operator: Signed [facility] Breast imaging reportOrdered By: Luis Lynne on 02-05-2025 Study report [facility] [address] [place] [address] SCRN MAMM (CAD)W/GONSALO BILAT MR#: [id number] Acct: [id number] Name: DL PARSONS Rep #: [id number] : 1945 F 79 From: Flory Lynne MD PCP: Dr. Kaitlyn Condon MD Status: [facility] Study:SCRN MAMM (CAD)W/GONSALO BILAT Date of Exa m: 02/05/25 Exam# [id number] Ordering Dr: Kaitlyn Condon MD EXAM: SCRN MAMM (CAD)W/GONSALO BILAT DATE: 02/05/2025 CLINICAL HISTORY: F, Age 79 y/o , BREAST CANCER SCREENING History of maternal aunt with breast cancer. TECHNIQUE: SCRN MAMM (CAD)W/GONSALO BILAT COMPARISON: Prior exam(s) dated January 30, 2024.. FINDINGS: TISSUE DENSITY: The breast tissue is composed of scattered areas of fibroglandular density. Bilateral Breast Mammographic Findings: No significant masses, calcifications or other abnormalities are identified. Stable scattered bilateral calcifications most likely secretory calcifications. No focal cluster is seen. Stable fat containing bilateral axillary lymph nodes. No suspicious masses, areas of developing architectural distortion, or suspicious calcifications. There has been no significant interval change. BI/SCRN MAMM (CAD)W/GONSALO BILAT IMPRESSION: Stable examination. OVERALL FINAL ASSESSMENT BI-RADS 2: BENIGN RECOMMEND ANNUAL MAMMOGRAPHIC SCREENING. RECOMMENDATION: Routine annual follow-up in 1 Year A letter with findings and recommendations will be mailed to the patient. Reading Location: [facility] CC: Dr. Kaitlyn Condon MD ~ Rail Operator: Signed [facility] Dexa Bone Density Studyon Dexa Bone Density Study [facility] [address] [place] [address] Dexa Bone Density Study MR#: [id number] Acct: [id number] Name: DL PARSONS Rep #: [id number] : 1945 F 79 From: Kevon Crenshaw MD PCP: Dr. Kaitlyn Condon MD Status: REG CLI Study: Dexa Bone Density Study Date of Exam: 02/05/25 Exam# [id number] Ordering Dr: Kaitlyn Condon MD PROCEDURE: DEXA BONE DENSITY STUDY 02/05/2025 REASON FOR EXAM: OSTEOPOROSIS F, age 79 y/o . TECHNIQUE: DEXA BONE DENSITY STUDY COMPARISON: None FINDINGS: BMD and T-SCORES Lumbar spine: 0.942 g/cm2, T-score -0.3 Levels: L1 through L2 Left femoral neck: 0.710 g/cm2, T-score -1.2 Femoral neck comparison data not recommended for monitoring change. Left total hip: 0.826 g/cm2, T-score -1.0 Right femoral neck: 0.809 g/cm2, T-score -0.4 Femoral neck comparison data not recommended for monitoring change. Right total hip: 0.853 g/cm2, T-score -0.7 The World Health Organization has defined the following categories based on bone density: Normal bone density: T-score equal to or greater than -1.0 Osteopenia: T-score between -1.0 and -2.5 Osteoporosis: T-score equal to or less than -2.5 FRAX (or Comparable) Fracture Risk Assessment: 10 Year Probability of Fracture: Major Osteoporotic Fracture: 16% Hip Fracture: 3.5% (Note: FRAX is not to be reported in setting of normal range bone density, osteoporosis on DEXA, known history of osteoporosis, prior osteoporotic hip or vertebral fracture, or for any patient undergoing pharmacological treatment for bone loss.) The National Osteoporosis Foundation (NOF) recommends pharmacological treatment for patients with a FRAX 10-year risk of 3% or higher for a hip fracture, or 20% or higher for a major osteoporotic fracture, to prevent osteoporosis and reduce fracture risk. The patient does meet the pharmacological treatment recommendations for prevention of osteoporosis. BD/Dexa Bone Density Study IMPRESSION: OSTEOPENIA. Reading Location: [id number] CC: Dr. Kaitlyn Condon MD Rail Operator: Signed Normal [facility] SCRN MAMM (CAD)W/GONSALO BILATo n 02-05-2025 SCRN MAMM (CAD)W/GONSALO BILAT [facility] [address] [place], [place] [address] SCRN MAMM (CAD)W/GONSALO BILAT MR#: [id number] Acct: [id number] Name: DL PARSONS Rep #: [id number] : 1945 F 79 From: Luis chavez MD PCP: Dr. Kaitlyn Condon MD Status: REG CLI Study: SCRN MAMM (CAD)W/GONSALO BILAT Date of Exam: 01/14 12/07 Exam# [id number] Ordering Dr: Kaitlyn Condon MD EXAM: SCRN MAMM (CAD)W/GONSALO BILAT DATE: 02/05/2025 CLINICAL HISTORY: F, Age 79 y/o , BREAST CANCER SCREENING History of maternal aunt with breast cancer. TECHNIQUE: SCRN MAMM (CAD)W/GONSALO BILAT COMPARISON: Prior exam(s) dated January 30, 2024.. FINDINGS: TISSUE DENSITY: The breast tissue is composed of scattered areas of fibroglandular density. Bilateral Breast Mammographic Findings: No significant masses, calcifications or other abnormalities are identified. Stable scattered bilateral calcifications most likely secretory calcifications. No focal cluster is seen. Stable fat containing bilateral axillary lymph nodes. No suspicious masses, areas of developing architectural distortion, or suspicious calcifications. There has been no significant interval change. BI/SCRN MAMM (CAD)W/GONSALO BILAT IMPRESSION: Stable examination. OVERALL FINAL ASSESSMENT BI-RADS 2: BENIGN RECOMMEND ANNUAL MAMMOGRAPHIC SCREENING. RECOMMENDATION: Routine annual follow-up in 1 Year A letter with findings and recommendations will be mailed to the patient. Reading Location: [facility] CC: Dr. Kaitlyn Condon MD Rail Operator: Signed Normal [facility] Absolute lymphocyte countOrd ered By: Kaitlyn Condon on 01-29-2025 Lymphocytes Auto (Unsp spec) [#/Vol] 2.23 10*3/uL 0.83-4.51 [facility] Absolute neutrophil countOrd ered By: Kaitlyn Condon on 01-29-2025 Neutrophils (Bld) [#/Vol] 4.3 10*3/uL 2.0-7.7 [facility] Anion gap in Serum or Plasma Ordered By: Kaitlyn Condon on 01-29-2025 Anion gap [Moles/Vol] 10 mmol/L 5-15 [facility] Automated lymphocyte count a s percentage of total leukocytesOrdered By: Kaitlyn Condon on 01-29-2025 Lymphocytes/100 WBC Auto (Unsp spec) 29.3 % 19-41 [facility] BUN/creatinine ratioOrdered By: Kaitlyn Condon on 01-29-2025 Urea nitrogen/Creatinine [Mass ratio] 14.2 mg/mg 10-20 [facility] Basophil percentageOrdered B y: Kaitlyn Condon on 01-29-2025 Basophils/100 WBC (Bld) 0.9 % 0-1 [facility] Bilirubin, totalOrdered By: Kaitlyn Condon on 01-29-2025 Bilirubin [Mass/Vol] 0.80 mg/dL 0.00-1.30 [facility] CBC W/Diff, Automatedon 01-13 Absolute Lymph 2.23 X10 3/uL Normal 0.83-4.51 [facility] Comment on above: Performed By: #### L 501.9985, L501.5200, L500.4100, L500.4050, L501.01822, L506.0400, L100.0100, L503.0106, L501.9520, L506.1001 #### [facility] [address] [place], [place], [id number] Absolute Neut 4.3 X10 3/uL Normal 2.0-7.7 [facility] Comment on above: Performed By: #### L 501.9985, L501.5200, L500.4100, L500.4050, L501.28199, L506.0400, L100.0100, L503.0106, L501.9520, L506.1001 #### [facility] [address] [place], [address] Basophils/100 WBC (Bld) 0.9 % Normal 0-1 [facility] Comment on above: Performed By: #### L 501.9985, L501.5200, L500.4100, L500.4050, L501.15768, L506.0400, L100.0100, L503.0106, L501.9520, L506.1001 #### [facility] [address] [place], [place], [phone] ([phone] Eosinophils/100 WBC (Bld) 4.5 % Normal 0-5 [facility] Comment on above: Performed By: #### L 501.9985, L501.5200, L500.4100, L500.4050, L501.23326, L506.0400, L100.0100, L503.0106, L501.9520, L506.1001 #### [facility] [address] [place], [place], [phone] ([phone] Erythrocyte distribution width (RBC) [Ratio] 14.6 % Normal 11.6-14.6 [facility] Comment on above: Performed By: #### L 501.9985, L501.5200, L500.4100, L500.4050, L501.37384, L506.0400, L100.0100, L503.0106, L501.9520, L506.1001 #### [facility] [address] [place], [address] Hematocrit (Bld) [Volume fraction] 36.7 % Low 37-47 [facility] Comment on above: Performed By: #### L 501.9985, L501.5200, L500.4100, L500.4050, L501.50553, L506.0400, L100.0100, L503.0106, L501.9520, L506.1001 #### [facility] [address] [place], [address] Hemoglobin (Bld) [Mass/Vol] 12.0 g/dL Normal 12.0-15.0 [facility] Comment on above: Performed By: #### L 501.9985, L501.5200, L500.4100, L500.4050, L501.26951, L506.0400, L100.0100, L503.0106, L501.9520, L506.1001 #### [facility] [address] [place], [address] ( IG% 0.300 Normal 0.0-0.9 [facility] Comment on above: Result Comment: IG% - Immature Granulocytes (promyelocytes, myelocytes and metamyelocytes) > 1% indicates that a LEFT SHIFT is Present. Performed By: #### L 501.9985, L501.5200, L500.4100, L500.4050, L501.83817, L506.0400, L100.0100, L503.0106, L501.9520, L506.1001 #### [facility] [address] [place], [address] Lymphocytes/100 WBC (Bld) 29.3 % Normal 19-41 [facility] Comment on above: Performed By: #### L 501.9985, L501.5200, L500.4100, L500.4050, L501.53674, L506.0400, L100.0100, L503.0106, L501.9520, L506.1001 #### [facility] [address] [place], [address] MCH (RBC) [Entitic mass] 26.6 pg Low 27.0-32.0 [facility] Comment on above: Performed By: #### L 501.9985, L501.5200, L500.4100, L500.4050, L501.70644, L506.0400, L100.0100, L503.0106, L501.9520, L506.1001 #### [facility] [address] [place], [address] MCHC (RBC) [Mass/Vol] 32.7 g/dL Normal 32-36 [facility] Comment on above: Performed By: #### L 501.9985, L501.5200, L500.4100, L500.4050, L501.61665, L506.0400, L100.0100, L503.0106, L501.9520, L506.1001 #### [facility] [address] [place], [address] MCV (RBC) [Entitic vol] 81.4 fL Normal 81-99 [facility] Comment on above: Performed By: #### L 501.9985, L501.5200, L500.4100, L500.4050, L501.39303, L506.0400, L100.0100, L503.0106, L501.9520, L506.1001 #### [facility] [address] [place], [address] Monocytes/100 WBC (Bld) 8.3 % Normal 0-10 [facility] Comment on above: Performed By: #### L 501.9985, L501.5200, L500.4100, L500.4050, L501.53611, L506.0400, L100.0100, L503.0106, L501.9520, L506.1001 #### [facility] [address] [place], [address] Neutrophils/100 WBC (Bld) 56.7 % Normal 47-70 [facility] Comment on above: Performed By: #### L 501.9985, L501.5200, L500.4100, L500.4050, L501.94284, L506.0400, L100.0100, L503.0106, L501.9520, L506.1001 #### [facility] [address] [place], [address] Nucleated RBC (Bld) [#/Vol] 0 10*3/uL Normal 0-5 [facility] Comment on above: Performed By: #### L 501.9985, L501.5200, L500.4100, L500.4050, L501.59470, L506.0400, L100.0100, L503.0106, L501.9520, L506.1001 #### [facility] [address] [place], [address] (591) Platelet mean volume (Bld) [Entitic vol] 9.7 fL Normal 6.2-12.0 [facility] Comment on above: Performed By: #### L 501.9985, L501.5200, L500.4100, L500.4050, L501.04593, L506.0400, L100.0100, L503.0106, L501.9520, L506.1001 #### [facility] [address] [place], [place], [phone] (432) Platelets (Bld) [#/Vol] 407 10*3/uL Normal 150-450 [facility] Comment on above: Performed By: #### L 501.9985, L501.5200, L500.4100, L500.4050, L501.26685, L506.0400, L100.0100, L503.0106, L501.9520, L506.1001 #### [facility] [address] [place], [place], [phone] (256) RBC (Bld) [#/Vol] 4.51 10*6/uL Normal 4.2-5.4 [facility] Comment on above: Performed By: #### L 501.9985, L501.5200, L500.4100, L500.4050, L501.19545, L506.0400, L100.0100, L503.0106, L501.9520, L506.1001 #### [facility] [address] [place], [address] RDW SD 43.1 fl Normal 35.1-43.9 [facility] Comment on above: Performed By: #### L 501.9985, L501.5200, L500.4100, L500.4050, L501.43761, L506.0400, L100.0100, L503.0106, L501.9520, L506.1001 #### [facility] [address] [place], [address] WBC (Bld) [#/Vol] 7.6 10*3/uL Normal 4.4-11.0 [facility] Comment on above: Performed By: #### L 501.9985, L501.5200, L500.4100, L500.4050, L501.91384, L506.0400, L100.0100, L503.0106, L501.9520, L506.1001 #### [facility] [address] [place], [address] Calculated very low density lipoprotein (VLDL) cholesterol measurementOrdered By: Kaitlyn Condon on 01-29-2025 Calculated very low density lipoprotein (VLDL) cholesterol measurement 18 mg/dL 5-40 [facility] Carbon dioxide, total [Moles /volume] in Central venous bloodOrdered By: Kaitlyn Condon on 01-29-2025 CO2 [Moles/Vol] 27.9 mmol/L 21.0-32.0 [facility] Chloride assayOrdered By: Kendal Condon on 01-29-2025 Chloride [Moles/Vol] 98 mmol/L 98-108 [facility] Comprehensive Metabolic Prof ilon 01-29-2025 Albumin [Mass/Vol] 4.1 g/dL Normal 3.4-4.8 [facility] Comment on above: Performed By: #### L 501.9985, L501.5200, L500.4100, L500.4050, L501.69552, L506.0400, L100.0100, L503.0106, L501.9520, L506.1001 ####[facility] [address] [place], [address] Albumin/Globulin [Mass ratio] 1.3 {ratio} Normal 0.9-2.4 [facility] Comment on above: Performed By: #### L 501.9985, L501.5200, L500.4100, L500.4050, L501.57239, L506.0400, L100.0100, L503.0106, L501.9520, L506.1001 ####[facility] [address] [place], [place], [id number] ALK PHOS 87 U/L Normal 35-104 [facility] Comment on above: Performed By: #### L 501.9985, L501.5200, L500.4100, L500.4050, L501.82871, L506.0400, L100.0100, L503.0106, L501.9520, L506.1001 ####[facility] [address] [place], [address] ALT [Catalytic activity/Vol] 18 U/L Normal <=34 [facility] Comment on above: Performed By: #### L 501.9985, L501.5200, L500.4100, L500.4050, L501.79364, L506.0400, L100.0100, L503.0106, L501.9520, L506.1001 ####[facility] [address] [place], [place], [phone] AST [Catalytic activity/Vol] 17 U/L Normal <=31 [facility] Comment on above: Performed By: #### L 501.9985, L501.5200, L500.4100, L500.4050, L501.60984, L506.0400, L100.0100, L503.0106, L501.9520, L506.1001 ####[facility] [address] [place], [place], [phone] Bilirubin [Mass/Vol] 0.80 mg/dL Normal 0.00-1.30 [facility] Comment on above: Performed By: #### L 501.9985, L501.5200, L500.4100, L500.4050, L501.91263, L506.0400, L100.0100, L503.0106, L501.9520, L506.1001 ####[facility] [address] [place], [place], [phone](634) BUN/CRE 14.2 RATIO Normal 10-20 [facility] Comment on above: Performed By: #### L 501.9985, L501.5200, L500.4100, L500.4050, L501.13837, L506.0400, L100.0100, L503.0106, L501.9520, L506.1001 ####[facility] [address] [place], [place], [phone] Calcium [Mass/Vol] 9.4 mg/dL Normal 7.6-11.0 [facility] Comment on above: Performed By: #### L 501.9985, L501.5200, L500.4100, L500.4050, L501.85261, L506.0400, L100.0100, L503.0106, L501.9520, L506.1001 ####[facility] [address] [place], [place], [phone] Chloride [Moles/Vol] 98 mmol/L Normal 98-108 [facility] Comment on above: Performed By: #### L 501.9985, L501.5200, L500.4100, L500.4050, L501.04210, L506.0400, L100.0100, L503.0106, L501.9520, L506.1001 ####[facility] [address] [place], [place], [id number] CO2 [Moles/Vol] 27.9 mmol/L Normal 21.0-32.0 [facility] Comment on above: Performed By: #### L 501.9985, L501.5200, L500.4100, L500.4050, L501.48802, L506.0400, L100.0100, L503.0106, L501.9520, L506.1001 ####[facility] [address] [place], [place], [id number] Creatinine [Mass/Vol] 0.74 mg/dL Normal 0.70-1.20 [facility] Comment on above: Performed By: #### L 501.9985, L501.5200, L500.4100, L500.4050, L501.69273, L506.0400, L100.0100, L503.0106, L501.9520, L506.1001 ####[facility] [address] [place], [place], [phone] GAP 10 Normal 5-15 [facility] Comment on above: Performed By: #### L 501.9985, L501.5200, L500.4100, L500.4050, L501.66437, L506.0400, L100.0100, L503.0106, L501.9520, L506.1001 ####[facility] [address] [place], [place], [phone](307) GFR/1.73 sq M.predicted among non-blacks MDRD (S/P/Bld) [Vol rate/Area] 82 mL/min/{1.73_m2} Normal >60 [facility] Comment on above: Result Comment: mL/m in/1.73m2 CKD-EPI Creatinine Equation (2020) Performed By: #### L 501.9985, L501.5200, L500.4100, L500.4050, L501.04232, L506.0400, L100.0100, L503.0106, L501.9520, L506.1001 ####[facility] [address] [place], [place], [phone] Globulin (S) [Mass/Vol] 3.1 g/dL Normal 2.2-4.2 [facility] Comment on above: Performed By: #### L 501.9985, L501.5200, L500.4100, L500.4050, L501.39360, L506.0400, L100.0100, L503.0106, L501.9520, L506.1001 ####[facility] [address] [place], [place], [phone] Glucose [Mass/Vol] 167 mg/dL High 70-99 [facility] Comment on above: Performed By: #### L 501.9985, L501.5200, L500.4100, L500.4050, L501.44126, L506.0400, L100.0100, L503.0106, L501.9520, L506.1001 ####[facility] [address] [place], [place], [phone] Potassium [Moles/Vol] 4.3 mmol/L Normal 3.3-5.1 [facility] Comment on above: Performed By: #### L 501.9985, L501.5200, L500.4100, L500.4050, L501.42773, L506.0400, L100.0100, L503.0106, L501.9520, L506.1001 ####[facility] [address] [place], [address] Sodium [Moles/Vol] 136 mmol/L Normal 133-145 [facility] Comment on above: Performed By: #### L 501.9985, L501.5200, L500.4100, L500.4050, L501.39503, L506.0400, L100.0100, L503.0106, L501.9520, L506.1001 ####[facility] [address] [place], [address] T PROT 7.2 g/dL Normal 5.9-8.4 [facility] Comment on above: Performed By: #### L 501.9985, L501.5200, L500.4100, L500.4050, L501.06518, L506.0400, L100.0100, L503.0106, L501.9520, L506.1001 ####[facility] [address] [place], [address] Urea nitrogen [Mass/Vol] 11 mg/dL Normal 4-19 [facility] Comment on above: Performed By: #### L 501.9985, L501.5200, L500.4100, L500.4050, L501.14831, L506.0400, L100.0100, L503.0106, L501.9520, L506.1001 ####[facility] [address] [place], [address] Eosinophil percentageOrdered By: Kaitlyn Condon on 01-29-2025 Eosinophils/100 WBC (Bld) 4.5 % 0-5 [facility] Erythrocyte distribution wid th ratioOrdered By: Kaitlyn Condon on 01-29-2025 Erythrocyte distribution width (RBC) [Ratio] 14.6 % 11.6-14.6 [facility] Erythrocyte distribution wid th standard deviationOrdered By: Kaitlyn Condon on 01-29-2025 Erythrocyte distribution width (RBC) [Ratio] 43.1 fl 35.1-43.9 [facility] Free T3on 01-29-2025 Free T3 [Mass/Vol] 2.6 pg/mL Normal 2.18-3.98 [facility] Comment on above: Performed By: #### L 501.9985, L501.5200, L500.4100, L500.4050, L501.11858, L506.0400, L100.0100, L503.0106, L501.9520, L506.1001 ####[facility] [address] [place], [address] Free W9Lmyhxeu By: Kaitlyn guidry on 01-29-2025 Free T3 [Mass/Vol] 2.6 pg/mL 2.18-3.98 [facility] Glomerular filtration rate ( GFR) estimation/1.73 sq m using serum, plasma, or whole bOrdered By: Kaitlyn Condon on 01-29-2025 GFR/1.73 sq M.predicted among non-blacks MDRD (S/P/Bld) [Vol rate/Area] 82 mL/min/{1.73_m2} >60 [facility] Comment on above: mL/min/1.73m2 CKD-EP I Creatinine Equation (2020) Hematocrit Auto (Bld) [Volum e fraction]Ordered By: Kaitlyn Condon on 01-29-2025 Hematocrit (Bld) [Volume fraction] 36.7 % Low 37-47 [facility] Hemoglobin A1con 01-29-2025 HbA1c (Bld) [Mass fraction] 8.4 % High <=5.6 [facility] Comment on above: Result Comment: Norm al < 5.7 % Prediabetic 5.7 - 6.4 % Diabetic >or= 6.5 % Please note range changes. Performed By: #### L 501.9985, L501.5200, L500.4100, L500.4050, L501.23502, L506.0400, L100.0100, L503.0106, L501.9520, L506.1001 #### [facility] [address] [place], [place], [phone] Hemoglobin A1c percentageOrd ered By: Kaitlyn Condon on 01-29-2025 HbA1c (Bld) [Mass fraction] 8.4 % High <5.7 [facility] Comment on above: Normal < 5.7 % Predi abetic 5.7 - 6.4 % Diabetic >or= 6.5 % Please note range changes. Hemoglobin measurementOrdere d By: Kaitlyn Condon on 01-29-2025 Hemoglobin (Bld) [Mass/Vol] 12.0 g/dL 12.0-15.0 [facility] Immature granulocytes/100 WB C Auto (Bld)Ordered By: Kaitlyn Condon on 01-29-2025 Immature granulocytes/100 WBC (Bld) 0.300 % 0.0-0.9 [facility] Comment on above: IG% - Immature Granu locytes (promyelocytes, myelocytes and metamyelocytes) > 1% indicates that a LEFT SHIFT is Present. LDL calc ser/plasOrdered By: Kaitlyn Condon on 01-29-2025 Cholesterol in LDL [Mass/Vol] 54 mg/dL [facility] Comment on above: Bozclbqmxg=790-768 m g/dL & Higher Gjcs=405 mg/dL or greater Laboratory - Chemistry and C hemistry - challengeOrdered By: Kaitlyn Condon on 01-29-2025 AST [Catalytic activity/Vol] 17 U/L <32 [facility] Lipid Profileon 01-29-2025 CHOL:HDL 2.24 Normal [facility] Comment on above: Performed By: #### L 501.9985, L501.5200, L500.4100, L500.4050, L501.06742, L506.0400, L100.0100, L503.0106, L501.9520, L506.1001 ####[facility] [address] [place], [address] Cholesterol [Mass/Vol] 129 mg/dL Normal <=200 [facility] Comment on above: Result Comment: Chol esterol level, Desirable <200 mg/dL Borderline high cholesterol 200-239 mg/dL High cholesterol >=240 mg/dL Recommendations of the NCEP Adult Treatment Panel for the following risk-cutoff thresholds for the [place] population. Performed By: #### L 501.9985, L501.5200, L500.4100, L500.4050, L501.82216, L506.0400, L100.0100, L503.0106, L501.9520, L506.1001 ####[facility] [address] [place], [place], [phone](898) Cholesterol in HDL [Mass/Vol] 58 mg/dL Normal [facility] Comment on above: Result Comment: Livia onal Cholesterol Education Program (NCEP) guidelines: <40 mg/dL: Low HDL-cholesterol (major risk factor for CHD) >= 60 mg/dL: High HDL-cholesterol (negative risk factor for CHD) HDL-cholesterol is affected by a number of factors, e.g. smoking, exercise, hormones, sex and age. Performed By: #### L 501.9985, L501.5200, L500.4100, L500.4050, L501.42243, L506.0400, L100.0100, L503.0106, L501.9520, L506.1001 ####[facility] [address] [place], [place], [phone] Cholesterol in LDL [Mass/Vol] 54 mg/dL Normal [facility] Comment on above: Result Comment: Bord xthtoh=727-556 mg/dL Higher Xwfz=068 mg/dL or greater Performed By: #### L 501.9985, L501.5200, L500.4100, L500.4050, L501.22964, L506.0400, L100.0100, L503.0106, L501.9520, L506.1001 ####[facility] [address] [place], [place], [phone](480) Cholesterol in VLDL [Mass/Vol] 18 mg/dL Normal 5-40 [facility] Comment on above: Performed By: #### L 501.9985, L501.5200, L500.4100, L500.4050, L501.26309, L506.0400, L100.0100, L503.0106, L501.9520, L506.1001 ####[facility] [address] [place], [place], [phone] Triglyceride [Mass/Vol] 88 mg/dL Normal [facility] Comment on above: Result Comment: The drugs N-Acetylcysteine and Metamizole may falsely depress this assay. Normal range: <150 mg/dL Borderline High: 150-199 mg/dL High: 200-499 mg/dL Very High: >500 mg/dL Performed By: #### L 501.9985, L501.5200, L500.4100, L500.4050, L501.20771, L506.0400, L100.0100, L503.0106, L501.9520, L506.1001 ####[facility] [address] [place], [place], [phone] MCV (mean corpuscular volume ) determinationOrdered By: Kaitlyn Condon on 01-29-2025 MCV (RBC) [Entitic vol] 81.4 fL 81-99 [facility] Magnesiumon 01-29-2025 Magnesium [Mass/Vol] 1.7 mg/dL Normal 1.5-2.2 [facility] Comment on above: Performed By: #### L 501.9985, L501.5200, L500.4100, L500.4050, L501.65212, L506.0400, L100.0100, L503.0106, L501.9520, L506.1001 ####[facility] [address] [place], [place], [phone] Magnesium measurement (mass/ volume)Ordered By: Kaitlyn Condon on 01-29-2025 Magnesium (Unsp spec) [Mass/Vol] 1.7 mg/dL 1.5-2.2 [facility] Mean corpuscular hemoglobin (MCH) determinationOrdered By: Kaitlyn Condon on 01-29-2025 MCH (RBC) [Entitic mass] 26.6 pg Low 27.0-32.0 [facility] Mean corpuscular hemoglobin concentration (MCHC) determinationOrdered By: Kaitlyn Condon on 01-29-2025 MCHC (RBC) [Mass/Vol] 32.7 g/dL 32-36 [facility] Mean platelet volume determi nationOrdered By: Kaitlyn Condon on 01-29-2025 Platelet mean volume (Bld) [Entitic vol] 9.7 fL 6.2-12.0 [facility] Monocyte percentageOrdered B y: Kaitlyn Condon on 01-29-2025 Monocytes/100 WBC (Bld) 8.3 % 0-10 [facility] Neutrophil percentageOrdered By: Kaitlyn Condon on 01-29-2025 Neutrophils/100 WBC (Bld) 56.7 % 47-70 [facility] No Panel InformationOrdered By: Kaitlyn Condon on 01-29-2025 17 U/L <32 [facility] Nucleated red blood cell per centageOrdered By: Kaitlyn Condon on 01-29-2025 Nucleated RBC/100 WBC (Bld) [Ratio] 0 % 0-5 [facility] Platelet countOrdered By: Kendal Condon on 01-29-2025 Platelets (Bld) [#/Vol] 407 10*3/uL 150-450 [facility] Potassium measurement (mass/ volume)Ordered By: Kaitlyn Condon on 01-29-2025 Potassium (Unsp spec) [Mass/Vol] 4.3 mmol/L 3.3-5.1 [facility] RBC Auto (Bld) [#/Vol]Ordere d By: Kaitlyn Condon on 01-29-2025 RBC (Bld) [#/Vol] 4.51 10*6/uL 4.2-5.4 [facility] Screening total cholesterol/ high density lipoprotein (HDL) cholesterol ratioOrdered By: Kaitlyn Condon on 01-29-2025 Cholesterol.total/Cho lesterol in HDL [Mass ratio] 2.24 {ratio} [facility] Serum creatinine measurement (mass/volume)Ordered By: Kaitlyn Condon on 01-29-2025 Creatinine [Mass/Vol] 0.74 mg/dL 0.70-1.20 [facility] Serum globulin measurementOr dered By: Kaitlyn Condon on 01-29-2025 Globulin (S) [Mass/Vol] 3.1 g/dL 2.2-4.2 [facility] Serum glucose measurement (m ass/volume)Ordered By: Kaitlyn Condon on 01-29-2025 Glucose [Mass/Vol] 167 mg/dL High 70-99 [facility] Serum or plasma alanine bay otransferase (ALT) measurementOrdered By: Kaitlyn Condon on 01-29-2025 ALT [Catalytic activity/Vol] 18 U/L <35 [facility] Serum or plasma albumin john urement (mass/volume)Ordered By: Kaitlyn Condon on 01-29-2025 Albumin [Mass/Vol] 4.1 g/dL 3.4-4.8 [facility] Serum or plasma albumin/glob ulin mass ratioOrdered By: Kaitlyn Condon on 01-29-2025 Albumin/Globulin [Mass ratio] 1.3 {ratio} 0.9-2.4 [facility] Serum or plasma alkaline orquidea sphatase measurementOrdered By: Kaitlyn Condon on 01-29-2025 ALP [Catalytic activity/Vol] 87 U/L 35-104 [facility] Serum or plasma calcium john urement (mass/volume)Ordered By: Kaitlyn Condon on 01-29-2025 Calcium [Mass/Vol] 9.4 mg/dL 7.6-11.0 [facility] Serum or plasma cholesterol in HDL measurement (mass/volume)Ordered By: Kaitlyn Condon on 01-29-2025 Cholesterol in HDL [Mass/Vol] 58 mg/dL >40 [facility] Comment on above: National Cholesterol Education Program (NCEP) guidelines:<40 mg/dL: Low HDL-cholesterol (major risk factor for CHD)>= 60 mg/dL: High HDL-cholesterol (negative risk factor for CHD)HDL-cholesterol is affected by a number of factors, e.g. smoking, exercise, hormones, sex and age. Serum or plasma cholesterol measurement (mass/volume)Ordered By: Kaitlyn Condon on 01-29-2025 Cholesterol [Mass/Vol] 129 mg/dL <201 [facility] Comment on above: Cholesterol level, D esirable <200 mg/dLBorderline high cholesterol 200-239 mg/dLHigh cholesterol >=240 mg/dLRecommendations of the NCEP Adult Treatment Panel for the following risk-cutoff thresholds for the [place] population. Serum or plasma urea nitroge n measurement (mass/volume)Ordered By: Kaitlyn Condon on 01-29-2025 Urea nitrogen [Mass/Vol] 11 mg/dL 4-19 [facility] Sodium levelOrdered By: Love Condon on 01-29-2025 Sodium [Moles/Vol] 136 mmol/L 133-145 [facility] T4 Free Directon 01-29-2025 T4 FREE DIRECT 1.40 ng/dL Normal 0.76-1.46 [facility] Comment on above: Performed By: #### L 501.9985, L501.5200, L500.4100, L500.4050, L501.90294, L506.0400, L100.0100, L503.0106, L501.9520, L506.1001 ####[facility] [id number] [place], [address] T4 freeOrdered By: Kaitlyn guidry on 01-29-2025 Free T4 [Mass/Vol] 1.40 ng/dL 0.76-1.46 [facility] TSH DL <= 0.005 mIU/L QnOrde red By: Kaitlyn Condon on 01-29-2025 TSH Qn 2.650 uIU/mL 0.300-4.20 0 [facility] Thyroid Stim Hormone (TSH)on 01-29-2025 TSH 2.650 uIU/mL Normal 0.300-4.20 0 [facility] Comment on above: Performed By: #### L 501.9985, L501.5200, L500.4100, L500.4050, L501.91984, L506.0400, L100.0100, L503.0106, L501.9520, L506.1001 ####[facility] [id number] [place], [place], [id number] Total proteinOrdered By: Ron Condon on 01-29-2025 Protein [Mass/Vol] 7.2 g/dL 5.9-8.4 [facility] Triglycerides measurementOrd ered By: Kaitlyn Condon on 01-29-2025 Triglyceride [Mass/Vol] 88 mg/dL <199 [facility] Comment on above: The drugs N-Acetylcy steine and Metamizole may falsely depress this assay. Normal range: <150 mg/dLBorderline High: 150-199 mg/dLHigh: 200-499 mg/dLVery High: >500 mg/dL Vitamin B12on 01-29-2025 Cobalamin (Vitamin B12) [Mass/Vol] 434 pg/mL Normal 180-914 [facility] Comment on above: Performed By: #### L 501.9985, L501.5200, L500.4100, L500.4050, L501.78300, L506.0400, L100.0100, L503.0106, L501.9520, L506.1001 ####[facility] [id number] [place], [place], [id number] Vitamin B12 ser/plasOrdered By: Kaitlyn Condon on 01-29-2025 Cobalamin (Vitamin B12) [Mass/Vol] 434 pg/mL 180-914 [facility] Vitamin D,25 Hydroxyon 01-29 Vitamin D 25-OH 44.4 ng/mL Normal 30-100 [facility] Comment on above: Result Comment: Melody min D Status Deficiency: <20 ng/mL (50nmol/L) Insufficiency: 20-30 ng/mL (50-75 nmol/L) Sufficiency: 30-100 ng/mL (75-250 nmol/L) Toxicity: >100 ng/mL (>250 nmol/L) Performed By: #### L 501.9985, L501.5200, L500.4100, L500.4050, L501.37811, L506.0400, L100.0100, L503.0106, L501.9520, L506.1001 ####[facility] [id number] [place], [address] White blood cell (WBC) count Ordered By: Kaitlyn Condon on 01-29-2025 WBC (Bld) [#/Vol] 7.6 10*3/uL 4.4-11.0 [facility] MR/BMS.Bon 12-19-2024 MR/BMS.[facility] [address] [place] [address] OFFICE VISIT Date of Service: 12/19/24 MR#: [id number] Acct: [id number] Name: DL PARSONS Rep #: [id number] : 1945 Provider: Dr. 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 Accompanied by: Self Is patient in pain?: No Allergies Penicillins Allergy (Verified 12/19/24 08:28) Rash Sulfa (Sulfonamide Antibiotics) Allergy (Verified 12/19/24 08:28) Rash calcium Adverse Reaction (Verified 12/19/24 08:28) Constipation sertraline Adverse Reaction (Verified 12/19/24 08:28) Constipation Medications ???Medication ???Instructions ???Recorded ???Confirmed ???Type lancets (Accu-Chek Multiclix #100 ea 07/02/20 12/19/24 History Lancet) geriatric multivitamin-min 1 tab PO .QOD 06/16/22 05/07/25 Hi story handicap placard #1 ea 07/06/23 12/19/24 Rx blood-glucose meter #1 ea 07/11/23 12/19/24 Rx lancets (Accu-Chek Softclix #100 ea 07/11/23 12/19/24 Rx Lancets) alcohol swabs 1 pad topical BID #100 ea 07/18/23 12/19/24 Rx blood sugar diagnostic (Accu-Chek #100 ea 10/31/23 12/19/24 Rx Guide test strips) potassium chloride 8 mEq 8 meq PO BID #180 caps 02/25/24 Rx capsule,extended release accu-check avivia control solutions #1 BOTTLE 07/23/24 12/19/24 Rx amlodipine 10 mg tablet 10 mg PO DAILY BLOOD PRESSURE #90 07/23/24 12/19/24 Rx tabs atorvastatin 10 mg tablet 10 mg PO QHS CHOLESTEROL #90 tabs 07/23/24 12/19/24 Rx ergocalciferol (vitamin D2) 1,250 1,250 mcg PO QWEEK #14 caps 07/2312/19/24 Rx mcg (50,000 unit) capsule irbesartan 300 1 tab PO DAILY BP #90 tabs 4 12/19/24 Rx mg-hydrochlorothiazide 12.5 mg tablet (Avalide) levothyroxine 75 mcg tablet 75 mcg PO DAILY THYROID #90 tabs 1 09/23/23 12/19/24 Rx metformin 500 mg tablet 500 mg PO BID DIABETES #180 tabs 1 09/23/23 12/19/24 Rx metoprolol tartrate 25 mg tablet 25 mg PO BID BLOOD PRESSURE #180 1 09/23/23 12/19/24 Rx tabs omeprazole 20 mg tablet,delayed 20 mg PO QDAY #60 tabs 10/23/24 Rx release albuterol sulfate 90 mcg/actuation 2 inh inhalation Q6H PRN 5 12/19/24 Rx aerosol inhaler bronchospasm #8.5 grams fluticasone furoate 100 1 inh inhalation Q24H #90 ea 10/2912/19/24 Rx mcg/actuation blister powder for inhalation Have you fallen in the past year?: Yes (11/2024, tripped on steps ) PFSH Medical History Cancer On home oxygen therapy Hypertension Abdominal discomfort Occult blood positive stool Back pain Black stool Acute URI Urinary tract infection Need for influenza vaccination Syncope Wears glasses Post-menopausal Thyroid disease Diabetes Walker as ambulation aid Ambulates with cane Injury of head and neck Gastric reflux Non-smoker History of edema History of echocardiogram History of stress test Bronchitis Shortness of breath on exertion Obesity History of COVID-19 Incontinence Difficulty balancing when standing Knee pain Diarrhea Hemorrhoids COVID-19 Pancreatitis Asthma Arthritis Seasonal allergies Osteopenia Essential hypertension Ascending cholangitis Gallstone pancreatitis Surgical History Hx laparoscopic cholecystectomy History of ERCP History of colonoscopy Cataracts, bilateral H/O: hysterectomy Cholecystectomy planned Family History Mother Diabetes Heart disease Arthritis Hypertension Hyperlipemia Father Colon cancer Heart disease Hypertension Hyperlipemia Cancer prostate Myocardial infarction Social History Smoking Status: Never smoker alcohol intake: never substance use type: does not use what type of physical activity do you participate in: other details: yard work additional social history: pt denies vaping, denies marijuana use, denies edibles, denies aspirin, denies ibuprofen use. HPI HPI Chief Complaint: 6 M FU Details: DL PARSONS, is a 79 F who presents to the office today for 6-month follow-up. Patient is a 79-year-old female who has a history of osteopenia, on vitamin D, hyperlipidemia on statin, (more content not included)... Normal [facility] Surgery Visit Reporton 11-28 Surgery Visit Report [facility] [address] [place] [address]. [address] [place] [address] OFFICE VISIT Date of Service: 11/28/24 MR#: [id number] Acct: [id number] Name: DL PARSONS Rep #: [id number] : 1945 Provider: Dr. Trevon reaves MD Age/Sex: 79/F Location: [facility] Status: Signed Intake Vital Signs 10/09/24 06:47 Height 5 ft Intake Visit Reasons: 3 WK MED CHECK Chief Complaint: med check Is patient in pain?: No Allergies Penicillins Allergy (Verified 11/28/24 09:02) Rash Sulfa (Sulfonamide Antibiotics) Allergy (Verified 11/28/24 09:02) Rash calcium Adverse Reaction (Verified 11/28/24 09:02) Constipation sertraline Adverse Reaction (Verified 11/28/24 09:02) Constipation Medications ???Medication ???Instructions ???Recorded ???Confirmed ???Type lancets (Accu-Chek Multiclix #100 ea 07/02/20 11/28/24 History Lancet) geriatric multivitamin-min 1 tab PO .QOD 01/28/22 11/28/24 Hi story handicap placard #1 ea 07/06/23 11/28/24 Rx blood-glucose meter #1 ea 07/11/23 11/28/24 Rx lancets (Accu-Chek Softclix #100 ea 07/11/23 11/28/24 Rx Lancets) alcohol swabs 1 pad topical BID #100 ea 07/18/23 11/28/24 Rx blood sugar diagnostic (Accu-Chek #100 ea 10/31/23 11/28/24 Rx Guide test strips) potassium chloride 8 mEq 8 meq PO BID #180 caps 02/25/24 Rx capsule,extended release accu-check avivia control solutions #1 BOTTLE 07/23/24 11/28/24 Rx amlodipine 10 mg tablet 10 mg PO DAILY BLOOD PRESSURE #90 07/23/24 11/28/24 Rx tabs atorvastatin 10 mg tablet 10 mg PO QHS CHOLESTEROL #90 tabs 07/23/24 11/28/24 Rx ergocalciferol (vitamin D2) 1,250 1,250 mcg PO QWEEK #14 caps 07/2311/28/24 Rx mcg (50,000 unit) capsule irbesartan 300 1 tab PO DAILY BP #90 tabs 07/23/2 4 11/28/24 Rx mg-hydrochlorothiazide 12.5 mg tablet (Avalide) lansoprazole 30 mg capsule,delayed 30 mg PO DAILY #90 caps 07/23/24 11/28/24 Rx release levothyroxine 75 mcg tablet 75 mcg PO DAILY THYROID #90 tabs 1 09/23/23 11/28/24 Rx metformin 500 mg tablet 500 mg PO BID DIABETES #180 tabs 1 09/23/23 11/28/24 Rx metoprolol tartrate 25 mg tablet 25 mg PO BID BLOOD PRESSURE #180 1 09/23/23 11/28/24 Rx tabs omeprazole 20 mg tablet,delayed 20 mg PO QDAY #60 tabs 10/23/24 Rx release albuterol sulfate 90 mcg/actuation 2 inh inhalation Q6H PRN 5 11/28/24 Rx aerosol inhaler bronchospasm #8.5 grams fluticasone furoate 100 1 inh inhalation Q24H #90 ea 10/2911/28/24 Rx mcg/actuation blister powder for inhalation Have you fallen in the past year?: No Subjective Details: Patient is a 79-year-old female here following up after being started on a PPI. Patient was found to have Tapia's on her last EGD and was advanced to a proton pump inhibitor instead of Pepcid. Objective Details: Abdomen is soft and nontender Coding Level of Care Code Off vis,est,level 3 Diagnoses Barretts esophagus K22.70 [facility] Medical History Cancer On home oxygen therapy Hypertension Abdominal discomfort Occult blood positive stool Back pain Black stool Acute URI Urinary tract infection Need for influenza vaccination Syncope Wears glasses Post-menopausal Thyroid disease Diabetes Walker as ambulation aid Ambulates with cane Injury of head and neck Gastric reflux Non-smoker History of edema History of echocardiogram History of stress test Bronchitis Shortness of breath on exertion Obesity History of COVID-19 Incontinence Difficulty balancing when standing Knee pain Diarrhea Hemorrhoids COVID-19 Pancreatitis Asthma Arthritis Seasonal allergies Osteopenia Essential hypertension Ascending cholangitis Gallstone pancreatitis Surgical History Hx laparoscopic cholecystectomy History of ERCP History of colonoscopy Cataracts, bilateral H/O: hysterectomy Cholecystectomy planned Family History Mother Diabetes Heart disease Arthritis Hypertension Hyperlipemia Father Colon cancer Heart disease Hypertension Hyperlipemia Cancer prostate Myocardial infarction Social History Smoking Status: Never smoker alcohol intake: never substance use type: does not use what type of physical activity do you participate in: other details: yard work additional social history: pt denies vaping, denies marijuana use, denies edibles, denies aspirin, denies ibuprofen use. Assessment and Plan (No Qualifiers) Assessment and Plan (1) Barretts esophagus: Status: Acute Plan (more content not included)... Normal [facility] Bedside Glucoseon 10-09-2024 FINGERSTICK GLU 151 mg/dL High 74-106 [facility] Comment on above: Result Comment: SERJIO KO OF PATIENT CARE PER NURSING PROTOCOL Performed By: #### L 501.080 ####[facility] [id number] [facility] [place], [address] EGD Reporton 10-09-2024 EGD Report [facility] Medical Records Department [address] [place] [address] EGD Report MR#: [id number] Acct: [id number] Name: DL PARSONS Rep #: [id number] : 1945 79 From: Trevon Vee MD PCP: Dr. Kaitlyn Condon MD Status:[facility] Patient Name: Dl Parsons Procedure Date: 10/09/2024 7:28 AM Date of : 1945 Age: 79 Procedure: Upper GI endoscopy Indications: Epigastric abdominal pain, Melena Providers: Trevon Vee MD Referring MD: Kaitlyn Condon Medicines: Propofol per Anesthesia Patient Profile: This is a 79 year old female. Refer to note in patient chart for documentation of history and physical. Complications: No immediate complications. Estimated blood loss: Minimal. Procedure: Pre-Anesthesia Assessment: - Prior to the procedure, a History and Physical was performed, and patient medications and allergies were reviewed. The patient's tolerance of previous anesthesia was also reviewed. The risks and benefits of the procedure and the sedation options and risks were discussed with the patient. All questions were answered, and informed consent was obtained. Prior Anticoagulants: The patient has taken no anticoagulant or antiplatelet agents. After reviewing the risks and benefits, the patient was deemed in satisfactory condition to undergo the procedure. After obtaining informed consent, the endoscope was passed under direct vision. Throughout the procedure, the patient's blood pressure, pulse, and oxygen saturations were monitored continuously. The Endoscope was introduced through the mouth, and advanced to the third part of duodenum. The upper GI endoscopy was accomplished without difficulty. The patient tolerated the procedure well. Scope In: 7:32:06 AM Scope Out: 7:35:47 AM Total Procedure Duration Time 0 hours 3 minutes 41 seconds Findings: One tongue of salmon-colored mucosa was present. Biopsies were taken with a cold forceps for histology. Multiple pedunculated polyps with no bleeding and no stigmata of recent bleeding were found in the stomach. Impression: - [place]-colored mucosa suspicious for short-segment Tapia's esophagus. Biopsied. - Multiple gastric polyps. Recommendation: - Discharge patient to home. - Resume previous diet. - Continue present medications. - Await pathology results. Procedure Code(s): --- Professional --- 91719, Esophagogastroduodenoscopy, flexible, transoral; with biopsy, single or multiple Diagnosis Code(s): --- Professional --- K22.89, Other specified disease of esophagus K31.7, Polyp of stomach and duodenum R10.13, Epigastric pain K92.1, Melena (includes Hematochezia) CPT copyright 2021 [employer]. All rights reserved. The codes documented in this report are preliminary and upon certified procedural coder review may be revised to meet current compliance requirements. Trevon Vee MD 10/09/2024 7:40:56 AM This report has been signed electronically. Number of Addenda: 0 Note Initiated On: 10/09/2024 7:28 AM 10/09/24 0741 Date Trevon Vee MD Cosigner Signature: Date (if indicated) CC: Dr. Trevon Vee MD; Dr. Kaitlyn Condon MD Date Dictated: 10/09/24727 Date Transcribed: Rail Operator: Signed [facility] de[facility]dered By: Trevon Vee on 10-09-2024 Glucose [Mass/Vol] 151 mg/dL High 74-106 [facility] Comment on above: MANAGEMENT OF PATIEN T CARE PER NURSING PROTOCOL MR/POSTOP.ANEon 10-09-2024 MR/POSTOP.ANE [facility] Medical Records Department [address] [place] [address] Anesthesia Postop Eval I 10/09/24744 MR#: [id number] Acct: [id number] Name: DL PARSONS Rep #: [id number] : 1945 79 From: Carter Higginbotham PCP: Dr. Kaitlyn Condon MD Status:[facility] [place] Race: C Location: [place] [address] Anesthesia: Postop Eval I Current Vital Signs Temperature: 98 F Pulse Rate: 16 Blood Pressure: 111/63 Respiratory Rate: 16 Pulse Ox: 95 Oxygen Delivery Method: Room Air Assessment Airway patent: Yes Spontaneous unlabored respirations: Yes Mental status: Awake nausea: No Vomiting: No Anesthesia Complication: No Fluid Hydration Crystalloid volume administer (ml): 30 Total IV fluid infused: 30 Progress Note Anesthesia document: Postop Eval 1 completed: Yes 10/09/24745 Date Carter Jeffery Signature: Date CC: Signed [facility] MR/YFOIAYWH0wi 10-09-2024 MR/POSTOPAN2 [facility] Medical Records Department [address] [place] [address] Anesthesia Postop Eval II 10/09/241827 MR#: [id number] Acct: [id number] Name: DL PARSONS Rep #: [id number] : 1945 79 From: Ryan Priest MD PCP: Dr. Kaitlyn Condon MD Status:[facility] Y Race: C Location: EN Anesthesia Postop Eval I Sum Postop Eval Completion status Anesthesia document: Postop Eval 1 completed: Yes Anesthesia Postop Eval I Summary Anesthesia Postop Eval I Summary: Anesthesia Postop Eval I: Assessment Summary Airway patent Yes 10/09/24 07:46 [email or web address] Spontaneous unlabored Yes 10/09/24 07:46 [email or web address] respirations Mental status Awake 10/09/24 07:46 [email or web address] nausea No 10/09/24 07:46 [email or web address] Vomiting No 10/09/24 07:46 [email or web address] Anesthesia Postop Eval I: Fluid Summary Crystalloid volume administer 30 10/09/24 07:46 [email or web address] (ml) Colloids volume administered ( ml) Blood Product volume administered (ml) Total IV fluid infused 30 10/09/24 07:46 [email or web address] Anesthesia Postop Eval I: Summary Notes Anesthesia Complication No 10/09/24 07:46 [email or web address] Anesthesia Complication Comment: Post-operative progress note Anesthesia: Postop Eval II Evaluation Mental status: Awake and Calm Pain Level: 0 nausea: No Vomiting: No Complications Anesthesia Complication: No 10/09/241828 Date Ryan Priest MD Cosigner Signature: Date CC: Signed Normal [facility] P53 (initial)on 10-09-2024 P53 (initial) --------- ----- Patient Age/Sex Location Account Attending Physician ----- DL PARSONS 79/F EN [id number] Dr. Trevon Vee MD ----- Specimen: [id number] Received: 10/10/24 Status: FREDA Grant Num: [id number] Spec Type: IMMUNO Subm Dr: Dr. Trevon Vee MD PHYSICIAN INSTITUTION [place] [address] SPECIMEN INFORMATION: Tissue Source: Gastroesophageal junction biopsy Clinical Info: Abdominal discomfort, black stool Specimen Number: [id number] CPT code: 38347,96578 METHODOLOGY: Deparaffinized sections of prefer/formalin-fixed tissue or PAP/DQ stained slides are incubated with monoclonal/polyclonal antibodies/oligonucleotide probes. Localization is made via biotin free immunoperoxidase method. Appropriate controls are performed and reacted as expected. Results on target cell population are indicated in the following table: RESULTS: ANTIBODY / CLONE RESULT P53 (DO-7) positive, focal and weak (wild type pattern) Ki-67 (30-9) positive, low These tests were developed and their performance characteristics determined by [facility]. They may not have been cleared or approved by the U.S. Food and Drug Administration. The FDA has determined that such clearance or approval is not necessary. The above immunohistochemical/dualISH markers are ordered and reviewed by the Pathologist. INTERPRETATION: Gastroesophageal junction, biopsy: Negative for dysplasia. 10/10/2024 Signed (signature on file) Dr. Neal Matthew MD 10/11/24 1339 ----- Normal [facility] Comment on above: Performed By: #### P P53 ####[facility] [address] [place], [address] Special Stain Group Ion 09-16 Special Stain Group I ----- Patient Age/Sex Location Account Attending Physician ----- DL PARSONS 79/F EN [id number] Dr. Trevon Vee MD ----- Specimen: [id number] Received: 10/09/24 Status: FREDA Burns Num: [id number] Spec Type: EGD BIOPSY Subm Dr: Dr. 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 Chronic inflammation. Negative for dysplasia. See comment. SJ. 10/10/2024 COMMENT Alcian blue/PAS stain with matched control is used in the evaluation of the specimen. Immunohistochemistry ([id number]) for P53 and Ki-67 will be performed and results will be reported separately. MICROSCOPIC DESCRIPTION Slides are reviewed. GROSS DESCRIPTION Received in fixative is one container labeled with the patient's name and designated GE junction biopsy." The specimen consists of two irregular fragments of light orr soft tissue that in aggregate measure 0.7 x 0.2 x 0.2 cm. The specimen is totally submitted in one cassette. MITCH. 10/09/2024 TC:3 CPT:11011,49229 ----- Patient Age/Sex Location Account Attending Physician ----- DL PARSONS 79/F EN [id number] Dr. Trevon Vee MD ----- Signed (signature on file) Dr. Neal Matthew MD 10/10/24 1413 ----- Normal [facility] Comment on above: Performed By: #### L 100.0100, L503.7505, L500.2500, L500.3400, L501.2450 #### [facility] [address] [facility] [place], [address] MR/Ralph 10-04-2024 MR/GROVER.KHOI [facility] Medical Records Department [address] [place] [address] PAT - Anesthesia 10/04/24 1422 MR#: [id number] Acct: [id number] Name: DL PARSONS Rep #: [id number] : 1945 79 From: Madi Weems MD PCP: Dr. Kaitlyn Condon MD Status:PRE [facility] Y Race: C Location: EN Pre-Assessment Diagnosis/Proposed Procedure Planned Operative Procedure(s): EGD Anesthesia History Anesthesia History - manpower development advisor: Anesthesia History - manpower development advisor Hx Hospitalization No 10/04/24 13:54 Any Problems With Anesthesia No 10/04/24 13:54 Cholinesterase deficiency No 10/04/24 13:54 You/Your Family Experience No 10/04/24 13:54 fever (hyperthermia) with Relationship Recent Exposure to Contagious No 05/24/24 11:15 Disease Does patient have nerve No 10/04/24 13:54 stimulator Patient instructed to have device shut off --Does patient have Pacemaker or ICD? When Was Last Pacemaker Check QUESTION #4 FULL TEXT: You/Your Family Experience fever (hyperthermia) with Anesthesia Last Oral Intake Last Oral intake: Last Oral Intake NPO since Meds taken in AM with sips of water? Meds patient instructed to take am of surgery PONV PONV - manpower development advisor: PONV - manpower development advisor Female Yes 10/04/24 13:54 HX of Motion Sickness No 10/04/24 13:54 HX of N/V After Surgery No 10/04/24 13:54 Non-Smoker Yes 10/04/24 13:54 Duration of Surgery greater No 10/04/24 13:54 than 60 minutes Number of Risk Factors 2 10/04/24 13:54 PONV Score Moderate Risk 10/04/24 13:54 Height Weight Height Weight: Anesthesia: Height Weight Height 5 ft 09/05/24 13:47 Respiratory Assessment Respiratory Assessment - manpower development advisor: Respiratory Tract Infection Hx - manpower development advisor Hx Respiratory Tract Infection No 10/04/24 13:54 STOP Sleep Apnea STOP Sleep Apnea - manpower development advisor: STOP Sleep Apnea - manpower development advisor Hx Hypertension Yes: CONTROLLED ON MED 10/04/24 13:54 Hx Sleep Apnea No 10/04/24 13:54 CPAP No 10/04/24 13:54 BIPAP No 10/04/24 13:54 Do you snore loudly (louder No 10/04/24 13:54 than talking or can be heard Do you often feel tired/ No 10/04/24 13:54 fatigued/ sleepy during daytime? Has anyone observed you stop No 10/04/24 13:54 breathing during sleep? STOP Results Negative 10/04/24 13:54 QUESTION #5 FULL TEXT : Do you snore loudly (louder than talking or can be heard through closed doors)? Tobacco Use History Tobacco Use History - manpower development advisor: Tobacco Use History - manpower development advisor Tobacco Use Smoking Status Never smoker 10/04/24 13:54 Hx Tobacco Use No 10/04/24 13:54 Years Smoking Packs Smoked per Day Smoking Cessation Date was within the last 15 years Hx Smoking Cessation Date Hx Smoking Cessation Counseling Hematologic Medial History Hematologic Hx - manpower development advisor: Hematologic Medical Hx - superintendent overhead distribution Hx of Blood Transfusion No 10/04/24 13:54 Hx of Transfusion in last 3 No 10/04/24 13:54 Months Date of Last Transfusion (if within last 3 months) Ever experience any problems No 10/04/24 13:54 with transfusion(s)? Specify any problems Hx of Preganancy in last 3 No 10/04/24 13:54 Months Nurse Filling Out Transfusion VCHRISTIN 10/04/24 13:54 Questions: Date: 10/04/24 10/04/24 13:54 Time: 13:55 10/04/24 13:54 Patient unable to answer at this time (ie. confused, unrespo /Reproduction History /Reproductive History - manpower development advisor: /Reproductive Hx- manpower development advisor Hx Now Gestational Age (in weeks): EDC: Hx Hx Para Hx Section SAB [facility] Medical History (Updated 10/04/24 @ 13:54 by Kourtney Hernandez) Cancer On home oxygen therapy Hypertension Abdominal discomfort Occult blood positive stool Back pain Black stool Acute URI Urinary tract infection Need for influenza vaccination Syncope Wears glasses Post-menopausal Thyroid disease Diabetes Walker as ambulation aid Ambulates with cane Injury of head and neck Gastric reflux Non-smoker History of edema History of echocardiogram History of stress test Bronchitis Shortness of breath on exertion Obesity History of COVID-19 Incontinence Difficulty balancing when standing Knee pain Diarrhea Hemorrhoids COVID-19 Pancreatitis Asthma Arthritis Seasonal allergies Osteopenia Essential hypertension Ascending cholangitis Gallstone pancreatitis Home Medications ???Medication ???Instructions ???Recorded ???Last Taken ???Type lancets (Accu-Chek Multiclix #100 ea 07/02/20 Unknown History (more content not included)... Normal [facility] Surgery Visit Reporton 09-05 Surgery Visit Report [facility] [address] [place] [address] OFFICE VISIT Date of Service: 09/05/24 MR#: [id number] Acct: [id number] Name: DL PARSONS Rep #: [id number] : 1945 Provider: Dr. Trevon reaves MD Age/Sex: 79/F Location: [facility] Status: Signed Intake Vital Signs 08/22/24 08:34 09/05/24 13:47 Height 4 ft 11 in 5 ft Weight: 188 lb 189 lb 8 oz BMI 38.0 37.0 BP 135/72 H 146/73 H Blood Pressure Location Rt brachial Rt brachial Position Sitting Sitting Respiration 18 17 Pulse 77 80 Pulse Source Monitor Monitor Temp 98.1 F Temp Source Temporal Pulse Oximetry (%) 95 92 Oxygen Delivery Method room air room air Intake Visit Reasons: GERD POSITIVE OCCULT Chief Complaint: gerd positive occult Is patient in pain?: No Allergies Penicillins Allergy (Verified 09/05/24 13:48) Rash Sulfa (Sulfonamide Antibiotics) Allergy (Verified 09/05/24 13:48) Rash calcium Adverse Reaction (Verified 09/05/24 13:48) Constipation sertraline Adverse Reaction (Verified 09/05/24 13:48) Constipation Medications ???Medication ???Instructions ???Recorded ???Confirmed ???Type lancets (Accu-Chek Multiclix #100 ea 07/02/20 09/05/24 History Lancet) fluticasone propionate 110 2 puff inhalation BID #12 grams 12/07/21 09/05/24 Rx mcg/actuation HFA aerosol inhaler (Flovent HFA) geriatric multivitamin-min 1 tab PO MOTH 01/28/22 09/05/24 History handicap placard #1 ea 07/06/23 09/05/24 Rx blood-glucose meter #1 ea 07/11/23 09/05/24 Rx lancets (Accu-Chek Softclix #100 ea 07/11/23 09/05/24 Rx Lancets) alcohol swabs 1 pad topical BID #100 ea 07/18/23 09/05/24 Rx blood sugar diagnostic (Accu-Chek #100 ea 10/31/23 09/05/24 Rx Guide test strips) potassium chloride 8 mEq 8 meq PO BID #180 caps 02/25/24 09/05/24 Rx capsule,extended release albuterol sulfate 90 mcg/actuation 2 inh inhalation Q6H PRN 05/30/24 09/05/24 Rx aerosol inhaler bronchospasm #8.5 grams accu-check avivia control solutions #1 BOTTLE 07/23/24 09/05/24 Rx amlodipine 10 mg tablet 10 mg PO DAILY BLOOD PRESSURE #90 07/23/24 09/05/24 Rx tabs atorvastatin 10 mg tablet 10 mg PO QHS CHOLESTEROL #90 tabs 07/23/24 09/05/24 Rx ergocalciferol (vitamin D2) 1,250 1,250 mcg PO QWEEK #14 caps 07/23/24 09/05/24 Rx mcg (50,000 unit) capsule irbesartan 300 1 tab PO DAILY BP #90 tabs 07/23/24 09/05/24 Rx mg-hydrochlorothiazide 12.5 mg tablet (Avalide) lansoprazole 30 mg capsule,delayed 30 mg PO DAILY #90 caps 07/23/24 09/05/24 Rx release levothyroxine 75 mcg tablet 75 mcg PO DAILY THYROID #90 tabs 07/23/24 09/05/24 Rx metformin 500 mg tablet 500 mg PO BID DIABETES #180 tabs 07/23/24 09/05/24 Rx metoprolol tartrate 25 mg tablet 25 mg PO BID BLOOD PRESSURE #180 07/23/24 09/05/24 Rx tabs ondansetron 4 mg disintegrating 4 mg PO Q8H PRN nausea and 08/23/24 09/05/24 Rx tablet vomiting #10 tabs Have you fallen in the past year?: No [facility] Medical History (Updated 09/05/24 @ 13:47 by Adele Baca) Abdominal discomfort Occult blood positive stool Back pain Black stool Acute URI Urinary tract infection Need for influenza vaccination Syncope Wears glasses Post-menopausal Thyroid disease Diabetes Walker as ambulation aid Ambulates with cane Injury of head and neck Gastric reflux Non-smoker History of edema History of echocardiogram History of stress test Bronchitis Shortness of breath on exertion Obesity History of COVID-19 Incontinence Difficulty balancing when standing Knee pain Diarrhea Hemorrhoids COVID-19 Pancreatitis Asthma Arthritis Seasonal allergies Osteopenia Essential hypertension Ascending cholangitis Gallstone pancreatitis Surgical History Hx laparoscopic cholecystectomy History of ERCP History of colonoscopy Cataracts, bilateral H/O: hysterectomy Cholecystectomy planned Family History Mother Diabetes Heart disease Arthritis Hypertension Hyperlipemia Father Colon cancer Heart disease Hypertension Hyperlipemia Cancer prostate Myocardial infarction Social History Smoking Status: Never smoker alcohol intake: never substance use type: does not use what type of physical activity do you participate in: other details: yard work additional social history: pt denies vaping, denies marijuana use, denies edibles, denies aspirin, denies ibuprofen use. HPI HPI HPI: Patient is a 79-year-old female who comes in with multiple complaints. She reports that for the last 2 to 3 weeks she has been having epigastric pain and nausea and she has a (more content not included)... Normal [facility] Stool Occult Blood iFOBon STOB Positive Normal [facility] Comment on above: Performed By: #### L 100.0100, L503.7505, L500.2500, L500.3400, L501.2450 #### [facility] Laboratory [address] [place], [address] Kidney and Bladderon 025 Kidney and Bladder [facility] Imaging Services [address] [place] [address] Kidney and Bladder MR#: [id number] Acct: [id number] Name: DL PARSONS Annika Rep #: [id number] : 1945 F 79 From: Luis Yoon MD PCP: Dr. Kaitlyn Condon MD Status: REG CLI Study: Kidney and Bladder Date of Exam: 08/28/24 Exam# [id number] Ordering Dr: Kaitlyn Condon MD [id number] EXAM: US RETROPERITONEAL LIMITED, RENAL CLINICAL INDICATION: Back pain, uti TECHNIQUE: Limited grayscale and color Doppler sonographic evaluation of the retroperitoneum was performed. COMPARISON: No relevant prior studies available. FINDINGS: RIGHT KIDNEY: Unremarkable. No hydronephrosis. No shadowing calculus. No focal lesion. No perinephric collection is demonstrated. LEFT KIDNEY: Unremarkable. No hydronephrosis. No shadowing calculus. No focal lesion. No perinephric collection is demonstrated. US/Kidney and Bladder IMPRESSION: Unremarkable limited retroperitoneal ultrasound. Electronically Signed: Luis Yoon MD at 13:24 EST , CC: Dr. Kaitlyn Condon MD Rail Operator: Signed Normal [facility] Urine Cultureon 08-24-2024 URC Escherichia coli [place] Count 80,000-100,000 Escherichia coli: REACTION Ampicillin Islt ELA 16 Ampicillin+Sulbac Islt ELA 4 S Cefepime Islt ELA <=0.12 S cefTRIAXone Islt ELA <=0.25 S Ciprofloxacin Islt ELA <=0.06 S B-Lactamase Extended Susc Islt NEG Gentamicin Islt ELA <=1 S levoFLOXacin Islt ELA <=0.12 S Meropenem Islt ELA <=0.25 S Nitrofurantoin Islt ELA <=16 S Pip+Tazo Islt ELA <=4 S TMP SMX Islt ELA <=20 S Normal [facility] Comment on above: Performed By: #### M 100.2200 ####[facility] [id number] [place], [address] /Jacky 08-22-2024 /CARRIE.IVÁN [facility] [address] [place] [address]. [address] [place] [address] OFFICE VISIT Date of Service: 08/22/24 MR#: [id number] Acct: [id number] Name: DL PARSONS Rep #: [id number] : 1945 Provider: Dr. Kaitlyn del rosario MD Age/Sex: 79/F Location[facility] Status: Signed Intake Vital Signs 07/03/24 05:55 08/22/24 08:34 Height 4 ft 11 in 4 ft 11 in Weight: 188 lb BMI 38.0 BP 135/72 H Blood Pressure Location Rt brachial Position Sitting Respiration 18 Pulse 77 Pulse Source Monitor Temp 98.1 F Temp Source Temporal Pulse Oximetry (%) 95 Oxygen Delivery Method room air Intake Visit Reasons: Upset stomach Experimental Machinist Required: No Accompanied by: Self Is patient in pain?: Yes (low back pain) Pain scale (1-10): 5 Allergies Penicillins Allergy (Verified 08/22/24 08:30) Rash Sulfa (Sulfonamide Antibiotics) Allergy (Verified 08/22/24 08:30) Rash calcium Adverse Reaction (Verified 08/22/24 08:30) Constipation sertraline Adverse Reaction (Verified 08/22/24 08:30) Constipation Medications ???Medication ???Instructions ???Recorded ???Confirmed ???Type lancets (Accu-Chek Multiclix #100 ea 07/02/20 08/22/24 History Lancet) fluticasone propionate 110 2 puff inhalation BID #12 grams 12/07/21 08/22/24 Rx mcg/actuation HFA aerosol inhaler (Flovent HFA) geriatric multivitamin-min 1 tab PO MOTH 01/28/22 08/22/24 History handicap placard #1 ea 07/06/23 08/22/24 Rx blood-glucose meter #1 ea 07/11/23 08/22/24 Rx lancets (Accu-Chek Softclix #100 ea 07/11/23 08/22/24 Rx Lancets) alcohol swabs 1 pad topical BID #100 ea 07/18/23 08/22/24 Rx blood sugar diagnostic (Accu-Chek #100 ea 10/31/23 08/22/24 Rx Guide test strips) potassium chloride 8 mEq 8 meq PO BID #180 caps 02/25/24 08/22/24 Rx capsule,extended release albuterol sulfate 90 mcg/actuation 2 inh inhalation Q6H PRN 05/30/24 08/22/24 Rx aerosol inhaler bronchospasm #8.5 grams accu-check avivia control solutions #1 BOTTLE 07/23/24 08/22/24 Rx amlodipine 10 mg tablet 10 mg PO DAILY BLOOD PRESSURE #90 07/23/24 08/22/24 Rx tabs atorvastatin 10 mg tablet 10 mg PO QHS CHOLESTEROL #90 tabs 07/23/24 08/22/24 Rx ergocalciferol (vitamin D2) 1,250 1,250 mcg PO QWEEK #14 caps 07/23/24 08/22/24 Rx mcg (50,000 unit) capsule irbesartan 300 1 tab PO DAILY BP #90 tabs 07/23/24 08/22/24 Rx mg-hydrochlorothiazide 12.5 mg tablet (Avalide) lansoprazole 30 mg capsule,delayed 30 mg PO DAILY #90 caps 07/23/24 08/22/24 Rx release levothyroxine 75 mcg tablet 75 mcg PO DAILY THYROID #90 tabs 07/23/24 08/22/24 Rx metformin 500 mg tablet 500 mg PO BID DIABETES #180 tabs 07/23/24 08/22/24 Rx metoprolol tartrate 25 mg tablet 25 mg PO BID BLOOD PRESSURE #180 07/23/24 08/22/24 Rx tabs codeine 10 mg-guaifenesin 100 mg/5 10 ml PO Q4-6H PRN cough #200 mL 08/22/24 08/22/24 Rx mL oral liquid levofloxacin 500 mg tablet 500 mg PO Q24H #7 tabs 08/22/24 08/22/24 Rx Have you fallen in the past year?: No PFSH Medical History (Updated 08/22/24 @ 09:[address] Kaitlyn Condon MD) Acute URI Urinary tract infection Need for influenza vaccination Syncope Wears glasses Post-menopausal Thyroid disease Diabetes Walker as ambulation aid Ambulates with cane Injury of head and neck Gastric reflux Non-smoker History of edema History of echocardiogram History of stress test Bronchitis Shortness of breath on exertion Obesity History of COVID-19 Incontinence Difficulty balancing when standing Knee pain Diarrhea Hemorrhoids COVID-19 Pancreatitis Asthma Arthritis Seasonal allergies Osteopenia Essential hypertension Ascending cholangitis Gallstone pancreatitis Surgical History Hx laparoscopic cholecystectomy History of ERCP History of colonoscopy Cataracts, bilateral H/O: hysterectomy Cholecystectomy planned Family History Mother Diabetes Heart disease Arthritis Hypertension Hyperlipemia Father Colon cancer Heart disease Hypertension Hyperlipemia Cancer prostate Myocardial infarction Social History Smoking Status: Never smoker alcohol intake: never substance use type: does not use what type of physical activity do you participate in: other details: yard work additional social history: pt denies vaping, denies marijuana use, denies edibles, denies aspirin, denies ibuprofen use. HPI HPI Details: DL PARSONS, is a 79 F who presents to the office today for symptoms consistent with UTI. 79-year-old female. She has type 2 diabetes, hypothyroidism, hyperlipidemia, hypertension. About 3 days ago, developed dysuria (more content not included)... Normal [facility] 12 Lead EKGon 07-03-2024 12 Lead EKG [facility] Cardiovascular Services [address] [place] [address] 12 Lead EKG 07/03/24 0611 MR#: [id number] Acct: [id number] Name: DL PARSONS Rep #: [id number] : 1945 79 From: Richard Prasad MD Attending Dr: Status: DEP ER Ordering Dr: Pierre Haley DO Date: 07/03/24 Location: ED Sex: F C Admitted: Test Reason : SOB Blood Pressure : */* mmHG Vent. Rate : 80 BPM Atrial Rate : 80 BPM P-R Int : 186 ms QRS Dur : 90 ms QT Int : 392 ms P-R-T Axes : 23 -25 19 degrees QTcB Int : 452 ms Normal sinus rhythm Minimal voltage criteria for LVH, may be normal variant ( R in aVL ) Borderline ECG Confirmed by RICHARD PRASAD MD ([id number]), food editor HEMALATHA BA ([id number]) on 07/03/2024 1:54:08 PM Referred By: Confirmed By: RICHARD PRASAD MD 07/03/24 2884 Date Richard Prasad MD CC: Dr. Kaitlyn Condon MD; Dr. Pierre Haley DO Signed Normal [facility] BNP,B-Type NATRIURETIC PEPTI [place] 07-03-2024 Natriuretic peptide B (Bld) [Mass/Vol] 42.0 pg/mL Normal 0-100 [facility] Comment on above: Performed By: #### L 100.0100, L503.7505, L500.2500, L500.3400, L501.2450 #### [facility] Laboratory [address] [place], [address] Basic Metabolic Profile (BMP )on 07-03-2024 BUN/CRE 12.8 RATIO Normal 10-20 [facility] Comment on above: Order Comment: 1Y Performed By: #### L 100.0100, L503.7505, L500.2500, L500.3400, L501.2450 #### [facility] [address] [place], [address] CA,Total 8.6 mg/dL Normal 8.5-10.1 [facility] Comment on above: Order Comment: 1Y Performed By: #### L 100.0100, L503.7505, L500.2500, L500.3400, L501.2450 #### [facility] Laboratory [address] [place], [address] Chloride [Moles/Vol] 94 mmol/L Low 98-107 [facility] Comment on above: Order Comment: 1Y Performed By: #### L 100.0100, L503.7505, L500.2500, L500.3400, L501.2450 #### [facility] [address] [place], [address] CO2 [Moles/Vol] 25.0 mmol/L Normal 21.0-32.0 [facility] Comment on above: Order Comment: 1Y Performed By: #### L 100.0100, L503.7505, L500.2500, L500.3400, L501.2450 #### [facility] Laboratory [address] [place], [address] Creatinine [Mass/Vol] 0.86 mg/dL Normal 0.55-1.02 [facility] Comment on above: Order Comment: 1Y Result Comment: The validity of the calculated GFR GFRAA in patients over 70 years has not been determined. Clinical correlation is essential. Performed By: #### L 100.0100, L503.7505, L500.2500, L500.3400, L501.2450 #### [facility] [address] [place], [address] ECRCL 52.85 ml/min Normal [facility] Comment on above: Order Comment: 1Y Performed By: #### L 100.0100, L503.7505, L500.2500, L500.3400, L501.2450 #### [facility] [address] [place], [address] EST GFR - AA 82 mL/min Normal >60 [facility] Comment on above: Order Comment: 1Y Result Comment: Afri can [place] GFR Calc Performed By: #### L 100.0100, L503.7505, L500.2500, L500.3400, L501.2450 #### [facility] [address] [place], [address] GAP 9 Normal 5-15 [facility] Comment on above: Order Comment: 1Y Performed By: #### L 100.0100, L503.7505, L500.2500, L500.3400, L501.2450 #### [facility] [address] [place], [address] GFR/1.73 sq M.predicted among non-blacks MDRD (S/P/Bld) [Vol rate/Area] 68 mL/min/{1.73_m2} Normal >60 [facility] Comment on above: Order Comment: 1Y Result Comment: Non- GFR Calc Performed By: #### L 100.0100, L503.7505, L500.2500, L500.3400, L501.2450 #### [facility] [address] [place], [address] Glucose [Mass/Vol] 176 mg/dL High 74-106 [facility] Comment on above: Order Comment: 1Y Result Comment: Fast ing Glucose result greater than or equal to 126 mg/dL suggests DIABETES MELLITUS per A.D.A. criteria. Performed By: #### L 100.0100, L503.7505, L500.2500, L500.3400, L501.2450 #### [facility] [address] [place], [address] Potassium [Moles/Vol] 3.3 mmol/L Low 3.5-5.1 [facility] Comment on above: Order Comment: 1Y Performed By: #### L 100.0100, L503.7505, L500.2500, L500.3400, L501.2450 #### [facility] [address] [place], [address] Sodium [Moles/Vol] 127 mmol/L Low 136-145 [facility] Comment on above: Order Comment: 1Y Performed By: #### L 100.0100, L503.7505, L500.2500, L500.3400, L501.2450 #### [facility] [address] [place], [address] Urea nitrogen [Mass/Vol] 11 mg/dL Normal 7-18 [facility] Comment on above: Order Comment: 1Y Performed By: #### L 100.0100, L503.7505, L500.2500, L500.3400, L501.2450 #### [facility] [address] [place], [address] CBC W/Diff, Automatedon 11- Absolute Lymph 1.57 X10 3/uL Normal 0.83-4.51 [facility] Comment on above: Performed By: #### L 100.0100, L503.7505, L500.2500, L500.3400, L501.2450 #### [facility] Laboratory [address] [place], [address] Absolute Neut 5.6 X10 3/uL Normal 2.0-7.7 [facility] Comment on above: Performed By: #### L 100.0100, L503.7505, L500.2500, L500.3400, L501.2450 #### [facility] Laboratory [address] [place], [address] Basophils/100 WBC (Bld) 0.8 % Normal 0-1 [facility] Comment on above: Performed By: #### L 100.0100, L503.7505, L500.2500, L500.3400, L501.2450 #### [facility] [address] [place], [address] Eosinophils/100 WBC (Bld) 0.1 % Normal 0-5 [facility] Comment on above: Performed By: #### L 100.0100, L503.7505, L500.2500, L500.3400, L501.2450 #### [facility] [address] [place], [address] Erythrocyte distribution width (RBC) [Ratio] 14.2 % Normal 11.6-14.6 [facility] Comment on above: Performed By: #### L 100.0100, L503.7505, L500.2500, L500.3400, L501.2450 #### [facility] [address] [place], [address] Hematocrit (Bld) [Volume fraction] 33.8 % Low 37-47 [facility] Comment on above: Performed By: #### L 100.0100, L503.7505, L500.2500, L500.3400, L501.2450 #### [facility] [address] [place], [address] Hemoglobin (Bld) [Mass/Vol] 11.1 g/dL Low 12.0-15.0 [facility] Comment on above: Performed By: #### L 100.0100, L503.7505, L500.2500, L500.3400, L501.2450 #### [facility] [address] [place], [address] IG% 0.300 Normal 0.0-0.9 [facility] Comment on above: Result Comment: IG% - Immature Granulocytes (promyelocytes, myelocytes and metamyelocytes) > 1% indicates that a LEFT SHIFT is Present. Performed By: #### L 100.0100, L503.7505, L500.2500, L500.3400, L501.2450 #### [facility] [address] [place], [address] Lymphocytes/100 WBC (Bld) 18.3 % Low 19-41 [facility] Comment on above: Performed By: #### L 100.0100, L503.7505, L500.2500, L500.3400, L501.2450 #### [facility] [address] [place], [address] MCH (RBC) [Entitic mass] 27.1 pg Normal 27.0-32.0 [facility] Comment on above: Performed By: #### L 100.0100, L503.7505, L500.2500, L500.3400, L501.2450 #### [facility] [address] [place], [address] MCHC (RBC) [Mass/Vol] 32.8 g/dL Normal 32-36 [facility] Comment on above: Performed By: #### L 100.0100, L503.7505, L500.2500, L500.3400, L501.2450 #### [facility] [address] [place], [address] MCV (RBC) [Entitic vol] 82.4 fL Normal 81-99 [facility] Comment on above: Performed By: #### L 100.0100, L503.7505, L500.2500, L500.3400, L501.2450 #### [facility] [address] [place], [address] Monocytes/100 WBC (Bld) 15.6 % High 0-10 [facility] Comment on above: Performed By: #### L 100.0100, L503.7505, L500.2500, L500.3400, L501.2450 #### [facility] [address] [place], [address] Neutrophils/100 WBC (Bld) 64.9 % Normal 47-70 [facility] Comment on above: Performed By: #### L 100.0100, L503.7505, L500.2500, L500.3400, L501.2450 #### [facility] [address] [place], [address] Nucleated RBC (Bld) [#/Vol] 0 10*3/uL Normal 0-5 [facility] Comment on above: Performed By: #### L 100.0100, L503.7505, L500.2500, L500.3400, L501.2450 #### [facility] [address] [place], [address] Platelet mean volume (Bld) [Entitic vol] 9.3 fL Normal 6.2-12.0 [facility] Comment on above: Performed By: #### L 100.0100, L503.7505, L500.2500, L500.3400, L501.2450 #### [facility] [address] [place], [address] Platelets (Bld) [#/Vol] 324 10*3/uL Normal 150-450 [facility] Comment on above: Performed By: #### L 100.0100, L503.7505, L500.2500, L500.3400, L501.2450 #### [facility] [address] [place], [address] RBC (Bld) [#/Vol] 4.10 10*6/uL Low 4.2-5.4 [facility] Comment on above: Performed By: #### L 100.0100, L503.7505, L500.2500, L500.3400, L501.2450 #### [facility] [address] [place] [place], [address] RDW SD 42.5 fl Normal 35.1-43.9 [facility] Comment on above: Performed By: #### L 100.0100, L503.7505, L500.2500, L500.3400, L501.2450 #### [facility] [address] [place], [address] WBC (Bld) [#/Vol] 8.6 10*3/uL Normal 4.4-11.0 [facility] Comment on above: Performed By: #### L 100.0100, L503.7505, L500.2500, L500.3400, L501.2450 #### [facility] [address] [place], [address] Chest 1 View (Portable)on Chest 1 View (Portable) [facility] Imaging Services [address] [place] [address] Chest 1 View (Portable) MR#: [id number] Acct: [id number] Name: DL PARSONS Rep #: [id number] : 1945 F 79 From: Lidia Roblero PCP: Dr. Kaitlyn Condon MD Status: [facility] ER Study: Chest 1 View (Portable) Date of Exam: 07/03/24 Exam# [id number] Ordering Dr: Pierre Haley DO [id number] EXAM: XR CHEST, 1 VIEW CLINICAL INDICATION: cough TECHNIQUE: Frontal view of the chest. COMPARISON: 06/01/2020. FINDINGS: LUNGS AND PLEURAL SPACES: Low lung volumes limit the exam. No consolidations. No pneumothorax. No effusion. HEART: Unremarkable. Cardiac silhouette not enlarged. MEDIASTINUM: Central airways and mediastinal contour are unremarkable. BONES/JOINTS: Moderate dextroscoliosis. No acute fracture. SOFT TISSUES: Unremarkable. RAD/Chest 1 View (Portable) IMPRESSION: Low lung volumes limit the exam. No acute cardiopulmonary abnormality. No interval change. Electronically Signed: Lidia Rao MD at 7:20 EST , CC: Dr. Kaitlyn Condon MD; Dr. Pierre Haley DO Rail Operator: Signed Normal [facility] Emergency Department Summary on 07-03-2024 Emergency Department Summary [facility] Medical Records Department [address] [place] [id number] Emergency Department Summary 07/03/24 MR#: [id number] Acct: [id number] Name: DL PARSONS Rep #: [id number] : 1945 79 From: Pierre Haley DO PCP: Dr. Kaitlyn Condon MD [facility]: ED HPI History of Present Illness Chief Complaint: Shortness of Breath [facility] Medical History Need for influenza vaccination Syncope Wears glasses Post-menopausal Thyroid disease Diabetes Walker as ambulation aid Ambulates with cane Injury of head and neck Gastric reflux Non-smoker History of edema History of echocardiogram History of stress test Bronchitis Shortness of breath on exertion Obesity History of COVID-19 Incontinence Difficulty balancing when standing Knee pain Diarrhea Hemorrhoids COVID-19 Pancreatitis Asthma Arthritis Seasonal allergies Osteopenia Essential hypertension Ascending cholangitis Gallstone pancreatitis Home Medications ???Medication ???Instructions ???Recorded ???Last Taken ???Type lancets (Accu-Chek Multiclix #100 ea 07/02/20 Unknown History Lancet) fluticasone propionate 110 2 puff inhalation BID #12 grams 12/07/21 Unknown Rx mcg/actuation HFA aerosol inhaler (Flovent HFA) geriatric multivitamin-min 1 tab PO MOTH 01/28/22 Unknown History handicap placard #1 ea 07/06/23 Unknown Rx blood-glucose meter #1 ea 07/11/23 Unknown Rx lancets (Accu-Chek Softclix #100 ea 07/11/23 Unknown Rx Lancets) alcohol swabs 1 pad topical BID #100 ea 07/18/23 Unknown Rx accu-check avivia control solutions #1 BOTTLE 10/17/23 Unknown Rx blood sugar diagnostic (Accu-Chek #100 ea 10/31/23 Unknown Rx Guide test strips) amlodipine 10 mg tablet 10 mg PO DAILY BLOOD PRESSURE #90 02/23/24 Unknown Rx tabs atorvastatin 10 mg tablet 10 mg PO QHS CHOLESTEROL #90 tabs 02/23/24 Unknown Rx ergocalciferol (vitamin D2) 1,250 1,250 mcg PO QWEEK #14 caps 02/23/24 Unknown Rx mcg (50,000 unit) capsule irbesartan 300 1 tab PO DAILY BP #90 tabs 02/23/24 Unknown Rx mg-hydrochlorothiazide 12.5 mg tablet (Avalide) lansoprazole 30 mg capsule,delayed 30 mg PO DAILY #90 caps 02/23/24 Unknown Rx release levothyroxine 75 mcg tablet 75 mcg PO DAILY THYROID #90 tabs 02/23/24 Unknown Rx metformin 500 mg tablet 500 mg PO BID DIABETES #180 tabs 02/23/24 Unknown Rx metoprolol tartrate 25 mg tablet 25 mg PO BID BLOOD PRESSURE #180 02/23/24 Unknown Rx tabs potassium chloride 8 mEq 8 meq PO BID #180 caps 02/25/24 Unknown Rx capsule,extended release albuterol sulfate 90 mcg/actuation 2 inh inhalation Q6H PRN 05/30/24 Unknown Rx aerosol inhaler bronchospasm #8.5 grams Allergy/AdvReac Type Severity Reaction Status Date / Time Penicillins Allergy Rash Verified 07/03/24 05:54 Sulfa (Sulfonamide Allergy Rash Verified 07/03/24 05:54 Antibiotics) calcium AdvReac Constipatio Verified 07/03/24 05:54 n sertraline AdvReac Constipatio Verified 07/03/24 05:54 n Family History Mother Diabetes Heart disease Arthritis Hypertension Hyperlipemia Father Colon cancer Heart disease Hypertension Hyperlipemia Cancer prostate Myocardial infarction Surgical History Hx laparoscopic cholecystectomy History of ERCP History of colonoscopy Cataracts, bilateral H/O: hysterectomy Cholecystectomy planned Social History Smoking Status: Never smoker alcohol intake: never substance use type: does not use what type of physical activity do you participate in: other details: yard work additional social history: pt denies vaping, denies marijuana use, denies edibles, denies aspirin, denies ibuprofen use. EXAM Physical Exam Const Vital Signs: 07/03/24 05:55 07/03/24 05:57 07/03/24 06:14 Temperature 99.6 F H 99.6 F H Temperature Source Oral Oral Pulse Rate 83 82 77 Respiratory Rate 20 H 20 H 18 Respiratory Effort Respiratory Depth Respiratory Pattern Blood Pressure 151/65 H 151/65 H Blood Pressure Mean 93 93 Pulse Ox 94 94 Oxygen Delivery Method Room Air Room Air 07/03/24 06:18 07/03/24 06:19 07/03/24 06:57 Temperature 99.3 F H Temperature Source Oral Pulse Rate 77 Respiratory Rate 18 Respiratory Effort Short of Breath Respiratory Depth Normal Respiratory Pattern Tachypnea Blood Pressure 144/69 H Blood Pressure Mean 94 Pulse Ox 93 Oxygen Delivery Method Room Air Room Air Room Air 07/03/24 07:00 07/03/24 08:00 07/03/24 08:00 Temperature 99.3 F H 98.7 F (more content not included)... Normal [facility] L501.4020on 07-03-2024 TROPONIN-I HS 4 pg/mL Normal 3.0-54.0 [facility] Comment on above: Result Comment: Plea se Note: New Test Units and Gender Specific Reference Ranges. For more information see Policy Stat Procedure [place] High Sensitivity Troponin (TNIH) and attachments. Performed By: #### L 501.4020 ####[facility] [address] [place], [address] L501.5425on 07-03-2024 TROPONIN-I HS 4 pg/mL Normal 3.0-54.0 [facility] Comment on above: Order Comment: 1Y Result Comment: Plea se Note: New Test Units and Gender Specific Reference Ranges. For more information see Policy Stat Procedure [place] High Sensitivity Troponin (TNIH) and attachments. Performed By: #### L 100.0100, L503.7505, L500.2500, L500.3400, L501.2450 #### [facility] [address] [place], [address] M100.678on 07-03-2024 M100.678 Copy of report sent to Infection Control Printer [id number] 07/03/24 0757 [facility]. Pending SARS-CoV-2 (COVID 19) A Positive A INFLUENZA A Negative INFLUENZA B Negative RSV PCR Negative SARS-CoV-2 (COVID 19 PCR) Normal [facility] Comment on above: Performed By: #### L 100.0100, L503.7505, L500.2500, L500.3400, L501.2450 #### [facility] [address] [place], [address] Laboratory - Chemistry and C hemistry - challengeOrdered By: Kaitlyn Condon on 02-22-2023 Free T4 [Mass/Vol] 1.39 ng/dL 0.76-1.46 [facility] No Panel InformationOrdered By: Kaitlyn Condon on 02-22-2023 Free Triiodothyronine (T3) pg/dL 2.0 pg/mL 2.18-3.98 [facility] Thyroid Stimulating Hormone (TSH) 2.26 uIU/mL 0.358-3.74 [facility] Culture, urineOrdered By: Dr Piedad Condon on 01-02-2023 Bacteria identified Cx Nom (U) ESBL Escherichia coli [facility] Absolute lymphocyte countOrd ered By: Dr. Condon on 12-31-2022 Lymphocytes Auto (Unsp spec) [#/Vol] 2.40 10*3/uL 0.83-4.51 [facility] Basophil percentageOrdered B y: Dr. Condon on 12-31-2022 Basophils/100 WBC (Bld) 0.7 % 0-1 [facility] Bilirubin [Mass/Vol] 1.20 mg/dL 0.20-1.00 [facility] Comment on above: For patients on eltr ombopag therapy, use of Dimension [place] TBIL is not recommended. Chloride [Moles/Vol] 98 mmol/L 98-107 [facility] Cholesterol [Mass/Vol] 129 mg/dL <200 [facility] Comment on above: <200 mg/dL Desirable 200-240 mg/dL Borderline >240 mg/dL High Risk Eosinophils/100 WBC (Bld) 3.5 % 0-5 [facility] Glucose [Mass/Vol] 141 mg/dL 74-106 [facility] Comment on above: Fasting Glucose resu lt greater than or equal to 126 mg/dL suggests DIABETES MELLITUS per A.D.A. criteria. Neutrophils (Bld) [#/Vol] 5.0 10*3/uL 2.0-7.7 [facility] Neutrophils/100 WBC (Bld) 59.1 % 47-70 [facility] Potassium [Moles/Vol] 3.7 mmol/L 3.5-5.1 [facility] Protein [Mass/Vol] 7.6 g/dL 6.4-8.2 [facility] Sodium [Moles/Vol] 133 mmol/L 136-145 [facility] Triglyceride [Mass/Vol] 111 mg/dL <199 [facility] Comment on above: The drugs N-Acetylcy steine and Metamizole may falsely depress this assay.Serum Triglycerides Reference Interval Normal <150 mg/dL Borderline high 150 - 199 mg/dL High 200 - 499 mg/dL Very High > or = 500 mg/dL WBC (Bld) [#/Vol] 8.4 10*3/uL 4.4-11.0 [facility] Blood erythrocytes count (nu mber/volume)Ordered By: Dr. Condon on 12-31-2022 RBC (Bld) [#/Vol] 4.73 10*6/uL 4.2-5.4 [facility] Blood hemoglobin measurement (mass/volume)Ordered By: Dr. Condon on 12-31-2022 Hemoglobin (Bld) [Mass/Vol] 12.7 g/dL 12.0-15.0 [facility] Blood lymphocytes/100 leukoc ytesOrdered By: Dr. Condon on 12-31-2022 Lymphocytes/100 WBC (Bld) 28.6 % 19-41 [facility] Blood monocytes/100 leukocyt esOrdered By: Dr. Condon on 12-31-2022 Monocytes/100 WBC (Bld) 7.7 % 0-10 [facility] Blood platelet mean volumeOr dered By: Dr. Condon on 12-31-2022 Platelet mean volume (Bld) [Entitic vol] 10.1 fL 6.2-12.0 [facility] Determination of erythrocyte mean corpuscular volume (MCV)Ordered By: Dr. Condon on 12-31-2022 MCV (RBC) [Entitic vol] 85.4 fL 81-99 [facility] Hematocrit Auto (Bld) [Volum e fraction]Ordered By: Dr. Condon on 12-31-2022 Hematocrit (Bld) [Volume fraction] 40.4 % 37-47 [facility] Laboratory - Chemistry and C hemistry - challengeOrdered By: Dr. Condon on 12-31-2022 ALP [Catalytic activity/Vol] 91 U/L 45-117 [facility] ALT [Catalytic activity/Vol] 22 U/L 13-56 [facility] CO2 [Moles/Vol] 28.0 mmol/L 21.0-32.0 [facility] Free T4 [Mass/Vol] 1.50 ng/dL 0.76-1.46 [facility] Globulin (S) [Mass/Vol] 4.1 g/dL 2.2-4.2 [facility] Magnesium [Mass/Vol] 2.0 mg/dL 1.6-2.6 [facility] Urea nitrogen/Creatinine [Mass ratio] 12.3 mg/mg 10-20 [facility] Laboratory - Hematology and Cell countsOrdered By: Dr. Condon on 12-31-2022 Erythrocyte distribution width (RBC) [Entitic vol] 43.3 fL 35.1-43.9 [facility] Erythrocyte distribution width (RBC) [Ratio] 13.8 % 11.6-14.6 [facility] Immature granulocytes/100 WBC (Bld) 0.400 % 0.0-0.9 [facility] Comment on above: IG% - Immature Granu locytes (promyelocytes, myelocytes and metamyelocytes) > 1% indicates that a LEFT SHIFT is Present. MCH (RBC) [Entitic mass] 26.8 pg 27.0-32.0 [facility] Nucleated RBC/100 WBC (Bld) [Ratio] 0 % 0-5 [facility] MCHC Auto (RBC) [Mass/Vol]Or dered By: Dr. Condon on 12-31-2022 MCHC (RBC) [Mass/Vol] 31.4 g/dL 32-36 [facility] No Panel InformationOrdered By: Dr. Condon on 12-31-2022 Estimated GFR (MDRD) Amer 88 mL/min >60 [facility] Comment on above: GFR Calc Estimated GFR (MDRD) Non-Af Amer 73 mL/min >60 [facility] Comment on above: Non- GFR Calc Free Triiodothyronine (T3) pg/dL 2.1 pg/mL 2.18-3.98 [facility] Thyroid Stimulating Hormone (TSH) 3.89 uIU/mL 0.358-3.74 [facility] Vitamin D 25-Hydroxy 62.1 ng/mL [facility] Comment on above: Vitamin D 25(OH) Sta tus Range Deficiency <20 ng/mL (50nmol/L) Insufficiency 20 - 30 ng/mL (50 - 75 nmol/L) Sufficiency 30 - 100 ng/mL (75 - 250 nmol/L) Toxicity >100 ng/mL (>250 nmol/L) Platelets bldOrdered By: Dr. Condon on 12-31-2022 Platelets (Bld) [#/Vol] 427 10*3/uL 150-450 [facility] Serum or plasma albumin john urement (mass/volume)Ordered By: Dr. Condon on 12-31-2022 Albumin [Mass/Vol] 3.5 g/dL 3.2-5.0 [facility] Serum or plasma albumin/glob ulin mass ratioOrdered By: Dr. Condon on 12-31-2022 Albumin/Globulin [Mass ratio] 0.9 {ratio} 0.9-2.4 [facility] Serum or plasma calcium john urement (mass/volume)Ordered By: Dr. Condon on 12-31-2022 Calcium [Mass/Vol] 9.4 mg/dL 8.5-10.1 [facility] Serum or plasma cholesterol in HDL measurement (mass/volume)Ordered By: Dr. Condon on 12-31-2022 Cholesterol in HDL [Mass/Vol] 54 mg/dL >40 [facility] Comment on above: The drugs N-Acetylcy steine and Metamizole may falsely depress this assay. Reference Range HDL <40 mg/dL Low HDL Cholesterol HDL >or= 60 mg/dL High HDL Cholesterol Serum or plasma cholesterol in VLDL measurement (mass/volume)Ordered By: Dr. Condon on 12-31-2022 Cholesterol in VLDL [Mass/Vol] 22 mg/dL 5-40 [facility] Serum or plasma creatinine m easurement (mass/volume)Ordered By: Dr. Condon on 12-31-2022 Creatinine [Mass/Vol] 0.81 mg/dL 0.55-1.02 [facility] Comment on above: The validity of the calculated GFR & GFRAA in patients over 70 years has not been determined. Clinical correlation is essential. Serum or plasma low density lipoprotein (LDL) cholesterol measurement (mass/volume)Ordered By: Dr. Condon on 12-31-2022 Cholesterol in LDL [Mass/Vol] 53 mg/dL 0-130 [facility] Serum or plasma urea nitroge n measurement (mass/volume)Ordered By: Dr. Condon on 12-31-2022 Urea nitrogen [Mass/Vol] 10 mg/dL 7-18 [facility] Thin prep Papanicolaou smear with manual screeningOrdered By: Dr. Condon on 12-31-2022 Thin prep Papanicolaou smear with manual screening 17 U/L 15-37 [facility] Thin prep Papanicolaou smear with manual screening 7 5-15 [facility] Whole blood hemoglobin A1c/t otal hemoglobin ratio (mass fraction)Ordered By: Dr. Condon on 12-31-2022 HbA1c (Bld) [Mass fraction] 7.3 % 3.8-5.6 [facility] Comment on above: Normal < 5.7 % Predi abetic 5.7 - 6.4 % Diabetic >or= 6.5 % Please note range changes. Culture, urineOrdered By: Kendal Condon on 12-30-2022 Bacteria identified Cx Nom (U) ESBL Escherichia coli [facility] Laboratory - Chemistry and C hemistry - challengeon 12-30-2022 Bilirubin Ql (U) Small (1+) [facility] Glucose Ql (U) Negative [facility] Ketones Ql (U) Negative [facility] pH (U) 6.0 [pH] [facility] Urobilinogen (U) [Mass/Vol] 1 mg/dL [facility] Laboratory - Hematology and Cell countson 12-30-2022 Hemoglobin Ql (U) Trace [facility] Laboratory - Specimen inform ationon 12-30-2022 Clarity (U) Clear [facility] Color (U) ORANGE [facility] Laboratory - Urinalysison Nitrite Ql (U) Negative [facility] Protein Ql (U) Trace [facility] No Panel Informationon 12-30 Urine Leukocytes Positive [facility] Absolute lymphocyte counton 06-09-2022 Lymphocytes Auto (Unsp spec) [#/Vol] 2.51 10*3/uL 0.83-4.51 [facility] Work Phone: Basophil percentageon 2021 Basophils/100 WBC (Bld) 0.8 % 0-1 [facility] Work Phone: Bilirubin [Mass/Vol] 1.10 mg/dL 0.20-1.00 [facility] Work Phone: Comment on above: For patients on eltr ombopag therapy, use of Dimension [place] TBIL is not recommended. Chloride [Moles/Vol] 100 mmol/L 98-107 [facility] Work Phone: [phone] Cholesterol [Mass/Vol] 141 mg/dL <200 [facility] Work Phone: [phone] Comment on above: <200 mg/dL Desirable 200-240 mg/dL Borderline >240 mg/dL High Risk Eosinophils/100 WBC (Bld) 2.8 % 0-5 [facility] Work Phone: [phone] Glucose [Mass/Vol] 130 mg/dL 74-106 [facility] Work Phone: Comment on above: Fasting Glucose resu lt greater than or equal to 126 mg/dL suggests DIABETES MELLITUS per A.D.A. criteria. Neutrophils (Bld) [#/Vol] 5.5 10*3/uL 2.0-7.7 [facility] Work Phone: [phone] Neutrophils/100 WBC (Bld) 60.6 % 47-70 [facility] Work Phone: [phone] Potassium [Moles/Vol] 3.9 mmol/L 3.5-5.1 [facility] Work Phone: [phone] Protein [Mass/Vol] 7.7 g/dL 6.4-8.2 [facility] Work Phone: [phone] Sodium [Moles/Vol] 135 mmol/L 136-145 [facility] Work Phone: [phone] Triglyceride [Mass/Vol] 92 mg/dL <199 [facility] Work Phone: [phone] Comment on above: The drugs N-Acetylcy steine and Metamizole may falsely depress this assay.Serum Triglycerides Reference Interval Normal <150 mg/dL Borderline high 150 - 199 mg/dL High 200 - 499 mg/dL Very High > or = 500 mg/dL WBC (Bld) [#/Vol] 9.1 10*3/uL 4.4-11.0 [facility] Work Phone: [phone] Blood erythrocytes count (nu mber/volume)on 06-09-2022 RBC (Bld) [#/Vol] 4.90 10*6/uL 4.2-5.4 [facility] Work Phone: [phone] Blood hemoglobin measurement (mass/volume)on 06-09-2022 Hemoglobin (Bld) [Mass/Vol] 13.4 g/dL 12.0-15.0 [facility] Work Phone: Blood lymphocytes/100 leukoc yteson 06-09-2022 Lymphocytes/100 WBC (Bld) 27.7 % 19-41 [facility] Work Phone: Blood monocytes/100 leukocyt eson 06-09-2022 Monocytes/100 WBC (Bld) 7.9 % 0-10 [facility] Work Phone: Blood platelet mean volumeon 06-09-2022 Platelet mean volume (Bld) [Entitic vol] 9.9 fL 6.2-12.0 [facility] Work Phone: [phone] Determination of erythrocyte mean corpuscular volume (MCV)on 06-09-2022 MCV (RBC) [Entitic vol] 84.9 fL 81-99 [facility] Work Phone: [phone] Hematocrit Auto (Bld) [Volum e fraction]on 06-09-2022 Hematocrit (Bld) [Volume fraction] 41.6 % 37-47 [facility] Work Phone: [phone] Laboratory - Chemistry and C hemistry - challengeon 06-09-2022 ALP [Catalytic activity/Vol] 87 U/L 45-117 [facility] Work Phone: [phone] ALT [Catalytic activity/Vol] 29 U/L 13-56 [facility] Work Phone: [phone] CO2 [Moles/Vol] 31.0 mmol/L 21.0-32.0 [facility] Work Phone: [phone] Free T4 [Mass/Vol] 1.47 ng/dL 0.76-1.46 [facility] Work Phone: [phone] Globulin (S) [Mass/Vol] 3.9 g/dL 2.2-4.2 [facility] Work Phone: Urea nitrogen/Creatinine [Mass ratio] 10.0 mg/mg 10-20 [facility] Work Phone: Laboratory - Hematology and Cell countson 06-09-2022 Erythrocyte distribution width (RBC) [Entitic vol] 46.8 fL 35.1-43.9 [facility] Work Phone: Erythrocyte distribution width (RBC) [Ratio] 15.1 % 11.6-14.6 [facility] Work Phone: Immature granulocytes/100 WBC (Bld) 0.200 % 0.0-0.9 [facility] Work Phone: Comment on above: IG% - Immature Granu locytes (promyelocytes, myelocytes and metamyelocytes) > 1% indicates that a LEFT SHIFT is Present. MCH (RBC) [Entitic mass] 27.3 pg 27.0-32.0 [facility] Work Phone: Nucleated RBC/100 WBC (Bld) [Ratio] 0 % 0-5 [facility] Work Phone: HbA1c (Bld) [Mass fraction] 6.8 % 4.2-6.3 [facility] Work Phone: MCHC Auto (RBC) [Mass/Vol]on 06-09-2022 MCHC (RBC) [Mass/Vol] 32.2 g/dL 32-36 [facility] Work Phone: No Panel Informationon 06-09 Estimated GFR (MDRD) Amer 89 mL/min >60 [facility] Work Phone: Comment on above: GFR Calc Estimated GFR (MDRD) Non-Af Amer 74 mL/min >60 [facility] Work Phone: Comment on above: Non- GFR Calc Free Triiodothyronine (T3) pg/dL 2.2 pg/mL 2.18-3.98 [facility] Work Phone: Thyroid Stimulating Hormone (TSH) 1.76 uIU/mL 0.358-3.74 [facility] Work Phone: Platelets bldon 06-09-2022 Platelets (Bld) [#/Vol] 384 10*3/uL 150-450 [facility] Work Phone: Serum or plasma albumin john urement (mass/volume)on 06-09-2022 Albumin [Mass/Vol] 3.8 g/dL 3.2-5.0 [facility] Work Phone: Serum or plasma albumin/glob ulin mass ratioon 06-09-2022 Albumin/Globulin [Mass ratio] 1.0 {ratio} 0.9-2.4 [facility] Work Phone: Serum or plasma calcium john urement (mass/volume)on 06-09-2022 Calcium [Mass/Vol] 9.4 mg/dL 8.5-10.1 [facility] Work Phone: Serum or plasma cholesterol in HDL measurement (mass/volume)on 06-09-2022 Cholesterol in HDL [Mass/Vol] 62 mg/dL >40 [facility] Work Phone: Comment on above: The drugs N-Acetylcy steine and Metamizole may falsely depress this assay. Reference Range HDL <40 mg/dL Low HDL Cholesterol HDL >or= 60 mg/dL High HDL Cholesterol Serum or plasma cholesterol in VLDL measurement (mass/volume)on 06-09-2022 Cholesterol in VLDL [Mass/Vol] 18 mg/dL 5-40 [facility] Work Phone: Serum or plasma creatinine m easurement (mass/volume)on 06-09-2022 Creatinine [Mass/Vol] 0.80 mg/dL 0.55-1.02 [facility] Work Phone: Comment on above: The validity of the calculated GFR & GFRAA in patients over 70 years has not been determined. Clinical correlation is essential. Serum or plasma low density lipoprotein (LDL) cholesterol measurement (mass/volume)on 06-09-2022 Cholesterol in LDL [Mass/Vol] 61 mg/dL 0-130 [facility] Work Phone: Serum or plasma urea nitroge n measurement (mass/volume)on 06-09-2022 Urea nitrogen [Mass/Vol] 8 mg/dL 7-18 [facility] Work Phone: Thin prep Papanicolaou smear with manual screeningon 06-09-2022 Thin prep Papanicolaou smear with manual screening 13 U/L 15-37 [facility] Work Phone: Thin prep Papanicolaou smear with manual screening 4 5-15 [facility] Work Phone: Glucose Glucometer (BldC) [M ass/Vol]on 02-02-2022 Glucose [Mass/Vol] 137 mg/dL 74-106 [facility] Work Phone: Comment on above: MANAGEMENT OF PATIEN T CARE PER NURSING PROTOCOL Glucose Glucometer (BldC) [M ass/Vol]on 01-05-2022 Glucose [Mass/Vol] 155 mg/dL 74-106 [facility] Work Phone: Comment on above: MANAGEMENT OF PATIEN T CARE PER NURSING PROTOCOL Absolute lymphocyte counton 12-07-2021 Lymphocytes Auto (Unsp spec) [#/Vol] 2.06 10*3/uL 0.83-4.51 [facility] Work Phone: Basophil percentageon 2021 Basophil percentage 25-50 SEEN /hpf 0-5 [facility] Work Phone: Basophils/100 WBC (Bld) 0.7 % 0-1 [facility] Work Phone: Bilirubin [Mass/Vol] 0.90 mg/dL 0.20-1.00 [facility] Work Phone: Comment on above: For patients on eltr ombopag therapy, use of Dimension [place] TBIL is not recommended. Chloride [Moles/Vol] 99 mmol/L 98-107 [facility] Work Phone: Cholesterol [Mass/Vol] 135 mg/dL <200 [facility] Work Phone: Comment on above: <200 mg/dL Desirable 200-240 mg/dL Borderline >240 mg/dL High Risk Eosinophils/100 WBC (Bld) 5.0 % 0-5 [facility] Work Phone: Glucose [Mass/Vol] 128 mg/dL 74-106 [facility] Work Phone: Comment on above: Fasting Glucose resu lt greater than or equal to 126 mg/dL suggests DIABETES MELLITUS per A.D.A. criteria. Neutrophils (Bld) [#/Vol] 4.0 10*3/uL 2.0-7.7 [facility] Work Phone: [phone] Neutrophils/100 WBC (Bld) 57.6 % 47-70 [facility] Work Phone: [phone] Potassium [Moles/Vol] 3.7 mmol/L 3.5-5.1 [facility] Work Phone: [phone] Protein [Mass/Vol] 7.6 g/dL 6.4-8.2 [facility] Work Phone: [phone] Sodium [Moles/Vol] 135 mmol/L 136-145 [facility] Work Phone: Triglyceride [Mass/Vol] 96 mg/dL <199 [facility] Work Phone: Comment on above: The drugs N-Acetylcy steine and Metamizole may falsely depress this assay.Serum Triglycerides Reference Interval Normal <150 mg/dL Borderline high 150 - 199 mg/dL High 200 - 499 mg/dL Very High > or = 500 mg/dL WBC (Bld) [#/Vol] 7.0 10*3/uL 4.4-11.0 [facility] Work Phone: Bilirubin Test strip Ql (U)o n 12-07-2021 Bilirubin Ql (U) Negative Negative [facility] Work Phone: Blood erythrocytes count (nu mber/volume)on 12-07-2021 RBC (Bld) [#/Vol] 4.58 10*6/uL 4.2-5.4 [facility] Work Phone: Blood hemoglobin measurement (mass/volume)on 12-07-2021 Hemoglobin (Bld) [Mass/Vol] 12.2 g/dL 12.0-15.0 [facility] Work Phone: [phone] Blood lymphocytes/100 leukoc yteson 12-07-2021 Lymphocytes/100 WBC (Bld) 29.6 % 19-41 [facility] Work Phone: Blood monocytes/100 leukocyt eson 12-07-2021 Monocytes/100 WBC (Bld) 7.0 % 0-10 [facility] Work Phone: Blood platelet mean volumeon 12-07-2021 Platelet mean volume (Bld) [Entitic vol] 10.1 fL 6.2-12.0 [facility] Work Phone: Culture, urineon 12-07-2021 Bacteria identified Cx Nom (U) GNR lactose catalogue and special products manager [facility] Work Phone: [phone] Determination of erythrocyte mean corpuscular volume (MCV)on 12-07-2021 MCV (RBC) [Entitic vol] 84.7 fL 81-99 [facility] Work Phone: [phone] Hematocrit Auto (Bld) [Volum e fraction]on 12-07-2021 Hematocrit (Bld) [Volume fraction] 38.8 % 37-47 [facility] Work Phone: Ketones Test strip Ql (U)on 12-07-2021 Ketones Ql (U) Negative Negative [facility] Work Phone: Laboratory - Chemistry and C hemistry - challengeon 12-07-2021 ALP [Catalytic activity/Vol] 88 U/L 45-117 [facility] Work Phone: [phone] ALT [Catalytic activity/Vol] 29 U/L 13-56 [facility] Work Phone: [phone] CO2 [Moles/Vol] 31.0 mmol/L 21.0-32.0 [facility] Work Phone: [phone] Free T4 [Mass/Vol] 1.62 ng/dL 0.76-1.46 [facility] Work Phone: [phone] Globulin (S) [Mass/Vol] 4.0 g/dL 2.2-4.2 [facility] Work Phone: [phone] Magnesium [Mass/Vol] 2.0 mg/dL 1.6-2.6 [facility] Work Phone: [phone] Urea nitrogen/Creatinine [Mass ratio] 9.8 mg/mg 10-20 [facility] Work Phone: [phone] Bilirubin Ql (U) Negative [facility] Work Phone: [phone] Glucose Ql (U) Negative [facility] Work Phone: [phone] Ketones Ql (U) Negative [facility] Work Phone: [phone] pH (U) 6.0 [pH] [facility] Work Phone: [phone] Specific gravity (U) [Rel density] 1.010 [facility] Work Phone: [phone] Urobilinogen (U) [Mass/Vol] Negative [facility] Work Phone: [phone] Laboratory - Hematology and Cell countson 12-07-2021 Erythrocyte distribution width (RBC) [Entitic vol] 47.4 fL 35.1-43.9 [facility] Work Phone: [phone] Erythrocyte distribution width (RBC) [Ratio] 15.3 % 11.6-14.6 [facility] Work Phone: [phone] Immature granulocytes/100 WBC (Bld) 0.100 % 0.0-0.9 [facility] Work Phone: [phone] Comment on above: IG% - Immature Granu locytes (promyelocytes, myelocytes and metamyelocytes) > 1% indicates that a LEFT SHIFT is Present. MCH (RBC) [Entitic mass] 26.6 pg 27.0-32.0 [facility] Work Phone: [phone] Nucleated RBC/100 WBC (Bld) [Ratio] 0 % 0-5 [facility] Work Phone: [phone] Hemoglobin Ql (U) Negative [facility] Work Phone: Laboratory - Specimen inform ationon 12-07-2021 Clarity (U) Clear [facility] Work Phone: Color (U) YELLOW [facility] Work Phone: Laboratory - Urinalysison Nitrite Ql (U) Negative [facility] Work Phone: Protein Ql (U) Negative [facility] Work Phone: MCHC Auto (RBC) [Mass/Vol]on 12-07-2021 MCHC (RBC) [Mass/Vol] 31.4 g/dL 32-36 [facility] Work Phone: Mucus LM Ql (Urine sed)on Mucus Ql (Urine sed) 0 SEEN /hpf [facility] Work Phone: Nitrite Test strip Ql (U)on 12-07-2021 Nitrite Ql (U) Negative Negative [facility] Work Phone: No Panel Informationon 12-07 Estimated GFR (MDRD) Amer 103 mL/min >60 [facility] Work Phone: Comment on above: GFR Calc Estimated GFR (MDRD) Non-Af Amer 85 mL/min >60 [facility] Work Phone: Comment on above: Non- GFR Calc Free Triiodothyronine (T3) pg/dL 2.2 pg/mL 2.18-3.98 [facility] Work Phone: Thyroid Stimulating Hormone (TSH) 2.08 uIU/mL 0.358-3.74 [facility] Work Phone: Vitamin D 25-Hydroxy 78.9 ng/mL [facility] Work Phone: Comment on above: Vitamin D 25(OH) Sta tus Range Deficiency <20 ng/mL (50nmol/L) Insufficiency 20 - 30 ng/mL (50 - 75 nmol/L) Sufficiency 30 - 100 ng/mL (75 - 250 nmol/L) Toxicity >100 ng/mL (>250 nmol/L) Urine Leukocytes Positive [facility] Work Phone: Urine Non-Hemolyzed Blood Negative [facility] Work Phone: [phone] Platelets bldon 12-07-2021 Platelets (Bld) [#/Vol] 363 10*3/uL 150-450 [facility] Work Phone: Protein Test strip Ql (U)on 12-07-2021 Protein Ql (U) Negative Negative [facility] Work Phone: [phone] Serum or plasma albumin john urement (mass/volume)on 12-07-2021 Albumin [Mass/Vol] 3.6 g/dL 3.2-5.0 [facility] Work Phone: Serum or plasma albumin/glob ulin mass ratioon 12-07-2021 Albumin/Globulin [Mass ratio] 0.9 {ratio} 0.9-2.4 [facility] Work Phone: Serum or plasma calcium john urement (mass/volume)on 12-07-2021 Calcium [Mass/Vol] 9.6 mg/dL 8.5-10.1 [facility] Work Phone: Serum or plasma cholesterol in HDL measurement (mass/volume)on 12-07-2021 Cholesterol in HDL [Mass/Vol] 49 mg/dL >40 [facility] Work Phone: Comment on above: The drugs N-Acetylcy steine and Metamizole may falsely depress this assay. Reference Range HDL <40 mg/dL Low HDL Cholesterol HDL >or= 60 mg/dL High HDL Cholesterol Serum or plasma cholesterol in VLDL measurement (mass/volume)on 12-07-2021 Cholesterol in VLDL [Mass/Vol] 19 mg/dL 5-40 [facility] Work Phone: Serum or plasma creatinine m easurement (mass/volume)on 12-07-2021 Creatinine [Mass/Vol] 0.71 mg/dL 0.55-1.02 [facility] Work Phone: Comment on above: The validity of the calculated GFR & GFRAA in patients over 70 years has not been determined. Clinical correlation is essential. Serum or plasma low density lipoprotein (LDL) cholesterol measurement (mass/volume)on 12-07-2021 Cholesterol in LDL [Mass/Vol] 67 mg/dL 0-130 [facility] Work Phone: Serum or plasma urea nitroge n measurement (mass/volume)on 12-07-2021 Urea nitrogen [Mass/Vol] 7 mg/dL 7-18 [facility] Work Phone: [phone] Squamous epithelial cells de tection in urine sediment by light microscopyon 12-07-2021 Epithelial cells.squamous LM Ql (Urine sed) 0-5 SEEN /hpf 5-10 [facility] Work Phone: Thin prep Papanicolaou smear with manual screeningon 12-07-2021 Thin prep Papanicolaou smear with manual screening 18 U/L 15-37 [facility] Work Phone: Thin prep Papanicolaou smear with manual screening 5 5-15 [facility] Work Phone: [phone] Urine blood detectionon - RBC Ql (U) Negative Negative [facility] Work Phone: [phone] RBC Ql (U) 0 SEEN /hpf 0-5 [facility] Work Phone: Urine clarityon 12-07-2021 Clarity (U) Sl. Cloudy Clear [facility] Work Phone: Urine color determinationon 12-07-2021 Color (U) Yellow Yellow [facility] Work Phone: Urine glucose detectionon Glucose Ql (U) Normal mg/dl Normal [facility] Work Phone: [phone] Urine leukocyte esterase det ection by dipstickon 12-07-2021 Leukocyte esterase Test strip Ql (U) 500 /ul Negative [facility] Work Phone: [phone] Urine pHon 12-07-2021 pH (U) 6.5 [pH] 5.0 - 8.0 [facility] Work Phone: Urine sediment bacteria coun t by microscopy (number/high power field)on 12-07-2021 Bacteria LM.HPF (Urine sed) [#/Area] 0 /[HPF] None Seen [facility] Work Phone: Urine specific gravity measu rementon 12-07-2021 Specific gravity (U) [Rel density] 1.010 1.002-1.03 0 [facility] Work Phone: Urobilinogen Auto test strip Ql (U)on 12-07-2021 Urobilinogen Ql (U) Normal mg/dl Normal [facility] Work Phone: Whole blood hemoglobin A1c/t otal hemoglobin ratio (mass fraction)on 12-07-2021 HbA1c (Bld) [Mass fraction] 7.2 % 3.8-5.6 [facility] Work Phone: Comment on above: Normal < 5.7 % Predi abetic 5.7 - 6.4 % Diabetic >or= 6.5 % Please note range changes. ALLIED HEALTHon 07-26-2019 [facility] HNO ID: [id number] Author: Chadd Marie (Tech) Service: Radiology Author Type: Re Dye Hand Type: [facility] Health Filed: 07/26/2019 11:31 AM Note Text: Radiology Service Progress Note PATIENT NAME: Dl Parsons DATE OF SERVICE: July 26, 2019 TIME: 11:31 AM PATIENT IDENTITY VERIFICATION COMPLETED USING TWO (2) IDENTIFIERS: Name and Date of confirmed by patient verbally and Name and Date of confirmed by identification band. PATIENT GENDER DATA: Female. status: : No status: NO. PATIENT RELEVANT IMPLANT DATA REVIEWED: Yes RADIOLOGY DEPARTMENT: MR; Exam(s) Completed: Head: Routine Brain PERIPHERAL IV DATA: Not applicable SIGNED BY: CHARLENE Marie July 26, 2019 11:31 AM Normal [facility] Basic Metabolic Panlon 07-26 Anion gap [Moles/Vol] 11 mmol/L Normal 9-18 [facility] Comment on above: Performed By: #### C BC, BMP, MG1, LIPB ####[facility] [address] [place], [place] [phone] Calcium [Mass/Vol] 9.1 mg/dL Normal 8.5-10.2 [facility] Comment on above: Performed By: #### C BC, BMP, MG1, LIPB ####[facility] [address] Chloride [Moles/Vol] 97 mmol/L Normal 97-105 [facility] Comment on above: Performed By: #### C BC, BMP, MG1, LIPB ####[facility] [address] [place] [id number] CO2 [Moles/Vol] 28 mmol/L Normal 22-30 [facility] Comment on above: Performed By: #### C BC, BMP, MG1, LIPB ####[facility] [address] [place] [address] Creatinine [Mass/Vol] 0.64 mg/dL Normal 0.58-0.96 [facility] Comment on above: Performed By: #### C BC, BMP, MG1, LIPB ####[facility] [address] [place] [address] eGFR- Amer. >60 Normal [facility] Comment on above: Performed By: #### C BC, BMP, MG1, LIPB ####[facility] [address] GFR/1.73 sq M predicted among non-blacks MDRD (S/P/Bld) [Vol rate/Area] mL/min/{1.73_m2} Normal [facility] Comment on above: Result Comment: eGFR (Estimated GFR) Units of measure: mL/min/1.73 meters squared eGFR is derived from the reexpressed MDRD Study equation using the following parameters: serum creatinine, age, gender and race. The creatinine assay has been calibrated to be traceable to IDMS. An eGFR <60 mL/min/1.73m2 for >3 months is consistent with chronic kidney disease. Refer to KDOQI guidelines for clinical interpretation. In patients with unstable renal function, e.g. those with acute kidney injury, the eGFR may not accurately reflect actual GFR. Performed By: #### C BC, BMP, MG1, LIPB ####[facility] [address] [place] [phone] Glucose [Mass/Vol] 124 mg/dL High 74-99 [facility] Comment on above: Result Comment: The [place] Diabetes Association (ADA) provides guidance for cutoff values for fasting glucose and random glucose. The ADA defines fasting as no caloric intake for at least 8 hours. Fasting plasma glucose results between 100 to 125 mg/dL indicate increased risk for diabetes (prediabetes). Fasting plasma glucose results greater than or equal to 126 mg/dL meet the criteria for diagnosis of diabetes. In the absence of unequivocal hyperglycemia, results should be confirmed by repeat testing. In a patient with classic symptoms of hyperglycemia or hyperglycemic crisis, random plasma glucose results greater than or equal to 200 mg/dL meet the criteria for diagnosis of diabetes. Reference: Standards of Medical Care in Diabetes 2016, [place] [employer] Association. Diabetes Care. 2016.39(Suppl 1). Performed By: #### C BC, BMP, MG1, LIPB ####[facility] [address] [place] [address] Potassium [Moles/Vol] 3.8 mmol/L Normal 3.7-5.1 [facility] Comment on above: Performed By: #### C BC, BMP, MG1, LIPB ####[facility] [address] [place] [address] Sodium [Moles/Vol] 136 mmol/L Normal 136-144 [facility] Comment on above: Performed By: #### C BC, BMP, MG1, LIPB ####[facility] [address] [place] [address] Urea nitrogen [Mass/Vol] 8 mg/dL Normal 7-21 [facility] Comment on above: Performed By: #### Shanita BC, BMP, MG1, LIPB ####[facility] [address] [place] [address] CASE MANAGEMon 07-26-2019 CASE MANAGEM HNO ID: [id number] Author: Pati Gonzalez (Sw) Service: Case Management Author Type: Portrait Photographer Type: Care Mgt Progress Note Filed: 07/26/2019 3:31 PM Note Text: CARE MANAGEMENT DISCHARGE NOTE SERVICE DATE: 07/26/2019 SERVICE TIME: 3:29 PM LOS: 0 days Admission Date: 07/25/2019 DISCHARGE ARRANGEMENT (list agency and phone number) Home Provider: Phone: CAREGIVER ASSESSMENT: Caregiver is ready, willing and able to meet the patient's needs as recommended by the inter-professional team? No Caregiver Needed Patient's transition needs and plan for meeting these needs: patient meets her own needs Does the patient have an acute stroke diagnosis, or has the patient had a stroke during this admission? No HANDOFF COMMUNICATION: Primary Care Physician: Name: Dr. Clarisa Pastrana TRANSPORTATION ARRANGEMENTS: Car to transport ADDITIONAL CONTACT RESOURCES: Discharge today to home. Sent summary of care to PCP. to transport. Will schedule own follow up appts. SIGNATURE: NGOZI Silver PATIENT NAME: Dl Parsons DATE: July 26, 2019 TIME: 3:28 PM PAGER/CONTACT #: [phone] [facility] CASE MANAGEM HNO ID: [id number] Author: Pati Gonzalez (Sw) Service: Case Management Author Type: Portrait Photographer Type: Care Mgt Progress Note Filed: 07/26/2019 2:43 PM Note Text: CARE MANAGEMENT PROGRESS NOTE SERVICE DATE: 07/26/2019 SERVICE TIME: 2:43 PM LOS: 0 days CM spoke to patient regarding PT recommendation of Home PT. Patient is not interested in HHC. Anticipate HNN. to transport. SIGNATURE: NGOZI Silver PATIENT NAME: Dl Parsons DATE: July 26, 2019 TIME: 2:43 PM PAGER/CONTACT #: [phone] [facility] HNO ID: [id number] Author: Pati Gonzalez (Sw) Service: Case Management Author Type: Portrait Photographer Type: Care Mgt Initial Assessment Filed: 07/26/2019 11:07 AM Note Text: CARE MANAGEMENT: ASSESSMENT AND DISCHARGE PLAN SERVICE DATE: 07/26/2019 SERVICE TIME: 11:04 AM PRIMARY CARE PHYSICIAN: Clarisa Pastrana MD - confirmed with patient ADMISSION STATUS: Observation MEDICAL: Patient/Seamless Tube Roller Stated Goals: To have reduction in symptoms To improve my functional status To return home to life as it was Health Insurance: [employer] MEDICARE PPO [employer] Medicare Health Issues Impacting Discharge Plan: Diabetes, hypertension, hyperlipidemia Last Discharge Date: 3/11/19 Is this Within the Past 30 days? N/A Advance Directive: Current Advance Directive: 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 Assist with AD Completion: Yes Action: Education Provided Health Literacy: 1. How often do you need to have someone help you when you read instructions, pamphlets, or other written material from your doctor or pharmacy? Never - 1 2. How confident are you filling out medical forms by yourself? Extremely - 1 If Patient scores > 3 on either question, the following interventions were put into place: Patient did not score > 3 FUNCTIONAL AND COGNITIVE/BEHAVIORAL PRIOR TO ADMISSION: Baseline Mental Status: Alert AND Oriented, Person, Place , Time and Situation Functional Status: Independent Does Patient Currently Receive Any Community Services or Home Care? None Equipment Prior to Admission: None Has the Patient Been in a Jail Facility in the Past 30 days? N/A SOCIAL: Living Arrangement: Home Lives With: Spouse Financial Resources: Unemployed Primary Contact: Extended Emergency Contact Information Primary Emergency Contact: Iain Parsons Address: [address] [place] [address] [place] [address] Mobile Relation: Spouse Supportive: Yes Other Important Patient Contacts: None Caregiver Assessment: Caregiver is ready, willing and able to meet the patient's needs as recommended by the inter-professional team? No Caregiver Needed Patient's transition needs and plan for meeting these needs: patient meets her own needs Does the patient have an acute stroke diagnosis, or has the patient had a stroke during this admission? No Medication Adherence: I am convinced of the importance of my prescription medication: Agree completely - 0 I worry that my prescription medication will do more harm than good to me Disagree completely - 0 I feel financially burdened by my uhn-um-yonrhb expenses for my prescription medication: Disagree completely - 0 Patient is categorized as low risk < 2 Are you interested in bedside delivery of your medications? No Is the Patient Psychosocially Complex? No ASSESSMENT AND PLAN: Medical Needs: None Psychosocial Needs: None FREEDOM OF CHOICE EXPLAINED: No - No placements necessary POTENTIAL TRANSITION PLANS Home To Be Determined CM met with patient bedside. Patient is from home with spouse. IPTA. Currently on 2L O2 and weaning. None [employer]. Watch for needs. PT/OT ordered. Await recommendations. to transport. Will schedule own follow up appts. SIGNATURE: NGOZI Silver PATIENT NAME: Dl Parsons DATE: July 26, 2019 TIME: 11:04 AM PAGER/CONTACT #: [phone] Normal [facility] CBCon 07-26-2019 Erythrocyte distribution width (RBC) [Ratio] 14.7 % Normal 11.5-15.0 [facility] Comment on above: Performed By: #### C BC, BMP, MG1, LIPB ####[facility] [address] [place] [address] Hematocrit (Bld) [Volume fraction] 37.9 % Normal 36.0-46.0 [facility] Comment on above: Performed By: #### C BC, BMP, MG1, LIPB ####[place] [address] Hemoglobin (Bld) [Mass/Vol] 12.3 g/dL Normal 11.5-15.5 [facility] Comment on above: Performed By: #### C BC, BMP, MG1, LIPB ####[place] [address] MCH (RBC) [Entitic mass] 26.9 pG Normal 26.0-34.0 [facility] Comment on above: Performed By: #### C BC, BMP, MG1, LIPB ####[place] [address] MCHC (RBC) [Mass/Vol] 32.5 g/dL Normal 30.5-36.0 [facility] Comment on above: Performed By: #### C BC, BMP, MG1, LIPB ####[facility] [address] [place] [address] MCV (RBC) [Entitic vol] 82.8 fL Normal 80.0-100.0 [facility] Comment on above: Performed By: #### C BC, BMP, MG1, LIPB ####[place] [address] Platelet mean volume (Bld) [Entitic vol] 9.6 fL Normal 9.0-12.7 [facility] Comment on above: Performed By: #### C BC, BMP, MG1, LIPB ####[facility] [address] [place], [place] [phone] Platelets (Bld) [#/Vol] 400 10*3/uL Normal 150-400 [facility] Comment on above: Performed By: #### C BC, BMP, MG1, LIPB ####[facility] [address] [place] [phone] RBC (Bld) [#/Vol] 4.58 10*6/uL Normal 3.90-5.20 [facility] Comment on above: Performed By: #### C BC, BMP, MG1, LIPB ####[facility] [address] [place] [phone] WBC (Bld) [#/Vol] 8.73 10*3/uL Normal 3.70-11.00 [facility] Comment on above: Performed By: #### C BC, BMP, MG1, LIPB ####[facility] [address] [place] [phone] HISTORY PHYSICALon HISTORY PHYSICAL HNO ID: [id number] Author: Lynn Keene (Pa) Service: Hospital Medicine Author Type: Physician Energy Sales Broker Type: HANDP Filed: 07/26/2019 4:02 AM Note Text: Attestation signed by Yuliana Marley at 07/27/2019 11:45 AM Attending Note I have personally discussed case with PAIGE and reviewed PAIGE note. Continue current mgt Yuliana Marley MD SERVICE DATE: 07/25/2019 SERVICE TIME: 11:10 PM HOSPITAL MEDICINE HISTORY AND PHYSICAL PCP: Clarisa Pastrana MD NIGHT AND WEEKEND COVERAGE: Nights: Please contact pager [phone]. SUBJECTIVE Chief Complaint: CP, gait instability HPI: This is a 74 year old female with a PMH significant for HTN, HLD,GERD, MYLES, hypothyroidism, asthma, T2DM, and diastolic dysfunction who presented to [place] ED for evaluation of chest pain and gait instability at home. Patient reports that she has had intermittent CP over the past month. Pain is noted as an ache or heaviness in the left chest with radiation into the left neck and also the left arm. She notes discomfort to worsen with exertion such as doing housework and tends to improve after short resting period. She was evaluated for this by cardiology recently with negative nuclear stress test and echo scheduled for next week. She was started on metoprolol for better BP control and noted no further chest pain over the past 2 weeks since starting the medication. However chest pain returned earlier this morning. She has also noted some dizziness as well as gait instability over the past two days. She has felt as if she has had to hold on to various objects around her home in order to steady herself. She reports taking her BP today and noted that it has been persistently in the 170s systolic today which is the highest that it has been for her. She was concerned she was having a stroke so pursued further evaluation in the ED. Patient is tearful and does tell me that she has been under a great deal of stress lately as her sister was recently diagnosed with multiple myeloma and has been very ill. She denies any SOB, palpitations, speech difficulty, visual changes, unnilateral weakness, numbness/tingling, abdominal pain, nausea, vomiting, diarrhea, LE swelling, orthopnea, URI symptoms, fevers or chills,. In the ED patient remained hemodynamically stable. EKG on admission showed NSR at 98 bpm without ischemic changes. Lab work was notable for mild leukocytosis (11.7) and hypomagnesemia (1.6). HST 8-->7. Patient underwent CXR, CTPE, CT brain, and CTA head/neck all of which were unremarkable. CTA did note some chronic microvascular changes. She was given ASA 325 mg and ativan in the ED with complete resolution of her chest pain. It was noted that she had unsteady gait in the ED but this was also directly after administration of ativan. Admission requested for stroke rule out. PAST MEDICAL HISTORY Diagnosis Date - Benign neoplasm of colon - Chest pain, unspecified - Dermatitis herpetiformis - Diabetes mellitus (HCC) - Esophageal reflux - Hemorrhage of gastrointestinal tract, unspecified - Hypothyroidism - Other specified disease of hair and hair follicles - Pure hypercholesterolemia - Snoring - Unspecified asthma(493.90) - Unspecified constipation - Unspecified essential hypertension PAST SURGICAL HISTORY Procedure Laterality Date - APPENDECTOMY - COLONOS W/REM POLYP SNARE 11/07/12 small polyps asc and hepatic, diverticulosis - moderate - COLONOSCOP W/ OR W/O BRSH SPEC 11/1999 Colonoscopy - COLONOSCOP W/ OR W/O BRSH SPEC 09/20/2007 Colonoscopy - COLONOSCOP W/ OR W/O BRSH SPEC 12/05/2014 Colonoscopy - COLONOSCOP W/ OR W/O BRSH SPEC 10/23/2018 Colonoscopy - DANDC, DIAG AND/OR THERAPEUTIC - EGD W/O BRSH SPECIMEN W/BX 11/07/12 fundic polyps, minimal gastritis - EGD W/O OR W/BRUSH/WASH 10/23/2018 EGD - TOTAL ABDOM HYSTERECTOMY WITH BSO FAMILY HISTORY Problem Relation Age of Onset - Diabetes Mother open heart surgery - Diabetes Father Several SC's - Colon Cancer Father - Colon Cancer Paternal Grandmother - Cancer Paternal Grandfather throat and stomach - Cancer Sister thyroid cancer - other (Multiple Myeloma) Sister Social History Tobacco Use - Smoking status: Never Smoker - Smokeless tobacco: Never Used Substance Use Topics - Alcohol use: No - Drug use: No Medications: Reviewed Allergies: ALLERGIES Allergen Reactions - Citracal [Calcium C* Intolerance constipation - Penicillins Rash - Pravastatin Other: See Comments Achy joints, legs felt "like lead" - Sulfa (Sulfonamide * Rash - Zoloft [Sertraline * Rash Review of Systems: GENERAL: No weight loss, malaise or fevers HEENT: Negative for frequent or significant headaches, No changes in hearing or vision, no nose bleeds or other nasal problems NECK: Negative for lumps, goiter, pain and significant neck swelling RESPIRATORY: Negative for cough, hemoptysis, wheezing, COPD, dyspnea or shortness of breath CARDIOVASCULAR: +Chest pain. No leg swelling or palpitations GI: No abdominal pain, nausea, vomiting, or diarrhea : No history of dysuria, frequency or incontinence MUSCULOSKELETAL: Negative for joint pain or swelling, back pain or muscle pain SKIN: Negative for lesions, rash, and itching PSYCH: +Increased anxiety. +Family stressors. Negative for sleep disturbance. HEMATOLOGY/LYMPHOLOGY: Negative for prolonged bleeding, bruising easily or swollen nodes ENDOCRINE: Negative for cold or heat intolerance, polyuria, polydipsia and goiter NEURO: +Dizziness. No history of headaches, syncope, paralysis, seizures or tremors OBJECTIVE: PHYSICAL EXAM BP 157/73 Pulse 78 Temp (Src) 98.4 (Temporal Artery) Resp 16 Wt 181 lb (82.1kg) SpO2 97% O2 Therapy: Nasal Cannula, Liters: 2 Physical Exam Performed: GENERAL: Alert, no distress, cooperative SKIN: Skin color, texture, turgor normal. No rashes or lesions. HEAD/SINUSES: No significant findings. AT/NC EYES: PERRLA, EOMI OROPHARYNX: Lips, mucosa, and tongue normal. Teeth and gums normal. Oropharynx normal. NECK: No jugulovenous distention, No carotid bruits, Carotid pulse normal contour, Supple LUNGS: Lungs clear to auscultation, Good diaphragmatic excursion. No rales, rhonchi or wheezing. CARDIAC: RRR. Normal S1 and S2; no rubs, murmurs, or gallops ABDOMEN: Abdomen soft, non-tender, non-distended, BS normal, No masses or organomegaly EXTREMITIES: Extremities normal, no deformities, edema, clubbing or skin discoloration. Good capillary refill., No ulcers NEURO: +Gait slightly unsteady with ambulation to the bathroom requiring assist x1. Speech clear, no facial droop. No pronator drift. No dysdiadochokinesia. FNF and heel to briggs without dysmetria. Cranial nerves III-XII intact PULSES: 2+ radial, 2+ dorsalis pedis Lines, Drains, and Airways Line Peripheral 07/25/19 Right Antecubital 20 Gauge 1 day Reviewed lines and needs to be continued: REASONS: Medical therapy Diagnostic tests reviewed: Most recent labs and imaging results Assessment AND Plan Active Hospital Problems as of 07/26/2019 Noted - Resolved Hospital Chest pain 07/26/2019 - Present Current Assessment AND Plan Exertional left sided chest pain x 1 month [place] to possibly be secondary to uncontrolled HTN as improved with addition of metoprolol Negative nuclear stress test on 07/17, scheduled for echo with cardiology next week Reports return of chest pain today in setting of SBP in the 170s Patient also reporting increased anxiety/stress at home as her sister is very ill with recent cancer diagnosis Chest pain completely resolved in the ED after IV ativan HST negative, EKG non ischemic, CTPE negative for PE or dissection Will get echo while in house per prior cards recs Cycle troponin and monitor on telemetry Continue ASA and statin Ataxia 07/26/2019 - Present Current Assessment AND Plan Patient with reported dizziness and unsteady gait x 2 days, feeling like she has to hold onto objects in her home for stability Noted to be very unsteady in ED although patient reports was ambulated immediately after administration of IV ativan CT brain, CTA head/neck negative for acute process No focal deficits on examination, NIH is 0 Suspect may be in setting of uncontrolled HTN and elevated BP, less suspicious for CVA Patient does have risk factors for stroke however with some chronic ischemic changes found on CTA so will obtain MRI to rule out Will place on stroke protocol for now but hold off on neurology consult Check orthostatics Check updated lipid panel and A1c PT/OT Pure hypercholesterolemia 05/14/2005 - Present Current Assessment AND Plan Resume statin Essential hypertension 05/14/2005 - Present Current Assessment AND Plan Allow permissive HTN until negative MRI Class 2 obesity due to excess calories without serious comorbidity with body mass index (BMI) of 37.0 to 37.9 in adult 09/11/2008 - Present Current Assessment AND Plan Counseled on diet and exercise Hypothyroid 05/21/2011 - Present Current Assessment AND Plan TSH 2.18 06/27/19 Resume levothyroxine Diabetes mellitus type 2, uncomplicated (HCC) 07/18/2014 - Present Current Assessment AND Plan A1c 6.9% on 06/27 On metformin at home Hold orals while in house Accuchecks with SSI, CC diet, hypoglycemia protocol Medication and Non-Pharmacologic VTE Prophylaxis/Anticoagulants Anticoagulant AND Antiplatelet Medications (From admission, onward) Start Dose Route Frequency Ordered Stop 07/26/19 0900 aspirin, enteric coated 81 mg tab(s) 81 mg ORAL DAILY 07/26/19 0020 -- 07/26/1929 pneumatic compression stockings (pa,oh) 07/26/1929 pneumatic compression stockings (pa,oh) 07/26/1929 activity - mobilize patient (pa,co) 12/12/19 0030 activity - mobilize patient (pa,co) VTE Prophylaxis: VTE prophylaxis appropriate SIGNATURE: Lynn Keene PA-C PATIENT NAME: Dl Parsons DATE: July 26, 2019 TIME: 3:55 AM PAGER/CONTACT #: [id number] Normal [facility] Hemoglobin A1con 07-26-2019 HbA1c (Bld) [Mass fraction] 154 mg/dL Normal [facility] Comment on above: Result Comment: eAG: (Estimated average glucose) is a calculated value from HgbA1c and is district representative of the average blood glucose level in the last 2-3 month period. Performed By: #### H BA1C ####[place] [id number] [place], [place] [phone] HbA1c (Bld) [Mass fraction] 7.0 % High 4.3-5.6 [facility] Comment on above: Result Comment: [facility] Diabetes Association guidelines indicate that patients with HgbA1c in the range 5.7-6.4% are at increased risk for development of diabetes, and intervention by lifestyle modification may be beneficial. HgbA1c greater or equal to 6.5% is considered diagnostic of diabetes. Performed By: #### H BA1C ####[address] [phone] Lipid Panel, [place] 019 Cholesterol [Mass/Vol] 126 mg/dL Normal <200 [facility] Comment on above: Performed By: #### C BC, BMP, MG1, LIPB ####[facility] [address] [place] [phone] Cholesterol in HDL [Mass/Vol] 53 mg/dL Normal >39 [facility] Comment on above: Performed By: #### C BC, BMP, MG1, LIPB ####[facility] [address] [place] [phone] Cholesterol in LDL [Mass/Vol] 54 mg/dL Normal <100 [facility] Comment on above: Performed By: #### C BC, BMP, MG1, LIPB ####[facility] [address] [place] [address] Fasting Time Unknown Normal [facility] Comment on above: Performed By: #### C BC, BMP, MG1, LIPB ####[facility] [address] [place] [address] LDL:HDL Ratio 1.02 Normal <2.54 [facility] Comment on above: Result Comment: Lisa ramon: 1. National Cholesterol Education Program ATP III Guideline At-A-Glance Quick Desk Reference: National Heart, Lung, and Blood [place]. National Institutes of Health. 2001: NIH Publication No. 01-3305. 2. An International Atherosclerosis Society position paper: global recommendations for the management of dyslipidemia: executive summary, Atherosclerosis. 2014: 232(2):410-413. Performed By: #### C BC, BMP, MG1, LIPB ####[facility] [address] [place] [address] Non HDL Cholesterol 73 mg/dL Normal <130 [facility] Comment on above: Performed By: #### C BC, BMP, MG1, LIPB ####[facility] [address] [place] [address] TC:HDL Ratio 2.38 Normal <5.10 [facility] Comment on above: Performed By: #### C BC, BMP, MG1, LIPB ####[facility] [address] [place] [address] Triglyceride [Mass/Vol] 95 mg/dL Normal <150 [facility] Comment on above: Performed By: #### C BC, BMP, MG1, LIPB ####[facility] [address] [place] [address] VLDL Cholesterol 19 mg/dL Normal <30 [facility] Comment on above: Performed By: #### C BC, BMP, MG1, LIPB ####[facility] [address] [place] [address] MRI BRAIN WO IVCONon -12-2 019 MRI BRAIN WO IVCON * * *Final Report* * * DATE OF EXAM: Jul 26 2019 11:49AM [facility] 0294 - MRI BRAIN WO IVCON / PROCEDURE REASON: Ataxia, stroke suspected * * * * Physician Interpretation * * * * EXAMINATION: MRI BRAIN WO IVCON CLINICAL HISTORY: Dizziness and confusion, prior chest pain. This information is taken directly from the sales order processor system. TECHNIQUE: Routine noncontrast MRI protocol including diffusion images. MQ: [id number] COMPARISON: CT brain and CT angiographic study of neck and head performed yesterday. RESULT: Acute Change: There is no evidence of restricted diffusion to suggest an acute infarct. Hemorrhage: No evidence of prior parenchymal hemorrhage on the gradient echo images. Mass Lesion/ Mass Effect: No evidence of an intracranial mass or extra-axial fluid collection. No significant mass effect. Chronic Change: Scattered patchy areas of increased T2 and FLAIR signal are present in the supratentorial white matter which is a nonspecific finding but likely represents mild chronic microvascular ischemia. Parenchyma: There is mild generalized parenchymal volume loss. Ventricles: Ventriculomegaly corresponds to the degree of parenchymal volume loss. Skull Base: Hypothalamic and pituitary region are grossly normal. Craniocervical junction is normal. No significant marrow replacement process. Vasculature: Major intracranial arterial structures, and dural venous sinuses show typical flow void, suggesting patency by spin echo criteria. Other: Paranasal sinus chambers, mastoid air cells and middle ear cavities are clear. Prior lens replacements. Orbits are unremarkable. IMPRESSION: Mild generalized brain parenchymal volume loss and mild burden of chronic microvascular ischemic disease. No acute abnormalities. Based on the axial T2 flow void pattern, proximal intracranial arterial vasculature, major cortical draining veins, and dural venous sinuses are patent. Rail Operator: PSCB Transcribe Date/Time: Jul 26 2019 11:55A Dictated by : BENI BEDOYA MD This examination was interpreted and the report reviewed and electronically signed by: BENI BEDOYA MD on Jul 26 2019 12:00PM EST [id number] Normal [facility] Magnesiumon 07-26-2019 Magnesium [Mass/Vol] 1.8 mg/dL Normal 1.7-2.3 [facility] Comment on above: Performed By: #### C BC, BMP, MG1, LIPB ####[facility] [address] [place], [place] [phone] NURSING PROGon 07-26-2019 NURSING PROG HNO ID: [id number] Author: Ella (Rn) NATALIA Matamoros Service: ? Author Type: Registered Nurse Type: Nursing Progress Note Filed: 07/26/2019 3:57 PM Note Text: Nursing Progress Note Patient Name: Dl Parsons Patient Location: [place] [id number] Daily Note: 0720- report received from night RN. Pt up in bed. No new needs at this time. Will continue to monitor. SR on tele. 0800- neuro check completed and assessment completed. Neuro checks negative except for a slight facial droop. Pt states that she has not noticed this before. 1000- neuro check completed. No new needs ta this time. Neuro negative except for slight facial droop as noticed before. 1130- pt down at MRI 1300- Dr. Lei at bedside. Will plan for d/c today. 1400- PT in to work with pt 1500- pt taken elda to cardiology for echo. 1600- d/c instructions went over with pt and spouse. This note was completed by: Ella Matamoros RN [facility] NURSING PROG HNO ID: [id number] Author: Corry (Rn) NATALIA Pabon Service: Nursing Author Type: Registered Nurse Type: Nursing Progress Note Filed: 07/26/2019 6:29 AM Note Text: Nursing Progress Note Patient Name: Dl Parsons [id number] 2300: Pt arrived to floor at this time. Assessment complete as well as NIH. Oriented to room and call light system. Stroke binder given to pt and educated pt on information. Bed alarm on. 0100: Neuro complete. No issues noted. NSR on tele. 0300: Neuro completed. No changes. NSR on tele. Will continue to monitor. 0500: Neuro complete. No complaints at this time. NSR on tele. This note was completed by: Corry Pabon RN [facility] PLAN OF CAREon 07-26-2019 PLAN OF CARE HNO ID: [id number] Author: Mita Workman (Supervisor Cd Area) Service: Pharmacy Author Type: ? 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 Patient to use [facility] Bedside Delivery - N/A Insurance Information as follows: 2. Insurance card on file - N/A 3. Credit card for payment - N/A Patient has no new home going medications. [facility] THERAPY NTon 07-26-2019 THERAPY NT HNO ID: [id number] Author: Marium (Ot) Tj Service: Occupational Therapy Author Type: Occupational Therapist Type: Therapy (PT/OT/Speech/Resp) Filed: 07/26/2019 3:48 PM Note Text: Occupational Therapy Evaluation SERVICE DATE: 07/26/2019 SERVICE TIME: 1505 to 1530 ROOM: [place] [address] Recommended Discharge Disposition: Home Recommended Discharge Disposition Comments: with 24 hr assist from spouse initially for optimal safety Anticipated Discharge Needs: Physical Assist at Home Physical Assist at Home for: Cleaning;Laundry;Meals;Self Care OT Recommendations to Nursing: To Bathroom for ADL?s /and or Toileting;OOB for meals;With assist of 1 person(during hospital stay for optimal safety) Equipment: (gait belt) OT 6 Clicks Score: 24 ASSESSMENT: Pt is at SBA level for ADLS and functional mobility. Anticipate pt is near functional baseline. Patient does have impaired functional mobility, however reports chronic curvature of the spine. No skilled OT needs identified at this time. Patient Disposition at Start of Session: Sitting on Edge of Bed;Family Present Patient Disposition at End of Session: Call Ac in Reach;Family Present(sitting edge of bed) Tolerated Full Session Patient /Caregiver Goals: Go Home Goals for Plan of Care: PLAN: Treatment Frequency (times per week): Discontinue Therapy Services Reasons Therapy Services Discontinued: No skilled needs Plan of Care developed with: Patient;Caregiver TREATMENT INTERVENTIONS: Therapy Diagnosis: Decreased activities of daily living (ADL) Interventions Provided: Evaluation $ Evaluation-Low (15262) Billed Units: 1 unit Total Treatment Time (minutes): 25 SUBJECTIVE: Current Hospital Course: Chart reviewed; ; Reason for Occupational Therapy Consult: Pt is a 74 year old female admitted 07/25/19 with chest pain and trouble walking. OT evaluation for safety assessment. Relevant Past Medical History: sleep apnea, osteopenia, asthma, HLD, HTN Patient Report: : "I just want to go home to my dogs" Home Environment Patient Lives With: Spouse Assistance Available: 24 Hour Entry To Home: Stairs;With Rail;Ramp(ramp in back) Number Of Stairs Into Home: 3 Number Of Stairs To Bed/Bath: 0 Tub/Shower Type: tub shower Laundry: basement, spouse completes Equipment Owned: Cane;Commode-Raised;Grab Bars-Shower;Grab Bars-Toilet;Hand Held Shower;Wheeled Walker;Adult Care Manager;Rollator;Showe r Chair(quad cane) Prior Functional Level: Within Functional Limits Prior Functional Level Comments: Pt reports independence with ADLs, no use of AD, + driving, denies falls in last 6 months OBJECTIVE: Cognition/Communication Deficits Orientation Deficits: (alert and oriented x3) CURRENT FUNCTIONAL STATUS: Current Activities of Daily Living Assist Level Feeding Independent Grooming Stand By Assistance(for safety in standing) Bathing Upper Body Supervision(per clinical judgment) Bathing Lower Body Stand By Assistance(for safety in standing, per clinical judgment) Dressing Upper Body Supervision(per clinical judgment) Dressing Lower Body Stand By Assistance(pt able to don pants, socks, shoes) Toileting Stand By Assistance(pt able to manage clothing and hygiene) Functional Mobility Assist Level Rolling Supine to Sit Sit to Supine Scooting Sit to Stand Stand By Assistance Stand to Sit Stand By Assistance Bed to Chair Toilet/Commode Stand By Assistance Functional Mobility Contact Guard Assistance Hand Held Assist Please see discipline specific clinical documentation flowsheet for complete details for this therapy evaluation/treatment. SIGNATURE: KRSITEN Celaya/Suresh PATIENT NAME: lD Parsons DATE: July 26, 2019 TIME: 3:45 PM [facility] THERAPY NT HNO ID: [id number] Author: Tory MckayPtHa Fowler Service: Physical Therapy Author Type: Physical Therapist Type: Therapy (PT/OT/Speech/Resp) Filed: 07/26/2019 5:16 PM Note Text: Physical Therapy Evaluation SERVICE DATE: 07/26/2019 SERVICE TIME: 9377 to 1420 ROOM: [place] [address] Recommended Discharge Disposition: Home PT Recommended Discharge Disposition Comments: Pt woudl benefit from continued PT to address strength and balance deficits. Anticipated Discharge Needs: Physical Assist at Home Physical Assist at Home for: Cleaning;Laundry;Meals;Self Care Recommended Discharge Equipment: Wheeled Walker(pt owns) PT Recommendations to Nursing: Ambulate with device;To bathroom;In halls Device: Wheeled Walker PT 6 Clicks Score: 22 ASSESSMENT : Patient presents with decreased balance, strength and activity tolerance per reported baseline but functioning close to baseline. Pt is CGA to sBA with activity, currently utilizing walker due to feelings of instability without support. Pt participates without adverse effects, initial complaints of dizziness post pursed lip breathing but subsides and vitals remain stable. Pt would benefit from continued PT post acute stay to address deficits for return to OF. Patient Disposition at Start of Session: Supine in Bed Patient Disposition at End of Session: Supine in Bed;Call Ac in Reach;Family Present Tolerated Full Session Physical Therapy Problem List: Decreased Activity Tolerance;Decreased Strength;Balance Impaired Patient /Caregiver Goals: Go Home Goals for Plan of Care: Transfer supine to/from sit with: Stand By Assistance Transfer sit to/from stand with: Stand By Assistance(LRAD if needed) Ambulate with: Stand By Assistance Distance: 75-100 Device: (LRAD if needed) Goal: Pt to verbalize understanding of education provided for increased safety upon return home. Progress Toward Goals: Progressing as expected(goals met or met per clinical judgement) Rehab Potential: (N/A) PLAN: Treatment Frequency (times per week): 3 Current admission Treatment Interventions: Education;Joint Mobility;Strengthening;Functi onal Mobility Training;Balance Training Plan of Care developed with: Patient TREATMENT INTERVENTIONS: Therapy Diagnosis: Muscle Weakness (generalized) Interventions Provided: Evaluation;Therapeutic Activity (56152) $ Evaluation-Low (79447) Billed Units: 1 unit Therapeutic Activity (09641) Treatment Minutes: 12 1 unit Skilled Intervention(s): Instructed patient in supine to sit pushing with upper extremities to sit up with assist for trunk and LE management, cues for effective use of UEs for assist Instructed patient in sit to supine using safe, effective technique Instruction in sit to stand technique with proper hand placement and body positioning at edge of bed/chair, cues for increased anterior weight shifting Instruction in stand to sit technique with lower extremities touching chair/bed and reaching back for surface Cues for improved posture, increased use of UEs for assist to maintain standing balance Education: Pt educated in role of PT during acute stay and PT POC, importance of OOB activity with nursing to reduce risk of functional decline, rationale for discharge recommendation of home PT, use of call light 100% of the time for assist, parameters for safe home going, rationale for initial use of walker for safe ambulation Total Timed Code Treatment Minutes: 12 Total Treatment Time (minutes): 23 SUBJECTIVE: Current Hospital Course: Chart reviewed; Pt is a 74 year old female admitted 07/25/19 with chest pain and trouble walking. Reason for Physical Therapy Consult : Safety assessment Relevant Past Medical History: sleep apnea, osteopenia, asthma, HLD, HTN Patient Report: Pt agreeable to PT, ok per nursing to treat. Home Environment Patient Lives With: Spouse Assistance Available: 24 Hour Entry To Home: Stairs;With Rail;Ramp(ramp in back) Number Of Stairs Into Home: 3 Number Of Stairs To Bed/Bath: 0 Tub/Shower Type: tub shower Laundry: basement, spouse completes Equipment Owned: Cane;Commode-Raised;Grab Bars-Shower;Grab Bars-Toilet;Hand Held Shower;Wheeled Walker;Adult Care Manager;Rollator;Showe r Chair;Lift Chair(quad cane) Prior Functional Level: Within Functional Limits Prior Functional Level Comments: Pt reports independence with ADLs, no use of AD, + driving, denies falls in last 6 months, sleeps in lift chair OBJECTIVE: Range of Motion: WFL Strength: Strength Limitation Comments Strength Limitation Comments: B hip flexion 4-/5, knees and ankles 4/5 CURRENT FUNCTIONAL STATUS: Current Functional Mobility Assist Level Additional Information Rolling Supine to Sit Stand By Assistance HOB elevated, use of bed rails Sit to Supine Stand By Assistance Scooting Stand By Assistance Sit to Stand Stand By Assistance X 2 trials Stand to Sit Stand By Assistance Bed to Chair Toilet/Commode Gait Contact Guard Assistance Gait Device: Wheeled Walker Gait Distance (feet): 70 Reciprocating pattern Stairs (pt declined, will use ramp) Curb Step Car Transfer General Gait Deviations: Lateral sway increased;Step length decreased -Patient I bed post-treatment, call ac and personal belongings in reach, RN notified of patient status, denies needs at this time. -Gait belt in place for safety with all functional mobility - Balance: Static Sitting;Dynamic Sitting;Static Standing;Dynamic Standing Static Sitting Balance: Good- / Fair+ Accepts minimal resistance Dynamic Sitting Balance: Good-/Fair+ Able to sit unsupported AND weight shift across midline minimally Static Standing Balance: Fair Able to stand unsupported without UE support and without LOB for 1 - 2 min Dynamic Standing Balance: Fair Stand independently unsupported, weight shift, and reach ipsilaterally, LOB when crossing midline JH-HLM: 7: Walk 25 feet or more Please see discipline specific clinical documentation flowsheet for complete details for this therapy evaluation/treatment. SIGNATURE: Tory Fowler PT PATIENT NAME: Dl Parsons DATE: July 26, 2019 TIME: 2:30 PM [facility] Troponin Ton 07-26-2019 Troponin T.cardiac [Mass/Vol] ug/L Normal 0.000-0.[address] [place] [address] Comment on above: Performed By: #### T NT ####[facility] [address] [place] [address] Troponin T.cardiac [Mass/Vol] ug/L Normal 0.000-0.[address] [place] [address] Comment on above: Performed By: #### T NT ####[facility] [address] HEALTHon 07-25-2019 ALLIED HEALTH HNO ID: [id number] Author: MABLE Gentile (Ct) Service: Radiology Author Type: Clinical Re Dye Hand Type: Allied Health Filed: 07/25/2019 7:19 PM Note Text: Radiology Service Progress Note PATIENT NAME: Dl Parsons DATE OF SERVICE: July 25, 2019 TIME: 7:19 PM PATIENT IDENTITY VERIFICATION COMPLETED USING TWO (2) IDENTIFIERS: Name and Date of confirmed by patient verbally. PATIENT GENDER DATA: Female. status: : No status: NO. PATIENT RELEVANT IMPLANT DATA REVIEWED: Yes RADIOLOGY DEPARTMENT: General X-ray: Exam(s) Completed: Chest X-Ray PERIPHERAL IV DATA: Not applicable SIGNED BY: MABLE Gentile July 25, 2019 7:19 PM [facility] APTTon 07-25-2019 aPTT Coag (Bld) [Time] 26.2 s Normal 23.0-32.4 [facility] Comment on above: Result Comment: Unfr actionated Heparin Therapeutic Ranges: Standard Heparin Nomogram: 53 to 78 seconds (anti-Xa level of 0.3 to 0.7 U/ml) Low Dose/ACS Nomogram: 49 to 67 seconds (anti-Xa level of 0.2 to 0.5 U/ml) Stroke Treatment Nomogram: 49 to 67 seconds (anti-Xa level of 0.2 to 0.5 U/ml) Note: The APTT therapeutic range has been determined for the current lot of laboratory APTT reagent in use throughout the [facility]. Performed By: #### C BCDIF, PT, PTT, CMP, MG1 #### [facility] [address] [place] [address] CBC and Differentialon 07-25 Abs Baso 0.06 k/uL Normal <0.11 [facility] Comment on above: Performed By: #### C BCDIF, PT, PTT, CMP, MG1 #### [facility] [address] [place] [address] Abs [place] 0.90 k/uL High <0.87 [facility] Comment on above: Performed By: #### C BCDIF, PT, PTT, CMP, MG1 #### [facility] [address] [place] [address] Abs Neut 7.91 k/uL High 1.45-7.50 [facility] Comment on above: Performed By: #### C BCDIF, PT, PTT, CMP, MG1 #### [facility] [address] [place], [place] [id number] Basophils/100 WBC (Bld) 0.5 % Normal [facility] Comment on above: Performed By: #### C BCDIF, PT, PTT, CMP, MG1 #### [facility] [address] [place] [address] Eosinophils (Bld) [#/Vol] 0.31 10*3/uL Normal <0.46 [facility] Comment on above: Performed By: #### C BCDIF, PT, PTT, CMP, MG1 #### [facility] [address] [place] [address] Eosinophils/100 WBC (Bld) 2.6 % Normal [facility] Comment on above: Performed By: #### C BCDIF, PT, PTT, CMP, MG1 #### [facility] [address] [place] [address] Erythrocyte distribution width (RBC) [Ratio] 14.9 % Normal 11.5-15.0 [facility] Comment on above: Performed By: #### C BCDIF, PT, PTT, CMP, MG1 #### [facility] [address] [place] [address] Hematocrit (Bld) [Volume fraction] 41.5 % Normal 36.0-46.0 [facility] Comment on above: Performed By: #### C BCDIF, PT, PTT, CMP, MG1 #### [facility] [address] [place] [address] Hemoglobin (Bld) [Mass/Vol] 13.5 g/dL Normal 11.5-15.5 [facility] Comment on above: Performed By: #### C BCDIF, PT, PTT, CMP, MG1 #### [facility] [address] [place] [address] Lymphocytes (Bld) [#/Vol] 2.56 10*3/uL Normal 1.00-4.00 [facility] Comment on above: Performed By: #### C BCDIF, PT, PTT, CMP, MG1 #### [facility] [address] [place] [address] Lymphocytes/100 WBC (Bld) 21.8 % Normal [facility] Comment on above: Performed By: #### C BCDIF, PT, PTT, CMP, MG1 #### [facility] [address] [place] [address] MCH (RBC) [Entitic mass] 26.7 pG Normal 26.0-34.0 [facility] Comment on above: Performed By: #### C BCDIF, PT, PTT, CMP, MG1 #### [facility] [address] [place] [address] MCHC (RBC) [Mass/Vol] 32.5 g/dL Normal 30.5-36.0 [facility] Comment on above: Performed By: #### C BCDIF, PT, PTT, CMP, MG1 #### [facility] [address] [address] MCV (RBC) [Entitic vol] 82.2 fL Normal 80.0-100.0 [facility] Comment on above: Performed By: #### C BCDIF, PT, PTT, CMP, MG1 #### [facility] [address] [address] Monocytes/100 WBC (Bld) 7.7 % Normal [facility] Comment on above: Performed By: #### C BCDIF, PT, PTT, CMP, MG1 #### [facility] [address] [address] Neutrophils/100 WBC (Bld) 67.4 % Normal [facility] Comment on above: Performed By: #### C BCDIF, PT, PTT, CMP, MG1 #### [facility] [address] [address] Platelet mean volume (Bld) [Entitic vol] 9.5 fL Normal 9.0-12.7 [facility] Comment on above: Performed By: #### C BCDIF, PT, PTT, CMP, MG1 #### [facility] [address] [place] [address] Platelets (Bld) [#/Vol] 473 10*3/uL High 150-400 [facility] Comment on above: Performed By: #### C BCDIF, PT, PTT, CMP, MG1 #### [facility] [address] [address] RBC (Bld) [#/Vol] 5.05 10*6/uL Normal 3.90-5.20 [facility] Comment on above: Performed By: #### C BCDIF, PT, PTT, CMP, MG1 #### [facility] [address] WBC (Bld) [#/Vol] 11.74 10*3/uL High 3.70-11.00 [facility] Comment on above: Performed By: #### C BCDIF, PT, PTT, CMP, MG1 #### [facility] [address] [address] [address] BRAIN WO IVCONon 07-25-[address] BRAIN WO IVCON * * *Final Report* * * DATE OF EXAM: Jul 25 2019 8:15PM [facility] 0504 - CT BRAIN WO IVCON / PROCEDURE REASON: Ataxia, stroke suspected * * * * Physician Interpretation * * * * CTA HEAD W IVCON, CTA NECK W IVCON, CT BRAIN WO IVCON HISTORY: Focal neuro deficit, new, fixed, or worsening, > 24 hours, stroke suspected. Dizziness. COMPARISON: None. TECHNIQUE: Routine CT of the brain without IV contrast. Next, spiral high resolution axial images were obtained through the head, neck and superior mediastinum following bolus administration of intravenous contrast for CT angiography. 3D and maximum intensity projection images were created, reviewed and archived on the imaging workstation under physician supervision. MQ: CTABNPlus_3 CT Contrast: Omnipaque 350 CT Contrast Volume (ml): 100 CT Contrast Route of Administration: IV Dose-Length Product (DLP): 1350 mGy*cm. CT Dose Reduction Employed: Automated exposure control (AEC) RESULT: CT BRAIN: Acute change: No evidence of an acute infarct or other acute parenchymal process. ASPECT Score = 10 Hemorrhage: No evidence of acute intracranial hemorrhage. ECASS hemorrhagic transformation score: Not Applicable Mass Effect / Mass Lesion: There is no evidence of an intracranial mass or extraaxial fluid collection. No significant mass effect. Chronic change: Scattered patchy foci of low attenuation are present within supratentorial white matter which is a nonspecific finding but likely represents mild microvascular ischemia. Parenchyma: There is no significant volume loss. The brain parenchyma is otherwise within normal limits for age. Ventricles: The ventricles are within normal limits of size and configuration for age. Other: The visualized paranasal sinuses are grossly clear. The skull and visualized extracranial soft tissues are grossly normal. CT NECK: Soft tissues: Nonspecific coarse calcification in the thyroid gland, without a definite soft tissue mass. Spine: Alignment is normal. Mild degenerative changes are present. Lung apices: The visualized lung apices are clear. CTA NECK: Aortic Arch: There is a normal branching pattern from the aortic arch.. There is no significant stenosis in the proximal brachiocephalic vessels. Carotid arteries: Right Common: No significant stenosis. Right Internal Carotid Plaque: No significant plaque formation. Right Internal Carotid Stenosis (% by NASCET Criteria): 0 Left Common: No significant stenosis. Left Internal Carotid Plaque: No significant plaque formation. Left Internal Carotid Stenosis (% by NASCET Criteria): 0 Cervical Vertebral Arteries: Patency: Bilateral Dominance: Codominant CTA HEAD: Acute Stroke on CTA: Evaluation of the individual slices of the CTA demonstrates no evidence of an acute stroke. Spot Sign Presence: Not Applicable Spot Sign Number: Not Applicable Anterior Circulation: The internal carotid arteries, anterior cerebral arteries, and middle cerebral arteries are patent. There is no evidence of significant stenosis or arterial occlusion. There is no evidence of aneurysm or vascular malformation. Vertebrobasilar Circulation: The bilateral vertebral arteries, basilar artery and branches and posterior cerebral arteries are patent. There is no evidence of significant stenosis or arterial occlusion. There is no evidence of aneurysm or vascular malformation. IMPRESSION: No CT evidence of acute intracranial process. Patchy white matter hypoattenuation likely representing chronic microvascular ischemic changes. No evidence of intracranial or extracranial arterial large vessel occlusion or significant stenosis. Rail Operator: ESTRELLITA Transcribe Date/Time: Jul 25 2019 8:16P Dictated by : FEDERICO RODRIGUEZ MD This examination was interpreted and the report reviewed and electronically signed by: FEDERICO RODRIGUEZ MD on Jul 25 2019 8:21PM EST [id number] [facility] CT CHEST W IVCONon 9 CT CHEST W IVCON * * *Final Report* * * DATE OF EXAM: Jul 25 2019 8:15PM [facility] 0539 - CT CHEST W IVCON / PROCEDURE REASON: Aortic disease, nontraumatic * * * * Physician Interpretation * * * * EXAMINATION: CHEST CT WITH CONTRAST CLINICAL HISTORY: Aortic disease, nontraumatic Technique: Spiral CT acquisition of the chest from the thoracic inlet to the upper abdomen following IV contrast. MQ: CTCWR_5 Contrast: 100 mL Omnipaque [address] Dose-Length Product: 1350 mGy*cm CT Dose Reduction Employed: Automated exposure control (AEC) Comparison: Portable chest 07/25/2019, CT of the sternoclavicular joints 12/25/2018 RESULT: Limitations: None. Lines, tubes, and devices: None. Lung parenchyma and pleura: Mild lingular and right lower lobe atelectasis/scar. No consolidation. No suspicious pulmonary nodule. No pleural effusion. Central airways are patent. Thoracic inlet, heart, and mediastinum: Calcifications within the left thyroid lobe, unchanged. No axillary, hilar or mediastinal lymphadenopathy. There are mild atherosclerotic calcifications in aorta. No aortic aneurysm or dissection. No aortic penetrating ulceration. Great vessels are unremarkable. No central pulmonary emboli. There is dilatation of the main pulmonary artery measuring up to 3.5 cm suggesting pulmonary hypertension. Cardiac size is normal. No pericardial effusion. Mild coronary artery calcifications. Bones and soft tissues: Scoliosis and degenerative change. No destructive bone lesion. Chest wall is unremarkable. Upper abdomen: Small hiatal hernia. IMPRESSION: No CT evidence of acute abnormality. Prominent main pulmonary artery suggesting pulmonary artery hypertension. Rail Operator: PSCB Transcribe Date/Time: Jul 25 2019 8:20P Dictated by : ANNE NATHAN MD This examination was interpreted and the report reviewed and electronically signed by: ANNE NATHAN MD on Jul 25 2019 8:24PM EST [id number] [facility] CTA HEAD W IVCONon 9 CTA HEAD W IVCON * * *Final Report* * * DATE OF EXAM: Jul 25 2019 8:15PM [facility] [place] [facility] 0022 - CTA HEAD W IVCON / PROCEDURE REASON: Focal neuro deficit, new, fixed, or worsening, > 24 hours, stroke suspected * * * * Physician Interpretation * * * * CTA HEAD W IVCON, CTA NECK W IVCON, CT BRAIN WO IVCON HISTORY: Focal neuro deficit, new, fixed, or worsening, > 24 hours, stroke suspected. Dizziness. COMPARISON: None. TECHNIQUE: Routine CT of the brain without IV contrast. Next, spiral high resolution axial images were obtained through the head, neck and superior mediastinum following bolus administration of intravenous contrast for CT angiography. 3D and maximum intensity projection images were created, reviewed and archived on the imaging workstation under physician supervision. MQ: CTABNPlus_3 CT Contrast: Omnipaque 350 CT Contrast Volume (ml): 100 CT Contrast Route of Administration: IV Dose-Length Product (DLP): 1350 mGy*cm. CT Dose Reduction Employed: Automated exposure control (AEC) RESULT: CT BRAIN: Acute change: No evidence of an acute infarct or other acute parenchymal process. ASPECT Score = 10 Hemorrhage: No evidence of acute intracranial hemorrhage. ECASS hemorrhagic transformation score: Not Applicable Mass Effect / Mass Lesion: There is no evidence of an intracranial mass or extraaxial fluid collection. No significant mass effect. Chronic change: Scattered patchy foci of low attenuation are present within supratentorial white matter which is a nonspecific finding but likely represents mild microvascular ischemia. Parenchyma: There is no significant volume loss. The brain parenchyma is otherwise within normal limits for age. Ventricles: The ventricles are within normal limits of size and configuration for age. Other: The visualized paranasal sinuses are grossly clear. The skull and visualized extracranial soft tissues are grossly normal. CT NECK: Soft tissues: Nonspecific coarse calcification in the thyroid gland, without a definite soft tissue mass. Spine: Alignment is normal. Mild degenerative changes are present. Lung apices: The visualized lung apices are clear. CTA NECK: Aortic Arch: There is a normal branching pattern from the aortic arch.. There is no significant stenosis in the proximal brachiocephalic vessels. Carotid arteries: Right Common: No significant stenosis. Right Internal Carotid Plaque: No significant plaque formation. Right Internal Carotid Stenosis (% by NASCET Criteria): 0 Left Common: No significant stenosis. Left Internal Carotid Plaque: No significant plaque formation. Left Internal Carotid Stenosis (% by NASCET Criteria): 0 Cervical Vertebral Arteries: Patency: Bilateral Dominance: Codominant CTA HEAD: Acute Stroke on CTA: Evaluation of the individual slices of the CTA demonstrates no evidence of an acute stroke. Spot Sign Presence: Not Applicable Spot Sign Number: Not Applicable Anterior Circulation: The internal carotid arteries, anterior cerebral arteries, and middle cerebral arteries are patent. There is no evidence of significant stenosis or arterial occlusion. There is no evidence of aneurysm or vascular malformation. Vertebrobasilar Circulation: The bilateral vertebral arteries, basilar artery and branches and posterior cerebral arteries are patent. There is no evidence of significant stenosis or arterial occlusion. There is no evidence of aneurysm or vascular malformation. IMPRESSION: No CT evidence of acute intracranial process. Patchy white matter hypoattenuation likely representing chronic microvascular ischemic changes. No evidence of intracranial or extracranial arterial large vessel occlusion or significant stenosis. Rail Operator: ESTRELLITA Transcribe Date/Time: Jul 25 2019 8:16P Dictated by : FEDERICO RODRIGUEZ MD This examination was interpreted and the report reviewed and electronically signed by: FEDERICO RODRIGUEZ MD on Jul 25 2019 8:21PM EST [id number] [facility] CTA NECK W IVCONon 9 CTA NECK W IVCON * * *Final Report* * * DATE OF EXAM: Jul 25 2019 8:15PM [facility] 0024 - CTA NECK W IVCON / PROCEDURE REASON: Focal neuro deficit, new, fixed, or worsening, > 24 hours, stroke suspected * * * * Physician Interpretation * * * * CTA HEAD W IVCON, CTA NECK W IVCON, CT BRAIN WO IVCON HISTORY: Focal neuro deficit, new, fixed, or worsening, > 24 hours, stroke suspected. Dizziness. COMPARISON: None. TECHNIQUE: Routine CT of the brain without IV contrast. Next, spiral high resolution axial images were obtained through the head, neck and superior mediastinum following bolus administration of intravenous contrast for CT angiography. 3D and maximum intensity projection images were created, reviewed and archived on the imaging workstation under physician supervision. MQ: CTABNPlus_3 CT Contrast: Omnipaque 350 CT Contrast Volume (ml): 100 CT Contrast Route of Administration: IV Dose-Length Product (DLP): 1350 mGy*cm. CT Dose Reduction Employed: Automated exposure control (AEC) RESULT: CT BRAIN: Acute change: No evidence of an acute infarct or other acute parenchymal process. ASPECT Score = 10 Hemorrhage: No evidence of acute intracranial hemorrhage. ECASS hemorrhagic transformation score: Not Applicable Mass Effect / Mass Lesion: There is no evidence of an intracranial mass or extraaxial fluid collection. No significant mass effect. Chronic change: Scattered patchy foci of low attenuation are present within supratentorial white matter which is a nonspecific finding but likely represents mild microvascular ischemia. Parenchyma: There is no significant volume loss. The brain parenchyma is otherwise within normal limits for age. Ventricles: The ventricles are within normal limits of size and configuration for age. Other: The visualized paranasal sinuses are grossly clear. The skull and visualized extracranial soft tissues are grossly normal. CT NECK: Soft tissues: Nonspecific coarse calcification in the thyroid gland, without a definite soft tissue mass. Spine: Alignment is normal. Mild degenerative changes are present. Lung apices: The visualized lung apices are clear. CTA NECK: Aortic Arch: There is a normal branching pattern from the aortic arch.. There is no significant stenosis in the proximal brachiocephalic vessels. Carotid arteries: Right Common: No significant stenosis. Right Internal Carotid Plaque: No significant plaque formation. Right Internal Carotid Stenosis (% by NASCET Criteria): 0 Left Common: No significant stenosis. Left Internal Carotid Plaque: No significant plaque formation. Left Internal Carotid Stenosis (% by NASCET Criteria): 0 Cervical Vertebral Arteries: Patency: Bilateral Dominance: Codominant CTA HEAD: Acute Stroke on CTA: Evaluation of the individual slices of the CTA demonstrates no evidence of an acute stroke. Spot Sign Presence: Not Applicable Spot Sign Number: Not Applicable Anterior Circulation: The internal carotid arteries, anterior cerebral arteries, and middle cerebral arteries are patent. There is no evidence of significant stenosis or arterial occlusion. There is no evidence of aneurysm or vascular malformation. Vertebrobasilar Circulation: The bilateral vertebral arteries, basilar artery and branches and posterior cerebral arteries are patent. There is no evidence of significant stenosis or arterial occlusion. There is no evidence of aneurysm or vascular malformation. IMPRESSION: No CT evidence of acute intracranial process. Patchy white matter hypoattenuation likely representing chronic microvascular ischemic changes. No evidence of intracranial or extracranial arterial large vessel occlusion or significant stenosis. Rail Operator: ESTRELLITA Transcribe Date/Time: Jul 25 2019 8:16P Dictated by : FEDERICO RODRIGUEZ MD This examination was interpreted and the report reviewed and electronically signed by: FEDERICO RODRIGUEZ MD on Jul 25 2019 8:21PM EST [id number] Normal [facility] Comp Metabolic Panelon 07-25 Albumin [Mass/Vol] 4.5 g/dL Normal 3.9-4.9 [facility] Comment on above: Performed By: #### C BCDIF, PT, PTT, CMP, MG1 ####[facility] [address] ALP [Catalytic activity/Vol] 89 U/L Normal 34-123 [facility] Comment on above: Performed By: #### C BCDIF, PT, PTT, CMP, MG1 ####[facility] [address] ALT [Catalytic activity/Vol] 14 U/L Normal 7-38 [facility] Comment on above: Performed By: #### C BCDIF, PT, PTT, CMP, MG1 ####[facility] [address]721[address] Anion gap [Moles/Vol] 14 mmol/L Normal 9-18 [facility] Comment on above: Performed By: #### C BCDIF, PT, PTT, CMP, MG1 ####[facility] [address] [address] AST [Catalytic activity/Vol] 15 U/L Normal 13-35 [facility] Comment on above: Performed By: #### C BCDIF, PT, PTT, CMP, MG1 ####[facility] [address] [address] Bilirubin [Mass/Vol] 0.6 mg/dL Normal 0.2-1.3 [facility] Comment on above: Performed By: #### C BCDIF, PT, PTT, CMP, MG1 ####[facility] [address] [address] Calcium [Mass/Vol] 10.5 mg/dL High 8.5-10.2 [facility] Comment on above: Performed By: #### C BCDIF, PT, PTT, CMP, MG1 ####[facility] [address] [place] [address] Chloride [Moles/Vol] 93 mmol/L Low 97-105 [facility] Comment on above: Performed By: #### C BCDIF, PT, PTT, CMP, MG1 ####[facility] [address] [address] CO2 [Moles/Vol] 29 mmol/L Normal 22-30 [facility] Comment on above: Performed By: #### C BCDIF, PT, PTT, CMP, MG1 ####[facility] [address] [place] [address] Creatinine [Mass/Vol] 0.71 mg/dL Normal 0.58-0.96 [facility] Comment on above: Performed By: #### C BCDIF, PT, PTT, CMP, MG1 ####[facility] [address] [place] [id number] eGFR- Amer. >60 Normal [facility] Comment on above: Performed By: #### C BCDIF, PT, PTT, CMP, MG1 ####[facility] [address] GFR/1.73 sq M predicted among non-blacks MDRD (S/P/Bld) [Vol rate/Area] mL/min/{1.73_m2} Normal [facility] Comment on above: Result Comment: eGFR (Estimated GFR) Units of measure: mL/min/1.73 meters squared eGFR is derived from the reexpressed MDRD Study equation using the following parameters: serum creatinine, age, gender and race. The creatinine assay has been calibrated to be traceable to IDMS. An eGFR <60 mL/min/1.73m2 for >3 months is consistent with chronic kidney disease. Refer to KDOQI guidelines for clinical interpretation. In patients with unstable renal function, e.g. those with acute kidney injury, the eGFR may not accurately reflect actual GFR. Performed By: #### C BCDIF, PT, PTT, CMP, MG1 ####[facility] [address] [phone] Glucose [Mass/Vol] 141 mg/dL High 74-99 [facility] Comment on above: Result Comment: The [place] [employer] (ADA) provides guidance for cutoff values for fasting glucose and random glucose. The ADA defines fasting as no caloric intake for at least 8 hours. Fasting plasma glucose results between 100 to 125 mg/dL indicate increased risk for diabetes (prediabetes). Fasting plasma glucose results greater than or equal to 126 mg/dL meet the criteria for diagnosis of diabetes. In the absence of unequivocal hyperglycemia, results should be confirmed by repeat testing. In a patient with classic symptoms of hyperglycemia or hyperglycemic crisis, random plasma glucose results greater than or equal to 200 mg/dL meet the criteria for diagnosis of diabetes. Reference: Standards of Medical Care in Diabetes 2016, [place] [employer]. Diabetes Care. 2016.39(Suppl 1). Performed By: #### C BCDIF, PT, PTT, CMP, MG1 ####[facility] [address]73 [phone] Potassium [Moles/Vol] 3.9 mmol/L Normal 3.7-5.1 [facility] Comment on above: Performed By: #### C BCDIF, PT, PTT, CMP, MG1 ####[facility] [address]8528 [phone] Protein [Mass/Vol] 7.8 g/dL Normal 6.3-8.0 [facility] Comment on above: Performed By: #### C BCDIF, PT, PTT, CMP, MG1 ####[facility] [address] [place] [phone] Sodium [Moles/Vol] 136 mmol/L Normal 136-144 [facility] Comment on above: Performed By: #### C BCDIF, PT, PTT, CMP, MG1 ####[facility] [address] [place] [phone] Urea nitrogen [Mass/Vol] 11 mg/dL Normal 7-21 [facility] Comment on above: Performed By: #### C BCDIF, PT, PTT, CMP, MG1 ####[facility] [address] [place] [phone] ECG COMPLETEon 07-25-2019 ECG COMPLETE NAME : KEM PARSONS PID : [id number] : 1945 Gender : Female Race : ORD : [id number] Procedure Date : Jul 25 2019 18:57:35 Edit Date : Jul 26 2019 08:33:08 Diagnosis:NORMAL SINUS RHYTHM LEFT ANTERIOR FASCICULAR BLOCK SEPTAL INFARCT , AGE UNDETERMINED POSSIBLE LATERAL INFARCT , AGE UNDETERMINED ABNORMAL ECG no STEMI Confirmed by MD DIOGENES, TINY.S ([id number]), food editor ABY LUNDBERG ([id number]) on 07/26/2019 8:33:07 AM Ventricular Rate : 98 BPM Atrial Rate : 98 BPM P-R Interval : 172 ms QRS Duration : 82 ms Q-T Interval : 368 ms QTC Calculation(Bazett) : 469 ms P Cream Ridge : 49 degrees R Cream Ridge : -52 degrees T Cream Ridge : 53 degrees Test Reason : Chest Pain Location : 1 : ER 03 Overread By : MD DIOGENES,EDKELVIN.S Edited By : ABY LUNDBERG Referred By : System,System Acquired by : System,System [facility] ED NOTEon 07-25-2019 ED NOTE HNO ID: [id number] Author: Germania MckayRn) NATALIA Hawkins Service: ? Author Type: Registered Nurse Type: ED Notes Filed: 07/25/2019 9:34 PM Note Text: attempted to ambulate pt she felt to dizzy and was unstable to walk with out assistance x2. Dr. Obregon aware, re-sent trop. [facility] ED NOTE HNO ID: [id number] Author: Germania MckayRn) NATALIA Hawkins Service: ? Author Type: Registered Nurse Type: ED Notes Filed: 07/25/2019 8:27 PM Note Text: repeat Trop drawn and sent pt updated and states she feels really good after the ativan. [facility] ED NOTE HNO ID: [id number] Author: Germania MckayRn) NATALIA Hawkins Service: ? Author Type: Registered Nurse Type: ED Notes Filed: 07/25/2019 8:28 PM Note Text: Patient returned to the Emergency Department. [facility] ED NOTE HNO ID: [id number] Author: Germania MckayRn) NATALIA Hawkins Service: ? Author Type: Registered Nurse Type: ED Notes Filed: 07/25/2019 7:59 PM Note Text: Patient transported to hi with O2 and Tech. [facility] ED NOTE HNO ID: [id number] Author: Germania MckayRn) NATALIA Hawkins Service: ? Author Type: Registered Nurse Type: ED Notes Filed: 07/25/2019 7:26 PM Note Text: Clean catch urine specimen obtained and sent. [facility] ED NOTE HNO ID: [id number] Author: Alley MckayRn) NATALIA Rodriguez Service: ? Author Type: Registered Nurse Type: ED Notes Filed: 07/25/2019 6:48 PM Note Text: Patient presents with return of chest and neck pain. Had stress test recently and added medication which relieved chest pain. Chest pain returned today. [facility] ED PROV NOTEon 07-25-2019 ED PROV NOTE HNO ID: [id number] Author: Tiny Obregon MD Service: ? Author Type: Physician Type: ED Provider Notes Filed: 07/25/2019 9:51 PM Note Text: ED Provider Note Patient Name: Dl Parsons SERVICE DATE: 07/25/19 History Patient presents with: Chest Pain HPI Ms. Parsons is a pleasant 74-year-old female with history of diabetes and hypertension and hyperlipidemia, never a smoker, now presenting with some left-sided neck discomfort coming up from her chest, as well as chest pressure and lightheadedness and sensation that she doesn't know where she is intermittently over the last month or so. She denies nausea or diaphoresis. She had a stress test which was reassuring about a week ago and is scheduled for an echocardiogram in about a week. She went to the urgent care because her blood pressure was more and more elevated in the context of becoming very concerned. She denies any unilateral weakness or numbness or trouble speaking or swallowing. She is having a bit of difficulty walking here. She is having some headaches as well. PAST MEDICAL HISTORY Diagnosis Date - Benign neoplasm of colon - Chest pain, unspecified - Dermatitis herpetiformis - Diabetes mellitus (HCC) - Esophageal reflux - Hemorrhage of gastrointestinal tract, unspecified - Hypothyroidism - Other specified disease of hair and hair follicles - Pure hypercholesterolemia - Snoring - Unspecified asthma(493.90) - Unspecified constipation - Unspecified essential hypertension PAST SURGICAL HISTORY Procedure Laterality Date - APPENDECTOMY - COLONOS W/REM POLYP SNARE 11/07/12 small polyps asc and hepatic, diverticulosis - moderate - COLONOSCOP W/ OR W/O BRSH SPEC 11/1999 Colonoscopy - COLONOSCOP W/ OR W/O BRSH SPEC 09/20/2007 Colonoscopy - COLONOSCOP W/ OR W/O BRSH SPEC 12/05/2014 Colonoscopy - COLONOSCOP W/ OR W/O BRSH SPEC 10/23/2018 Colonoscopy - DANDC, DIAG AND/OR THERAPEUTIC - EGD W/O BRSH SPECIMEN W/BX 11/07/12 fundic polyps, minimal gastritis - EGD W/O OR W/BRUSH/WASH 10/23/2018 EGD - TOTAL ABDOM HYSTERECTOMY WITH BSO FAMILY HISTORY Problem Relation Age of Onset - Diabetes Mother open heart surgery - Diabetes Father Several SC's - Colon Cancer Father - Colon Cancer Paternal Grandmother - Cancer Paternal Grandfather throat and stomach - Cancer Sister thyroid cancer - other (Multiple Myeloma) Sister Social History Tobacco Use - Smoking status: Never Smoker - Smokeless tobacco: Never Used Substance and Sexual Activity - Alcohol use: No - Drug use: No - Sexual activity: Not Currently ALLERGIES Allergen Reactions - Citracal [Calcium C* Intolerance constipation - Penicillins Rash - Pravastatin Other: See Comments Achy joints, legs felt "like lead" - Sulfa (Sulfonamide * Rash - Zoloft [Sertraline * Rash Review of Systems Constitutional: Positive for fatigue. Negative for chills and fever. HENT: Negative for ear pain, rhinorrhea and sore throat. Respiratory: Negative for cough and shortness of breath. Cardiovascular: Positive for chest pain. Negative for leg swelling. Gastrointestinal: Negative for abdominal pain, diarrhea, nausea and vomiting. Genitourinary: Negative for dysuria, flank pain, frequency and hematuria. Musculoskeletal: Positive for neck pain. Negative for back pain. Skin: Negative for rash. Neurological: Positive for light-headedness. Negative for speech difficulty, weakness, numbness and headaches. + trouble walking Psychiatric/Behavioral: Negative for hallucinations and suicidal ideas. Physical Exam BP 168/77 Pulse 84 Temp (Src) 98.2 (Oral) Resp 18 Wt 185 lb (83.9kg) SpO2 95% O2 Therapy: Room Air Physical Exam Vitals signs and nursing note reviewed. Constitutional: General: She is not in acute distress. Appearance: She is well-developed. HENT: Head: Normocephalic and atraumatic. Mouth/Throat: Pharynx: No oropharyngeal exudate. Eyes: Pupils: Pupils are equal, round, and reactive to light. Neck: Musculoskeletal: Normal range of motion and neck supple. Trachea: No tracheal deviation. Cardiovascular: Rate and Rhythm: Normal rate. Heart sounds: No murmur. No friction rub. No gallop. Pulmonary: Effort: Pulmonary effort is normal. No respiratory distress. Breath sounds: Normal breath sounds. No wheezing or rales. Abdominal: General: Bowel sounds are normal. There is no distension. Palpations: Abdomen is soft. Tenderness: There is no abdominal tenderness. There is no guarding or rebound. Musculoskeletal: Normal range of motion. Lymphadenopathy: Cervical: No cervical adenopathy. Skin: General: Skin is warm and dry. Findings: No erythema. Neurological: Mental Status: She is alert and oriented to person, place, and time. Cranial Nerves: No cranial nerve deficit. Motor: No abnormal muscle tone. Comments: FNF intact bilaterally, intact strength/sensation bilaterally, broad-based gait a bit unsteady, CN intact, VF's intact, AANDOx3 Psychiatric: Behavior: Behavior normal. Thought Content: Thought content normal. Judgment: Judgment normal. Diagnostic Testing ED Labs Ordered and Reviewed - No data to display Procedures ED Course / Clinical Impression ED Course as of Jul 25 2149 Tiny Obregon's Documentation TueJul 25, 2019 1909 ECG NSR @ 98 bpm no STEMI Clinical Impressions as of Jul 25 2149 Difficulty walking Chest pain, unspecified type Stress MDM / Disposition / Plan MDM Course: Vital signs were reviewed. Triage records were reviewed. Medical records were reviewed. Nursing notes were reviewed and incorporated. The following medications were administered: aspirin, ativan Patient placed on monitor ECG reviewed and interpreted as above Labs reviewed and interpreted as below. Radiographs were reviewed as below. Medical Decision Making: Differential diagnosis: Stress and adjustment reaction, concern about blood pressure, SC less likely but checking high sensitivity troponin's, dissection less likely but checking CT with contrast, less likely stroke or vertebrobasilar insufficiency but checking CT with contrast, other causes of similar symptoms. Assessment and plan: Ms. Parsons is a pleasant 74-year-old female presenting today with some chest discomfort and some difficulty walking and some headache. We will reassess after extensive workup here. CT/CTA nothing acute, but ? Chronic microvascular changes. With trouble walking, not c/w definite acute stroke and outside tPA window, tPA not indicated. No endovascular amenable lesion on CTA. Will give ASA and admit to r/o stroke w/ MRI. BP and CP better w/ ativan, certainly some anxiety component, but gait difficulty concerning. The attending who evaluated and managed this patient was Tiny Obregon . Plan: The patient was admitted to Regular nursing floor. Case discussed with admitting physician, Dr. Marley. Consent: A procedure or transfusion was performed - No Tiny Obregon MD SIGNATURE: MD Tiny Hair MD 07/25/19 0461 Normal [facility] High Sens Troponin Ton 07-25 High Sensitivity MARIOLA 7 ng/L Normal <12 [facility] Comment on above: Result Comment: When assessing risk for acute coronary syndromes: In patients undergoing blood draw greater than or equal to 2 hours from symptom onset, with history of very low to moderate risk and non-ischemic ECG, an initial hs-Troponin T less than 12 ng/L AND a 1 hour delta hs-Troponin T less than 3 ng/L should be considered very low risk for 30 day MACE. Performed By: #### H STNT ####[facility] [address] [place], [place] [phone] High Sensitivity MARIOLA Unable to assay due to hemolysis. Please submit new specimen. Normal <12 [facility] Comment on above: Result Comment: When assessing risk for acute coronary syndromes: In patients undergoing blood draw greater than or equal to 2 hours from symptom onset, with history of very low to moderate risk and non-ischemic ECG, an initial hs-Troponin T less than 12 ng/L AND a 1 hour delta hs-Troponin T less than 3 ng/L should be considered very low risk for 30 day MACE. Called to and read back by: ERINN ANDERSON AT 2053 ON [id number] CLAY Rubin Performed By: #### H STNT ####[facility] [address] [place] [address] High Sensitivity MARIOLA 8 ng/L Normal <12 [facility] Comment on above: Result Comment: When assessing risk for acute coronary syndromes: In patients undergoing blood draw greater than or equal to 2 hours from symptom onset, with history of very low to moderate risk and non-ischemic ECG, an initial hs-Troponin T less than 12 ng/L AND a 1 hour delta hs-Troponin T less than 3 ng/L should be considered very low risk for 30 day MACE. Performed By: #### H STNT ####[facility] [address] [place] [address] Magnesiumon 07-25-2019 Magnesium [Mass/Vol] 1.6 mg/dL Low 1.7-2.3 [facility] Comment on above: Performed By: #### C BCDIF, PT, PTT, CMP, MG1 ####[facility] [address] [place] [address] NT Pro BNPon 07-25-2019 PRO B Natr Peptide 12 pg/mL Normal <125 [facility] Comment on above: Performed By: #### N TBNP ####[facility] [address] [place] [address] Protimeon 07-25-2019 PT Coag (PPP) [Time] 1.0 s Normal 0.9-1.3 [facility] Comment on above: Result Comment: Melody min K Antagonist (VKA) Therapeutic Range: INR 2 to 3 (Target INR of 2.5) Note: For patients treated with VKA drugs, such as warfarin, the [place] [employer] 2012 Guideline recommends a therapeutic INR range of 2 to 3 (target INR of 2.5). This recommendation includes high-risk patients with antiphospholipid syndrome with previous arterial or venous thromboembolism, current-generation mechanical or bioprosthetic aortic heart valve replacement. Note: Patients with mechanical aortic valve replacement and additional risk factors for thromboembolic events (atrial fibrillation, previous thromboembolism, LV dysfunction, hypercoagulable conditions) or an older generation mechanical AVR (i.e., ball in-Cage) or any mechanical MVR should have a INR therapeutic range of 2.5 to 3.5 (target INR of 3). Carlos A DICKERSON, et al. Chest 2012, 141:7S-47S Roxane SOTO et al. [facility] 2017, 70: 252-289 Performed By: #### C BCDIF, PT, PTT, CMP, MG1 #### [facility] [address] [place] [address] PT Coag (PPP) [Time] 10.6 s Normal 9.7-13.0 [facility] Comment on above: Performed By: #### C BCDIF, PT, PTT, CMP, MG1 #### [facility] [address] [place] [address] Urinalysison 07-25-2019 Bilirubin, Urine Negative Normal Negative [facility] Comment on above: Performed By: #### U A ####[facility] [address] [place] [address] Clarity (U) Clear Normal Clear [facility] Comment on above: Performed By: #### U A ####[facility] [address] [place] [address] Color (U) Straw Critically abnormal Yellow [facility] Comment on above: Performed By: #### U A ####[facility] [address] [place] [address] Glucose Ql (U) Negative Normal [facility] Comment on above: Performed By: #### U A ####[facility] [address] [place] [address] Hemoglobin/Blood,Ur Negative Normal Negative [facility] Comment on above: Performed By: #### U A ####[facility] [address] [place] [address] Ketones Ql (U) Negative Normal Negative [facility] Comment on above: Performed By: #### U A ####[facility] [address] [place] [address] Leukest Negative Normal Negative [facility] Comment on above: Performed By: #### U A ####[facility] [address] [place] [address] Nitrite Ql (U) Negative Normal Negative [facility] Comment on above: Performed By: #### U A ####[facility] [address] [place] [address] pH (Bld) 6.5 Normal 5.0-8.0 [facility] Comment on above: Performed By: #### U A ####[facility] [address] [place] [address] Protein (U) [Mass/Vol] Negative Normal Negative [facility] Comment on above: Performed By: #### U A ####[place] [address] Specific [place], Ur <=1.005 Normal 1.001-1 .02 9 [facility] Comment on above: Performed By: #### U A ####[facility] [address] [place] [address] Urobilinogen Qn (U) 0.2 Normal 0.2-1.0 [facility] Comment on above: Performed By: #### U A ####[facility] [address] [place] [address] XR CHEST 1V FRONTAL PORTon 1 09-25-2018 XR CHEST 1V FRONTAL PORT * * *Final Report* * * DATE OF EXAM: Jul 25 2019 7:17PM MDX [id number] - XR CHEST 1V FRONTAL PORT / PROCEDURE REASON: Chest pain * * * * Physician Interpretation * * * * EXAMINATION: CHEST RADIOGRAPH (PORTABLE SINGLE VIEW AP) Exam Date/Time: 07/25/2019 7:17 PM Clinical History: Chest pain M: XCP_3 Comparison: 10/15/2014 RESULT: See impression. IMPRESSION: Lines, tubes, and devices: None. Lungs and pleura: No edema, infiltrates, pulmonary nodules or pleural effusions. Cardiomediastinal silhouette: Stable cardiomediastinal silhouette. Other: Thoracolumbar scoliosis Rail Operator: ESTRELLITA Transcribe Date/Time: Jul 25 2019 7:19P Dictated by : ANNE NATHAN MD This examination was interpreted and the report reviewed and electronically signed by: ANNE NATHAN MD on Jul 25 2019 7:20PM EST [id number] Normal [facility] NM CARDIAC PERF STRESS/PHARM on 07-17-2019 NM CARDIAC PERF STRESS/PHARM * * *Final Report* * * DATE OF EXAM: Jul 17 2019 11:55AM TAMELA 0006 - NM CARDIAC PERF STRESS/PHARM / PROCEDURE REASON: Z13.6-Encounter for screening for cardiovascular disorders * * * * Physician Interpretation * * * * PATIENT: Name: DL PARSONS Age: 74 years Gender: F CONCLUSIONS: 1. SPECT Perfusion Study: Normal. 2. There is no scintigraphic evidence for inducible ischemia. 3. No evidence of scarred myocardium. 4. Functional capacity N/A (pharmacological). 5. Left ventricle is small. The left ventricle systolic function is hyperdynamic. 6. Right ventricle is normal in size. 7. This is a low risk scan. LVEF % 80 Prior Study Comparison Prior nuclear cardiology exam was performed on 04/13/17. Nuclear Med Report:1-Day Tc-Tetrofosmin Gated SPECT Myocardial Perfusion with Regadenoson Stress: Myocardial perfusion imaging was performed at rest 30 minutes following the IV injection of Tc-99m tetrofosmin. The patient received 0.4 mg of regadenoson, via rapid IV push, immediately followed by Tc-99m tetrofosmin IV. Gated post stress tomographic imaging was performed 30 to 60 minutes later. See administered doses below. [facility] Date of service: 07/17/2019 9:46:14 AM Indication: CP - ECG uniterpretable OR unable to exercise. Interpreting physician: Lidia Modi DO Patient History: History of hypertension, diabetes mellitus, dyslipidemia and valvular heart disease. Medications currently taking are statins, ASA, ARB, B-gonzalez, Ca Gonzalez and diuretic. Height: 152.40 cm BSA: 1.91 m? Weight: 86.18 kg BMI: 37.1 kg/m? Resting Heart Rate: 92 bpm Resting Blood Press: 166/80 mmHg Image Quality The overall study imaging quality was deemed to be good. FINDINGS: LVEF: 80 % LEFT VENTRICLE The left ventricle is small. Left ventricular systolic function is hyperdynamic. Right Ventricle The right ventricle is normal in size. Stress Test Findings: There is no scintigraphic evidence for inducible ischemia. There is no evidence of scarring. The stress test was terminated due to the following: End of Protocol. Peak HR 121 bpm. (82 % MPHR) Peak BP 178 mmHg/77 mmHg Patient experienced shortness of breath and dizziness during stress. Stress ECG normal ST segment response and normal sinus rhythm. Stress complications: none. Final Rail Operator: RUBÉN Transcribe Date/Time: Jul 17 2019 9:46A Dictated by : LIDIA MODI DO This examination was interpreted and the report reviewed and electronically signed by: LIDIA MODI DO on Jul 18 2019 4:39PM EST [id number] [facility] NUCLEAR STRESS LEXISCAN (CAR D)on 07-17-2019 NUCLEAR STRESS LEXISCAN (CARD) NAME : DL PARSONS PID : [id number] : 1945 Gender : Female Race : ORD : [id number] Procedure Date : Jul 17 2019 10:40:15 Edit Date : Jul 20 2019 08:02:18 Conclusions:PLEASE REFER TO IMAGING SECTION IN EPIC FOR COMPLETE INTERPRETATION OF STRESS TEST AND MYOCARDIAL PERFUSION IMAGING Protocol Name : LEXISCAN Time In Exercise Phase : 00:06:00 Max. Systolic BP : 178 mmHg Max Diastolic BP : 77 mmHg Max Heart Rate : 121 BPM Max Predicted Heart Rate : 147 BPM Recovery ECG Response (OLD) : Reason For Termination : End of Protocol Test Reason : Chest Pain, SOB Location :NSL Overread By : LIDIA MODI D.O. Edited By : Yoon Mcconnell Referred By : NAVDEEP BUENO Acquired by : DAVID FORD [facility] Robin 07-16-2019 MARGAUXN Telephone ([facility]) DL PARSONS ([id number]) 1945 F NFR Date Time Provider Department 07/16/19 ELIZABET JACOBS (RN) [facility] During your visit today, we recorded the following information about you: Elizabet Jacobs RN, RN 07/16/2019 1:40 PM Signed Spoke with patient regarding reminder for stress test tomorrow and given instructions. Allergies As of Date: 07/16/2019 Noted Allergy Reaction CITRACAL (CALCIUM CITRATE) 12/25/2009 5 - Intolerance Comments: constipation PENICILLINS 05/13/2005 2 - Rash PRAVASTATIN 04/13/2013 14 - Other: See Comments Comments: Achy joints, legs felt "like lead" SULFA (SULFONAMIDE ANTIBIOTICS) 05/13/2005 2 - Rash ZOLOFT (SERTRALINE HCL) 05/14/2005 2 - Rash Date Reviewed: 07/02/2019 Reviewed by: Mary Anand LPN - Fully Assessed Reason for Visit: Reminder Call [[id number]] Prescriptions as of 07/16/2019 Sig: ASPIRIN 81 MG TABLET,DELAYED * Take 1 tablet by mouth once d* METOPROLOL TARTRATE 25 MG TAB* Take 1 tablet by mouth twice * LANCETS Test blood sugar(s) 1 x daily* BLOOD GLUCOSE TEST STRIPS Test blood sugar(s) 1 time da* AMLODIPINE 10 MG TABLET Take 1 tablet by mouth once d* IRBESARTAN 300 MG-HYDROCHLORO* Take 1 tablet by mouth once d* ATORVASTATIN 10 MG TABLET Take 1 tablet by mouth once d* LEVOTHYROXINE 75 MCG TABLET Take 1 tablet by mouth once d* METFORMIN 500 MG TABLET Take 2 tablets by mouth twice* POTASSIUM CHLORIDE ER 8 MEQ C* Take 1 capsule by mouth twice* CHOLECALCIFEROL (VITAMIN D3) * Take 1 capsule by mouth once * ERGOCALCIFEROL (VITAMIN D2) 5* Take 1 capsule by mouth once * Patient not taking: Reported on 07/02/2019 LANSOPRAZOLE 30 MG CAPSULE,DE* Take one capsule every other * KETOCONAZOLE 2 % TOPICAL CREAM Apply 1 application to affect* Patient not taking: Reported on 03/02/2019 ALBUTEROL SULFATE HFA 90 MCG/* Inhale 2 Puffs as instructed * Patient not taking: Reported on 03/02/2019 LANCING DEVICE WITH LANCETS K* 1 Device once daily. BLOOD GLUCOSE CONTROL, NORMAL* As intstructed. Problem List As Of Date 07/16/2019 Noted Resolved PURE HYPERCHOLESTEROLEM [E78.00] 05/14/2005 More... Essential hypertension [I10] 05/14/2005 More... ESOPHAGEAL REFLUX [K21.9] 05/14/2005 More... DM w/o Complication Type II, Uncontrolled [E11.*12/08/2007 07/18/2014 More... MYLES (obstructive sleep apnea) [G47.33] 09/11/2008 More... Class 2 obesity due to excess calories without *09/11/2008 More... More... Abnormal Mammogram [R92.8] 06/19/2009 More... Vitamin D Deficiency [E55.9] 06/23/2009 More... Chronic lymphocytic thyroiditis [E06.3] 06/09/2010 Thyroiditis [E06.9] 07/08/2010 Osteopenia [M85.80] 05/21/2011 More... Hypothyroid [E03.9] 05/21/2011 More... Asthma [J45.909] 11/01/2011 DM neuropathy, type II diabetes mellitus (HCC) *04/19/2014 11/08/2016 Diabetes mellitus type 2, uncomplicated (HCC) [*07/18/2014 Hemorrhage of gastrointestinal tract, unspecifi*12/05/2014 Dermatochalasis of both upper eyelids [H02.831,*05/12/2018 05/12/2018 Encounter Status:Closed by [facility] Office Visit (AGCARDWST) ----DL PARSONS ([id number]) 1945 F NFRDate Time Provider Department10/05/17 10:30 AM MERLIN AMINWSMichelle During your visit today, we recorded the following information about you: Pulse Blood pressure Weight Height 86/minute 124/76 87.3 kg 1.524 Sascha Amin MD 10/05/2017 3:01 PM SignedPERTINENT CARDIAC HISTORYAbnormal ecgAortic sclerosisHTNHLDMChest painDOEOSA - CPAPADHERENCE TO GUIDELINESACE-I or ARB for HF with prior LVEFANDlt;40 (NQF 0081) - N/AASA or Plavix for ASHD (NQF 0067) - N/ABeta gonzalez for ASHD with prior SC or prior LVEFANDlt;40 (NQF 0070) - N/ABeta gonzalez for HF with prior LVEFANDlt;40 (NQF 0083) - N/AACE-I or ARB for ASHD with DM or prior LVEFANDlt;40 (NQF 0066) - metStatin therapy for ASHD or FHL or DM - metBMI documented and plan if ANDgt;25 (NQF 0421) - lifestyle recommendation formTobacco use screening and referral (NQF 0028) - lifestyle recommendation formRecommendation for whole food, plant based diet - lifestyle recommendation formCLINICAL IMPRESSION/PLAN:Dl Parsons is doing well. She has mild aortic valve disease. Herblood pressure is well-controlled.Peripheral edema is likely related to venous insufficiency. I recommend thatshe keep her legs elevated during the afternoon. support stockings may behelpful. I would like to avoid increasing her diuretic.She will otherwise continue her current medications. I will see her in 8 monthsor as needed .she has been advised to increase her activity and try to get herweight under better control. If her exercise tolerance does not continue toimprove, she has been asked to let me know.Written and verbal health teaching given to patient, patient verbalizesunderstanding and agrees with treatment plan.This note was generated using Ondax voice recognition system, and there may besome incorrect words, spellings, and punctuation that were not noted inchecking the note before saving.DIAGNOSIS FOR VISIT:Aortic sclerosisHypertensionHISTORY OF PRESENT ILLNESSDl Parsons returns for follow-up of multiple cardiac issues, as notedabove.Chest pain syndrome has improvedShe has undergone her surgery, which was uncomplicated. She has increasedactivity. Exercise tolerance has been stable, although she has gained someweight over the winter. She's had minimal edema. This is gone by the morning.She denies syncope, palpitations, TIAs, amaurosis and claudication.ALLERGIES:ALLERG IESAllergen Reactions- Citracal [Calcium C* Intolerance constipation- Penicillins Rash- Pravastatin Other: See Comments Achy joints, legs felt ANDquot;like leadANDquot;- Sulfa (Sulfonamide * Rash- Zoloft [Sertraline * RashCURRENT OUTPATIENT MEDICATIONS:Irbesartan-Hydroc hlorothiazide 300-12.5 mg per tablet Take 1 tablet by mouthonce daily. replaces losartan hctzatorvastatin (LIPITOR) 10 mg tablet Take 1 tablet by mouth once daily.lansoprazole (PREVACID) 30 mg capsule Take 1 capsule by mouth once daily. Asneeded.lvljszuo-olr-djbi-FA -lutein (CENTRUM SILVER WOMEN) 8 mg iron-400 mcg-300 mcgtab Take by mouth.L. gasseri-B. bifidum-B longum (Evgen) 1.5 billion cell capTake by mouth.ketoconazole (NIZORAL) 2 % cream Apply 1 application to affected area oncedaily. Continue 1 week more after rash resolvesamLODIPine (NORVASC) 10 mg tablet Take 1 tablet by mouth once daily. DOSECHANGE, TAKE ONE TABLET DAILY.albuterol HFA (PROVENTIL HFA, VENTOLIN HFA) 90 mcg/actuation inhaler Inhale 2Puffs as instructed four times daily.blood sugar diagnostic (CONTOUR TEST STRIPS) test strip Test blood sugar(s) 1times daily. Dx: Type 2 DM - Controlled E11.9 Insulin: Nolevothyroxine (LEVOXYL) 75 mcg tablet Take 1 tablet by mouth once daily.metFORMIN (GLUCOPHAGE) 500 mg tablet Take 2 tablets by mouth twice daily withmeals.ergocalciferol, vitamin D2, (DRISDOL) 50,000 unit capsule Take 1 capsule bymouth once each week.potassium chloride SR (MICRO-K) 8 mEq cpER Take 1 capsule by mouth twice daily.Lancets lancets Test blood sugar(s) 1 x daily. Dx: E11.9. Insulin: Noblood sugar diagnostic (CONTOUR TEST STRIPS) test strip 1 Strip once daily. Dx:250.00 Insulin: NoLancing Device with Lancets (ACCU-CHEK SOFT DEV LANCETS) Kit 1 Device oncedaily.Blood Glucose Control, Normal (CONTOUR CONTROL SOLUTION, NML) Misc Soln Asintstructed.PHYSICAL EXAMINATION:VITAL SIGNS: BP 124/76 Pulse 86 Ht 5' 0ANDquot; (1.52m) Wt 192 lb 6.4 oz(87.3kg) BMI 37.58 kg/(m2).Chest: Clear to percussion and auscultation. Trachea is midline. Air entry isequal. Cardiac: Regular rhythm. S1 and S2 are normal. PMI is nondisplaced.There is a 1/6 systolic ejection murmur. Carotids are brisk without bruits.JVP is less than 10 cm. Abdomen: Soft and nontender. There are no pulsatilemasses or bruits. No liver enlargement. Bowel sounds are active.Extremities: Trace edema. Pulses are intact and symmetrical.Recent labs were reviewed. Renal function is normal. LDL was 58. TSH is normal.She underwent stress testing prior to surgery, which showed no evidence ofischemia. Her echocardiogram showed normal ejection fraction. There was nosignificant valve disease.Electronically Signed:Merlin Amin MDFeuary 2017 10:42 [facility]: Teri Leach MD 10/05/2017 10:46 AM SignedLIFESTYLE CHANGEA healthy lifestyle is the most important component of your overall treatmentplan. Please give serious thought to the following areas and commit to makinglong term changes.EAT A WHOLE FOOD, PLANT BASED DIETThe nutrition your body gets is more important than the medicine you take.What matters most is the overall way you eat. We encourage you to minimize theuse of animal products (which include dairy and all meats except fatty fish)and use whole, unprocessed plant foods to provide your protein, vitamins andother nutrients. We have a lot of information to share with you on this topic. We also hold Shared Medical Appointments, where you can come visit with in the company of other patients and spend over an hour talking aboutthe challenges of changing the way you eat. This is not a ANDquot;dietANDquot;.It is a way of life that you will keep with you.EXERCISE REGULARLYIt is not important to spend hours in the gym, lifting weights and perspiringheavily. A total of 2-3 hours per week of aerobic (causing you to bemoderately short of breath) exercise is sufficient to improve your health.Talk to us before you begin a new exercise program, if you have heart diseaseor experience shortness of breath or chest pain.REDUCE STRESSChronic emotional and physical stress leads to disease. Ways of reducingstress include meditation, visualization, prayer, yoga and other forms ofrelaxation therapy. Consistency is the avila. Find a technique that works foryou and do it every day.CULTIVATE RELATIONSHIPSLoneliness and isolation have a major negative impact on health. Seek outothers who can love, care for and nurture you. Avoid hurtful relationships.MAINTAIN IDEAL BODY WEIGHTThe best way to do this is to do all the things above. Our bodies naturallyfind the right weight if we keep moving and feed ourselves the right food. Ifyour BMI is greater than 25, we strongly recommend a referral to a weightmanagement program. Please speak to us or your family physician aboutavailable programs.AVOID NICOTINE IN ALL FORMSThis includes all tobacco products, whether chewed, smoked, vaped, or rubbed onthe skin. Smoking cessation programs, which can make use of tobaccosubstitutes, medications to suppress cravings and behavior management, areavailable. Please contact your family physician about programs in your area.Referring Provider: NAVDEEP BUENO ([facility]) [[id number]]Allergies As of Date: 10/05/2017 Noted Allergy ReactionCITRACAL (CALCIUM CITRATE) 12/25/2009 5 - Intolerance Comments: constipationPENICILLINS 05/13/2005 2 - RashPRAVASTATIN 04/13/2013 14 - Other: See Comments Comments: Achy joints, legs felt "like lead"SULFA (SULFONAMIDE ANTIBIOTICS) 05/13/2005 2 - RashZOLOFT (SERTRALINE HCL) 05/14/2005 2 - RashDate Reviewed: 10/05/2017Reviewed by: Kevon MckayRn) NATALIA Gaines - Fully AssessedReason for Visit: Follow Up [171]Primary Visit Diagnosis:Nonrheumatic aortic valve stenosis [I35.0] Other Visit Diagnosis:Hypertension, essential [I10]Prescriptions as of 10/05/2017 Sig: IRBESARTAN 300 MG-HYDROCHLORO* Take 1 tablet by mouth once d* ATORVASTATIN 10 MG TABLET Take 1 tablet by mouth once d* LANSOPRAZOLE 30 MG CAPSULE,DE* Take 1 capsule by mouth once * MULTIVIT WITH XOBYDDSZ-CGFF-V* Take by mouth. LACTOBACILLS GASSERI-BIFIDOBA* Take by mouth. KETOCONAZOLE 2 % TOPICAL CREAM Apply 1 application to affect* AMLODIPINE 10 MG TABLET Take 1 tablet by mouth once d* ALBUTEROL SULFATE HFA 90 MCG/* Inhale 2 Puffs as instructed * BLOOD SUGAR DIAGNOSTIC STRIPS Test blood sugar(s) 1 times d* LEVOTHYROXINE 75 MCG TABLET Take 1 tablet by mouth once d* METFORMIN 500 MG TABLET Take 2 tablets by mouth twice* ERGOCALCIFEROL (VITAMIN D2) 5* Take 1 capsule by mouth once * POTASSIUM CHLORIDE ER 8 MEQ C* Take 1 capsule by mouth twice* LANCETS Test blood sugar(s) 1 x daily* BLOOD SUGAR DIAGNOSTIC STRIPS 1 Strip once daily. Dx: 250.0* LANCING DEVICE WITH LANCETS K* 1 Device once daily. BLOOD GLUCOSE CONTROL, NORMAL* As intstructed.Problem List As Of Date 10/05/2017 Noted Resolved PURE HYPERCHOLESTEROLEM [E78.00] INVALID FOR* More... Essential hypertension [I10] INVALID FOR* More... ESOPHAGEAL REFLUX [K21.9] INVALID FOR* More... DM w/o Complication Type II, Uncontrolled [E11.*INVALID FOR*07/18/2014 More... MYLES (obstructive sleep apnea) [G47.33] INVALID FOR* More... OBESITY NOS [E66.9] INVALID FOR* More... More... Abnormal Mammogram [R92.8] INVALID FOR* More... Vitamin D Deficiency [E55.9] INVALID FOR* More... Chronic lymphocytic thyroiditis [E06.3] INVALID FOR* Thyroiditis [E06.9] INVALID FOR* Osteopenia [M85.80] INVALID FOR* More... Hypothyroid [E03.9] INVALID FOR* More... Asthma [J45.909] INVALID FOR* DM neuropathy, type II diabetes mellitus (HCC) *INVALID FOR*11/08/2016 Diabetes mellitus type 2, uncomplicated (HCC) [*INVALID FOR* Hemorrhage of gastrointestinal tract, unspecifi*INVALID FOR* Other instructions from your clinician: LIFESTYLE CHANGE A healthy lifestyle is the most important component of your overall treatment plan. Please give serious thought to the following areas and commit to making penitentiary changes. EAT A WHOLE FOOD, PLANT BASED DIET The nutrition your body gets is more important than the medicine you take. What matters most is the overall way you eat. We encourage you to minimize the use of animal products (which include dairy and all meats except fatty fish) and use whole, unprocessed plant foods to provide your protein, vitamins and other nutrients. We have a lot of information to share with you on this topic. We also hold Shared Medical Appointments, where you can come visit with Dr. Amin in the company of other patients and spend over an hour talking about the challenges of changing the way you eat. This is not a "diet". It is a way of life that you will keep with you. EXERCISE REGULARLY It is not important to spend hours in the gym, lifting weights and perspiring heavily. A total of 2-3 hours per week of aerobic (causing you to be moderately short of breath) exercise is sufficient to improve your health. Talk to us before you begin a new exercise program, if you have heart disease or experience shortness of breath or chest pain. REDUCE STRESS Chronic emotional and physical stress leads to disease. Ways of reducing stress include meditation, visualization, prayer, yoga and other forms of relaxation therapy. Consistency is the avila. Find a technique that works for you and do it every day. CULTIVATE RELATIONSHIPS Loneliness and isolation have a major negative impact on health. Seek out others who can love, care for and nurture you. Avoid hurtful relationships. MAINTAIN IDEAL BODY WEIGHT The best way to do this is to do all the things above. Our bodies naturally find the right weight if we keep moving and feed ourselves the right food. If your BMI is greater than 25, we strongly recommend a referral to a weight management program. Please speak to us or your family physician about available programs. AVOID NICOTINE IN ALL FORMS This includes all tobacco products, whether chewed, smoked, vaped, or rubbed on the skin. Smoking cessation programs, which can make use of tobacco substitutes, medications to suppress cravings and behavior management, are available. Please contact your family physician about programs in your area.Classic SmartForms filed during this visit:Extended VitalsEncounter Number: [id number] Status:Closed by MERLIN AMIN MD on 10/05/17 Normal [facility] PROGRESSon 10-05-2017 PROGRESS HNO ID: [id number] thor: Merlin Mckenzie: (none)Author Type: PhysicianType: Progress NotesFiled: 10/05/2017 3:01 PMNote Text:PERTINENT CARDIAC HISTORYAbnormal ecgAortic sclerosisHTNHLDMChest painDOEOSA - CPAPADHERENCE TO GUIDELINESACE-I or ARB for HF with prior LVEF<40 (NQF 0081) - N/AASA or Plavix for ASHD (NQF 0067) - N/ABeta gonzalez for ASHD with prior SC or prior LVEF<40 (NQF 0070) - N/ABeta gonzalez for HF with prior LVEF<40 (NQF 0083) - N/AACE-I or ARB for ASHD with DM or prior LVEF<40 (NQF 0066) - metStatin therapy for ASHD or FHL or DM - metBMI documented and plan if >25 (NQF 0421) - lifestyle recommendation formTobacco use screening and referral (NQF 0028) - lifestyle recommendationformRecommendat ion for whole food, plant based diet - lifestyle recommendationformCLINICAL IMPRESSION/PLAN:Dl Parsons is doing well. She has mild aortic valve disease. Herblood pressure is well-controlled.Peripheral edema is likely related to venous insufficiency. I recommendthat she keep her legs elevated during the afternoon. support stockingsmay be helpful. I would like to avoid increasing her diuretic.She will otherwise continue her current medications. I will see her in 8months or as needed .she has been advised to increase her activity andtry to get her weight under better control. If her exercise tolerance doesnot continue to improve, she has been asked to let me know.Written and verbal health teaching given to patient, patient verbalizesunderstanding and agrees with treatment plan.This note was generated using Ondax voice recognition system, and theremay be some incorrect words, spellings, and punctuation that were notnoted in checking the note before saving.DIAGNOSIS FOR VISIT:Aortic sclerosisHypertensionHISTORY OF PRESENT ILLNESSCldarrion Parsons returns for follow-up of multiple cardiac issues, asnoted above.Chest pain syndrome has improvedShe has undergone her surgery, which was uncomplicated. She has increasedactivity. Exercise tolerance has been stable, although she has gained someweight over the winter. She's had minimal edema. This is gone by themorning. She denies syncope, palpitations, TIAs, amaurosis andclaudication.ALLERGIES:ALL ERGIESAllergen Reactions- Citracal [Calcium C* Intolerance constipation- Penicillins Rash- Pravastatin Other: See Comments Achy joints, legs felt "like lead"- Sulfa (Sulfonamide * Rash- Zoloft [Sertraline * RashCURRENT OUTPATIENT MEDICATIONS:Irbesartan-Hydroc hlorothiazide 300-12.5 mg per tablet Take 1 tablet bymouth once daily. replaces losartan hctzatorvastatin (LIPITOR) 10 mg tablet Take 1 tablet by mouth once daily.lansoprazole (PREVACID) 30 mg capsule Take 1 capsule by mouth once daily.As needed.axipxvru-tiu-ufeh-FA-l utein (CENTRUM SILVER WOMEN) 8 mg iron-400 mcg-300mcg tab Take by mouth.L. gasseri-B. bifidum-B longum (Evgen) 1.5 billion cellcap Take by mouth.ketoconazole (NIZORAL) 2 % cream Apply 1 application to affected area oncedaily. Continue 1 week more after rash resolvesamLODIPine (NORVASC) 10 mg tablet Take 1 tablet by mouth once daily. DOSECHANGE, TAKE ONE TABLET DAILY.albuterol HFA (PROVENTIL HFA, VENTOLIN HFA) 90 mcg/actuation inhalerInhale 2 Puffs as instructed four times daily.blood sugar diagnostic (CONTOUR TEST STRIPS) test strip Test bloodsugar(s) 1 times daily. Dx: Type 2 DM - Controlled E11.9 Insulin: Nolevothyroxine (LEVOXYL) 75 mcg tablet Take 1 tablet by mouth once daily.metFORMIN (GLUCOPHAGE) 500 mg tablet Take 2 tablets by mouth twice dailywith meals.ergocalciferol, vitamin D2, (DRISDOL) 50,000 unit capsule Take 1 capsuleby mouth once each week.potassium chloride SR (MICRO-K) 8 mEq cpER Take 1 capsule by mouth twicedaily.Lancets lancets Test blood sugar(s) 1 x daily. Dx: E11.9. Insulin: Noblood sugar diagnostic (CONTOUR TEST STRIPS) test strip 1 Strip oncedaily. Dx: 250.00 Insulin: NoLancing Device with Lancets (ACCU-CHEK SOFT DEV LANCETS) Kit 1 Device oncedaily.Blood Glucose Control, Normal (CONTOUR CONTROL SOLUTION, NML) Misc Soln Asintstructed.PHYSICAL EXAMINATION:VITAL SIGNS: BP 124/76 Pulse 86 Ht 5' 0" (1.52m) Wt 192 lb 6.4 oz(87.3kg) BMI 37.58 kg/(m2).Chest: Clear to percussion and auscultation. Trachea is midline. Airentry is equal. Cardiac: Regular rhythm. S1 and S2 are normal. PMI isnondisplaced. There is a 1/6 systolic ejection murmur. Carotids arebrisk without bruits. JVP is less than 10 cm. Abdomen: Soft andnontender. There are no pulsatile masses or bruits. No liverenlargement. Bowel sounds are active. Extremities: Trace edema. Pulsesare intact and symmetrical.Recent labs were reviewed. Renal function is normal. LDL was 58. TSH isnormal.She underwent stress testing prior to surgery, which showed no evidence ofischemia. Her echocardiogram showed normal ejection fraction. There was nosignificant valve disease.Electronically Signed:Merlin Amin MDFebruary 2017 10:42 [facility]: Clarisa Pastrana MD 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 Kaitlyn Condon MD Work Phone: [facility] 05-14-2025 10:00-0400 Body mass index (BMI) [Ratio] 38 kg/m2 Dr. Kaitlyn Condon MD Work Phone: [facility] 05-14-2025 10:00-0400 Body temperature 98.2 [degF] Dr. Kaitlyn Condon MD Work Phone: [facility] 05-14-2025 10:00-0400 Body weight 85.[address] Kaitlyn Condon MD Work Phone: [facility] 05-14-2025 10:00-0400 Diastolic blood pressure 78 mm[Hg] Dr. Kaitlyn Condon MD Work Phone: [facility] 05-14-2025 10:00-0400 Heart rate 69 /min Dr. Kaitlyn Condon MD Work Phone: [facility] 05-14-2025 10:00-0400 SaO2% (BldA) [Mass fraction] 94 % Dr. Kaitlyn Condon MD Work Phone: [facility] 05-14-2025 10:00-0400 Systolic blood pressure 140 mm[Hg] Dr. Kaitlyn Condon MD Work Phone: [facility] 04-19-2025 10:53-0400 Body height 152.4 cm Pacc 2 Work Phone: [facility] 04-19-2025 10:53-0400 Body mass index (BMI) [Ratio] 36.64 kg/m2 Pacc 2 Work Phone: [facility] 04-19-2025 10:53-0400 Body temperature 97.9 [degF] Pacc 2 Work Phone: [facility] 04-19-2025 10:53-0400 Body weight 85.1 kg Pacc 2 Work Phone: [facility] 04-19-2025 10:53-0400 Diastolic blood pressure 76 mm[Hg] Pacc 2 Work Phone: [facility] 04-19-2025 10:53-0400 Heart rate 68 /min Pacc 2 Work Phone: [facility] 04-19-2025 10:53-0400 Respiratory rate 16 /min Pacc 2 Work Phone: [facility] 04-19-2025 10:53-0400 SaO2% (BldA) [Mass fraction] 97 % Pacc 2 Work Phone: [address]05-2025 10:53-0400 Systolic blood pressure 144 mm[Hg] Pac 2 Work Phone: [facility] 03-27-2025 11:24-0400 Body height 149.[address] Kaitlyn Condon MD Work Phone: [facility] 03-27-2025 11:24-0400 Body mass index (BMI) [Ratio] 38 kg/m2 Dr. Kaitlyn Condon MD Work Phone: [facility] 03-27-2025 11:24-0400 Body temperature 98.2 [degF] Dr. Kaitlyn Condon MD Work Phone: [facility] 03-27-2025 11:24-0400 Body weight 85.[address] Kaitlyn Condon MD Work Phone: [facility] 03-27-2025 11:24-0400 Diastolic blood pressure 77 mm[Hg] Dr. Kaitlyn Condon MD Work Phone: [facility] 03-27-2025 11:24-0400 Heart rate 70 /min Dr. Kaitlyn Condon MD Work Phone: [facility] 03-27-2025 11:24-0400 Respiratory rate 16 /min Dr. Kaitlyn Condon MD Work Phone: [facility] 03-27-2025 11:24-0400 SaO2% (BldA) [Mass fraction] 92 % Dr. Kaitlyn Condon MD Work Phone: [facility] 03-27-2025 11:24-0400 Systolic blood pressure 133 mm[Hg] Dr. Kaitlyn Condon MD Work Phone: [facility] 03-16-2025 16:00-0400 Body temperature 99.2 [degF] Dr. Kaitlyn Condon MD Work Phone: [facility] 03-16-2025 16:00-0400 Diastolic blood pressure 64 mm[Hg] Dr. Kaitlyn Condon MD Work Phone: [facility] 03-16-2025 16:00-0400 Heart rate 83 /min Dr. Kaitlyn Condon MD Work Phone: [facility] 03-16-2025 16:00-0400 Respiratory rate 17 /min Dr. Kaitlyn Condon MD Work Phone: [facility] 03-16-2025 16:00-0400 SaO2% (BldA) [Mass fraction] 93 % Dr. Kaitlyn Condon MD Work Phone: [facility] 03-16-2025 16:00-0400 Systolic blood pressure 145 mm[Hg] Dr. Kaitlyn Condon MD Work Phone: [facility] 03-16-2025 07:41-0400 Inhaled oxygen flow rate 2 L/min Dr. Kaitlyn Condon MD Work Phone: [facility] 03-15-2025 17:17-0400 Body mass index (BMI) [Ratio] 39.6 kg/m2 Dr. Kaitlyn Condon MD Work Phone: [facility] 03-15-2025 17:17-0400 Body weight 88.[address] Kaitlyn Condon MD Work Phone: [facility] 03-15-2025 16:16-0400 Body height 149.[address] Kaitlyn Condon MD Work Phone: [facility] 02-19-2025 03:18-0400 Body temperature 98.2 [degF] Dr. Kaitlyn Condon MD Work Phone: [facility] 02-19-2025 03:18-0400 Diastolic blood pressure 75 mm[Hg] Dr. Kaitlyn Condon MD Work Phone: [facility] 02-19-2025 03:18-0400 Heart rate 76 /min Dr. Kaitlyn Condon MD Work Phone: [facility] 02-19-2025 03:18-0400 Respiratory rate 18 /min Dr. Kaitlyn Condon MD Work Phone: [facility] 02-19-2025 03:18-0400 SaO2% (BldA) [Mass fraction] 96 % Dr. Kaitlyn Condon MD Work Phone: [facility] 02-19-2025 03:18-0400 Systolic blood pressure 131 mm[Hg] Dr. Kaitlyn Condon MD Work Phone: [facility] 02-18-2025 23:40-0400 Body mass index (BMI) [Ratio] 38.1 kg/m2 Dr. Kaitlyn Condon MD Work Phone: [facility] 02-18-2025 23:40-0400 Body weight 85.[address] Kaitlyn Condon MD Work Phone: [facility] 02-18-2025 21:15-0400 Body height 149.[address] Kaitlyn Condon MD Work Phone: [facility] 12-19-2024 08:39-0400 Body height 149.[address] Kaitlyn Condon MD Work Phone: [facility] 12-19-2024 08:39-0400 Body mass index (BMI) [Ratio] 39.2 kg/m2 Dr. Kaitlyn Condon MD Work Phone: [facility] 12-19-2024 08:39-0400 Body temperature 98.2 [degF] Dr. Kaitlyn Condon MD Work Phone: [facility] 12-19-2024 08:39-0400 Body weight 88.[address] Kaitlyn Condon MD Work Phone: [facility] 12-19-2024 08:39-0400 Diastolic blood pressure 71 mm[Hg] Dr. Kaitlyn Condon MD Work Phone: [facility] 12-19-2024 08:39-0400 Heart rate 68 /min Dr. Kaitlyn Condon MD Work Phone: [facility] 12-19-2024 08:39-0400 Respiratory rate 16 /min Dr. Kaitlyn Condon MD Work Phone: [facility] 12-19-2024 08:39-0400 SaO2% (BldA) [Mass fraction] 93 % Dr. Kaitlyn Condon MD Work Phone: [facility] 12-19-2024 08:39-0400 Systolic blood pressure 144 mm[Hg] Dr. Kaitlyn Condon MD Work Phone: [facility] 10-09-2024 07:54-0500 Body temperature 99.1 [degF] Dr. Kaitlyn Condon MD Work Phone: [facility] 10-09-2024 07:54-0500 Diastolic blood pressure 68 mm[Hg] Dr. Kaitlyn Condon MD Work Phone: [facility] 10-09-2024 07:54-0500 Heart rate 63 /min Dr. Kaitlyn Condon MD Work Phone: [facility] 10-09-2024 07:54-0500 Respiratory rate 16 /min Dr. Kaitlyn Condon MD Work Phone: [facility] 10-09-2024 07:54-0500 SaO2% (BldA) [Mass fraction] 94 % Dr. Kaitlyn Condon MD Work Phone: [facility] 10-09-2024 07:54-0500 Systolic blood pressure 105 mm[Hg] Dr. Kaitlyn Condon MD Work Phone: [facility] 10-09-2024 06:47-0500 Body mass index (BMI) [Ratio] 37 kg/m2 Dr. Kaitlyn Condon MD Work Phone: [facility] 10-09-2024 06:47-0500 Body weight [address] Kaitlyn Condon MD Work Phone: [facility] 12-30-2022 09:33-0400 Body height 149.[address] Kaitlyn Condon Work Phone: [facility] 12-30-2022 09:33-0400 Body mass index (BMI) [Ratio] 39.4 kg/m2 Dr. Kaitlyn Condon Work Phone: [facility] 12-30-2022 09:33-0400 Body temperature 97.4 [degF] Dr. Kaitlyn Condon Work Phone: [facility] 12-30-2022 09:33-0400 Body weight 88.[address] Kaitlyn Condon Work Phone: [facility] 12-30-2022 09:33-0400 Diastolic blood pressure 74 mm[Hg] Dr. Kaitlyn Condon Work Phone: [facility] 12-30-2022 09:33-0400 Heart rate 74 /min Dr. Kaitlyn Condon Work Phone: [facility] 12-30-2022 09:33-0400 Respiratory rate 16 /min Dr. Kaitlyn Condon Work Phone: [facility] 12-30-2022 09:33-0400 SaO2% (BldA) [Mass fraction] 92 % Dr. Kaitlyn Condon Work Phone: [facility] 12-30-2022 09:33-0400 Systolic blood pressure 125 mm[Hg] Dr. Kaitlyn Condon Work Phone: [facility] 06-09-2022 09:56-0400 Body temperature 98.1 [degF] Dr. Kaitlyn Condon Work Phone: [facility] Work Phone: 06-09-2022 09:56-0400 Diastolic blood pressure 77 mm[Hg] Dr. Kaitlyn Condon Work Phone: [facility] Work Phone: 06-09-2022 09:56-0400 Heart rate 83 /min Dr. Kaitlyn Condon Work Phone: [facility] Work Phone: 06-09-2022 09:56-0400 Respiratory rate 16 /min Dr. Kaitlyn Condon Work Phone: [facility] Work Phone: 06-09-2022 09:56-0400 SaO2% (BldA) [Mass fraction] 93 % Dr. Kaitlyn Condon Work Phone: [facility] Work Phone: 06-09-2022 09:56-0400 Systolic blood pressure 143 mm[Hg] Dr. Kaitlyn Condon Work Phone: [facility] Work Phone: 02-02-2022 08:40-0400 Body temperature 98.3 [degF] Dr. Kaitlyn Condon Work Phone: [facility] Work Phone: 02-02-2022 08:40-0400 Diastolic blood pressure 64 mm[Hg] Dr. Kaitlyn Condon Work Phone: [facility] Work Phone: 02-02-2022 08:40-0400 Heart rate 64 /min Dr. Kaitlyn Condon Work Phone: [facility] Work Phone: 02-02-2022 08:40-0400 Respiratory rate 16 /min Dr. Kaitlyn Condon Work Phone: [facility] Work Phone: 02-02-2022 08:40-0400 SaO2% (BldA) [Mass fraction] 96 % Dr. Kaitlyn Condon Work Phone: [facility] Work Phone: 02-02-2022 08:40-0400 Systolic blood pressure 126 mm[Hg] Dr. Kaitlyn Condon Work Phone: [facility] Work Phone: 02-02-2022 07:19-0400 Body height 149.[address] Kaitlyn Condon Work Phone: [facility] Work Phone: 02-02-2022 07:19-0400 Body mass index (BMI) [Ratio] 38.7 kg/m2 Dr. Kaitlyn Condon Work Phone: [facility] Work Phone: 02-02-2022 07:19-0400 Body weight 87.[address] Kaitlyn Condon Work Phone: [facility] Work Phone: 12-11-2021 13:42-0400 Body mass index (BMI) [Ratio] 39.4 kg/m2 Dr. Kaitlyn Condon Work Phone: [facility] Work Phone: 12-11-2021 13:42-0400 Body temperature 98 [degF] Dr. Kaitlyn Condon Work Phone: [facility] Work Phone: 12-11-2021 13:42-0400 Body weight 88.[address] Kaitlyn Condon Work Phone: [facility] Work Phone: 12-11-2021 13:42-0400 Diastolic blood pressure 79 mm[Hg] Dr. Kaitlyn Condon Work Phone: [facility] Work Phone: 12-11-2021 13:42-0400 Heart rate 77 /min Dr. Kaitlyn Condon Work Phone: [facility] Work Phone: 12-11-2021 13:42-0400 Respiratory rate 18 /min Dr. Kaitlyn Condon Work Phone: [facility] Work Phone: 12-11-2021 13:42-0400 SaO2% (BldA) [Mass fraction] 97 % Dr. Kaitlyn Condon Work Phone: [facility] Work Phone: 12-11-2021 13:42-0400 Systolic blood pressure 148 mm[Hg] Dr. Kaitlyn Condon Work Phone: [facility] Work Phone: 12-11-2021 13:42-0400 Body height 149.[address] Kaitlyn Condon Work Phone: [facility] Work Phone: 12-11-2021 13:42-0400 Body mass index (BMI) [Ratio] 39.4 kg/m2 Dr. Kaitlyn Condon Work Phone: [facility] Work Phone: 12-11-2021 13:42-0400 Body temperature 98 [degF] Dr. Kaitlyn Condon Work Phone: [facility] Work Phone: 12-11-2021 13:42-0400 Body weight 88.[address] Kaitlyn Condon Work Phone: [facility] Work Phone: 12-11-2021 13:42-0400 Diastolic blood pressure 79 mm[Hg] Dr. Kaitlyn Condon Work Phone: [facility] Work Phone: 12-11-2021 13:42-0400 Heart rate 77 /min Dr. Kaitlyn Condon Work Phone: [facility] Work Phone: 12-11-2021 13:42-0400 Respiratory rate 18 /min Dr. Kaitlyn Condon Work Phone: [facility] Work Phone: 12-11-2021 13:42-0400 SaO2% (BldA) [Mass fraction] 97 % Dr. Kaitlyn Condon Work Phone: [facility] Work Phone: 12-11-2021 13:42-0400 Systolic blood pressure 148 mm[Hg] Dr. Kaitlyn Condon Work Phone: [facility] Work Phone: 12-07-2021 08:24-0400 Body mass index (BMI) [Ratio] 39.4 kg/m2 Dr. Kaitlyn Condon Work Phone: [facility] Work Phone: 12-07-2021 08:24-0400 Body weight 88.[address] Kaitlyn Condon Work Phone: [facility] Work Phone: 12-07-2021 08:24-0400 Diastolic blood pressure 68 mm[Hg] Dr. Kaitlyn Condon Work Phone: [facility] Work Phone: 12-07-2021 08:24-0400 Heart rate 82 /min Dr. Kaitlyn Condon Work Phone: [facility] Work Phone: 12-07-2021 08:24-0400 Respiratory rate 18 /min Dr. Kaitlyn Condon Work Phone: [facility] Work Phone: 12-07-2021 08:24-0400 SaO2% (BldA) [Mass fraction] 95 % Dr. Kaitlyn Condon Work Phone: [facility] Work Phone: 12-07-2021 08:24-0400 Systolic blood pressure 138 mm[Hg] Dr. Kaitlyn Condon Work Phone: [facility] Work Phone: 12-07-2021 08:24-0400 Body mass index (BMI) [Ratio] 39.4 kg/m2 Dr. Kaitlyn Condon Work Phone: [facility] Work Phone: 12-07-2021 08:24-0400 Body weight 88.[address] Kaitlyn Condon Work Phone: [facility] Work Phone: 12-07-2021 08:24-0400 Diastolic blood pressure 68 mm[Hg] Dr. Kaitlyn Condon Work Phone: [facility] Work Phone: 12-07-2021 08:24-0400 Heart rate 82 /min Dr. Kaitlyn Condon Work Phone: [facility] Work Phone: 12-07-2021 08:24-0400 Respiratory rate 18 /min Dr. Kaitlyn Condon Work Phone: [facility] Work Phone: 12-07-2021 08:24-0400 SaO2% (BldA) [Mass fraction] 95 % Dr. Kaitlyn Condon Work Phone: [facility] Work Phone: 12-07-2021 08:24-0400 Systolic blood pressure 138 mm[Hg] Dr. Kaitlyn Condon Work Phone: [facility] Work Phone: Encounters Encounter Date Encounter Type Care Provider Facility Start: 06-20-2025 End: 06-20-2025 ambulatory Kaitlyn Condon Facility:[facility] Start: 06-11-2025 End: 06-11-2025 ambulatory ARTHUR LUND Facility:[facility] Start: 05-22-2025 ambulatory Kaitlyn Condon [facility] :[facility] Start: 05-21-2025 End: 05-25-2025 ambulatory ARTHUR HERNANDEZCarter Facility:[facility] Start: 05-14-2025 End: 05-14-2025 Dr. Kaitlyn Condon MD -[facility] Work Phone: Start: 05-14-2025 End: 05-14-[address] Kaitlyn Condon MD Work Phone: -[facility] Start: 04-23-2025 End: 04-23-2025 Telephone encounter Arthur Lund MD Work Phone: Otolaryngology Comment on above: Patient Education (P re op/) Start: 04-23-2025 End: 04-23-2025 Patient encounter procedure Arthur Lund MD Work Phone: Otolaryngology Comment on above: Thyroid mass (Primar y Dx); Papillary thyroid carcinoma (HCC) Start: 04-23-2025 End: 04-23-2025 ambulatory ARTHUR LUND Facility:[facility] Start: 04-19-2025 End: 04-19-2025 Preprocedural examination done Xr Zoraida Work Phone: [facility] Start: 04-19-2025 End: 04-19-2025 Subsequent hospital visit by physician Xr [facility] Work Phone: Radiology Comment on above: Preoperative examina tion [Z01.818] Start: 04-19-2025 End: 04-19-2025 ambulatory ARTHUR LUND Facility:[facility] Start: 04-19-2025 End: 04-19-2025 Admission to establishment [place] [id number] Work Phone: Pre Anesthesia Start: 04-19-2025 End: 04-19-2025 Anesthesia consultation [place] [id number] Work Phone: Pre Anesthesia Comment on above: Preoperative examina tion (Primary Dx); Class 2 obesity due to excess calories without serious comorbidity with body mass index (BMI) of 36.0 to 36.9 in adult; Microcytic anemia; Acquired hypothyroidism; MYLES (obstructive sleep apnea); Moderate persistent asthma without complication (HCC); Mixed hyperlipidemia; Essential hypertension; Gastroesophageal reflux disease, unspecified whether esophagitis present; Type 2 diabetes mellitus without complication, without long-term current use of insulin (HCC); Leg edema Start: 04-19-2025 End: 04-19-2025 Preprocedural examination done [place] [id number] Work Phone: [facility] Start: 04-19-2025 End: 04-19-2025 ambulatory ARTHUR LUND Facility:[facility] Start: 04-19-2025 Encounter for other preprocedural examination ARTHUR LUND [facility] Start: 04-18-2025 End: 04-18-2025 Telephone encounter Cassy Chan PA-C Work Phone: Pre Anesthesia Comment on above: Appointment Start: 04-10-2025 End: 04-10-2025 Orders Only Jonnathan Milian MD Work Phone: Otolaryngology Comment on above: Papillary thyroid ca rcinoma (HCC) (Primary Dx) Start: 04-09-2025 End: 04-09-2025 Telephone encounter Jonnathan Milian MD Work Phone: [facility] [place] Start: 04-01-2025 End: 04-01-2025 ambulatory UNKNOWN PROVIDER Facility:[facility] Start: 04-01-2025 End: 04-01-2025 Patient encounter procedure Jonnathan Milian MD Work Phone: Otolaryngology Comment on above: Thyroid mass (Primar y Dx) Start: 04-01-2025 End: 04-01-2025 ambulatory JONNATHAN MILIAN Facility:[facility] Start: 03-27-2025 End: 03-27-[address] Kaitlyn Condon MD -[facility] Work Phone: Start: 03-27-2025 End: 03-27-2025 Dr. Kaitlyn Condon MD -[facility] Work Phone: Start: 03-27-2025 End: 03-27-[address] Kaitlyn Condon MD Work Phone: -[facility] Start: 03-27-2025 ambulatory AYDIN DAWSON Facilit y:[facility] Start: 03-27-2025 End: 03-27-2025 Subsequent hospital visit by physician [facility] Work Phone: Radiology Comment on above: Thyroid mass [E07.9] Start: 03-16-2025 End: 03-18-2025 Evaluation and management of inpatient AYDIN DAWSON Facility:[facility] Start: 03-15-2025 End: 03-16-2025 Dr. Seamus Zhou DO -Emergency Departmen t Work Phone: Start: 03-15-2025 End: 03-16-2025 Emergency department patient visit Dr. Kaitlyn Condon MD Work Phone: -Emergency Department Work Phone: Start: 03-14-2025 End: 03-14-[address] Kaitlyn Condon MD Work Phone: -Laboratory Start: 03-14-2025 End: 03-14-[address] Kaitlyn Condon MD -Laboratory Work Phone: Start: 03-14-2025 End: 03-14-2025 Dr. Kaitlyn Condon MD -Laboratory Work Phone: Start: 03-14-2025 End: 03-14-2025 ambulatory Kaitlyn Condon Facility:[facility] Start: 02-18-2025 End: 02-19-2025 Luis Weathers DO -Emergency Departmen t Work Phone: Start: 02-18-2025 End: 02-19-2025 Emergency department patient visit Dr. Kaitlyn Condon MD Work Phone: -Emergency Department Work Phone: Start: 02-16-2025 End: 02-16-2025 Patient encounter procedure Miriam Garcia CLAIMS AGENT RIGHT [facility]-C [facility] Work Phone: Start: 02-16-2025 End: 02-16-2025 Miriam Garcia CLAIMS AGENT [facility]-C -[facility] Work Phone: Start: 02-16-2025 End: 02-16-[address] Kaitlyn Condon MD Work Phone: -[facility] Start: 02-16-2025 End: 02-16-2025 ambulatory Kaitlyn Condon Facility:[facility] Start: 02-05-2025 End: 02-05-[address] Kaitlyn Condon MD Work Phone: -Outpatient Breast Imaging Start: 02-05-2025 End: 02-05-[address] Kaitlyn Condon MD -Outpatient Breast Imaging Work Phone: Start: 02-05-2025 End: 02-05-2025 Dr. Kaitlyn Condno MD -Outpatient Breast Imaging Work Phone: Start: 02-05-2025 End: 02-05-2025 ambulatory Kaitlyn Condon Facility:[facility] Start: 01-29-2025 End: 01-29-[address] Kaitlyn Condon MD Work Phone: [facility] Work Phone: Start: 01-29-2025 End: 01-29-[address] Kaitlyn Condon MD -Laboratory Work Phone: Start: 01-29-2025 End: 01-29-2025 Dr. Kaitlyn Condon MD -Laboratory Work Phone: Start: 01-29-2025 End: 01-29-2025 ambulatory Kaitlynbraeden Condon Facility:[facility] Start: 12-19-2024 End: 12-19-[address] Kaitlyn Condon MD -[facility] Work Phone: Start: 12-19-2024 End: 12-19-2024 ambulatory Kaitlyn Condon Facility:[facility] Start: 11-28-2024 End: 11-28-[address] Trevon Vee MD -[facility] Work Phone: Start: 11-28-2024 End: 11-28-2024 ambulatory Kaitlynbraeden Condon Facility:[facility] Start: 10-09-2024 Non-patient / Non-visit Dr. Veronica Vee MD -[facility] Start: 10-09-2024 End: 10-09-2024 Admission to same day surgery center Dr. Trevon Vee MD -Endoscopy Work Phone: Start: 10-09-2024 End: 10-09-2024 ambulatory Kaitlyn Condon Facility:[facility] Start: 09-05-2024 End: 09-05-2024 ambulatory Kaitlyn Condon Facility:[facility] Start: 08-30-2024 End: 08-30-2024 ambulatory Kaitlynbraeden Codnon Facility:[facility] Start: 08-28-2024 End: 08-28-2024 ambulatory Kaitlynbraeden Condon Facility:[facility] Start: 08-22-2024 End: 08-22-2024 ambulatory Kaitlyn Roseanna [facility] Start: 08-22-2024 End: 08-22-2024 ambulatory [facility] Facility:[facility] Start: 07-03-2024 End: 07-03-2024 Emergency department patient visit Pierre Haley Facility:[facility] Start: 02-22-2023 End: 02-22-[address] Kaitlyn Condon Work Phone: [facility] Work Phone: Start: 02-22-2023 End: 02-22-[address] Kaitlyn Condon Work Phone: [facility]-Laboratory Work Phone: Start: 12-31-2022 End: 12-31-[address] Kaitlyn Condon Work Phone: [facility] Work Phone: Start: 12-31-2022 End: 12-31-[address] Kaitlyn Condon Work Phone: [facility]-Laboratory Start: 12-30-2022 End: 12-30-[address] Kaitlyn Condon Work Phone: [facility]-Laboratory, Specimen Start: 12-30-2022 End: 12-30-[address] Kaitlyn Condon Work Phone: [facility] Start: 06-28-2022 End: 06-28-[address] Kaitlyn Condon Work Phone: [facility] Work Phone: Start: 06-28-2022 End: 06-28-[address] Kaitlyn Condon Work Phone: [facility]-Outpatient Pavilion Ultrasound Start: 06-24-2022 End: 06-24-[address] Kaitlyn Condon Work Phone: [facility] Work Phone: Start: 06-24-2022 End: 06-24-[address] Kaitlyn Condon Work Phone: [facility]-Outpatient Breast Imaging Start: 06-09-2022 End: 06-09-[address] Kaitlyn Condon Work Phone: [facility]-Laboratory Start: 06-09-2022 End: 06-09-[address] Kaitlyn Condon Work Phone: [facility] Start: 02-02-2022 Non-patient / Non-visit Dr. Kendal Condon Work Phone: [facility] Start: 02-02-2022 End: 02-02-2022 Admission to same day surgery center Dr. Kaitlyn Condon Work Phone: [facility]-Endoscopy Start: 01-05-2022 Non-patient / Non-visit Dr. Kendal Condon Work Phone: [facility] Start: 01-05-2022 End: 01-05-[address] Kaitlyn Condon Work Phone: [facility]-Cardiovascular Services Start: 12-30-2021 End: 12-30-[address] Kaitlyn Condon Work Phone: [facility]-Pulmonary Services/Neurology Start: 12-30-2021 Non-patient / Non-visit Dr. Kendal Condon Work Phone: [facility] Start: 12-11-2021 End: 12-11-[address] Kaitlyn Condon Work Phone: [facility] Start: 12-07-2021 End: 12-07-[address] Kaitlyn Condon Work Phone: [facility] Start: 11-07-2020 End: 11-07-2020 [facility] Start: 10-17-2020 End: 10-17-2020 [facility] encounter procedure [facility] Start: 06-05-2018 Ambulatory MERLIN ELOISA Facility :[facility] Start: 10-05-2017 End: 10-05-2017 [facility] Procedures Date Procedure Procedure Detail Performing Clinician Start: 04-19-2025 Radiologic exam ches t 2 views Hemalatha Tellez PA-C Work Phone: Start: 04-19-2025 Antibody screen ARTHUR LUND Comment on above: Order Comment: Speci men Type: BLOOD SPECIMENOrdering Facility: [facility] Address: [address] [place] [address] Performed By: #### T [id number] ####CC [facility] BLOOD BANKCLNJ [id number] [place] [address] [place] Start: 04-19-2025 Ecg routine ecg w/le ast 12 lds i&r only Hemalatha Tellez PA-C Work Phone: Start: 04-01-2025 US NECK (POC) HNI USE ONLY Jonnathan Milian MD Work Phone: Start: 03-15-2025 Plain chest X-ray Dr. Suresh Condon MD Work Phone: Start: 03-15-2025 Urine microscopy: red cells Dr. Kaitlyn Condon MD Work Phone: Start: 03-15-2025 Urnls dip stick/tabl et reagent auto microscopy Dr. Kaitlyn Condon MD Work Phone: Start: 03-15-2025 Blood count smear mc rscp w/mnl difrntl wbc count Dr. Kaitlyn Condon MD Work Phone: Start: 03-15-[address] Kaitlyn Condon MD Work Phone: Start: 03-15-2025 Mean corpuscular hem oglobin concentration determination Dr. Kaitlyn Condon MD Work Phone: Start: 03-15-2025 Nucleated red blood cell count procedure Dr. Kaitlyn Condon MD Work Phone: Start: 03-15-2025 Platelet mean volume determination Dr. Kaitlyn Condon MD Work Phone: Start: 03-15-2025 CT of soft tissues o f neck with contrast Dr. Kaitlyn Condon MD Work Phone: Start: 03-15-[address] Kaitlyn Condon MD Work Phone: Start: 03-15-2025 SARS-CoV-2, Influenz a & RSV (PCR) Dr. Kaitlyn Condon MD Work Phone: Start: 03-15-[address] Kaitlyn Condon MD Work Phone: Start: 03-15-2025 Dr. Kaitlyn Condon MD Work Phone: Start: 03-14-[address] Kaitlyn Condon MD Work Phone: Start: 03-14-2025 Urine microscopy: red cells Dr. Kaitlyn Condon MD Work Phone: Start: 03-14-2025 Urnls dip stick/tabl et reagent auto microscopy Dr. Kaitlyn Condon MD Work Phone: Start: 02-19-2025 Urine microscopy: red cells Dr. Kaitlyn Condon MD Work Phone: Start: 02-19-2025 Urnls dip stick/tabl et reagent auto microscopy Dr. Kaitlyn Condon MD Work Phone: Start: 02-19-2025 X-ray of chest, PA a nd lateral views Dr. Kaitlyn Condon MD Work Phone: Start: 02-18-2025 Blood count smear mc rscp w/mnl difrntl wbc count Dr. Kaitlyn Condon MD Work Phone: Start: 02-18-[address] Kaitlyn Condon MD Work Phone: Start: 02-18-2025 Mean corpuscular hem oglobin concentration determination Dr. Kaitlyn Condon MD Work Phone: Start: 02-18-2025 Nucleated red blood cell count procedure Dr. Kaitlyn Condon MD Work Phone: Start: 02-18-2025 Platelet mean volume determination Dr. Kaitlyn Condon MD Work Phone: Start: 02-18-2025 Tri[address]ol lipa se measurement Dr. Kaitlyn Condon MD Work Phone: Start: 02-16-[address] Kaitlyn Condon MD Work Phone: Start: 02-05-2025 Screening mammography Annika Condon MD Work Phone: Start: 02-05-2025 Dual energy X-ray absorptiometry Dr. Kaitlyn Condon MD Work Phone: Start: 01-29-2025 Blood count smear mc rscp w/mnl difrntl wbc count Dr. Kaitlyn Condon MD Work Phone: Start: 01-29-2025 Mean corpuscular hem oglobin concentration determination Dr. Kaitlyn Condon MD Work Phone: Start: 01-29-2025 Nucleated red blood cell count procedure Dr. Kaitlyn Condon MD Work Phone: Start: 01-29-2025 Platelet mean volume determination Dr. Kaitlyn Condon MD Work Phone: Start: 01-29-2025 Total cholesterol:HD L ratio measurement Dr. Kaitlyn Condon MD Work Phone: Start: 01-29-2025 Vitamin D, 25-hydrox y measurement Dr. Kaitlyn Condno MD Work Phone: Comment on above: Vitamin D StatusDefi ciency: <20 ng/mL (50nmol/L)Insufficiency: 20-30 ng/mL (50-75 nmol/L)Sufficiency: 30-100 ng/mL (75-250 nmol/L)Toxicity: >100 ng/mL (>250 nmol/L) Start: 12-30-[address] Kaitlyn Condon Work Phone: Start: 06-28-[address] Kaitlyn Condon Work Phone: Start: 06-24-2022 Screening mammography Annika Condon Work Phone: Start: 02-02-[address] Kaitlyn Condon Work Phone: Start: 01-05-2022 Cardiovascular stres s test using pharmacologic stress agent Dr. Kaitlyn Condon Work Phone: Start: 12-07-[address] Kaitlyn Condon Work Phone: Urine culture [facility] Work Phone: Urine culture [facility] Work Phone: Plan of Treatment Date Care Activity Detail Author Start: 09-17-2025 Hemoglobin A1c measurement HbA1C [facility] Start: 05-06-2025 End: 05-06-2025 Patient encounter procedure 05/06/2025 1:00 PM EDT Office Visit Endocrinology [address] [place] [address] Nithya Melendez MD [address] [place] [address] Thyroiditis concern, schedule at [facility] Endocrinology Comment on above: Thyroiditis concern, schedule at [facility] Start: 04-23-2025 End: 07-23-2025 Basic metabolic 2000 panel - Serum or Plasma BASIC METABOLIC PANEL Lab Routine Thyroid mass Expected: 04/23/2025, Expires: 07/23/2025 [facility] Comment on above: Expected: 04/23/2025 , Expires: 07/23/2025 Start: 04-23-2025 End: 07-23-2025 CBC panel - Blood by Automated count COMPLETE BLOOD COUNT Lab Routine Thyroid mass Expected: 04/23/2025, Expires: 07/23/2025 [facility] Comment on above: Expected: 04/23/2025 , Expires: 07/23/2025 Start: 04-23-2025 End: 04-23-2025 Patient encounter procedure 04/23/2025 1:00 PM EDT Office Visit Otolaryngology [address] [place] [address] Arthur Lund MD [address] [facility] [address] [place], [place] [id number] Thyroid..ok per Dr. Lund Otolaryngology Comment on above: Thyroid..ok per Dr. Lund Start: 04-19-2025 End: 07-19-2025 CONFIRM BLOOD TYPE [facility] Work Phone: Comment on above: Expected: 04/19/2025 , Expires: 07/19/2025 Start: 04-19-2025 End: 04-19-2025 Anesthesia consultation 04/19/2025 10:30 AM EDT PAT Pre Anesthesia [address] [place] [address] 2, Pacc [place] [address] [place] [address] PACC Pre Anesthesia Comment on above: PACC Start: 04-15-2025 Influenza vaccination Influenza Vacc ine (#1) [facility] Start: 04-10-2025 End: 07-10-2025 CBC panel - Blood by Automated count COMPLETE BLOOD COUNT Lab Routine Papillary thyroid carcinoma (HCC) Expected: 04/10/2025, Expires: 07/10/2025 [facility] Comment on above: Expected: 04/10/2025 , Expires: 07/10/2025 Start: 04-10-2025 End: 07-10-2025 Comprehensive metabolic 2000 panel - Serum or Plasma COMPREHENSIVE METABOLIC PANEL Lab Routine Papillary thyroid carcinoma (HCC) Expected: 04/10/2025, Expires: 07/10/2025 [facility] Work Phone: Comment on above: Expected: 04/10/2025 , Expires: 07/10/2025 Start: 04-10-2025 End: 07-10-2025 TYPE AND SCREEN,30 DAY TYPE AND SCREEN,30 DAY Blood Bank Routine Papillary thyroid carcinoma (HCC) Expected: 04/10/2025, Expires: 07/10/2025 [facility] Comment on above: Expected: 04/10/2025 , Expires: 07/10/2025 Start: 04-01-2025 End: 04-01-2025 Admission to same day surgery center 04/01/2025 10:00 AM EDT - 04/01/2025 11:00 AM EDT Surgery Angio [address] [place] [address] Mata Oliveira MD [address] [place] [address] BIOPSY THYROID Angio Comment on above: BIOPSY THYROID Start: 04-01-2025 Subsequent hospital visit by physician 04/01/2025 10:00 AM EDT Hospital Encounter Angio [address] [place] [address] Mata Oliveira MD [address] [place], [place] [id number] Thyroid mass [E07.9] Angio Comment on above: Thyroid mass [E07.9] Start: 04-01-2025 End: 04-01-2025 Biopsy thyroid percutaneous core needle [facility] ANGIO HB6 Start: 04-01-2025 End: 04-01-2025 Patient encounter procedure 04/01/2025 8:00 AM EDT Office Visit Otolaryngology [address] [id number] Jonnathan Milian MD [address] [place] [address] Thyroid mass Otolaryngology Comment on above: Thyroid mass Start: 03-15-2025 [facility] Start: 03-15-2025 [facility] Start: 03-15-2025 Bacteria identified in Blood by Culture Blood Culture [facility] Start: 03-15-2025 Bacteria identified in Urine by Culture Urine Culture [facility] Start: 03-15-2025 Blood culture Blood Culture [facility] Start: 02-19-2025 [facility] Start: 02-19-2025 [facility] Start: 02-19-2025 [facility] Start: 02-05-2025 MG Breast - bilatera l Screening [facility] Start: 02-05-2025 DXA Bone [Mass/Area] Bone density [facility] Start: 10-09-2024 Egd transoral biopsy single/multiple EGD BIOPSY SINGLE/MULTIPLE [facility] Start: 10-09-2024 Patient discharge [facility] Start: 08-15-2024 Advance Directive Discussion Advance Directive Discussion [facility] Start: 08-15-2024 Medicare Advantage Annual Wellness Visit Medicare Advantage Annual Wellness Visit [facility] Start: 02-02-2022 Patient discharge [facility] Work Phone: Start: 12-07-2021 Patient referral [facility] Work Phone: Start: 2021 RSV Vaccine (1 - 1-dose 75+ series) RSV Vaccine (1 - 1-dose 75+ series) [facility] Start: 03-10-2021 Hepatitis B screening Urine Albumin:Creatinine Ratio [facility] Start: 03-10-2021 Hepatitis B surface antibody level LDL Cholesterol [facility] Start: 01-28-2021 Diabetic foot examination Diabetic Foot Exam [facility] Start: 07-27-2020 Urine microalbumin profile DTaP,Tdap,Td Vaccine (3 - Td or Tdap) [facility] Start: 05-01-2020 Glaucoma screening Dilated Retinal E xam [facility] Start: 09-21-2010 Shingrix Vaccine (2 of 3) Shingrix Vaccine (2 of 3) [facility] Start: 1964 Annual PCP Team Chronic Disease Visit Annual PCP Team Chronic Disease Visit [facility] Start: 1964 Anxiety Screening Anxiety Screening [facility] Start: 1964 Depression Screening Depression Scre ening [facility] Colonoscopy [facility] Work Phone: ECG COMPLETE ECG COMPLETE ECG Routine Preoperative examination 04/19/2025 10:09 AM EDT [facility] End: 04-23-2026 ECG COMPLETE ECG COMPLETE ECG Routine Thyroid mass 1 Occurrences starting 04/23/2025 until 04/23/2026 [facility] Comment on above: 1 Occurrences starti ng 04/23/2025 until 04/23/2026 Hemoglobin A1c/Hemoglobin.total in Blood [facility] Work Phone: Patient Education [facility] Work Phone: Patient referral [facility] Work Phone: Thyroidectomy total/complete THYROIDECTOMY TOTAL Papillary thyroid carcinoma (HCC) [facility] Thyroidectomy total/complete THYROIDECTOMY TOTAL Thyroid mass [facility] Urine culture [facility] US Thyroid gland US THYROID/PARA THYROID Radiology Routine Thyroid mass 03/27/2025 7:54 AM EDT [facility] Work Phone: End: 05-23-2026 XR Chest PA and Lateral XR CHEST 2V FRONTAL/LAT Radiology Routine Thyroid mass 1 Occurrences starting 04/23/2025 until 05/23/2026 [facility] Work Phone: Comment on above: 1 Occurrences starti ng 04/23/2025 until 05/23/2026 [facility] Immunizations Immunization Date Immunization Notes Care Provider [facility] 05-24-2024 Seasonal trivalent influenza vaccine, adjuvanted, preservative free Dr. Kaitlyn Condon MD Work Phone: [facility] 05-24-2024 Dr. Kaitlyn tubbs MD Work Phone: [facility] 05-24-2024 influenza virus vacc ine, unspecified formulation Us 2 Work Phone: [facility] 05-01-2020 influenza, injectabl e, quadrivalent, preservative free Dr. Kaitlyn Condon MD Work Phone: [facility] 05-01-2020 influenza, seasonal, injectable Dr. Kaitlyn Condon Work Phone: [facility] 05-01-2020 Fluad Quad [id number](65yr up)(PF) 60 mcg (15 mcg x 4)/0.5mL IM syringe (flu vac Dr. Kaitlyn Condon Work Phone: [facility] Work Phone: 05-22-2019 influenza, high dose seasonal, preservative-free Us 2 Work Phone: [facility] 04-30-[address] Kaitlyn Condon Work Phone: [facility] 04-30-2019 Dr. Kaitlyn tubbs MD Work Phone: [facility] 04-21-2018 influenza, high dose seasonal, preservative-free Us 2 Work Phone: [facility] 04-20-2017 influenza, high dose seasonal, preservative-free Us 2 Work Phone: [facility] 09-13-2016 pneumococcal polysaccharide vaccine, 23 valent Us 2 Work Phone: [facility] 05-07-2016 influenza, high dose seasonal, preservative-free Us 2 Work Phone: [facility] 05-05-2015 influenza, high dose seasonal, preservative-free Us 2 Work Phone: [facility] 12-17-2014 pneumococcal conjuga te vaccine, 13 valent Us 2 Work Phone: [facility] 06-06-2014 influenza, seasonal, injectable Us 2 Work Phone: [facility] 05-29-2013 influenza virus vacc ine, unspecified formulation Us 2 Work Phone: [facility] 05-20-2012 influenza virus vacc ine, unspecified formulation Us 2 Work Phone: [facility] 05-21-2011 influenza virus vacc ine, unspecified formulation Us 2 Work Phone: [facility] 07-27-2010 zoster vaccine, live Us 2 Work Phone: [facility] 09-16-2009 tetanus toxoid, redu allison diphtheria toxoid, and acellular pertussis vaccine, adsorbed Us 2 Work Phone: [facility] 06-04-2009 influenza virus vacc ine, unspecified formulation Us 2 Work Phone: [facility] 09-11-2008 pneumococcal polysaccharide vaccine, 23 valent Us 2 Work Phone: [facility] 06-20-2008 influenza virus vacc ine, unspecified formulation Us 2 Work Phone: [facility] 06-15-2006 influenza virus vacc ine, unspecified formulation Us 2 Work Phone: [facility] Payers Date Payer Category Payer Self-pay [id number] 2019 Medicare (Managed Care) ABBI THOMASON [id number] 2019 Medicare [id number] 2011 Unknown [id number] 1945 Unknown [id number]. 2.651 1945 Unknown [id number] 2.16.840.1.895501.3.579. 2.651 Unknown [id number] 2.16.840.1.159995.3.579. 2.462 Unknown [id number] 2.16.840.1.342729.3.579. 2.462 Unknown [id number] 2.16.840.1.410365.3.579. 2.462 Unknown [id number] 2..840.1.864225.3.579. 2.462 Unknown [id number] 2..840.1.155004.3.579. 2.462 Unknown [id number] 2..840.1.704964.3.579. 2.462 Unknown [id number] 2.840.1.619550.3.579. 2.462 Unknown [id number] 2.840.1.856454.3.579. 2.462 Unknown [id number] 2.840.1.597682.3.579. 2.462 Unknown [id number] 2..840.1.396845.3.579. 2.462 Unknown [id number] 2.840.1.455307.3.579. 2.462 Unknown [id number] .840.1.814856.3.579. 2.462 Unknown [id number] .840.1.947072.3.579. 2.462 Unknown [id number] 2.16.840.1.898945.3.579. 2.462 Unknown [id number] 2..840.1.770845.3.579. 2.462 Unknown [id number] 2.16.840.1.627696.3.579. 2.462 Unknown [id number] 2.16.840.1.000615.3.579. 2.462 Unknown [id number] 2.16.840.1.563264.3.579. 2.462 Unknown [id number] 2.16.840.1.061518.3.579. 2.462 Unknown [id number] 2.16.840.1.589028.3.579. 2.462 Unknown [id number] 2.16.840.1.271372.3.579. 2.462 Social History Date Type Detail Facility Start: 12-11-2021 End: 12-30-2022 Tobacco smoking status CTIS Unknown if ever smoked [facility] Start: 03-19-2020 None [facility] Start: 03-19-2020 Spouse/ Signif icant Other [facility] Start: 1945 Sex Assigned At Female W [facility] Start: 10-04-2024 End: 03-15-2025 Tobacco smoking status CTIS Never smoked tobacco (finding) [facility] Start: 07-27-2017 Tobacco use and exposure Smokeless tobacco non-user [facility] Start: 03-12-2020 End: 04-23-2025 Alcoholic beverage intake Current non-drinker of alcohol (finding) [facility] Start: 03-18-2025 End: 04-18-2025 History of Social function [facility] Start: 03-18-2025 End: 04-18-2025 [facility] [employer] [facility] Has the [employer], or [employer] threatened to shut off services in your home in past 12Mo No [facility] Start: 07-16-2012 PHQ2 Score 0 [facility] (I/We) worried wheth er (my/our) food would run out before (I/we) got money to buy more. Never true [facility] Start: 1945 Sex assigned at Not on file C [facility] How often to you hav e a drink containing alcohol? Never [facility] Medical Equipment Procedure Code Equipment Code Equipment Origin al Text Equipment Identifier Dates Total cholecystectomy with exploration of common bile duct CLIP,HEMOLOCK [employer] FDA Start: 03-24-2020 Total cholecystectomy with exploration of common bile duct CLIP,HEMOLOCK MED WECK FDA Start: 03-24-2020 Total cholecystectomy with exploration of common bile duct SURGICEL, POWDER 3GR FDA Start: 03-24-2020 Total cholecystectomy with exploration of common bile duct CLIP,HEMOLOCK ALONSO WECK FDA Start: 03-24-2020 Total cholecystectomy with exploration of common bile duct CLIP,HEMOLOCALEB GUPTA WECK FDA Start: 03-24-2020 Total cholecystectomy with exploration of common bile duct SURGICEL, POWDER 3GR FDA Start: 03-24-2020 Total cholecystectomy with exploration of common bile duct CLIP,HEMOLOCALEB GUPTA WECK FDA Start: 03-24-2020 Total cholecystectomy with exploration of common bile duct CLIP,HEMOLOCALEB GUPTA WECK FDA Start: 03-24-2020 Total cholecystectomy with exploration of common bile duct SURGICEL, POWDER 3GR FDA Start: 03-24-2020 Total cholecystectomy with exploration of common bile duct CLIP,HEMOLOCALEB GUPTA WECK FDA Start: 03-24-2020 Total cholecystectomy with exploration of common bile duct CLIP,HEMIRINA GUPTA WECK FDA Start: 03-24-2020 Total cholecystectomy with exploration of common bile duct SURGICEL, POWDER 3GR FDA Start: 03-24-2020 Total cholecystectomy with exploration of common bile duct CLIP,HEMIRINA COTECALEB FDA Start: 03-24-2020 Total cholecystectomy with exploration of common bile duct CLIP,HEMIRINA GUPTA WECALEB FDA Start: 03-24-2020 Total cholecystectomy with exploration of common bile duct SURGICEL, POWDER 3GR FDA Start: 03-24-2020 Total cholecystectomy with exploration of common bile duct CLIP,HEMIRINA GUPTA WECK FDA Start: 03-24-2020 Total cholecystectomy with exploration of common bile duct CLIP,HEMIRINA GUPTA WECK FDA Start: 03-24-2020 Total cholecystectomy with exploration of common bile duct SURGICEL, POWDER 3GR FDA Start: 03-24-2020 Total cholecystectomy with exploration of common bile duct CLIP,HEMOLOCALEB GUPTA WECK FDA Start: 03-24-2020 Total cholecystectomy with exploration of common bile duct CLIP,HEMOLOCALEB GUPTA WECK FDA Start: 03-24-2020 Total cholecystectomy with exploration of common bile duct SURGICEL, POWDER 3GR FDA Start: 03-24-2020 Total cholecystectomy with exploration of common bile duct CLIP,HEMOLOCALEB ALONSO WECK FDA Start: 03-24-2020 Total cholecystectomy with exploration of common bile duct CLIP,HEMOLOCALEB ALONSO WECK FDA Start: 03-24-2020 Total cholecystectomy with exploration of common bile duct SURGICEL, POWDER 3GR FDA Start: 03-24-2020 Total cholecystectomy with exploration of common bile duct CLIP,HEMOLOCALEB ALONSO WECK FDA Start: 03-24-2020 Total cholecystectomy with exploration of common bile duct CLIP,HEMOLOCALEB GUPTA WECK FDA Start: 03-24-2020 Total cholecystectomy with exploration of common bile duct SURGICEL, POWDER 3GR FDA Start: 03-24-2020 Total cholecystectomy with exploration of common bile duct CLIP,HEMOLOCALEB ALONSO WECK FDA Start: 03-24-2020 Total cholecystectomy with exploration of common bile duct CLIP,HEMOLOCALEB GUPTA WECK FDA Start: 03-24-2020 Total cholecystectomy with exploration of common bile duct SURGICEL, POWDER 3GR FDA Start: 03-24-2020 Total cholecystectomy with exploration of common bile duct CLIP,HEMOLOCALEB ALONSO WECALEB FDA Start: 03-24-2020 Total cholecystectomy with exploration of common bile duct CLIP,ROSALINACALEB ALONSO ANDREAS FDA Start: 03-24-2020 Total cholecystectomy with exploration of common bile duct SURGICEL, POWDER 3GR FDA Start: 03-24-2020 Total cholecystectomy with exploration of common bile duct CLIP,SANTHOSH GUPTA ANDREAS FDA Start: 03-24-2020 Total cholecystectomy with exploration of common bile duct CLIP,HEMJAMARCALEB ALONSO ANDREAS FDA Start: 03-24-2020 Total cholecystectomy with exploration of common bile duct SURGICEL, POWDER 3GR FDA Start: 03-24-2020 Total cholecystectomy with exploration of common bile duct CLIP,SANTHOSH GUPTA ANDREAS FDA Start: 03-24-2020 Total cholecystectomy with exploration of common bile duct CLIP,HEMJAMARCALEB ALONSO WECK FDA Start: 03-24-2020 Total cholecystectomy with exploration of common bile duct SURGICEL, POWDER 3GR FDA Start: 03-24-2020 Total cholecystectomy with exploration of common bile duct CLIP,HEMOLOCALEB GUPTA WECK FDA Start: 03-24-2020 Total cholecystectomy with exploration of common bile duct CLIP,HEMOLOCALEB ALONSO WECK FDA Start: 03-24-2020 Total cholecystectomy with exploration of common bile duct SURGICEL, POWDER 3GR FDA Start: 03-24-2020 Total cholecystectomy with exploration of common bile duct CLIP,HEMIRINA JOHNS FDA Start: 03-24-2020 Total cholecystectomy with exploration of common bile duct CLIP,HEMOLOCALEB ALONSO ANDREAS FDA Start: 03-24-2020 Total cholecystectomy with exploration of common bile duct SURGICEL, POWDER 3GR FDA Start: 03-24-2020 Total cholecystectomy with exploration of common bile duct CLIP,SANTHOSH JOHNS FDA Start: 03-24-2020 Total cholecystectomy with exploration of common bile duct CLIP,HEMOLOCK MED ANDREAS FDA Start: 03-24-2020 Total cholecystectomy with exploration of common bile duct SURGICEL, POWDER 3GR FDA Start: 03-24-2020 Total cholecystectomy with exploration of common bile duct FDA Start: 03-24-2020 Total cholecystectomy with exploration of common bile duct FDA Start: 03-24-2020 Total cholecystectomy with exploration of common bile duct FDA Start: 03-24-2020 Blood Sugar Diagnostic (Accu-Chek Mimi Plus Test Strp) strip Start: 12-07-2021 Lancets (Accu-Ch ek Multiclix Lancet) misc Start: 07-02-2020 Lancets (Accu-Ch ek Softclix Lancets) misc Start: 12-07-2021 Blood Sugar Diagnostic (Accu-Chek Mimi Plus Test Strp) strip Start: 07-02-2020 End: 07-02-2020 Blood Sugar Diagnostic (Accu-Chek Mimi Plus Test Strp) strip Start: 07-02-2020 End: 10-09-2020 Blood Sugar Diagnostic (Accu-Chek Mimi Plus Test Strp) strip Start: 10-09-2020 End: 12-07-2021 Lancets (Accu-Ch ek Softclix Lancets) misc Start: 07-02-2020 End: 07-02-2020 Lancets (Accu-Ch ek Softclix Lancets) misc Start: 07-02-2020 End: 10-09-2020 Lancets (Accu-Ch ek Softclix Lancets) misc Start: 10-09-2020 End: 12-07-2021 Blood Sugar Diagnostic (Accu-Chek Mimi Plus Test Strp) strip Start: 12-07-2021 Lancets (Accu-Ch ek Multiclix Lancet) misc Start: 07-02-2020 Lancets (Accu-Ch ek Softclix Lancets) misc Start: 12-07-2021 Blood Sugar Diagnostic (Accu-Chek Mimi Plus Test Strp) strip Start: 07-02-2020 End: 07-02-2020 Blood Sugar Diagnostic (Accu-Chek Mimi Plus Test Strp) strip Start: 07-02-2020 End: 10-09-2020 Blood Sugar Diagnostic (Accu-Chek Mimi Plus Test Strp) strip Start: 10-09-2020 End: 12-07-2021 Lancets (Accu-Ch ek Softclix Lancets) misc Start: 07-02-2020 End: 07-02-2020 Lancets (Accu-Ch ek Softclix Lancets) misc Start: 07-02-2020 End: 10-09-2020 Lancets (Accu-Ch ek Softclix Lancets) misc Start: 10-09-2020 End: 12-07-2021 Blood Sugar Diagnostic (Accu-Chek Mimi Plus Test Strp) strip Start: 12-07-2021 Lancets (Accu-Ch ek Multiclix Lancet) misc Start: 07-02-2020 Lancets (Accu-Ch ek Softclix Lancets) misc Start: 12-07-2021 Blood Sugar Diagnostic (Accu-Chek Mimi Plus Test Strp) strip Start: 07-02-2020 End: 07-02-2020 Blood Sugar Diagnostic (Accu-Chek Mimi Plus Test Strp) strip Start: 07-02-2020 End: 10-09-2020 Blood Sugar Diagnostic (Accu-Chek Mimi Plus Test Strp) strip Start: 10-09-2020 End: 12-07-2021 Lancets (Accu-Ch ek Softclix Lancets) misc Start: 07-02-2020 End: 07-02-2020 Lancets (Accu-Ch ek Softclix Lancets) misc Start: 07-02-2020 End: 10-09-2020 Lancets (Accu-Ch ek Softclix Lancets) misc Start: 10-09-2020 End: 12-07-2021 Blood Sugar Diagnostic (Accu-Chek Mimi Plus Test Strp) strip Start: 12-07-2021 Lancets (Accu-Ch ek Multiclix Lancet) misc Start: 07-02-2020 Lancets (Accu-Ch ek Softclix Lancets) misc Start: 12-07-2021 Blood Sugar Diagnostic (Accu-Chek Mimi Plus Test Strp) strip Start: 07-02-2020 End: 07-02-2020 Blood Sugar Diagnostic (Accu-Chek Mimi Plus Test Strp) strip Start: 07-02-2020 End: 10-09-2020 Blood Sugar Diagnostic (Accu-Chek Mimi Plus Test Strp) strip Start: 10-09-2020 End: 12-07-2021 Lancets (Accu-Ch ek Softclix Lancets) misc Start: 07-02-2020 End: 07-02-2020 Lancets (Accu-Ch ek Softclix Lancets) misc Start: 07-02-2020 End: 10-09-2020 Lancets (Accu-Ch ek Softclix Lancets) misc Start: 10-09-2020 End: 12-07-2021 Blood Sugar Diagnostic (Accu-Chek Mimi Plus Test Strp) strip Start: 06-09-2022 Lancets (Accu-Ch ek Multiclix Lancet) misc Start: 07-02-2020 Lancets (Accu-Ch ek Softclix Lancets) misc Start: 12-07-2021 Blood Sugar Diagnostic (Accu-Chek Mimi Plus Test Strp) strip Start: 07-02-2020 End: 07-02-2020 Blood Sugar Diagnostic (Accu-Chek Mimi Plus Test Strp) strip Start: 12-07-2021 End: 06-09-2022 Blood Sugar Diagnostic (Accu-Chek Mimi Plus Test Strp) strip Start: 07-02-2020 End: 10-09-2020 Blood Sugar Diagnostic (Accu-Chek Mimi Plus Test Strp) strip Start: 10-09-2020 End: 12-07-2021 Lancets (Accu-Ch ek Softclix Lancets) misc Start: 07-02-2020 End: 07-02-2020 Lancets (Accu-Ch ek Softclix Lancets) misc Start: 07-02-2020 End: 10-09-2020 Lancets (Accu-Ch ek Softclix Lancets) misc Start: 10-09-2020 End: 12-07-2021 Blood Sugar Diagnostic (Accu-Chek Mimi Plus Test Strp) strip Start: 06-09-2022 Lancets (Accu-Ch ek Multiclix Lancet) misc Start: 07-02-2020 Lancets (Accu-Ch ek Softclix Lancets) misc Start: 12-07-2021 Blood Sugar Diagnostic (Accu-Chek Mimi Plus Test Strp) strip Start: 07-02-2020 End: 07-02-2020 Blood Sugar Diagnostic (Accu-Chek Mimi Plus Test Strp) strip Start: 12-07-2021 End: 06-09-2022 Blood Sugar Diagnostic (Accu-Chek Mimi Plus Test Strp) strip Start: 07-02-2020 End: 10-09-2020 Blood Sugar Diagnostic (Accu-Chek Mimi Plus Test Strp) strip Start: 10-09-2020 End: 12-07-2021 Lancets (Accu-Ch ek Softclix Lancets) misc Start: 07-02-2020 End: 07-02-2020 Lancets (Accu-Ch ek Softclix Lancets) misc Start: 07-02-2020 End: 10-09-2020 Lancets (Accu-Ch ek Softclix Lancets) misc Start: 10-09-2020 End: 12-07-2021 Blood Sugar Diagnostic (Accu-Chek Mimi Plus Test Strp) strip Start: 06-09-2022 Lancets (Accu-Ch ek Multiclix Lancet) misc Start: 07-02-2020 Lancets (Accu-Ch ek Softclix Lancets) misc Start: 12-07-2021 Blood Sugar Diagnostic (Accu-Chek Mimi Plus Test Strp) strip Start: 07-02-2020 End: 07-02-2020 Blood Sugar Diagnostic (Accu-Chek Mimi Plus Test Strp) strip Start: 12-07-2021 End: 06-09-2022 Blood Sugar Diagnostic (Accu-Chek Mimi Plus Test Strp) strip Start: 07-02-2020 End: 10-09-2020 Blood Sugar Diagnostic (Accu-Chek Mimi Plus Test Strp) strip Start: 10-09-2020 End: 12-07-2021 Lancets (Accu-Ch ek Softclix Lancets) misc Start: 07-02-2020 End: 07-02-2020 Lancets (Accu-Ch ek Softclix Lancets) misc Start: 07-02-2020 End: 10-09-2020 Lancets (Accu-Ch ek Softclix Lancets) misc Start: 10-09-2020 End: 12-07-2021 Blood Sugar Diagnostic (Accu-Chek Mimi Plus Test Strp) strip Start: 06-09-2022 Lancets (Accu-Ch ek Multiclix Lancet) misc Start: 07-02-2020 Lancets (Accu-Ch ek Softclix Lancets) misc Start: 12-07-2021 Blood Sugar Diagnostic (Accu-Chek Mimi Plus Test Strp) strip Start: 07-02-2020 End: 07-02-2020 Blood Sugar Diagnostic (Accu-Chek Mimi Plus Test Strp) strip Start: 12-07-2021 End: 06-09-2022 Blood Sugar Diagnostic (Accu-Chek Mimi Plus Test Strp) strip Start: 07-02-2020 End: 10-09-2020 Blood Sugar Diagnostic (Accu-Chek Mimi Plus Test Strp) strip Start: 10-09-2020 End: 12-07-2021 Lancets (Accu-Ch ek Softclix Lancets) misc Start: 07-02-2020 End: 07-02-2020 Lancets (Accu-Ch ek Softclix Lancets) misc Start: 07-02-2020 End: 10-09-2020 Lancets (Accu-Ch ek Softclix Lancets) misc Start: 10-09-2020 End: 12-07-2021 Blood Sugar Diagnostic (Accu-Chek Guide Test Strips) strip Start: 10-31-2023 Lancets (Accu-Ch ek Multiclix Lancet) misc Start: 07-02-2020 Lancets (Accu-Ch ek Softclix Lancets) misc Start: 07-11-2023 Blood Sugar Diagnostic (Accu-Chek Mimi Plus Test Strp) strip Start: 07-02-2020 End: 07-02-2020 Blood Sugar Diagnostic (Accu-Chek Mimi Plus Test Strp) strip Start: 12-07-2021 End: 06-09-2022 Blood Sugar Diagnostic (Accu-Chek Mimi Plus Test Strp) strip Start: 07-02-2020 End: 10-09-2020 Blood Sugar Diagnostic (Accu-Chek Mimi Plus Test Strp) strip Start: 10-09-2020 End: 12-07-2021 Blood Sugar Diagnostic (Accu-Chek Mimi Plus Test Strp) strip Start: 06-09-2022 End: 07-06-2023 Blood Sugar Diagnostic (Accu-Chek Mimi Plus Test Strp) strip Start: 07-06-2023 End: 10-17-2023 Blood Sugar Diagnostic (Accu-Chek Guide Test Strips) strip Start: 10-17-2023 End: 10-31-2023 Lancets (Accu-Ch ek Softclix Lancets) misc Start: 07-02-2020 End: 07-02-2020 Lancets (Accu-Ch ek Softclix Lancets) misc Start: 12-07-2021 End: 07-11-2023 Lancets (Accu-Ch ek Softclix Lancets) misc Start: 07-02-2020 End: 10-09-2020 Lancets (Accu-Ch ek Softclix Lancets) misc Start: 10-09-2020 End: 12-07-2021 Blood Sugar Diagnostic (Accu-Chek Guide Test Strips) strip Start: 10-31-2023 Lancets (Accu-Ch ek Multiclix Lancet) misc Start: 07-02-2020 Lancets (Accu-Ch ek Softclix Lancets) misc Start: 07-11-2023 Blood Sugar Diagnostic (Accu-Chek Mimi Plus Test Strp) strip Start: 07-02-2020 End: 07-02-2020 Blood Sugar Diagnostic (Accu-Chek Mimi Plus Test Strp) strip Start: 12-07-2021 End: 06-09-2022 Blood Sugar Diagnostic (Accu-Chek Mimi Plus Test Strp) strip Start: 07-02-2020 End: 10-09-2020 Blood Sugar Diagnostic (Accu-Chek Mimi Plus Test Strp) strip Start: 10-09-2020 End: 12-07-2021 Blood Sugar Diagnostic (Accu-Chek Mimi Plus Test Strp) strip Start: 06-09-2022 End: 07-06-2023 Blood Sugar Diagnostic (Accu-Chek Mimi Plus Test Strp) strip Start: 07-06-2023 End: 10-17-2023 Blood Sugar Diagnostic (Accu-Chek Guide Test Strips) strip Start: 10-17-2023 End: 10-31-2023 Lancets (Accu-Ch ek Softclix Lancets) misc Start: 07-02-2020 End: 07-02-2020 Lancets (Accu-Ch ek Softclix Lancets) misc Start: 12-07-2021 End: 07-11-2023 Lancets (Accu-Ch ek Softclix Lancets) misc Start: 07-02-2020 End: 10-09-2020 Lancets (Accu-Ch ek Softclix Lancets) misc Start: 10-09-2020 End: 12-07-2021 Blood Sugar Diagnostic (Accu-Chek Guide Test Strips) strip Start: 10-31-2023 Lancets (Accu-Ch ek Multiclix Lancet) misc Start: 07-02-2020 Lancets (Accu-Ch ek Softclix Lancets) misc Start: 07-11-2023 Blood Sugar Diagnostic (Accu-Chek Mimi Plus Test Strp) strip Start: 07-02-2020 End: 07-02-2020 Blood Sugar Diagnostic (Accu-Chek Mimi Plus Test Strp) strip Start: 12-07-2021 End: 06-09-2022 Blood Sugar Diagnostic (Accu-Chek Mimi Plus Test Strp) strip Start: 07-02-2020 End: 10-09-2020 Blood Sugar Diagnostic (Accu-Chek Mimi Plus Test Strp) strip Start: 10-09-2020 End: 12-07-2021 Blood Sugar Diagnostic (Accu-Chek Mimi Plus Test Strp) strip Start: 06-09-2022 End: 07-06-2023 Blood Sugar Diagnostic (Accu-Chek Mimi Plus Test Strp) strip Start: 07-06-2023 End: 10-17-2023 Blood Sugar Diagnostic (Accu-Chek Guide Test Strips) strip Start: 10-17-2023 End: 10-31-2023 Lancets (Accu-Ch ek Softclix Lancets) misc Start: 07-02-2020 End: 07-02-2020 Lancets (Accu-Ch ek Softclix Lancets) misc Start: 12-07-2021 End: 07-11-2023 Lancets (Accu-Ch ek Softclix Lancets) misc Start: 07-02-2020 End: 10-09-2020 Lancets (Accu-Ch ek Softclix Lancets) misc Start: 10-09-2020 End: 12-07-2021 Blood Sugar Diagnostic (Accu-Chek Guide Test Strips) strip Start: 10-31-2023 Lancets (Accu-Ch ek Multiclix Lancet) misc Start: 07-02-2020 Lancets (Accu-Ch ek Softclix Lancets) misc Start: 07-11-2023 Blood Sugar Diagnostic (Accu-Chek Mimi Plus Test Strp) strip Start: 07-02-2020 End: 07-02-2020 Blood Sugar Diagnostic (Accu-Chek Mimi Plus Test Strp) strip Start: 12-07-2021 End: 06-09-2022 Blood Sugar Diagnostic (Accu-Chek Mimi Plus Test Strp) strip Start: 07-02-2020 End: 10-09-2020 Blood Sugar Diagnostic (Accu-Chek Mimi Plus Test Strp) strip Start: 10-09-2020 End: 12-07-2021 Blood Sugar Diagnostic (Accu-Chek Mimi Plus Test Strp) strip Start: 06-09-2022 End: 07-06-2023 Blood Sugar Diagnostic (Accu-Chek Mimi Plus Test Strp) strip Start: 07-06-2023 End: 10-17-2023 Blood Sugar Diagnostic (Accu-Chek Guide Test Strips) strip Start: 10-17-2023 End: 10-31-2023 Lancets (Accu-Ch ek Softclix Lancets) misc Start: 07-02-2020 End: 07-02-2020 Lancets (Accu-Ch ek Softclix Lancets) misc Start: 12-07-2021 End: 07-11-2023 Lancets (Accu-Ch ek Softclix Lancets) misc Start: 07-02-2020 End: 10-09-2020 Lancets (Accu-Ch ek Softclix Lancets) misc Start: 10-09-2020 End: 12-07-2021 Blood Sugar Diagnostic (Accu-Chek Guide Test Strips) strip Start: 10-31-2023 Lancets (Accu-Ch ek Multiclix Lancet) misc Start: 07-02-2020 Lancets (Accu-Ch ek Softclix Lancets) misc Start: 07-11-2023 Blood Sugar Diagnostic (Accu-Chek Mimi Plus Test Strp) strip Start: 07-02-2020 End: 07-02-2020 Blood Sugar Diagnostic (Accu-Chek Mimi Plus Test Strp) strip Start: 12-07-2021 End: 06-09-2022 Blood Sugar Diagnostic (Accu-Chek Mimi Plus Test Strp) strip Start: 07-02-2020 End: 10-09-2020 Blood Sugar Diagnostic (Accu-Chek Mimi Plus Test Strp) strip Start: 10-09-2020 End: 12-07-2021 Blood Sugar Diagnostic (Accu-Chek Mimi Plus Test Strp) strip Start: 06-09-2022 End: 07-06-2023 Blood Sugar Diagnostic (Accu-Chek Mimi Plus Test Strp) strip Start: 07-06-2023 End: 10-17-2023 Blood Sugar Diagnostic (Accu-Chek Guide Test Strips) strip Start: 10-17-2023 End: 10-31-2023 Lancets (Accu-Ch ek Softclix Lancets) misc Start: 07-02-2020 End: 07-02-2020 Lancets (Accu-Ch ek Softclix Lancets) misc Start: 12-07-2021 End: 07-11-2023 Lancets (Accu-Ch ek Softclix Lancets) misc Start: 07-02-2020 End: 10-09-2020 Lancets (Accu-Ch ek Softclix Lancets) misc Start: 10-09-2020 End: 12-07-2021 Blood Sugar Diagnostic (Accu-Chek Guide Test Strips) strip Start: 10-31-2023 Lancets (Accu-Ch ek Multiclix Lancet) misc Start: 07-02-2020 Lancets (Accu-Ch ek Softclix Lancets) misc Start: 07-11-2023 Blood Sugar Diagnostic (Accu-Chek Mimi Plus Test Strp) strip Start: 07-02-2020 End: 07-02-2020 Blood Sugar Diagnostic (Accu-Chek Mimi Plus Test Strp) strip Start: 12-07-2021 End: 06-09-2022 Blood Sugar Diagnostic (Accu-Chek Mimi Plus Test Strp) strip Start: 07-02-2020 End: 10-09-2020 Blood Sugar Diagnostic (Accu-Chek Mimi Plus Test Strp) strip Start: 10-09-2020 End: 12-07-2021 Blood Sugar Diagnostic (Accu-Chek Mimi Plus Test Strp) strip Start: 06-09-2022 End: 07-06-2023 Blood Sugar Diagnostic (Accu-Chek Mimi Plus Test Strp) strip Start: 07-06-2023 End: 10-17-2023 Blood Sugar Diagnostic (Accu-Chek Guide Test Strips) strip Start: 10-17-2023 End: 10-31-2023 Lancets (Accu-Ch ek Softclix Lancets) misc Start: 07-02-2020 End: 07-02-2020 Lancets (Accu-Ch ek Softclix Lancets) misc Start: 12-07-2021 End: 07-11-2023 Lancets (Accu-Ch ek Softclix Lancets) misc Start: 07-02-2020 End: 10-09-2020 Lancets (Accu-Ch ek Softclix Lancets) misc Start: 10-09-2020 End: 12-07-2021 Blood Sugar Diagnostic (Accu-Chek Guide Test Strips) strip Start: 10-31-2023 Lancets (Accu-Ch ek Multiclix Lancet) misc Start: 07-02-2020 Lancets (Accu-Ch ek Softclix Lancets) misc Start: 07-11-2023 Blood Sugar Diagnostic (Accu-Chek Mimi Plus Test Strp) strip Start: 07-02-2020 End: 07-02-2020 Blood Sugar Diagnostic (Accu-Chek Mimi Plus Test Strp) strip Start: 12-07-2021 End: 06-09-2022 Blood Sugar Diagnostic (Accu-Chek Mimi Plus Test Strp) strip Start: 07-02-2020 End: 10-09-2020 Blood Sugar Diagnostic (Accu-Chek Mimi Plus Test Strp) strip Start: 10-09-2020 End: 12-07-2021 Blood Sugar Diagnostic (Accu-Chek Mimi Plus Test Strp) strip Start: 06-09-2022 End: 07-06-2023 Blood Sugar Diagnostic (Accu-Chek Mimi Plus Test Strp) strip Start: 07-06-2023 End: 10-17-2023 Blood Sugar Diagnostic (Accu-Chek Guide Test Strips) strip Start: 10-17-2023 End: 10-31-2023 Lancets (Accu-Ch ek Softclix Lancets) misc Start: 07-02-2020 End: 07-02-2020 Lancets (Accu-Ch ek Softclix Lancets) misc Start: 12-07-2021 End: 07-11-2023 Lancets (Accu-Ch ek Softclix Lancets) misc Start: 07-02-2020 End: 10-09-2020 Lancets (Accu-Ch ek Softclix Lancets) misc Start: 10-09-2020 End: 12-07-2021 Blood Sugar Diagnostic (Accu-Chek Guide Test Strips) strip Start: 03-27-2025 Lancets (Accu-Ch ek Multiclix Lancet) misc Start: 07-02-2020 Lancets (Accu-Ch ek Softclix Lancets) misc Start: 07-11-2023 Blood Sugar Diagnostic (Accu-Chek Mimi Plus Test Strp) strip Start: 07-02-2020 End: 07-02-2020 Blood Sugar Diagnostic (Accu-Chek Mimi Plus Test Strp) strip Start: 12-07-2021 End: 06-09-2022 Blood Sugar Diagnostic (Accu-Chek Mimi Plus Test Strp) strip Start: 07-02-2020 End: 10-09-2020 Blood Sugar Diagnostic (Accu-Chek Mimi Plus Test Strp) strip Start: 10-09-2020 End: 12-07-2021 Blood Sugar Diagnostic (Accu-Chek Mimi Plus Test Strp) strip Start: 06-09-2022 End: 07-06-2023 Blood Sugar Diagnostic (Accu-Chek Mimi Plus Test Strp) strip Start: 07-06-2023 End: 10-17-2023 Blood Sugar Diagnostic (Accu-Chek Guide Test Strips) strip Start: 10-17-2023 End: 10-31-2023 Blood Sugar Diagnostic (Accu-Chek Guide Test Strips) strip Start: 10-31-2023 End: 03-27-2025 Lancets (Accu-Ch ek Softclix Lancets) misc Start: 07-02-2020 End: 07-02-2020 Lancets (Accu-Ch ek Softclix Lancets) misc Start: 12-07-2021 End: 07-11-2023 Lancets (Accu-Ch ek Softclix Lancets) misc Start: 07-02-2020 End: 10-09-2020 Lancets (Accu-Ch ek Softclix Lancets) misc Start: 10-09-2020 End: 12-07-2021 Test blood sugar(s) 1 time daily and as needed for symptoms of high or low sugar. Dx: Type 2 DM - Controlled E11.9 Insulin: No [id number] Start: 04-10-2020 Test blood sugar(s) 1 time daily and as needed for symptoms of high or low sugar . Dx: Type 2 DM - Controlled E11.9 Insulin: No [id number] Start: 07-02-2019 Test blood sugar(s) 1 x daily and as needed. Dx: E11.9. Insulin: No [id number] Start: 04-07-2020 Check sugars latricia ly and as needed. E11.9 DM type 2, Insulin: No [id number] Start: 11-24-2019 Goals Date Patient Goal Desired Activity /State Personal health goal Functional Status Date Assessment Result Facility 03-18-2025 Are you deaf, or do you have serious difficulty hearing No 03/18/2025 3:02 PM Becka Wayne, RN No [facility] 03-18-2025 Are you blind, or do you have serious difficulty seeing, even when wearing glasses No 03/18/2025 3:02 PM Becka Wayne, RN No [facility] 03-18-2025 Do you have serious difficulty walking or climbing stairs Yes 03/18/2025 3:02 PM EDT Becka Carmona, NATALIA Yes [facility] 03-18-2025 Do you have difficul ty dressing or bathing No 03/18/2025 3:02 PM EDT Becka Carmona, NATALIA No [facility] 03-18-2025 Because of a physica l, mental, or emotional condition, do you have difficulty doing errands alone such as visiting a physician's office or shopping Yes 03/18/2025 3:02 PM EDT Becka Carmona, NATALIA Yes [facility] Mental Status Date Assessment Result Facility 03-18-2025 Because of a physica l, mental, or emotional condition, do you have serious difficulty concentrating, remembering, or making decisions No 03/18/2025 3:02 PM EDT Becka Carmona RN No [facility] 02-18-2025 Cognitive function Voice/Name [facility] Work Phone: 10-09-2024 Cognitive function Voice/Name [facility] Work Phone: 02-02-2022 Cognitive function Voice/Name [facility] Work Phone: 02-02-2022 Cognitive function Patient Gal au Person;Place;Time [facility] Work Phone: Clinical Notes 10-09-2024 to 06-11-2025 Arthur Lund MD - 04/24/2025 8:55 AM EDTTelephone Encounter - Evy Mckeon RN - 04/23/2025 1:56 PM EDTTelephone Encounter - Evy Mckeon RN - 04/23/2025 1:56 PM EDTPatient Instructions Note Date & Type Note Facility 06-11-2025 Note HNO ID: [id number] Author: ARTHUR LUND MD Service: ? Author Type: Physician Type: Progress Notes Filed: 06/12/2025 12:16 Note Text: [facility] [place] Patient Name: Dl Parsons Age: [age] year old Sex: female Date: 06/11/2025 SUBJECTIVE HPI: Dl Parsons is a 80 year old female with a history significant for pT2N0 papillary thyroid cancer and a surgical history significant for total thyroidectomy on 05/21/25. She has had some dysphonia since surgery and some dysphagia in the morning with pills. Denies choking or aspiration. Pain is well controlled. Review of Systems: As per HPI OBJECTIVE Vitals: There were no vitals taken for this visit. Physical Examination: Constitutional - General Appearance: well developed, well nourished, without obvious deformities Communication: speaks with a normal voice without hoarseness Head AND Face - Facial strength: HB 1/6 Bilaterally Neck: Thyroidectomy incision is healing well, area is soft with mild supra-incisional edema, non-tender to palpation Cranial Nerves: III, IV, : EOM normal VII: Normal strength in all divisions IX, X: Normal voice XI: Shoulder strength normal XII: Tongue mobility normal PROCEDURE: With the patient sitting upright, informed consent was obtained. Topical anesthesia and vasoconstriction was applied with spray to the right and left side(s) of the nose. After waiting an appropriate period of time for anesthesia/vasoconstriction to become effective, a flexible laryngoscope was passed through the left side(s) of the nose. Nasopharynx, oropharynx, hypopharynx and larynx were examined. FINDINGS: The nasopharynx and oropharynx were normal without any lesions or masses visualized. No masses or lesions were visualized at the base of tongue, vallecula, epiglottis, aryepiglottic folds, pyriform sinuses, and lateral pharyngeal hines. True vocal cord movement was intact bilaterally, and no lesions were visualized. The patient's airway was widely patent with no evidence of obstruction. Pt tolerated the procedure well, and there were no complications. The procedure was performed by Dr. Milian ASSESSMENT/PLAN Dl Parsons is a 80 year old female with pT2N0 papillary thyroid cancer and a surgical history significant for total thyroidectomy on 05/21/25. Healing well. 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 - Endocrinology consult for consideration of DONALD given pre-operative rapid growth and tall cell variant - Follow up in 4-6 months for post treatment ultrasound Jonnathan Milian MD for the service of Arthur Lund MD June 12, 2025 I participated in the history and physical exam of Dl Parsons. I discussed the management of Dl Parsons with the resident. I reviewed the resident's note and agree with the documented findings and plan of care. Arthur Lund MD [facility] 05-25-2025 Note HNO ID: [id number] Author: JOEL ANDERSEN MD Service: Otolaryngology Author Type: Resident Type: Progress Notes Filed: 05/25/2025 07:32 Note Text: [facility] OT[facility] - HEAD AND NECK SURGERY PROGRESS NOTE PAGE [id number] AFTER 1700 AND ON WEEKENDS Patient Name: Dl Parsons Age: [age] year old Sex: female Date: May 25, 2025 Admission Date: 05/21/2025 Hospital Day: 0 ASSESSMENT/PLAN: Dl Parsons is a 80 year old female 4 Days Post-Op from: Total thyroidectomy Dc drain and dc home today - Anticoagulation: SQH - FEN: mIVF, tolerating regular diet - Wound Care: Bacitracin to incisions BID until POD7 - Drain Care: Strip drains q4h, record output q8h - Dispo: ERIKA Andersen MD PGY-2, Otolaryngology - [facility] [place] Personal Pager/ Service Pager: [phone] (Page after 5pm to 7am M-F and on weekends) SUBJECTIVE: NAEON. Pain well-controlled with current regimen. Breathing well on RA. Tolerating diet. Voice breathy. OBJECTIVE: Vitals: 05/24/25 1205 05/24/25 1547 05/24/25202425 0021 BP: 137/66 140/73 123/61 137/65 Pulse: 79 76 61 Resp: 16 17 16 20 Temp: 36.7 ?C (98.1 ?F) 36.8 ?C (98.2 ?F) 36.9 ?C (98.4 ?F) 36.4 ?C (97.5 ?F) TempSrc: Oral Oral Oral Oral SpO2: 93% 96% 93% 95% Weight: Height: Ins AND Outs: Date 05/24/25699 - 05/25/2565805/25/25699 - 05/26/25 0659 Shift 4908-9942 5846-7451 1887-8185 24 Hour Total 3024-1369 8185-9237 1158-2911 24 Hour Total INTAKE Shift Total OUTPUT Tubes 30 30 Drain/Tube Output (Drain/Tube 05/21/25 1236 [facility] Tera Hernandez Right Throat Drain #1) 30 30 Shift Total 30 30 Weight (kg) 83.1 83.1 83.1 83.1 83.1 83.1 83.1 83.1 Physical Examination: General: No acute distress Neuro: following commands, appropriate Cardiopulm: Well perfused, breathing non-labored, no hoarseness Face: Full and symmetric facial motion, no weakness Neck: soft, incisions c/d/i, no signs of hematoma, seroma Drains: RN RAVI x 1, serosanguinous and holding suction LABS: Blood: Recent Labs 05/23/251105/22/2515 WBC 12.08* 10.59 HB 12.8 12.0 HCT 38.1 37.1 PLT 371 350 MCV 81.2 84.5 MCH 27.3 27.3 MCHC 33.6 32.3 RDWCV 15.9* 15.3* MPV 9.3 9.6 Recent Labs 05/23/251005/22/25 0615 NA 134* 137 K 4.0 4.4 CHLOR 95* 101 CO2 BUN 9 7 CREAT 0.67 0.58 GLUC 145* 164* CA 9.2 9.0 MG 1.9 1.8 P 3.1 3.3 Recent Labs 05/24/25203005/24/25 1710 05/24/25 1207 05/24/25 1002 05/23/25 2050 05/23/25 1829 05/23/25 1220 05/23/25 1143 PCGLUCOSE 174* 138* 161* 246* 201* 141* 150* 168* No results for input(s): "CK", "CKMB", "MB", "TROPT" in the last 72 hours. No results for input(s): "PTSEC", "INR", "APTT" in the last 72 hours. No results for input(s): "TBILI", "CBILI", "AST", "ALT", "ALKPHOS", "TPROT", "ALB", "AMYLASE", "LIPASE" in the last 72 hours. Recent Labs 05/23/25 1425 LACT 1.3 Medications: Current Facility-Administered Medications Medication Dose Route Frequency tiotropium 2.5 mcg - olodaterol 2.5 mcg inhaler (STIOLTO RESPIMAT) 2 puff INHALATION DAILY calcium carbonate 1,000 mg chewable tab(s) (TUMS) 1,000 mg ORAL TID insulin lispro injection (rapid acting) (ADMElog) SUBCUTANEOUS w MEALS AND HS acetaminophen 650 mg tab(s) (TYLENOL) 650 mg ORAL q 6 H PRN amLODIPine 10 mg tab(s) (NORVASC) 10 mg ORAL DAILY metoprolol tartrate (short acting) 25 mg tab(s) (LOPRESSOR) 25 mg ORAL BID albuterol HFA 90 mcg/actuation 2 puff (PROVENTIL HFA, VENTOLIN HFA) 2 puff INHALATION q 6 H PRN oxyCODONE IR 5-10 mg tab(s) (ROXICODONE) 5-10 mg ORAL/FEEDING TUBE q 4 H PRN Or oxyCODONE 5-10 mg oral liquid (ROXICODONE) 5-10 mg ORAL q 4 H PRN pantoprazole 20 mg oral liquid (PROTONIX) 20 mg ORAL/FEEDING TUBE DAILY polyethylene glycol 3350 17 g packet 17 g ORAL/FEEDING TUBE DAILY PRN lactulose 20 g oral liquid 20 g ORAL/FEEDING TUBE DAILY PRN bisacodyl 10 mg suppository (DULCOLAX) 10 mg RECTAL DAILY PRN ondansetron (PF) 4 mg injection (ZOFRAN) 4 mg INTRAVENOUS q 6 H PRN prochlorperazine 10 mg injection (COMPAZINE) 10 mg INTRAVENOUS q 6 H PRN promethazine 25 mg suppository (PHENERGAN) 25 mg RECTAL q 6 H PRN levothyroxine (SYNTHROID) tab(s) 137 mcg 137 mcg ORAL DAILY (6 AM) enoxaparin 40 mg injection (LOVENOX) 40 mg SUBCUTANEOUS DAILY acetaminophen 1,000 mg tab(s) (TYLENOL) 1,000 mg ORAL/FEEDING TUBE q 6 H Followed by [START ON 05/28/2025] acetaminophen 500 mg tab(s) (TYLENOL) 500 mg ORAL/FEEDING TUBE q 6 H dextrose 15 gram/32 mL 15 g (TRUEPLUS) 15 g ORAL PRN Or glucagon 1 mg injection 1 mg INTRAMUSCULAR PRN Or dextrose 10% iv bolus 12.5 g INTRAVENOUS PRN influenza vaccine ts 180 mcg (Patients 65 years and older) (PF) 0.5 mL injection (FLUZONE HIGH DOSE ) (more content not included)... [facility] 05-24-2025 Note HNO ID: [id number] Author: MICHELLE MONTANEZ RN Service: Care Management Author Type: Registered Nurse Type: Care Mgt Progress Note Filed: 05/24/2025 12:49 Note Text: CARE MANAGEMENT DISCHARGE NOTE SERVICE DATE: May 24, 2025 SERVICE TIME: 12:48 PM Admission Date: 05/21/2025 LOS: 0 days Discharge Arrangement Discharge Arrangement: Home with Self Care Caregiver Assessment Caregiver is ready, willing and able to meet the patient's needs as recommended by the inter-professional team: No Caregiver needed Transportation Arrangements Transportation Arrangements: Car Date of Trip: 05/24/25 Destination: Home Handoff Communication: Handoff to: Primary Care Physician Primary Care Physician Name/Phone: Kaitlyn Condon MD Provider Role PCP - General, Internal Medicine Additional Information: Per medical team patient is ready for discharge. No skilled needs identified. Discharge instructions provided by floor nursing staff. Family will transport home. Patient is ready for discharge from . Needs Prior to Discharge: Ready for Discharge IMM Follow Up Copy Given: Yes Copy given to:: Patient Method: In Person SIGNATURE: Michelle Montanez RN PATIENT NAME: Dl Parsons DATE: May 24, 2025 TIME: 12:48 PM [facility] 05-24-2025 Note HNO ID: [id number] Author: YOON ROBERTSON MD Service: Otolaryngology Author Type: Resident Type: Progress Notes Filed: 05/24/2025 06:37 Note Text: [facility] - HEAD AND NECK SURGERY PROGRESS NOTE PAGE [id number] AFTER 1700 AND ON WEEKENDS Patient Name: Dl Parsons Age: [age] year old Sex: female Date: May 24, 2025 Admission Date: 05/21/2025 Hospital Day: 0 ASSESSMENT/PLAN: Dl Parsons is a 80 year old female 3 Days Post-Op from: Total thyroidectomy Drain watch Possible dc drain dc home this afternoon - Anticoagulation: SQH - FEN: mIVF, tolerating regular diet - Wound Care: Bacitracin to incisions BID until POD7 - Drain Care: Strip drains q4h, record output q8h - Dispo: [facility] Yoon Robertson MD PGY-2 Otolaryngology-Head and Neck Surgery Service Pager: [phone] Pager: [phone] SUBJECTIVE: NAEON. Pain well-controlled with current regimen. Breathing well on RA. Tolerating diet. Voice breathy. OBJECTIVE: Vitals: 05/23/25 1732 05/23/25 2048 05/23/25 2354 05/24/25 0355 BP: 143/68 135/65 145/69 Pulse: 70 81 61 64 Resp: 16 16 18 18 Temp: 36.4 ?C (97.5 ?F) 36.4 ?C (97.5 ?F) 36.8 ?C (98.2 ?F) TempSrc: Axillary Axillary Oral SpO2: 99% 92% 95% 98% Weight: Height: Ins AND Outs: Date 05/23/25 07 - 05/24/25 0659 05/24/25 07 - 05/25/25 0659 Shift 7964-3508 7053-1363 7084-5929 24 Hour Total 5780-4880 1081-9422 6037-8937 24 Hour Total INTAKE PO 240 240 PO 240 240 Shift Total 240 240 OUTPUT Tubes 45 10 55 Drain/Tube Output (Drain/Tube 05/21/25 1236 [facility] Tera Hernandez Right Throat Drain #1) 45 10 55 Shift Total 45 10 55 Weight (kg) 83.1 83.1 83.1 83.1 83.1 83.1 83.1 83.1 Physical Examination: General: No acute distress Neuro: following commands, appropriate Cardiopulm: Well perfused, breathing non-labored, no hoarseness Face: Full and symmetric facial motion, no weakness Neck: soft, incisions c/d/i, no signs of hematoma, seroma Drains: RN RAVI x 1, serosanguinous and holding suction LABS: Blood: Recent Labs 05/23/252 05/22/25 0615 WBC 12.08* 10.59 HB 12.8 12.0 HCT 38.1 37.1 PLT 371 350 MCV 81.2 84.5 MCH 27.3 27.3 MCHC 33.6 32.3 RDWCV 15.9* 15.3* MPV 9.3 9.6 Recent Labs 05/23/25 0011 05/22/25 0615 NA 134* 137 K 4.0 4.4 CHLOR 95* 101 CO2 BUN 9 7 CREAT 0.67 0.58 GLUC 145* 164* CA 9.2 9.0 MG 1.9 1.8 P 3.1 3.3 Recent Labs 05/23/25204905/23/25 1829 05/23/25 1220 05/23/25 1143 05/23/25 0814 05/22/25 2058 05/22/25 1808 05/22/25 1122 PCGLUCOSE 201* 141* 150* 168* 165* 178* 166* 149* No results for input(s): "CK", "CKMB", "MB", "TROPT" in the last 72 hours. No results for input(s): "PTSEC", "INR", "APTT" in the last 72 hours. No results for input(s): "TBILI", "CBILI", "AST", "ALT", "ALKPHOS", "TPROT", "ALB", "AMYLASE", "LIPASE" in the last 72 hours. Recent Labs 05/23/25 1425 LACT 1.3 Medications: Current Facility-Administered Medications Medication Dose Route Frequency tiotropium 2.5 mcg - olodaterol 2.5 mcg inhaler (STIOLTO RESPIMAT) 2 puff INHALATION DAILY calcium carbonate 1,000 mg chewable tab(s) (TUMS) 1,000 mg ORAL TID insulin lispro injection (rapid acting) (ADMElog) SUBCUTANEOUS w MEALS AND HS acetaminophen 650 mg tab(s) (TYLENOL) 650 mg ORAL q 6 H PRN amLODIPine 10 mg tab(s) (NORVASC) 10 mg ORAL DAILY metoprolol tartrate (short acting) 25 mg tab(s) (LOPRESSOR) 25 mg ORAL BID albuterol HFA 90 mcg/actuation 2 puff (PROVENTIL HFA, VENTOLIN HFA) 2 puff INHALATION q 6 H PRN oxyCODONE IR 5-10 mg tab(s) (ROXICODONE) 5-10 mg ORAL/FEEDING TUBE q 4 H PRN Or oxyCODONE 5-10 mg oral liquid (ROXICODONE) 5-10 mg ORAL q 4 H PRN pantoprazole 20 mg oral liquid (PROTONIX) 20 mg ORAL/FEEDING TUBE DAILY polyethylene glycol 3350 17 g packet 17 g ORAL/FEEDING TUBE DAILY PRN lactulose 20 g oral liquid 20 g ORAL/FEEDING TUBE DAILY PRN bisacodyl 10 mg suppository (DULCOLAX) 10 mg RECTAL DAILY PRN ondansetron (PF) 4 mg injection (ZOFRAN) 4 mg INTRAVENOUS q 6 H PRN prochlorperazine 10 mg injection (COMPAZINE) 10 mg INTRAVENOUS q 6 H PRN promethazine 25 mg suppository (PHENERGAN) 25 mg RECTAL q 6 H PRN levothyroxine (SYNTHROID) tab(s) 137 mcg 137 mcg ORAL DAILY (6 AM) enoxaparin 40 mg injection (LOVENOX) 40 mg SUBCUTANEOUS DAILY acetaminophen 1,000 mg tab(s) (TYLENOL) 1,000 mg ORAL/FEEDING TUBE q 6 H Followed by [START ON 05/28/2025] acetaminophen 500 mg tab(s) (TYLENOL) 500 mg ORAL/FEEDING TUBE q 6 H dextrose 15 gram/32 mL 15 g (TRUEPLUS) 15 g ORAL PRN Or glucagon 1 mg injection 1 mg INTRAMUSCULAR PRN Or dextrose 10% iv bolus 12.5 g INTRAVENOUS PRN influenza vaccine ts 180 mcg (Patients 65 years and older) (PF) 0.5 mL injection (FLUZONE HIGH DOSE ) 0.5 mL INTRAMUSCULAR ONCE (IMMUNIZATION) valsartan 160 mg tab(s) (DIOVAN) 160 mg ORAL DAILY And hydroCHLOROthiazide 12.5 mg (more content not included)... [facility] 05-23-2025 Note HNO ID: [id number] Author: MICHELLE MONTANEZ RN Service: Care Management Author Type: Registered Nurse Type: Care Mgt Initial Assessment Filed: 05/23/2025 15:38 Note Text: CARE MANAGEMENT: ASSESSMENT AND DISCHARGE PLAN SERVICE DATE: May 23, 2025 SERVICE TIME: 3:37 PM PCP: Kaitlyn Condon MD Primary Contact: Extended Emergency Contact Information Primary Emergency Contact: Joana thomas Mobile Relation: Sister Secondary Emergency Contact: Jaqueline,Gary Address: [address] [place] [address] [place] [address] Mobile Relation: Spouse Admission Status: Observation Insurance Provider: [employer] MEDICARE PPO Discharge Planning requested by: Per Department Practice Potential Transition Plans No Services Indicated Advance Directives Current Advance Directive: 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 with AD Completion: Yes Action: Education Provided, Patient Unwilling Current Living Arrangements and Support Lives with: Spouse/significant other Type of Residence: Private Residence (House) Does the patient have to climb stairs at home?: Yes Support: Family members, Friends/neighbors How do you manage to accomplish the following: Independent: Ambulation, Bathe/Shower, Dress, Meals/Meal Prep, Going to the bathroom, Medication Management, Transportation to appointments/community Current Services/Equipment Current Post-Acute Service(s): Oxygen Current O2 Usage (device, rate, continuous/pulse and hrs per day): 2 LPM Discharge Planning Patient Goal(s): Be able to go home, General wellness Serafina of Choice Explained: Serafina of Choice Given: No Reason Not Given: No placements necessary Are you interested in bedside delivery of your medications? Yes Discharge Planning Participant(s): Patient Patient/Family Comments: Caregiver Assessment: Caregiver is ready, willing and able to meet the patient's needs as recommended by the inter-professional team: No Caregiver needed Transport at Discharge: Transportation Arrangements: Car Destination: Home Needs Prior to Discharge: Needs Prior to Discharge: None Post-Acute Discharge Plan: This patient has been screened for Care Management Transitional Planning Services. At this time, it does not appear this patient will require transition planning services. Should this change, and the patient require transition planning services during this admission, please contact Case Management. Patient anticipated to discharge tomorrow with no needs. SIGNATURE: Michelle Montanez RN PATIENT NAME: Dl Parsons DATE: May 23, 2025 TIME: 3:37 PM [facility] 05-23-2025 Note HNO ID: [id number] Author: CAPO MEYER APRN.CNP Service: Otolaryngology Author Type: Nurse Practitioner Type: Progress Notes Filed: 05/23/2025 09:38 Note Text: [facility] OT[facility]Y - HEAD AND NECK SURGERY PROGRESS NOTE PAGE [phone] AFTER 1700 AND ON WEEKENDS Patient Name: Dl Parsons Age: [age] year old Sex: female Date: May 23, 2025 Admission Date: 05/21/2025 Hospital Day: 0 ASSESSMENT/PLAN: Dl Parsons is a 80 year old female 2 Days Post-Op from: Total thyroidectomy Drain watch Possible dc drain dc home this afternoon - Anticoagulation: SQH - FEN: mIVF, tolerating regular diet - Wound Care: Bacitracin to incisions BID until POD7 - Drain Care: Strip drains q4h, record output q8h - Dispo: ERIKA Robertson MD PGY-2 Otolaryngology-Head and Neck Surgery Service Pager: [phone] Pager: [phone] SUBJECTIVE: Some nausea overnight Pain well-controlled with current regimen. Breathing well on RA. Tolerating diet. Voice breathy. OBJECTIVE: Vitals: 05/22/25 1539 05/22/25 1553 05/22/25 1950 05/22/25 2348 BP: 167/69 138/67 153/63 Pulse: 92 89 68 Resp: 16 16 Temp: 36.8 ?C (98.2 ?F) 36.4 ?C (97.5 ?F) TempSrc: Oral Oral SpO2: 91% 98% Weight: 83.1 kg (183 lb 3.2 oz) Height: 152.4 cm (5') Ins AND Outs: Date 05/22/25699 - 05/23/2565805/23/25699 - 05/24/25 0659 Shift 0759-9037 1736-1054 4954-2903 24 Hour Total 2981-3285 5320-9118 7611-7146 24 Hour Total INTAKE PO 840 840 PO 840 840 IV 56 56 Volume (mL) (NaCl 0.9% iv infusion) 56 56 Shift Total 896 896 OUTPUT Urine 1586 078 0909 Void (ml) 1452 202 8894 Urine Not Saved. 2 x 3 x 5 x Tubes 30 20 10 60 Drain/Tube Output (Drain/Tube 05/21/25 1236 [facility] Tera Hernandez Right Throat Drain #1) 30 20 10 60 Shift Total 1330 985 72 7771 Weight (kg) 83.1 83.1 83.1 83.1 83.1 83.1 83.1 Physical Examination: General: No acute distress Neuro: following commands, appropriate Cardiopulm: Well perfused, breathing non-labored, no hoarseness Face: Full and symmetric facial motion, no weakness Neck: soft, incisions c/d/i, no signs of hematoma, seroma Drains: RN RAVI x 1, serosanguinous and holding suction LABS: Blood: Recent Labs 05/23/251105/22/25614 WBC 12.08* 10.59 HB 12.8 12.0 HCT 38.1 37.1 PLT 371 350 MCV 81.2 84.5 MCH 27.3 27.3 MCHC 33.6 32.3 RDWCV 15.9* 15.3* MPV 9.3 9.6 Recent Labs 05/23/25 0011 05/22/25 06 NA 134* 137 K 4.0 4.4 CHLOR 95* 101 CO2 BUN 9 7 CREAT 0.67 0.58 GLUC 145* 164* CA 9.2 9.0 MG 1.9 1.8 P 3.1 3.3 Recent Labs 05/22/25205705/22/25 1808 05/22/25 1122 05/22/25 0610 05/21/25 1949 05/21/25 1745 05/21/25 1448 05/21/25 0840 PCGLUCOSE 178* 166* 149* 166* 272* 244* 222* 147* No results for input(s): "CK", "CKMB", "MB", "TROPT" in the last 72 hours. No results for input(s): "PTSEC", "INR", "APTT" in the last 72 hours. No results for input(s): "TBILI", "CBILI", "AST", "ALT", "ALKPHOS", "TPROT", "ALB", "AMYLASE", "LIPASE" in the last 72 hours. No results for input(s): "PH", "PCO2", "PO2", "HCO3", "BE", "LACT" in the last 72 hours. Medications: Current Facility-Administered Medications Medication Dose Route Frequency calcium carbonate 1,000 mg chewable tab(s) (TUMS) 1,000 mg ORAL TID insulin lispro injection (rapid acting) (ADMElog) SUBCUTANEOUS w MEALS AND HS acetaminophen 650 mg tab(s) (TYLENOL) 650 mg ORAL q 6 H PRN amLODIPine 10 mg tab(s) (NORVASC) 10 mg ORAL DAILY metoprolol tartrate (short acting) 25 mg tab(s) (LOPRESSOR) 25 mg ORAL BID albuterol HFA 90 mcg/actuation 2 puff (PROVENTIL HFA, VENTOLIN HFA) 2 puff INHALATION q 6 H PRN oxyCODONE IR 5-10 mg tab(s) (ROXICODONE) 5-10 mg ORAL/FEEDING TUBE q 4 H PRN Or oxyCODONE 5-10 mg oral liquid (ROXICODONE) 5-10 mg ORAL q 4 H PRN pantoprazole 20 mg oral liquid (PROTONIX) 20 mg ORAL/FEEDING TUBE DAILY polyethylene glycol 3350 17 g packet 17 g ORAL/FEEDING TUBE DAILY PRN lactulose 20 g oral liquid 20 g ORAL/FEEDING TUBE DAILY PRN bisacodyl 10 mg suppository (DULCOLAX) 10 mg RECTAL DAILY PRN ondansetron (PF) 4 mg injection (ZOFRAN) 4 mg INTRAVENOUS q 6 H PRN prochlorperazine 10 mg injection (COMPAZINE) 10 mg INTRAVENOUS q 6 H PRN promethazine 25 mg suppository (PHENERGAN) 25 mg RECTAL q 6 H PRN levothyroxine (SYNTHROID) tab(s) 137 mcg 137 mcg ORAL DAILY (6 AM) enoxaparin 40 mg injection (LOVENOX) 40 mg SUBCUTANEOUS DAILY acetaminophen 1,000 mg tab(s) (TYLENOL) 1,000 mg ORAL/FEEDING TUBE q 6 H Followed by [START ON 05/28/2025] acetaminophen 500 mg tab(s) (TYLENOL) 500 mg ORAL/FEEDING TUBE q 6 H dextrose 15 gram/32 mL 15 g (TRUEPLUS) 15 g ORAL PRN Or glucagon 1 mg injection 1 mg INTRAMUSCULAR PRN Or dextrose 10% iv bolus 12.5 g INTRAVENOUS PRN influenza vaccine ts 180 mcg (Patients 65 years and older) (PF) 0.5 mL injection (FLUZONE HIGH DOSE ) 0.5 mL INTRA (more content not included)... [facility] 05-22-2025 Note HNO ID: [id number] Author: YOON ROBERTSON MD Service: Otolaryngology Author Type: Resident Type: Progress Notes Filed: 05/22/2025 06:56 Note Text: [facility] OT[facility]Y - HEAD AND NECK SURGERY PROGRESS NOTE PAGE [phone] AFTER 1700 AND ON WEEKENDS Patient Name: Dl Parsons Age: [age] year old Sex: female Date: May 21, 2025 Admission Date: 05/21/2025 Hospital Day: 0 ASSESSMENT/PLAN: Dl Parsons is a 80 year old female * Day of Surgery * from: Total thyroidectomy f/u am PTH - Anticoagulation: SQH - FEN: mIVF, tolerating regular diet - Wound Care: Bacitracin to incisions BID until POD7 - Drain Care: Strip drains q4h, record output q8h - Dispo: ERIKA Robertson MD PGY-2 Otolaryngology-Head and Neck Surgery Service Pager: [phone] Pager: [phone] SUBJECTIVE: No acute events overnight. Pain well-controlled with current regimen. Breathing well on RA. Tolerating diet. Voice breathy. OBJECTIVE: Vitals: 05/21/25 1415 05/21/25 1430 05/21/25 1500 05/21/25 1535 BP: 130/63 125/58 128/80 149/68 Pulse: 97 98 100 103 Resp: 18 17 18 Temp: 36.4 ?C (97.5 ?F) 36.6 ?C (97.9 ?F) TempSrc: Temporal Oral SpO2: 96% 97% 95% 95% Ins AND Outs: Date 05/20/25 1500 - 05/21/25 0659(Not Admitted) 05/21/25 0700 - 05/22/25 0659 Shift 7036-4249 1278-2960 24 Hour Total 9102-1234 0320-3069 4560-5253 24 Hour Total INTAKE IV 0638 029 1887 Volume (mL) (lactated ringers iv infusion) 500 500 Volume (mL) (lactated ringers iv infusion) 800 800 Volume (mL) (lactated ringers iv infusion) 100 100 200 Shift Total 6413 756 5957 OUTPUT Urine 400 300 700 Void (ml) 400 300 700 Blood 10 10 Estimated Blood loss 10 10 Shift Total 410 300 710 Weight (kg) Physical Examination: General: No acute distress Neuro: following commands, appropriate Cardiopulm: Well perfused, breathing non-labored, no hoarseness Face: Full and symmetric facial motion, no weakness Neck: soft, incisions c/d/i, no signs of hematoma, seroma Drains: RN RAVI x 1, serosanguinous and holding suction LABS: Blood:No results for input(s): "WBC", "HB", "HCT", "PLT", "MCV", "MCH", "MCHC", "RDWCV", "MPV", "NEUTP", "LYMPHP", "MONOP", "EODINP", "BASOP", "ABSNEUT", "ABSLYM", "ABSMONO", "ABSEOSIN", "ABSBASO" in the last 72 hours. No results for input(s): "NA", "K", "CHLOR", "CO2", "BUN", "CREAT", "GLUC", "CA", "MG", "P" in the last 72 hours. Recent Labs 05/21/25 1448 05/21/25 0840 PCGLUCOSE 222* 147* No results for input(s): "CK", "CKMB", "MB", "TROPT" in the last 72 hours. No results for input(s): "PTSEC", "INR", "APTT" in the last 72 hours. No results for input(s): "TBILI", "CBILI", "AST", "ALT", "ALKPHOS", "TPROT", "ALB", "AMYLASE", "LIPASE" in the last 72 hours. No results for input(s): "PH", "PCO2", "PO2", "HCO3", "BE", "LACT" in the last 72 hours. Medications: Current Facility-Administered Medications Medication Dose Route Frequency acetaminophen 650 mg tab(s) (TYLENOL) 650 mg ORAL q 6 H PRN [START ON 05/22/2025] amLODIPine 10 mg tab(s) (NORVASC) 10 mg ORAL DAILY metoprolol tartrate (short acting) 25 mg tab(s) (LOPRESSOR) 25 mg ORAL BID albuterol HFA 90 mcg/actuation 2 puff (PROVENTIL HFA, VENTOLIN HFA) 2 puff INHALATION q 6 H PRN NaCl 0.9% iv infusion 0-100 mL/hr INTRAVENOUS CONTINUOUS oxyCODONE IR 5-10 mg tab(s) (ROXICODONE) 5-10 mg ORAL/FEEDING TUBE q 4 H PRN Or oxyCODONE 5-10 mg oral liquid (ROXICODONE) 5-10 mg ORAL q 4 H PRN pantoprazole 20 mg oral liquid (PROTONIX) 20 mg ORAL/FEEDING TUBE DAILY polyethylene glycol 3350 17 g packet 17 g ORAL/FEEDING TUBE DAILY PRN lactulose 20 g oral liquid 20 g ORAL/FEEDING TUBE DAILY PRN bisacodyl 10 mg suppository (DULCOLAX) 10 mg RECTAL DAILY PRN ondansetron (PF) 4 mg injection (ZOFRAN) 4 mg INTRAVENOUS q 6 H PRN prochlorperazine 10 mg injection (COMPAZINE) 10 mg INTRAVENOUS q 6 H PRN promethazine 25 mg suppository (PHENERGAN) 25 mg RECTAL q 6 H PRN [START ON 05/22/2025] levothyroxine (SYNTHROID) tab(s) 137 mcg 137 mcg ORAL DAILY (6 AM) [START ON 05/22/2025] enoxaparin 40 mg injection (LOVENOX) 40 mg SUBCUTANEOUS DAILY acetaminophen 1,000 mg tab(s) (TYLENOL) 1,000 mg ORAL/FEEDING TUBE q 6 H Followed by [START ON 05/28/2025] acetaminophen 500 mg tab(s) (TYLENOL) 500 mg ORAL/FEEDING TUBE q 6 H calcium carbonate 1,000 mg chewable tab(s) (TUMS) 1,000 mg ORAL TID insulin lispro injection (rapid acting) (ADMElog) SUBCUTANEOUS q 6 H dextrose 15 gram/32 mL 15 g (TRUEPLUS) 15 g ORAL PRN Or glucagon 1 mg injection 1 mg INTRAMUSCULAR PRN Or dextrose 10% iv bolus 12.5 g INTRAVENOUS PRN [START ON 05/22/2025] influenza vaccine ts 180 mcg (Patients 65 years and older) (PF) 0.5 mL injection (FLUZONE HIGH DOSE ) 0.5 mL INTRAMUSCULAR ONCE (IMMUNIZATION) [START ON 05/22/2025] valsartan 160 mg tab(s) (DIOVAN) 160 mg ORAL DAILY And [START ON 05/22/2025] hydroCHLOROthiazide 12.5 mg tab(s) 12.5 mg (more content not included)... [facility] 05-21-2025 Note HNO ID: [id number] Author: SAMANTHA SARMIENTO SRNA Service: ? 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 SRNA: Samantha Sarmiento SRNA Performed by: QUINTIN Indications and Patient Condition Indications for airway management: anesthesia Preoxygenated: yes anesthesia circuit Patient position: sniffing Method: asleep Cricoid Pressure: No Manual In-Line Stabilization: No Difficult Mask: No Airway Accessory: oral airway Final Airway Details Final airway type: endotracheal airwayFinal Endotracheal Airway: NIM tube Cuffed: yes Successful intubation technique: video laryngoscopy Devices used: Palm and intubating stylet Endotracheal tube insertion site: oral Blade: Sylvia Blade size: #3 ETT size (mm): 6.0 Measured from: lips Measurement (cm): 18 Placement verified by: capnometry Cormack-Lehane Classification: grade I - full view of glottis Number of attempts at approach: 1 Ventilation between attempts: none Failed airway: no Unrecognized esophageal intubation: no Airway not difficult SIGNATURE: QUINTIN Siddiqui PATIENT NAME: Dl Parsons DATE: May 21, 2025 TIME: 10:16 AM CSN: [id number] [facility] 05-21-2025 Note HNO ID: [id number] Author: SAMANTHA SARMIENTO SRNA Service: ? Author Type: Student Type: Anesthesia Procedure Notes Filed: 05/21/2025 10:15 Note Text: ANESTHESIOLOGY PROCEDURE NOTE PIV General Information Procedure Start Time/Medication Administration: 05/21/2025 10:01 AM Procedure End Time: 05/21/2025 10:01 AM Patient Location: OR Staffing Anesthesiologist: Yaron Magaña MD Performed by: anesthesiologist Preparation Sterility Preparation: hand hygiene performed prior to procedure, surgical cap used, mask used, skin prep agent completely dried prior to procedure Sterility Technique Not Completely Performed Due to Extreme Emergency: No Site Prep: chlorhexidine Procedure Details Indication: need for IV access Needle Size/Type: 20 gauge angiocath Orientation: Right Location: Hand Imaging Guidance Used: No SIGNATURE: QUINTIN Siddiqui PATIENT NAME: Dl Parsons DATE: May 21, 2025 TIME: 10:15 AM CSN: [id number] [facility] 05-21-2025 Note HNO ID: [id number] Author: YARON MAGAÑA MD Service: ? Author Type: Student Type: Anesthesia Procedure Notes Filed: 05/21/2025 12:41 Note Text: Attestation signed by Yaron Magaña MD at 05/21/2025 12:41 PM For this procedure, I was physically present for this entire procedure. Yaron Magaña MD ANESTHESIOLOGY PROCEDURE NOTE PIV General Information Procedure Start Time/Medication Administration: 05/21/2025 9:50 AM Procedure End Time: 05/21/2025 9:50 AM Patient Location: OR Staffing SRNA: Samantha Sarmiento SRNA Performed by: SRNA Preparation Sterility Preparation: hand hygiene performed prior to procedure, surgical cap used, mask used, skin prep agent completely dried prior to procedure Sterility Technique Not Completely Performed Due to Extreme Emergency: No Site Prep: chlorhexidine Procedure Details Indication: need for IV access Needle Size/Type: 22 gauge angiocath Orientation: Left Location: Hand Imaging Guidance Used: No SIGNATURE: QUINTIN Siddiqui PATIENT NAME: Dl Parsnos DATE: May 21, 2025 TIME: 10:14 AM CSN: [id number] [facility] 04-30-2025 Note HNO ID: [id number] Author: ARTHUR LUND MD Service: ? Author Type: Physician Type: Progress Notes Filed: 04/30/2025 08:22 Note Text: Documentation Query Please just bill as new case Gonzalo Close out of this note by clicking Cancel Click on the Encounter Button from In [employer] Click addendum [facility] 04-24-2025 Note HNO ID: [id number] Author: ARTHUR LUND MD Service: ? Author Type: Physician Type: Progress Notes Filed: 04/24/2025 09:08 Note Text: CC: Patient with thyroid cancer The patient is a 79-year-old female with hypertension, diabetes mellitus, and hypercholesterolemia, presenting for evaluation and preoperative planning of papillary thyroid cancer. E07.9Thyroid mass [id number] thyroid carcinoma (HCC)HCC Hypertension Specify and Add E11.9Type 2 diabetes mellitus without complicationsHCC Specify and Add E78.00Hypercholesterolemia Add R13.10Dysphagia Specify and Add Z01.818[facility] for preoperative examination for general surgical procedure Papillary Thyroid Cancer: - Dl Parsons presented to the ED with intense neck swelling, which improved with steroids. - Imaging revealed a mass on bilateral thyroid and centered at the isthmus. - Biopsy confirmed papillary thyroid cancer. - No history of MEN syndromes. - No childhood radiation exposure. - Family history: Sister had a benign thyroid mass removed; grandfather of throat cancer. - No smoking or alcohol use. 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 - Dl denies current voice changes or lymphadenopathy. - Previous scope by Dr. Milian showed normal true vocal cord movement. - Dl reports intermittent dysphonia and dysphagia. General: Patient in wheelchair, no acute distress, alert/oriented, well-nourished, normal communication/understanding, normal voice Head/Face: Normocephalic, atraumatic, no obvious lesions Eyes: Extraocular movements intact bilaterally, pupils equal round/reactive, no spontaneous nystagmus, no conjunctival injection, no ectropion/entropion - Neck: supple, nontender, no cervical lymphadenopathy or masses, full ROM, no erythema/induration - Thyroid: enlarged thyroid mass with central protrusion - Lymphatic: No palpable submandibular lesions, no palpable parotid lesions Labs Tests - Laryngoscopy: Normal true vocal cord movement - Laryngoscopy: Normal true vocal cord movement - Biopsy: Consistent with papillary thyroid cancer Imaging - CT: Mass noted in the bilateral thyroid region centered at the isthmus We discussed your diagnosis of papillary thyroid cancer: - You have been diagnosed with papillary thyroid cancer based on biopsy results and imaging findings. - We reviewed your CT scan, and the findings were consistent with the diagnosis. We discussed the treatment plan: - We recommend proceeding with a total thyroidectomy and central neck dissection to address the cancer. - The risks and benefits of surgery were discussed, including: - Temporary or permanent voice changes. - Potential for hypoparathyroidism. - Risk of bleeding and anesthesia-related complications. - You agreed with the plan to proceed with surgery and had all your questions answered to your satisfaction. Assessment / Plan: Patient with papillary thyroid cancer with probable extrathyroidal extension Recommendation for surgery placed -- risks, benefits, alternatives, personnel discussed Next steps: - We will coordinate scheduling for your surgery. Please await further instructions from our office regarding the date and preoperative preparations. Ace Lund MD [facility] 04-24-2025 History of Present illness Narrative CC: Patient with thyroid cancer The patient is a 79-year-old female with hypertension, diabetes mellitus, and hypercholesterolemia, presenting for evaluation and preoperative planning of papillary thyroid cancer. E07.9Thyroid mass [id number] thyroid carcinoma (HCC)HCC Hypertension Specify and Add E11.9Type 2 diabetes mellitus without complicationsHCC Specify and Add E78.00Hypercholesterolemia Add R13.10Dysphagia Specify and Add Z01.818Encounter for preoperative examination for general surgical procedure Papillary Thyroid Cancer: - Dl Robleor Jaqueline presented to the ED with intense neck swelling, which improved with steroids. - Imaging revealed a mass on bilateral thyroid and centered at the isthmus. - Biopsy confirmed papillary thyroid cancer. - No history of MEN syndromes. - No childhood radiation exposure. - Family history: Sister had a benign thyroid mass removed; grandfather of throat cancer. - No smoking or alcohol use. 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 - Dl denies current voice changes or lymphadenopathy. - Previous scope by Dr. Milian showed normal true vocal cord movement. - Dl reports intermittent dysphonia and dysphagia. General: Patient in wheelchair, no acute distress, alert/oriented, well-nourished, normal communication/understanding, normal voice Head/Face: Normocephalic, atraumatic, no obvious lesions Eyes: Extraocular movements intact bilaterally, pupils equal round/reactive, no spontaneous nystagmus, no conjunctival injection, no ectropion/entropion - Neck: supple, nontender, no cervical lymphadenopathy or masses, full ROM, no erythema/induration - Thyroid: enlarged thyroid mass with central protrusion - Lymphatic: No palpable submandibular lesions, no palpable parotid lesions Labs Tests - Laryngoscopy: Normal true vocal cord movement - Laryngoscopy: Normal true vocal cord movement - Biopsy: Consistent with papillary thyroid cancer Imaging - CT: Mass noted in the bilateral thyroid region centered at the isthmus We discussed your diagnosis of papillary thyroid cancer: - You have been diagnosed with papillary thyroid cancer based on biopsy results and imaging findings. - We reviewed your CT scan, and the findings were consistent with the diagnosis. We discussed the treatment plan: - We recommend proceeding with a total thyroidectomy and central neck dissection to address the cancer. - The risks and benefits of surgery were discussed, including: - Temporary or permanent voice changes. - Potential for hypoparathyroidism. - Risk of bleeding and anesthesia-related complications. - You agreed with the plan to proceed with surgery and had all your questions answered to your satisfaction. Assessment / Plan: Patient with papillary thyroid cancer with probable extrathyroidal extension Recommendation for surgery placed -- risks, benefits, alternatives, personnel discussed Next steps: - We will coordinate scheduling for your surgery. Please await further instructions from our office regarding the date and preoperative preparations. Ace Lund MD documented in this encounter [facility] 04-23-2025 Telephone encounter Note AMBULATORY PATIENT EDUCATION NOTE PRE-OP TEACHING TOPIC: SURVIVAL SKILLS: pRE OP PROCEDURE: TOTAL THYROIDECTOMY READINESS TO LEARN COGNITIVE ABILITY: Alert and oriented MOTIVATION TO LEARN: Interested FAMILY SUPPORT: High - Very involved in pt care INSTRUCTION PROVIDED TO: Patient, Family member, and ALENA PATIENT LEARNS BEST BY: Individual Instruction Written Instruction - Hand-outs Verbal Instruction FACTORS AFFECTING LEARNING: None PHYSICAL LIMITATIONS AFFECTING LEARNING: None LEARNING RESPONSE DIAGNOSIS: TOTAL THYROIDECTOMY METHOD OF INSTRUCTION: Individual instruction Written instruction/Handouts Verbal instruction PATIENT / FAMILY RESPONSE: Verbalizes understanding of: PRE-OPERATIVE INSTRUCTIONS-Correct action to take to follow pre-operative instructions FOLLOW-UP PLAN: Patient instructed to call with any further issues SUPPLEMENTAL MATERIAL: Your Surgical Guide REFERRAL (RECOMMENDATION): PAcc Electronically Signed By: Evy Mckeon RN In Department: OTOLARYNGOLOGY [facility] 04-23-2025 Miscellaneous Notes AMBULATORY PATIENT EDUCATION NOTE PRE-OP TEACHING TOPIC: SURVIVAL SKILLS: pRE OP PROCEDURE: TOTAL THYROIDECTOMY READINESS TO LEARN COGNITIVE ABILITY: Alert and oriented MOTIVATION TO LEARN: Interested FAMILY SUPPORT: High - Very involved in pt care INSTRUCTION PROVIDED TO: Patient, Family member, and ALENA PATIENT LEARNS BEST BY: Individual Instruction Written Instruction - Hand-outs Verbal Instruction FACTORS AFFECTING LEARNING: None PHYSICAL LIMITATIONS AFFECTING LEARNING: None LEARNING RESPONSE DIAGNOSIS: TOTAL THYROIDECTOMY METHOD OF INSTRUCTION: Individual instruction Written instruction/Handouts Verbal instruction PATIENT / FAMILY RESPONSE: Verbalizes understanding of: PRE-OPERATIVE INSTRUCTIONS-Correct action to take to follow pre-operative instructions FOLLOW-UP PLAN: Patient instructed to call with any further issues SUPPLEMENTAL MATERIAL: Your Surgical Guide REFERRAL (RECOMMENDATION): PAcc Electronically Signed By: Evy Mckeon RN In Department: OTOLARYNGOLOGY documented in this encounter [facility] 04-19-2025 Instructions Hemalatha Tellez PA-C - 04/19/2025 10:48 AM EDT Images from the original note were not included. [facility] PATIENT PREOPERATIVE INSTRUCTIONS [facility]: --[address] [place] [address]. - To obtain your arrival time for surgery, call your physician's office the day before your surgery. - If you have received different instructions about finding out your arrival time from your surgeon, please follow those instructions. - If your surgery is scheduled for Tuesday, call the Tuesday before. Your surgeon s spinning operator will tell you what time to call the office. - If you have not reached the departmental spinning operator by 5 P.M., call [phone] after 5 P.M. the day before your surgery. Please read below carefully for your personalized instructions. Dietary Restrictions: - No solid food after midnight. - You may have 12 ounces of clear liquids (water, clear juices such as apple juice or gatorade, carbonated beverages, clear tea, black coffee, jello) until 2 hours before scheduled arrival at facility. Medications: Unless instructed differently below, stay on all of your medications until your surgery. If you start any new medications after today's visit, please contact your surgeon. Pre-Surgery Med Instructions Medication Instructions ARNUITY ELLIPTA 100 mcg/actuation inhaler Use day of surgery. amLODIPine (NORVASC) 10 mg tablet If you normally take this medication in the morning, take the morning of surgery. Irbesartan-Hydrochlorothiazide 300-12.5 mg per tablet Do not take the day of surgery atorvastatin (LIPITOR) 10 mg tablet If you normally take this medication in the morning, take the morning of surgery. levothyroxine (LEVOXYL) 75 mcg tablet If you normally take this medication in the morning, take the morning of surgery. lansoprazole (PREVACID) 30 mg capsule If you normally take this medication in the morning, take the morning of surgery. metoprolol tartrate, short acting, (LOPRESSOR) 25 mg tablet If you normally take this medication in the morning, take the morning of surgery. potassium chloride SR (MICRO-K) 8 mEq cpER Do not take the day of surgery metFORMIN (GLUCOPHAGE) 500 mg tablet Do not take the day of surgery albuterol HFA (PROVENTIL HFA, VENTOLIN HFA) 90 mcg/actuation inhaler Continue as needed If you start any new medications after today's visit, please contact the surgeon's office. If you are currently using a [id number] injectable or oral medication for diabetes or weight loss such as Dulaglutide (Trulicity), Exenatide (Byetta, Bydureon), Liraglutide (Victoza, Saxenda), Semaglutide (Ozempic, Wegovy, Rybelsus), or Tirzepatide (Mounjaro), the medicine should be stopped at least 7 days before surgery. These medicines can cause food to remain in your stomach for a very long time and increase the risks from surgery and anesthesia. Not stopping the medication for a long enough time may result in your surgery being rescheduled. Blood Thinning Medications: - Stop NSAIDS (Ibuprofen, Advil, Aleve, Motrin, Celebrex, Mobic, etc.) 7 days before surgery, as directed by your surgeon. - Stop Aspirin 7 days before surgery, as directed by your surgeon. - Stop ALL herbal and dietary supplements 7 days before surgery. - You may take Tylenol (Acetaminophen) or any of your pain medications that do not contain aspirin or NSAIDS as needed. Important Reminders: - If you use CPAP/BIPAP, bring the machine with you to the surgery center. - If you are prescribed inhalers for breathing, continue using them. Bring your inhalers with you. - Candy, gum, mints, and tobacco products are NOT permitted the morning of surgery. Do not smoke or vape the morning of surgery. - Hearing aids, dentures and glasses may be worn the morning of surgery. - NO jewelry, body piercings, makeup, hairpins or contacts are to be worn the day of surgery. If you develop symptoms such as a fever, cold, or flu, or have other changes to your health within TWO DAYS of scheduled surgery or the morning of surgery, please contact the surgery center above. Personal Belongings: -Please have photo ID and insurance cards. -If you do not have a copy of advance directives on file with us, please bring a copy with you on the day of surgery. - Leave ALL valuables and money at home or with family members. - Please bring high-quality footwear, such as sneakers, to the hospital for ambulating post-surgery. Please be aware that emergency situations arise, which may delay or change your surgical time. If this happens, we will notify you as soon as possible and regret any inconvenience. If you already have an Advance Directive, please fax a copy to [phone] or email to for it to be added to your chart. If you do not have an Advance Directive, you can find the appropriate form and more information at [email or web address]. We recommend that you complete the Advance Directive form found on the website and bring it with you the day of your surgery. It can be witnessed and scanned into your chart that day. documented in this encounter [facility] 04-19-2025 History and physical note Images from the original note were not included. [facility] HISTORY AND PHYSICAL EXAMINATION SERVICE DATE: 04/19/2025 SERVICE TIME: 10:48 AM PRIMARY CARE PHYSICIAN: Kaitlyn Condon MD Assessment Patient has the following medical conditions which may affect betina-operative course: Class 2 obesity due to excess calories without serious comorbidity with body mass index (BMI) of 36.0 to 36.9 in adult Assessment: Body mass index is 36.64 kg/m . Microcytic anemia Assessment: CBC pending. Latest Ref Rng & Units 07/26/2019 03/10/2020 03/17/2025 CBC WBC 3.70 - 11.00 k/uL 8.73 7.95 8.90 RBC 3.90 - 5.20 m/uL 4.58 4.77 4.26 Hemoglobin 11.5 - 15.5 g/dL 12.3 12.9 11.2 Hematocrit 36.0 - 46.0 % 37.9 41.9 34.1 MCV 80.0 - 100.0 fL 82.8 87.8 80.0 MCH 26.0 - 34.0 pg 26.9 27.0 26.3 MCHC 30.5 - 36.0 g/dL 32.5 30.8 32.8 RDW-CV 11.5 - 15.0 % 14.7 14.6 15.5 Platelet Count 150 - 400 k/uL 400 436 314 MPV 9.0 - 12.7 fL 9.6 10.3 9.6 Baso% % 0.3 Abs Neut (ANC) 1.45 - 7.50 k/uL 7.37 Abs Lymph 1.00 - 4.00 k/uL 0.92 Abs [place] <0.87 k/uL 0.40 Abs Eosin <0.46 k/uL 0.13 Abs Baso <0.11 k/uL 0.03 NRBC /100 WBC 0.0 Hypothyroid Assessment: On levothyroxine. TSH Date Value Ref Range Status 03/17/2025 1.120 0.270 - 4.200 mIU/L Final MYLES (obstructive sleep apnea) Assessment: Unable to tolerate CPAP. Uses supplemental O2 QHS, 2.5L NC. Moderate persistent asthma without complication Assessment: Stable, uses Arnuity daily and albuterol PRN. Managed by PCP. Pt reports she uses albuterol more frequently with hot/humid weather. Pt was instructed after discharge last month to use albuterol daily prior to using Arnuity, which she has been doing up until 2 days ago. She reports that she has not needed albuterol for the past two days. Pt reports that she is able to climb a flight of stairs at home, but has to stop after 3 steps due to leg fatigue/weakness, denies Shortness of Breath. Lungs CTAB, SpO2 97% on RA. Mixed hyperlipidemia Assessment: On Lipitor. Essential hypertension Assessment: Controlled on current medication regimen, BP today 144/76. Last 14 BP Last 14 Encounter BP Readings: Date: BP: 04/19/2025 144/76 03/20/2025 135/70 03/15/2025 125/83 03/12/2020 118/70 11/27/2019 139/86 09/11/2019 134/71[Home wrist cuff[ 08/27/2019 132/70 08/23/2019 150/88 07/25/2019 133/78 07/25/2019 172/92 07/19/2019 144/76 07/02/2019 148/84 03/02/2019 128/68 12/14/2018 138/70 ESOPHAGEAL REFLUX Assessment: Stable, sx managed on Prevacid PRN. Diabetes mellitus type 2, uncomplicated (HCC) Assessment: Compliant on metformin. Does monitor BG at home, FBS ~140-150s. A1C 7.5% 03/2025. Managed by PCP. Hemoglobin A1C (%) Date Value 03/17/2025 7.5 03/10/2020 7.1 07/26/2019 7.0 06/27/2019 6.9 02/21/2019 6.8 11/24/2018 6.9 Leg edema Assessment: Pt reports edema by the end of the day. Swelling is controlled with compression stockings. Trace edema BLE on exam today. ANESTHESIA FINDINGS: Intubation History: No history of difficult intubation. No abnormal airway history Significant Anesthesia Considerations: Pt reports slow emergence from cholecystectomy 2019. potential slow emergence Airway History: No history of difficult airway No abnormal airway history [place] Activity Status Index: METS: Walk indoors, such as around the house (1.75 METs) Do light work around the house, such as dusting or washing dishes (2.70 METs) Take care of self; that is eating, dressing, bathing, using the toilet (2.75 METs) Walk a block or two on level ground (2.75 METs) Do moderate work around the house, such as vacuuming, sweeping floors, or carrying in groceries (3.50 METs) Climb a flight of stairs or walk up a hill (5.50 METs) DASI Score: 18.95 (Limited due to weakness in legs, has climbed the stairs in her house recently and has to stop after ~3 steps due to fatigue in her legs) Patient denies any chest pain or undue shortness of breath with the above physical activity. Clinical Frailty Scale: 4. Apparently vulnerable STOP-Bang Score: STOP-Bang Score: (+MYLES - unable to tolerate CPAP, uses 2.5L O2 QHS) [id number] Score: Age: >=75 Sex: female CHF history: No Hypertension history: Yes Stroke/TIA/thromboembolism history: No Vascular disease history: No Diabetes history: Yes [id number] Score: 5 I - PHYSICAL EVALUATION AIRWAY Patient intubated: No. Tracheostomy tube not present Mallampati: III. TM distance: >3 FB. Neck ROM: limited extension. Mouth openin FB. Short neck: no. Thick neck: no Lip Bite Test: I Microretrognathia/Micronagthia/Rec essed Chin: No DENTAL Dental findings: teeth intact and bridge. II - ANESTHESIA PLAN Anesthetic Plan: other Anesthetic plan additional comments: *PACC/TCI - anesthesia choice. Informed Consent Prepared for Surgery: optimally prepared for surgery, pending [see comment]. LABS, CXR, and ECG. CONSULTS: Patient does not require consults for optimization at this time Planned Anesthetic: other anesthesia choice The Following Tests/Procedures Have Been Initiated: Orders placed by surgeon/surgical service in [facility]. Orders Placed This Encounter XR CHEST 2V FRONTAL/LAT Standing Status: Future Number of Occurrences: 1 Expected Date: 04/19/2025 Expiration Date: 05/19/2026 Confirm Blood Type Standing Status: Future Number of Occurrences: 1 Expected Date: 04/19/2025 Expiration Date: 07/19/2025 Did Blood Bank direct you to place this order:: No - Presurgical Workflow ECG (IN OFFICE) REASON FOR VISIT: Dl Parsons is a 79 year old female who is scheduled for Procedure(s): THYROIDECTOMY TOTAL (Bilateral) at the request of Arthur Baird MD for consultation. My final recommendation will be communicated back to the requesting physician by way of shared medical record or letter. Subjective The patient has the following: ACTIVE PROBLEM LIST Essential Hypertension Esophageal Reflux Myles (Obstructive Sleep Apnea) Class 2 Obesity Due to Excess Calories Without Serious Comorbidity With Body Mass Index (Bmi) of 36.0 to 36.9 in Adult Abnormal Mammogram Vitamin D Deficiency Chronic Lymphocytic Thyroiditis Thyroiditis Osteopenia Hypothyroid Asthma (Hcc) Diabetes Mellitus Type 2, Uncomplicated (Hcc) Hemorrhage of Gastrointestinal Tract, Unspecified Diastolic Dysfunction Aortic Valve Sclerosis Mixed Hyperlipidemia Family History of Ischemic Heart Disease Ataxia Moderate Persistent Asthma Without Complication (Hcc) Thyroid Mass Microcytic Anemia Hyponatremia Abnormal Blood Electrolyte Level Dysphagia Increased Urinary Frequency Hypoxia Dyspnea Leg Edema Skilled Nursing (Current) Use of Oral Hypoglycemic Drugs COVID-19 Immunization Status This patient has no relevant Health Maintenance data. CHIEF COMPLAINT: thyroid cancer HPI: Dl Parsons is a 79 year old female presenting for pre-anesthesia consultation with sister and [id number]. Pt has history of painful neck mass and swelling. She was admitted 03/16-03/18/25. Bx was done and revealed PTC. Above procedure recommended. Procedure will be performed at but is not scheduled yet. She is meeting with the surgeon next week on 04/23/25. REVIEW OF SYSTEMS: General: Negative for: fever. Neurological: Negative for: multiple sclerosis, Parkinson's disease, seizures, TIA and strokes. Respiratory: Positive for: asthma (on Arnuity and albuterol PRN (uses more frequently with hot/humid weather)), home oxygen, obstructive sleep apnea (uses 2.5L O2 QHS) and CPAP/BiPAP compliant. Patient is on 2.5L QHS liter(s) of home O2. Negative for: current cough, pneumonia within 6 weeks, tobacco use and URI < 2 weeks. Cardiovascular: Positive for: hyperlipidemia and hypertension Negative for: AICD/PPM, arrhythmia, atrial fibrillation, CHF, DVT/PE, recent SC, murmur/valvular heart disease, PTCA, open heart surgery and valve surgery. GI: Positive for: GERD Negative for: hepatitis, irritable bowel syndrome, inflammatory bowel disease, liver disease and ETOH >2 drinks/day. : Positive for: urinary incontinence. Negative for: dysuria, frequent urination, hematuria, renal failure and urinary tract infection. Endocrine: See HPI. Positive for: diabetes mellitus (A1C 7.5% 03/2025, FBS ~140-150s) and hypothyroidism. Patient's diabetes mellitus is controlled by oral agents. Negative for: hyperthyroidism and steroid for chronic problem. Hematology: Positive for: anemia. Negative for: factor V Leiden, hemophilia, thrombocytopenia, von Willebrand disease and chronic anti-coagulation/platelet meds. Oncology: See HPI. +H/o skin cancer Musculoskeletal: Positive for: joint pain (knees) and swelling (by end of day). Skin: Negative for lesions, rash and itching. Implanted Devices: No implanted devices. PAST MEDICAL HISTORY Diagnosis Date Benign neoplasm of colon Chest pain, unspecified Dermatitis herpetiformis Diabetes mellitus (HCC) Esophageal reflux Hemorrhage of gastrointestinal tract, unspecified Hypothyroidism Other specified disease of hair and hair follicles Pure hypercholesterolemia Snoring Unspecified asthma(493.90) Dr. Ricketts had seen in the past Unspecified constipation Unspecified essential hypertension PAST SURGICAL HISTORY Procedure Laterality Date APPENDECTOMY COLONOSCOPY FLX DX W/COLLJ SPEC WHEN PFRMD 11/1999 Colonoscopy COLONOSCOPY FLX DX W/COLLJ SPEC WHEN PFRMD 09/20/2007 Colonoscopy COLONOSCOPY FLX DX W/COLLJ SPEC WHEN PFRMD 12/05/2014 Colonoscopy COLONOSCOPY FLX DX W/COLLJ SPEC WHEN PFRMD 10/23/2018 Colonoscopy COLSC FLX W/RMVL OF TUMOR POLYP LESION SNARE TQ 11/07/2012 small polyps asc and hepatic, diverticulosis - moderate DILATION & CURETTAGE DX&/THER NONOBSTETRIC EGD TRANSORAL BIOPSY SINGLE/MULTIPLE 11/07/2012 fundic polyps, minimal gastritis ESOPHAGOGASTRODUODENOSCOPY TRANSORAL DIAGNOSTIC 10/23/2018 EGD REMOVAL GALLBLADDER 2019 TOTAL ABDOMINAL HYSTERECT W/WO RMVL TUBE OVARY WITH BSO FAMILY HISTORY Problem Relation Age of Onset Diabetes Mother open heart surgery Diabetes Father Several SC's Colon Cancer Father Cancer Sister thyroid cancer other (Multiple Myeloma) Sister Colon Cancer Paternal Grandmother Cancer Paternal Grandfather throat and stomach Malig Hyperthermia No Family History SOCIAL HISTORY[1] Prior to Admission medications as of 04/19/25 1106 Medication Sig Last Dose Taking ferrous sulfate 325 mg (65 mg iron) tablet Take 1 tablet by mouth every other day. Yes ARNUITY ELLIPTA 100 mcg/actuation inhaler Inhale 2 puffs as instructed once daily. Yes amLODIPine (NORVASC) 10 mg tablet Take 1 tablet by mouth once daily. Yes Irbesartan-Hydrochlorothiazide 300-12.5 mg per tablet Take 1 tablet by mouth once daily. replaces losartan hctz Yes atorvastatin (LIPITOR) 10 mg tablet Take 1 tablet by mouth once daily. Yes cholecalciferol, Vitamin D3, (VITAMIN D3) 1,250 mcg (50,000 unit) cap capsule Take 1 capsule by mouth one time a week. Yes levothyroxine (LEVOXYL) 75 mcg tablet Take 1 tablet by mouth once daily. Yes lansoprazole (PREVACID) 30 mg capsule Take one capsule every other day. Yes metoprolol tartrate, short acting, (LOPRESSOR) 25 mg tablet Take 1 tablet by mouth twice daily. Yes potassium chloride SR (MICRO-K) 8 mEq cpER Take 1 capsule by mouth twice daily. Yes metFORMIN (GLUCOPHAGE) 500 mg tablet Take 2 tablets by mouth twice daily with meals. Patient taking differently: Take 500 mg by mouth two times a day with meals. 1 tablet in the morning and 2 tablets in the evening Yes albuterol HFA (PROVENTIL HFA, VENTOLIN HFA) 90 mcg/actuation inhaler Inhale 2 Puffs as instructed four times daily. Yes blood sugar diagnostic (ACCU-CHEK MIMI PLUS TEST STRP) test strip Test blood sugar(s) 1 time daily and as needed for symptoms of high or low sugar. Dx: Type 2 DM - Controlled E11.9 Insulin: No Lancets lancets Test blood sugar(s) 1 x daily and as needed. Dx: E11.9. Insulin: No Lancing Device with Lancets (ACCU-CHEK SOFT DEV LANCETS) Check sugars daily and as needed. E11.9 DM type 2, Insulin: No blood sugar diagnostic (BLOOD GLUCOSE TEST) test strip Test blood sugar(s) 1 time daily and as needed for symptoms of high or low sugar . Dx: Type 2 DM - Controlled E11.9 Insulin: No Blood Glucose Control, Normal (CONTOUR CONTROL SOLUTION, NML) Misc Soln As intstructed. No medication comments found. ALLERGIES Allergen Reactions Citracal [Calcium C* Other: See Comments constipation Pravastatin Other: See Comments Achy joints, legs felt "like lead" Penicillins Rash Sulfa (Sulfonamide * Rash Zoloft [Sertraline * Rash Objective PHYSICAL EXAM: General: alert and oriented and obese. Pertinent negatives noted - not distressed. Skin: normal color, no rash or lesions. HEENT: EOM intact and pupils equal round. Pertinent negatives noted - no carotid bruit. Cardiovascular: regular rate and rhythm, normal S1 and S2, no rub, murmurs, or gallop. Pulse characterized as regular.No radial pulse abnormalities. Respiratory: normal breath sounds, no wheezes or crackles. Abdomen: Pertinent negatives noted - not distended. Extremities: Positive for edema (trace edema BLE). Pertinent negatives noted - no cellulitis, no clubbing and no deformity. Neurological: normal cognition and motor skills. PAIN ASSESSMENT: Pain Pain Level: 3 Pain Location: Throat Description: Aching Duration Units: Months Frequency: Continuous VITALS: BP 144/76 Pulse 68 Temp (Src) 97.9 (Oral) Resp 16 Ht 5' 0" (1.52m) Wt 187 lb 9.8 oz (85.1kg) SpO2 97% BMI 36.64 kg/(m^2). Diagnostic tests reviewed for today's visit: Lab Value Units Date High Low HB 12.5 g/dL 04/19/2025 15.5 11.5 HCT 37.7 % 04/19/2025 46.0 36.0 WBC 9.63 k/uL 04/19/2025 11.00 3.70 PLT 360 k/uL 04/19/2025 400 150 NA 135 mmol/L 03/17/2025 144 136 K 3.7 mmol/L 03/17/2025 5.1 3.7 GLUC 172 mg/dL 03/17/2025 99 74 BUN 4 mg/dL 03/17/2025 21 7 CREAT 0.56 mg/dL 03/17/2025 0.96 0.58 PTSEC No results within date range. INR No results within date range. APTT No results within date range. ALT 25 U/L 03/17/2025 38 7 AST 12 U/L 03/17/2025 35 13 TBILI 1.3 mg/dL 03/17/2025 1.3 0.2 TSH 1.120 mIU/L 03/17/2025 4.200 0.270 Lab Value Units Date High Low HCGQT No results within date range. UHCG No results within date range. HCG, BODY* No results within date range. Lab Value Units Date High Low ABORHD No results within date range. ABSCREEN No results within date range. Hemoglobin A1C (%) Date Value 03/17/2025 7.5 03/10/2020 7.1 07/26/2019 7.0 06/27/2019 6.9 02/21/2019 6.8 11/24/2018 6.9 Recent Results (from the past 8760 hours) ECG COMPLETE Collection Time: 04/19/25 10:09 AM Result Value Ventricular Rate 64 Atrial Rate 64 P-R Interval 172 QRS Duration 86 QT Interval 414 QTC Calculation (Bazett) 427 Calculated P [place] 44 Calculated R [place] -9 Calculated T [place] 61 Impression NORMAL SINUS RHYTHM POSSIBLE ANTERIOR MYOCARDIAL INFARCTION , AGE UNDETERMINED ABNORMAL ECG No results found for this or any previous visit (from the past 40268 hours). Instructions Given to Patient: Instructions located in the after visit summary. Patient given verbal and written preop instructions and voices comprehension and compliance. SIGNATURE: Hemalatha Tellez PA-C PATIENT NAME: Dl Parsons DATE: 04/19/2025 TIME: 10:48 AM PAGER/CONTACT #: [1] Social History Tobacco Use Smoking status: Never Smokeless tobacco: Never Vaping Use Vaping status: Never Used Substance Use Topics Alcohol use: No Drug use: No [facility] 04-19-2025 History and physical note Images from the original note were not included. [facility] HISTORY AND PHYSICAL EXAMINATION SERVICE DATE: 04/19/2025 SERVICE TIME: 10:48 AM PRIMARY CARE PHYSICIAN: Kaitlyn Condon MD Assessment Patient has the following medical conditions which may affect betina-operative course: Class 2 obesity due to excess calories without serious comorbidity with body mass index (BMI) of 36.0 to 36.9 in adult Assessment: Body mass index is 36.64 kg/m . Microcytic anemia Assessment: CBC pending. Latest Ref Rng & Units 07/26/2019 03/10/2020 03/17/2025 CBC WBC 3.70 - 11.00 k/uL 8.73 7.95 8.90 RBC 3.90 - 5.20 m/uL 4.58 4.77 4.26 Hemoglobin 11.5 - 15.5 g/dL 12.3 12.9 11.2 Hematocrit 36.0 - 46.0 % 37.9 41.9 34.1 MCV 80.0 - 100.0 fL 82.8 87.8 80.0 MCH 26.0 - 34.0 pg 26.9 27.0 26.3 MCHC 30.5 - 36.0 g/dL 32.5 30.8 32.8 RDW-CV 11.5 - 15.0 % 14.7 14.6 15.5 Platelet Count 150 - 400 k/uL 400 436 314 MPV 9.0 - 12.7 fL 9.6 10.3 9.6 Baso% % 0.3 Abs Neut (ANC) 1.45 - 7.50 k/uL 7.37 Abs Lymph 1.00 - 4.00 k/uL 0.92 Abs [place] <0.87 k/uL 0.40 Abs Eosin <0.46 k/uL 0.13 Abs Baso <0.11 k/uL 0.03 NRBC /100 WBC 0.0 Hypothyroid Assessment: On levothyroxine. TSH Date Value Ref Range Status 03/17/2025 1.120 0.270 - 4.200 mIU/L Final MYLES (obstructive sleep apnea) Assessment: Unable to tolerate CPAP. Uses supplemental O2 QHS, 2.5L NC. Moderate persistent asthma without complication Assessment: Stable, uses Arnuity daily and albuterol PRN. Managed by PCP. Pt reports she uses albuterol more frequently with hot/humid weather. Pt was instructed after discharge last month to use albuterol daily prior to using Arnuity, which she has been doing up until 2 days ago. She reports that she has not needed albuterol for the past two days. Pt reports that she is able to climb a flight of stairs at home, but has to stop after 3 steps due to leg fatigue/weakness, denies Shortness of Breath. Lungs CTAB, SpO2 97% on RA. Mixed hyperlipidemia Assessment: On Lipitor. Essential hypertension Assessment: Controlled on current medication regimen, BP today 144/76. Last 14 BP Last 14 Encounter BP Readings: Date: BP: 04/19/2025 144/76 03/20/2025 135/70 03/15/2025 125/83 03/12/2020 118/70 11/27/2019 139/86 09/11/2019 134/71[Home wrist cuff[ 08/27/2019 132/70 08/23/2019 150/88 07/25/2019 133/78 07/25/2019 172/92 07/19/2019 144/76 07/02/2019 148/84 03/02/2019 128/68 12/14/2018 138/70 ESOPHAGEAL REFLUX Assessment: Stable, sx managed on Prevacid PRN. Diabetes mellitus type 2, uncomplicated (HCC) Assessment: Compliant on metformin. Does monitor BG at home, FBS ~140-150s. A1C 7.5% 03/2025. Managed by PCP. Hemoglobin A1C (%) Date Value 03/17/2025 7.5 03/10/2020 7.1 07/26/2019 7.0 06/27/2019 6.9 02/21/2019 6.8 11/24/2018 6.9 Leg edema Assessment: Pt reports edema by the end of the day. Swelling is controlled with compression stockings. Trace edema BLE on exam today. ANESTHESIA FINDINGS: Intubation History: No history of difficult intubation. No abnormal airway history Significant Anesthesia Considerations: Pt reports slow emergence from cholecystectomy 2019. potential slow emergence Airway History: No history of difficult airway No abnormal airway history [place] Activity Status Index: METS: Walk indoors, such as around the house (1.75 METs) Do light work around the house, such as dusting or washing dishes (2.70 METs) Take care of self; that is eating, dressing, bathing, using the toilet (2.75 METs) Walk a block or two on level ground (2.75 METs) Do moderate work around the house, such as vacuuming, sweeping floors, or carrying in groceries (3.50 METs) Climb a flight of stairs or walk up a hill (5.50 METs) DASI Score: 18.95 (Limited due to weakness in legs, has climbed the stairs in her house recently and has to stop after ~3 steps due to fatigue in her legs) Patient denies any chest pain or undue shortness of breath with the above physical activity. Clinical Frailty Scale: 4. Apparently vulnerable STOP-Bang Score: STOP-Bang Score: (+MYLES - unable to tolerate CPAP, uses 2.5L O2 QHS) [id number] Score: Age: >=75 Sex: female CHF history: No Hypertension history: Yes Stroke/TIA/thromboembolism history: No Vascular disease history: No Diabetes history: Yes [id number] Score: 5 I - PHYSICAL EVALUATION AIRWAY Patient intubated: No. Tracheostomy tube not present Mallampati: III. TM distance: >3 FB. Neck ROM: limited extension. Mouth openin FB. Short neck: no. Thick neck: no Lip Bite Test: I Microretrognathia/Micronagthia/Rec essed Chin: No DENTAL Dental findings: teeth intact and bridge. II - ANESTHESIA PLAN Anesthetic Plan: other Anesthetic plan additional comments: *PACC/TCI - anesthesia choice. Informed Consent Prepared for Surgery: optimally prepared for surgery, pending [see comment]. LABS, CXR, and ECG. CONSULTS: Patient does not require consults for optimization at this time Planned Anesthetic: other anesthesia choice The Following Tests/Procedures Have Been Initiated: Orders placed by surgeon/surgical service in [facility]. Orders Placed This Encounter XR CHEST 2V FRONTAL/LAT Standing Status: Future Number of Occurrences: 1 Expected Date: 04/19/2025 Expiration Date: 05/19/2026 Confirm Blood Type Standing Status: Future Number of Occurrences: 1 Expected Date: 04/19/2025 Expiration Date: 07/19/2025 Did Blood Bank direct you to place this order:: No - Presurgical Workflow ECG (IN OFFICE) REASON FOR VISIT: Dl Parsons is a 79 year old female who is scheduled for Procedure(s): THYROIDECTOMY TOTAL (Bilateral) at the request of Arthur Baird MD for consultation. My final recommendation will be communicated back to the requesting physician by way of shared medical record or letter. Subjective The patient has the following: ACTIVE PROBLEM LIST Essential Hypertension Esophageal Reflux Myles (Obstructive Sleep Apnea) Class 2 Obesity Due to Excess Calories Without Serious Comorbidity With Body Mass Index (Bmi) of 36.0 to 36.9 in Adult Abnormal Mammogram Vitamin D Deficiency Chronic Lymphocytic Thyroiditis Thyroiditis Osteopenia Hypothyroid Asthma (Hcc) Diabetes Mellitus Type 2, Uncomplicated (Hcc) Hemorrhage of Gastrointestinal Tract, Unspecified Diastolic Dysfunction Aortic Valve Sclerosis Mixed Hyperlipidemia Family History of Ischemic Heart Disease Ataxia Moderate Persistent Asthma Without Complication (Hcc) Thyroid Mass Microcytic Anemia Hyponatremia Abnormal Blood Electrolyte Level Dysphagia Increased Urinary Frequency Hypoxia Dyspnea Leg Edema Manager Spanish (Current) Use of Oral Hypoglycemic Drugs COVID-19 Immunization Status This patient has no relevant Health Maintenance data. CHIEF COMPLAINT: thyroid cancer HPI: Dl Parsons is a 79 year old female presenting for pre-anesthesia consultation with sister and [id number]. Pt has history of painful neck mass and swelling. She was admitted 03/16-03/18/25. Bx was done and revealed PTC. Above procedure recommended. Procedure will be performed at but is not scheduled yet. She is meeting with the surgeon next week on 04/23/25. REVIEW OF SYSTEMS: General: Negative for: fever. Neurological: Negative for: multiple sclerosis, Parkinson's disease, seizures, TIA and strokes. Respiratory: Positive for: asthma (on Arnuity and albuterol PRN (uses more frequently with hot/humid weather)), home oxygen, obstructive sleep apnea (uses 2.5L O2 QHS) and CPAP/BiPAP compliant. Patient is on 2.5L QHS liter(s) of home O2. Negative for: current cough, pneumonia within 6 weeks, tobacco use and URI < 2 weeks. Cardiovascular: Positive for: hyperlipidemia and hypertension Negative for: AICD/PPM, arrhythmia, atrial fibrillation, CHF, DVT/PE, recent SC, murmur/valvular heart disease, PTCA, open heart surgery and valve surgery. GI: Positive for: GERD Negative for: hepatitis, irritable bowel syndrome, inflammatory bowel disease, liver disease and ETOH >2 drinks/day. : Positive for: urinary incontinence. Negative for: dysuria, frequent urination, hematuria, renal failure and urinary tract infection. Endocrine: See HPI. Positive for: diabetes mellitus (A1C 7.5% 03/2025, FBS ~140-150s) and hypothyroidism. Patient's diabetes mellitus is controlled by oral agents. Negative for: hyperthyroidism and steroid for chronic problem. Hematology: Positive for: anemia. Negative for: factor V Leiden, hemophilia, thrombocytopenia, von Willebrand disease and chronic anti-coagulation/platelet meds. Oncology: See HPI. +H/o skin cancer Musculoskeletal: Positive for: joint pain (knees) and swelling (by end of day). Skin: Negative for lesions, rash and itching. Implanted Devices: No implanted devices. PAST MEDICAL HISTORY Diagnosis Date Benign neoplasm of colon Chest pain, unspecified Dermatitis herpetiformis Diabetes mellitus (HCC) Esophageal reflux Hemorrhage of gastrointestinal tract, unspecified Hypothyroidism Other specified disease of hair and hair follicles Pure hypercholesterolemia Snoring Unspecified asthma(493.90) Dr. Ricketts had seen in the past Unspecified constipation Unspecified essential hypertension PAST SURGICAL HISTORY Procedure Laterality Date APPENDECTOMY COLONOSCOPY FLX DX W/COLLJ SPEC WHEN PFRMD 11/1999 Colonoscopy COLONOSCOPY FLX DX W/COLLJ SPEC WHEN PFRMD 09/20/2007 Colonoscopy COLONOSCOPY FLX DX W/COLLJ SPEC WHEN PFRMD 12/05/2014 Colonoscopy COLONOSCOPY FLX DX W/COLLJ SPEC WHEN PFRMD 10/23/2018 Colonoscopy COLSC FLX W/RMVL OF TUMOR POLYP LESION SNARE TQ 11/07/2012 small polyps asc and hepatic, diverticulosis - moderate DILATION & CURETTAGE DX&/THER NONOBSTETRIC EGD TRANSORAL BIOPSY SINGLE/MULTIPLE 11/07/2012 fundic polyps, minimal gastritis ESOPHAGOGASTRODUODENOSCOPY TRANSORAL DIAGNOSTIC 10/23/2018 EGD REMOVAL GALLBLADDER 2019 TOTAL ABDOMINAL HYSTERECT W/WO RMVL TUBE OVARY WITH BSO FAMILY HISTORY Problem Relation Age of Onset Diabetes Mother open heart surgery Diabetes Father Several SC's Colon Cancer Father Cancer Sister thyroid cancer other (Multiple Myeloma) Sister Colon Cancer Paternal Grandmother Cancer Paternal Grandfather throat and stomach Malig Hyperthermia No Family History SOCIAL HISTORY[1] Prior to Admission medications as of 04/19/25 1106 Medication Sig Last Dose Taking ferrous sulfate 325 mg (65 mg iron) tablet Take 1 tablet by mouth every other day. Yes ARNUITY ELLIPTA 100 mcg/actuation inhaler Inhale 2 puffs as instructed once daily. Yes amLODIPine (NORVASC) 10 mg tablet Take 1 tablet by mouth once daily. Yes Irbesartan-Hydrochlorothiazide 300-12.5 mg per tablet Take 1 tablet by mouth once daily. replaces losartan hctz Yes atorvastatin (LIPITOR) 10 mg tablet Take 1 tablet by mouth once daily. Yes cholecalciferol, Vitamin D3, (VITAMIN D3) 1,250 mcg (50,000 unit) cap capsule Take 1 capsule by mouth one time a week. Yes levothyroxine (LEVOXYL) 75 mcg tablet Take 1 tablet by mouth once daily. Yes lansoprazole (PREVACID) 30 mg capsule Take one capsule every other day. Yes metoprolol tartrate, short acting, (LOPRESSOR) 25 mg tablet Take 1 tablet by mouth twice daily. Yes potassium chloride SR (MICRO-K) 8 mEq cpER Take 1 capsule by mouth twice daily. Yes metFORMIN (GLUCOPHAGE) 500 mg tablet Take 2 tablets by mouth twice daily with meals. Patient taking differently: Take 500 mg by mouth two times a day with meals. 1 tablet in the morning and 2 tablets in the evening Yes albuterol HFA (PROVENTIL HFA, VENTOLIN HFA) 90 mcg/actuation inhaler Inhale 2 Puffs as instructed four times daily. Yes blood sugar diagnostic (ACCU-CHEK MIMI PLUS TEST STRP) test strip Test blood sugar(s) 1 time daily and as needed for symptoms of high or low sugar. Dx: Type 2 DM - Controlled E11.9 Insulin: No Lancets lancets Test blood sugar(s) 1 x daily and as needed. Dx: E11.9. Insulin: No Lancing Device with Lancets (ACCU-CHEK SOFT DEV LANCETS) Check sugars daily and as needed. E11.9 DM type 2, Insulin: No blood sugar diagnostic (BLOOD GLUCOSE TEST) test strip Test blood sugar(s) 1 time daily and as needed for symptoms of high or low sugar . Dx: Type 2 DM - Controlled E11.9 Insulin: No Blood Glucose Control, Normal (CONTOUR CONTROL SOLUTION, NML) Misc Soln As intstructed. No medication comments found. ALLERGIES Allergen Reactions Citracal [Calcium C* Other: See Comments constipation Pravastatin Other: See Comments Achy joints, legs felt "like lead" Penicillins Rash Sulfa (Sulfonamide * Rash Zoloft [Sertraline * Rash Objective PHYSICAL EXAM: General: alert and oriented and obese. Pertinent negatives noted - not distressed. Skin: normal color, no rash or lesions. HEENT: EOM intact and pupils equal round. Pertinent negatives noted - no carotid bruit. Cardiovascular: regular rate and rhythm, normal S1 and S2, no rub, murmurs, or gallop. Pulse characterized as regular.No radial pulse abnormalities. Respiratory: normal breath sounds, no wheezes or crackles. Abdomen: Pertinent negatives noted - not distended. Extremities: Positive for edema (trace edema BLE). Pertinent negatives noted - no cellulitis, no clubbing and no deformity. Neurological: normal cognition and motor skills. PAIN ASSESSMENT: Pain Pain Level: 3 Pain Location: Throat Description: Aching Duration Units: Months Frequency: Continuous VITALS: BP 144/76 Pulse 68 Temp (Src) 97.9 (Oral) Resp 16 Ht 5' 0" (1.52m) Wt 187 lb 9.8 oz (85.1kg) SpO2 97% BMI 36.64 kg/(m^2). Diagnostic tests reviewed for today's visit: Lab Value Units Date High Low HB 12.5 g/dL 04/19/2025 15.5 11.5 HCT 37.7 % 04/19/2025 46.0 36.0 WBC 9.63 k/uL 04/19/2025 11.00 3.70 PLT 360 k/uL 04/19/2025 400 150 NA 135 mmol/L 03/17/2025 144 136 K 3.7 mmol/L 03/17/2025 5.1 3.7 GLUC 172 mg/dL 03/17/2025 99 74 BUN 4 mg/dL 03/17/2025 21 7 CREAT 0.56 mg/dL 03/17/2025 0.96 0.58 PTSEC No results within date range. INR No results within date range. APTT No results within date range. ALT 25 U/L 03/17/2025 38 7 AST 12 U/L 03/17/2025 35 13 TBILI 1.3 mg/dL 03/17/2025 1.3 0.2 TSH 1.120 mIU/L 03/17/2025 4.200 0.270 Lab Value Units Date High Low HCGQT No results within date range. UHCG No results within date range. HCG, BODY* No results within date range. Lab Value Units Date High Low ABORHD No results within date range. ABSCREEN No results within date range. Hemoglobin A1C (%) Date Value 03/17/2025 7.5 03/10/2020 7.1 07/26/2019 7.0 06/27/2019 6.9 02/21/2019 6.8 11/24/2018 6.9 Recent Results (from the past 8760 hours) ECG COMPLETE Collection Time: 04/19/25 10:09 AM Result Value Ventricular Rate 64 Atrial Rate 64 P-R Interval 172 QRS Duration 86 QT Interval 414 QTC Calculation (Bazett) 427 Calculated P [place] 44 Calculated R [place] -9 Calculated T [place] 61 Impression NORMAL SINUS RHYTHM POSSIBLE ANTERIOR MYOCARDIAL INFARCTION , AGE UNDETERMINED ABNORMAL ECG No results found for this or any previous visit (from the past 30795 hours). Instructions Given to Patient: Instructions located in the after visit summary. Patient given verbal and written preop instructions and voices comprehension and compliance. SIGNATURE: Hemalatha Tellez PA-C PATIENT NAME: Dl Parsons DATE: 04/19/2025 TIME: 10:48 AM PAGER/CONTACT #: [1] Social History Tobacco Use Smoking status: Never Smokeless tobacco: Never Vaping Use Vaping status: Never Used Substance Use Topics Alcohol use: No Drug use: No documented in this encounter [facility] 04-18-2025 Telephone encounter Note Patient did not show for her PACC appointment. She would like to reschedule for tomorrow, 04/19, 10:30 at [place]. Please reschedule. Thank you. Cassy [facility] Work Phone: 04-18-2025 Miscellaneous Notes Patient did not show for her PACC appointment. She would like to reschedule for tomorrow, 04/19, 10:30 at [place]. Please reschedule. Thank you. Cassy documented in this encounter [facility] 04-09-2025 Telephone encounter Note This patient called and stated that Dr. Milian would give her a call regarding her biopsy and says she did not hear back. She is requesting a call back to go over her results. Her phone number is [phone]. [facility] 04-09-2025 Miscellaneous Notes This patient called and stated that Dr. Milian would give her a call regarding her biopsy and says she did not hear back. She is requesting a call back to go over her results. Her phone number is [phone]. documented in this encounter [facility] 04-01-2025 Instructions Jonnathan Milian MD - 04/01/2025 10:42 AM EDT Today you were seen to discuss a nodule in the isthmus (middle portion) of your thyroid. I performed a scope exam which shows both of your vocal cords are working normally. I also performed an ultrasound which showed the nodule in the middle of the thyroid that was seen on your previous ultrasound and CT scans. You have a biopsy of the nodule later today. I will call you with the results of the biopsy and let you know what the next steps are pending the results of the biopsy. This may include surgery to remove all or part of your thyroid. documented in this encounter [facility] 04-01-2025 History and physical note Images from the original note were not included. Otolaryngology Head and Neck Surgery New Patient Visit Note HISTORY OF PRESENT ILLNESS Identification: Dl Parsons is a 79 year old woman with a thyroid nodule Referring physician: No ref. provider found History: I, Dr. Jonnathan Milian, personally reviewed the notes from: Aydin Dawson MD from 03/16/25 [place] presented to the ED on 03/16/25 for painful neck mass and swelling. ED had concern for thyroid mass. Patient was treated with dexamethasone and and ceftriaxone. Bedside ultrasound did not reveal a discrete mass at the time per ENT residents note. She reported that she has neck pain and swelling earlier this month for which she presented to the ED. She has had antibiotics and steroids with near complete resolution of the swelling. Has history of hypothyroidism, on levothyroxine, noted to have an enlarged thyroid at that time. At least 10 years. Medication dose has been stable. Thinks voice is a little bit more raspy. She coughs more. Builds more phlegm in her throat. Sleeps in a recliner since 2019 when she had COVID and can't lay flat anymore. Denies neck pressure or fullness. Has to be careful when she eats and takes small bites. No recurrent choking or aspiration. No history of pneumonia in the last year. Maintaining weight. History of HTN and T2DM, asthma, uses daily inhaler + rescue, albuterol QID. DM managed with metformin, no insulin. History of hysterectomy, cholecystectomy. No bleeding issues or issues with anesthesia. No blood thinners Biopsy: none, scheduled for IR biopsy today Imaging studies: I, Dr. Jonnathan Milian, personally reviewed these scans on the day of clinic: CT scan of the neck with contrast: 03/15/25 IMPRESSION: Prominent lobulated hypoattenuating mass involving the anterior thyroid and left thyroid lobe with ill-defined margins surrounding infiltration, suspicious for underlying malignancy. Infectious/inflammatory process also not excluded. Consultation with otolaryngology and thyroid ultrasound recommended for further assessment. MRI of head and neck: none. PET/CT scan: none. Ultrasound: 03/27/25 RESULT: Right Lobe: 5.2 cm x 1.6 cm x 2.1 cm; homogeneous echogenicity, expected vascular flow. Left Lobe: 6.2 cm x 2.5 cm x 2.3 cm; homogeneous echogenicity, expected vascular flow. Isthmus: 1.4 cm The most suspicious thyroid nodule(s) (up to four) as below: NODULE 1: Location: Left upper pole Size: 1.2 x 1.3 x 1.5 cm Characteristics: Composition: Solid or almost completely solid, 2 points Echogenicity: Hyperechoic, 1 point Shape: [id number], 0 points Margin: Smooth, 0 points Echogenic foci (add points for all that apply): None, 0 points Internal vascularity: present Interval growth: No prior available for comparison TI-RADS Category: TR3 ACR Recommendation: TI-RADS 3 nodule. Follow-up imaging at 1, 3 and 5 years is recommended. NODULE 2: Location: Left isthmus and extending to the lower pole left thyroid lobe Size: 2.4 x 1.6 x 3.7 cm Characteristics: Composition: Solid or almost completely solid, 2 points Echogenicity: Very hypoechoic, 3 points Shape: [id number], 0 points Margin: Lobulated or irregular, 2 points Echogenic foci (add points for all that apply): Macrocalcifications, 1 point Internal vascularity: absent Interval growth: No prior available for comparison TI-RADS Category: TR5 History of radiation: none. History of chemotherapy: none. PAST MEDICAL HISTORY PAST MEDICAL HISTORY Diagnosis Date Benign neoplasm of colon Chest pain, unspecified Dermatitis herpetiformis Diabetes mellitus (HCC) Esophageal reflux Hemorrhage of gastrointestinal tract, unspecified Hypothyroidism Other specified disease of hair and hair follicles Pure hypercholesterolemia Snoring Unspecified asthma(493.90) Dr. Ricketts had seen in the past Unspecified constipation Unspecified essential hypertension PAST SURGICAL HISTORY PAST SURGICAL HISTORY Procedure Laterality Date APPENDECTOMY COLONOS W/REM POLYP SNARE 11/07/12 small polyps asc and hepatic, diverticulosis - moderate COLONOSCOP W/ OR W/O BRS SPEC 11/1999 Colonoscopy COLONOSCOP W/ OR W/O BRSH SPEC 09/20/2007 Colonoscopy COLONOSCOP W/ OR W/O BRSH SPEC 12/05/2014 Colonoscopy COLONOSCOP W/ OR W/O BRS SPEC 10/23/2018 Colonoscopy D&C, DIAG AND/OR THERAPEUTIC EGD W/O [facility] SPECIMEN W/BX 11/07/12 fundic polyps, minimal gastritis EGD W/O OR W/BRUSH/WASH 10/23/2018 EGD TOTAL ABDOM HYSTERECTOMY WITH BSO MEDICATIONS Current Outpatient Medications Medication Instructions albuterol HFA (PROVENTIL HFA, VENTOLIN HFA) 90 mcg/actuation inhaler 2 puffs, INHALATION, 4 TIMES DAILY amLODIPine (NORVASC) 10 mg, ORAL, DAILY ARNUITY ELLIPTA 100 mcg/actuation inhaler 2 puffs, DAILY atorvastatin (LIPITOR) 10 mg, ORAL, DAILY Blood Glucose Control, Normal (CONTOUR CONTROL SOLUTION, NML) Misc Soln Miscell. (Med.Supl.;Non-Drugs), As intstructed. blood sugar diagnostic (ACCU-CHEK MIMI PLUS TEST STRP) test strip Test blood sugar(s) 1 time daily and as needed for symptoms of high or low sugar. Dx: Type 2 DM - Controlled E11.9 Insulin: No blood sugar diagnostic (BLOOD GLUCOSE TEST) test strip Test blood sugar(s) 1 time daily and as needed for symptoms of high or low sugar . Dx: Type 2 DM - Controlled E11.9 Insulin: No cholecalciferol (Vitamin D3) (VITAMIN D3) 50,000 Units, ORAL, 1 TIME WEEKLY ferrous sulfate 325 mg, ORAL, EVERY 48 HOURS Irbesartan-Hydrochlorothiazide 300-12.5 mg per tablet 1 tablet, ORAL, DAILY, replaces losartan hctz ketoconazole (NIZORAL) 2 % cream 1 application , TOPICAL, DAILY, Continue 1 week more after rash resolves Lancets lancets Test blood sugar(s) 1 x daily and as needed. Dx: E11.9. Insulin: No Lancing Device with Lancets (ACCU-CHEK SOFT DEV LANCETS) Check sugars daily and as needed. E11.9 DM type 2, Insulin: No lansoprazole (PREVACID) 30 mg capsule Take one capsule every other day. levothyroxine (LEVOXYL) 75 mcg, ORAL, DAILY metFORMIN (GLUCOPHAGE) 1,000 mg, ORAL, 2 TIMES DAILY W/MEALS metoprolol tartrate (short acting) (LOPRESSOR) 25 mg, ORAL, 2 TIMES DAILY potassium chloride SR (MICRO-K) 8 mEq cpER 8 mEq, ORAL, 2 TIMES DAILY ALLERGIES ALLERGIES Allergen Reactions Citracal [Calcium C* Intolerance constipation Penicillins Rash Pravastatin Other: See Comments Achy joints, legs felt "like lead" Sulfa (Sulfonamide * Rash Zoloft [Sertraline * Rash SOCIAL HISTORY Never smoker Drinks: none No drug use. Children: none Retired SOCIAL HISTORY[1] FAMILY HISTORY Sister has history of left hemithyroidectomy for concern for cancer, grandfather with thyroid cancer FAMILY HISTORY Problem Relation Age of Onset Diabetes Mother open heart surgery Diabetes Father Several SC's Colon Cancer Father Colon Cancer Paternal Grandmother Cancer Paternal Grandfather throat and stomach Cancer Sister thyroid cancer other (Multiple Myeloma) Sister PHYSICAL EXAM Vital Signs: There were no vitals taken for this visit. General: Well developed, well nourished. NAD, conversing appropriately. Neurological: Alert and oriented to date, time, place, and situation. Cardio/Pulmonary: normal cardiopulmonary effort, no stridor or stertor HEENT: Head/Face: NCAT, no worrisome face lesions Eyes: EOMI, no conjunctival injection or chemosis Ears: External ears normal-appearing. EACs patents, TMs intact with normal landmarks bilaterally Nose: External nose normal-appearing. Oral cavity: moist mucosa, good movement anterior tongue Oropharynx: uvula midline, no posterior oropharyngeal erythema or exudate Neck: supple, flat, trachea midline, no cervical or supraclavicular lymphadenopathy, no palpable thyroid nodules Neuro: EOMI, CN V SILT bilaterally throughout, CN VII intact bilaterally (1/6 H-B score), symmetric palate rise, tongue protrudes midline, shoulder shrug strong Voice: at baseline, no weakness Speech: Smooth, fluent Psychiatric: Appropriate affect and mood Procedure ordered/performed: FLEXIBLE NASOLARYNGOSCOPY [CPT: 41553] After verbal consent was obtained, the nose was sprayed with 4% topical lidocaine/neosynephrine. The nasolaryngoscope was passed through the nasal cavity and the structures of the nasal cavity, pharynx, and larynx were visualized. Nasal Cavity: No intranasal lesions. No polyps or purulence. Middle meatuses patent bilaterally. Normal appearing inferior and middle turbinates. Nasopharynx: Palate movement intact. Eustacian tube orifices patent, no masses or asymmetry. Pharynx: Base of tongue and vallecula clear, no pooling of secretions at base of tongue. Pharyngeal wall motion intact. Supraglottic Larynx: Epiglottis and aryepiglottic folds normal. Hypopharynx: Piriform sinuses clear. Posterior pharyngeal wall and posterior cricoid region without mucosal lesions or masses throughout. Larynx: Arytenoids non-edematous and non-erythematous. Symmetric abduction and adduction of true vocal folds, no lesions. Subglottis visualized w/o lesions. Procedure ordered/performed: Ultrasonography of the neck (CPT Code: 09283): RE: Dl Parsons U#: [id number] Date: 03/31/2025 Indications: Thyroid nodule Comparison Studies: US 03/27/25 A high resolution real-time ultrasound was performed with doppler where necessary. Normal appearing right thyroid lobe Thyroid isthmus with hypoechoic nodule that extends into the left inferior thyroid lobe No abnormal appearing central neck lymphadenopathy ASSESSMENT Dl Parsons is a 79 year old female with history of T2DM (on metformin), asthma, hypothyroidism who presents with a thyroid isthmus nodule. US and CT characteristics are concerning for possible thyroid malignancy. She is scheduled for IR guided biopsy today. We discussed that pending the results of the biopsy she may need thyroidectomy. Given the location of the mass may need left thyroidectomy and isthmusectomy versus total thyroidectomy. We discussed the risks of thyroidectomy including recurrent laryngeal nerve injury and parathyroid gland injury. I, Dr. Jonnathan Milian , personally performed, reviewed, and interpreted the above reported ultrasound on the day of clinic. I discussed the diagnosis, above listed imaging scans/pathology report/endoscopy, and the management plan listed below with the patient. PLAN Follow up IR guided biopsy results If concern for malignancy will discuss thyroidectomy Jonnathan Milian MD Fellow Head and Neck Oncologic and Reconstructive Surgery [facility] [1] Social History Tobacco Use Smoking status: Never Smokeless tobacco: Never Substance Use Topics Alcohol use: No Drug use: No [facility] 04-01-2025 History and physical note Images from the original note were not included. Otolaryngology Head and Neck Surgery New Patient Visit Note HISTORY OF PRESENT ILLNESS Identification: Dl Parsons is a 79 year old woman with a thyroid nodule Referring physician: No ref. provider found History: Dr. Jonnathan Velazquez, personally reviewed the notes from: Aydin Dawson MD from 03/16/25 [place] presented to the ED on 03/16/25 for painful neck mass and swelling. ED had concern for thyroid mass. Patient was treated with dexamethasone and and ceftriaxone. Bedside ultrasound did not reveal a discrete mass at the time per ENT residents note. She reported that she has neck pain and swelling earlier this month for which she presented to the ED. She has had antibiotics and steroids with near complete resolution of the swelling. Has history of hypothyroidism, on levothyroxine, noted to have an enlarged thyroid at that time. At least 10 years. Medication dose has been stable. Thinks voice is a little bit more raspy. She coughs more. Builds more phlegm in her throat. Sleeps in a recliner since 2019 when she had COVID and can't lay flat anymore. Denies neck pressure or fullness. Has to be careful when she eats and takes small bites. No recurrent choking or aspiration. No history of pneumonia in the last year. Maintaining weight. History of HTN and T2DM, asthma, uses daily inhaler + rescue, albuterol QID. DM managed with metformin, no insulin. History of hysterectomy, cholecystectomy. No bleeding issues or issues with anesthesia. No blood thinners Biopsy: none, scheduled for IR biopsy today Imaging studies: Dr. Jonnathan Velazquez, personally reviewed these scans on the day of clinic: CT scan of the neck with contrast: 03/15/25 IMPRESSION: Prominent lobulated hypoattenuating mass involving the anterior thyroid and left thyroid lobe with ill-defined margins surrounding infiltration, suspicious for underlying malignancy. Infectious/inflammatory process also not excluded. Consultation with otolaryngology and thyroid ultrasound recommended for further assessment. MRI of head and neck: none. PET/CT scan: none. Ultrasound: 03/27/25 RESULT: Right Lobe: 5.2 cm x 1.6 cm x 2.1 cm; homogeneous echogenicity, expected vascular flow. Left Lobe: 6.2 cm x 2.5 cm x 2.3 cm; homogeneous echogenicity, expected vascular flow. Isthmus: 1.4 cm The most suspicious thyroid nodule(s) (up to four) as below: NODULE 1: Location: Left upper pole Size: 1.2 x 1.3 x 1.5 cm Characteristics: Composition: Solid or almost completely solid, 2 points Echogenicity: Hyperechoic, 1 point Shape: Gsdup-[id number], 0 points Margin: Smooth, 0 points Echogenic foci (add points for all that apply): None, 0 points Internal vascularity: present Interval growth: No prior available for comparison TI-RADS Category: TR3 ACR Recommendation: TI-RADS 3 nodule. Follow-up imaging at 1, 3 and 5 years is recommended. NODULE 2: Location: Left isthmus and extending to the lower pole left thyroid lobe Size: 2.4 x 1.6 x 3.7 cm Characteristics: Composition: Solid or almost completely solid, 2 points Echogenicity: Very hypoechoic, 3 points Shape: [id number]-[id number]-dlcl, 0 points Margin: Lobulated or irregular, 2 points Echogenic foci (add points for all that apply): Macrocalcifications, 1 point Internal vascularity: absent Interval growth: No prior available for comparison TI-RADS Category: TR5 History of radiation: none. History of chemotherapy: none. PAST MEDICAL HISTORY PAST MEDICAL HISTORY Diagnosis Date Benign neoplasm of colon Chest pain, unspecified Dermatitis herpetiformis Diabetes mellitus (HCC) Esophageal reflux Hemorrhage of gastrointestinal tract, unspecified Hypothyroidism Other specified disease of hair and hair follicles Pure hypercholesterolemia Snoring Unspecified asthma(493.90) Dr. Ricketts had seen in the past Unspecified constipation Unspecified essential hypertension PAST SURGICAL HISTORY PAST SURGICAL HISTORY Procedure Laterality Date APPENDECTOMY COLONOS W/REM POLYP SNARE 11/07/12 small polyps asc and hepatic, diverticulosis - moderate COLONOSCOP W/ OR W/O [facility] SPEC 11/1999 Colonoscopy COLONOSCOP W/ OR W/O [facility] SPEC 09/20/2007 Colonoscopy COLONOSCOP W/ OR W/O [facility] SPEC 12/05/2014 Colonoscopy COLONOSCOP W/ OR W/O [facility] SPEC 10/23/2018 Colonoscopy D&C, DIAG AND/OR THERAPEUTIC EGD W/O [facility] SPECIMEN W/BX 11/07/12 fundic polyps, minimal gastritis EGD W/O OR W/BRUSH/WASH 10/23/2018 EGD TOTAL ABDOM HYSTERECTOMY WITH BSO MEDICATIONS Current Outpatient Medications Medication Instructions albuterol HFA (PROVENTIL HFA, VENTOLIN HFA) 90 mcg/actuation inhaler 2 puffs, INHALATION, 4 TIMES DAILY amLODIPine (NORVASC) 10 mg, ORAL, DAILY ARNUITY ELLIPTA 100 mcg/actuation inhaler 2 puffs, DAILY atorvastatin (LIPITOR) 10 mg, ORAL, DAILY Blood Glucose Control, Normal (CONTOUR CONTROL SOLUTION, NML) Misc Soln Miscell. (Med.Supl.;Non-Drugs), As intstructed. blood sugar diagnostic (ACCU-CHEK MIMI PLUS TEST STRP) test strip Test blood sugar(s) 1 time daily and as needed for symptoms of high or low sugar. Dx: Type 2 DM - Controlled E11.9 Insulin: No blood sugar diagnostic (BLOOD GLUCOSE TEST) test strip Test blood sugar(s) 1 time daily and as needed for symptoms of high or low sugar . Dx: Type 2 DM - Controlled E11.9 Insulin: No cholecalciferol (Vitamin D3) (VITAMIN D3) 50,000 Units, ORAL, 1 TIME WEEKLY ferrous sulfate 325 mg, ORAL, EVERY 48 HOURS Irbesartan-Hydrochlorothiazide 300-12.5 mg per tablet 1 tablet, ORAL, DAILY, replaces losartan hctz ketoconazole (NIZORAL) 2 % cream 1 application , TOPICAL, DAILY, Continue 1 week more after rash resolves Lancets lancets Test blood sugar(s) 1 x daily and as needed. Dx: E11.9. Insulin: No Lancing Device with Lancets (ACCU-CHEK SOFT DEV LANCETS) Check sugars daily and as needed. E11.9 DM type 2, Insulin: No lansoprazole (PREVACID) 30 mg capsule Take one capsule every other day. levothyroxine (LEVOXYL) 75 mcg, ORAL, DAILY metFORMIN (GLUCOPHAGE) 1,000 mg, ORAL, 2 TIMES DAILY W/MEALS metoprolol tartrate (short acting) (LOPRESSOR) 25 mg, ORAL, 2 TIMES DAILY potassium chloride SR (MICRO-K) 8 mEq cpER 8 mEq, ORAL, 2 TIMES DAILY ALLERGIES ALLERGIES Allergen Reactions Citracal [Calcium C* Intolerance constipation Penicillins Rash Pravastatin Other: See Comments Achy joints, legs felt "like lead" Sulfa (Sulfonamide * Rash Zoloft [Sertraline * Rash SOCIAL HISTORY Never smoker Drinks: none No drug use. Children: none Retired SOCIAL HISTORY[1] FAMILY HISTORY Sister has history of left hemithyroidectomy for concern for cancer, grandfather with thyroid cancer FAMILY HISTORY Problem Relation Age of Onset Diabetes Mother open heart surgery Diabetes Father Several SC's Colon Cancer Father Colon Cancer Paternal Grandmother Cancer Paternal Grandfather throat and stomach Cancer Sister thyroid cancer other (Multiple Myeloma) Sister PHYSICAL EXAM Vital Signs: There were no vitals taken for this visit. General: Well developed, well nourished. NAD, conversing appropriately. Neurological: Alert and oriented to date, time, place, and situation. Cardio/Pulmonary: normal cardiopulmonary effort, no stridor or stertor HEENT: Head/Face: NCAT, no worrisome face lesions Eyes: EOMI, no conjunctival injection or chemosis Ears: External ears normal-appearing. EACs patents, TMs intact with normal landmarks bilaterally Nose: External nose normal-appearing. Oral cavity: moist mucosa, good movement anterior tongue Oropharynx: uvula midline, no posterior oropharyngeal erythema or exudate Neck: supple, flat, trachea midline, no cervical or supraclavicular lymphadenopathy, no palpable thyroid nodules Neuro: EOMI, CN V SILT bilaterally throughout, CN VII intact bilaterally (1/6 H-B score), symmetric palate rise, tongue protrudes midline, shoulder shrug strong Voice: at baseline, no weakness Speech: Smooth, fluent Psychiatric: Appropriate affect and mood Procedure ordered/performed: FLEXIBLE NASOLARYNGOSCOPY [CPT: 17808] After verbal consent was obtained, the nose was sprayed with 4% topical lidocaine/neosynephrine. The nasolaryngoscope was passed through the nasal cavity and the structures of the nasal cavity, pharynx, and larynx were visualized. Nasal Cavity: No intranasal lesions. No polyps or purulence. Middle meatuses patent bilaterally. Normal appearing inferior and middle turbinates. Nasopharynx: Palate movement intact. Eustacian tube orifices patent, no masses or asymmetry. Pharynx: Base of tongue and vallecula clear, no pooling of secretions at base of tongue. Pharyngeal wall motion intact. Supraglottic Larynx: Epiglottis and aryepiglottic folds normal. Hypopharynx: Piriform sinuses clear. Posterior pharyngeal wall and posterior cricoid region without mucosal lesions or masses throughout. Larynx: Arytenoids non-edematous and non-erythematous. Symmetric abduction and adduction of true vocal folds, no lesions. Subglottis visualized w/o lesions. Procedure ordered/performed: Ultrasonography of the neck (CPT Code: 88193): RE: Dl Parsons U#: [id number] Date: 03/31/2025 Indications: Thyroid nodule Comparison Studies: US 03/27/25 A high resolution real-time ultrasound was performed with doppler where necessary. Normal appearing right thyroid lobe Thyroid isthmus with hypoechoic nodule that extends into the left inferior thyroid lobe No abnormal appearing central neck lymphadenopathy ASSESSMENT Dl Parsons is a 79 year old female with history of T2DM (on metformin), asthma, hypothyroidism who presents with a thyroid isthmus nodule. US and CT characteristics are concerning for possible thyroid malignancy. She is scheduled for IR guided biopsy today. We discussed that pending the results of the biopsy she may need thyroidectomy. Given the location of the mass may need left thyroidectomy and isthmusectomy versus total thyroidectomy. We discussed the risks of thyroidectomy including recurrent laryngeal nerve injury and parathyroid gland injury. I, Dr. Jonnathan Milian , personally performed, reviewed, and interpreted the above reported ultrasound on the day of clinic. I discussed the diagnosis, above listed imaging scans/pathology report/endoscopy, and the management plan listed below with the patient. PLAN Follow up IR guided biopsy results If concern for malignancy will discuss thyroidectomy Jonnathan Milian MD Fellow Head and Neck Oncologic and Reconstructive Surgery [facility] [1] Social History Tobacco Use Smoking status: Never Smokeless tobacco: Never Substance Use Topics Alcohol use: No Drug use: No documented in this encounter [facility] 03-27-2025 Progress note [facility] 03-27-2025 History of Present illness Narrative Radiology Service Progress Note PATIENT NAME: Dl Parsons DATE OF SERVICE: March 27, 2025 TIME: 7:44 AM PATIENT IDENTITY VERIFICATION COMPLETED USING TWO (2) IDENTIFIERS: Name and Date of confirmed by patient verbally. FALL SCREENING: Has the patient had 2 falls in the last year or 1 fall with injury or currently using an Ambulatory Assistive Device (Walker, Cane, Wheelchair, Crutches, etc.)? Yes, Patient High Risk for Falls What interventions were put in place to prevent falls during this visit? Offered Assistance with Transfers/Clothing, Instructed Patient to Remain Seated (Not on Exam Table) Until Exam, and Increased Observations by Caregivers PATIENT GENDER DATA: Assigned female at . status: : No status: NO. PATIENT RELEVANT IMPLANT DATA REVIEWED: Not Applicable PATIENT PRESENTS WITH AN IMPLANTABLE OR ATTACHED PODIATRIC SURGEON: No RADIOLOGY DEPARTMENT: Ultrasound PERIPHERAL IV DATA: Not applicable SIGNED BY: Lyndsey Vivas RDMS March 27, 2025 7:44 AM documented in this encounter [facility] 03-27-2025 Note HNO ID: [id number] Author: LYNDSEY VIVAS RDMS Service: ? Author Type: Re Dye Hand Type: Progress Notes Filed: 03/27/2025 07:45 Note Text: Radiology Service Progress Note PATIENT NAME: Dl Parsons DATE OF SERVICE: March 27, 2025 TIME: 7:44 AM PATIENT IDENTITY VERIFICATION COMPLETED USING TWO (2) IDENTIFIERS: Name and Date of confirmed by patient verbally. FALL SCREENING: Has the patient had 2 falls in the last year or 1 fall with injury or currently using an Ambulatory Assistive Device (Walker, Cane, Wheelchair, Crutches, etc.)? Yes, Patient High Risk for Falls What interventions were put in place to prevent falls during this visit? Offered Assistance with Transfers/Clothing, Instructed Patient to Remain Seated (Not on Exam Table) Until Exam, and Increased Observations by Caregivers PATIENT GENDER DATA: Assigned female at . status: : No status: NO. PATIENT RELEVANT IMPLANT DATA REVIEWED: Not Applicable PATIENT PRESENTS WITH AN IMPLANTABLE OR ATTACHED PODIATRIC SURGEON: No RADIOLOGY DEPARTMENT: Ultrasound PERIPHERAL IV DATA: Not applicable SIGNED BY: Lyndsey Vivas RDMS March 27, 2025 7:44 AM [facility] 03-27-2025 Progress note Note Date/Time March 27, 2025 12:29pm [facility] [address] [place] [address] OFFICE VISIT Date of Service: 03/27/25 MR#: [id number] Acct: [id number] Name: DL PARSONS Rep #: [id number] : 1945 Provider: Dr. Love Condon MD Age/Sex: 79/F [place] [facility] Status: Signed Intake Vital Signs 02/18/25 21:15 03/15/25 16:16 03/27/25 11:24 Height 4 ft 11 in 4 ft 11 in 4 ft 11 in Weight: 188 lb BMI 38.0 BP 133/77 H Blood Pressure Location Lt brachial Position Sitting Respiration 16 Pulse 70 Pulse Source Monitor Temp 98.2 F Temp Source Temporal Pulse Oximetry (%) 92 Oxygen Delivery Method room air Intake Visit Reasons: UTI FU Chief Complaint: UTI FU Experimental Machinist Required: No Accompanied by: Is patient in pain?: No Allergies Penicillins Allergy (Verified 03/27/25 11:05) Rash Sulfa (Sulfonamide Antibiotics) Allergy (Verified 03/27/25 11:05) Rash calcium Adverse Reaction (Verified 03/27/25 11:05) Constipation sertraline Adverse Reaction (Verified 03/27/25 11:05) Constipation Medications ?Medication ?Instructions ?Recorded ?Confirmed ?Type lancets (Accu-Chek Multiclix #100 ea 07/02/20 03/27/25 History Lancet) geriatric multivitamin-min 1 tab PO .QOD 01/28/2203/15 History handicap placard #1 ea 07/06/23 03/27/25 Rx blood-glucose meter #1 ea 07/11/23 03/27/25 Rx lancets (Accu-Chek Softclix #100 ea 07/11/23 03/27/25 Rx Lancets) blood sugar diagnostic (Accu-Chek #100 ea 10/31/23 Rx Guide test strips) accu-check avivia control solutions #1 BOTTLE 07/23/24 03/27/25 Rx amlodipine 10 mg tablet 10 mg PO DAILY BLOOD PRESSUR E #90 07/23/24 03/27/25 Rx tabs atorvastatin 10 mg tablet 10 mg PO QHS CHOLESTEROL #90 tabs 07/23/24 03/27/25 Rx ergocalciferol (vitamin D2) 1,250 1,250 mcg PO QWEEK # 14 caps 07/23/24 03/27/25 Rx mcg (50,000 unit) capsule irbesartan 300 1 tab PO DAILY BP #90 tabs 1 09/23/23 03/27/25 Rx mg-hydrochlorothiazide 12.5 mg tablet (Avalide) levothyroxine 75 mcg tablet 75 mcg PO DAILY THYROID #9 0 tabs 07/23/24 03/27/25 Rx metoprolol tartrate 25 mg tablet 25 mg PO BID BLOOD SD ESSURE #180 07/23/24 03/27/25 Rx tabs metformin 500 mg tablet See Rx Instructions PO BID 0 01/31/25 03/27/25 Rx DIABETES #270 tabs omeprazole 20 mg capsule,delayed 20 mg PO DAILY 03/27/25 History release lansoprazole 30 mg capsule,delayed 30 mg PO DAILY 09/0803/27/25 History release albuterol sulfate 90 mcg/actuation 2 inh inhalation 4X /DAY 03/27/25 History aerosol inhaler bronchospasm cefdinir 300 mg capsule 300 mg PO 03/27/25 03/27/25 History ferrous sulfate 325 mg (65 mg 325 mg PO Q OTHER DAY 03/27/25 History iron) tablet (FeroSul) fluconazole 100 mg tablet 100 mg PO QDAY 3 days #3 tab s 03/27/25 03/27/25 Rx fluticasone furoate 100 2 inh inhalation Q24H History mcg/actuation blister powder for inhalation Have you fallen in the past year?: No [facility] Medical History (Updated 03/27/25 @ 12:[address] Kaitlyn Condon MD) Thyroid mass of unclear etiology Family history of dementia Memory deficit Cancer On home oxygen therapy Hypertension Abdominal discomfort Occult blood positive stool Back pain Black stool Acute URI Urinary tract infection Need for influenza vaccination Syncope Wears glasses Post-menopausal Thyroid disease Diabetes Walker as ambulation aid Ambulates with cane Injury of head and neck Gastric reflux Non-smoker History of edema History of echocardiogram History of stress test Bronchitis Shortness of breath on exertion Obesity History of COVID-19 Incontinence Difficulty balancing when standing Knee pain Diarrhea Hemorrhoids COVID-19 Pancreatitis Asthma Arthritis Seasonal allergies Osteopenia Essential hypertension Ascending cholangitis Gallstone pancreatitis Surgical History Hx laparoscopic cholecystectomy History of ERCP History of colonoscopy Cataracts, bilateral H/O: hysterectomy Cholecystectomy planned Family History Mother Diabetes Heart disease Arthritis Hypertension Hyperlipemia Father Colon cancer Heart disease Hypertension Hyperlipemia Cancer prostate Myocardial infarction Social History household members: spouse housing: house Smoking Status: Never smoker alcohol intake: never substance use type: does not use what type of physical activity do you participate in: other details: yard work additional social history: pt denies vaping, denies marijuana use, denies edibles, denies aspirin, denies ibuprofen use. HPI HPI Chief Complaint: UTI FU Details: DL PARSONS, is a 79 F who presents to the office today for ER and hospital follow-up. 79-year-old female who back in early February presented to urgent care on the weekend with symptoms consistent with UTI. Her findings werenot overly impressive at that point but she was placed on Macrobid. It did not work and we received a phone call that she was having ongoing symptoms after being on it for a couple of days. We switched to Cipro, symptoms resolved and she was doing okay until later in February, early March when she started having symptoms again. She started on Macrobid and presented ultimately to the ER because of those ongoing symptoms. They checked her urine and did not find any significant findings and recommended she stop taking it. Then several days later, and unrelated sense, she started developing swelling around her neck, somewhat difficulty in breathing. She went to the ER. At the earlier ER visit she was felt to possibly have viral bronchitis. In any event when she went the second time, she had notable swelling. CT scan ensued that showed a diffusely enlarged thyroid, nodular appearance, concerning for malignancy versus perhaps secondary or superinfection of a pre-existing nodule or lesion in the thyroid. Because of the degree of findings, and symptoms including tenderness of the thyroid, swelling, dyspnea, she was transferred from the ER at [place] up to [facility]. She spent several days there. During that time she received antibiotics for presumed superinfection as well as steroids. The swelling improved significantly to the point of discharge. She had an ultrasound of the thyroid today at [facility] and [place] for which I do not have the results. The biopsy has been scheduled for next Tuesday. From that standpoint above, she is doing much better at this point. No neck tenderness or discomfort is noted today. The swelling is again significantly improved. Still notes a little subtle sensation of fullness in the neck but sheis doing better. She has had recurrence of presumed UTI like symptoms. She wonders about yeast infection. She does have chronic long-term urinary leakage. She is status post remote hysterectomy. We have discussed in the past about seeing Dr. Driscoll, and we discussed that once again today and at this point theintent is likely to refer her once we address the thyroid situation. Review of systems per chart. Physical exam. Vital signs on chart. Exam today is brief and limited to the neck. No cervical supraclavicular lymph nodes are enlarged or tender. There isno tenderness of the thyroid itself today. There is perhaps mild fullness to the thyroid on exam today but I do not palpate a distinct nodule. ROS Const Constitutional: No body ache, chills, excessive sweating, fatigue, fever(s), frequent falls, headache(s), snoring, weakness or change in appetite Eyes Eyes: No blurry vision, change in vision, eye pain or Light sensitivity ENT ENT: Positive for throat swelling; No abnormal hearing, ear or mastoid pain, tinnitus, nasal congestion, headache(s), neck pain or sore throat Resp Respiratory: No cough, shortness of breath, snoring or wheezing Cardio Cardiology: No chest pain at rest, chest pain with exertion, excessive sweating,dyspnea on exertion, lightheadedness, orthopnea or palpitations Gastro GI: No abdominal pain, change in bowel habits, constipation, cramping, diarrhea,nausea/dyspepsia or vomiting Genitourinary-Female: Positive for Vaginal Itching and other (Vaginal burning ); No burning urination, painful urination, urinary incontinence or urinary frequency Musc Musculoskeletal: No abnormal gait, joint pain, back pain, limited range of motion, muscle weakness, neck pain or numbness Skin Skin: No dry skin, redness, lesions, itchy eyes, rash or wounds Neuro Neurology: No abnormal gait, abnormal hearing, weakness, frequent falls, headache(s), memory loss or numbness Psych Psychiatric: No anxiety, No change in appetite, No depression, No memory loss and No Thoughts of harming yourself/Others Endo Endocrine: No cold intolerance, excessive sweating, fatigue, flushing, heat intolerance, increased thirst/drinking or increased hunger Aller/Imm Allergy/Immunologic: Positive for throat swelling; No itchy eyes, seasonal allergy symptoms, hives or wheezing Armani/Lymp Hematologic/Lymphatic: No easy bleeding or easy bruising Coding Level of Care Code Off vis,est,level 3 Diagnoses Dysuria R30.0 Hypothyroidism E03.9 Thyroid mass of unclear etiology E07.89 Time Spent (min) 30 Assessment and Plan Assessment and Plan (1) Dysuria: Status: Acute (2) Hypothyroidism: Status: Chronic (3) Thyroid mass of unclear etiology: Status: Acute Medications: New fluconazole 100 mg PO QDAY 3 tabs 0RF 3 days Plan Details Additional Comments: Patient presented today as above, follow-up. Complicated recent course. We will treat for presumed yeast infection with 3-day course of fluconazole. If this settles things down we will continue monitoring as we get through the thyroid biopsy next Tuesday. If it does not improve, we will go ahead and get referral made to see urologist for further evaluation. She is in agreement withplan. I have asked her to make sure [facility] sends us all of the notes. We will try and obtain the thyroid results from today thyroid ultrasound. I would not change any of her medical regimen otherwise today. 30-minute visit. Clinical Quality Measures Falls Risk Screening/Assistive Devices Have you fallen in the past year?: No 03/27/25 1229 <Electronically signed by Kaitlyn hoffman MD> Date _ Kaitlyn Condon MD [facility] Signature: Date (if applicable) CC: ~ [facility] Work Phone: [phone]) 604-156908-04-2025 NoteHNO ID: [id number] Author: PHILIPPE ALBARRAN RN Service: Care Management Author Type: Registered Nurse Type: Care Mgt Progress Note Filed: 03/18/2025 13:26 Note Text: CARE MANAGEMENT DISCHARGE NOTE SERVICE DATE: March 18, 2025 SERVICE TIME: 1:26 PM Admission Date: 03/16/2025 LOS: 2 days Discharge Arrangement Discharge Arrangement: Home with Self Care Caregiver Assessment Caregiver is ready, willing and able to meet the patient's needs as recommended by the inter-professional team: No Caregiver needed Transportation Arrangements Transportation Arrangements: Car Destination: Home Handoff Communication: Handoff to: Primary Care Physician Primary Care Physician Name/Phone: Kaitlyn Condon MD [phone] Patient discharging home with self care. Patient is on 2L O2 nocturnal only at baseline through [facility]. Patient currently remains within baseline needs. Family to transport. Ready for discharge from . SIGNATURE: Philippe Albarran RN PATIENT NAME: Dl Parsons DATE: March 18, 2025 TIME: 1:26 [facility]08-04-2025 NoteHNO ID: [id number] Author: PHILIPPE ALBARRAN RN Service: Care Management Author Type: Registered Nurse Type: Care Mgt Initial Assessment Filed: 03/18/2025 12:12 Note Text: CARE MANAGEMENT: ASSESSMENT AND DISCHARGE PLAN SERVICE DATE: March 18, 2025 SERVICE TIME: 12:10 PM PCP: Kaitlyn Condon MD Primary Contact: Extended Emergency Contact Information Primary Emergency Contact: Iain Parsons Address: [address] [place] [address] [place] [address] Mobile Relation: Spouse Admission Status: Inpatient Insurance Provider: [employer] MED[employer]ARE PPO Discharge Planning requested by: Per Department Practice Potential Transition Plans To Be Determined, Home Advance Directives Current Advance Directive: 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 Assist with AD Completion: Yes Action: Education Provided Current Living Arrangements and Support Lives with: Spouse/significant other Type of Residence: Private Residence (House) Does the patient have to climb stairs at home?: Yes, stairs outside the home, stairs within the home Support: Spouse/significant other, Family members How do you manage to accomplish the following: Independent: Ambulation, Bathe/Shower, Meals/Meal Prep, Going to the bathroom, Dress, Medication Management, Transportation to appointments/community Current Services/Equipment Current Post-Acute Service(s): DME, Oxygen Current O2 Usage (device, rate, continuous/pulse and hrs per day): 2 LPM, nocturnal only Current DME Type: Walker, Cane, Shower seat Discharge Planning Patient Goal(s): General wellness Serafina of Choice Explained: Serafina of Choice Given: No Reason Not Given: No placements necessary Are you interested in bedside delivery of your medications? Yes Discharge Planning Participant(s): Patient Patient/Family Comments: Caregiver Assessment: Caregiver is ready, willing and able to meet the patient's needs as recommended by the inter-professional team: No Caregiver needed Transport at Discharge: Transportation Arrangements: Car Destination: Home Needs Prior to Discharge: Needs Prior to Discharge: To Be Determined Post-Acute Discharge Plan: Per the EMR, Dl Parsons is a 79 y/o F with a past medical history of HTN, T2DM, hypothyroidism, GERD, asthma, MYLES (not on CPAP), hemorrhoids who is transferred to [facility] [place] evaluation of neck mass. Patient from home with spouse. Independent with ADL's with no services [employer]. Patient has a cane, walker, and shower chair. 6 clicks 21, currently on RA. Patient is on 2L O2 nocturnal only at baseline through [employer]. Patient currently remains within baseline needs. If O2 needs change will need new desat and script. Family to transport on discharge. CM will continue to follow. SIGNATURE: Philippe Albarran RN PATIENT NAME: Dl Parsons DATE: March 18, 2025 TIME: 12:10 [facility]08-02-2025 Discharge summary Author Seamus Zhou [facility] Note Date/Time March 16, 2025 5:3 1am [facility] Medical Records Department [address] [place] [address] Emergency Department Summary 03/15/25 MR#: [id number] Acct: [id number] Name: DL PARSONS Rep #:[id number] : 1945 79 From: Seamus Zhou DO PCP: Dr. Kaitlyn Condon MD Status:REG ER Location: ED ADDENDUM by Dr. Harpreet Noriega DO on 03/16/25 at 0531 Patient signed out to me awaiting bed availability at [facility]. She request to go here. [facility] [employer] [facility] discussed with transfer line, discussed bed likely available collar band creaser after 7 AM. Will keep her in the ED awaiting bedfor transfer. She is treated with antibiotics for concerns for neoplasm with infection. She was given clindamycin little over 9 hours ago. Will schedule clindamycin every 8 hours. Clinically has been stable. 03/16/25 0531<Electronically signed by Harpreet Beltran> Cosigner Signature (if applicable): cc: Dr. Kaitlyn Condon MD ~* Signed HPI History of Present Illness Chief Complaint: Complaint Detail of Chief Complaint: Dysuria Informant: patient Narrative Narrative: Patient presents to the emergency department with concern for urinary tract infection. Patient states that she was on nitrofurantoin a month ago and then 2- 1/2 days ago was started on Cipro which she started having dysuria again. Shehas had 3 UTIs this year. Since taking the Cipro she describes some fullness inher throat. She has had a cough. She denies fever. She states that she cannotstop shaking since taking the Cipro. She denies any pain in her back. She has had nausea but no vomiting. Patient also has been having some diarrhea since yesterday. [facility] Medical History (Updated 03/15/25 @ 20:[address] Seamus Zhou DO) Family history of dementia Memory deficit Cancer On home oxygen therapy Hypertension Abdominal discomfort Occult blood positive stool Back pain Black stool Acute URI Urinary tract infection Need for influenza vaccination Syncope Wears glasses Post-menopausal Thyroid disease Diabetes Walker as ambulation aid Ambulates with cane Injury of head and neck Gastric reflux Non-smoker History of edema History of echocardiogram History of stress test Bronchitis Shortness of breath on exertion Obesity History of COVID-19 Incontinence Difficulty balancing when standing Knee pain Diarrhea Hemorrhoids COVID-19 Pancreatitis Asthma Arthritis Seasonal allergies Osteopenia Essential hypertension Ascending cholangitis Gallstone pancreatitis Home Medications ?Medication ?Instructions ?Recorded ?Last Taken ?Type lancets (Accu-Chek Multiclix #100 ea 07/02/20 Unknown History Lancet) geriatric multivitamin-min 1 tab PO .QOD 01/28/2209/16 History handicap placard #1 ea 07/06/23 Unknown Rx blood-glucose meter #1 ea 07/11/23 Unknown Rx lancets (Accu-Chek Softclix #100 ea 07/11/23 Unknown R x Lancets) blood sugar diagnostic (Accu-Chek #100 ea 10/31/23 Unk nown Rx Guide test strips) accu-check avivia control solutions #1 BOTTLE 07/23/24 Unknown Rx amlodipine 10 mg tablet 10 mg PO DAILY BLOOD PRESSUR E #90 07/23/24 10/09/24 Rx tabs atorvastatin 10 mg tablet 10 mg PO QHS CHOLESTEROL #90 tabs 07/23/24 10/08/24 Rx ergocalciferol (vitamin D2) 1,250 1,250 mcg PO QWEEK # 14 caps 07/23/24 10/08/24 Rx mcg (50,000 unit) capsule irbesartan 300 1 tab PO DAILY BP #90 tabs 1 09/23/23 10/08/24 Rx mg-hydrochlorothiazide 12.5 mg tablet (Avalide) levothyroxine 75 mcg tablet 75 mcg PO DAILY THYROID #9 0 tabs 07/23/24 10/09/24 Rx metoprolol tartrate 25 mg tablet 25 mg PO BID BLOOD SD ESSURE #180 07/23/24 10/09/24 Rx tabs albuterol sulfate 90 mcg/actuation 2 inh inhalation Q6 H PRN 10/25/24 Unknown Rx aerosol inhaler bronchospasm #8.5 grams fluticasone furoate 100 1 inh inhalation Q24H #90 ea 10/29/24 Unknown Rx mcg/actuation blister powder for inhalation metformin 500 mg tablet See Rx Instructions PO BID 0 01/31/25 Unknown Rx DIABETES #270 tabs omeprazole 20 mg capsule,delayed 20 mg PO DAILY Unknown History release ciprofloxacin HCl 500 mg tablet 500 mg PO BID #14 tabs 03/14/25 Unknown Rx lansoprazole 30 mg capsule,delayed 30 mg PO DAILY 09/08 Unknown History release Allergy/AdvReac Type Severity Reaction Status Date / Time Penicillins Allergy Rash Verified 03/15/25 16:21 Sulfa (Sulfonamide Allergy Rash Verified 03/15/25 16:21 Antibiotics) calcium AdvReac Constipatio Verified 03/15/25 16:21 n sertraline AdvReac Constipatio Verified 03/15/25 16:21 n Family History Mother Diabetes Heart disease Arthritis Hypertension Hyperlipemia Father Colon cancer Heart disease Hypertension Hyperlipemia Cancer prostate Myocardial infarction Surgical History Hx laparoscopic cholecystectomy History of ERCP History of colonoscopy Cataracts, bilateral H/O: hysterectomy Cholecystectomy planned Social History (Updated 03/15/25 @ 17:05 by Naila Taveras) household members: spouse housing: house Smoking Status: Never smoker alcohol intake: never substance use type: does not use what type of physical activity do you participate in: other details: yard work additional social history: pt denies vaping, denies marijuana use, denies edibles, denies aspirin, denies ibuprofen use. ROS ROS ED Review of Systems ROS Unobtainable: other Constitutional Constitutional ED: Reports lethargy; Denies chills, fever(s), sweats or weight loss Eyes Eyes: Denies blurry vision, change in vision or diplopia ENT ENT ED: Reports other Details: Anterior throat pain ; Denies rhinorrhea or sore throat Cardiovascular Cardiovascular: Denies chest pain, orthopnea or racing heartbeat Respiratory/Chest Respiratory/Chest: Reports cough and dyspnea; Denies dyspnea on exertion, orthopnea or sputum Gastrointestinal Gastrointestinal: Reports diarrhea, nausea and vomiting; Denies abdominal pain Genitourinary Genitourinary ED: Reports dysuria; Denies hematuria or urinary frequency Musculoskeletal Musculoskeletal: Denies arthralgias, back pain, myalgias or neck pain Integumentary Denies abscess, Abrasions or rash Neurologic Neurologic: Denies headache(s) or weakness Psychiatric Psychiatric: Denies anxiety, depression or suicidal thoughts Endocrine Endocrinology: Denies polydipsia, polyphagia or polyuria Hematologic/Lymphatic Hematologic/Lymphatic: Denies easy bleeding, easy bruising or lymphadenopathy Allergic/Immunologic Allergic/Immunologic ED: Denies mouth swelling, tongue swelling or urticaria EXAM Physical Exam Const Vital Signs: 03/15/25 16:16 03/15/25 17:04 03/15/25 18:00 Temperature 99.3 F H 98.3 F 100 F H Temperature Source Oral Oral Oral Pulse Rate 101 H 80 94 Respiratory Rate 18 18 18 Blood Pressure 142/114 H 120/78 152/82 H Blood Pressure Mean 123 92 105 Pulse Ox 94 98 96 Oxygen Delivery Method Room Air Room Air Room Air 03/15/25 19:00 03/15/25 20:00 03/15/25 21:00 Temperature 99.7 F H 99.8 F H 100.3 F H Temperature Source Oral Oral Oral Pulse Rate 102 H 106 H 110 H Respiratory Rate 16 18 20 H Blood Pressure 141/77 H 156/101 H 119/92 H Blood Pressure Mean 98 119 101 Pulse Ox 95 93 94 Oxygen Delivery Method Room Air Room Air Room Air 03/15/25 22:00 03/15/25 23:00 Temperature 99.8 F H 99.5 F H Temperature Source Oral Oral Pulse Rate 106 H 107 H Respiratory Rate 18 18 Blood Pressure 141/67 H 118/91 H Blood Pressure Mean 91 100 Pulse Ox 97 94 Oxygen Delivery Method Room Air Room Air Positive well nourished and well developed General Appearance ED: well developed and NAD HEENT Reports TM's clear and moist mucous membranes HEENT Narrative: Anterior fullness over the thyroid and into the soft tissues. No significant cellulitic changes. No fluctuance or soft tissue gas noted. Pharynx not erythematous. Uvula midline without trismus. Floor the mouth is soft and nontender normocephalic and atraumatic; Negative for trauma or tenderness Tympanic Membrane ED: Yes TM's clear Eyes PERRL and EOMs intact bilaterally General Eye ED: Negative for pale conjunctiva or scleral icterus Neck no lymphadenopathy, supple and no JVD General: Negative for tenderness Chest Wall inspection of chest normal and palpation of chest normal Chest: Negative for tenderness Resp normal respiratory effort and clear to auscultation bilaterally Effort and Inspection: Negative for respiratory distress or pain with movement Auscultation: Negative for rhonchi, wheezes or diminished lung sounds Cardio regular rate, regular rhythm, S1 normal heart sound, S2 normal heart sound and no murmurs Peripheral Pulses: pulses 2+ throughout GI normal to inspection, nondistended, normoactive bowel sounds, soft to palpation,non-tender, non-distended and no masses Back/Spine no CVA tenderness and no thoracic nor lumbar tenderness Extremity normal to inspection General Extremety ED: Negative for edema General Extremity: Negative for edema Neuro oriented x3, CN's II-XII intact bilaterally, no sensory deficits noted and gait normal Sensorium / Orientation: awake, alert, oriented to person, oriented to place andoriented to time Motor Exam: strength 5/5 throughout and strength abnormal Psych mental status grossly normal Skin no rashes or lesions noted and no wounds MDM MDM MDM Narrative Medical decision making narrative: Patient presents with fullness in her anterior neck and discomfort. Also concern for UTI. Currently on Cipro. IV line established. CBC with inflammation and elevated white count of 15.5 with hemoglobin 11.7 platelet count 317. Chemistries shows a sodium of 126 with potassium 3.1 and chloride of89. BUN was 10 and creatinine 0.75. Urinalysis unremarkable. CT of the neck with IV contrast obtained showed enlarged heterogenous thyroid gland with prominent lobulated hypodense mass lesion extending across the anterior thyroid isthmus with ill-defined margins and surrounding fat infiltration at the anterior aspect of the neck and numerous regional small lymph nodes. Findings suspicious for infiltrative locally aggressive thyroid neoplasm or potentially superinfected thyroid lesion. Patient started on clindamycin IV as she has penicillin allergy as well as sulfa allergy. Discussed results with patient. Alberto not have ENT available. Also discussed case with our general surgeon on-callDr. Rivera who recommended transfer to tertiary care center for definitive care. Patient would like to go to the [facility]. Discussed case with Dr. Finley at [facility] who accepted transfer of patientto their facility. It is unclear when a bed will be available. Care of patientturned over to night physician awaiting transfer to [facility]. Lab Data Attestation: I reviewed the patient's lab results. Labs: Laboratory Results - last 24 hr 03/15/25 03/15/25 16:59 17:19 WBC 15.5 H RBC 4.26 Hgb 11.7 L Hct 33.0 L MCV 77.5 L MCH 27.5 MCHC 35.5 RDW Std Deviation 42.2 RDW Coeff of Clarence 15.1 H Plt Count 317 MPV 9.4 Immature Gran % (Auto) 0.600 Neut % (Auto) 82.2 H Lymph % (Auto) 8.1 L [place] % (Auto) 8.9 Eos % (Auto) 0.1 Baso % (Auto) 0.1 Absolute Neuts (auto) 12.7 H Absolute Lymphs (auto) 1.26 Nucleated RBC % 0 Sodium 126 L Potassium 3.1 L Chloride 89 L Carbon Dioxide 23.1 Anion Gap 14 BUN 10 Creatinine 0.75 Estim Creat Clear Calc 57.51 Est GFR (MDRD) Non-Af 82 BUN/Creatinine Ratio 13.0 Glucose 154 H Lactic Acid 1.5 Calcium 9.1 TSH 2.390 Urine Color Yellow Urine Clarity Clear Urine pH 6.5 Ur Specific [place] 1.010 Urine Protein 15 H Urine Glucose (UA) Normal Urine Ketones 5 H Urine Occult Blood 25 H Urine Nitrite Negative Urine Bilirubin Negative Urine Urobilinogen Normal Ur Leukocyte Esterase Negative Urine RBC 0-5 SEEN Urine WBC 0-5 SEEN Ur Squamous Epith Cells 0 SEEN Urine Bacteria 0 SEEN Urine Mucus 0 SEEN Radiography Diagnostic Testing: Clinical Impression(s) from Imaging Studies Soft Tissue Neck CT 03/15/25 16:47 IMPRESSION: Enlarged heterogeneous thyroid gland with a prominent lobulated hypodense mass lesion extending across the anterior thyroid isthmus, with ill-defined margins and surrounding fat infiltration at the anterior aspect of the neck, and numerous regional small lymph nodes. Findings are suspicious for an infiltrative/locally aggressive thyroid neoplasm, or potentially superinfected thyroid lesion. Reading Location: [facility] Chest X-Ray 03/15/25 18:20 IMPRESSION: Cardiomegaly with suspected mild vascular congestion. Reading Location: [facility] Discharge Plan Triage Chief Complaint: Complaint ED Provider: Seamus Zhou Dx/Rx/DC Orders Clinical Impression: Thyroid mass, Acute hyponatremia, Acute hypokalemia Prescriptions: No Action (DME) lancets [Accu-Chek Multiclix Lancet] Misc See Rx Instructions .ROUTE .MEDSUPPLY Qty: 100 Rx Instructions: As directed (DME) handicap placard See Rx Instructions .Route .MEDSUPPLY Qty: 1 0RF Rx Instructions: As directed geriatric multivitamin-min Tablet 1 tab PO .QOD omeprazole 20 mg capsule,delayed release(DR/EC) 20 mg PO DAILY lansoprazole 30 mg capsule,delayed release(DR/EC) 30 mg PO DAILY (DME) blood-glucose meter Misc See Rx Instructions .ROUTE .MEDSUPPLY Qty: 1 0RF Rx Instructions: As directed (DME) lancets [Accu-Chek Softclix Lancets] Misc See Rx Instructions .ROUTE .MEDSUPPLY Qty: 100 3RF Rx Instructions: As directed use to test blood sugar twice daily and PRN (DME) Accu-Chek Guide test strips Strip See Rx Instructions .Route Qty: 100 6RF Rx Instructions: As directed (DME) accu-check avivia control solutions See Rx Instructions .Route .MEDSUPPLY Qty: 1 2RF Rx Instructions: as directed amlodipine 10 mg tablet 10 mg PO DAILY Qty: 90 3RF atorvastatin 10 mg tablet 10 mg PO QHS Qty: 90 3RF ergocalciferol (vitamin D2) 1,250 mcg (50,000 unit) capsule 1,250 mcg PO QWEEK Qty: 14 3RF irbesartan-hydrochlorothiazide [Avalide] 300-12.5 mg tablet 1 tab PO DAILY Qty: 90 3RF levothyroxine 75 mcg tablet 75 mcg PO DAILY Qty: 90 3RF metoprolol tartrate 25 mg tablet 25 mg PO BID Qty: 180 3RF albuterol sulfate 90 mcg/actuation HFA aerosol inhaler 2 inh inhalation Q6H PRN (Reason: bronchospasm) Qty: 8.5 5RF fluticasone furoate 100 mcg/actuation blister with device 1 inh inhalation Q24H Qty: 90 1RF metformin 500 mg tablet See Rx Instructions PO BID Qty: 270 3RF Rx Instructions: Take 500 mg (1 tab) each morning and 1000 mg (2 tabs) at suppertime. ciprofloxacin HCl 500 mg tablet 500 mg PO BID Qty: 14 0RF Primary Care Provider: Kaitlyn Condon Referrals: Kaitlyn Condon MD [Primary Care Provider] - Print Language: Ivorian Disposition Disposition: DC/Tx to Another Type of HCF What to do if you have Problems For any increased pain, shortness of breath, bleeding, nausea or vomiting, chestpain, or any unexpected problems, contact your Primary Care Provider. Call [facility] ([phone]) or report to the closest Emergency Room. Call 911 if necessary. 03/15/25 2330 <Electronically signed by Seamus Zhou DO> Cosigner Signature (if applicable): CC: Dr. Kaitlyn Condon MD ~ Signed [facility] Work Phone: 1(780) 508-930008-02-2025 Discharge summary [facility] Medical Records Department [address] [place] [address] Emergency Department Summary 03/15/25 MR#: [id number] Acct: [id number] Name: DL PARSONS Rep #:[id number] : 1945 79 From: Seamus Zhou DO PCP: Dr. Kaitlyn Condon MD Status:REG ER Location: ED ADDENDUM by Dr. Harpreet Noriega DO on 03/16/25 at 0531 Patient signed out to me awaiting bed availability at [facility]. She request to go here. [place] discussed with transfer line, discussed bed likely available collar band creaser after 7 AM. Will keep her in the ED awaiting bedfor transfer. She is treated with antibiotics for concerns for neoplasm with infection. She was given clindamycin little over 9 hours ago. Will schedule clindamycin every 8 hours. Clinically has been stable. 03/16/25 0531 Cosigner Signature (if applicable): cc: Dr. Kaitlyn Condon MD ~* Signed HPI History of Present Illness Chief Complaint: Complaint Detail of Chief Complaint: Dysuria Informant: patient Narrative Narrative: Patient presents to the emergency department with concern for urinary tract infection. Patient states that she was on nitrofurantoin a month ago and then 2- 1/2 days ago was started on Cipro which shestarted having dysuria again. Shehas had 3 UTIs this year. Since taking the Cipro she describes some fullness inher throat. She has had a cough. She denies fever. She states that she cannotstop shaking since taking the Cipro. She denies any pain in her back. She has had nausea but no vomiting. Patient also has been having some diarrhea since yesterday. [facility] Medical History (Updated 03/15/25 @ 20:[address] Seamus Zhou, DO) Family history of dementia Memory deficit Cancer On home oxygen therapy Hypertension Abdominal discomfort Occult blood positive stool Back pain Black stool Acute URI Urinary tract infection Need for influenza vaccination Syncope Wears glasses Post-menopausal Thyroid disease Diabetes Walker as ambulation aid Ambulates with cane Injury of head and neck Gastric reflux Non-smoker History of edema History of echocardiogram History of stress test Bronchitis Shortness of breath on exertion Obesity History of COVID-19 Incontinence Difficulty balancing when standing Knee pain Diarrhea Hemorrhoids COVID-19 Pancreatitis Asthma Arthritis Seasonal allergies Osteopenia Essential hypertension Ascending cholangitis Gallstone pancreatitis Home Medications ?Medication ?Instructions ?Recorded ?Last Taken ?Type lancets (Accu-Chek Multiclix #100 ea 07/02/20 Unknown History Lancet) geriatric multivitamin-min 1 tab PO .QOD 01/28/2209/16 History handicap placard #1 ea 07/06/23 Unknown Rx blood-glucose meter #1 ea 07/11/23 Unknown Rx lancets (Accu-Chek Softclix #100 ea 07/11/23 Unknown R x Lancets) blood sugar diagnostic (Accu-Chek #100 ea 10/31/23 Unk nown Rx Guide test strips) accu-check avivia control solutions #1 BOTTLE 07/23/24 Unknown Rx amlodipine 10 mg tablet 10 mg PO DAILY BLOOD PRESSUR E #90 07/23/24 10/09/24 Rx tabs atorvastatin 10 mg tablet 10 mg PO QHS CHOLESTEROL #90 tabs 07/23/24 10/08/24 Rx ergocalciferol (vitamin D2) 1,250 1,250 mcg PO QWEEK # 14 caps 07/23/24 10/08/24 Rx mcg (50,000 unit) capsule irbesartan 300 1 tab PO DAILY BP #90 tabs 1 09/23/23 10/08/24 Rx mg-hydrochlorothiazide 12.5 mg tablet (Avalide) levothyroxine 75 mcg tablet 75 mcg PO DAILY THYROID #9 0 tabs 07/23/24 10/09/24 Rx metoprolol tartrate 25 mg tablet 25 mg PO BID BLOOD SD ESSURE #180 07/23/24 10/09/24 Rx tabs albuterol sulfate 90 mcg/actuation 2 inh inhalation Q6 H PRN 10/25/24 Unknown Rx aerosol inhaler bronchospasm #8.5 grams fluticasone furoate 100 1 inh inhalation Q24H #90 ea 10/29/24 Unknown Rx mcg/actuation blister powder for inhalation metformin 500 mg tablet See Rx Instructions PO BID 0 01/31/25 Unknown Rx DIABETES #270 tabs omeprazole 20 mg capsule,delayed 20 mg PO DAILY Unknown History release ciprofloxacin HCl 500 mg tablet 500 mg PO BID #14 tabs 03/14/25 Unknown Rx lansoprazole 30 mg capsule,delayed 30 mg PO DAILY 09/08 Unknown History release Allergy/AdvReac Type Severity Reaction Status Date / Time Penicillins Allergy Rash Verified 03/15/25 16:21 Sulfa (Sulfonamide Allergy Rash Verified 03/15/25 16:21 Antibiotics) calcium AdvReac Constipatio Verified 03/15/25 16:21 n sertraline AdvReac Constipatio Verified 03/15/25 16:21 n Family History Mother Diabetes Heart disease Arthritis Hypertension Hyperlipemia Father Colon cancer Heart disease Hypertension Hyperlipemia Cancer prostate Myocardial infarction Surgical History Hx laparoscopic cholecystectomy History of ERCP History of colonoscopy Cataracts, bilateral H/O: hysterectomy Cholecystectomy planned Social History (Updated 03/15/25 @ 17:05 by Naila Taveras) household members: spouse housing: house Smoking Status: Never smoker alcohol intake: never substance use type: does not use what type of physical activity do you participate in: other details: yard work additional social history: pt denies vaping, denies marijuana use, denies edibles, denies aspirin, denies ibuprofen use. ROS ROS ED Review of Systems ROS Unobtainable: other Constitutional Constitutional ED: Reports lethargy; Denies chills, fever(s), sweats or weight loss Eyes Eyes: Denies blurry vision, change in vision or diplopia ENT ENT ED: Reports other Details: Anterior throat pain ; Denies rhinorrhea or sore throat Cardiovascular Cardiovascular: Denies chest pain, orthopnea or racing heartbeat Respiratory/Chest Respiratory/Chest: Reports cough and dyspnea; Denies dyspnea on exertion, orthopnea or sputum Gastrointestinal Gastrointestinal: Reports diarrhea, nausea and vomiting; Denies abdominal pain Genitourinary Genitourinary ED: Reports dysuria; Denies hematuria or urinary frequency Musculoskeletal Musculoskeletal: Denies arthralgias, back pain, myalgias or neck pain Integumentary Denies abscess, Abrasions or rash Neurologic Neurologic: Denies headache(s) or weakness Psychiatric Psychiatric: Denies anxiety, depression or suicidal thoughts Endocrine Endocrinology: Denies polydipsia, polyphagia or polyuria Hematologic/Lymphatic Hematologic/Lymphatic: Denies easy bleeding, easy bruising or lymphadenopathy Allergic/Immunologic Allergic/Immunologic ED: Denies mouth swelling, tongue swelling or urticaria EXAM Physical Exam Const Vital Signs: 03/15/25 16:16 03/15/25 17:04 03/15/25 18:00 Temperature 99.3 F H 98.3 F 100 F H Temperature Source Oral Oral Oral Pulse Rate 101 H 80 94 Respiratory Rate 18 18 18 Blood Pressure 142/114 H 120/78 152/82 H Blood Pressure Mean 123 92 105 Pulse Ox 94 98 96 Oxygen Delivery Method Room Air Room Air Room Air 03/15/25 19:00 03/15/25 20:00 03/15/25 21:00 Temperature 99.7 F H 99.8 F H 100.3 F H Temperature Source Oral Oral Oral Pulse Rate 102 H 106 H 110 H Respiratory Rate 16 18 20 H Blood Pressure 141/77 H 156/101 H 119/92 H Blood Pressure Mean 98 119 101 Pulse Ox 95 93 94 Oxygen Delivery Method Room Air Room Air Room Air 03/15/25 22:00 03/15/25 23:00 Temperature 99.8 F H 99.5 F H Temperature Source Oral Oral Pulse Rate 106 H 107 H Respiratory Rate 18 18 Blood Pressure 141/67 H 118/91 H Blood Pressure Mean 91 100 Pulse Ox 97 94 Oxygen Delivery Method Room Air Room Air Positive well nourished and well developed General Appearance ED: well developed and NAD HEENT Reports TM's clear and moist mucous membranes HEENT Narrative: Anterior fullness over the thyroid and into the soft tissues. No significant cellulitic changes. Nofluctuance or soft tissue gas noted. Pharynx not erythematous. Uvula midline without trismus. Floorthe mouth is soft and nontender normocephalic and atraumatic; Negative for trauma or tenderness Tympanic Membrane ED: Yes TM's clear Eyes PERRL and EOMs intact bilaterally General Eye ED: Negative for pale conjunctiva or scleral icterus Neck no lymphadenopathy, supple and no JVD General: Negative for tenderness Chest Wall inspection of chest normal and palpation of chest normal Chest: Negative for tenderness Resp normal respiratory effort and clear to auscultation bilaterally Effort and Inspection: Negative for respiratory distress or pain with movement Auscultation: Negative for rhonchi, wheezes or diminished lung sounds Cardio regular rate, regular rhythm, S1 normal heart sound, S2 normal heart sound and no murmurs Peripheral Pulses: pulses 2+ throughout GI normal to inspection, nondistended, normoactive bowel sounds, soft to palpation,non-tender, non-distended and no masses Back/Spine no CVA tenderness and no thoracic nor lumbar tenderness Extremity normal to inspection General Extremety ED: Negative for edema General Extremity: Negative for edema Neuro oriented x3, CN's II-XII intact bilaterally, no sensory deficits noted and gait normal Sensorium / Orientation: awake, alert, oriented to person, oriented to place andoriented to time Motor Exam: strength 5/5 throughout and strength abnormal Psych mental status grossly normal Skin no rashes or lesions noted and no wounds MDM MDM MDM Narrative Medical decision making narrative: Patient presents with fullness in her anterior neck and discomfort. Also concern for UTI. Currentlyon Cipro. IV line established. CBC with inflammation and elevated white count of 15.5 with hemoglobin 11.7 platelet count 317. Chemistries shows a sodium of 126 with potassium 3.1 and chloride of89. BUN was 10 and creatinine 0.75. Urinalysis unremarkable. CT of the neck with IV contrast obtained showed enlarged heterogenous thyroid gland with prominent lobulated hypodense mass lesion extending across the anterior thyroid isthmus with ill- defined margins and surrounding fat infiltration at the anterior aspect of the neck and numerous regional small lymph nodes. Findings suspicious for infiltrat karin locally aggressive thyroid neoplasm or potentially superinfected thyroid lesion. Patient started on clindamycin IV as she has penicillin allergy as well as sulfa allergy. Discussed results with patient. Wedo not have ENT available. Also discussed case with our general surgeon on-callDr. Rivera who recommended transfer to tertiary care center for definitive care. Patient would like to go to the [facility]. Discussed case with Dr. Finley at [facility] who accepted transfer of patientto their facility. It is unclear when a bed will be available. Care of patientturned over to night physician awaiting transfer to [facility]. Lab Data Attestation: I reviewed the patient's lab results. Labs: Laboratory Results - last 24 hr 03/15/25 03/15/25 16:59 17:19 WBC 15.5 H RBC 4.26 Hgb 11.7 L Hct 33.0 L MCV 77.5 L MCH 27.5 MCHC 35.5 RDW Std Deviation 42.2 RDW Coeff of Clarence 15.1 H Plt Count 317 MPV 9.4 Immature Gran % (Auto) 0.600 Neut % (Auto) 82.2 H Lymph % (Auto) 8.1 L [place] % (Auto) 8.9 Eos % (Auto) 0.1 Baso % (Auto) 0.1 Absolute Neuts (auto) 12.7 H Absolute Lymphs (auto) 1.26 Nucleated RBC % 0 Sodium 126 L Potassium 3.1 L Chloride 89 L Carbon Dioxide 23.1 Anion Gap 14 BUN 10 Creatinine 0.75 Estim Creat Clear Calc 57.51 Est GFR (MDRD) Non-Af 82 BUN/Creatinine Ratio 13.0 Glucose 154 H Lactic Acid 1.5 Calcium 9.1 TSH 2.390 Urine Color Yellow Urine Clarity Clear Urine pH 6.5 Ur Specific [place] 1.010 Urine Protein 15 H Urine Glucose (UA) Normal Urine Ketones 5 H Urine Occult Blood 25 H Urine Nitrite Negative Urine Bilirubin Negative Urine Urobilinogen Normal Ur Leukocyte Esterase Negative Urine RBC 0-5 SEEN Urine WBC 0-5 SEEN Ur Squamous Epith Cells 0 SEEN Urine Bacteria 0 SEEN Urine Mucus 0 SEEN Radiography Diagnostic Testing: Clinical Impression(s) from Imaging Studies Soft Tissue Neck CT 03/15/25 16:47 IMPRESSION: Enlarged heterogeneous thyroid gland with a prominent lobulated hypodense mass lesion extending across the anterior thyroid isthmus, with ill-defined margins and surrounding fat infiltration at the anterior aspect of the neck, and numerous regional small lymph nodes. Findings are suspicious for an infiltrative/locally aggressive thyroid neoplasm,or potentially superinfected thyroid lesion. Reading Location: [facility] Chest X-Ray 03/15/25 18:20 IMPRESSION: Cardiomegaly with suspected mild vascular congestion. Reading Location: [facility] Discharge Plan Triage Chief Complaint: Complaint ED Provider: Seamus Zhou Dx/Rx/DC Orders Clinical Impression: Thyroid mass, Acute hyponatremia, Acute hypokalemia Prescriptions: No Action (DME) lancets [Accu-Chek Multiclix Lancet] Misc See Rx Instructions .ROUTE .MEDSUPPLY Qty: 100 Rx Instructions: As directed (DME) handicap placard See Rx Instructions .Route .MEDSUPPLY Qty: 1 0RF Rx Instructions: As directed geriatric multivitamin-min Tablet 1 tab PO .QOD omeprazole 20 mg capsule,delayed release(DR/EC) 20 mg PO DAILY lansoprazole 30 mg capsule,delayed release(DR/EC) 30 mg PO DAILY (DME) blood-glucose meter Misc See Rx Instructions .ROUTE .MEDSUPPLY Qty: 1 0RF Rx Instructions: As directed (DME) lancets [Accu-Chek Softclix Lancets] Misc See Rx Instructions .ROUTE .MEDSUPPLY Qty: 100 3RF Rx Instructions: As directed use to test blood sugar twice daily and PRN (DME) Accu-Chek Guide test strips Strip See Rx Instructions .Route Qty: 100 6RF Rx Instructions: As directed (DME) accu-check avivia control solutions See Rx Instructions .Route .MEDSUPPLY Qty: 1 2RF Rx Instructions: as directed amlodipine 10 mg tablet 10 mg PO DAILY Qty: 90 3RF atorvastatin 10 mg tablet 10 mg PO QHS Qty: 90 3RF ergocalciferol (vitamin D2) 1,250 mcg (50,000 unit) capsule 1,250 mcg PO QWEEK Qty: 14 3RF irbesartan-hydrochlorothiazide [Avalide] 300-12.5 mg tablet 1 tab PO DAILY Qty: 90 3RF levothyroxine 75 mcg tablet 75 mcg PO DAILY Qty: 90 3RF metoprolol tartrate 25 mg tablet 25 mg PO BID Qty: 180 3RF albuterol sulfate 90 mcg/actuation HFA aerosol inhaler 2 inh inhalation Q6H PRN (Reason: bronchospasm) Qty: 8.5 5RF fluticasone furoate 100 mcg/actuation blister with device 1 inh inhalation Q24H Qty: 90 1RF metformin 500 mg tablet See Rx Instructions PO BID Qty: 270 3RF Rx Instructions: Take 500 mg (1 tab) each morning and 1000 mg (2 tabs) at suppertime. ciprofloxacin HCl 500 mg tablet 500 mg PO BID Qty: 14 0RF Primary Care Provider: Kaitlyn Condon Referrals: Kaitlyn Condon MD [Primary Care Provider] - Print Language: Ivorian Disposition Disposition: DC/Tx to Another Type of HCF What to do if you have Problems For any increased pain, shortness of breath, bleeding, nausea or vomiting, chestpain, or any unexpected problems, contact your Primary Care Provider. Call [facility] ([phone]) or report tothe closest Emergency Room. Call 911 if necessary. 03/15/25 2330 Cosigner Signature (if applicable): CC: Dr. Kaitlyn Condon MD ~ Signed [facility]08-01-2025 Radiology Diagnostic study note [facility] Imaging Services [address] [place] [address] [id number] Soft Tissue Neck WITH Contrast MR#: [id number] Acct: [id number] Name: DL PARSONS Rep #: [id number] : 1945 F 79 From: Alejandro Thomas MD PCP: Dr. Kaitlyn Condon MD Status: REG ER Study:Soft Tissue Neck WITH Contrast Date of Exam: 03/15/25 Exam# [id number] Ordering Dr: Marilin Zhou DO PROCEDURE: SOFT TISSUE NECK WITH CONTRAST 03/15/2025 REASON FOR EXAM: SUBMANDIBULAR FULLNESS, PAIN TECHNIQUE: CT soft tissue neck with IV contrast. Multiplanar 2D reconstructions were performed. CONTRAST: Isovue 370 VOLUME: 100 mL One or more dose reduction techniques were used (e.g., Automated exposure control, adjustment of the mA and/or kV according to patient size, use of iterative reconstruction technique). RADIATION DOSE SUMMARY: CTDlvol: 17.58 mGy DLP: 562.2 mGycm COMPARISON: None. FINDINGS: The thyroid gland is enlarged and heterogeneous, with large ill-defined hypodense lobulated lesion extending across the anterior thyroid isthmus and anterior left lobe, with macrocalcification. There is associated surrounding regional fat infiltration which is indistinct from the overlying strap muscles, with infiltration of the superior mediastinum anterior paratracheal fat. Superiorly there is mild subcutaneous fatty infiltration in the anterior neck. No drainable fluid collection. Innumerable regional cervical lymph nodes subcentimeter in size, which may be reactive but are indeterminate. The airway is patent and midline without any significant narrowing. Lung apicesare clear. Major cervical vascular structures are patent, normal in course and caliber. Normal, symmetric appearance of the bilateral major salivary glands. Absent [place] ocular lenses. There appears to be a small right orbital venous varix posteromedially to the right globe. Visualized osseous structures are intact. Mild multilevel degenerative changes of the spine. No osseous lytic or blastic lesion identified. Well-aerated paranasal sinuses and bilateral mastoid air cells. CT/Soft Tissue Neck WITH Contrast IMPRESSION: Enlarged heterogeneous thyroid gland with a prominent lobulated hypodense mass lesion extending across the anterior thyroid isthmus, with ill-defined margins and surrounding fat infiltration at the anterior aspect of the neck, and numerous regional small lymph nodes. Findings are suspicious for an infiltrative/locally aggressive thyroid neoplasm,or potentially superinfected thyroid lesion. Reading Location: [facility] CC: Dr. Kaitlyn Condon MD; Dr. Seamus Zhou DO ~ Rail Operator: Signed [facility]08-01-2025 Radiology Diagnostic study note [facility] Imaging Services [address], [place] [id number] Chest 1 View (Portable) MR#: [id number] Acct: [id number] Name: DL PARSONS Rep #: [id number] : 1945 F 79 From: Shobha Meng MD PCP: Dr. Kaitlyn Condon MD Status: [facility] ER Study:Chest 1 View (Portable) Date of Exam: 03/15/25 Exam# [id number] Ordering Dr: Marilin Zhou DO PROCEDURE: CHEST 1 VIEW (PORTABLE) 03/15/2025 REASON FOR EXAM: COUGH TECHNIQUE: Frontal view of the chest. COMPARISON: Chest PA and Lateral - 19-Feb-2025 1:03 AM FINDINGS: LUNGS AND PLEURA: Mildly diminished lung volumes bilaterally. No focal airspace consolidation. No pleural effusion or pneumothorax. HEART AND MEDIASTINUM: The cardiac silhouette is mildly enlarged. The mediastinal contour is normal. PULMONARY VESSELS: Mild prominence of the central pulmonary vasculature. BONES: No acute osseous abnormality. Moderate thoracic dextroscoliosis. RAD/Chest 1 View (Portable) IMPRESSION: Cardiomegaly with suspected mild vascular congestion. Reading Location: [facility] CC: Dr. Kaitlyn Condon MD; Dr. Seamus Zhou DO ~ Rail Operator: Signed [facility]07-08-2025 Radiology Diagnostic study note [facility] Imaging Services [address] [place] [address] Chest PA and Lateral MR#: [id number] Acct: [id number] Name: DL PARSONS Rep #: [id number] : 1945 F 79 From: Brian Garcia MD PCP: Dr. Kaitlyn Condon MD Status: [facility] ER Study:Chest PA and Lateral Date of Exam: 02/19/25 Exam# [id number] Ordering Dr: Dennise Weathers DO PROCEDURE: CHEST PA AND LATERAL 02/19/2025 REASON FOR EXAM: DYSPNEA TECHNIQUE: CHEST PA AND LATERAL COMPARISON: 2023 FINDINGS: Poor inspiratory effort. Exaggerated hilar bronchovascular markings suggesting mild congestion. Minimal bilateral perihilar bronchial wall thickening suggesting bronchitis. Bilateral basilar atelectasis are noted. No effusion. No pneumothorax. Normal cardiac size. Aortic atherosclerotic calcifications. Moderate dextroscoliosis. No definite acute trips abnormalities RAD/Chest PA and Lateral IMPRESSION: Poor inspiratory effort. Exaggerated hilar bronchovascular markings suggesting mild congestion. Minimal bilateral perihilar bronchial wall thickening suggesting bronchitis. New as compared to the. Follow-up is advised Reading Location: [facility] CC: Dr. 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: Signed [facility]07-05-2025 Evaluation note* Diagnosis Onset Date Resolution Status Admit Date Acute cystitis with hematuria acute February 16, 2025 10:41am Dysuria acute March 27, 2 025 10:59am Thyroid mass of unclear etiology acute March 27 10:59am Hypothyroidism chronic March 10:59am Acute URI acute April 10:00am Papillary carcinoma of thyroid acute May 14, 2025 10:00am [facility] Work Phone: [phone]) 140-772504-16-2025 Evaluation note* Diagnosis Onset Date Resolution Status Admit Date Barretts esophagus acute November 28, 2024 8:55am Essential hypertension chronic 2024 8:29am Hyperlipidemia chronic December 19, 025 8:29am Hypothyroidism chronic December 19, 2 025 8:29am Obesity chronic December 19, 2024 8:29am Osteopenia December 19, 2024 8:29am Type 2 diabetes mellitus December 19, 2024 8:29am [facility] Work Phone: 1(645) 603-814104-16-2025 Evaluation note* Diagnosis Onset Date Resolution Status Admit Date Barretts esophagus acute November 28, 2024 8:55am Essential hypertension chronic 2024 8:29am Hyperlipidemia December 19, 025 8:29am Hypothyroidism December 19, 2 025 8:29am Obesity chronic December 19, 2024 8:29am Osteopenia chronic December 19, 2024 8:29am Type 2 diabetes mellitus chronic December 19, 2024 8:29am Acute cystitis with hematuria acute February 16, 2025 10:41am [facility] Work Phone: 1(976) 531-874204-16-2025 Evaluation note* Diagnosis Onset Date Resolution Status Admit Date Barretts esophagus acute November 28, 2024 8:55am Essential hypertension chronic 2024 8:29am Hyperlipidemia chronic December 19, 2 025 8:29am Hypothyroidism chronic December 19, 2 025 8:29am Obesity chronic December 19, 2024 8:29am Osteopenia chronic December 19, 2024 8:29am Type 2 diabetes mellitus chronic December 19, 2024 8:29am Acute cystitis with hematuria acute February 16, 2025 10:41am Dysuria acute March 27, 2 025 10:59am Thyroid mass of unclear etiology acu te March 27, 2025 10:59am Hypothyroidism chronic March 10:59am [facility] Work Phone: 1(725) 329-844202-25-2025 [facility] Medical Records Department [address] [place] [address] History Physical Exam 10/09/24 0712 MR#: [id number] Acct: [id number] Name: DL PARSONS Rep #: [id number] : 1945 79 From: Trevon Vee MD PCP: Dr. Kaitlyn Condon MD Status:[facility] Location: [place] [address] History and Physical Date of Admission: 10/09/24 Intake Vital Signs 08/22/2507:34 09/05/2512:47 Height 4 ft 11 in 5 ft Weight: 188 lb 189 lb 8 oz BMI 38.0 37.0 BP 135/72 H 146/73 H Blood Pressure Location Rt brachial Rt brachial Position Sitting Sitting Respiration 18 17 Pulse 77 80 Pulse Source Monitor Monitor Temp 98.1 F Temp Source Temporal Pulse Oximetry (%) 95 92 Oxygen Delivery Method room air room air Intake Visit Reasons: GERD POSITIVE OCCULT Chief Complaint: gerd positive occult Is patient in pain?: No Allergies Penicillins Allergy (Verified 09/05/24 13:48) RashSulfa (Sulfonamide Antibiotics) Allergy (Verified 09/05/24 13:48) Rashcalcium Adverse Reaction (Verified 09/05/24 13:48) Constipationsertraline Adverse Reaction (Verified 09/05/24 13:48) Constipation Medications ???Medication ???Instructions ???Recorded ???Confirmed ???Type lancets (Accu-Chek Multiclix #100 ea 07/02/20 09/05/24 History Lancet) fluticasone propionate 110 2 puff inhalation BID #12 grams 12/07/21 09/05/24 Rx mcg/actuation HFA aerosol inhaler (Flovent HFA) geriatric multivitamin-min 1 tab PO MOTH 01/28/22 09/05/24 History handicap placard #1 ea 07/06/23 09/05/24 Rx blood-glucose meter #1 ea 07/11/23 09/05/24 Rx lancets (Accu-Chek Softclix #100 ea 07/11/23 09/05/24 Rx Lancets) alcohol swabs 1 pad topical BID #100 ea 07/18/23 09/05/24 Rx blood sugar diagnostic (Accu-Chek #100 ea 10/31/23 09/05/24 Rx Guide test strips) potassium chloride 8 mEq 8 meq PO BID #180 caps 02/25/24 09/05/24 Rx capsule,extended release albuterol sulfate 90 mcg/actuation 2 inh inhalation Q6H PRN 05/30/24 09/05/24 Rx aerosol inhaler bronchospasm #8.5 grams accu-check avivia control solutions #1 BOTTLE 07/23/24 09/05/24 Rx amlodipine 10 mg tablet 10 mg PO DAILY BLOOD PRESSURE #90 07/23/24 09/05/24 Rx tabs atorvastatin 10 mg tablet 10 mg PO QHS CHOLESTEROL #90 tabs 07/23/24 09/05/24 Rx ergocalciferol (vitamin D2) 1,250 1,250 mcg PO QWEEK #14 caps 07/23/24 09/05/24 Rx mcg (50,000 unit) capsule irbesartan 300 1 tab PO DAILY BP #90 tabs 07/23/24 09/05/24 Rx mg-hydrochlorothiazide 12.5 mg tablet (Avalide) lansoprazole 30 mg capsule,delayed 30 mg PO DAILY #90 caps 07/23/24 09/05/24 Rx release levothyroxine 75 mcg tablet 75 mcg PO DAILY THYROID #90 tabs 07/23/24 09/05/24 Rx metformin 500 mg tablet 500 mg PO BID DIABETES #180 tabs 07/23/24 09/05/24 Rx metoprolol tartrate 25 mg tablet 25 mg PO BID BLOOD PRESSURE #180 07/23/24 09/05/24 Rx tabs ondansetron 4 mg disintegrating 4 mg PO Q8H PRN nausea and 08/23/24 09/05/24 Rx tablet vomiting #10 tabs Have you fallen in the past year?: No PFSH Medical History (Updated 09/05/24 @ 13:47 by Adele Baca) Abdominal discomfort Occult blood positive stool Back pain Black stool Acute URI Urinary tract infection Need for influenza vaccination Syncope Wears glasses Post-menopausal Thyroid disease Diabetes Walker as ambulation aid Ambulates with cane Injury of head and neck Gastric reflux Non-smoker History of edema History of echocardiogram History of stress test Bronchitis Shortness of breath on exertion Obesity History of COVID-19 Incontinence Difficulty balancing when standing Knee pain Diarrhea Hemorrhoids COVID-19 Pancreatitis Asthma Arthritis Seasonal allergies Osteopenia Essential hypertension Ascending cholangitis Gallstone pancreatitis Surgical History Hx laparoscopic cholecystectomy History of ERCP History of colonoscopy Cataracts, bilateral H/O: hysterectomy Cholecystectomy planned Family History Mother Diabetes Heart disease Arthritis Hypertension HyperlipemiaFather Colon cancer Heart disease Hypertension Hyperlipemia Cancer prostate Myocardial infarction Social History Smoking Status: Never smoker alcohol intake: never substance use type: does not use what type of physical activity do you participate in: other details: yard work additional social history: pt denies vaping, denies marijuana use, denies edibles, denies aspirin, denies ibuprofen use. HPI HPI HPI: Patient is a 79-year-old female who comes in with multiple complaints. She reports that for the last 2 to 3 weeks she has been having epigastric pain and nausea and sh (more content not included)...[facility] Diagnosis Onset Date Resolution Status BRBPR (bright red blood per rectum) acute Chest discomfort acute Dyspnea acute Asthma chronic Essential hypertension chron ic GERD (gastroesophageal reflux disease) chronic Hyperlipidemia chronic Hypothyroidism chronic Obesity chronic Type 2 diabetes mellitus chr onic BRBPR (bright red blood per rectum) acute [facility] Work Phone: Evaluation note* Diagnosis Onset Date Resolution Status BRBPR (bright red blood per rectum) acute Chest discomfort acute Dyspnea acute Asthma chronic Essential hypertension chron ic GERD (gastroesophageal reflux disease) chronic Hyperlipidemia chronic Hypothyroidism chronic Obesity chronic Type 2 diabetes mellitus chr onic BRBPR (bright red blood per rectum) acute BRBPR (bright red blood per rectum) acute [facility] Work Phone: Evaluation note* Diagnosis Onset Date Resolution Status Essential hypertension chron ic GERD (gastroesophageal reflux disease) chronic Hyperlipidemia chronic Hypothyroidism chronic Obesity chronic Type 2 diabetes mellitus chr onic [facility] Work Phone: Evaluation note* Diagnosis HYPERTENSION NOS Unspecified essential hypertension PURE HYPERCHOLESTEROLEM Pure hypercholesterolemia DIABETES MELLITUS TYPE II UNCONTR UNCOMPL Type II or unspecified type diabetes mellitus without mention of complication, uncontrolled Esophageal reflux SLEEP APNEA NOS Unspecified sleep apnea Vitamin D deficiency Unspecified vitamin D deficiency Asymptomatic postmenopausal status (age-related) (natural) Screening for malignant neoplasm of breast Breast screening, unspecified Hypothyroid Unspecified hypothyroidism Osteopenia Disorder of bone and cartilage, unspecified Need for prophylactic vaccination and inoculation against influenza Dupuytren's contracture of hand Contracture of palmar fascia Low blood potassium Hypopotassemia Difficulty walking- Primary Difficulty in walking Chest pain, unspecified type Stress Other psychological or physical stress, not elsewhere classified Gait instability Abnormality of gait Chest pain Chest pain, unspecified Ataxia Lack of coordination Essential hypertension Unspecified essential hypertension Class 2 obesity due to excess calories without serious comorbidity with body mass index (BMI) of 37.0 to 37.9 in adult Hypothyroid Unspecified hypothyroidism Diabetes mellitus type 2, uncomplicated (HCC) Type II or unspecified type diabetes mellitus without mention of complication, not stated as uncontrolled Thyroid mass Unspecified disorder of thyroid Thyroid mass Unspecified disorder of thyroid [facility] HYPERTENSION NOS Unspecified essential hypertension PURE HYPERCHOLESTEROLEM Pure hypercholesterolemia DIABETES MELLITUS TYPE II UNCONTR UNCOMPL Type II or unspecified type diabetes mellitus without mention of complication, uncontrolled Esophageal reflux SLEEP APNEA NOS Unspecified sleep apnea Vitamin D deficiency Unspecified vitamin D deficiency Asymptomatic postmenopausal status (age-related) (natural) Screening for malignant neoplasm of breast Breast screening, unspecified Hypothyroid Unspecified hypothyroidism Osteopenia Disorder of bone and cartilage, unspecified Need for prophylactic vaccination and inoculation against influenza Dupuytren's contracture of hand Contracture of palmar fascia Low blood potassium Hypopotassemia Difficulty walking- Primary Difficulty in walking Chest pain, unspecified type Stress Other psychological or physical stress, not elsewhere classified Gait instability Abnormality of gait Chest pain Chest pain, unspecified Ataxia Lack of coordination Essential hypertension Unspecified essential hypertension Class 2 obesity due to excess calories without serious comorbidity with body mass index (BMI) of 37.0 to 37.9 in adult Hypothyroid Unspecified hypothyroidism Diabetes mellitus type 2, uncomplicated (HCC) Type II or unspecified type diabetes mellitus without mention of complication, not stated as uncontrolled Thyroid mass- Primary Unspecified disorder of thyroid documented in this encounter [facility] note* Diagnosis HYPERTENSION NOS Unspecified essential hypertension PURE HYPERCHOLESTEROLEM Pure hypercholesterolemia DIABETES MELLITUS TYPE II UNCONTR UNCOMPL Type II or unspecified type diabetes mellitus without mention of complication, uncontrolled Esophageal reflux SLEEP APNEA NOS Unspecified sleep apnea Vitamin D deficiency Unspecified vitamin D deficiency Asymptomatic postmenopausal status (age-related) (natural) Screening for malignant neoplasm of breast Breast screening, unspecified Hypothyroid Unspecified hypothyroidism Osteopenia Disorder of bone and cartilage, unspecified Need for prophylactic vaccination and inoculation against influenza Dupuytren's contracture of hand Contracture of palmar fascia Low blood potassium Hypopotassemia Difficulty walking- Primary Difficulty in walking Chest pain, unspecified type Stress Other psychological or physical stress, not elsewhere classified Gait instability Abnormality of gait Chest pain Chest pain, unspecified Ataxia Lack of coordination Essential hypertension Unspecified essential hypertension Class 2 obesity due to excess calories without serious comorbidity with body mass index (BMI) of 37.0 to 37.9 in adult Hypothyroid Unspecified hypothyroidism Diabetes mellitus type 2, uncomplicated (HCC) Type II or unspecified type diabetes mellitus without mention of complication, not stated as uncontrolled Papillary thyroid carcinoma (HCC)- Primary Malignant neoplasm of thyroid gland documented in this encounter [facility] note* Diagnosis HYPERTENSION NOS Unspecified essential hypertension PURE HYPERCHOLESTEROLEM Pure hypercholesterolemia DIABETES MELLITUS TYPE II UNCONTR UNCOMPL Type II or unspecified type diabetes mellitus without mention of complication, uncontrolled Esophageal reflux SLEEP APNEA NOS Unspecified sleep apnea Vitamin D deficiency Unspecified vitamin D deficiency Asymptomatic postmenopausal status (age-related) (natural) Screening for malignant neoplasm of breast Breast screening, unspecified Hypothyroid Unspecified hypothyroidism Osteopenia Disorder of bone and cartilage, unspecified Need for prophylactic vaccination and inoculation against influenza Dupuytren's contracture of hand Contracture of palmar fascia Low blood potassium Hypopotassemia Difficulty walking- Primary Difficulty in walking Chest pain, unspecified type Stress Other psychological or physical stress, not elsewhere classified Gait instability Abnormality of gait Ataxia Lack of coordination Essential hypertension Unspecified essential hypertension Hypothyroid Unspecified hypothyroidism Diabetes mellitus type 2, uncomplicated (HCC) Type II or unspecified type diabetes mellitus without mention of complication, not stated as uncontrolled Preoperative examination- Primary Preoperative examination, unspecified Class 2 obesity due to excess calories without serious comorbidity with body mass index (BMI) of 36.0 to 36.9 in adult Microcytic anemia Iron deficiency anemia, unspecified Acquired hypothyroidism Unspecified hypothyroidism MYLES (obstructive sleep apnea) Obstructive sleep apnea (adult) (pediatric) Moderate persistent asthma without complication (HCC) Unspecified asthma Mixed hyperlipidemia Essential hypertension Unspecified essential hypertension Gastroesophageal reflux disease, unspecified whether esophagitis present Type 2 diabetes mellitus without complication, without long-term current use of insulin (HCC) Leg edema Edema Preoperative examination Preoperative examination, unspecified * Assessment & Plan Note - Hemalatha Tellez PA-C - 04/19/2025 12:28 PM EDT Associated Problem(s): Leg edema Assessment: Pt reports edema by the end of the day. Swelling is controlled with compression stockings. Trace edema BLE on exam today. * Assessment & Plan Note - Hemalatha Tellez PA-C - 04/19/2025 12:27 PM EDT Associated Problem(s): Diabetes mellitus type 2, uncomplicated (HCC) Assessment: Compliant on metformin. Does monitor BG at home, FBS ~140-150s. A1C 7.5% 03/2025. Managed by PCP. Hemoglobin A1C (%) Date Value 03/17/2025 7.5 03/10/2020 7.1 07/26/2019 7.0 06/27/2019 6.9 02/21/2019 6.8 11/24/2018 6.9 * Assessment & Plan Note - Hemalatha Tellez PA-C - 04/19/2025 12:26 PM EDT Associated Problem(s): Esophageal reflux Assessment: Stable, sx managed on Prevacid PRN. * Assessment & Plan Note - Hemalatha Tellez PA-C - 04/19/2025 12:25 PM EDT Associated Problem(s): Essential hypertension Assessment: Controlled on current medication regimen, BP today 144/76. Last 14 BP Last 14 Encounter BP Readings: Date: BP: 04/19/2025 144/76 03/20/2025 135/70 03/15/2025 125/83 03/12/2020 118/70 11/27/2019 139/86 09/11/2019 134/71[Home wrist cuff[ 08/27/2019 132/70 08/23/2019 150/88 07/25/2019 133/78 07/25/2019 172/92 07/19/2019 144/76 07/02/2019 148/84 03/02/2019 128/68 12/14/2018 138/70 * Assessment & Plan Note - Hemalatha Tellez PA-C - 04/19/2025 12:25 PM EDT Associated Problem(s): Mixed hyperlipidemia Assessment: On Lipitor. * Assessment & Plan Note - Hemalatha Tellez PA-C - 04/19/2025 11:42 AM EDT Associated Problem(s): Moderate persistent asthma without complication (HCC) Assessment: Stable, uses Arnuity daily and albuterol PRN. Managed by PCP. Pt reports she uses albuterol more frequently with hot/humid weather. Pt was instructed after discharge last month to use albuterol daily prior to using Arnuity, which she has been doing up until 2 days ago. She reports that she has not needed albuterol for the past two days. Pt reports that she is able to climb a flight ofstairs at home, but has to stop after 3 steps due to leg fatigue/weakness, denies Shortness of Breath. Lungs CTAB, SpO2 97% on RA. * Assessment & Plan Note - Hemalatha Tellez PA-C - 04/19/2025 11:39 AM EDT Associated Problem(s): MYLES (obstructive sleep apnea) Assessment: Unable to tolerate CPAP. Uses supplemental O2 QHS, 2.5L NC. * Assessment & Plan Note - Hemalatha Tellez PA-C - 04/19/2025 11:39 AM EDT Associated Problem(s): Hypothyroid Assessment: On levothyroxine. TSH Date Value Ref Range Status 03/17/2025 1.120 0.270 - 4.200 mIU/L Final * Assessment & Plan Note - Hemalatha Tellez PA-C - 04/19/2025 11:39 AM EDT Associated Problem(s): Microcytic anemia Images from the original note were not included. Assessment: CBC pending. Latest Ref Rng & Units 07/26/2019 03/10/2020 03/17/2025 CBC WBC 3.70 - 11.00 k/uL 8.73 7.95 8.90 RBC 3.90 - 5.20 m/uL 4.58 4.77 4.26 Hemoglobin 11.5 - 15.5 g/dL 12.3 12.9 11.2 Hematocrit 36.0 - 46.0 % 37.9 41.9 34.1 MCV 80.0 - 100.0 fL 82.8 87.8 80.0 MCH 26.0 - 34.0 pg 26.9 27.0 26.3 MCHC 30.5 - 36.0 g/dL 32.5 30.8 32.8 RDW-CV 11.5 - 15.0 % 14.7 14.6 15.5 Platelet Count 150 - 400 k/uL 400 436 314 MPV 9.0 - 12.7 fL 9.6 10.3 9.6 Baso% % 0.3 Abs Neut (ANC) 1.45 - 7.50 k/uL 7.37 Abs Lymph 1.00 - 4.00 k/uL 0.92 Abs [place] <0.87 k/uL 0.40 Abs Eosin <0.46 k/uL 0.13 Abs Baso <0.11 k/uL 0.03 NRBC /100 WBC 0.0 * Assessment & Plan Note - Hemalatha Tellez PA-C - 04/19/2025 11:38 AM EDT Associated Problem(s): Class 2 obesity due to excess calories without serious comorbidity with bodymass index (BMI) of 36.0 to 36.9 in adult Assessment: Body mass index is 36.64 kg/m . [facility] Diagnosis HYPERTENSION NOS Unspecified essential hypertension PURE HYPERCHOLESTEROLEM Pure hypercholesterolemia DIABETES MELLITUS TYPE II UNCONTR UNCOMPL Type II or unspecified type diabetes mellitus without mention of complication, uncontrolled Esophageal reflux SLEEP APNEA NOS Unspecified sleep apnea Vitamin D deficiency Unspecified vitamin D deficiency Asymptomatic postmenopausal status (age-related) (natural) Screening for malignant neoplasm of breast Breast screening, unspecified Hypothyroid Unspecified hypothyroidism Osteopenia Disorder of bone and cartilage, unspecified Need for prophylactic vaccination and inoculation against influenza Dupuytren's contracture of hand Contracture of palmar fascia Low blood potassium Hypopotassemia Difficulty walking- Primary Difficulty in walking Chest pain, unspecified type Stress Other psychological or physical stress, not elsewhere classified Gait instability Abnormality of gait Chest pain Chest pain, unspecified Ataxia Lack of coordination Essential hypertension Unspecified essential hypertension Hypothyroid Unspecified hypothyroidism Diabetes mellitus type 2, uncomplicated (HCC) Type II or unspecified type diabetes mellitus without mention of complication, not stated as uncontrolled Preoperative examination- Primary Preoperative examination, unspecified Class 2 obesity due to excess calories without serious comorbidity with body mass index (BMI) of 36.0 to 36.9 in adult Microcytic anemia Iron deficiency anemia, unspecified Acquired hypothyroidism Unspecified hypothyroidism MYLES (obstructive sleep apnea) Obstructive sleep apnea (adult) (pediatric) Moderate persistent asthma without complication (HCC) Unspecified asthma Mixed hyperlipidemia Essential hypertension Unspecified essential hypertension Gastroesophageal reflux disease, unspecified whether esophagitis present Type 2 diabetes mellitus without complication, without long-term current use of insulin (HCC) Leg edema Edema Preoperative examination Preoperative examination, unspecified [facility] Diagnosis HYPERTENSION NOS Unspecified essential hypertension PURE HYPERCHOLESTEROLEM Pure hypercholesterolemia DIABETES MELLITUS TYPE II UNCONTR UNCOMPL Type II or unspecified type diabetes mellitus without mention of complication, uncontrolled Esophageal reflux SLEEP APNEA NOS Unspecified sleep apnea Vitamin D deficiency Unspecified vitamin D deficiency Asymptomatic postmenopausal status (age-related) (natural) Screening for malignant neoplasm of breast Breast screening, unspecified Hypothyroid Unspecified hypothyroidism Osteopenia Disorder of bone and cartilage, unspecified Need for prophylactic vaccination and inoculation against influenza Dupuytren's contracture of hand Contracture of palmar fascia Low blood potassium Hypopotassemia Difficulty walking- Primary Difficulty in walking Chest pain, unspecified type Stress Other psychological or physical stress, not elsewhere classified Gait instability Abnormality of gait Ataxia Lack of coordination Essential hypertension Unspecified essential hypertension Hypothyroid Unspecified hypothyroidism Diabetes mellitus type 2, uncomplicated (HCC) Type II or unspecified type diabetes mellitus without mention of complication, not stated as uncontrolled Preoperative examination- Primary Preoperative examination, unspecified Class 2 obesity due to excess calories without serious comorbidity with body mass index (BMI) of 36.0 to 36.9 in adult Microcytic anemia Iron deficiency anemia, unspecified Acquired hypothyroidism Unspecified hypothyroidism MYLES (obstructive sleep apnea) Obstructive sleep apnea (adult) (pediatric) Moderate persistent asthma without complication (HCC) Unspecified asthma Mixed hyperlipidemia Essential hypertension Unspecified essential hypertension Gastroesophageal reflux disease, unspecified whether esophagitis present Type 2 diabetes mellitus without complication, without long-term current use of insulin (HCC) Leg edema Edema Thyroid mass- Primary Unspecified disorder of thyroid Papillary thyroid carcinoma (HCC) Malignant neoplasm of thyroid gland [facility] Work Phone[facility] instructions[facility] Work Phone: [facility] instructionsW[facility] Work Phone: [facility] Work Phone: Hospital Discharge instructionsAdditional Instructions Please stop taking the Macrobid/nitrofurantoin as your urine sample today does not correlate with an acute urinary tract infection. Your x-ray and exam are consistent with bronchitis but this is typically a viral infection and will resolve spontaneously. Your heart exam/workup was negative for acute heart damage and your symptoms of abdominal discomfort and nausea were most likely related to adverse effects from the antibiotic. Follow-up with your family doctor for repeat evaluation and return to the ER should you have any further concernsWACMC [facility] System Work Phone: Progress note Author Kaitlyn Condon [facility] Note Date/Time May 14, 2025 10:53am [facility] [address] [place] [address] OFFICE VISIT Date of Service: 05/14/25 MR#: [id number] Acct: [id number] Name: DL PARSONS Rep #: [id number] : 1945 Provider: Dr. 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 Accompanied by: Is patient in pain?: No Allergies Penicillins Allergy (Verified 05/14/25 10:00) Rash Sulfa (Sulfonamide Antibiotics) Allergy (Verified 05/14/25 10:00) Rash calcium Adverse Reaction (Verified 05/14/25 10:00) Constipation sertraline Adverse Reaction (Verified 05/14/25 10:00) Constipation Medications ?Medication ?Instructions ?Recorded ?Confirmed ?Type lancets (Accu-Chek Multiclix #100 ea 07/02/20 05/14/25 History Lancet) geriatric multivitamin-min 1 tab PO .QOD 01/28/2204/17 History handicap placard #1 ea 07/06/23 05/14/25 Rx blood-glucose meter #1 ea 07/11/23 05/14/25 Rx lancets (Accu-Chek Softclix #100 ea 07/11/23 05/14/25 Rx Lancets) accu-check avivia control solutions #1 BOTTLE 07/23/24 05/14/25 Rx amlodipine 10 mg tablet 10 mg PO DAILY BLOOD PRESSUR E #90 07/23/24 05/14/25 Rx tabs atorvastatin 10 mg tablet 10 mg PO QHS CHOLESTEROL #90 tabs 07/23/24 05/14/25 Rx irbesartan 300 1 tab PO DAILY BP #90 tabs 1 09/23/23 05/14/25 Rx mg-hydrochlorothiazide 12.5 mg tablet (Avalide) levothyroxine 75 mcg tablet 75 mcg PO DAILY THYROID #9 0 tabs 07/23/24 05/14/25 Rx metoprolol tartrate 25 mg tablet 25 mg PO BID BLOOD SD ESSURE #180 07/23/24 05/14/25 Rx tabs metformin 500 mg tablet See Rx Instructions PO BID 0 01/31/25 05/14/25 Rx DIABETES #270 tabs omeprazole 20 mg capsule,delayed 20 mg PO DAILY 05/14/25 History release lansoprazole 30 mg capsule,delayed 30 mg PO DAILY 09/0805/14/25 History release blood sugar diagnostic (Accu-Chek #100 ea 03/27/25 Rx Guide test strips) ferrous sulfate 325 mg (65 mg 325 mg PO Q OTHER DAY 05/14/25 History iron) tablet (FeroSul) fluticasone furoate 100 1 inh inhalation Q24H #90 ea 04/04/25 05/14/25 Rx mcg/actuation blister powder for inhalation albuterol sulfate 90 mcg/actuation 2 inh inhalation 4X /DAY PRN 05/03/25 05/14/25 Rx aerosol inhaler bronchospasm #8.5 grams ergocalciferol (vitamin D2) 1,250 1,250 mcg PO QWEEK # 14 caps 05/03/25 05/14/25 Rx mcg (50,000 unit) capsule azithromycin 250 mg tablet See Rx Instructions PO .COM PLEX #6 05/14/25 05/14/25 Rx tabs Have you fallen in the past year?: No PFSH Medical History (Updated 05/14/25 @ 11:[address] Kaitlyn Condon MD) Papillary carcinoma of thyroid Thyroid mass of unclear etiology Family history of dementia Memory deficit Cancer On home oxygen therapy Hypertension Abdominal discomfort Occult blood positive stool Back pain Black stool Acute URI Urinary tract infection Need for influenza vaccination Syncope Wears glasses Post-menopausal Thyroid disease Diabetes Walker as ambulation aid Ambulates with cane Injury of head and neck Gastric reflux Non-smoker History of edema History of echocardiogram History of stress test Bronchitis Shortness of breath on exertion Obesity History of COVID-19 Incontinence Difficulty balancing when standing Knee pain Diarrhea Hemorrhoids COVID-19 Pancreatitis Asthma Arthritis Seasonal allergies Osteopenia Essential hypertension Ascending cholangitis Gallstone pancreatitis Surgical History Hx laparoscopic cholecystectomy History of ERCP History of colonoscopy Cataracts, bilateral H/O: hysterectomy Cholecystectomy planned Family History Mother Diabetes Heart disease Arthritis Hypertension Hyperlipemia Father Colon cancer Heart disease Hypertension Hyperlipemia Cancer prostate Myocardial infarction Social History household members: spouse housing: house Smoking Status: Never smoker alcohol intake: never substance use type: does not use what type of physical activity do you participate in: other details: yard work additional social history: pt denies vaping, denies marijuana use, denies edibles, denies aspirin, denies ibuprofen use. HPI HPI Details: DL PARSONS, is a 80 F who presents to the office today for an acute carefollow-up visit. She has upcoming surgery for thyroid resection. She has papillary thyroid carcinoma relatively recently identified. See my prior note. She had rapid enlargement of the thyroid gland, with possible superinfection at the time. She was transferred from the local to [facility]. She has now been evaluated by endocrine surgery and is scheduled for next Tuesday for thyroid resection. She has been concerned because her developed an acute URI, last week. He continues with some coughing, drainage and congestion as well as her now overthe last 3 or 4 days. She has been using some Mucinex but persist with cough, mild yellow sputum production. No high-grade fever or shaking chills. No chestpain, chest tightness or pressure is reported. No nausea or vomiting. Review of systems per chart. Physical exam. Vital signs on chart. PERRLA. Sclera are clear. TMs are unremarkable with normal light reflexes. Canals are unremarkable. Posterior pharynx is unremarkable. Good dentition. No cervical or supraclavicular lymph nodes enlarged or tender. No clear thyromegaly. No thyroid nodules readily palpable. Lungs are without wheeze, rales. Few scattered upper respiratory rhonchi that partially clears with cough. No E/A changes are heard. Heart is regular. Not tachycardic. No clear murmur, rub, or gallop is identified. The abdomen is soft. Bowel sounds are present. ROS Const Constitutional: No body ache, chills, excessive sweating, fatigue, fever(s), frequent falls, headache(s), snoring, weakness, weight change, sleep problems orchange in appetite Eyes Eyes: No blurry vision, change in vision, eye pain or Light sensitivity ENT ENT: Positive for nasal congestion, nasal discharge and sore throat; No abnormal hearing, ear or mastoid pain, tinnitus, headache(s) or neck pain Resp Respiratory: Positive for cough (Yellow phlegm) Cough: Yes productive and chest congestion; No shortness of breath, snoring or wheezing Cardio Cardiology: No chest pain at rest, chest pain with exertion, excessive sweating,shortness of breath, dyspnea on exertion, lightheadedness, orthopnea or palpitations Gastro GI: No abdominal pain, change in bowel habits, constipation, cramping, diarrhea,nausea/dyspepsia or vomiting Genitourinary-Female: No burning urination, painful urination, urinary incontinence, urinary frequency or abnormal vaginal bleeding Musc Musculoskeletal: No abnormal gait, joint pain, back pain, limited range of motion, neck pain, numbness or tingling Skin Skin: No dry skin, redness, lesions, itchy eyes, rash or wounds Neuro Neurology: No abnormal gait, abnormal hearing, abnormal speech, dizziness, weakness, frequent falls, headache(s), memory loss, numbness or tingling Psych Psychiatric: No anxiety, No change in appetite, No depression, No memory loss and No Thoughts of harming yourself/Others Endo Endocrine: No cold intolerance, excessive sweating, fatigue, flushing, heat intolerance, increased thirst/drinking, increased hunger or weight change Aller/Imm Allergy/Immunologic: No itchy eyes, seasonal allergy symptoms, hives or wheezing Armani/Lymp Hematologic/Lymphatic: No easy bleeding, easy bruising or enlarged lymph nodes Coding Level of Care Code Off vis,est,level 3 Diagnoses Acute URI J06.9 Papillary carcinoma of thyroid C73 Time Spent (min) 30 Assessment and Plan Assessment and Plan (1) Acute URI: Status: Acute (2) Papillary carcinoma of thyroid: Status: Acute Medications: New azithromycin For 250 mg dose pack: take 500 mg today (day 1), then 250 mg for 4 days (days 2-5) PO 6 tabs 0RF Plan Details Additional Comments: Patient presenting as above, with acute upper respiratory tract infection. Because of the upcoming surgery, and desire for really getting this addressed assoon as possible, I would suggest we treat with antibiotic. She has tolerated and usually responds well to Zithromax/Z-Kirby. She can continue with Mucinex, plain for now, keep well-hydrated. She would update us on afternoon after her third dose of Zithromax to see how she is doing. Sooner if she develops high fever, shaking chills or other concerns. Her lung exam today doesnot suggest any pneumonic process. 30-minute visit. Clinical Quality Measures Falls Risk Screening/Assistive Devices Have you fallen in the past year?: No 05/14/25 1135 <Electronically signed by Kaitlyn hoffman MD> Date _ Kaitlyn Condon MD Cosigner Signature: Date (if applicable) CC: ~ [facility] Work Phone: Reason for referral (narrative)No reason for referral information availableWACMC [facility] System Work Phone: Summary Purpose Family History No Family History Records Found Relationship Condition Age at Onset Recorded Date/T rhonda mother Diabetes mellitus Unknown Cardiac disease Unknown Arthritis Unknown Hypertension Unknown Hyperlipidemia Unknown father Malignant neoplasm of colon Unknown Malignant neoplasm Unknown Myocardial infarction Unknown Advance Directives No Advanced Directives Records Found Advance Directive Response Recorded Date/ Time Advance Directives No April 3:34pm Living Will No June 01 10:20pm Power of Analytical Laboratory Technician No June 01, 2020 10:20pm Advance Directive Response Recorded Date/ Time Advance Directives No April 3:34pm Living Will No December 16, 2021 3: 13pm Power of Analytical Laboratory Technician No December 16, 2021 3:13pm Advance Directive Response Recorded Date/ Time Advance Directives No April 3:34pm Living Will No January 28, 2022 11:35am Power of Analytical Laboratory Technician No January 28 11:35am Advance Directive Response Recorded Date/ Time Advance Directives No April 2:34pm Living Will No January 28, 2022 10:35am Power of Analytical Laboratory Technician No January 28 10:35am Advance Directive Response Recorded Date/ Time Living Will No October 04 025 2:54pm Do you have a Healthcare Power of Analytical Laboratory Technician? No October 04, 2024 2:54pm Advance Directives No May 24, 2024 11:15am Advance Directive Response Recorded Date/ Time Advance Directives No May 24, 2024 11:15am Advance Directive Response Recorded Date/ Time Do you have a Healthcare Power of Analytical Laboratory Technician? No February 18, 2025 11:40pm Advance Directives No May 24, 2024 11:15am Advance Directive Response Recorded Date/ Time Do you have a Healthcare Power of Analytical Laboratory Technician? No February 18, 2025 11:40pm Do you have a Healthcare Power of Analytical Laboratory Technician? No March 15, 2025 5:04pm Advance Directives No May 24, 2024 11:15am Date Activated Date Inactivated Comments 03/18/2025 10:41 AM 03/18/2025 6:33 PM Question Answer Comments Full Code Order Discussed With: Patient Date Activated Date Inactivated Comments 03/18/2025 10:41 AM 03/18/2025 6:33 PM Question Answer Comments Full Code Order Discussed With: Patient Hospital Course Note HNO ID: [id number] Author: Reece Lei Service: Hospital Medicine Author Type: Physician Type: Discharge Summary Filed: 07/26/2019 3:24 PM Note Text: DISCHARGE SUMMARY PATIENT NAME: Dl Parsons Code Status: Not on file Highest Readmission Risk Score: 10 The 30 day readmissions risk score is derived from an internally validated risk model which evaluates patient level characteristics, utilization history, medication orders and lab results up until the day of discharge. Patients with a score of 40 or above are considered highest risk for readmission. Specific patient level drivers will be listed at the bottom of the summary. Admission Information Admission Information ADMIT DATE: 07/25/2019 DISCHARGE DATE: 07/26/19 MY DOCTORS AND MEDICAL TEAM: My Main Hospital Doctor: Jose Lei Primary Care Provider: Clarisa Pastrana MD My Medical Team Members: Treatment Team: Attending Provider: Jose Lei MY CONDITION AT DISCHARGE: Stable REASON I WAS IN THE HOSP (more content not included)... Chief Complaint and Reason for Visit Chief Complaint FOLLOW UP RECTAL BLEEDING Reason for Visit BRBPR (bright red bl ood per rectum) Chest discomfort Dyspnea Asthma Essential hypertension GERD (gastroesophageal reflux disease) Hyperlipidemia Hypothyroidism Obesity Type 2 diabetes mellitus BRBPR (bright red blood per rectum) Chief Complaint FOLLOW UP RECTAL BLEEDING HYPERTENSION Reason for Visit BRBPR (bright red bl ood per rectum) Chest discomfort Dyspnea Asthma Essential hypertension GERD (gastroesophageal reflux disease) Hyperlipidemia Hypothyroidism Obesity Type 2 diabetes mellitus BRBPR (bright red blood per rectum) Chief Complaint FOLLOW UP RECTAL BLEEDING HYPERTENSION HYPERTENSION DYSPNEA DYSPNEA Reason for Visit BRBPR (bright red bl ood per rectum) Chest discomfort Dyspnea Asthma Essential hypertension GERD (gastroesophageal reflux disease) Hyperlipidemia Hypothyroidism Obesity Type 2 diabetes mellitus BRBPR (bright red blood per rectum) Chief Complaint FOLLOW UP RECTAL BLEEDING HYPERTENSION HYPERTENSION DYSPNEA DYSPNEA Reason for Visit BRBPR (bright red bl ood per rectum) Chest discomfort Dyspnea Asthma Essential hypertension GERD (gastroesophageal reflux disease) Hyperlipidemia Hypothyroidism Obesity Type 2 diabetes mellitus BRBPR (bright red blood per rectum) BRBPR (bright red blood per rectum) Chief Complaint 4 M FU INT LAB SCREENING LEFT BREAST ABNORMAL MAMMO Reason for Visit Essential hypertensi on GERD (gastroesophageal reflux disease) Hyperlipidemia Hypothyroidism Obesity Type 2 diabetes mellitus Chief Complaint 5 m fu INT LAB Reason for Visit Essential hypertensi on GERD (gastroesophageal reflux disease) Hyperlipidemia Hypothyroidism Obesity Type 2 diabetes mellitus Chief Complaint 5 m fu INT LAB INT LABS Reason for Visit Essential hypertensi on GERD (gastroesophageal reflux disease) Hyperlipidemia Hypothyroidism Obesity Type 2 diabetes mellitus Chief Complaint Admit Date 3 WK MED CHECK November 28, 2024 8:5 5am 6 M FU December 19, 2024 8:29am INT LABS January 29, 2025 8:18 am Reason for Visit Admit Date Barretts esophagus November 28, 2024 8:5 5am Essential hypertension December 19, 2024 8:2 9am Hyperlipidemia December 19, 2024 8:29am Hypothyroidism December 19, 2024 8:29am Obesity December 19, 2024 8:29am Osteopenia December 19, 2024 8:29am Type 2 diabetes mellitus December 19, 2024 8 :29am Chief Complaint Admit Date 3 WK MED CHECK November 28, 2024 8:5 5am 6 M FU December 19, 2024 8:29am INT LABS January 29, 2025 8:18 am OSTEOPOROSIS, SCREENING February 05, 2025 10:51am Chief Complaint Admit Date 3 WK MED CHECK November 28, 2024 8:5 5am 6 M FU December 19, 2024 8:29am INT LABS January 29, 2025 8:18 am OSTEOPOROSIS, SCREENING February 05, 2025 10:51am CONCERN FOR UTI February 16, 2025 10:41 am Chief Complaint Admit Date 3 WK MED CHECK November 28, 2024 8:5 5am 6 M FU December 19, 2024 8:29am INT LABS January 29, 2025 8:18 am OSTEOPOROSIS, SCREENING February 05, 2025 10:51am CONCERN FOR UTI February 16, 2025 10:41 am General illness February 18, 2025 9:15p m Reason for Visit Admit Date Barretts esophagus November 28, 2024 8:5 5am Essential hypertension December 19, 2024 8:2 9am Hyperlipidemia December 19, 2024 8:29am Hypothyroidism December 19, 2024 8:29am Obesity December 19, 2024 8:29am Osteopenia December 19, 2024 8:29am Type 2 diabetes mellitus December 19, 2024 8 :29am Acute cystitis with hematuria February 16, 2025 10:41am Chief Complaint Admit Date 3 WK MED CHECK November 28, 2024 8:5 5am 6 M FU December 19, 2024 8:29am INT LABS January 29, 2025 8:18 am OSTEOPOROSIS, SCREENING February 05, 2025 10:51am CONCERN FOR UTI February 16, 2025 10:41 am General illness February 18, 2025 9:15p m INT LAB ORDER OR URINE ONLY LABS NOT UNT [place] SEP March 14, 2025 11:15am UTI March 15, 2025 4:1 5pm Chief Complaint Admit Date 3 WK MED CHECK November 28, 2024 8:5 5am 6 M FU December 19, 2024 8:29am INT LABS January 29, 2025 8:18 am OSTEOPOROSIS, SCREENING February 05, 2025 10:51am CONCERN FOR UTI February 16, 2025 10:41 am General illness February 18, 2025 9:15p m INT LAB ORDER OR URINE ONLY LABS NOT UNT [place] AprMarch 14, 2025 11:15am UTI March 15, 2025 4:1 5pm UTI FU March 27, 2025 10 :59am Reason for Visit Admit Date Barretts esophagus November 28, 2024 8:5 5am Essential hypertension December 19, 2024 8:2 9am Hyperlipidemia December 19, 2024 8:29am Hypothyroidism December 19, 2024 8:29am Obesity December 19, 2024 8:29am Osteopenia December 19, 2024 8:29am Type 2 diabetes mellitus December 19, 2024 8 :29am Acute cystitis with hematuria February 16, 2025 10:41am Dysuria March 27, 2025 10 :59am Thyroid mass of unclear etiology March 27, 2025 10:59am Hypothyroidism March 27, 2025 10 :59am Chief Complaint Admit Date INT LABS January 29, 2025 8:18 am OSTEOPOROSIS, SCREENING February 05, 2025 10:51am CONCERN FOR UTI February 16, 2025 10:41 am General illness February 18, 2025 9:15p m INT LAB ORDER OR URINE ONLY LABS NOT UNT [place] SEP March 14, 2025 11:15am UTI March 15, 2025 4:1 5pm UTI FU March 27, 2025 10 :59am Cough, Congestion May 14, 2025 10:00am Reason for Visit Admit Date Acute cystitis with hematuria February 16, 2025 10:41am Dysuria March 27, 2025 10 :59am Thyroid mass of unclear etiology March 27, 2025 10:59am Hypothyroidism March 27, 2025 10 :59am Acute URI May 14, 2025 10:00am Papillary carcinoma of thyroid May 14, 2025 10:00am Additional Source Comments INFORMATION SOURCE (unrecogn ized section and content) DATE CREATED AUTHOR 02/03/2018 [facility] DATE CREATED AUTHOR AUTHOR'S ORGANIZ ATION 02/03/2018 [facility] DATE CREATED AUTHOR AUTHOR'S ORGANIZ ATION 07/27/2019 [facility] DATE CREATED AUTHOR AUTHOR'S ORGANIZ ATION 11/19/2020 [facility] DATE CREATED AUTHOR AUTHOR'S ORGANIZ ATION 06/22/2025 [facility] DATE CREATED AUTHOR AUTHOR'S ORGANIZ ATION 06/25/2025 [facility] Goals (unrecognized section and content) Goals may be documented in a n alternate sectionGoals may be documented in an alternate sectionGoals may be documented in an alternate sectionGoals may be documented in an alternate sectionGoals may be documented in an alternate sectionGoals may be documented in an alternate sectionGoals may be documented in an alternate sectionGoals may be documented in an alternate sectionGoals may be documented in an alternate sectionGoals may be documented in an alternate sectionGoals may be documented in an alternate sectionGoals may be documented in an alternate sectionGoals may be documented in an alternate sectionGoals may be documented in an alternate sectionGoals may be documented in an alternate section Care Teams (unrecognized sec tion and content) Team Status: Active Member Role Status Dates Dr. Clarisa Pastrana MD Family Provider Active Dr. Kaitlyn Condon MD Primary Care Provider Active Team Status: Inactive Member Role Status Dates Dr. Kaitlyn Condon MD Primary Care Provider, Attendi ng Provider Active Team Status: Inactive Member Role Status Dates Dr. Kaitlyn Condon MD Primary Care Pro vider, Attending Provider, Referring Provider Active Team Status: Active Member Role Status Dates Dr. Kaitlyn Condon MD Primary Care Provider Active Team Status: Inactive Member Role Status Dates Dr. Kaitlyn Condon MD Primary Care Provider Active Start: October 09, 2024 End: October 09, 2024 Dr. Kaitlyn Condon MD Referring Provider Active Start: October 09, 2024 End: October 09, 2024 Dr. Trevon Vee MD Attending Provider Active Start: October 09, 2024 End: October 09, 2024 Team Status: Active Member Role Status Dates Dr. Kaitlyn Condon MD Primary Care Provider Active Start: October 09, 2024 Dr. Kaitlyn Condon MD Referring Provider Active Start: October 09, 2024 Dr. Trevon Vee MD Attending Provider Active Start: October 09, 2024 Dr. Trevon Vee MD Other Provider Active Start: October 09, 2024 Team Status: Inactive Member Role Status Dates Dr. Kaitlyn Condon MD Primary Care Provider Active Start: November 28, 2024 End: November 28, 2024 Dr. Kaitlyn Condon MD Referring Provider Active Start: November 28, 2024 End: November 28, 2024 Dr. Trevon Vee MD Attending Provider Active Start: November 28, 2024 End: November 28, 2024 Team Status: Inactive Member Role Status Dates Dr. Kaitlyn Condon MD Primary Care Provider Active Start: December 19, 2024 End: December 19, 2024 Dr. Kaitlyn Condon MD Attending Provider Active Start: December 19, 2024 End: December 19, 2024 Team Status: Inactive Member Role Status Dates Dr. Kaitlyn Condon MD Primary Care Provider Active Start: January 29, 2025 End: January 29, 2025 Dr. Kaitlyn Condon MD Attending Provider Active Start: January 29, 2025 End: January 29, 2025 Dr. Kaitlyn Condon MD Referring Provider Active Start: January 29, 2025 End: January 29, 2025 Team Status: Active Member Role/Relationship Status Dates Dr. Kaitlyn Condon MD Primary Care Provider Active Team Status: Inactive Member Role/Relationship Status Dates Dr. Kaitlyn Condon MD Primary Care Provider Active Start: November 28, 2024 End: November 28, 2024 Dr. Kaitlyn Condon MD Referring Provider Active Start: November 28, 2024 End: November 28, 2024 Dr. Trevon Vee MD Attending Provider Active Start: November 28, 2024 End: November 28, 2024 Team Status: Inactive Member Role/Relationship Status Dates Dr. Kaitlyn Condon MD Primary Care Provider Active Start: December 19, 2024 End: December 19, 2024 Dr. Kaitlyn Condon MD Attending Provider Active Start: December 19, 2024 End: December 19, 2024 Team Status: Inactive Member Role/Relationship Status Dates Dr. Kaitlyn Condon MD Primary Care Provider Active Start: January 29, 2025 End: January 29, 2025 Dr. Kaitlyn Condon MD Attending Provider Active Start: January 29, 2025 End: January 29, 2025 Dr. Kaitlyn Condon MD Referring Provider Active Start: January 29, 2025 End: January 29, 2025 Team Status: Inactive Member Role/Relationship Status Dates Dr. Kaitlyn Condon MD Primary Care Provider Active Start: February 05, 2025 End: February 05, 2025 Dr. Kaitlyn Condon MD Attending Provider Active Start: February 05, 2025 End: February 05, 2025 Dr. Kaitlyn Condon MD Referring Provider Active Start: February 05, 2025 End: February 05, 2025 Team Status: Inactive Member Role/Relationship Status Dates Dr. Kaitlyn Condon MD Primary Care Provider Active Start: February 16, 2025 End: February 16, 2025 Dr. Kaitlyn Condon MD Referring Provider Active Start: February 16, 2025 End: February 16, 2025 Miriam Garcia NP-C Attending Provider Active Start: February 16, 2025 End: February 16, 2025 Team Status: Active Member Role/Relationship Status Dates Dr. Kaitlyn Condon MD Primary Care Provider Active Start: February 16, 2025 Miriam Garcia NP-C Attending Provider Active Start: February 16, 2025 Team Status: Inactive Member Role/Relationship Status Dates Dr. Kaitlyn Condon MD Primary Care Provider Active Start: February 18, 2025 End: February 19, 2025 Dr. Luis Weathers DO Emergency Provider Active Start: February 18, 2025 End: February 19, 2025 Team Status: Inactive Member Role/Relationship Status Dates Dr. Kaitlyn Condon MD Primary Care Provider Active Start: February 16, 2025 End: February 16, 2025 Miriam Garcia CLAIMS AGENT RIGHT OF WAY-C Attending Provider Active Start: February 16, 2025 End: February 16, 2025 Team Status: Inactive Member Role/Relationship Status Dates Dr. Kaitlyn Condon MD Primary Care Provider Active Start: February 18, 2025 End: February 19, 2025 Dr. Luis Weathers DO Attending Provider Active Start: February 18, 2025 End: February 19, 2025 Dr. Luis Weathers DO Emergency Provider Active Start: February 18, 2025 End: February 19, 2025 Team Status: Active Member Role/Relationship Status Dates Dr. Kaitlyn Condon MD Primary Care Provider Active Start: March 14, 2025 Dr. Kaitlyn Condon MD Attending Provider Active Start: March 14, 2025 Dr. Kaitlyn Condon MD Referring Provider Active Start: March 14, 2025 Team Status: Inactive Member Role/Relationship Status Dates Dr. Kaitlyn Condon MD Primary Care Provider Active Start: March 15, 2025 End: March 16, 2025 Dr. Seamus Zhou DO Emergency Provider Active S tart: March 15, 2025 End: March 16, 2025 Team Status: Inactive Member Role/Relationship Status Dates Dr. Kaitlyn Condon MD Primary Care Provider Active Start: March 14, 2025 End: March 14, 2025 Dr. Kaitlyn Condon MD Attending Provider Active Start: March 14, 2025 End: March 14, 2025 Dr. Kaitlyn Condon MD Referring Provider Active Start: March 14, 2025 End: March 14, 2025 Team Status: Inactive Member Role/Relationship Status Dates Dr. Kaitlyn Condon MD Primary Care Provider Active Start: March 27, 2025 End: March 27, 2025 Dr. Kaitlyn Condon MD Attending Provider Active Start: March 27, 2025 End: March 27, 2025 [employer] Relationship Specialty Start Date End Date Kaitlyn Condon MD [address] [place] [address] PCP - General Internal Medicine 04/29/20 [employer] Relationship Specialty Start Date End Date Kaitlyn Condon MD [address] [place] [address] PCP - General Internal Medicine 04/29/20 [employer] Relationship Specialty Start Date End Date Kaitlyn Condon MD [address] [place] [address] PCP - General Internal Medicine 04/29/20 [employer] Relationship Specialty Start Date End Date Kaitlyn Condon MD [address] [place] [address] PCP - General Internal Medicine 04/29/20 [employer] Relationship Specialty Start Date End Date Kaitlyn Condon MD [address] [place] [address] PCP - General Internal Medicine 04/29/20 [employer] Relationship Specialty Start Date End Date Kaitlyn Condon MD [address] [place] [address] PCP - General Internal Medicine 04/29/20 [employer] Relationship Specialty Start Date End Date Kaitlyn Condon MD [address] [place] [address] PCP - General Internal Medicine 04/29/20 [employer] Relationship Specialty Start Date End Date Kaitlyn Condon MD [address] [place] [address] PCP - General Internal Medicine 04/29/20 Team Status: Active Member Role/Relationship Status Dates Dr. Kaitlyn Condon MD Primary care physician Active Team Status: Inactive Member Role/Relationship Status Dates Dr. Kaitlyn Condon MD Primary care physician Active Start: January 29, 2025 End: January 29, 2025 Dr. Kaitlyn Condon MD Attending physician Active Start: January 29, 2025 End: January 29, 2025 Dr. Kaitlyn Condon MD Referring Provider Active Start: January 29, 2025 End: January 29, 2025 Team Status: Inactive Member Role/Relationship Status Dates Dr. Kaitlyn Condon MD Primary care physician Active Start: February 05, 2025 End: February 05, 2025 Dr. Kaitlyn Condon MD Attending physician Active Start: February 05, 2025 End: February 05, 2025 Dr. Kaitlyn Condon MD Referring Provider Active Start: February 05, 2025 End: February 05, 2025 Team Status: Inactive Member Role/Relationship Status Dates Dr. Kaitlyn Condon MD Primary care physician Active Start: February 16, 2025 End: February 16, 2025 Dr. Kaitlyn Condon MD Referring Provider Active Start: February 16, 2025 End: February 16, 2025 ROCIO Caruso Attending physician Active Start: February 16, 2025 End: February 16, 2025 Team Status: Inactive Member Role/Relationship Status Dates Dr. Kaitlyn Condon MD Primary care physician Active Start: February 16, 2025 End: February 16, 2025 ROCIO Caruso Attending physician Active Start: February 16, 2025 End: February 16, 2025 Team Status: Inactive Member Role/Relationship Status Dates Dr. Kaitlyn Condon MD Primary care physician Active Start: February 18, 2025 End: February 19, 2025 Dr. Luis Weathers DO Attending physician Active Start: February 18, 2025 End: February 19, 2025 Dr. Luis Weathers DO Emergency Department Physician A ctive Start: February 18, 2025 End: February 19, 2025 Team Status: Inactive Member Role/Relationship Status Dates Dr. Kaitlyn Condon MD Primary care physician Active Start: March 14, 2025 End: March 14, 2025 Dr. Kaitlyn Condon MD Attending physician Active Start: March 14, 2025 End: March 14, 2025 Dr. Kaitlyn Condon MD Referring Provider Active Start: March 14, 2025 End: March 14, 2025 Team Status: Inactive Member Role/Relationship Status Dates Dr. Kaitlyn Condon MD Primary care physician Active Start: March 15, 2025 End: March 16, 2025 Dr. Seamus Zhou DO Attending physician Active Start: March 15, 2025 End: March 16, 2025 Dr. Seamus Zhou DO Emergency Department Physician Ac tive Start: March 15, 2025 End: March 16, 2025 Team Status: Inactive Member Role/Relationship Status Dates Dr. Kaitlyn Condon MD Primary care physician Active Start: March 27, 2025 End: March 27, 2025 Dr. Kaitlyn Condon MD Attending physician Active Start: March 27, 2025 End: March 27, 2025 Team Status: Inactive Member Role/Relationship Status Dates Dr. Kaitlyn Condon MD Primary care physician Active Start: May 14, 2025 End: May 14, 2025 Dr. Kaitlyn Condon MD Attending physician Active Start: May 14, 2025 End: May 14, 2025 Source Comments (unrecognize d section and content) In the event this informatio n is protected by the Federal Confidentiality of Alcohol and Drug Abuse Patient Records regulations: The Federal rules restrict any use of the information to criminally investigate or prosecute any alcohol or drug abuse patient.[facility] the event this information is protected by the Federal Confidentiality of Alcohol and Drug Abuse Patient Records regulations: The Federal rules restrict any use of the information to criminally investigate or prosecute any alcohol or drug abuse patient.[facility] HospitalIn the event this information is protected by the Federal Confidentiality of Alcohol and Drug Abuse Patient Records regulations: The Federal rules restrict any use of the information to criminally investigate or prosecute any alcohol or drug abuse patient.[facility]In the event this information is protected by the Federal Confidentiality of Alcohol and Drug Abuse Patient Records regulations: The Federal rules restrict any use of the information to criminally investigate or prosecute any alcohol or drug abuse patient.[facility] HospitalIn the event this information is protected by the Federal Confidentiality of Alcohol and Drug Abuse Patient Records regulations: The Federal rules restrict any use of the information to criminally investigate or prosecute any alcohol or drug abuse patient.[facility] HospitalIn the event this information is protected by the Federal Confidentiality of Alcohol and Drug Abuse Patient Records regulations: The Federal rules restrict any use of the information to criminally investigate or prosecute any alcohol or drug abuse patient.[facility] HospitalIn the event this information is protected by the Federal Confidentiality of Alcohol and Drug Abuse Patient Records regulations: The Federal rules restrict any use of the information to criminally investigate or prosecute any alcohol or drug abuse patient.[facility] HospitalIn the event this information is protected by the Federal Confidentiality of Alcohol and Drug Abuse Patient Records regulations: The Federal rules restrict any use of the information to criminally investigate or prosecute any alcohol or drug abuse patient.[facility] HospitalIn the event this information is protected by the Federal Confidentiality of Alcohol and Drug Abuse Patient Records regulations: The Federal rules restrict any use of the information to criminally investigate or prosecute any alcohol or drug abuse patient.[facility] Reason for Visit (unrecogniz ed section and content) Reason Comments Radiology US Specialty Diagnoses / Procedures Referred By Contac t Referred To Contact [facility] Diagnoses Thyroid mass Procedures US THYROID/PARATHYROID US SOFT TISSUE HEAD & NECK REAL TIME IMGE Aydin Hernandez V, MD [address] [place] [address] Phone: tel: fax: [phone] Referral ID Status Reason Start Date Expiration Date V isits Requested Visits Authorized [id number] Closed Auto-Generate d Referral 03/24/2025 04/16/2026 1 1 Reason Comments New Patient Thyroid Reason Comments Appointment Reason Comments Anesthesia Consult Specialty Diagnoses / Procedures Referred By Contac t Referred To Contact Diagnoses Papillary thyroid carcinoma (HCC) Procedures OFFICE/OUTPATIENT NEW HIGH MDM 60 MINUTES Otolaryngology [address] [place] [address] Phone: tel: fax: Referral ID Status Reason Start Date Expiration Date V isits Requested Visits Authorized [id number] Closed PCP Requested Referral 04/10/2025 04/10/2026 1 1 Reason Comments Radio Gen RMP Radiology Service Pr ogress NotePATIENT NAME: Dl HerrontMRN: [id number] OF SERVICE: April 19, 2025TIME: 12:14 PMPATIENT IDENTITY VERIFICATION COMPLETED USING TWO (2) IDENTIFIERS: Name and Date of confirmed by patient verbally.FALL SCREENING: Has the patient had 2 falls in the last year or 1 fall with injury or currently using an Ambulatory Assistive Device (Walker, Cane, Wheelchair, Crutches, etc.)? NoPATIENT GENDER DATA: Assigned female at . Reason Comments Patient Education Pre op Reason Comments New Patient FOR RECORDS PERTAINING TO PATIENTS WHO ARE OR HAVE BEEN ENROLLED IN A CHEMICAL DEPENDENCY/SUBSTANCEABUSE PROGRAM, SOME INFORMATION MAY BE OMITTED. This clinical summary was aggregated from multiple sources. Caution should be exercised in using it in the provision of clinical care. This summary normalizes information from multiple sources, and as a consequence, information in this document may materially change the coding, format and clinical context of patient data. In addition, data may be omitted in some cases. CLINICAL DECISIONS SHOULD BE BASED ON THE PRIMARY CLINICAL RECORDS. [employer] provides no warranty or guarantee of the accuracy or completeness of information in this document.
[2025-07-01 08:05] LABS: Hematocrit 38.7 % (37-47); Hemoglobin 12.6 g/dL (12.0-15.0); Immature Granulocytes Count 0.030 X10^3/uL (0.0-0.0); Mean Corp Hgb Conc 32.6 g/dL (32-36); Mean Corpuscular Volume 83.4 fL (81-99); Mean Platelet Vol. 9.5 fl (6.2-12.0); NRBC Flagged by Analyzer 0 % (0-5); Platelet Count 411 K/mm3 (150-450); RBC Distribution Width CV 14.6 % (11.6-14.6); RBC Distribution Width SD 44.7 fl (35.1-43.9); Red Blood Count 4.64 M/mm3 (4.2-5.4); White Blood Count 8.7 K/mm3 (4.4-11.0)
[2025-07-01 09:11] LABS: AST(SGOT) 15 U/L (<=31); Alanine Aminotransfer ALT/SGPT 13 U/L (<=34); Albumin, Serum 4.2 g/dL (3.4-4.8); Alkaline Phosphatase 83 U/L (35-104); Anion Gap 12 (5-15); BUN 12 mg/dL (4-19); BUN/Creat Ratio 14.6 RATIO (10-20); Calcium,Total 9.8 mg/dL (7.6-11.0); Carbon Dioxide 26.9 mmol/L (21.0-32.0); Chloride 98 mmol/L (98-108); Cholesterol 137 mg/dL (<=200); Free T3 2.8 pg/mL (2.18-3.98); Globulin 3.2 g/dL (2.2-4.2); Glucose 146 mg/dL (70-99); Low Density Lipoprotein Calc. 58 mg/dL; Potassium 4.1 mmol/L (3.3-5.1); Triglycerides 101 mg/dL; Very Low Density Lipoprotein 20 mg/dL (5-40); Vitamin B12 363 pg/mL (180-914); Vitamin D,25 Hydroxy 50.4 ng/mL (30-100); cholesterol:hdl ratio screen 2.26
[2025-07-01 09:31] LABS: Iron 60 ug/dL (50-170); Iron Binding Capacity,Total 393 ug/dL (250-450); Iron Binding Capacity,Unsat 333 ug/dL (228-428); Magnesium 1.8 mg/dL (1.5-2.2)
== END | disposition home or self-care (01) ==
LOC: LAB 07:13
PROVIDERS: PCP Internal Medicine; Referring Provider Internal Medicine; Visit Provider Internal Medicine
DX: E03.9 Hypothyroidism, unspecified (principal); C73 Malignant neoplasm of thyroid gland; E11.65 Type 2 diabetes mellitus with hyperglycemia; E66.9 Obesity, unspecified; I10 Essential (primary) hypertension; E78.5 Hyperlipidemia, unspecified; Z13.220 Encounter for screening for lipoid disorders; E55.9 Vitamin D deficiency, unspecified; E61.1 Iron deficiency; E53.8 Deficiency of other specified B group vitamins
CPT/HCPCS: 36415; 80053; 80061; 82306; 82607; 83036; 83540; 83550; 83735; 84439; 84443; 84481; 85025

== ENCOUNTER → 2025-07-25 | Outpatient (CLI) | payer MEDICARE, SELFPAY ==
[2025-07-25 12:18] LABS: Free T3 2.4 pg/mL (2.18-3.98)
== END | disposition home or self-care (01) ==
LOC: LAB 11:01
PROVIDERS: PCP Internal Medicine; Referring Provider Internal Medicine; Visit Provider Internal Medicine
DX: E03.9 Hypothyroidism, unspecified (principal)
CPT/HCPCS: 36415; 84439; 84443; 84481